=== PATIENT | male | born 1965 | race African-American/Black ===

== ENCOUNTER → 2016-08-22 | Outpatient (REF) | payer MEDICAID ==
[~2016-08-22] MED LIST: /ADVA50050 IN; /AMLO25TA PO; /CLON1TA PO; /MOXI40TA PO; /QUET10TA OR; /SUCR1TA OR; /THIA10TA; /THIA10TA OR; ALBU17IN INH; ALBU17IN2 INH; ASPI325T PO; ATEN50TA2 PO; ATENPOW PO; ATOR40TA PO; ATRIPLA OR; ATRIPLA PO; BIAX500T; BUPR150T3 PO; BUPR15TA PO; BUPR75TA5 PO; CATA0.3T; CLON-412 PO; CLON0.2T OR; DESYREL; DILA2TAB OR; DULE200A INH; FOLI1TAB; FOLI1TAB OR; FOLI1TAB86 PO; FOLI5INJ2 PO; GABA-283 PO; HIV MED PO; IBUP60TA PO; IBUP800T23 PO; MELA1CAP2 PO; MUCI600T34 PO; MULTIVIT PO; Magnesium Oxide PO; NICO21DI4 TD; NICO21DI5 TD; NORV5TAB OR; NORV5TAB PO; NYSTATIN ORAL OR; NYSTATIN ORAL PO; OMEP40CA2 PO; PAXI20TA OR; PERC5TAB6 PO; PERC5TAB8; PERC5TAB8 OR; PERCOCET PO; PRIL40CA OR; QUET1TAB10 PO; SERO1TAB2 PO; SERO200T PO; TENO50TA PO; THERGRAN PO; TRAZ100T4 PO; TYLE325T5 PO; VITA100T2 PO; VITA100T60 PO; VITACHTA PO; WELL100T OR; WELL100T PO; WELL150T PO; WELL75TA PO; ZANT150T; ZANT150T OR; ZOFR20TA PO; ZOFR4SOL PO; ZOLO100T PO; albuterol inhaler INH; clonidine PO
[2016-08-22 16:14] LABS: ALBUMIN 3.7 GM/DL (3.2-5.2); ALBUMIN/GLOBULIN RATIO 0.84 (1.00-1.93); ALKALINE PHOSPHATASE 97 U/L (45-117); ALT/SGPT 46 U/L (12-78); AMYLASE 55 U/L (25-115); ANION GAP 7 MEQ/L (8-16); AST/SGOT 33 U/L (15-37); BILIRUBIN,TOTAL 0.2 MG/DL (0.2-1.0); BLOOD UREA NITROGEN 10 MG/DL (7-18); CALCIUM LEVEL 9.3 MG/DL (8.5-10.1); CARBON DIOXIDE LEVEL 29 MEQ/L (21-32); CHLORIDE LEVEL 102 MEQ/L (98-107); CHOLESTEROL LEVEL 178 MG/DL (<200); CREATININE FOR GFR 1.18 MG/DL (0.70-1.30); GLOMERULAR FILTRATION RATE > 60.0 (>56); GLUCOSE, FASTING 76 MG/DL (70-105); POTASSIUM SERUM 4.4 MEQ/L (3.5-5.1); SODIUM LEVEL 138 MEQ/L (136-145); TOTAL PROTEIN 8.1 GM/DL (6.4-8.2); TRIGLYCERIDES LEVEL 116 MG/DL (<150)
[2016-08-24 14:13] LABS: %CD3+CD4+CD8+ 4.7 % (Not Estab.); %CD3+CD4+CD8- 45.3 % (Not Estab.); %CD3+CD4-CD8+ 29.8 % (Not Estab.); %CD3+CD4-CD8- 2.3 % (Not Estab.); ABS CD3+CD4+CD8+ 85 /uL (Not Estab.); ABS CD3+CD4+CD8- 815 /uL (Not Estab.); ABS CD3+CD4-CD8+ 536 /uL (Not Estab.); ABS CD3+CD4-CD8- 41 /uL (Not Estab.); CD4/CD8 NYSDOH RATIO 1.52 (Not Estab.); Eosinophils 1 % (.); HCT 39.9 % (37.5-51.0); HGB 13.4 g/dL (12.6-17.7); Monocytes 9 % (.); Neutrophils 41 % (.); WBC 3.8 x10E3/uL (3.4-10.8)
== END ==
LOC: M SFHCPLAZ 12:16
PROVIDERS: ATTEND Internal Medicine Infectious Disease
DX: K86.0 Alcohol-induced chronic pancreatitis (principal); B20 Human immunodeficiency virus [HIV] disease; Z13.220 Encounter for screening for lipoid disorders

== ENCOUNTER → 2016-12-12 | Outpatient (REF) | payer MEDICAID ==
[2016-12-12 13:04] LABS: ALBUMIN 3.9 GM/DL (3.2-5.2); ALBUMIN/GLOBULIN RATIO 0.87 (1.00-1.93); ALKALINE PHOSPHATASE 139 U/L (45-117); ALT/SGPT 45 U/L (12-78); ANION GAP 8 MEQ/L (8-16); AST/SGOT 30 U/L (15-37); BILIRUBIN,TOTAL 0.1 MG/DL (0.2-1.0); BLOOD UREA NITROGEN 16 MG/DL (7-18); CALCIUM LEVEL 8.7 MG/DL (8.5-10.1); CARBON DIOXIDE LEVEL 26 MEQ/L (21-32); CHLORIDE LEVEL 104 MEQ/L (98-107); CREATININE FOR GFR 1.24 MG/DL (0.70-1.30); GLOMERULAR FILTRATION RATE > 60.0 (>56); GLUCOSE, FASTING 119 MG/DL (70-105); POTASSIUM SERUM 4.5 MEQ/L (3.5-5.1); SODIUM LEVEL 138 MEQ/L (136-145); TOTAL PROTEIN 8.4 GM/DL (6.4-8.2)
[2016-12-14 00:07] LABS: %CD3+CD4+CD8+ 4.8 % (Not Estab.); %CD3+CD4+CD8- 40.1 % (Not Estab.); %CD3+CD4-CD8+ 27.1 % (Not Estab.); %CD3+CD4-CD8- 1.7 % (Not Estab.); ABS CD3+CD4+CD8+ 120 /uL (Not Estab.); ABS CD3+CD4+CD8- 1003 /uL (Not Estab.); ABS CD3+CD4-CD8+ 678 /uL (Not Estab.); ABS CD3+CD4-CD8- 43 /uL (Not Estab.); CD4/CD8 NYSDOH RATIO 1.48 (Not Estab.); Eosinophils 5 % (.); HCT 38.9 % (37.5-51.0); HGB 13.2 g/dL (12.6-17.7); Monocytes 11 % (.); Neutrophils 40 % (.); WBC 5.5 x10E3/uL (3.4-10.8)
== END ==
LOC: M SFHCPLAZ 09:54
PROVIDERS: ATTEND Internal Medicine Infectious Disease
DX: B20 Human immunodeficiency virus [HIV] disease (principal); R39.198 Other difficulties with micturition

== ENCOUNTER 2017-02-17 15:44 | Inpatient (IN) | payer MEDICAID ==
[~2017-02-17] VITALS: Ht 175.3 cm; Wt 70.8 kg
[~2017-02-17 15:44] MED LIST changes: -ATOR40TA PO; +ATOR40TA75 PO; +IBUP1TAB6 PO; +IBUP1TAB7 PO; -IBUP60TA PO; -IBUP800T23 PO; +PERC5TAB12 PO; -PERC5TAB6 PO; +TRAZ-136 PO; -TRAZ100T4 PO
[2017-02-17] MEDS ORDERED: MIRT45TA PO (16:05)
[2017-02-17] MEDS ORDERED: BUPR300T34 PO (17:21)
[2017-02-17] MEDS ORDERED: HYDR-643 PO (17:21)
[2017-02-17] MEDS ORDERED: MIRT30TA3 PO (17:21)
[2017-02-17 17:26] LABS: MEAN CORPUSCULAR HGB CONC 34.4 g/dl (32.0-36.5); MEAN CORPUSCULAR VOLUME 93.1 fl (80.0-96.0); RED CELL DISTRIBUTION WIDTH 12.7 % (11.5-14.5); WHITE BLOOD COUNT 5.4 K/mm3 (4.0-10.0)
[2017-02-17 17:44] LABS: ALBUMIN 3.5 GM/DL (3.2-5.2); ALBUMIN/GLOBULIN RATIO 0.85 (1.00-1.93); ALKALINE PHOSPHATASE 116 U/L (45-117); ALT/SGPT 25 U/L (12-78); ANION GAP 6 MEQ/L (8-16); AST/SGOT 19 U/L (15-37); BILIRUBIN,DIRECT 0.1 MG/DL (0.0-0.2); BILIRUBIN,TOTAL 0.5 MG/DL (0.2-1.0); BLOOD UREA NITROGEN 13 MG/DL (7-18); CALCIUM LEVEL 8.9 MG/DL (8.5-10.1); CARBON DIOXIDE LEVEL 27 MEQ/L (21-32); CHLORIDE LEVEL 104 MEQ/L (98-107); CREATININE FOR GFR 1.27 MG/DL (0.70-1.30); GLOMERULAR FILTRATION RATE > 60.0 (>56); GLUCOSE, FASTING 92 MG/DL (70-105); POTASSIUM SERUM 4.3 MEQ/L (3.5-5.1); SODIUM LEVEL 137 MEQ/L (136-145); TOTAL PROTEIN 7.6 GM/DL (6.4-8.2)
[2017-02-17 18:54] LABS: METHADONE URINE NEGATIVE (NEGATIVE)
[2017-02-17 21:54] VITALS: BP 140/88
[2017-02-17] MEDS: MIRTAZAPINE 15 MG TAB PO SCH (22:48)
[2017-02-17] MEDS: traZODone 100 MG TAB PO SCH (22:49)
[2017-02-18 06:23] VITALS: BP 132/72
[2017-02-18] MEDS: buPROPion **XL** TABLET 150MG (WELLBUTRIN XL) PO SCH (08:44)
[2017-02-18] MEDS: GABAPENTIN 400 MG CAP PO SCH ×3 (08:45→21:30)
[2017-02-18] MEDS: NICOTINE 14 MG/24 HR TRANSDERMAL TD SCH (08:45)
[2017-02-18] MEDS ORDERED: ALBUTEROL 90 MCG/ACT 8GM HFA INHALER INH PRN (09:00)
--- NOTE | 2017-02-18 09:14 | HPEPDOC ---
Medical History and Physical Date of Admission Feb 17, 2017 at 19:23 History and Physical PCP: Dr Gabrielle Moya ATTENDING: Dr. Tu Scott HPI: 51yoM admitted to [facility] for MDD, being medically examined today. He has had upper abdominal pain. Denies nausea or vomiting. Denies diarrhea or constipation. He has been eating and drinking. He reports poor appetite. Denies any fevers, chills, ACOSTA, CP, SOB, cough, palpitations, or changes in bowel or bladder habits. PMHx: HIV Hypertension Asthma Insomnia GERD anxiety Depression History of alcohol use History of alcoholic pancreatitis/chronic pancreatitis PSHX: Right knee surgery EGD 06/06 SOCHX: Resides in: [facility] Marital Status: Single Kids: 4 Employment: Unemployed Tobacco use: One half pack per day ETOH: 6-12 drinks per day Illicit Drugs: Marijuana monthly, cocaine over the past 2 weeks IV Drug Use: Denies Tattoos done unprofessionally: 1 FAMHX: Mother: Alive, well Father: Siblings: Alive, well Children: Alive, well Unexpected deaths due to medical reasons: None. ROS: As noted in HPI, otherwise 11pt ROS of systems reviewed and unremarkable. PE: GEN: 51 yoM, appears stated age. Well-nourished, well developed. No acute distress. Alert and oriented x 3. Pleasant, interactive. HEENT: Normocephalic, atraumatic. Pupils are equal, round, and reactive to light. Extraocular movements are intact. No nystagmus appreciated. Sclera are nonicteric. Conjunctiva without injection. Nose midline. Nasal turbinates without bogginess. EACs both patent BL. TMs both visualized and tolentino with good cone of light, no bulging or erythema. No facial asymmetry. Moist mucous membranes. Dentition fair. Pharynx pink and moist, no cobblestoning. Neck supple , trachea midline. No lymphadenopathy or thyromegaly appreciated. CHEST: Regular rate and rhythm, +S1, +S2 LUNGS: Clear to auscultation bilaterally. No wheezes, rales, or rhonchi. Breathing appears symmetric and easy. Patient is speaking in full sentences. No accessory muscle use. ABD: Flat, soft, Mild TTP epigastric area/RUQ, non-distended. +Bowel sounds throughout. No rebound or guarding. No costovertebral angle tenderness. EXT: Pulses 2+ bilaterally dorsalis pedis and radial. No lower extremity edema appreciated. SKIN: [place], dry, warm. Capillary refill <2sec. No rashes. NEURO: Alert and oriented x 3. Cranial nerves III-XII are intact. No focal deficits appreciated. EKG: Pending A&P: 51yoM admitted to [facility] for MDD 1. Psych. Plan per Psychiatry. Obtain baseline EKG to assure the safety of psychiatric medications as they can prolong the QT interval. 2. Nicotine dependence. Patch available. 3. Abdominal pain. Afebrile. Request CT scan abdomen and pelvis. Update CBC/ CMP. Request amylase/lipase. 4. Follow up with PCP on discharge. 5. Substance use. Per psychiatry. 6. Hypertension. Continue amlodipine 5 mg daily. 7. Asthma. Continue albuterol 2 puffs every 4 hours as needed. 8. GERD. Continue Prilosec 40 mg daily. 9. HIV. Management as per Dr. Moya. Continue with Atripla 1 tablet daily. 10. Staff member Chucho present throughout exam. Vital Signs Vital Signs Date Time Temp Pulse Resp B/P (MAP) Pulse Ox O2 Delivery O2 Flow Rate FiO2 02/18/17 06:23 97.4 71 18 132/72 (92) 02/17/17 21:25 100 Room Air Laboratory Data Labs 24H Laboratory Tests 2 02/17/17 16:32: Urine Amphetamines Screen NEGATIVE, Urine Benzodiazepines Screen NEGATIVE, Urine Opiates Screen NEGATIVE, Urine Methadone Screen NEGATIVE, Urine Barbiturates Screen NEGATIVE, Urine Phencyclidine Screen NEGATIVE, Urine Cocaine Metabolite Screen POSITIVEH, Urine Cannabinoids Screen NEGATIVE 02/17/17 16:51: Anion Gap 6L, Glomerular Filtration Rate > 60.0, Calcium Level 8.9, Aspartate Amino Transf (AST/SGOT) 19, Alanine Aminotransferase (ALT/SGPT) 25, Alkaline Phosphatase 116, Total Bilirubin 0.5, Direct Bilirubin 0.1, Total Protein 7.6, Albumin 3.5, Albumin/Globulin Ratio 0.85L, Thyroid Stimulating Hormone (TSH) 1.190, Salicylates Level 5.5, Acetaminophen Level < 2.0L, Ethyl Alcohol Level < 0.003 CBC/BMP Laboratory Tests 02/17/17 16:51 Red Blood Count 4.47, Mean Corpuscular Volume 93.1, Mean Corpuscular Hemoglobin 32.0, Mean Corpuscular Hemoglobin Concent 34.4, Red Cell Distribution Width 12.7 Home Medications Scheduled Amlodipine Besylate (Norvasc) 5 Mg Tab, 5 MG PO DAILY Bupropion HCl (Bupropion HCl Xl) 300 Mg Tab, 300 MG PO DAILY Efavirenz/Emtricitabine/Tenofi (Atripla 600-200-300 mg) 1 Tab Tab, 1 TAB PO QAM take on an empty stomach Gabapentin (Gabapentin) 400 Mg Cap, 400 MG PO TID Mirtazapine (Mirtazapine) 30 Mg Tab, 30 MG PO QHS Omeprazole (Omeprazole) 40 Mg Cap, 40 MG PO DAILY Trazodone HCl (Trazodone HCl) 100 Mg Tab, 100 MG PO QHS Scheduled PRN Albuterol Sulfate (Ventolin Hfa) 200 Puff/8 Gm Aers, 2 PUFF INH Q4H PRN for SHORTNESS OF BREATH Hydroxyzine HCl (Hydroxyzine HCl) 10 Mg Tab, 10 MG PO BID PRN for ANXIETY/ AGITATION Ibuprofen (Ibuprofen) 600 Mg Tab, 600 MG PO Q6H PRN for PAIN Allergies Coded Allergies: Banana (Verified Allergy, Intermediate, HIVES, 10/28/12) No Known Drug Allergy (Verified Allergy, Unknown, 10/28/12) Sylvia Forrest Feb 18, 2017 09:14
[2017-02-18] MEDS: amLODIPine 5 MG TAB PO SCH (09:28)
[2017-02-18] MEDS: OMEPRAZOLE 20 MG CAP PO SCH (09:28)
[2017-02-18 10:07] LABS: BASO % 1.3 % (0.0-1.0); EOS # 0.1 K/mm3 (0.0-0.50); EOS % 3.6 % (0.0-3.0); LARGE UNSTAINED CELL # 0.1 K/mm3 (0.0-0.4); LARGE UNSTAINED CELL % 3.1 % (0.0-4.0); LYMPH # 1.4 K/mm3 (1.5-4.5); LYMPH % 38.3 % (24.0-44.0); MEAN CORPUSCULAR HEMOGLOBIN 31.6 pg (27.0-33.0); MEAN CORPUSCULAR HGB CONC 33.5 g/dl (32.0-36.5); MEAN CORPUSCULAR VOLUME 94.4 fl (80.0-96.0); MONO # 0.3 K/mm3 (0.0-0.8); NEUTROPHILS # 1.5 K/mm3 (1.8-7.7); NEUTROPHILS % 45.8 % (36.0-66.0); PLATELET COUNT, AUTOMATED 215 k/mm3 (150-450); WHITE BLOOD COUNT 3.4 K/mm3 (4.0-10.0)
[2017-02-18 10:18] LABS: ALBUMIN 3.1 GM/DL (3.2-5.2); ALBUMIN/GLOBULIN RATIO 0.86 (1.00-1.93); ALKALINE PHOSPHATASE 99 U/L (45-117); ALT/SGPT 23 U/L (12-78); AMYLASE 45 U/L (25-115); ANION GAP 8 MEQ/L (8-16); AST/SGOT 19 U/L (15-37); BILIRUBIN,TOTAL 0.2 MG/DL (0.2-1.0); BLOOD UREA NITROGEN 13 MG/DL (7-18); CALCIUM LEVEL 8.9 MG/DL (8.5-10.1); CARBON DIOXIDE LEVEL 25 MEQ/L (21-32); CHLORIDE LEVEL 102 MEQ/L (98-107); CREATININE FOR GFR 1.34 MG/DL (0.70-1.30); GLOMERULAR FILTRATION RATE > 60.0 (>56); GLUCOSE, FASTING 282 MG/DL (70-105); POTASSIUM SERUM 4.5 MEQ/L (3.5-5.1); SODIUM LEVEL 135 MEQ/L (136-145); TOTAL PROTEIN 6.7 GM/DL (6.4-8.2)
[2017-02-18] MEDS: ATRIPLA TAB PO SCH (11:46)
[2017-02-18] MEDS: ACETAMINOPHEN TAB 650MG DOSE (2X325MG) PO PRN ×2 (11:48→22:34)
--- NOTE | 2017-02-18 12:23 | REP ---
CT of the abdomen and pelvis without IV or bowel contrast: Comparisons are 07/13/2016 and 2015. The visualized lung steiner are unremarkable. The unenhanced hepatic parenchyma is homogeneous. The gallbladder is unremarkable. There is ingested opaque material in the stomach, possibly ingested medicinal tablets. There are multiple small calcifications related to the uncinate process of the pancreas, unchanged from the comparison studies, possibly sequelae of prior pancreatitis. There are no acute pancreatic inflammatory changes. The pancreatic duct is not dilated. Spleen is unremarkable. The adrenals and kidneys are unremarkable. The abdominal aorta is unremarkable. There is no bowel distension. Mesentery is unremarkable. Pelvis: The appendix is not identified, however there is no pericecal inflammation or abscess. There is no pelvic ascites or adenopathy. The bladder is unremarkable. Impression: There are calcifications related to the uncinate process of the pancreas, unchanged from the prior studies, possibly related to prior pancreatitis. There is no evidence of acute pancreatitis by CT. No ascites or adenopathy. No bowel distension. There are small ingested opacities in the stomach, possibly an ingested distal tablets. Otherwise, negative CT study of the abdomen and pelvis. Signed by Blaise Coronado MD 02/18/2017 12:14 P
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
[2017-02-18 18:05] VITALS: BP 108/68
[2017-02-18] MEDS: traZODone 100 MG TAB PO SCH (21:30)
[2017-02-18] MEDS: MIRTAZAPINE 15 MG TAB PO SCH (21:30)
[2017-02-18] MEDS: hydrOXYzine 10 MG TAB PO PRN (21:32)
--- NOTE | 2017-02-18 21:35 | ECGEPIP ---
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
[2017-02-19] MEDS: ATRIPLA TAB PO SCH (05:51)
[2017-02-19] MEDS: ACETAMINOPHEN TAB 650MG DOSE (2X325MG) PO PRN ×3 (05:55→21:51)
[2017-02-19 06:34] VITALS: BP 158/81
[2017-02-19 07:24] LABS: MEAN CORPUSCULAR HEMOGLOBIN 31.8 pg (27.0-33.0); MEAN CORPUSCULAR HGB CONC 33.6 g/dl (32.0-36.5); MEAN CORPUSCULAR VOLUME 94.8 fl (80.0-96.0); WHITE BLOOD COUNT 4.3 K/mm3 (4.0-10.0)
[2017-02-19 07:52] LABS: ALBUMIN 3.1 GM/DL (3.2-5.2); ALBUMIN/GLOBULIN RATIO 0.86 (1.00-1.93); ALKALINE PHOSPHATASE 100 U/L (45-117); ALT/SGPT 21 U/L (12-78); ANION GAP 5 MEQ/L (8-16); AST/SGOT 15 U/L (15-37); BILIRUBIN,TOTAL 0.2 MG/DL (0.2-1.0); BLOOD UREA NITROGEN 12 MG/DL (7-18); CALCIUM LEVEL 8.7 MG/DL (8.5-10.1); CARBON DIOXIDE LEVEL 27 MEQ/L (21-32); CHLORIDE LEVEL 103 MEQ/L (98-107); CREATININE FOR GFR 1.06 MG/DL (0.70-1.30); GLOMERULAR FILTRATION RATE > 60.0 (>56); GLUCOSE, FASTING 133 MG/DL (70-105); POTASSIUM SERUM 3.7 MEQ/L (3.5-5.1); SODIUM LEVEL 135 MEQ/L (136-145); TOTAL PROTEIN 6.7 GM/DL (6.4-8.2)
[2017-02-19] MEDS ORDERED: LORazepam 2 MG TAB PO PRN (09:15)
[2017-02-19] MEDS: OMEPRAZOLE 20 MG CAP PO SCH (09:31)
[2017-02-19] MEDS: buPROPion **XL** TABLET 150MG (WELLBUTRIN XL) PO SCH (09:31)
[2017-02-19] MEDS: FOLIC ACID 1 MG TAB PO SCH (09:31)
[2017-02-19] MEDS: GABAPENTIN 400 MG CAP PO SCH ×3 (09:31→20:30)
[2017-02-19] MEDS: MULTIVITAMINS/MINERALS THERAP 1 TAB PO SCH (09:31)
[2017-02-19] MEDS: THIAMINE 100 MG TAB PO SCH ×2 (09:31→20:30)
[2017-02-19] MEDS: amLODIPine 5 MG TAB PO SCH (09:32)
[2017-02-19 09:34] LABS: AMYLASE 57 U/L (25-115)
[2017-02-19] MEDS: NICOTINE 14 MG/24 HR TRANSDERMAL TD SCH (09:35)
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
[2017-02-19 11:37] VITALS: BP 120/62
[2017-02-19 11:45] VITALS: BP 120/62
[2017-02-19 18:19] VITALS: BP 120/78
[2017-02-19 20:30] VITALS: BP 120/78
[2017-02-19] MEDS: MAALOX 30 ML SUSP *UDC PO PRN (20:31)
[2017-02-19] MEDS: hydrOXYzine 10 MG TAB PO PRN (21:51)
[2017-02-19] MEDS: traZODone 100 MG TAB PO SCH (21:51)
[2017-02-19] MEDS: MIRTAZAPINE 15 MG TAB PO SCH (21:51)
[2017-02-20] MEDS: MAALOX 30 ML SUSP *UDC PO PRN (03:37)
[2017-02-20] MEDS: MOM 30ML SUSPENSION UDC PO PRN ×2 (04:45→12:42)
[2017-02-20] MEDS ORDERED: ISOVUE-370 76% 100ML VIAL (Q9967) As Ordered ONE (05:36)
[2017-02-20] MEDS ORDERED: GASTROGRAFIN SOLUTION 30ML PO ONE (06:30)
[2017-02-20 06:56] VITALS: BP 129/77
[2017-02-20] MEDS ORDERED: GASTROGRAFIN SOLUTION 30ML (Q9963) PO ONE (07:00)
[2017-02-20 07:51] VITALS: BP 129/77
[2017-02-20] MEDS: ATRIPLA TAB PO SCH (08:43)
[2017-02-20] MEDS: GABAPENTIN 400 MG CAP PO SCH ×3 (08:43→21:48)
[2017-02-20] MEDS: FOLIC ACID 1 MG TAB PO SCH (08:43)
[2017-02-20] MEDS: OMEPRAZOLE 20 MG CAP PO SCH (08:43)
[2017-02-20] MEDS: amLODIPine 5 MG TAB PO SCH (08:43)
[2017-02-20] MEDS: buPROPion **XL** TABLET 150MG (WELLBUTRIN XL) PO SCH (08:44)
[2017-02-20] MEDS: MULTIVITAMINS/MINERALS THERAP 1 TAB PO SCH (08:44)
[2017-02-20] MEDS: THIAMINE 100 MG TAB PO SCH ×2 (08:44→21:48)
[2017-02-20] MEDS: NICOTINE 14 MG/24 HR TRANSDERMAL TD SCH (08:44)
[2017-02-20] MEDS: ACETAMINOPHEN TAB 650MG DOSE (2X325MG) PO PRN ×2 (08:48→21:49)
--- NOTE | 2017-02-20 10:00 | IPNPDOC ---
Date Seen The patient was seen on 02/20/17. Progress Note HPI: 51yoM admitted to [facility] for MDD. Patient states he has continues to have upper abdominal pain. Denies nausea or vomiting. Denies diarrhea or constipation. He has been eating and drinking, reports less appetite this morning. He reports poor appetite overall. Denies any fevers, chills, ACOSTA, CP, SOB, cough, palpitations, or changes in bowel or bladder habits. PMHx: HIV Hypertension Asthma Insomnia GERD anxiety Depression History of alcohol use History of alcoholic pancreatitis/chronic pancreatitis PSHX: Right knee surgery EGD 06/06 PE: GEN: 51 yoM, appears stated age. Well-nourished, well developed. Alert and oriented x 3. Pleasant, interactive. HEENT: Normocephalic, atraumatic. Pupils are equal, round, and reactive to light. Conjunctiva without injection. Nose midline. Nasal turbinates without bogginess. EACs both patent BL. Moist mucous membranes. Pharynx pink and moist , no cobblestoning. Neck supple, trachea midline. No lymphadenopathy or thyromegaly appreciated. CHEST: Regular rate and rhythm, +S1, +S2 LUNGS: Clear to auscultation bilaterally. No wheezes, rales, or rhonchi. Breathing appears symmetric and easy. Patient is speaking in full sentences. No accessory muscle use. ABD: Flat, soft, Mild TTP epigastric area/RUQ, non-distended. +Bowel sounds throughout. No rebound or guarding. No costovertebral angle tenderness. EXT: Pulses 2+ bilaterally dorsalis pedis and radial. No lower extremity edema appreciated. SKIN: Regino Ramirez, dry, warm. Capillary refill <2sec. No rashes. NEURO: Alert and oriented x 3. Cranial nerves III-XII are intact. No focal deficits appreciated. EK02/18/[address] abdomen and pelvis 02/18/17 There are calcifications related to the uncinate process of the pancreas, unchanged from the prior studies, possibly related to prior pancreatitis. There is no evidence of acute pancreatitis by CT. No ascites or adenopathy. No bowel distension. There are small ingested opacities in the stomach, possibly an ingested distal tablets. Otherwise, negative CT study of the abdomen and pelvis. A&P: 51yoM admitted to [facility] for MDD 1. Psych. Plan per Psychiatry. EKG on file. 2. Nicotine dependence. Patch available. 3. Abdominal pain. Afebrile since admission. CT scan abdomen and pelvis NAD . CT scan abdomen and pelvis requested this a.m. and results are pending at this time. Update CBC/CMP/amylase/lipase. 4. Follow up with PCP on discharge. 5. Substance use. Per psychiatry. 6. Hypertension. Continue amlodipine 5 mg daily. 7. Asthma. Continue albuterol 2 puffs every 4 hours as needed. 8. GERD. Continue Prilosec 40 mg daily. 9. HIV. Management as per Dr. Moya. Continue with Atripla 1 tablet daily. 10. Staff member Ed present throughout exam. VS, I&O, 24H, Fishbone Vital Signs/I&O Vital Signs Date Time Temp Pulse Resp B/P (MAP) Pulse Ox O2 Delivery O2 Flow Rate FiO2 02/20/17 08:43 80 129/77 02/20/17 06:56 97.8 18 Room Air 02/17/17 21:25 100 Sylvia Forrest Feb 20, 2017 10:00
[2017-02-20 11:07] LABS: BASO % 1.2 % (0.0-1.0); EOS # 0.1 K/mm3 (0.0-0.50); EOS % 3.6 % (0.0-3.0); LARGE UNSTAINED CELL # 0.2 K/mm3 (0.0-0.4); LYMPH # 1.6 K/mm3 (1.5-4.5); MEAN CORPUSCULAR HEMOGLOBIN 31.1 pg (27.0-33.0); MEAN CORPUSCULAR HGB CONC 33.7 g/dl (32.0-36.5); MEAN CORPUSCULAR VOLUME 92.4 fl (80.0-96.0); MONO # 0.3 K/mm3 (0.0-0.8); MONO % 6.8 % (0.0-5.0); NEUTROPHILS # 1.7 K/mm3 (1.8-7.7); NEUTROPHILS % 43.3 % (36.0-66.0); PLATELET COUNT, AUTOMATED 211 k/mm3 (150-450); RED CELL DISTRIBUTION WIDTH 12.5 % (11.5-14.5)
[2017-02-20 11:32] LABS: ALBUMIN 3.1 GM/DL (3.2-5.2); ALBUMIN/GLOBULIN RATIO 0.82 (1.00-1.93); ALKALINE PHOSPHATASE 97 U/L (45-117); ALT/SGPT 22 U/L (12-78); AMYLASE 56 U/L (25-115); ANION GAP 4 MEQ/L (8-16); AST/SGOT 10 U/L (15-37); BILIRUBIN,TOTAL 0.1 MG/DL (0.2-1.0); BLOOD UREA NITROGEN 7 MG/DL (7-18); CALCIUM LEVEL 8.6 MG/DL (8.5-10.1); CARBON DIOXIDE LEVEL 31 MEQ/L (21-32); CHLORIDE LEVEL 104 MEQ/L (98-107); CREATININE FOR GFR 1.11 MG/DL (0.70-1.30); GLOMERULAR FILTRATION RATE > 60.0 (>56); GLUCOSE, FASTING 146 MG/DL (70-105); POTASSIUM SERUM 4.1 MEQ/L (3.5-5.1); SODIUM LEVEL 139 MEQ/L (136-145); TOTAL PROTEIN 6.9 GM/DL (6.4-8.2)
[2017-02-20 12:00] VITALS: BP 131/72
--- NOTE | 2017-02-20 14:07 | REP ---
CT of the abdomen pelvis without IV contrast but with oral bowel contrast. Comparison 02/18/2017. Multiple small calcifications are again noted in the region of the pancreatic uncinate process as previously. However, on the study today there is slightly more fullness in the pancreatic uncinate process and slightly more lucency in the uncinate process. This is nonspecific. However, with continued abdominal pain, the possibility of pancreatic mass and /or acute pancreatitis of the uncinate process is raised. With this in mind, I would recommend pancreatic MRI for follow up evaluation. The visualized lung steiner are unremarkable. The unenhanced hepatic parenchyma is homogeneous. The gallbladder and spleen are normal size and unremarkable. The adrenals, kidneys and abdominal aorta are unremarkable. There is no bowel distension or obstruction. Mesentery is unremarkable. Pelvis: The appendix is unremarkable. There is no ascites or adenopathy. The bladder is unremarkable. The pelvic bowel loops are unremarkable. Impression: There are calcifications in the pancreatic uncinate process, unchanged. However, there is slightly more fullness and lucency in the pancreatic uncinate process at today. Findings are nonspecific and could represent pancreatic neoplasm or focal pancreatitis. Therefore, I would recommend pancreatic MRI for further evaluation of this finding. Otherwise, essentially negative CT study of the abdomen and pelvis. Signed by Blaise Coronado MD 02/20/2017 01:59 P
[2017-02-20] MEDS ORDERED: IBUPROFEN 800 MG TAB PO PRN (15:15)
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
--- NOTE | 2017-02-20 17:06 | REP ---
MRI PANCREAS WITH AND WITHOUT CONTRAST: COMPARISON: CT abdomen 02/20/2017. Multiple sequences are obtained in the axial and coronal planes prior to and following the intravenous administration of 14 mL gadolinium via power injector. Pancreas demonstrates no mass. There is no pancreatic duct dilatation. Visualized portions of the liver, spleen, adrenals, and kidneys are unremarkable. There is no adenopathy or free fluid. IMPRESSION: No evidence of pancreatic mass. Signed by Blaise Steve MD 02/20/2017 06:00 P
[2017-02-20 18:00] VITALS: BP 142/77
[2017-02-20] MEDS: hydrOXYzine 10 MG TAB PO PRN (21:48)
[2017-02-20] MEDS: MIRTAZAPINE 15 MG TAB PO SCH (21:48)
[2017-02-20] MEDS: traZODone 100 MG TAB PO SCH (21:48)
[2017-02-21] MEDS: ATRIPLA TAB PO SCH (05:57)
[2017-02-21 06:17] VITALS: BP 142/61
--- NOTE | 2017-02-21 08:25 | MHIPNPDOC ---
[facility] Progress Note Progress Note DATE OF SERVICE: 02/21/17 HISTORY: Day 5 of admission:Patient is a 51-year-old male who presented to [facility] ED stating he was experiencing suicidal ideation with plan to overdose with increasing depression over the past month since the suicide of his girlfriend who of intentional overdose. Patient indicates present time is the one month anniversary of his girlfriend's and notes he has been experiencing increasing symptoms of depression, anxiety, and suicidal ideation for the past month. Patient notes he has also been experiencing guilt related not calling 911 due to believing girlfriend was intoxicated and not knowing that she had overdosed on medications. Patient has history of multiple prior psychiatric admissions, last admission at [facility] was in 2012 for depression with suicidal ideation with planned overdose, has also made prior attempts to kill self "several times" by way of overdose, hanging, and cutting wrists. Patient notes since girlfriend's he has on rare occasion heard a voice tell him he is "weak," notes he last heard voice couple days prior to admission while thinking about girlfriend. VITAL SIGNS: See below. NEW TEST RESULTS: NEW TEST RESULTS: 02/20/17 labs indicate elevated glucose and neut #, and low RBC, Hgb, HCT, mono %, eos %, baso %, anion gap, total bilirubin , AST, albumin, AGR. PA is aware, has ordered imaging. 02/20/17 CT abdomen - There are calcifications in the pancreatic uncinate process, unchanged. However , there is slightly more fullness and lucency in the pancreatic uncinate process at today. Findings are nonspecific and could represent pancreatic neoplasm or focal pancreatitis. Otherwise, essentially negative CT study of the abdomen and pelvis. Recommendation made for pancreatic MRI for further evaluation. 02/20/17 gastroenterology consult requested, results pending 02/20/17 MRI abdomen - results pending CURRENT MEDICATIONS: See below. MENTAL STATUS EXAMINATION: Patient is a 51-year old male, who is in bed with eyes closed. He is clean shaven. aroused easily, wearing street clothes. Speech: Is clear, spontaneous. Language skills are intact Thought processes including: goal directed Thought content: appropriate. Abstract reasoning, and computation: good. Description of associations: good. Description of abnormal or psychotic thoughts: none, denies suicidal thoughts, intent or plan. Judgment: fair. Insight: fair. Orientation: well oriented in all spheres. Recent and remote memory: intact Attention span and concentration: poor. Fund of knowledge: full Mood: depressed. Affect: congruent. DIAGNOSES: Major depressive disorder, recurrent, severe, polysubstance use disorder. Rule out substance-induced mood disorder, rule out PTSD, rule out polar disorder, rule out borderline personality disorder ASSESSMENT:pt seen in the absence of his usual provider who is gone today. Pt observed resting in bed most of the day. He declined 1:1 with RN. He was interviewed by the PA who is monitoring his medical condition. Pt denies suicidal ideation and is able to contract for safety. pt complained of inability to sleep since stopping Seroquel. Seroquel irritating to his GI system and not recommended. He states he is unable to sleep with mirtazapine and it just makes him tired all day long. It does not appear the Seroquel was tapered which may be affecting him as well. MANAGEMENT PLAN: continue meds, close observation and CIWA protocol. Enc pt to participate in milieu when his pain is less intense. Encourage pt to utilize more effective coping skills to help him attain his goals of sobriety. Pt has been referred to several [facility] for ongoing treatment. Awaiting placement. Will increase trazodone to 200 mg. It can be increased more if necessary. Will dc mirtazapine as ineffective. Will replace seroquel with hadol 5 mg at hs. TIME SPENT: 15 minutes. Vital Signs Vital Signs Date Time Temp Pulse Resp B/P (MAP) Pulse Ox O2 Delivery O2 Flow Rate FiO2 02/21/17 06:17 97.8 18 71 142/61 (88) 02/20/17 06:56 Room Air 02/17/17 21:25 100 Laboratory Data 24H Labs Laboratory Tests 2 02/20/17 10:32: White Blood Count 4.0, Red Blood Count 4.29L, Hemoglobin 13.3L, Hematocrit 39.6L , Mean Corpuscular Volume 92.4, Mean Corpuscular Hemoglobin 31.1, Mean Corpuscular Hemoglobin Concent 33.7, Red Cell Distribution Width 12.5, Platelet Count 211, Neutrophils (%) (Auto) 43.3, Lymphocytes (%) (Auto) 41.0, Monocytes ( %) (Auto) 6.8H, Eosinophils (%) (Auto) 3.6H, Basophils (%) (Auto) 1.2H, Neutrophils # (Auto) 1.7L, Lymphocytes # (Auto) 1.6, Monocytes # (Auto) 0.3, Eosinophils # (Auto) 0.1, Basophils # (Auto) 0.0, Large Unclassified Cells % 4.0 , Large Unclassified Cells # 0.2, Anion Gap 4L, Glomerular Filtration Rate > 60.0, Blood Urea Nitrogen 7, Creatinine 1.11, Sodium Level 139, Potassium Level 4.1, Chloride Level 104, Carbon Dioxide Level 31, Calcium Level 8.6, Aspartate Amino Transf (AST/SGOT) 10L, Alanine Aminotransferase (ALT/SGPT) 22, Alkaline Phosphatase 97, Total Bilirubin 0.1L, Total Protein 6.9, Albumin 3.1L, Albumin/ Globulin Ratio 0.82L, Amylase Level 56, Lipase 137 02/21/17 07:59: CBC/BMP Laboratory Tests 02/20/17 10:32 Red Blood Count 4.29 L, Mean Corpuscular Volume 92.4, Mean Corpuscular Hemoglobin 31.1, Mean Corpuscular Hemoglobin Concent 33.7, Red Cell Distribution Width 12.5, Neutrophils (%) (Auto) 43.3, Lymphocytes (%) (Auto) 41.0, Monocytes (%) (Auto) 6.8 H, Eosinophils (%) (Auto) 3.6 H, Basophils (%) ( Auto) 1.2 H, Neutrophils # (Auto) 1.7 L, Lymphocytes # (Auto) 1.6, Monocytes # ( Auto) 0.3, Eosinophils # (Auto) 0.1, Basophils # (Auto) 0.0, Calcium Level 8.6, Aspartate Amino Transf (AST/SGOT) 10 L, Alanine Aminotransferase (ALT/SGPT) 22, Alkaline Phosphatase 97, Total Bilirubin 0.1 L, Total Protein 6.9, Albumin 3.1 L Current Medications Current Medications Acetaminophen (Tylenol Tab) 650 mg Q6HP PRN PO HEADACHE or DISCOMFORT Last administered on 02/20/17t 21:49; Start 02/17/17 at 19:30; Stop 03/19/17 at 19:29 Al Hydrox/Mg Hydrox/Simethicone (Mylanta) 30 ml Q4HP PRN PO HEARTBURN/ INDIGESTION Last administered on 02/20/17 03:37; Start 02/17/17 at 19:30; Stop 03/19/17 at 19:29 Albuterol Sulfate (Proventil, Ventolin Hfa) 2 puff Q4H PRN INH SHORTNESS OF BREATH; Start 02/18/17 at 09:00; Stop 03/20/17 at 08:59 Amlodipine Besylate (Norvasc) 5 mg DAILY PO Last administered on 02/20/17 08: 43; Start 02/18/17 at 09:00; Stop 03/20/17 at 08:59 Bupropion HCl (Wellbutrin Xl) 300 mg QAM PO Last administered on 02/20/17 08: 44; Start 02/18/17 at 09:00; Stop 03/20/17 at 08:59 Efavirenz/ Emtricitabine/ Tenofovir (Atripla 600mg/ 200mg/300mg) 1 tab DAILY@ 0600 PO Last administered on 02/21/17 05:57; Start 02/18/17 at 06:00; Stop at 05:59 Folic Acid (Folic Acid) 1 mg DAILY PO Last administered on 02/20/17 08:43; Start 02/19/17 at 09:00; Stop 03/21/17 at 08:59 Gabapentin (Neurontin) 400 mg TID PO Last administered on 02/20/17 21:48; Start 02/18/17 at 09:00; Stop 03/20/17 at 08:59 Home Med (Med Rec Complete!) ASDIRECTED XX ; Start 02/17/17 at 17:30; Stop at 17:30; Status DC Hydroxyzine HCl (Atarax) 10 mg BIDP PRN PO ANXIETY/ AGITATION Last administered on 02/20/17 21:48; Start 02/17/17 at 21:00; Stop 03/19/17 at 20:59 Ibuprofen (Advil) 800 mg Q6HP PRN PO MODERATE PAIN (PS 5-7); Start 02/21/17 at 15:15; Stop 03/22/17 at 15:14 Ibuprofen (Advil) 800 mg Q8HP PRN PO MODERATE PAIN (PS 5-7) Last administered on 02/20/17 15:20; Start 02/20/17 at 15:15; Stop 02/20/17 at 17:30; Status DC Lorazepam (Ativan) 2 mg ASDIRECTED PRN PO SEE PROTOCOL; Start 02/19/17 at 09:15 ; Stop 02/26/17 at 09:14 Magnesium Hydroxide (Milk Of Magnesia) 30 ml DAILYPRN PRN PO CONSTIPATION Last administered on 02/20/17 12:42; Start 02/17/17 at 19:30; Stop 03/19/17 at 19:29 Mirtazapine (Remeron) 30 mg QHS PO Last administered on 02/20/17 21:48; Start 02/17/17 at 21:00; Stop 03/19/17 at 20:59 Multivitamins (Theragram-M) 1 tab DAILY PO Last administered on 02/20/17 08:44 ; Start 02/19/17 at 09:00; Stop 03/21/17 at 08:59 Nicotine (Nicoderm Cq 14mg) 1 patch DAILY TD Last administered on 02/20/17 08: 44; Start 02/18/17 at 09:00; Stop 03/20/17 at 08:59 Omeprazole (PriLOSEC) 40 mg DAILY PO Last administered on 02/20/17 08:43; Start 02/18/17 at 09:00; Stop 03/20/17 at 08:59 Thiamine HCl (Thiamine HCl) 100 mg BID PO Last administered on 02/20/17 21:48 ; Start 02/19/17 at 09:00; Stop 02/21/17 at 23:59 Trazodone HCl (Desyrel) 100 mg QHS PO Last administered on 02/20/17 21:48; Start 02/17/17 at 21:00; Stop 03/19/17 at 20:59 Allergies Coded Allergies: Banana (Verified Allergy, Intermediate, HIVES, 10/28/12) Liliana Zaragoza Feb 21, 2017 08:25
[2017-02-21] MEDS: amLODIPine 5 MG TAB PO SCH (08:28)
[2017-02-21] MEDS: buPROPion **XL** TABLET 150MG (WELLBUTRIN XL) PO SCH (08:28)
[2017-02-21] MEDS: FOLIC ACID 1 MG TAB PO SCH (08:28)
[2017-02-21 08:29] LABS: BASO % 0.8 % (0.0-1.0); EOS # 0.2 K/mm3 (0.0-0.50); EOS % 4.1 % (0.0-3.0); LARGE UNSTAINED CELL # 0.1 K/mm3 (0.0-0.4); LARGE UNSTAINED CELL % 2.3 % (0.0-4.0); LYMPH # 1.9 K/mm3 (1.5-4.5); LYMPH % 45.3 % (24.0-44.0); MEAN CORPUSCULAR HEMOGLOBIN 31.5 pg (27.0-33.0); MEAN CORPUSCULAR HGB CONC 33.7 g/dl (32.0-36.5); MEAN CORPUSCULAR VOLUME 93.4 fl (80.0-96.0); MONO # 0.3 K/mm3 (0.0-0.8); MONO % 7.9 % (0.0-5.0); NEUTROPHILS # 1.6 K/mm3 (1.8-7.7); NEUTROPHILS % 39.6 % (36.0-66.0); PLATELET COUNT, AUTOMATED 193 k/mm3 (150-450); WHITE BLOOD COUNT 3.9 K/mm3 (4.0-10.0)
[2017-02-21] MEDS: THIAMINE 100 MG TAB PO SCH ×2 (08:29→21:57)
[2017-02-21] MEDS: OMEPRAZOLE 20 MG CAP PO SCH ×2 (08:29→21:57)
[2017-02-21] MEDS: GABAPENTIN 400 MG CAP PO SCH ×3 (08:29→21:56)
[2017-02-21] MEDS: NICOTINE 14 MG/24 HR TRANSDERMAL TD SCH (08:29)
[2017-02-21] MEDS: MULTIVITAMINS/MINERALS THERAP 1 TAB PO SCH (08:29)
[2017-02-21] MEDS: IBUPROFEN 800 MG TAB PO PRN ×2 (08:48→21:56)
[2017-02-21 08:51] LABS: ALBUMIN/GLOBULIN RATIO 0.86 (1.00-1.93); ALKALINE PHOSPHATASE 91 U/L (45-117); ALT/SGPT 21 U/L (12-78); AMYLASE 54 U/L (25-115); ANION GAP 9 MEQ/L (8-16); AST/SGOT 13 U/L (15-37); BILIRUBIN,TOTAL 0.1 MG/DL (0.2-1.0); BLOOD UREA NITROGEN 9 MG/DL (7-18); CALCIUM LEVEL 8.4 MG/DL (8.5-10.1); CARBON DIOXIDE LEVEL 28 MEQ/L (21-32); CHLORIDE LEVEL 102 MEQ/L (98-107); CREATININE FOR GFR 1.16 MG/DL (0.70-1.30); GLOMERULAR FILTRATION RATE > 60.0 (>56); GLUCOSE, FASTING 207 MG/DL (70-105); SODIUM LEVEL 139 MEQ/L (136-145); TOTAL PROTEIN 6.5 GM/DL (6.4-8.2)
--- NOTE | 2017-02-21 09:22 | IPNPDOC ---
Date Seen The patient was seen on 02/21/17. Progress Note HPI: 51yoM admitted to [facility] for MDD. Patient states his upper abdominal pain is somewhat improved today but sometimes occurs after eating. He states he had pain all day yesterday. Denies nausea or vomiting. Denies diarrhea or constipation. He has been eating and drinking, and states he did just eat breakfast. He tends to have poor appetite overall. He states he had a bowel movement yesterday. Denies any fevers, chills, A[place]STA, CP, SOB, cough, palpitations, or changes in bowel or bladder habits. PMHx: HIV Hypertension Asthma Insomnia GERD anxiety Depression History of alcohol use History of alcoholic pancreatitis/chronic pancreatitis PSHX: Right knee surgery EGD 06/06 erosive esophagitis. EGD 04/05 erosive esophagitis. PE: GEN: 51 yoM, appears stated age. Well-nourished, well developed. Alert and oriented x 3. Pleasant, interactive. HEENT: Normocephalic, atraumatic. Pupils are equal, round, and reactive to light. Conjunctiva without injection. Nose midline. Nasal turbinates without bogginess. EACs both patent BL. Moist mucous membranes. Pharynx pink and moist , no cobblestoning. Neck supple, trachea midline. No lymphadenopathy or thyromegaly appreciated. CHEST: Regular rate and rhythm, +S1, +S2 LUNGS: Clear to auscultation bilaterally. No wheezes, rales, or rhonchi. Breathing appears symmetric and easy. Patient is speaking in full sentences. No accessory muscle use. ABD: Flat, soft, Mild TTP epigastric area/RUQ unchanged, non-distended. +Bowel sounds throughout. No rebound or guarding. No costovertebral angle tenderness. EXT: Pulses 2+ bilaterally dorsalis pedis and radial. No lower extremity edema appreciated. SKIN: [place], dry, warm. Capillary refill <2sec. No rashes. NEURO: Alert and oriented x 3. Cranial nerves III-XII are intact. No focal deficits appreciated. EK02/18/[address] abdomen and pelvis 02/18/17 There are calcifications related to the uncinate process of the pancreas, unchanged from the prior studies, possibly related to prior pancreatitis. There is no evidence of acute pancreatitis by CT. No ascites or adenopathy. No bowel distension. There are small ingested opacities in the stomach, possibly an ingested distal tablets. Otherwise, negative CT study of the abdomen and pelvis. CT scan abdomen and pelvis 02/20/17 There are calcifications in the pancreatic uncinate process, unchanged. However , there is slightly more fullness and lucency in the pancreatic uncinate process at today. Findings are nonspecific and could represent pancreatic neoplasm or focal pancreatitis. Therefore, I would recommend pancreatic MRI for further evaluation of this finding. Otherwise, essentially negative CT study of the abdomen and pelvis. MRI abdomen 02/20/17 Multiple sequences are obtained in the axial and coronal planes prior to and following the intravenous administration of 14 mL gadolinium via power injector. Pancreas demonstrates no mass. There is no pancreatic duct dilatation. Visualized portions of the liver, spleen, adrenals, and kidneys are unremarkable. There is no adenopathy or free fluid. No evidence of pancreatic mass. A&P: 51yoM admitted to [facility] for MDD 1. Psych. Plan per Psychiatry. EKG on file. 2. Nicotine dependence. Patch available. 3. Abdominal pain. Afebrile since admission. Patient has had breakfast this morning. Denies nausea, vomiting, diarrhea, constipation. States he had a bowel movement yesterday. Imaging as above. CBC/CMP/amylase/lipase in a.m. Gastroenterology opinion pending. Monitor. 4. Follow up with PCP on discharge. 5. Substance use. Per psychiatry. 6. Hypertension. Continue amlodipine 5 mg daily. 7. Asthma. Continue albuterol 2 puffs every 4 hours as needed. 8. GERD. History of esophagitis. Currently Prilosec 40 mg daily. Continue Mylanta 30 mL every 4 hours as needed. Patient has used 2 doses. Will try increasing Prilosec to 40 mg twice a day. Carafate before meals/at bedtime. 9. HIV. Management as per Dr. Moya. Continue with Atripla 1 tablet daily. 10. Staff member Michi present throughout exam. VS, I&O, 24H, Fishbone Vital Signs/I&O Vital Signs Date Time Temp Pulse Resp B/P (MAP) Pulse Ox O2 Delivery O2 Flow Rate FiO2 02/21/17 08:28 83 138/94 02/21/17 06:17 97.8 71 02/20/17 06:56 Room Air 02/17/17 21:25 100 Laboratory Data 24H LABS Item Value Date Time Sodium Level 139 MEQ/L 02/21/17 0759 Potassium Level 4.0 MEQ/L 02/21/17 0759 Chloride Level 102 MEQ/L 02/21/17 0759 Carbon Dioxide Level 28 MEQ/L 02/21/17 0759 Anion Gap 9 MEQ/L 02/21/17758 Blood Urea Nitrogen 9 MG/DL 02/21/17 075 Creatinine 1.16 MG/DL 02/21/17 075 Glomerular Filtration Rate > 60.0 02/21/17 075 Fasting Glucose 207 MG/DL H 02/21/17 0759 Calcium Level 8.4 MG/DL L 02/21/17 075 Total Bilirubin 0.1 MG/DL L 02/21/17 075 Aspartate Amino Transf (AST/SGOT) 13 U/L L 02/21/17 075 Alanine Aminotransferase (ALT/SGPT) 21 U/L 02/21/17 075 Alkaline Phosphatase 91 U/L 02/21/17758 Total Protein 6.5 GM/DL 02/21/179 Albumin 3.0 GM/DL L 02/21/17 075 Albumin/Globulin Ratio 0.86 L 02/21/17 075 Amylase Level 54 U/L 02/21/17 075 Lipase 177 U/L 02/21/17 075 White Blood Count 3.9 K/mm3 L 02/21/17 075 Red Blood Count 4.05 M/mm3 L 02/21/17758 Hemoglobin 12.7 g/dl L 02/21/17758 Hematocrit 37.8 % L 02/21/17758 Mean Corpuscular Volume 93.4 fl 02/21/17758 Mean Corpuscular Hemoglobin 31.5 pg 02/21/17758 Mean Corpuscular Hemoglobin Concent 33.7 g/dl 02/21/17758 Red Cell Distribution Width 13.0 % 02/21/17758 Platelet Count 193 k/mm3 02/21/17 075 Neutrophils (%) (Auto) 39.6 % 02/21/17 075 Lymphocytes (%) (Auto) 45.3 % H 02/21/17 075 Monocytes (%) (Auto) 7.9 % H 02/21/17 075 Eosinophils (%) (Auto) 4.1 % H 02/21/17758 Basophils (%) (Auto) 0.8 % 02/21/17758 Large Unclassified Cells % 2.3 % 02/21/17758 Neutrophils # (Auto) 1.6 K/mm3 L 02/21/17758 Lymphocytes # (Auto) 1.9 K/mm3 02/21/17758 Monocytes # (Auto) 0.3 K/mm3 02/21/17758 Eosinophils # (Auto) 0.2 K/mm3 02/21/17758 Basophils # (Auto) 0.0 K/mm3 02/21/17758 Large Unclassified Cells # 0.1 K/mm3 02/21/17758 Laboratory Tests 2 02/20/17 10:32: White Blood Count 4.0, Red Blood Count 4.29L, Hemoglobin 13.3L, Hematocrit 39.6L , Mean Corpuscular Volume 92.4, Mean Corpuscular Hemoglobin 31.1, Mean Corpuscular Hemoglobin Concent 33.7, Red Cell Distribution Width 12.5, Platelet Count 211, Neutrophils (%) (Auto) 43.3, Lymphocytes (%) (Auto) 41.0, Monocytes ( %) (Auto) 6.8H, Eosinophils (%) (Auto) 3.6H, Basophils (%) (Auto) 1.2H, Neutrophils # (Auto) 1.7L, Lymphocytes # (Auto) 1.6, Monocytes # (Auto) 0.3, Eosinophils # (Auto) 0.1, Basophils # (Auto) 0.0, Large Unclassified Cells % 4.0 , Large Unclassified Cells # 0.2, Anion Gap 4L, Glomerular Filtration Rate > 60.0, Blood Urea Nitrogen 7, Creatinine 1.11, Sodium Level 139, Potassium Level 4.1, Chloride Level 104, Carbon Dioxide Level 31, Calcium Level 8.6, Aspartate Amino Transf (AST/SGOT) 10L, Alanine Aminotransferase (ALT/SGPT) 22, Alkaline Phosphatase 97, Total Bilirubin 0.1L, Total Protein 6.9, Albumin 3.1L, Albumin/ Globulin Ratio 0.82L, Amylase Level 56, Lipase 137 02/21/17 07:59: White Blood Count 3.9L, Red Blood Count 4.05L, Hemoglobin 12.7L, Hematocrit 37.8L, Mean Corpuscular Volume 93.4, Mean Corpuscular Hemoglobin 31.5, Mean Corpuscular Hemoglobin Concent 33.7, Red Cell Distribution Width 13.0, Platelet Count 193, Neutrophils (%) (Auto) 39.6, Lymphocytes (%) (Auto) 45.3H, Monocytes (%) (Auto) 7.9H, Eosinophils (%) (Auto) 4.1H, Basophils (%) (Auto) 0.8, Neutrophils # (Auto) 1.6L, Lymphocytes # (Auto) 1.9, Monocytes # (Auto) 0.3, Eosinophils # (Auto) 0.2, Basophils # (Auto) 0.0, Large Unclassified Cells % 2.3 , Large Unclassified Cells # 0.1, Anion Gap 9, Glomerular Filtration Rate > 60.0 , Blood Urea Nitrogen 9, Creatinine 1.16, Sodium Level 139, Potassium Level 4.0 , Chloride Level 102, Carbon Dioxide Level 28, Calcium Level 8.4L, Aspartate Amino Transf (AST/SGOT) 13L, Alanine Aminotransferase (ALT/SGPT) 21, Alkaline Phosphatase 91, Total Bilirubin 0.1L, Total Protein 6.5, Albumin 3.0L, Albumin/ Globulin Ratio 0.86L, Amylase Level 54, Lipase 177 CBC/BMP Laboratory Tests 02/20/17 10:32 Red Blood Count 4.29 L, Mean Corpuscular Volume 92.4, Mean Corpuscular Hemoglobin 31.1, Mean Corpuscular Hemoglobin Concent 33.7, Red Cell Distribution Width 12.5, Neutrophils (%) (Auto) 43.3, Lymphocytes (%) (Auto) 41.0, Monocytes (%) (Auto) 6.8 H, Eosinophils (%) (Auto) 3.6 H, Basophils (%) ( Auto) 1.2 H, Neutrophils # (Auto) 1.7 L, Lymphocytes # (Auto) 1.6, Monocytes # ( Auto) 0.3, Eosinophils # (Auto) 0.1, Basophils # (Auto) 0.0, Calcium Level 8.6, Aspartate Amino Transf (AST/SGOT) 10 L, Alanine Aminotransferase (ALT/SGPT) 22, Alkaline Phosphatase 97, Total Bilirubin 0.1 L, Total Protein 6.9, Albumin 3.1 L 02/21/17 07:59 Red Blood Count 4.05 L, Mean Corpuscular Volume 93.4, Mean Corpuscular Hemoglobin 31.5, Mean Corpuscular Hemoglobin Concent 33.7, Red Cell Distribution Width 13.0, Neutrophils (%) (Auto) 39.6, Lymphocytes (%) (Auto) 45.3 H, Monocytes (%) (Auto) 7.9 H, Eosinophils (%) (Auto) 4.1 H, Basophils (%) (Auto) 0.8, Neutrophils # (Auto) 1.6 L, Lymphocytes # (Auto) 1.9, Monocytes # ( Auto) 0.3, Eosinophils # (Auto) 0.2, Basophils # (Auto) 0.0, Calcium Level 8.4 L , Aspartate Amino Transf (AST/SGOT) 13 L, Alanine Aminotransferase (ALT/SGPT) 21 , Alkaline Phosphatase 91, Total Bilirubin 0.1 L, Total Protein 6.5, Albumin 3.0 L Sylvia Forrest Feb 21, 2017 09:22
[2017-02-21] MEDS: MAALOX 30 ML SUSP *UDC PO PRN (09:30)
[2017-02-21] MEDS: SUCRALFATE 1 GM TAB PO SCH ×3 (11:33→21:56)
[2017-02-21 11:36] VITALS: BP 123/71
[2017-02-21 18:00] VITALS: BP 135/79
[2017-02-21] MEDS ORDERED: traZODone 100 MG TAB PO SCH (21:00)
[2017-02-21] MEDS: HALOPERIDOL 5 MG TAB PO SCH (21:56)
[2017-02-22] MEDS: MAALOX 30 ML SUSP *UDC PO PRN (01:49)
[2017-02-22] MEDS: hydrOXYzine 10 MG TAB PO PRN ×2 (01:49→08:46)
[2017-02-22] MEDS: ATRIPLA TAB PO SCH (06:03)
[2017-02-22 06:30] VITALS: BP 143/78
[2017-02-22] MEDS: SUCRALFATE 1 GM TAB PO SCH ×4 (06:49→22:02)
[2017-02-22] MEDS: buPROPion **XL** TABLET 150MG (WELLBUTRIN XL) PO SCH (08:43)
[2017-02-22] MEDS: NICOTINE 14 MG/24 HR TRANSDERMAL TD SCH (08:43)
[2017-02-22] MEDS: amLODIPine 5 MG TAB PO SCH (08:43)
[2017-02-22] MEDS: FOLIC ACID 1 MG TAB PO SCH (08:44)
[2017-02-22] MEDS: GABAPENTIN 400 MG CAP PO SCH ×3 (08:44→22:02)
[2017-02-22] MEDS: MULTIVITAMINS/MINERALS THERAP 1 TAB PO SCH (08:44)
[2017-02-22] MEDS: OMEPRAZOLE 20 MG CAP PO SCH ×2 (08:45→22:01)
[2017-02-22] MEDS: IBUPROFEN 800 MG TAB PO PRN (08:47)
[2017-02-22 18:10] VITALS: BP 129/72
[2017-02-22] MEDS: HALOPERIDOL 5 MG TAB PO SCH (22:01)
[2017-02-22] MEDS: traZODone 100 MG TAB PO SCH (22:01)
[2017-02-23] MEDS: ATRIPLA TAB PO SCH (05:50)
[2017-02-23 06:00] VITALS: BP 133/74
[2017-02-23] MEDS: SUCRALFATE 1 GM TAB PO SCH ×4 (06:34→22:03)
[2017-02-23 08:47] VITALS: BP 133/74
[2017-02-23] MEDS: FOLIC ACID 1 MG TAB PO SCH (08:54)
[2017-02-23] MEDS: OMEPRAZOLE 20 MG CAP PO SCH ×2 (08:54→22:03)
[2017-02-23] MEDS: GABAPENTIN 400 MG CAP PO SCH ×3 (08:54→22:03)
[2017-02-23] MEDS: MULTIVITAMINS/MINERALS THERAP 1 TAB PO SCH (08:54)
[2017-02-23] MEDS: buPROPion **XL** TABLET 150MG (WELLBUTRIN XL) PO SCH (08:55)
[2017-02-23] MEDS: NICOTINE 14 MG/24 HR TRANSDERMAL TD SCH (08:56)
[2017-02-23] MEDS: amLODIPine 5 MG TAB PO SCH (08:57)
[2017-02-23 12:00] VITALS: BP 111/60
[2017-02-23 18:18] VITALS: BP 114/64
[2017-02-23 21:00] VITALS: BP 122/70
--- NOTE | 2017-02-23 22:02 | CR ---
DATE OF CONSULTATION: 02/21/2017 This is a 51-year-old white male admitted to the inpatient mental health unit (IMHU) unit for major depressive disorder. The patient has multiple medical problems including HIV status, hypertension, asthma, insomnia, reflux, anxiety, depression, history of alcohol abuse, and previous history of alcoholic pancreatitis. The patient is being seen by gastroenterology (GI) for abdominal pain. The patient states that he had not been drinking but due to a personal loss, he started drinking again and developed abdominal pain. His pain is epigastric in nature. He has no nausea or vomiting. No fevers, sweats or shaking chills. PAST MEDICAL HISTORY: As above. ALLERGIES: No known drug allergies. PAST SURGICAL HISTORY: 1. Right knee surgery. 2. Upper endoscopy in May 2010. SOCIAL HISTORY: Cigarettes: Half a pack a day. Alcohol: 6-12 drinks a day. The patient has a history of use of marijuana monthly and cocaine in the past few weeks. FAMILY HISTORY: Noncontributory to the above problem. REVIEW OF SYSTEMS: Noncontributory PHYSICAL EXAMINATION: GENERAL: He is a well-developed, well-nourished male who is in no acute distress. CHEST: Clear to auscultation. CARDIOVASCULAR: Regular rhythm. No murmurs or gallops. Normal physiological split, S1, S2. ABDOMEN: Soft, nontender. No masses, guarding or rebound. No hepatosplenomegaly. Bowel sounds positive. EXTREMITIES: No cyanosis, clubbing or edema. LABORATORY STUDIES: All within normal limits. Lipase which has been tested over five days has been with normal range. DIAGNOSTIC STUDIES: Abdominal CT showed calcifications of the uncinate process, though the MRI of the abdomen 02/20/2017 did not show any evidence of a pancreatic mass. ASSESSMENT: Abdominal pain of unknown etiology. At the present time, the patient may have some evidence on the CT scans of chronic pancreatitis. He may have had mild bout of pancreatitis but his lipase is normal. There is the possibility that this is alcohol-induced gastritis. He is feeling better since admission and his pain essentially has subsided. He denies any history of diarrhea issues and no voluntary weight loss. PLAN: 1. Continue with his current medications and treat his depression disorder. 2. Not much more to do for chronic pancreatitis. I do not think he needs pancreatic enzyme supplementation since he does not seem to have any evidence of malnutrition or diarrhea. 3. There is no evidence of any pancreatic mass. CT does not show any evidence of pancreatic ductal dilatation or abnormalities except for the calcifications which may be secondary to the at least five bouts of alcohol-induced pancreatitis. The patient advised to try and avoid alcohol intake. Supportive conservative care is recommended at this time.
[2017-02-23] MEDS: traZODone 100 MG TAB PO SCH (22:03)
[2017-02-23] MEDS: HALOPERIDOL 5 MG TAB PO SCH (22:03)
[2017-02-23] MEDS: IBUPROFEN 800 MG TAB PO PRN (22:04)
[2017-02-24] MEDS: ATRIPLA TAB PO SCH (06:00)
[2017-02-24 06:32] VITALS: BP 129/68
[2017-02-24] MEDS: SUCRALFATE 1 GM TAB PO SCH ×4 (06:49→21:57)
[2017-02-24 08:15] VITALS: BP 129/68
[2017-02-24] MEDS: NICOTINE 14 MG/24 HR TRANSDERMAL TD SCH (08:26)
[2017-02-24] MEDS: GABAPENTIN 400 MG CAP PO SCH ×3 (08:26→21:57)
[2017-02-24] MEDS: buPROPion **XL** TABLET 150MG (WELLBUTRIN XL) PO SCH (08:26)
[2017-02-24] MEDS: FOLIC ACID 1 MG TAB PO SCH (08:26)
[2017-02-24] MEDS: MULTIVITAMINS/MINERALS THERAP 1 TAB PO SCH (08:26)
[2017-02-24] MEDS: OMEPRAZOLE 20 MG CAP PO SCH ×2 (08:26→21:56)
[2017-02-24] MEDS: amLODIPine 5 MG TAB PO SCH (08:26)
[2017-02-24] MEDS ORDERED: TRAZ10TA PO (15:28)
[2017-02-24] MEDS ORDERED: SUCR1TA PO (15:28)
[2017-02-24] MEDS ORDERED: HALO5TA PO (15:28)
[2017-02-24] MEDS ORDERED: NICO14PA TD (15:28)
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
[2017-02-24 18:00] VITALS: BP 115/70
[2017-02-24] MEDS: HALOPERIDOL 5 MG TAB PO SCH (21:56)
[2017-02-24] MEDS: IBUPROFEN 800 MG TAB PO PRN (21:57)
[2017-02-24] MEDS: traZODone 100 MG TAB PO SCH (21:57)
[2017-02-25] MEDS: ATRIPLA TAB PO SCH (05:34)
[2017-02-25 06:00] VITALS: BP 113/72
[2017-02-25] MEDS: SUCRALFATE 1 GM TAB PO SCH (06:36)
[2017-02-25] MEDS: GABAPENTIN 400 MG CAP PO SCH (07:55)
[2017-02-25 07:56] VITALS: BP 113/72
[2017-02-25] MEDS: NICOTINE 14 MG/24 HR TRANSDERMAL TD SCH (07:56)
[2017-02-25] MEDS: amLODIPine 5 MG TAB PO SCH (07:56)
[2017-02-25] MEDS: OMEPRAZOLE 20 MG CAP PO SCH (07:56)
[2017-02-25] MEDS: MULTIVITAMINS/MINERALS THERAP 1 TAB PO SCH (07:56)
[2017-02-25] MEDS: buPROPion **XL** TABLET 150MG (WELLBUTRIN XL) PO SCH (07:56)
[2017-02-25] MEDS: FOLIC ACID 1 MG TAB PO SCH (07:56)
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
== END 2017-02-25 08:30 | DRG 751 ==
LOC: M ED 15:44 → M ED INP 19:23 → M PSY 21:48
PROVIDERS: ADMIT Psychiatry & Neurology Psychiatry; ATTEND Psychiatry & Neurology Psychiatry
DX: F33.2 Major depressive disorder, recurrent severe without psychotic features (principal); B20 Human immunodeficiency virus [HIV] disease; R45.851 Suicidal ideations; K86.0 Alcohol-induced chronic pancreatitis; F17.210 Nicotine dependence, cigarettes, uncomplicated; F43.10 Post-traumatic stress disorder, unspecified; I10 Essential (primary) hypertension; J45.909 Unspecified asthma, uncomplicated; K21.9 Gastro-esophageal reflux disease without esophagitis; F31.9 Bipolar disorder, unspecified; F60.9 Personality disorder, unspecified; F19.94 Other psychoactive substance use, unspecified with psychoactive substance-induced mood disorder; Z91.018 Allergy to other foods; Z91.5 Personal history of self-harm; Z79.899 Other long term (current) drug therapy

== ENCOUNTER → 2017-05-15 | Outpatient (REF) | payer MEDICAID ==
[~2017-05-15] MED LIST changes: +ASMA220A2 INH; +BUPR300T34 PO; +HALO5TA PO; +HYDR-643 PO; +MIRT30TA3 PO; +MIRT45TA PO; +NICO14PA TD; +PROT1TAB2 PO; +SUCR1TA PO; +SUCR1TAB56 PO; +TRAZ10TA PO
[2017-05-15 14:02] LABS: ALBUMIN 3.7 GM/DL (3.2-5.2); ALBUMIN/GLOBULIN RATIO 0.95 (1.00-1.93); ALKALINE PHOSPHATASE 101 U/L (45-117); ALT/SGPT 35 U/L (12-78); ANION GAP 6 MEQ/L (8-16); AST/SGOT 25 U/L (15-37); BILIRUBIN,TOTAL 0.2 MG/DL (0.2-1.0); BLOOD UREA NITROGEN 12 MG/DL (7-18); CALCIUM LEVEL 8.9 MG/DL (8.5-10.1); CARBON DIOXIDE LEVEL 29 MEQ/L (21-32); CHLORIDE LEVEL 103 MEQ/L (98-107); CREATININE FOR GFR 1.36 MG/DL (0.70-1.30); GLOMERULAR FILTRATION RATE > 60.0 (>56); GLUCOSE, FASTING 104 MG/DL (70-105); POTASSIUM SERUM 4.1 MEQ/L (3.5-5.1); SODIUM LEVEL 138 MEQ/L (136-145); TOTAL PROTEIN 7.6 GM/DL (6.4-8.2)
[2017-05-23 00:07] LABS: Eosinophils 3 % (Not Estab.); HCT 38.1 % (37.5-51.0); HGB 13.5 g/dL (12.6-17.7); HLA B5701-1 Negative (.); Monocytes 8 % (Not Estab.); Neutrophils 52 % (Not Estab.)
== END ==
LOC: M SFHCPLAZ 09:44
PROVIDERS: ATTEND Internal Medicine Infectious Disease
DX: B20 Human immunodeficiency virus [HIV] disease (principal); R11.0 Nausea

== ENCOUNTER 2017-06-02 12:51 | Inpatient (IN) | payer MEDICAID, OTHER ==
[~2017-06-02] VITALS: Ht 175.3 cm; Wt 71.2 kg
[~2017-06-02 12:51] MED LIST changes: -ASMA220A2 INH; -PROT1TAB2 PO; -SUCR1TAB56 PO
[2017-06-02] MEDS ORDERED: QUET1TAB10 PO (12:58)
[2017-06-02] MEDS ORDERED: CLON-412 PO (12:58)
[2017-06-02] MEDS ORDERED: ASMA220A2 INH (12:58)
[2017-06-02] MEDS ORDERED: NS 1,000 ML IV ONE (14:30)
[2017-06-02] MEDS ORDERED: ONDANSETRON 4MG/2ML VIAL (J2405) IV ONE (14:30)
[2017-06-02] MEDS: MORPHINE 4 MG/ML 1ML SYRINGE IV PRN ×4 (14:41→23:42)
[2017-06-02 14:49] LABS: BASO % 0.3 % (0.0-1.0); EOS % 0.4 % (0.0-3.0); IMMATURE GRANULOCYTE % 0.3 % (0-0); LYMPH # 1.4 10^3/uL (1.5-4.5); LYMPH % 19.5 % (24.0-44.0); MEAN CORPUSCULAR HEMOGLOBIN 32.6 pg (27.0-33.0); MEAN CORPUSCULAR HGB CONC 35.1 g/dl (32.0-36.5); MEAN CORPUSCULAR VOLUME 92.8 fl (80.0-96.0); MONO # 0.6 10^3/uL (0.0-0.8); MONO % 8.1 % (0.0-5.0); NEUTROPHILS # 5.2 10^3/uL (1.8-7.7); NEUTROPHILS % 71.4 % (36.0-66.0); PLATELET COUNT, AUTOMATED 229 10^3/uL (150-450); RED CELL DISTRIBUTION WIDTH 13.3 % (11.5-14.5); WHITE BLOOD COUNT 7.3 10^3/uL (4.0-10.0)
[2017-06-02 15:12] LABS: ALBUMIN 3.9 GM/DL (3.2-5.2); ALBUMIN/GLOBULIN RATIO 0.87 (1.00-1.93); ALKALINE PHOSPHATASE 121 U/L (45-117); ALT/SGPT 69 U/L (12-78); ANION GAP 6 MEQ/L (8-16); AST/SGOT 47 U/L (7-37); BILIRUBIN,DIRECT < 0.1 MG/DL (0.0-0.2); BILIRUBIN,TOTAL 0.3 MG/DL (0.2-1.0); BLOOD UREA NITROGEN 14 MG/DL (7-18); CALCIUM LEVEL 9.1 MG/DL (8.5-10.1); CARBON DIOXIDE LEVEL 28 MEQ/L (21-32); CHLORIDE LEVEL 101 MEQ/L (98-107); CREATININE FOR GFR 1.57 MG/DL (0.70-1.30); GLOMERULAR FILTRATION RATE > 60.0 (>56); GLUCOSE, FASTING 113 MG/DL (70-105); POTASSIUM SERUM 3.7 MEQ/L (3.5-5.1); SODIUM LEVEL 135 MEQ/L (136-145); TOTAL PROTEIN 8.4 GM/DL (6.4-8.2)
--- NOTE | 2017-06-02 16:08 | REP ---
CT ABDOMEN PELVIS WITHOUT CONTRAST: 06/02/2017: Comparison: MRI pancreas 02/20/2017, CT abdomen pelvis 02/20/2017. Clinical history: Abdominal pain, possible pancreatitis. Technique: Small contrast is present versus a oral bismuth preparation. Coronal and sagittal reconstructions provided. Findings: CT abdomen: The lung base shows some dependent atelectatic change. Heart not enlarged and no pericardial thickening or effusion. No hiatal hernia. Liver borderline in size vertical diameter 17.7 cm in midclavicular line for the right lobe mildly prominent left hepatic lobe. No splenomegaly or focal splenic lesion. No hepatic lesion. Gallbladder without calcified stone or mass. The pancreas shows calcifications in its uncinate portion. The pattern and distribution unchanged. There is no pancreatic fluid collection or dilated duct in the head, however along the tail of the pancreas there are inflammatory changes extending to the body of the pancreas. Common duct is dilated and the pancreatic body but not the tail. There is no perforation, abscess or free air in the abdomen or pelvis on limited views. Adrenal glands normal. Kidneys show function without obstruction, stone or mass. Stomach has retained food. Abdominal portion of the colon grossly intact. Small bowel loops without dilatation. Bone windows show lumbar and lower thoracic spine with associated ribs unremarkable. CT pelvis: The bony hips, pelvis, sacrum, SI joints and lumbosacral junction show degenerative changes with subchondral cystic changes acetabular roof, left greater than right and synovial herniation in the neck of the left femoral head. Pubis intact. Pelvis otherwise unremarkable. Show no stone, hydronephrosis, mass or cyst. Ureters normal. Bladder well distended without wall thickening, mass, or stone. No ureteral dilatation or stone. Distal left colon, sigmoid intact. Small bowel loops grossly intact. Cecum unremarkable. No ventral or inguinal hernia. Impression: 1. Evidence of pancreatitis about the body and tail of the pancreas with inflammatory changes in the fat but without fluid collection, mass or abscess. 2. A few punctate calcifications in the uncinate portion of the pancreas unchanged. There is no pancreatitis involving the head of the pancreas. 3. The remainder of the findings in the pelvis unremarkable. Signed by Jerry Clark MD 06/02/2017 05:29 P
[2017-06-02] MEDS ORDERED: BUPR150T3 PO (16:14)
[2017-06-02] MEDS ORDERED: ZOFR20TA PO (16:14)
[2017-06-02] MEDS ORDERED: SUCR1TAB56 PO (16:14)
[2017-06-02] MEDS ORDERED: TRAZ-136 PO (16:14)
[2017-06-02] MEDS ORDERED: PROT1TAB2 PO (16:14)
[2017-06-02] MEDS ORDERED: NS 1,000 ML IV SCH (16:30)
[2017-06-02] MEDS ORDERED: ALBUTEROL 90 MCG/ACT 8GM HFA INHALER INH PRN (18:00)
[2017-06-02] MEDS ORDERED: hydrOXYzine 10 MG TAB PO PRN (18:00)
[2017-06-02] MEDS ORDERED: ONDANSETRON 4MG/2ML VIAL (J2405) IV PRN (18:00)
[2017-06-02] MEDS ORDERED: ACETAMINOPHEN 650 MG SUPP PR PRN (18:00)
[2017-06-02] MEDS ORDERED: diphenhydrAMINE CREAM 30GM TOP PRN (19:00)
[2017-06-02] MEDS ORDERED: OXAZEPAM 10 MG CAP PO PRN (19:00)
--- NOTE | 2017-06-02 19:51 | REP ---
Portable chest x-ray: Single view. History: Chest pain. Comparison study: July 10, 2016. Findings: The lungs are well inflated and clear. The pleural angles are sharp. Heart size is normal. Pulmonary vasculature is not increased. Impression: No active disease. Signed by Alex Marie MD 06/03/2017 02:08 P
[2017-06-02] MEDS: D5W/0.45% SODIUM CHLORIDE 1,000 ML IV SCH (20:00)
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
[2017-06-02] MEDS: MORPHINE 2 MG/ML 1ML SYRINGE IV PRN (21:21)
[2017-06-02] MEDS ORDERED: PERCOCET 5MG/325MG TAB As Ordered ONE (21:34)
[2017-06-02] MEDS ORDERED: PERCOCET 5MG/325MG TAB PO ONE (21:45)
[2017-06-02] MEDS: BUDESONIDE 0.5 MG/2 ML INHALATION SUSPENSION INH SCH (21:49)
[2017-06-02 23:13] VITALS: BP 184/100
[2017-06-02] MEDS ORDERED: MULTIVITAMIN -ADULT INJECTION 10 ML, THIAMINE INJection 100 MG, FOLIC ACID 1 MG in NS 1... IV ONE (23:18)
[2017-06-02] MEDS: GABAPENTIN 400 MG CAP PO SCH (23:41)
[2017-06-02] MEDS: traZODone 100 MG TAB PO SCH (23:41)
[2017-06-02] MEDS: cloNIDine 0.1 MG TAB PO SCH (23:41)
[2017-06-03] MEDS: QUEtiapine FUMARATE 100 MG TAB PO SCH ×2 (00:03→20:00)
[2017-06-03 01:11] VITALS: BP 170/98
[2017-06-03] MEDS ORDERED: amLODIPine 5 MG TAB PO ONE (02:00)
[2017-06-03] MEDS: MORPHINE 4 MG/ML 1ML SYRINGE IV PRN ×3 (03:58→14:29)
[2017-06-03 03:59] VITALS: BP 156/80
[2017-06-03] MEDS: D5W/0.45% SODIUM CHLORIDE 1,000 ML IV SCH (05:00)
[2017-06-03 05:48] LABS: OSMOLALITY URINE 937 MOSM/KG (500-800)
[2017-06-03 06:00] VITALS: BP 165/80
[2017-06-03] MEDS: MORPHINE 2 MG/ML 1ML SYRINGE IV PRN ×2 (07:08→19:59)
[2017-06-03 07:17] LABS: BASO % 0.5 % (0.0-1.0); EOS # 0.1 10^3/uL (0.0-0.50); EOS % 1.9 % (0.0-3.0); IMMATURE GRANULOCYTE % 0.2 % (0-0); LYMPH # 1.6 10^3/uL (1.5-4.5); MEAN CORPUSCULAR HEMOGLOBIN 31.7 pg (27.0-33.0); MEAN CORPUSCULAR HGB CONC 33.4 g/dl (32.0-36.5); MEAN CORPUSCULAR VOLUME 94.9 fl (80.0-96.0); MONO # 0.8 10^3/uL (0.0-0.8); MONO % 14.2 % (0.0-5.0); NEUTROPHILS # 3.1 10^3/uL (1.8-7.7); NEUTROPHILS % 55.2 % (36.0-66.0); PLATELET COUNT, AUTOMATED 183 10^3/uL (150-450); WHITE BLOOD COUNT 5.7 10^3/uL (4.0-10.0)
[2017-06-03 07:41] LABS: ANION GAP 6 MEQ/L (8-16); BLOOD UREA NITROGEN 8 MG/DL (7-18); CALCIUM LEVEL 7.7 MG/DL (8.5-10.1); CARBON DIOXIDE LEVEL 26 MEQ/L (21-32); CHLORIDE LEVEL 104 MEQ/L (98-107); CREATININE FOR GFR 1.21 MG/DL (0.70-1.30); GLOMERULAR FILTRATION RATE > 60.0 (>56); GLUCOSE, FASTING 148 MG/DL (70-105); MAGNESIUM LEVEL 1.7 MG/DL (1.8-2.4); POTASSIUM SERUM 3.6 MEQ/L (3.5-5.1); SODIUM LEVEL 136 MEQ/L (136-145)
[2017-06-03] MEDS: BUDESONIDE 0.5 MG/2 ML INHALATION SUSPENSION INH SCH ×2 (07:46→19:45)
[2017-06-03] MEDS ORDERED: MAG SULF 1GM/100ML (MAG RUN) 1 GM in APPROPRIATE DILUENT 1 EA IV ONE (08:30)
[2017-06-03] MEDS ORDERED: POTASSIUM CHLORIDE 10 MEQ SR TABLET PO ONE (08:30)
[2017-06-03] MEDS ORDERED: CHLORTHALIDONE 12.5MG PER 1/2 TABLET PO ONE (08:30)
[2017-06-03] MEDS ORDERED: ENTER DRUG NAME HERE (PATIENT'S OWN MED) PO SCH (09:00)
[2017-06-03 09:07] LABS: RETICULOCYTE % 1.2 % (0.5-1.5)
--- NOTE | 2017-06-03 09:08 | ECGEPIP ---
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
[2017-06-03] MEDS: NS 1,000 ML IV SCH ×3 (09:46→22:05)
[2017-06-03] MEDS: buPROPion **XL** TABLET 150MG (WELLBUTRIN XL) PO SCH (09:47)
[2017-06-03] MEDS: PANTOPRAZOLE 40MG INJ (PROTONIX) (C9113) IV SCH (09:47)
[2017-06-03] MEDS: GABAPENTIN 400 MG CAP PO SCH ×3 (09:47→20:00)
[2017-06-03] MEDS: ENOXAPARIN 40 MG/0.4 ML SYRINGE (J1650) SC SCH (09:48)
[2017-06-03] MEDS: amLODIPine 5 MG TAB PO SCH (09:50)
[2017-06-03 14:00] VITALS: BP 147/88
--- NOTE | 2017-06-03 17:13 | IPNPDOC ---
Text Note Date of Service The patient was seen on 06/03/17. NOTE Subjective: Patient was seen and examined at the bedside. Feeling better, still admits to abdominal pain. Denies any fever or chills, nausea, vomiting, any diarrhea, constipation, any blood in the stool. Objective: Vitals (See below) General: middle aged black male was alert, awake, oriented 3, appears to be mild distress, lying comfortably in bed with head elevated 30 HEENT: NC, AT CVS: Regular rhythm, normal S1, S2, no murmur Lungs: CTAB Abdomen: Soft, moderate tender to palpation in the epigastric region. No peritoneal signs. Extremities: No edema, clubbing or cyanosis See labs below: Assessment and plan: Acute pancreatitis with history of recurrent pancreatitis - likely 2/2 alcohol, possibly 2/2 HIV medication - Clinically unchanged - CT abdomen / pelvis 06/02: evidence of pancreatitis, no stones notes in gallbladder - Lipase elevated; EtOH negative - Continue with aggresive IV fluid hydration and symptomatic control of pain and nausea - CLD and will advance as tolerated Alcohol abuse - Serax for withdraw symptoms HIV - per patient CD4 normal and viral load undetectable - Continue home med Asthma - c/w nebulizer GERD - PPI hypertensive urgency with hx of HTN - home meds - added one dose of chlorthalidone - started hydralazine PRN hold for SBP <= 150 DVT prophylaxis - c/w Lovenox Fluid, electrolytes, nutrition: Repeat potassium of 4, CLD Disposition: - c/w IVF, pain control, trend lipase waiting for able to better tolerate PO GME ATTESTATION My preceptor for this patient encounter was physically present in the building during the encounter and was fully available. As needed, all aspects of the patient interview, examination, medical decision making process, and medical care plan development were reviewed and approved by the preceptor. Preceptor is aware and concurs with the plan as stated in the body of this note and will attest to such by his/her cosignature. ATTENDING NOTE I, Della Briceno, have both independently examined this patient as well as reviewed the documentation. I have discussed in detail with the resident the findings and plan of treatment as documented in the residents documentation. I will continue to follow the patient and offer further guidance to the patients care as necessary during this hospital stay. VS,Erniebone, I+O VS, Fishbone, I+O Laboratory Tests 06/03/17 06:56 Red Blood Count 4.10 L, Mean Corpuscular Volume 94.9, Mean Corpuscular Hemoglobin 31.7, Mean Corpuscular Hemoglobin Concent 33.4, Red Cell Distribution Width 13.0, Neutrophils (%) (Auto) 55.2, Lymphocytes (%) (Auto) 28.0, Monocytes (%) (Auto) 14.2 H, Eosinophils (%) (Auto) 1.9, Basophils (%) ( Auto) 0.5, Neutrophils # (Auto) 3.1, Lymphocytes # (Auto) 1.6, Monocytes # (Auto ) 0.8, Eosinophils # (Auto) 0.1, Basophils # (Auto) 0.0, Calcium Level 7.7 #L Vital Signs Date Time Temp Pulse Resp B/P (MAP) Pulse Ox O2 Delivery O2 Flow Rate FiO2 06/03/17 14:29 22 06/03/17 14:00 99.9 84 147/88 (107) 97 Room Air I&O- Last 24 Hours up to 6 AM 06/04/17 06:00 Intake Total 240 ml Output Total 1000 ml Balance -[address] DO Jun 03, 2017 17:13 DELLA BRICENO MD Jun 03, 2017 18:44
[2017-06-03] MEDS: **hydrALAZINE** 10 MG TAB PO SCH ×2 (18:00→23:47)
[2017-06-03 19:50] VITALS: O2SAT 96
[2017-06-03 20:00] VITALS: BP 163/99
[2017-06-03] MEDS: cloNIDine 0.1 MG TAB PO SCH (20:00)
[2017-06-03] MEDS: traZODone 100 MG TAB PO SCH (20:00)
[2017-06-04] MEDS: MORPHINE 4 MG/ML 1ML SYRINGE IV PRN
[2017-06-04] MEDS: NS 1,000 ML IV SCH ×3 (04:45→17:49)
[2017-06-04] MEDS: **hydrALAZINE** 10 MG TAB PO SCH ×2 (05:58→12:00)
[2017-06-04 06:01] VITALS: BP 108/62
[2017-06-04 07:09] LABS: BASO % 0.5 % (0.0-1.0); EOS # 0.1 10^3/uL (0.0-0.50); EOS % 3.1 % (0.0-3.0); IMMATURE GRANULOCYTE % 0.3 % (0-0); LYMPH # 1.4 10^3/uL (1.5-4.5); LYMPH % 34.4 % (24.0-44.0); MEAN CORPUSCULAR HGB CONC 34.6 g/dl (32.0-36.5); MEAN CORPUSCULAR VOLUME 92.3 fl (80.0-96.0); MONO # 0.5 10^3/uL (0.0-0.8); MONO % 13.5 % (0.0-5.0); NEUTROPHILS # 1.9 10^3/uL (1.8-7.7); NEUTROPHILS % 48.2 % (36.0-66.0); PLATELET COUNT, AUTOMATED 166 10^3/uL (150-450); RED CELL DISTRIBUTION WIDTH 12.6 % (11.5-14.5); WHITE BLOOD COUNT 3.9 10^3/uL (4.0-10.0)
[2017-06-04] MEDS: BUDESONIDE 0.5 MG/2 ML INHALATION SUSPENSION INH SCH ×2 (07:26→20:50)
[2017-06-04 07:39] LABS: ANION GAP 5 MEQ/L (8-16); BLOOD UREA NITROGEN 4 MG/DL (7-18); CALCIUM LEVEL 7.7 MG/DL (8.5-10.1); CARBON DIOXIDE LEVEL 26 MEQ/L (21-32); CHLORIDE LEVEL 103 MEQ/L (98-107); CREATININE FOR GFR 1.06 MG/DL (0.70-1.30); GLOMERULAR FILTRATION RATE > 60.0 (>56); GLUCOSE, FASTING 121 MG/DL (70-105); MAGNESIUM LEVEL 1.7 MG/DL (1.8-2.4); POTASSIUM SERUM 3.6 MEQ/L (3.5-5.1); SODIUM LEVEL 134 MEQ/L (136-145)
[2017-06-04] MEDS ORDERED: MAG SULF 1GM/100ML (MAG RUN) 1 GM in APPROPRIATE DILUENT 1 EA IV ONE (07:45)
[2017-06-04] MEDS ORDERED: POTASSIUM CHLORIDE 10 MEQ SR TABLET PO ONE (08:45)
[2017-06-04] MEDS: MORPHINE 2 MG/ML 1ML SYRINGE IV PRN ×4 (08:56→21:51)
[2017-06-04] MEDS: ENOXAPARIN 40 MG/0.4 ML SYRINGE (J1650) SC SCH (08:57)
[2017-06-04] MEDS: PANTOPRAZOLE 40MG INJ (PROTONIX) (C9113) IV SCH (08:57)
[2017-06-04] MEDS: buPROPion **XL** TABLET 150MG (WELLBUTRIN XL) PO SCH (08:57)
[2017-06-04] MEDS: GABAPENTIN 400 MG CAP PO SCH ×3 (08:57→21:51)
[2017-06-04] MEDS: amLODIPine 5 MG TAB PO SCH (08:58)
[2017-06-04] MEDS ORDERED: CHLORTHALIDONE 12.5MG PER 1/2 TABLET PO SCH (09:00)
[2017-06-04 09:56] LABS: HEPATITIS B SURFACE ANTIBODY NEGATIVE (POSITIVE)
--- NOTE | 2017-06-04 11:53 | IPNPDOC ---
Text Note Date of Service The patient was seen on 06/04/17. NOTE Subjective: Patient is a 51 year old male with a PMHx of HIV, HTN, Asthma, Alcohol abuse with hepatitis, Bipolar disorder, and GERD who presented to the ER with complaints of abdominal pain and nausea. Was found to have an elevated lipase and imaging (via CT abdomen / pelvis) consistent with pancreatitis. Patient was seen and examined at the bedside. Feeling better still, denies abdominal pain at rest, tolerating clear liquid diet. Denies any fever or chills , nausea, vomiting, any diarrhea, constipation, any blood in the stool. Objective: Vitals (See below) General: middle aged black male was alert, awake, oriented 3, appears to be mild distress, lying comfortably in bed with head elevated 30 HEENT: NC, AT CVS: Regular rhythm, normal S1, S2, no murmur Lungs: CTAB Abdomen: Soft, moderate tender to palpation in the epigastric region. No peritoneal signs. Extremities: No edema, clubbing or cyanosis Assessment and plan: Acute pancreatitis with history of recurrent pancreatitis - likely 2/2 alcohol, less likely 2/2 HIV medication - Clinically improving - Physical with mild epigastric pain - Lipase elevated on admission, has now normalized; EtOH negative - CT abdomen / pelvis 06/02: evidence of pancreatitis, no stones notes in gallbladder - Continue with aggressive IV fluid hydration and symptomatic control of pain and nausea - Diet has been advanced to full liquid, and will advance to regular as tolerated Alcohol abuse - Serax for withdraw symptoms HIV - per patient CD4 normal and viral load undetectable - c/w Atripla Asthma - c/w nebulizer GERD - PPI s/p Hypertensive urgency - Uses Amlodipine 5 QD and Clonidine 0.1 QHS as an outpatient - Will stop Clonidine - c/w Amlodipine alone DVT prophylaxis - c/w Lovenox Fluid, electrolytes, nutrition: Repeat potassium of 4, CLD Disposition: - c/w IVF, pain control, trend lipase waiting for able to better tolerate PO GME ATTESTATION My preceptor for this patient encounter was physically present in the building during the encounter and was fully available. As needed, all aspects of the patient interview, examination, medical decision making process, and medical care plan development were reviewed and approved by the preceptor. Preceptor is aware and concurs with the plan as stated in the body of this note and will attest to such by his/her cosignature. ATTENDING NOTE I, Della Briceno, have both independently examined this patient as well as reviewed the documentation. I have discussed in detail with the resident the findings and plan of treatment as documented in the residents documentation. I will continue to follow the patient and offer further guidance to the patients care as necessary during this hospital stay. VS,Fishbone, I+O VS, Fishbone, I+O Laboratory Tests 06/04/17 06:59 Red Blood Count 3.66 L, Mean Corpuscular Volume 92.3, Mean Corpuscular Hemoglobin 32.0, Mean Corpuscular Hemoglobin Concent 34.6, Red Cell Distribution Width 12.6, Neutrophils (%) (Auto) 48.2, Lymphocytes (%) (Auto) 34.4, Monocytes (%) (Auto) 13.5 H, Eosinophils (%) (Auto) 3.1 H, Basophils (%) ( Auto) 0.5, Neutrophils # (Auto) 1.9, Lymphocytes # (Auto) 1.4 L, Monocytes # ( Auto) 0.5, Eosinophils # (Auto) 0.1, Basophils # (Auto) 0.0, Calcium Level 7.7 L Vital Signs Date Time Temp Pulse Resp B/P (MAP) Pulse Ox O2 Delivery O2 Flow Rate FiO2 06/04/17 08:58 82 108/62 06/04/17 08:56 18 Room Air 06/04/17 06:[address] DO Jun 04, 2017 11:52 DELLA BRICENO MD Jun 04, 2017 16:12
[2017-06-04 20:00] VITALS: BP 114/71
[2017-06-04] MEDS: QUEtiapine FUMARATE 100 MG TAB PO SCH (21:51)
[2017-06-04] MEDS: traZODone 100 MG TAB PO SCH (21:51)
[2017-06-04] MEDS: ACETAMINOPHEN TAB 650MG DOSE (2X325MG) PO PRN (23:04)
[2017-06-05] MEDS: MORPHINE 2 MG/ML 1ML SYRINGE IV PRN ×4 (02:36→21:14)
[2017-06-05] MEDS: NS 1,000 ML IV SCH ×4 (04:47→21:23)
[2017-06-05 05:32] LABS: BASO % 0.2 % (0.0-1.0); EOS # 0.1 10^3/uL (0.0-0.50); EOS % 1.3 % (0.0-3.0); LYMPH # 0.6 10^3/uL (1.5-4.5); LYMPH % 13.7 % (24.0-44.0); MEAN CORPUSCULAR HEMOGLOBIN 32.1 pg (27.0-33.0); MEAN CORPUSCULAR HGB CONC 34.3 g/dl (32.0-36.5); MEAN CORPUSCULAR VOLUME 93.6 fl (80.0-96.0); MONO # 0.4 10^3/uL (0.0-0.8); MONO % 9.5 % (0.0-5.0); NEUTROPHILS # 3.5 10^3/uL (1.8-7.7); NEUTROPHILS % 75.3 % (36.0-66.0); PLATELET COUNT, AUTOMATED 176 10^3/uL (150-450); WHITE BLOOD COUNT 4.6 10^3/uL (4.0-10.0)
[2017-06-05 06:00] VITALS: BP 121/71
[2017-06-05 06:05] LABS: ALBUMIN/GLOBULIN RATIO 0.67 (1.00-1.93); ALKALINE PHOSPHATASE 105 U/L (45-117); ALT/SGPT 28 U/L (12-78); ANION GAP 8 MEQ/L (8-16); AST/SGOT 17 U/L (7-37); BILIRUBIN,TOTAL 0.3 MG/DL (0.2-1.0); BLOOD UREA NITROGEN 7 MG/DL (7-18); CALCIUM LEVEL 8.8 MG/DL (8.5-10.1); CARBON DIOXIDE LEVEL 24 MEQ/L (21-32); CHLORIDE LEVEL 101 MEQ/L (98-107); CREATININE FOR GFR 1.13 MG/DL (0.70-1.30); GLOMERULAR FILTRATION RATE > 60.0 (>56); GLUCOSE, FASTING 135 MG/DL (70-105); MAGNESIUM LEVEL 2.1 MG/DL (1.8-2.4); POTASSIUM SERUM 4.3 MEQ/L (3.5-5.1); SODIUM LEVEL 133 MEQ/L (136-145); TOTAL PROTEIN 7.5 GM/DL (6.4-8.2)
[2017-06-05] MEDS: MORPHINE 4 MG/ML 1ML SYRINGE IV PRN ×3 (07:54→17:54)
[2017-06-05] MEDS: METOCLOPRAMIDE INJ 10MG/2ML VIAL (J2765) IV PRN ×2 (08:27→21:13)
[2017-06-05] MEDS ORDERED: PROCHLORPERAZINE 10 MG/2 ML VIAL (J0780) IV PRN (08:45)
[2017-06-05] MEDS ORDERED: PROCHLORPERAZINE 10 MG/2 ML VIAL (J0780) IM PRN (08:45)
[2017-06-05] MEDS ORDERED: GASTROGRAFIN SOLUTION 30ML PO ONE (09:00)
[2017-06-05] MEDS ORDERED: GASTROGRAFIN SOLUTION 30ML (Q9963) PO ONE (09:30)
--- NOTE | 2017-06-05 09:49 | REP ---
Clinical: Abdominal pain with history of pancreatitis. Technique: Upright view of the chest with supine and upright views of the abdomen and pelvis. Findings: Upright view of the chest demonstrates mild basilar atelectasis. No free air below diaphragm to suspect pneumoperitoneum. Supine and upright views of the abdomen and pelvis demonstrate bowel gas pattern consistent with small bowel obstruction. No organomegaly. No abnormal calcifications. Skeletal structures are intact. Impression: Findings compatible with small bowel obstruction. No evidence for pneumoperitoneum. Trace basilar atelectasis. Signed by Jose Arguello MD 06/05/2017 09:47 A
[2017-06-05] MEDS: ENOXAPARIN 40 MG/0.4 ML SYRINGE (J1650) SC SCH (10:57)
[2017-06-05] MEDS: PANTOPRAZOLE 40MG INJ (PROTONIX) (C9113) IV SCH (10:57)
[2017-06-05] MEDS: amLODIPine 5 MG TAB PO SCH (11:26)
[2017-06-05] MEDS: GABAPENTIN 400 MG CAP PO SCH ×3 (11:26→21:14)
[2017-06-05] MEDS: buPROPion **XL** TABLET 150MG (WELLBUTRIN XL) PO SCH (11:26)
[2017-06-05] MEDS: BUDESONIDE 0.5 MG/2 ML INHALATION SUSPENSION INH SCH ×2 (11:28→19:51)
[2017-06-05] MEDS ORDERED: ISOVUE-370 76% 100ML VIAL (Q9967) As Ordered ONE (13:17)
--- NOTE | 2017-06-05 13:51 | REP ---
CT of the abdomen and pelvis with IV and bowel contrast: Comparison is 2016. There are small bilateral pleural effusions. There is atelectasis in the lower lung steiner adjacent to the pleural effusions. These are changes from the comparison study. On the prior study. There were inflammatory changes in the peripancreatic mesenteric fat adjacent to the body and tail of the pancreas but not the head of the pancreas compatible with acute pancreatitis. There was no pseudocyst. Additionally, there are chronic calcifications in the uncinate process of the pancreas compatible with prior pancreatitis. On the study today the head, body and tail of the pancreas demonstrate normal enhancement with IV contrast. There is no evidence of pancreatic necrosis. The calcifications are again identified in the pancreatic uncinate process as previously. The peripancreatic inflammation appears to have decreased. There is no pseudocyst. No ascites. However, the small bowel is diffusely distended mostly with fluid but some loops are distended with fluid and and they are not contain air fluid levels. This could represent ileus or small bowel obstruction. There is a nasogastric tube with the tip terminating in the gastric fundus. There is no ascites. There is no pneumoperitoneum. The hepatic parenchyma, gallbladder, spleen, adrenals, kidneys, abdominal aorta are unremarkable. Pelvis: The bladder is unremarkable. There is a trace of ascites. There is no adenopathy. Impression: There is no evidence of pancreatic necrosis. The peripancreatic inflammatory changes have decreased from the prior study. There is no pseudocyst. There are small bilateral pleural effusions and there are small infiltrates in the lower lobes of the lungs bilaterally. These are changes from the prior study. There is a nasogastric tube terminating in the gastric fundus. The small bowel is diffusely dilated. This could represent ileus or small bowel obstruction. There are multiple air-fluid levels. There is a trace of ascites in the pelvis. Signed by Blaise Coronado MD 06/05/2017 01:43 P
[2017-06-05 14:00] VITALS: BP 130/81
[2017-06-05] MEDS: ACETAMINOPHEN TAB 650MG DOSE (2X325MG) PO PRN (14:25)
--- NOTE | 2017-06-05 17:42 | IPNPDOC ---
Text Note Date of Service The patient was seen on 06/05/17. NOTE Subjective: Patient is a 51 year old male with a PMHx of HIV, HTN, Asthma, Alcohol abuse with hepatitis, Bipolar disorder, and GERD who presented to the ER with complaints of abdominal pain and nausea. Was found to have an elevated lipase and imaging (via CT abdomen / pelvis) consistent with pancreatitis. Patient was seen and examined at the bedside. Had abdominal pain with nausea, vomiting last night x 2, none bilious, non bloody. Denies any fever or chills, any diarrhea, constipation, any blood in the stool. Last BM was yesterday and normal per patient. Objective: Vitals (See below) General: middle aged black male was alert, awake, oriented 3, appears to be moderate distress, lying in bed with head elevated 30 HEENT: NC, AT CVS: Regular rhythm, normal S1, S2, no murmur Lungs: CTAB Abdomen: Soft, moderately distended. No peritoneal signs. No ecchymosis Extremities: No edema, clubbing or cyanosis Assessment and plan: Abdominal pain with distension and nausea, vomiting - KUB and CT of abdomen and pelvis with PO contrast only showed SBO/Ileus - General Surgery Dr. Olson was consulted, will follow his recommendation - NPO - Decompression with NT - Control with morning Acute pancreatitis with history of recurrent pancreatitis - likely 2/2 alcohol, less likely 2/2 HIV medication - Physical with mild epigastric pain - Lipase elevated on admission, has now normalized; EtOH negative - CT abdomen / pelvis 06/02: evidence of pancreatitis, no stones notes in gallbladder - Continue with IV fluid hydration and symptomatic control of pain and nausea Alcohol abuse - Serax for withdraw symptoms HIV - per patient CD4 normal and viral load undetectable - c/w Atripla Asthma - c/w nebulizer GERD - PPI s/p Hypertensive urgency - Uses Amlodipine 5 QD and Clonidine 0.1 QHS as an outpatient - Will stop Clonidine - c/w Amlodipine alone DVT prophylaxis - c/w Lovenox Fluid, electrolytes, nutrition: Repeat potassium of 4, NPO Disposition: - c/w IVF, pain control, NPO, follow Dr. Olson, general surgery recommendation. GME ATTESTATION My preceptor for this patient encounter was physically present in the building during the encounter and was fully available. As needed, all aspects of the patient interview, examination, medical decision making process, and medical care plan development were reviewed and approved by the preceptor. Preceptor is aware and concurs with the plan as stated in the body of this note and will attest to such by his/her cosignature. VS,Fishbone, I+O VS, Fishbone, I+O Laboratory Tests 06/05/17 05:11 Red Blood Count 4.52, Mean Corpuscular Volume 93.6, Mean Corpuscular Hemoglobin 32.1, Mean Corpuscular Hemoglobin Concent 34.3, Red Cell Distribution Width 13.0 , Neutrophils (%) (Auto) 75.3 H, Lymphocytes (%) (Auto) 13.7 L, Monocytes (%) ( Auto) 9.5 H, Eosinophils (%) (Auto) 1.3, Basophils (%) (Auto) 0.2, Neutrophils # (Auto) 3.5, Lymphocytes # (Auto) 0.6 L, Monocytes # (Auto) 0.4, Eosinophils # (Auto) 0.1, Basophils # (Auto) 0.0, Calcium Level 8.8, Aspartate Amino Transf ( AST/SGOT) 17, Alanine Aminotransferase (ALT/SGPT) 28, Alkaline Phosphatase 105, Total Bilirubin 0.3, Total Protein 7.5, Albumin 3.0 #L Vital Signs Date Time Temp Pulse Resp B/P (MAP) Pulse Ox O2 Delivery O2 Flow Rate FiO2 06/05/17 17:24 97.6 06/05/17 14:00 115 18 130/81 (97) 96 Room Air I&O- Last 24 Hours up to 6 AM 06/06/17 06:00 Intake Total 0 ml Output Total 350 ml Balance -[address] DO Jun 05, 2017 17:41
[2017-06-05] MEDS: traZODone 100 MG TAB PO SCH (21:14)
[2017-06-05] MEDS: QUEtiapine FUMARATE 100 MG TAB PO SCH (21:14)
[2017-06-05] MEDS: KETOROLAC 30 MG/ML VIAL (J1885) IV SCH (21:17)
--- NOTE | 2017-06-05 21:30 | CR ---
DATE OF CONSULTATION: 06/05/2017 REASON FOR CONSULTATION: Ileus versus intestinal obstruction. HISTORY OF PRESENT ILLNESS: The patient is a pleasant 51-year-old man who was admitted on 06/02/2017, with a history of abdominal pain and some nausea. He was diagnosed with pancreatitis based on a prior history of pancreatitis and a lipase of 937. A CT scan at the time of admission showed some calcifications within the pancreas consistent with prior pancreatitis. He was also noted to have some inflammatory changes in the gi pancreatic fat. He was treated with supportive care including pain medication with intravenous morphine. He apparently was doing well with a fall in his lipase to 104 by the morning of 06/05/2017. However, he developed some abdominal distension with some nausea. A nasogastric tube was inserted on the morning of 06/05/2017. A repeat CT scan showed some fluid and air-filled loops of small bowel and the radiologist felt this would be consistent with a small bowel obstruction versus an ileus. I was asked to evaluate the patient. MEDICATIONS: Current medications include morphine on a as needed basis for pain, as needed albuterol inhaler, Norvasc 5 mg daily, bupropion XL 150 mg by mouth daily, gabapentin 400 mg by mouth twice a day, Atarax 10 mg by mouth twice a day as needed, Seroquel 300 mg by mouth nightly, Desyrel 200 mg by mouth nightly, Tylenol as needed for pain or fever, Protonix 40 mg IV daily, Zofran 4 mg IV every 6 hours as needed for nausea or vomiting, Reglan 10 mg IV every 6 hours as needed for nausea or vomiting, Lovenox 40 mg subcutaneous daily, Pulmicort 0.5 mg inhaled twice a day, Benadryl cream to a rash of the left lower extremity, Serax 20 mg by mouth every 6 hours as needed for agitation, Compazine 10 mg IV every 6 hours as needed for vomiting, Atripla 600-200-300 mg which is the patient's home medication. ALLERGIES: The patient denies any known drug allergies but reports an allergy to bananas. SURGICAL HISTORY: The patient has had no abdominal surgery. He has had surgery on his right knee. MEDICAL HISTORY: Significant for HIV positivity, hypertension, asthma, COPD, gastroesophageal reflux, alcohol abuse, history of alcoholic hepatitis and chronic hepatitis, and bipolar disorder with borderline personality disorder. SOCIAL HISTORY: The patient denies any tobacco use. He drinks several times per week, though this is decreased by his report from his prior habits. FAMILY HISTORY: Unremarkable. REVIEW OF SYSTEMS: Reveals no history of cardiac pain or arrhythmia. He denies any history of DVT or pulmonary embolus. He has not had any recent weight loss or significant weight gain. He has had no fevers or chills. He has had some pain in the epigastrium and has had a prior history of pancreatitis. He denies any voiding issues. He is not having any bone or joint problems. Remainder of the review of systems is unremarkable. PHYSICAL EXAMINATION: Reveals a pleasant middle-aged man lying quietly on the hospital bed. When I first entered, he was looking fairly comfortable but as the history and exam progressed, he clutched his abdomen and would have to stand up on several occasions complaining of what seemed to be crampy abdominal pains. Vital signs show his most recent temperature was 97.6 with a most recent pulse of 115 and blood pressure of 130/81. His skin is warm and dry. Mucous membranes appear moist. Neck is supple. He has a nasogastric tube in place in the nares which has a minimal amount of light greenish fluid within the tubing. Heart exam shows a regular rhythm. He does not seem to be tachycardiac. The lungs are clear. The abdomen is somewhat distended and firm. He does have a few bowel sounds to auscultation. There are no evident scars and no sign of an umbilical or inguinal hernia. Extremities show no peripheral edema. Laboratory studies from earlier in the day show white count of 4.6 with a hemoglobin of 14, hematocrit 42 and platelet count of 176,000. Differential count showed 75% neutrophils and 14% lymphocytes. Chemistry profile showed a sodium of 133 with otherwise normal electrolytes. BUN was 7 with a creatinine of 1.1 and the glucose was 135. Liver function tests are normal with a lipase of 104. His CT scan done early on 06/05/2017 I reviewed independently and I also reviewed his imaging from 06/02/2017. [employer] judge image of the CT scan shows a few mildly dilated air-filled loops of small bowel but also an air-filled transverse colon with some air in the stomach. Review of the images shows small bilateral pleural effusions with a little atelectasis particularly on the left. The NG tube is in place in the stomach. He has some air and fluid-filled loops of small bowel, particularly in the upper abdomen. I note that his cecum is actually full of fluid as well and this extends up into the ascending colon. There is a large amount of air going across the transverse colon and there is a relatively empty left-sided colon. There is a minimal amount of free fluid in the pelvis but there is no sign of hernia and no sign of free air. He does have calcifications noted in the pancreas. IMPRESSION: 1. Ileus secondary to pancreatitis and morphine. 2. Other medical issues as previously noted. RECOMMENDATIONS: I advised the patient that I do not believe he has a true mechanical obstruction. I suspect that this is a functional problem related to use of morphine for his pain and to the pancreatitis. I advised him that it would be beneficial to try to decrease as much as possible his use of morphine. I have taken the liberty of ordering some Toradol to see if this would be of benefit in allowing him to reduce his need for morphine. Depending on his past experiences with narcotics, this may or may not be of benefit. I would continue his nasogastric tube for now. He should be encouraged to be up and about as much as possible. Hopefully his ileus will resolve within the next day or two such that we could remove his NG tube and advance his diet and send him home. I will check in on the patient again on 06/06/2017.
[2017-06-05 22:00] VITALS: BP 136/80
[2017-06-06] MEDS: NS 1,000 ML IV SCH ×4 (02:23→17:24)
[2017-06-06] MEDS: MORPHINE 4 MG/ML 1ML SYRINGE IV PRN ×2 (03:02→11:51)
[2017-06-06] MEDS: KETOROLAC 30 MG/ML VIAL (J1885) IV SCH ×2 (03:02→09:06)
[2017-06-06 06:00] VITALS: BP 120/73
[2017-06-06 06:49] LABS: MEAN CORPUSCULAR HEMOGLOBIN 31.5 pg (27.0-33.0); MEAN CORPUSCULAR HGB CONC 32.8 g/dl (32.0-36.5); PLATELET COUNT, AUTOMATED 212 10^3/uL (150-450); RED CELL DISTRIBUTION WIDTH 12.9 % (11.5-14.5); WHITE BLOOD COUNT 4.4 10^3/uL (4.0-10.0)
[2017-06-06 06:50] LABS: ADD MANUAL DIFFER YES; DIFF SLIDE NUMBER 19; LEFT SHIFT POS FLAG; POSITIVE MORPH POS FLAG
[2017-06-06 07:08] LABS: ALBUMIN 2.8 GM/DL (3.2-5.2); ALBUMIN/GLOBULIN RATIO 0.62 (1.00-1.93); ALKALINE PHOSPHATASE 105 U/L (45-117); ALT/SGPT 23 U/L (12-78); ANION GAP 8 MEQ/L (8-16); AST/SGOT 11 U/L (7-37); BILIRUBIN,TOTAL 0.4 MG/DL (0.2-1.0); BLOOD UREA NITROGEN 12 MG/DL (7-18); CALCIUM LEVEL 8.3 MG/DL (8.5-10.1); CARBON DIOXIDE LEVEL 25 MEQ/L (21-32); CHLORIDE LEVEL 105 MEQ/L (98-107); CREATININE FOR GFR 1.43 MG/DL (0.70-1.30); GLOMERULAR FILTRATION RATE > 60.0 (>56); GLUCOSE, FASTING 85 MG/DL (70-105); MAGNESIUM LEVEL 1.8 MG/DL (1.8-2.4); POTASSIUM SERUM 3.8 MEQ/L (3.5-5.1); SODIUM LEVEL 138 MEQ/L (136-145); TOTAL PROTEIN 7.3 GM/DL (6.4-8.2)
[2017-06-06 07:09] LABS: BANDS 7 % (< 11); EOSINOPHILS 2 % (0-5)
[2017-06-06] MEDS: BUDESONIDE 0.5 MG/2 ML INHALATION SUSPENSION INH SCH ×2 (07:47→19:37)
[2017-06-06] MEDS: amLODIPine 5 MG TAB PO SCH (09:05)
[2017-06-06] MEDS: GABAPENTIN 400 MG CAP PO SCH ×3 (09:06→20:47)
[2017-06-06] MEDS: ENOXAPARIN 40 MG/0.4 ML SYRINGE (J1650) SC SCH (09:06)
[2017-06-06] MEDS: PANTOPRAZOLE 40MG INJ (PROTONIX) (C9113) IV SCH (09:06)
[2017-06-06] MEDS: buPROPion **XL** TABLET 150MG (WELLBUTRIN XL) PO SCH (09:16)
--- NOTE | 2017-06-06 11:42 | IPNPDOC ---
Text Note Date of Service The patient was seen on 06/06/17. NOTE Subjective: Patient is a 51 year old male with a PMHx of HIV, HTN, Asthma, Alcohol abuse with hepatitis, Bipolar disorder, and GERD who presented to the ER with complaints of abdominal pain and nausea. Was found to have an elevated lipase and imaging (via CT abdomen / pelvis) consistent with pancreatitis. Patient was seen and examined at the bedside. Patient is feeling better, still has NGT. Less abdominal pain, has not vomiting, had BM yesterday. No flatus this am however. Denies any fever or chills, any blood in the stool. Objective: Vitals (See below) General: middle aged black male was alert, awake, oriented 3, NAD, lying in bed with head elevated 30 HEENT: NC, AT CVS: Regular rhythm, normal S1, S2, no murmur Lungs: CTAB Abdomen: Soft, slightly distended. No peritoneal signs. No ecchymosis Extremities: No edema, clubbing or cyanosis Assessment and plan: Abdominal pain with distension and nausea, vomiting likely 2/2 Ileus 2/2 morphine, possibly 2/2 SBO - Noted improvement in symptoms this morning - Physical with bowel sounds present - KUB and CT of abdomen and pelvis with PO contrast only showed SBO/Ileus - General Surgery Dr. Olson was consulted, recommended to hold morphine and give patient Toradol - c/w NPO and NGT for decompression - Started Simethicone - Will switch Toradol to Tramadol (re: elevated Cr) Acute pancreatitis with history of recurrent pancreatitis - likely 2/2 alcohol, less likely 2/2 HIV medication - Physical with mild epigastric pain - Lipase elevated on admission, has now normalized; EtOH negative - CT abdomen / pelvis 06/02: evidence of pancreatitis, no stones notes in gallbladder - Continue with IV fluid hydration and symptomatic control of pain and nausea KYLE 2/2 prerenal etiology - likely nausea / vomiting, possibly intra-renal etiology 2/2 toradol - Will switch Toradol to tramadol - c/w aggressive IVF Alcohol abuse - Serax for withdraw symptoms HIV - per patient CD4 normal and viral load undetectable - c/w Atripla Asthma - c/w nebulizer GERD - PPI s/p Hypertensive urgency - Uses Amlodipine 5 QD and Clonidine 0.1 QHS as an outpatient - c/w Amlodipine alone DVT prophylaxis - c/w Lovenox Fluid, electrolytes, nutrition: Repeat potassium of 4, NPO Disposition: - c/w IVF, pain control, NPO, follow Dr. Olson, general surgery recommendation. GME ATTESTATION My preceptor for this patient encounter was physically present in the building during the encounter and was fully available. As needed, all aspects of the patient interview, examination, medical decision making process, and medical care plan development were reviewed and approved by the preceptor. Preceptor is aware and concurs with the plan as stated in the body of this note and will attest to such by his/her cosignature. ATTENDING NOTE I, Della Briceno, have both independently examined this patient as well as reviewed the documentation. I have discussed in detail with the resident the findings and plan of treatment as documented in the residents documentation. I will continue to follow the patient and offer further guidance to the patients care as necessary during this hospital stay. VS,Fishbone, I+O VS, Fishbone, I+O Laboratory Tests 06/06/17 06:23 Red Blood Count 4.00 L, Mean Corpuscular Volume 96.0, Mean Corpuscular Hemoglobin 31.5, Mean Corpuscular Hemoglobin Concent 32.8, Red Cell Distribution Width 12.9, Calcium Level 8.3 L, Aspartate Amino Transf (AST/SGOT) 11, Alanine Aminotransferase (ALT/SGPT) 23, Alkaline Phosphatase 105, Total Bilirubin 0.4, Total Protein 7.3, Albumin 2.8 L Vital Signs Date Time Temp Pulse Resp B/P (MAP) Pulse Ox O2 Delivery O2 Flow Rate FiO2 06/06/17 09:05 82 118/70 06/06/17 06:00 97.[address] DO Jun 06, 2017 11:42 DELLA BRICENO MD Jun 06, 2017 12:51
[2017-06-06 14:00] VITALS: BP 143/77
[2017-06-06 16:29] LABS: ANION GAP 7 MEQ/L (8-16); BLOOD UREA NITROGEN 13 MG/DL (7-18); CALCIUM LEVEL 8.1 MG/DL (8.5-10.1); CARBON DIOXIDE LEVEL 22 MEQ/L (21-32); CHLORIDE LEVEL 109 MEQ/L (98-107); CREATININE FOR GFR 1.13 MG/DL (0.70-1.30); GLOMERULAR FILTRATION RATE > 60.0 (>56); GLUCOSE, FASTING 80 MG/DL (70-105); POTASSIUM SERUM 4.1 MEQ/L (3.5-5.1); SODIUM LEVEL 138 MEQ/L (136-145)
[2017-06-06] MEDS: SIMETHICONE 80 MG CHEW TAB PO SCH ×2 (17:24→20:46)
[2017-06-06] MEDS: D5W/0.45% SODIUM CHLORIDE 1,000 ML IV SCH (19:30)
[2017-06-06] MEDS: QUEtiapine FUMARATE 100 MG TAB PO SCH (20:47)
[2017-06-06] MEDS: traZODone 100 MG TAB PO SCH (20:47)
[2017-06-06] MEDS: traMADol 50 MG TAB PO PRN (21:55)
[2017-06-06 22:00] VITALS: BP 163/79
[2017-06-07] MEDS: traMADol 50 MG TAB PO PRN ×2 (04:23→16:30)
[2017-06-07 06:00] VITALS: BP 139/77
[2017-06-07 06:16] LABS: MEAN CORPUSCULAR HEMOGLOBIN 31.8 pg (27.0-33.0); MEAN CORPUSCULAR VOLUME 93.5 fl (80.0-96.0); PLATELET COUNT, AUTOMATED 201 10^3/uL (150-450); RED CELL DISTRIBUTION WIDTH 12.9 % (11.5-14.5); WHITE BLOOD COUNT 5.1 10^3/uL (4.0-10.0)
[2017-06-07 06:24] LABS: POSITIVE MORPH POS FLAG
[2017-06-07 06:25] LABS: ADD MANUAL DIFFER YES; DIFF SLIDE NUMBER 11; LEFT SHIFT POS FLAG
[2017-06-07 06:35] LABS: ALBUMIN 2.3 GM/DL (3.2-5.2); ALBUMIN/GLOBULIN RATIO 0.61 (1.00-1.93); ALKALINE PHOSPHATASE 81 U/L (45-117); ALT/SGPT 15 U/L (12-78); ANION GAP 7 MEQ/L (8-16); AST/SGOT 8 U/L (7-37); BILIRUBIN,TOTAL 0.3 MG/DL (0.2-1.0); BLOOD UREA NITROGEN 9 MG/DL (7-18); CARBON DIOXIDE LEVEL 23 MEQ/L (21-32); CHLORIDE LEVEL 108 MEQ/L (98-107); CREATININE FOR GFR 0.97 MG/DL (0.70-1.30); GLOMERULAR FILTRATION RATE > 60.0 (>56); GLUCOSE, FASTING 111 MG/DL (70-105); MAGNESIUM LEVEL 1.8 MG/DL (1.8-2.4); POTASSIUM SERUM 3.7 MEQ/L (3.5-5.1); SODIUM LEVEL 138 MEQ/L (136-145); TOTAL PROTEIN 6.1 GM/DL (6.4-8.2)
[2017-06-07 06:45] LABS: BASOPHILS 2 % (0-4); EOSINOPHILS 2 % (0-5)
[2017-06-07 06:48] LABS: DOHLE BODIES 1+
[2017-06-07] MEDS: BUDESONIDE 0.5 MG/2 ML INHALATION SUSPENSION INH SCH ×2 (07:25→20:45)
[2017-06-07] MEDS: D5W/0.45% SODIUM CHLORIDE 1,000 ML IV SCH (07:30)
[2017-06-07] MEDS: PANTOPRAZOLE 40MG INJ (PROTONIX) (C9113) IV SCH (08:28)
[2017-06-07] MEDS: SIMETHICONE 80 MG CHEW TAB PO SCH ×3 (08:29→22:17)
[2017-06-07] MEDS: ENOXAPARIN 40 MG/0.4 ML SYRINGE (J1650) SC SCH (08:29)
[2017-06-07] MEDS: amLODIPine 5 MG TAB PO SCH (08:29)
[2017-06-07] MEDS: GABAPENTIN 400 MG CAP PO SCH ×3 (08:29→22:17)
[2017-06-07] MEDS: buPROPion **XL** TABLET 150MG (WELLBUTRIN XL) PO SCH (08:42)
--- NOTE | 2017-06-07 11:16 | IPNPDOC ---
Text Note Date of Service The patient was seen on 06/07/17. NOTE Subjective: Patient is a 51 year old male with a PMHx of HIV, HTN, Asthma, Alcohol abuse with hepatitis, Bipolar disorder, and GERD who presented to the ER with complaints of abdominal pain and nausea. Was found to have an elevated lipase and imaging (via CT abdomen / pelvis) consistent with pancreatitis. Patient was seen and examined at the bedside. Patient has had his NG tube removed yesterday evening. He denies any nausea or vomiting. Has complained of mild lower abdominal pain. Has had bowel movements yesterday and again this morning. Will advance his diet today; discussed with surgery. Objective: Vitals (See below) General: middle aged black male was alert, awake, oriented 3, NAD HEENT: NC, AT CVS: Regular rhythm, normal S1, S2, no murmur Lungs: Clear to auscultation, no w/r/r Abdomen: Soft, ND, Mild tenderness at suprapubic region, Hypoactive BS Extremities: No edema, clubbing or cyanosis Assessment and plan: Abdominal pain, nausea & vomiting - likely 2/2 Ileus 2/2 morphine, possibly 2/2 SBO - Noted improvement in symptoms this morning - Physical with bowel sounds present - KUB and CT of abdomen and pelvis with PO contrast only showed SBO/Ileus - s/p NG tube - c/w Tramadol and Simethicone - Will advance diet to clear liquids today and advance as tolerated - General Surgery Dr. Olson / Dr. Mendez was consulted Acute pancreatitis with history of recurrent pancreatitis - likely 2/2 alcohol, less likely 2/2 HIV medication - s/p Epigastric pain - Lipase elevated on admission, has now normalized; EtOH negative - CT abdomen / pelvis 06/02: evidence of pancreatitis, no stones notes in gallbladder - CT abdomen / pelvis 06/06: no evidence of pancreas necrosis, inflammatory changes decreased, no pseudocyst, b/l pleural effusions, infiltrates?, NG tube present, SB dilated, ileus vs. SBO, trace ascites - s/p IV fluid hydration and symptomatic control of pain and nausea s/p KYLE 2/2 prerenal etiology - likely nausea / vomiting, possibly intra-renal etiology 2/2 toradol / CT IV contrast - s/p Toradol - s/p aggressive IVF Alcohol abuse - Serax for withdraw symptoms HIV - per patient CD4 normal and viral load undetectable - c/w Atripla Asthma - c/w nebulizer GERD - PPI s/p Hypertensive urgency - Uses Amlodipine 5 QD and Clonidine 0.1 QHS as an outpatient - c/w Amlodipine alone DVT prophylaxis - c/w Lovenox Disposition: - Advance diet as tolerated - Pain control as required VS,Fishbone, I+O VS, Fishbone, I+O Laboratory Tests 06/06/17 15:56 Calcium Level 8.1 L 06/07/17 06:07 Calcium Level 8.0 L, Red Blood Count 3.24 L, Mean Corpuscular Volume 93.5, Mean Corpuscular Hemoglobin 31.8, Mean Corpuscular Hemoglobin Concent 34.0, Red Cell Distribution Width 12.9, Aspartate Amino Transf (AST/SGOT) 8, Alanine Aminotransferase (ALT/SGPT) 15, Alkaline Phosphatase 81, Total Bilirubin 0.3, Total Protein 6.1 L, Albumin 2.3 L Vital Signs Date Time Temp Pulse Resp B/P (MAP) Pulse Ox O2 Delivery O2 Flow Rate FiO2 06/07/17 08:29 84 139/77 06/07/17 06:00 97.7 18 95 Room Air YUDITH BRICENO MD Jun 07, 2017 11:16
[2017-06-07 14:00] VITALS: BP 170/83
[2017-06-07 22:00] VITALS: BP 158/90
[2017-06-07] MEDS: traZODone 100 MG TAB PO SCH (22:17)
[2017-06-07] MEDS: QUEtiapine FUMARATE 100 MG TAB PO SCH (22:17)
[2017-06-07] MEDS: ACETAMINOPHEN TAB 650MG DOSE (2X325MG) PO PRN (22:17)
[2017-06-08 06:00] VITALS: BP 160/88
[2017-06-08] MEDS: ACETAMINOPHEN TAB 650MG DOSE (2X325MG) PO PRN (06:11)
[2017-06-08 06:18] LABS: ALBUMIN 2.5 GM/DL (3.2-5.2); ALBUMIN/GLOBULIN RATIO 0.56 (1.00-1.93); ALKALINE PHOSPHATASE 91 U/L (45-117); ALT/SGPT 18 U/L (12-78); ANION GAP 7 MEQ/L (8-16); AST/SGOT 15 U/L (7-37); BILIRUBIN,TOTAL 0.3 MG/DL (0.2-1.0); BLOOD UREA NITROGEN 5 MG/DL (7-18); CALCIUM LEVEL 8.2 MG/DL (8.5-10.1); CARBON DIOXIDE LEVEL 25 MEQ/L (21-32); CHLORIDE LEVEL 104 MEQ/L (98-107); CREATININE FOR GFR 1.06 MG/DL (0.70-1.30); GLOMERULAR FILTRATION RATE > 60.0 (>56); GLUCOSE, FASTING 107 MG/DL (70-105); POTASSIUM SERUM 3.1 MEQ/L (3.5-5.1); SODIUM LEVEL 136 MEQ/L (136-145)
[2017-06-08] MEDS: BUDESONIDE 0.5 MG/2 ML INHALATION SUSPENSION INH SCH ×2 (07:19→19:44)
[2017-06-08] MEDS ORDERED: POTASSIUM CHLORIDE 10 MEQ SR TABLET PO ONE (07:30)
[2017-06-08] MEDS ORDERED: AMOXICILLIN 500 MG CAP PO SCH (09:00)
[2017-06-08] MEDS: PANTOPRAZOLE 40MG INJ (PROTONIX) (C9113) IV SCH (10:00)
[2017-06-08] MEDS: ENOXAPARIN 40 MG/0.4 ML SYRINGE (J1650) SC SCH (10:00)
[2017-06-08] MEDS: SIMETHICONE 80 MG CHEW TAB PO SCH ×3 (10:01→22:28)
[2017-06-08] MEDS: buPROPion **XL** TABLET 150MG (WELLBUTRIN XL) PO SCH (10:01)
[2017-06-08] MEDS: GABAPENTIN 400 MG CAP PO SCH ×3 (10:01→22:28)
[2017-06-08] MEDS: amLODIPine 5 MG TAB PO SCH (10:01)
[2017-06-08] MEDS ORDERED: MAGIC MOUTHWASH SUSPENSION BTL SS PRN (11:45)
--- NOTE | 2017-06-08 11:45 | IPNPDOC ---
Text Note Date of Service The patient was seen on 06/08/17. NOTE Subjective: Patient is a 51 year old male with a PMHx of HIV, HTN, Asthma, Alcohol abuse with hepatitis, Bipolar disorder, and GERD who presented to the ER with complaints of abdominal pain and nausea. Was found to have an elevated lipase and imaging (via CT abdomen / pelvis) consistent with pancreatitis. Patient was seen and examined at the bedside. Fever last night and this am. Patient is feeling better. No longer feels nauseous and admits to mild lower abdominal pain. Admits to chill. Denies chest pain, sob, blood in urine or stool. Admits to loose stool yesterday. Denies any problems with urination. Denies any other current new complaints. Objective: Vitals (See below) General: middle aged black male was alert, awake, oriented 3, NAD HEENT: NC, AT CVS: Regular rhythm, normal S1, S2, no murmur Lungs: Clear to auscultation, no w/r/r Abdomen: Soft, ND, Mild tenderness at suprapubic region, positive BS Extremities: No edema, clubbing or cyanosis Assessment and plan: Abdominal pain, nausea & vomiting - likely 2/2 Ileus 2/2 morphine, possibly 2/2 SBO - Noted improvement in symptoms this morning - Physical with bowel sounds present - KUB and CT of abdomen and pelvis with PO contrast only showed SBO/Ileus - s/p NG tube - c/w Tramadol and Simethicone - Diet advanced to low fat per surgery - General Surgery Dr. Olson / Dr. Mendez was consulted Fever of unknown etiology last night and this am - r/o atelectasis with CXR, pending - UA negative - Started magic mouth wash due to bad teeth - R/O sources of infection Acute pancreatitis with history of recurrent pancreatitis - likely 2/2 alcohol, less likely 2/2 HIV medication - s/p Epigastric pain - Lipase elevated on admission, has now normalized; EtOH negative - CT abdomen / pelvis 06/02: evidence of pancreatitis, no stones notes in gallbladder - CT abdomen / pelvis 06/06: no evidence of pancreas necrosis, inflammatory changes decreased, no pseudocyst, b/l pleural effusions, infiltrates?, NG tube present, SB dilated, ileus vs. SBO, trace ascites - s/p IV fluid hydration and symptomatic control of pain and nausea s/p KYLE 2/2 prerenal etiology - likely nausea / vomiting, possibly intra-renal etiology 2/2 toradol / CT IV contrast - s/p Toradol - s/p aggressive IVF Alcohol abuse - Serax for withdraw symptoms HIV - per patient CD4 normal and viral load undetectable - c/w Atripla Asthma - c/w nebulizer GERD - PPI s/p Hypertensive urgency - Uses Amlodipine 5 QD and Clonidine 0.1 QHS as an outpatient - c/w Amlodipine alone DVT prophylaxis - c/w Lovenox Disposition: - Advance diet as tolerated - Pain control as required GME ATTESTATION My preceptor for this patient encounter was physically present in the building during the encounter and was fully available. As needed, all aspects of the patient interview, examination, medical decision making process, and medical care plan development were reviewed and approved by the preceptor. Preceptor is aware and concurs with the plan as stated in the body of this note and will attest to such by his/her cosignature. ATTENDING NOTE I, Della Lanier, have both independently examined this patient as well as reviewed the documentation. I have discussed in detail with the resident the findings and plan of treatment as documented in the residents documentation. I will continue to follow the patient and offer further guidance to the patients care as necessary during this hospital stay. VS,Fishbone, I+O VS, Fishbone, I+O Laboratory Tests 06/08/17 05:34 Calcium Level 8.2 L, Aspartate Amino Transf (AST/SGOT) 15, Alanine Aminotransferase (ALT/SGPT) 18, Alkaline Phosphatase 91, Total Bilirubin 0.3, Total Protein 7.0, Albumin 2.5 L Vital Signs Date Time Temp Pulse Resp B/P (MAP) Pulse Ox O2 Delivery O2 Flow Rate FiO2 06/08/17 10:01 83 160/88 06/08/17 06:58 98.4 06/08/17 06:00 18 96 Room Air I&O- Last 24 Hours up to 6 AM 06/09/17 06:00 Intake Total 240 ml Balance [address] DO Jun 08, 2017 11:44 DELLA LANIER MD Jun 08, 2017 11:49
--- NOTE | 2017-06-08 12:26 | REP ---
Chest one-view HISTORY: Fever Comparison: 06/05/2017 Patchy density is present in the left lower lobe consistent with atelectasis or infiltrate unchanged compared to the previous study. Linear density is present in the right lower lobe consistent with atelectasis. The heart is normal in size. The pulmonary vasculature is normal in appearance. Impression: 1. Left lower lobe atelectasis or infiltrate unchanged compared to the previous study. 2. Right lower lobe atelectasis. Signed by Luis Corcoran MD 06/08/2017 12:17 P
[2017-06-08 14:00] VITALS: BP 156/81
[2017-06-08 22:00] VITALS: BP 152/88
[2017-06-08] MEDS: traZODone 100 MG TAB PO SCH (22:27)
[2017-06-08] MEDS: QUEtiapine FUMARATE 100 MG TAB PO SCH (22:27)
[2017-06-08] MEDS: traMADol 50 MG TAB PO PRN (22:29)
[2017-06-08] MEDS: CARBAMIDE PEROXIDE 6.5% OTIC SOLN 15ML AU SCH (22:29)
[2017-06-09 06:00] VITALS: BP 142/82
[2017-06-09 06:43] LABS: ALBUMIN 2.5 GM/DL (3.2-5.2); ALBUMIN/GLOBULIN RATIO 0.58 (1.00-1.93); ALKALINE PHOSPHATASE 79 U/L (45-117); ALT/SGPT 24 U/L (12-78); ANION GAP 8 MEQ/L (8-16); AST/SGOT 23 U/L (7-37); BILIRUBIN,TOTAL 0.2 MG/DL (0.2-1.0); BLOOD UREA NITROGEN 6 MG/DL (7-18); CALCIUM LEVEL 8.4 MG/DL (8.5-10.1); CARBON DIOXIDE LEVEL 25 MEQ/L (21-32); CHLORIDE LEVEL 104 MEQ/L (98-107); CREATININE FOR GFR 1.19 MG/DL (0.70-1.30); GLOMERULAR FILTRATION RATE > 60.0 (>56); GLUCOSE, FASTING 139 MG/DL (70-105); POTASSIUM SERUM 3.4 MEQ/L (3.5-5.1); SODIUM LEVEL 137 MEQ/L (136-145); TOTAL PROTEIN 6.8 GM/DL (6.4-8.2)
[2017-06-09] MEDS ORDERED: POTASSIUM CHLORIDE 10 MEQ SR TABLET PO ONE (07:30)
[2017-06-09] MEDS: BUDESONIDE 0.5 MG/2 ML INHALATION SUSPENSION INH SCH (07:55)
[2017-06-09 08:26] LABS: MEAN CORPUSCULAR HEMOGLOBIN 32.1 pg (27.0-33.0); MEAN CORPUSCULAR HGB CONC 34.7 g/dl (32.0-36.5); MEAN CORPUSCULAR VOLUME 92.7 fl (80.0-96.0); PLATELET COUNT, AUTOMATED 263 10^3/uL (150-450); RED CELL DISTRIBUTION WIDTH 12.8 % (11.5-14.5); WHITE BLOOD COUNT 6.1 10^3/uL (4.0-10.0)
[2017-06-09 08:59] LABS: ADD MANUAL DIFFER YES; DIFF SLIDE NUMBER 148; POSITIVE MORPH POS FLAG
[2017-06-09 09:50] LABS: BANDS 5 % (< 11); BASOPHILS 1 % (0-4)
[2017-06-09] MEDS: PANTOPRAZOLE 40MG INJ (PROTONIX) (C9113) IV SCH (10:01)
[2017-06-09] MEDS: GABAPENTIN 400 MG CAP PO SCH (10:02)
[2017-06-09] MEDS: SIMETHICONE 80 MG CHEW TAB PO SCH (10:02)
[2017-06-09] MEDS: buPROPion **XL** TABLET 150MG (WELLBUTRIN XL) PO SCH (10:02)
[2017-06-09] MEDS: ENOXAPARIN 40 MG/0.4 ML SYRINGE (J1650) SC SCH (10:04)
[2017-06-09] MEDS: CARBAMIDE PEROXIDE 6.5% OTIC SOLN 15ML AU SCH (10:05)
[2017-06-09 10:08] VITALS: BP 145/86
[2017-06-09] MEDS: amLODIPine 5 MG TAB PO SCH (10:08)
--- NOTE | 2017-06-09 13:50 | REP ---
Clinical: Left upper extremity pain and swelling. Technique: Steve scale and color Doppler evaluation using linear high frequency transducer. Findings: Ultrasound examination of the left upper extremity deep venous structures demonstrates occlusive thrombus involving the cephalic vein. The visualized jugular, subclavian, axillary, brachial and basilic veins appear patent. Impression: Occlusive and nonocclusive thrombus involving the cephalic vein. Signed by Jose Arguello MD 06/09/2017 01:41 P
[2017-06-09 14:00] VITALS: BP 140/75
[2017-06-09] MEDS: ACETAMINOPHEN TAB 650MG DOSE (2X325MG) PO PRN (14:05)
--- NOTE | 2017-06-09 17:41 | DSES ---
DATE OF ADMISSION: 06/02/2017 DATE OF DISCHARGE: 06/09/2017 ATTENDING PHYSICIAN: Della Lanier MD PRIMARY CARE PROVIDER: Ban Moya MD REFERRING PHYSICIAN: Dr. Olson. CONDITION ON DISCHARGE: Stable. FINAL DIAGNOSES: 1. Acute pancreatitis likely secondary to alcohol abuse. 2. Possible small bowel obstruction (SBO) versus ileus. PROCEDURES: None. HISTORY OF PRESENT ILLNESS: The patient is a 51-year-old -Chinese male with a past medical history of human immunodeficiency virus (HIV), hypertension, asthma, alcohol abuse with hepatitis, bipolar disorder, and gastroesophageal reflux disease (GERD) who presented to the ER with abdominal pain and nausea. Was found to have an elevated lipase and imaging via CT abdomen and pelvis was consistent with pancreatitis. HOSPITAL COURSE: 1. Acute pancreatitis with history of recurrent pancreatitis. Likely secondary to alcohol abuse, less likely secondary to HIV medication. Status post epigastric pain. Lipase was elevated on admission. Has been trended down to normal. ETOH has been noted to be negative. CT abdomen and pelvis on 06/02/2017 endorsed to have evidence of pancreatitis. No stones were noted in the gallbladder. Subsequent CT abdomen and pelvis on 06/06/2017 revealed no evidence of pancreatic process. Inflammatory change had been decreased. No pseudocysts were noted. Bilateral pleural effusions/infiltrates. NG tube was present. Small bowel dilated. Ileus versus SBO with trace ascites. The patient received aggressive IV fluid hydration, symptomatic control of nausea and pain. 2. The patient developed worsening abdominal pain, nausea and vomiting during hospital course and was found to have an ileus secondary to morphine versus possible small bowel obstruction. Noted to have improvement of his symptoms. Physical revealed improvement in his bowel sounds during hospital course. KUB and CT abdomen and pelvis with by mouth (p.o.) contrast showed small bowel obstruction/ileus. The patient had NG tube placed and it was removed. The patient's high dose morphine was discontinued. He was started on Toradol and then eventually switched to tramadol and simethicone. Diet was initially nothing by mouth (npo) and has been advanced as per surgery. 3. Fever of unknown origin. Likely secondary to atelectasis versus possible thrombophlebitis. Chest x-ray has revealed possible atelectasis. UA has been negative. Started on Magic Mouthwash for as needed mouth pain. Advise hot and warm compresses to left arm thrombophlebitis. Ultrasound revealed no evidence of deep vein thrombosis. 4. Status post acute kidney injury. Likely secondary to prerenal etiology. Likely secondary to nausea and vomiting. Possibly secondary to intrarenal etiology secondary to Toradol and CT IV contrast. He is status post Toradol and has improved with aggressive IV fluid hydration. 5. Alcohol abuse. The patient was put on Serax as needed and it has been discontinued because he has no evidence of withdrawal symptoms. 6. HIV. Per patient, the patient's CD4 count has been normal. Viral load was undetectable. Continue with Atripla. 7. Asthma. Continue with nebulizer. 8. Gastroesophageal reflux disease (GERD). Continue with proton pump inhibitor. 9. Status post hypertensive urgency. Uses amlodipine 5 mg daily and clonidine 0.1 mg by mouth every at bedtime as an outpatient. 10. Deep venous thrombosis (DVT) prophylaxis. Continue with Lovenox. DISCHARGE INSTRUCTIONS: The patient has been advised to followup with his primary care provider within the next 10 days. He has been advised to remain compliant with treatment and medications and to return to the emergency room if he experiences any problems. DISCHARGE MEDICATIONS: The patient will be discharged home with the following medication list: - albuterol 2 puffs inhaled every 4 hours as needed shortness of breath - amlodipine 5 mg by mouth daily - Asmanex 1 puff inhaled every p.m. - bupropion 150 mg by mouth daily - clonidine 0.1 mg by mouth at bedtime - Atripla 1 tablet by mouth daily - gabapentin 400 mg by mouth three times a day - hydroxyzine 10 mg by mouth twice a day as needed anxiety and agitation. - Protonix 40 mg by mouth every daily - quetiapine 300 mg by mouth at bedtime - sucralfate 1 gram by mouth before food and at bedtime - trazodone 200 mg by mouth at bedtime STOPPED MEDICATIONS: Include: - ibuprofen - Odansetron Time spent on discharge greater than 30 minutes.
== END 2017-06-09 14:49 | disposition home or self-care (01) | DRG 282 ==
LOC: M ED 12:51 → M ED INP 18:09 → M MS4PR 22:15 → M MSPAV 06-05 14:13
PROVIDERS: ADMIT Internal Medicine Nephrology; ATTEND Internal Medicine
DX: K85.20 Alcohol induced acute pancreatitis without necrosis or infection (principal); N17.9 Acute kidney failure, unspecified; B20 Human immunodeficiency virus [HIV] disease; K56.7 Ileus, unspecified; F10.10 Alcohol abuse, uncomplicated; F31.9 Bipolar disorder, unspecified; F60.3 Borderline personality disorder; I10 Essential (primary) hypertension; J45.909 Unspecified asthma, uncomplicated; K21.9 Gastro-esophageal reflux disease without esophagitis; Z91.018 Allergy to other foods; Z79.899 Other long term (current) drug therapy; I16.0 Hypertensive urgency

== ENCOUNTER 2017-08-27 15:44 | Emergency (ER) | payer OTHER, MEDICAID ==
[2017-08-27 17:10] LABS: BASO % 0.6 % (0.0-1.0); EOS # 0.2 10^3/uL (0.0-0.50); EOS % 3.6 % (0.0-3.0); HEMATOCRIT 40.1 % (42.0-52.0); HEMOGLOBIN 13.6 g/dl (14.0-18.0); IMMATURE GRANULOCYTE % 0.2 % (0-0); LYMPH # 1.7 10^3/uL (1.5-4.5); MEAN CORPUSCULAR HEMOGLOBIN 31.3 pg (27.0-33.0); MEAN CORPUSCULAR HGB CONC 33.9 g/dl (32.0-36.5); MEAN CORPUSCULAR VOLUME 92.2 fl (80.0-96.0); MONO # 0.5 10^3/uL (0.0-0.8); MONO % 10.7 % (0.0-5.0); NEUTROPHILS # 2.5 10^3/uL (1.8-7.7); NEUTROPHILS % 50.9 % (36.0-66.0); PLATELET COUNT, AUTOMATED 232 10^3/uL (150-450); RED BLOOD COUNT 4.35 10^6/uL (4.30-6.10); RED CELL DISTRIBUTION WIDTH 13.2 % (11.5-14.5); WHITE BLOOD COUNT 4.9 10^3/uL (4.0-10.0)
[2017-08-27] MEDS: ASPIRIN 81 MG CHEW TABLET PO (17:17)
[2017-08-27] MEDS: GI COCKTAIL 50ML BTL(HYOSCYAMINE/MAALOX/LIDOCAINE VISCOUS)(1:3:1) PO (17:19)
[2017-08-27 17:29] LABS: ALBUMIN 3.6 GM/DL (3.2-5.2); ALBUMIN/GLOBULIN RATIO 0.72 (1.00-1.93); ALKALINE PHOSPHATASE 137 U/L (45-117); ALT/SGPT 19 U/L (12-78); ANION GAP 5 MEQ/L (8-16); AST/SGOT 17 U/L (7-37); BILIRUBIN,DIRECT < 0.1 MG/DL (0.0-0.2); BILIRUBIN,TOTAL 0.2 MG/DL (0.2-1.0); BLOOD UREA NITROGEN 13 MG/DL (7-18); CALCIUM LEVEL 8.8 MG/DL (8.5-10.1); CARBON DIOXIDE LEVEL 28 MEQ/L (21-32); CHLORIDE LEVEL 107 MEQ/L (98-107); CPK CREATINE PHOSPHOKINASE 136 U/L (39-308); CREATININE FOR GFR 1.63 MG/DL (0.70-1.30); GLOMERULAR FILTRATION RATE 57.8 (>56); GLUCOSE, FASTING 122 MG/DL (70-100); LIPASE 62 U/L (73-393); MB/CK RELATIVE INDEX 0.73 (< OR =4); SODIUM LEVEL 140 MEQ/L (136-145); TOTAL PROTEIN 8.6 GM/DL (6.4-8.2); TROPONIN I < 0.02 NG/ML (< 0.10)
== END 2017-08-27 18:10 | disposition home or self-care (01) ==
LOC: M ED 15:44
DX: B20 Human immunodeficiency virus [HIV] disease (principal); K29.00 Acute gastritis without bleeding; K21.9 Gastro-esophageal reflux disease without esophagitis; I10 Essential (primary) hypertension; F17.200 Nicotine dependence, unspecified, uncomplicated; J44.9 Chronic obstructive pulmonary disease, unspecified; Z86.73 Personal history of transient ischemic attack (TIA), and cerebral infarction without residual deficits
CPT/HCPCS: 71046

== ENCOUNTER → 2017-10-16 | Outpatient (REF) | payer OTHER ==
[2017-10-16 14:47] LABS: ALBUMIN 3.4 GM/DL (3.2-5.2); ALBUMIN/GLOBULIN RATIO 0.87 (1.00-1.93); ALKALINE PHOSPHATASE 128 U/L (45-117); ALT/SGPT 29 U/L (12-78); ANION GAP 5 MEQ/L (8-16); AST/SGOT 21 U/L (7-37); BILIRUBIN,TOTAL 0.2 MG/DL (0.2-1.0); BLOOD UREA NITROGEN 13 MG/DL (7-18); CALCIUM LEVEL 8.5 MG/DL (8.5-10.1); CARBON DIOXIDE LEVEL 29 MEQ/L (21-32); CHLORIDE LEVEL 106 MEQ/L (98-107); CHOLESTEROL LEVEL 219 MG/DL (<200); CHOLESTEROL RISK RATIO 3.318 (<5); CREATININE FOR GFR 1.42 MG/DL (0.70-1.30); GLOMERULAR FILTRATION RATE > 60.0 (>56); GLUCOSE, FASTING 114 MG/DL (70-100); HDL CHOLESTEROL 66 MG/DL (>40); LDL CHOLESTEROL 80.8 MG/DL (<100); NON-HDL-C 153 MG/DL; POTASSIUM SERUM 4.3 MEQ/L (3.5-5.1); PSA SCREENING 3.46 NG/ML (< 4.0); SODIUM LEVEL 140 MEQ/L (136-145); TOTAL PROTEIN 7.3 GM/DL (6.4-8.2); TRIGLYCERIDES LEVEL 361 MG/DL (<150)
[2017-10-18 14:10] LABS: % CD8 Pos Lymph 28.5 % (12.0-35.5); %CD4 Pos Lymphs 53.6 % (30.8-58.5); ABS Eosinophils 0.2 x10E3/uL (0.0-0.4); ABS Lymphs 2.6 x10E3/uL (0.7-3.1); ABS Monocytes 0.7 x10E3/uL (0.1-0.9); ABS Neutophils 1.8 x10E3/uL (1.4-7.0); Abs CD4 Helper 1394 /uL (359-1519); Abs CD8 Suppres 741 /uL (109-897); CD4/CD8 Ratio 1.88 (0.92-3.72); Eosinophils 4 % (Not Estab.); HCT 37.8 % (37.5-51.0); HGB 12.8 g/dL (13.0-17.7); HIV-1 RNA PCR QUANT 2 LC550285 <20 copies/mL (.); Immature Grans 0 % (Not Estab.); Lymphocytes 47 % (Not Estab.); MCH 32.4 pg (26.6-33.0); MCHC 33.9 g/dL (31.5-35.7); MCV 96 fL (79-97); Monocytes 14 % (Not Estab.); Neutrophils 34 % (Not Estab.); Platelets 229 x10E3/uL (150-379); RBC 3.95 x10E6/uL (4.14-5.80); RDW 15.1 % (12.3-15.4); WBC 5.4 x10E3/uL (3.4-10.8)
== END ==
LOC: M SFHCPLAZ 10:44
DX: B20 Human immunodeficiency virus [HIV] disease (principal); E78.00 Pure hypercholesterolemia, unspecified; Z12.5 Encounter for screening for malignant neoplasm of prostate
CPT/HCPCS: 87536

== ENCOUNTER 2017-10-21 16:14 | Inpatient (IN) | payer OTHER ==
[2017-10-21] MEDS: NS 1,000 ML IV (17:04)
[2017-10-21 17:11] LABS: VENOUS BASE EXCESS 4.9 (-2.0-2.0); VENOUS O2 SATURATION 42.1 % (60.0-80.0); VENOUS PARTIAL PRESSURE CO2 69.3 mmHg (38.0-50.0); VENOUS PARTIAL PRESSURE O2 21.6 mmHg (30.0-50.0); VENOUS PH 7.308 UNITS (7.330-7.430); VENOUS STANDARD HCO3 27.2 MEQ/L; VENOUS TOTAL CO2 36.1 MEQ/L (24.0-28.0)
[2017-10-21 17:21] LABS: HEMATOCRIT 43.7 % (42.0-52.0); HEMOGLOBIN 14.9 g/dl (14.0-18.0); MEAN CORPUSCULAR HEMOGLOBIN 32.3 pg (27.0-33.0); MEAN CORPUSCULAR HGB CONC 34.1 g/dl (32.0-36.5); MEAN CORPUSCULAR VOLUME 94.6 fl (80.0-96.0); PLATELET COUNT, AUTOMATED 256 10^3/uL (150-450); RED BLOOD COUNT 4.62 10^6/uL (4.30-6.10); RED CELL DISTRIBUTION WIDTH 13.6 % (11.5-14.5); WHITE BLOOD COUNT 4.5 10^3/uL (4.0-10.0)
[2017-10-21 17:33] LABS: OSMOLALITY SERUM 389 MOSM/KG (275-295)
[2017-10-21 17:36] LABS: ADD MANUAL DIFFER YES; DIFF SLIDE NUMBER 311; POSITIVE DIFF POS FLAG
[2017-10-21 17:40] LABS: ATYPICAL LYMPH 9 % (0-5); BASOPHILS 1 % (0-4); EOSINOPHILS 4 % (0-5); LYMPHOCYTES 65 % (16-52); MONOCYTES 10 % (0-8); NEUTROPHILS 11 % (35-75); PLATELET ESTIMATE NORMAL (NORMAL)
[2017-10-21 17:45] LABS: ALBUMIN 4.2 GM/DL (3.2-5.2); ALBUMIN/GLOBULIN RATIO 0.82 (1.00-1.93); ALKALINE PHOSPHATASE 145 U/L (45-117); ALT/SGPT 30 U/L (12-78); ANION GAP 5 MEQ/L (8-16); AST/SGOT 27 U/L (7-37); BILIRUBIN,DIRECT < 0.1 MG/DL (0.0-0.2); BILIRUBIN,TOTAL 0.3 MG/DL (0.2-1.0); BLOOD UREA NITROGEN 8 MG/DL (7-18); CALCIUM LEVEL 8.8 MG/DL (8.5-10.1); CARBON DIOXIDE LEVEL 30 MEQ/L (21-32); CHLORIDE LEVEL 109 MEQ/L (98-107); CPK CREATINE PHOSPHOKINASE 253 U/L (39-308); CREATININE FOR GFR 1.29 MG/DL (0.70-1.30); ETHYL ALCOHOL (ETHANOL) 0.335 % (0.000-0.010); GLOMERULAR FILTRATION RATE > 60.0 (>56); GLUCOSE, FASTING 118 MG/DL (70-100); POTASSIUM SERUM 4.1 MEQ/L (3.5-5.1); SALICYLATE LEVEL 6.1 MG/DL (5.0-30.0); SODIUM LEVEL 144 MEQ/L (136-145); TOTAL PROTEIN 9.3 GM/DL (6.4-8.2)
[2017-10-21 17:50] LABS: ACETAMINOPHEN LEVEL < 2.0 UG/ML (10.0-30.0)
[2017-10-21] MEDS ORDERED: ONDANSETRON 4MG/2ML VIAL (J2405) IV (19:30)
[2017-10-21] MEDS ORDERED: ALBUTEROL SULFATE 2.5 MG/0.5 ML INH NEB SOLN INH (19:30)
[2017-10-21 19:51] LABS: AMPHETAMINES LEVEL URINE NEGATIVE (NEGATIVE); BARBITURATES URINE NEGATIVE (NEGATIVE); BENZODIAZEPINES URINE NEGATIVE (NEGATIVE); CANNABINOIDS URINE NEGATIVE (NEGATIVE); COCAINE METABOLITE URINE NEGATIVE (NEGATIVE); METHADONE URINE NEGATIVE (NEGATIVE); OPIATES URINE NEGATIVE (NEGATIVE); PHENCYCLIDINE URINE NEGATIVE (NEGATIVE)
[2017-10-21] MEDS: HEPARIN SOD (PORCINE) 5000 UNITS/ML VIAL SC (21:20)
[2017-10-21] MEDS: MULTIVITAMIN -ADULT INJECTION 10 ML, THIAMINE INJection 100 MG, FOLIC ACID 1 MG in NS 1... IV (21:20)
[2017-10-21] MEDS: PANTOPRAZOLE 40MG INJ (PROTONIX) (C9113) IV (21:20)
[2017-10-21 21:32] LABS: SALICYLATE LEVEL 5.2 MG/DL (5.0-30.0)
[2017-10-21] MEDS: ALBUTEROL SULFATE 2.5 MG/0.5 ML INH NEB SOLN INH (21:34)
[2017-10-21 22:11] LABS: CK-MB VALUE MASS < 1.0 NG/ML (<3.6); CPK CREATINE PHOSPHOKINASE 201 U/L (39-308); MB/CK RELATIVE INDEX 0.49 (< OR =4); TROPONIN I < 0.02 NG/ML (< 0.10)
[2017-10-22 00:03] LABS: D-DIMER QUANT < 270.0 ng/ml (<500)
[2017-10-22 01:52] LABS: CPK CREATINE PHOSPHOKINASE 176 U/L (39-308); TROPONIN I < 0.02 NG/ML (< 0.10)
[2017-10-22 01:56] LABS: CK-MB VALUE MASS < 1.0 NG/ML (<3.6); MB/CK RELATIVE INDEX 0.56 (< OR =4)
[2017-10-22] MEDS: NS 1,000 ML IV ×2 (06:18→16:41)
[2017-10-22 06:57] LABS: HEMOGLOBIN 11.8 g/dl (14.0-18.0); MEAN CORPUSCULAR HGB CONC 33.7 g/dl (32.0-36.5); MEAN CORPUSCULAR VOLUME 94.9 fl (80.0-96.0); PLATELET COUNT, AUTOMATED 218 10^3/uL (150-450); RED BLOOD COUNT 3.69 10^6/uL (4.30-6.10); RED CELL DISTRIBUTION WIDTH 13.8 % (11.5-14.5); WHITE BLOOD COUNT 3.3 10^3/uL (4.0-10.0)
[2017-10-22 07:13] LABS: ALBUMIN 2.9 GM/DL (3.2-5.2); ALBUMIN/GLOBULIN RATIO 0.73 (1.00-1.93); ALKALINE PHOSPHATASE 105 U/L (45-117); ALT/SGPT 24 U/L (12-78); ANION GAP 7 MEQ/L (8-16); AST/SGOT 25 U/L (7-37); BILIRUBIN,TOTAL 0.2 MG/DL (0.2-1.0); BLOOD UREA NITROGEN 9 MG/DL (7-18); CALCIUM LEVEL 7.7 MG/DL (8.5-10.1); CARBON DIOXIDE LEVEL 27 MEQ/L (21-32); CHLORIDE LEVEL 114 MEQ/L (98-107); CREATININE FOR GFR 1.07 MG/DL (0.70-1.30); GLOMERULAR FILTRATION RATE > 60.0 (>56); GLUCOSE, FASTING 94 MG/DL (70-100); LIPASE 47 U/L (73-393); MAGNESIUM LEVEL 2.2 MG/DL (1.8-2.4); POTASSIUM SERUM 3.8 MEQ/L (3.5-5.1); SODIUM LEVEL 148 MEQ/L (136-145); TOTAL PROTEIN 6.9 GM/DL (6.4-8.2)
[2017-10-22] MEDS: ALBUTEROL SULFATE 2.5 MG/0.5 ML INH NEB SOLN INH ×4 (07:50→20:00)
[2017-10-22] MEDS: HEPARIN SOD (PORCINE) 5000 UNITS/ML VIAL SC ×2 (09:20→20:24)
[2017-10-22] MEDS: PANTOPRAZOLE 40MG INJ (PROTONIX) (C9113) IV (20:23)
[2017-10-23] MEDS: NS 1,000 ML IV ×2 (00:38→09:02)
[2017-10-23 05:00] LABS: HEMATOCRIT 31.9 % (42.0-52.0); HEMOGLOBIN 10.9 g/dl (14.0-18.0); MEAN CORPUSCULAR HEMOGLOBIN 32.2 pg (27.0-33.0); MEAN CORPUSCULAR HGB CONC 34.2 g/dl (32.0-36.5); MEAN CORPUSCULAR VOLUME 94.1 fl (80.0-96.0); PLATELET COUNT, AUTOMATED 182 10^3/uL (150-450); RED BLOOD COUNT 3.39 10^6/uL (4.30-6.10); RED CELL DISTRIBUTION WIDTH 13.1 % (11.5-14.5); WHITE BLOOD COUNT 4.6 10^3/uL (4.0-10.0)
[2017-10-23 05:23] LABS: ALBUMIN 2.7 GM/DL (3.2-5.2); ALBUMIN/GLOBULIN RATIO 0.73 (1.00-1.93); ALKALINE PHOSPHATASE 106 U/L (45-117); ALT/SGPT 43 U/L (12-78); ANION GAP 5 MEQ/L (8-16); AST/SGOT 50 U/L (7-37); BILIRUBIN,TOTAL 0.3 MG/DL (0.2-1.0); BLOOD UREA NITROGEN 8 MG/DL (7-18); CALCIUM LEVEL 7.7 MG/DL (8.5-10.1); CARBON DIOXIDE LEVEL 29 MEQ/L (21-32); CHLORIDE LEVEL 111 MEQ/L (98-107); CREATININE FOR GFR 1.34 MG/DL (0.70-1.30); GLOMERULAR FILTRATION RATE > 60.0 (>56); GLUCOSE, FASTING 96 MG/DL (70-100); LIPASE 53 U/L (73-393); MAGNESIUM LEVEL 2.2 MG/DL (1.8-2.4); POTASSIUM SERUM 3.6 MEQ/L (3.5-5.1); SODIUM LEVEL 145 MEQ/L (136-145); TOTAL PROTEIN 6.4 GM/DL (6.4-8.2)
[2017-10-23] MEDS: ALBUTEROL SULFATE 2.5 MG/0.5 ML INH NEB SOLN INH ×3 (07:25→15:39)
[2017-10-23] MEDS: amLODIPine 5 MG TAB PO (09:02)
[2017-10-23] MEDS: HEPARIN SOD (PORCINE) 5000 UNITS/ML VIAL SC (09:02)
[2017-10-24] MEDS ORDERED: NON-FORMULARY COMPOUNDED MEDICATION PO (09:00)
[2017-10-29 14:09] LABS: BATH SALTS PLASMA SEE SEPARATE REPORT
== END 2017-10-23 18:36 | DRG 812 ==
LOC: M PCU 10-22 13:25 → M ED 16:14 → M ED INP 19:18
DX: T43.592A Poisoning by other antipsychotics and neuroleptics, intentional self-harm, initial encounter (principal); G92 Toxic encephalopathy; F32.89 Other specified depressive episodes; I10 Essential (primary) hypertension; J45.909 Unspecified asthma, uncomplicated; K21.9 Gastro-esophageal reflux disease without esophagitis; F10.129 Alcohol abuse with intoxication, unspecified; F60.3 Borderline personality disorder; Z79.899 Other long term (current) drug therapy; Y92.009 Unspecified place in unspecified non-institutional (private) residence as the place of occurrence of the external cause; B20 Human immunodeficiency virus [HIV] disease

== ENCOUNTER 2017-10-23 18:40 | Inpatient (IN) | payer MEDICAID, OTHER ==
[~2017-10-23 18:40] MED LIST changes: -/ADVA50050 IN; -/AMLO25TA PO; -/CLON1TA PO; -/MOXI40TA PO; -/QUET10TA OR; -/SUCR1TA OR; -/THIA10TA; -/THIA10TA OR; -ALBU17IN INH; -ALBU17IN2 INH; -ASPI325T PO; -ATEN50TA2 PO; -ATENPOW PO; -ATOR40TA75 PO; -ATRIPLA OR; -ATRIPLA PO; -BIAX500T; -BUPR150T3 PO; -BUPR15TA PO; -BUPR300T34 PO; -BUPR75TA5 PO; -CATA0.3T; -CLON-412 PO; -CLON0.2T OR; -DESYREL; -DILA2TAB OR; -DULE200A INH; -FOLI1TAB; -FOLI1TAB OR; -FOLI1TAB86 PO; -FOLI5INJ2 PO; -GABA-283 PO; -HALO5TA PO; -HIV MED PO; -HYDR-643 PO; -IBUP1TAB6 PO; -IBUP1TAB7 PO; +MAALOX 30 ML SUSP *UDC PO; -MELA1CAP2 PO; -MIRT30TA3 PO; -MIRT45TA PO; +MOM 30ML SUSPENSION UDC PO; -MUCI600T34 PO; -MULTIVIT PO; -Magnesium Oxide PO; -NICO14PA TD; -NICO21DI4 TD; -NICO21DI5 TD; -NORV5TAB OR; -NORV5TAB PO; -NYSTATIN ORAL OR; -NYSTATIN ORAL PO; -OMEP40CA2 PO; -PAXI20TA OR; -PERC5TAB12 PO; -PERC5TAB8; -PERC5TAB8 OR; -PERCOCET PO; -PRIL40CA OR; -QUET1TAB10 PO; -SERO1TAB2 PO; -SERO200T PO; -SUCR1TA PO; -TENO50TA PO; -THERGRAN PO; -TRAZ-136 PO; -TRAZ10TA PO; -TYLE325T5 PO; -VITA100T2 PO; -VITA100T60 PO; -VITACHTA PO; -WELL100T OR; -WELL100T PO; -WELL150T PO; -WELL75TA PO; -ZANT150T; -ZANT150T OR; -ZOFR20TA PO; -ZOFR4SOL PO; -ZOLO100T PO; -albuterol inhaler INH; -clonidine PO
[2017-10-23] MEDS: NICOTINE 14 MG/24 HR TRANSDERMAL TD (19:53)
[2017-10-23] MEDS: ACETAMINOPHEN TAB 650MG DOSE (2X325MG) PO (19:54)
[2017-10-23] MEDS: traZODone 50 MG TAB PO (22:58)
[2017-10-24] MEDS: NICOTINE 14 MG/24 HR TRANSDERMAL TD (08:05)
[2017-10-24] MEDS ORDERED: ALBUTEROL 90 MCG/ACT 8GM HFA INHALER INH (12:45)
[2017-10-24] MEDS: GABAPENTIN 400 MG CAP PO ×2 (15:45→23:00)
[2017-10-24] MEDS: amLODIPine 5 MG TAB PO (15:45)
[2017-10-24] MEDS: PANTOPRAZOLE 40MG TAB (PROTONIX) PO (15:45)
[2017-10-24] MEDS: buPROPion **XL** TABLET 150MG (WELLBUTRIN XL) PO (15:45)
[2017-10-24] MEDS: SUCRALFATE 1 GM TAB PO (16:51)
[2017-10-24] MEDS ORDERED: ENTER DRUG NAME HERE (PATIENT'S OWN MED) INH (21:00)
[2017-10-24] MEDS: traZODone 100 MG TAB PO (23:00)
[2017-10-24] MEDS: QUEtiapine FUMARATE 100 MG TAB PO (23:00)
[2017-10-24] MEDS: cloNIDine 0.1 MG TAB PO (23:01)
[2017-10-25] MEDS ORDERED: ENTER DRUG NAME HERE (PATIENT'S OWN MED) PO (06:00)
[2017-10-25 06:41] LABS: BASO % 0.5 % (0.0-1.0); EOS # 0.2 10^3/uL (0.0-0.50); HEMATOCRIT 33.8 % (42.0-52.0); HEMOGLOBIN 11.7 g/dl (13.5-17.5); IMMATURE GRANULOCYTE % 0.2 % (0-3.0); LYMPH # 2.2 10^3/uL (1.5-4.5); LYMPH % 39.8 % (24.0-44.0); MEAN CORPUSCULAR HEMOGLOBIN 32.1 pg (27.0-33.0); MEAN CORPUSCULAR HGB CONC 34.6 g/dl (32.0-36.5); MEAN CORPUSCULAR VOLUME 92.6 fl (80.0-96.0); MONO # 0.6 10^3/uL (0.0-0.8); MONO % 11.2 % (0.0-5.0); NEUTROPHILS # 2.5 10^3/uL (1.8-7.7); NEUTROPHILS % 45.3 % (36.0-66.0); PLATELET COUNT, AUTOMATED 185 10^3/uL (150-450); RED BLOOD COUNT 3.65 10^6/uL (4.30-6.10); RED CELL DISTRIBUTION WIDTH 12.6 % (11.5-14.5); WHITE BLOOD COUNT 5.6 10^3/uL (4.0-10.0)
[2017-10-25] MEDS: SUCRALFATE 1 GM TAB PO ×3 (06:46→17:10)
[2017-10-25 07:00] LABS: ALBUMIN 3.1 GM/DL (3.2-5.2); ALBUMIN/GLOBULIN RATIO 0.79 (1.00-1.93); ALKALINE PHOSPHATASE 126 U/L (45-117); ALT/SGPT 41 U/L (12-78); ANION GAP 6 MEQ/L (8-16); AST/SGOT 26 U/L (7-37); BILIRUBIN,TOTAL 0.2 MG/DL (0.2-1.0); BLOOD UREA NITROGEN 13 MG/DL (7-18); CALCIUM LEVEL 8.3 MG/DL (8.5-10.1); CARBON DIOXIDE LEVEL 26 MEQ/L (21-32); CHLORIDE LEVEL 108 MEQ/L (98-107); CREATININE FOR GFR 1.21 MG/DL (0.70-1.30); GLOMERULAR FILTRATION RATE > 60.0 (>56); GLUCOSE, FASTING 131 MG/DL (70-100); POTASSIUM SERUM 3.7 MEQ/L (3.5-5.1); SODIUM LEVEL 140 MEQ/L (136-145)
[2017-10-25] MEDS: NICOTINE 14 MG/24 HR TRANSDERMAL TD (08:18)
[2017-10-25] MEDS: buPROPion **XL** TABLET 150MG (WELLBUTRIN XL) PO (08:19)
[2017-10-25] MEDS: GABAPENTIN 400 MG CAP PO ×3 (08:19→23:29)
[2017-10-25] MEDS: PANTOPRAZOLE 40MG TAB (PROTONIX) PO (08:19)
[2017-10-25] MEDS: amLODIPine 5 MG TAB PO (08:19)
[2017-10-25] MEDS: ACETAMINOPHEN TAB 650MG DOSE (2X325MG) PO ×2 (08:20→23:31)
[2017-10-25] MEDS: QUEtiapine FUMARATE 100 MG TAB PO (23:29)
[2017-10-25] MEDS: traZODone 100 MG TAB PO (23:29)
[2017-10-25] MEDS: cloNIDine 0.1 MG TAB PO (23:30)
[2017-10-26] MEDS: SUCRALFATE 1 GM TAB PO ×3 (06:41→16:47)
[2017-10-26] MEDS: GABAPENTIN 400 MG CAP PO ×3 (09:33→21:51)
[2017-10-26] MEDS: buPROPion **XL** TABLET 150MG (WELLBUTRIN XL) PO (09:33)
[2017-10-26] MEDS: PANTOPRAZOLE 40MG TAB (PROTONIX) PO (09:33)
[2017-10-26] MEDS: amLODIPine 5 MG TAB PO (09:37)
[2017-10-26] MEDS: NICOTINE 14 MG/24 HR TRANSDERMAL TD (09:38)
[2017-10-26] MEDS: cloNIDine 0.1 MG TAB PO (21:50)
[2017-10-26] MEDS: QUEtiapine FUMARATE 100 MG TAB PO (21:51)
[2017-10-26] MEDS: traZODone 100 MG TAB PO (21:52)
[2017-10-27] MEDS: SUCRALFATE 1 GM TAB PO ×2 (07:30→12:28)
[2017-10-27] MEDS: NICOTINE 14 MG/24 HR TRANSDERMAL TD (09:00)
[2017-10-27] MEDS: PANTOPRAZOLE 40MG TAB (PROTONIX) PO (09:00)
[2017-10-27] MEDS: buPROPion **XL** TABLET 150MG (WELLBUTRIN XL) PO (09:00)
[2017-10-27] MEDS: GABAPENTIN 400 MG CAP PO (09:00)
[2017-10-27] MEDS: amLODIPine 5 MG TAB PO (09:00)
== END 2017-10-27 13:15 | disposition home or self-care (01) | DRG 885 ==
LOC: M PSY 18:40
DX: F31.9 Bipolar disorder, unspecified (principal); F10.10 Alcohol abuse, uncomplicated; F60.3 Borderline personality disorder; Z91.5 Personal history of self-harm; Z91.018 Allergy to other foods

== ENCOUNTER 2017-11-08 13:45 | Inpatient (IN) | payer OTHER, MEDICAID ==
[2017-11-08] MEDS: MORPHINE 4 MG/ML 1ML VIAL/SYRINGE (J2270) IV ×4 (15:02→23:48)
[2017-11-08] MEDS: ONDANSETRON 4MG/2ML VIAL (J2405) IV (15:02)
[2017-11-08] MEDS: NS 1,000 ML IV ×2 (15:02→19:38)
[2017-11-08 15:03] LABS: BASO % 0.6 % (0.0-1.0); EOS # 0.1 10^3/uL (0.0-0.50); EOS % 1.3 % (0.0-3.0); HEMATOCRIT 37.5 % (42.0-52.0); HEMOGLOBIN 13.2 g/dl (13.5-17.5); IMMATURE GRANULOCYTE % 0.2 % (0-3.0); LYMPH # 1.6 10^3/uL (1.5-4.5); MEAN CORPUSCULAR HEMOGLOBIN 32.6 pg (27.0-33.0); MEAN CORPUSCULAR HGB CONC 35.2 g/dl (32.0-36.5); MEAN CORPUSCULAR VOLUME 92.6 fl (80.0-96.0); MONO # 0.4 10^3/uL (0.0-0.8); NEUTROPHILS # 3.1 10^3/uL (1.8-7.7); NEUTROPHILS % 58.9 % (36.0-66.0); PLATELET COUNT, AUTOMATED 230 10^3/uL (150-450); RED BLOOD COUNT 4.05 10^6/uL (4.30-6.10); RED CELL DISTRIBUTION WIDTH 12.6 % (11.5-14.5); WHITE BLOOD COUNT 5.3 10^3/uL (4.0-10.0)
[2017-11-08 15:21] LABS: LACTIC ACID SEPSIS PROTOCOL 1.3 MMOL/L (0.4-2.0)
[2017-11-08 15:21] LABS: ALBUMIN 3.6 GM/DL (3.2-5.2); ALKALINE PHOSPHATASE 125 U/L (45-117); ALT/SGPT 26 U/L (12-78); AMYLASE 86 U/L (25-115); ANION GAP 8 MEQ/L (8-16); AST/SGOT 21 U/L (7-37); BILIRUBIN,DIRECT 0.1 MG/DL (0.0-0.2); BILIRUBIN,TOTAL 0.3 MG/DL (0.2-1.0); BLOOD UREA NITROGEN 12 MG/DL (7-18); CALCIUM LEVEL 8.7 MG/DL (8.5-10.1); CARBON DIOXIDE LEVEL 25 MEQ/L (21-32); CHLORIDE LEVEL 106 MEQ/L (98-107); CREATININE FOR GFR 1.27 MG/DL (0.70-1.30); GLOMERULAR FILTRATION RATE > 60.0 (>56); GLUCOSE, FASTING 124 MG/DL (70-100); LIPASE 986 U/L (73-393); POTASSIUM SERUM 3.7 MEQ/L (3.5-5.1); SODIUM LEVEL 139 MEQ/L (136-145); TOTAL PROTEIN 8.1 GM/DL (6.4-8.2)
[2017-11-08] MEDS ORDERED: ISOVUE-370 76% 100ML VIAL (Q9967) As Ordered (15:53)
[2017-11-08 16:09] LABS: TROPONIN I < 0.02 NG/ML (< 0.10)
[2017-11-08 16:39] LABS: CK-MB VALUE MASS < 1.0 NG/ML (<3.6); CPK CREATINE PHOSPHOKINASE 129 U/L (39-308); MB/CK RELATIVE INDEX 0.77 (< OR =4)
[2017-11-08] MEDS: HYDROmorphone HCL 1 MG/ML SYRINGE (J1170) IV (17:57)
[2017-11-08] MEDS ORDERED: ONDANSETRON 4MG/2ML VIAL (J2405) IV (18:30)
[2017-11-08 18:53] LABS: INR 0.93; PROTHROMBIN TIME 12.5 SECONDS (12.4-14.5)
[2017-11-08 18:54] LABS: PARTIAL THROMBOPLASTIN TIME 29.1 SECONDS (26.8-37.9)
[2017-11-08] MEDS: PERCOCET 5MG/325MG TAB PO (19:38)
[2017-11-08] MEDS: amLODIPine 5 MG TAB PO (19:38)
[2017-11-08] MEDS ORDERED: traZODone 100 MG TAB PO (21:00)
[2017-11-08] MEDS: traZODone 100 MG TAB PO (21:28)
[2017-11-08] MEDS: cloNIDine 0.1 MG TAB PO (21:28)
[2017-11-08] MEDS: GABAPENTIN 400 MG CAP PO (21:28)
[2017-11-08] MEDS: QUEtiapine FUMARATE 100 MG TAB PO (21:47)
[2017-11-09] MEDS: NS 1,000 ML IV ×4 (00:36→21:11)
[2017-11-09] MEDS: MORPHINE 4 MG/ML 1ML VIAL/SYRINGE (J2270) IV ×5 (03:45→15:15)
[2017-11-09 04:41] LABS: HEMATOCRIT 33.8 % (42.0-52.0); HEMOGLOBIN 11.5 g/dl (13.5-17.5); MEAN CORPUSCULAR HEMOGLOBIN 31.7 pg (27.0-33.0); MEAN CORPUSCULAR VOLUME 93.1 fl (80.0-96.0); PLATELET COUNT, AUTOMATED 196 10^3/uL (150-450); RED BLOOD COUNT 3.63 10^6/uL (4.30-6.10); RED CELL DISTRIBUTION WIDTH 12.5 % (11.5-14.5); WHITE BLOOD COUNT 4.7 10^3/uL (4.0-10.0)
[2017-11-09 04:58] LABS: ANION GAP 5 MEQ/L (8-16); BLOOD UREA NITROGEN 6 MG/DL (7-18); CALCIUM LEVEL 7.6 MG/DL (8.5-10.1); CARBON DIOXIDE LEVEL 25 MEQ/L (21-32); CHLORIDE LEVEL 110 MEQ/L (98-107); CREATININE FOR GFR 0.96 MG/DL (0.70-1.30); GLOMERULAR FILTRATION RATE > 60.0 (>56); GLUCOSE, FASTING 103 MG/DL (70-100); POTASSIUM SERUM 3.6 MEQ/L (3.5-5.1); SODIUM LEVEL 140 MEQ/L (136-145); TRIGLYCERIDES LEVEL 167 MG/DL (<150)
[2017-11-09] MEDS: PERCOCET 5MG/325MG TAB PO ×3 (08:01→21:12)
[2017-11-09] MEDS: ENOXAPARIN 40 MG/0.4 ML SYRINGE (J1650) SC (09:09)
[2017-11-09] MEDS: buPROPion **XL** TABLET 150MG (WELLBUTRIN XL) PO (09:11)
[2017-11-09] MEDS: PANTOPRAZOLE 40MG TAB (PROTONIX) PO (09:11)
[2017-11-09] MEDS: amLODIPine 5 MG TAB PO (09:11)
[2017-11-09] MEDS: GABAPENTIN 400 MG CAP PO ×3 (09:12→21:11)
[2017-11-09 09:52] LABS: ALBUMIN 2.9 GM/DL (3.2-5.2); ALBUMIN/GLOBULIN RATIO 0.81 (1.00-1.93); ALKALINE PHOSPHATASE 108 U/L (45-117); ALT/SGPT 23 U/L (12-78); AST/SGOT 15 U/L (7-37); BILIRUBIN,DIRECT 0.1 MG/DL (0.0-0.2); BILIRUBIN,TOTAL 0.4 MG/DL (0.2-1.0); LIPASE 1707 U/L (73-393); TOTAL PROTEIN 6.5 GM/DL (6.4-8.2)
[2017-11-09] MEDS: FLUTICASONE HFA 220 MCG 12 GM INHALER (FLOVENT) INH ×2 (11:48→19:41)
[2017-11-09 12:05] LABS: KETONE, URINE AUTO RFX TRACE mg/dL (NEGATIVE); LEUKOCYTE ESTERASE UR AUTO RFX NEGATIVE (NEGATIVE); NITRITE, URINE AUTO RFX NEGATIVE (NEGATIVE); RBC, URINE AUTO RFX 3 /HPF (0-3); SPECIFIC GRAVITY UR AUTO RFX 1.011 (1.002-1.035); SQUAM EPITHELIAL CELL UR AURFX 0 /HPF (0-6); WBC, URINE AUTO RFX 0 /HPF (0-3)
[2017-11-09] MEDS ORDERED: HYDROmorphone HCL 1 MG/ML SYRINGE (J1170) IV (17:00)
[2017-11-09] MEDS: HYDROmorphone HCL 1 MG/ML SYRINGE (J1170) IV (17:30)
[2017-11-09] MEDS: QUEtiapine FUMARATE 100 MG TAB PO (21:11)
[2017-11-09] MEDS: traZODone 100 MG TAB PO (21:12)
[2017-11-09] MEDS: cloNIDine 0.1 MG TAB PO (21:12)
[2017-11-10] MEDS: HYDROmorphone HCL 1 MG/ML SYRINGE (J1170) IV ×3 (00:44→19:44)
[2017-11-10 05:18] LABS: HEMATOCRIT 33.4 % (42.0-52.0); HEMOGLOBIN 11.6 g/dl (13.5-17.5); MEAN CORPUSCULAR HEMOGLOBIN 32.2 pg (27.0-33.0); MEAN CORPUSCULAR HGB CONC 34.7 g/dl (32.0-36.5); MEAN CORPUSCULAR VOLUME 92.8 fl (80.0-96.0); PLATELET COUNT, AUTOMATED 182 10^3/uL (150-450); RED CELL DISTRIBUTION WIDTH 12.2 % (11.5-14.5); WHITE BLOOD COUNT 3.9 10^3/uL (4.0-10.0)
[2017-11-10 05:34] LABS: ANION GAP 5 MEQ/L (8-16); BLOOD UREA NITROGEN 3 MG/DL (7-18); CALCIUM LEVEL 8.2 MG/DL (8.5-10.1); CARBON DIOXIDE LEVEL 27 MEQ/L (21-32); CHLORIDE LEVEL 105 MEQ/L (98-107); CREATININE FOR GFR 0.87 MG/DL (0.70-1.30); GLOMERULAR FILTRATION RATE > 60.0 (>56); GLUCOSE, FASTING 84 MG/DL (70-100); POTASSIUM SERUM 3.6 MEQ/L (3.5-5.1); SODIUM LEVEL 137 MEQ/L (136-145)
[2017-11-10] MEDS: FLUTICASONE HFA 220 MCG 12 GM INHALER (FLOVENT) INH ×2 (07:44→20:05)
[2017-11-10] MEDS: GABAPENTIN 400 MG CAP PO ×3 (07:58→21:59)
[2017-11-10] MEDS: NS 1,000 ML IV ×2 (07:58→14:52)
[2017-11-10] MEDS: amLODIPine 10 MG TAB PO (07:59)
[2017-11-10] MEDS: ENOXAPARIN 40 MG/0.4 ML SYRINGE (J1650) SC (07:59)
[2017-11-10] MEDS: buPROPion **XL** TABLET 150MG (WELLBUTRIN XL) PO (07:59)
[2017-11-10] MEDS: PANTOPRAZOLE 40MG TAB (PROTONIX) PO (07:59)
[2017-11-10] MEDS: TRIUMEQ PO (09:00)
[2017-11-10 09:50] LABS: ALBUMIN 2.8 GM/DL (3.2-5.2); ALBUMIN/GLOBULIN RATIO 0.78 (1.00-1.93); ALKALINE PHOSPHATASE 98 U/L (45-117); ALT/SGPT 15 U/L (12-78); AST/SGOT 13 U/L (7-37); BILIRUBIN,DIRECT 0.2 MG/DL (0.0-0.2); BILIRUBIN,TOTAL 0.5 MG/DL (0.2-1.0); LIPASE 730 U/L (73-393); TOTAL PROTEIN 6.4 GM/DL (6.4-8.2)
[2017-11-10] MEDS: PERCOCET 5MG/325MG TAB PO ×2 (14:53→23:17)
[2017-11-10] MEDS: QUEtiapine FUMARATE 100 MG TAB PO (21:59)
[2017-11-10] MEDS: traZODone 100 MG TAB PO (21:59)
[2017-11-10] MEDS: cloNIDine 0.1 MG TAB PO (21:59)
[2017-11-10] MEDS: SENNA 8.6 MG TAB (SENOKOT) PO (23:17)
[2017-11-11] MEDS: HYDROmorphone HCL 1 MG/ML SYRINGE (J1170) IV (01:32)
[2017-11-11] MEDS: NS 1,000 ML IV ×2 (02:20→09:46)
[2017-11-11] MEDS: PERCOCET 5MG/325MG TAB PO (03:32)
[2017-11-11 05:21] LABS: HEMATOCRIT 30.6 % (42.0-52.0); HEMOGLOBIN 10.6 g/dl (13.5-17.5); MEAN CORPUSCULAR HGB CONC 34.6 g/dl (32.0-36.5); MEAN CORPUSCULAR VOLUME 92.4 fl (80.0-96.0); PLATELET COUNT, AUTOMATED 175 10^3/uL (150-450); RED BLOOD COUNT 3.31 10^6/uL (4.30-6.10); RED CELL DISTRIBUTION WIDTH 12.2 % (11.5-14.5); WHITE BLOOD COUNT 3.3 10^3/uL (4.0-10.0)
[2017-11-11 05:45] LABS: ANION GAP 5 MEQ/L (8-16); BLOOD UREA NITROGEN 5 MG/DL (7-18); CALCIUM LEVEL 8.1 MG/DL (8.5-10.1); CARBON DIOXIDE LEVEL 27 MEQ/L (21-32); CHLORIDE LEVEL 106 MEQ/L (98-107); GLOMERULAR FILTRATION RATE > 60.0 (>56); GLUCOSE, FASTING 116 MG/DL (70-100); POTASSIUM SERUM 3.8 MEQ/L (3.5-5.1); SODIUM LEVEL 138 MEQ/L (136-145)
[2017-11-11] MEDS: FLUTICASONE HFA 220 MCG 12 GM INHALER (FLOVENT) INH (07:44)
[2017-11-11] MEDS: PANTOPRAZOLE 40MG TAB (PROTONIX) PO (08:40)
[2017-11-11] MEDS: ENOXAPARIN 40 MG/0.4 ML SYRINGE (J1650) SC (08:40)
[2017-11-11] MEDS: GABAPENTIN 400 MG CAP PO ×3 (08:40→22:12)
[2017-11-11] MEDS: buPROPion **XL** TABLET 150MG (WELLBUTRIN XL) PO (08:40)
[2017-11-11] MEDS: TRIUMEQ PO (08:56)
[2017-11-11] MEDS: amLODIPine 5 MG TAB PO (09:00)
[2017-11-11] MEDS: SUCRALFATE 1 GM TAB PO (17:54)
[2017-11-11] MEDS ORDERED: SLF 3 ML SYR IV (19:00)
[2017-11-11] MEDS: QUEtiapine FUMARATE 100 MG TAB PO (22:12)
[2017-11-11] MEDS: SLF 3 ML SYR IV (22:12)
[2017-11-11] MEDS: traZODone 100 MG TAB PO (22:12)
[2017-11-12 05:31] LABS: HEMATOCRIT 30.4 % (42.0-52.0); HEMOGLOBIN 10.6 g/dl (13.5-17.5); MEAN CORPUSCULAR HEMOGLOBIN 32.5 pg (27.0-33.0); MEAN CORPUSCULAR HGB CONC 34.9 g/dl (32.0-36.5); MEAN CORPUSCULAR VOLUME 93.3 fl (80.0-96.0); PLATELET COUNT, AUTOMATED 193 10^3/uL (150-450); RED BLOOD COUNT 3.26 10^6/uL (4.30-6.10); WHITE BLOOD COUNT 4.6 10^3/uL (4.0-10.0)
[2017-11-12 05:47] LABS: ANION GAP 5 MEQ/L (8-16); BLOOD UREA NITROGEN 3 MG/DL (7-18); CALCIUM LEVEL 8.2 MG/DL (8.5-10.1); CARBON DIOXIDE LEVEL 28 MEQ/L (21-32); CHLORIDE LEVEL 106 MEQ/L (98-107); CREATININE FOR GFR 1.16 MG/DL (0.70-1.30); GLOMERULAR FILTRATION RATE > 60.0 (>56); GLUCOSE, FASTING 192 MG/DL (70-100); POTASSIUM SERUM 3.6 MEQ/L (3.5-5.1); SODIUM LEVEL 139 MEQ/L (136-145)
[2017-11-12] MEDS: SLF 3 ML SYR IV (06:47)
[2017-11-12] MEDS: FLUTICASONE HFA 220 MCG 12 GM INHALER (FLOVENT) INH ×2 (07:48)
[2017-11-12] MEDS: SUCRALFATE 1 GM TAB PO ×2 (08:19→12:46)
[2017-11-12] MEDS: GABAPENTIN 400 MG CAP PO (08:20)
[2017-11-12] MEDS: PANTOPRAZOLE 40MG TAB (PROTONIX) PO (08:20)
[2017-11-12] MEDS: amLODIPine 5 MG TAB PO (08:20)
[2017-11-12] MEDS: TRIUMEQ PO (08:20)
[2017-11-12] MEDS: buPROPion **XL** TABLET 150MG (WELLBUTRIN XL) PO (08:20)
[2017-11-12] MEDS: ENOXAPARIN 40 MG/0.4 ML SYRINGE (J1650) SC (08:20)
[2017-11-12] MEDS: ACETAMINOPHEN TAB 650MG DOSE (2X325MG) PO (12:59)
== END 2017-11-12 13:45 | disposition home or self-care (01) | DRG 282 ==
LOC: M ED 13:45 → M ED INP 18:20 → M PCU 20:55
DX: K85.20 Alcohol induced acute pancreatitis without necrosis or infection (principal); B20 Human immunodeficiency virus [HIV] disease; J44.9 Chronic obstructive pulmonary disease, unspecified; I10 Essential (primary) hypertension; F31.9 Bipolar disorder, unspecified; F17.210 Nicotine dependence, cigarettes, uncomplicated; Z79.899 Other long term (current) drug therapy; Z91.018 Allergy to other foods

== ENCOUNTER → 2017-11-13 | Outpatient (REF) | LOC: M SMT 09:35 | DX: M54.5 Low back pain (principal) ==

== ENCOUNTER → 2018-02-03 | Outpatient (REF) | payer OTHER ==
[2018-02-03 16:22] LABS: ALBUMIN/GLOBULIN RATIO 1.03 (1.00-1.93); ALKALINE PHOSPHATASE 93 U/L (45-117); ALT/SGPT 23 U/L (12-78); ANION GAP 2 MEQ/L (8-16); AST/SGOT 17 U/L (7-37); BILIRUBIN,TOTAL 0.3 MG/DL (0.2-1.0); BLOOD UREA NITROGEN 22 MG/DL (7-18); CALCIUM LEVEL 9.1 MG/DL (8.5-10.1); CARBON DIOXIDE LEVEL 30 MEQ/L (21-32); CHLORIDE LEVEL 108 MEQ/L (98-107); CHOLESTEROL LEVEL 164 MG/DL (<200); CHOLESTEROL RISK RATIO 2.309 (<5); CREATININE FOR GFR 1.25 MG/DL (0.70-1.30); GLOMERULAR FILTRATION RATE > 60.0 (>56); GLUCOSE, FASTING 130 MG/DL (70-100); HDL CHOLESTEROL 71 MG/DL (>40); NON-HDL-C 93 MG/DL; POTASSIUM SERUM 4.7 MEQ/L (3.5-5.1); SODIUM LEVEL 140 MEQ/L (136-145); TOTAL PROTEIN 7.9 GM/DL (6.4-8.2); TRIGLYCERIDES LEVEL 60 MG/DL (<150)
[2018-02-06 16:20] LABS: % CD8 Pos Lymph 31.4 % (12.0-35.5); %CD4 Pos Lymphs 49.4 % (30.8-58.5); ABS Lymphs 1.9 x10E3/uL (0.7-3.1); ABS Monocytes 0.5 x10E3/uL (0.1-0.9); ABS Neutophils 1.6 x10E3/uL (1.4-7.0); Abs CD4 Helper 939 /uL (359-1519); Abs CD8 Suppres 597 /uL (109-897); CD4/CD8 Ratio 1.57 (0.92-3.72); Eosinophils 1 % (Not Estab.); HCT 39.2 % (37.5-51.0); HIV-1 RNA PCR QUANT 2 LC550285 <20 copies/mL (.); Immature Grans 0 % (Not Estab.); Lymphocytes 46 % (Not Estab.); MCH 31.6 pg (26.6-33.0); MCHC 33.2 g/dL (31.5-35.7); MCV 95 fL (79-97); Monocytes 12 % (Not Estab.); Neutrophils 41 % (Not Estab.); Platelets 247 x10E3/uL (150-379); RBC 4.11 x10E6/uL (4.14-5.80); RDW 14.6 % (12.3-15.4); WBC 4.1 x10E3/uL (3.4-10.8)
== END ==
LOC: M SFHCPLAZ 11:27
DX: B20 Human immunodeficiency virus [HIV] disease (principal); E78.00 Pure hypercholesterolemia, unspecified
CPT/HCPCS: 80053

== ENCOUNTER → 2018-08-19 | Outpatient (REF) | payer OTHER ==
[~2018-08-19] MED LIST changes: +/ADVA50050 IN; +/AMLO25TA PO; +/CLON1TA PO; +/MOXI40TA PO; +/QUET10TA OR; +/SUCR1TA OR; +/THIA10TA; +/THIA10TA OR; +ALBU17IN INH; +ALBU17IN2 INH; +ASMA220A2 IN; +ASMA220A2 INH; +ASPI325T PO; +ATEN50TA2 PO; +ATENPOW PO; +ATOR40TA75 PO; +ATRIPLA OR; +ATRIPLA PO; +BIAX500T; +BUPR150T3 PO; +BUPR15TA PO; +BUPR300T34 PO; +BUPR75TA5 PO; +CATA0.3T; +CLON-412 PO; +CLON0.2T OR; +DESYREL; +DILA2TAB OR; +DULE200A INH; +FOLI1TAB; +FOLI1TAB OR; +FOLI1TAB86 PO; +FOLI5INJ2 PO; +GABA-845 PO; +HALO5TA PO; +HIV MED PO; +HYDR-643 PO; +IBUP-1022 PO; +IBUP1TAB6 PO; +IBUP1TAB7 PO; -MAALOX 30 ML SUSP *UDC PO; +MELA1CAP2 PO; +MIRT30TA3 PO; +MIRT45TA4 PO; -MOM 30ML SUSPENSION UDC PO; +MUCI600T34 PO; +MULTIVIT PO; +Magnesium Oxide PO; +NICO14PA TD; +NICO21DI4 TD; +NICO21DI6 TD; +NORV5TAB OR; +NORV5TAB PO; +NYSTATIN ORAL OR; +NYSTATIN ORAL PO; +OMEP40CA2 PO; +PANT40TA3 PO; +PAXI20TA OR; +PERC5TAB12 PO; +PERC5TAB8; +PERC5TAB8 OR; +PERCOCET PO; +PRIL40CA OR; +PROT1TAB2 PO; +QUET1TAB10 PO; +SENN1TAB10 PO; +SENN1TAB2 PO; +SENN8.6C PO; +SERO1TAB2 PO; +SERO200T PO; +SUCR1TA PO; +SUCR1TAB56 PO; +TENO50TA PO; +THERGRAN PO; +TRAZ-163 PO; +TRAZ10TA PO; +TRIU1TAB PO; +TYLE325T5 PO; +VITA100T2 PO; +VITA100T60 PO; +VITACHTA PO; +WELL100T OR; +WELL100T PO; +WELL150T PO; +WELL75TA PO; +ZANT150T; +ZANT150T OR; +ZOFR4SOL PO; +ZOFR4TAB16 PO; +ZOFR8TAB24 PO; +ZOLO100T PO; +albuterol inhaler INH; +clonidine PO
[2018-08-19 14:24] LABS: HEMOGLOBIN A1c 8.1 %
[2018-08-19 14:35] LABS: ALBUMIN 3.4 GM/DL (3.2-5.2); ALT/SGPT 30 U/L (12-78); BILIRUBIN,TOTAL 0.2 MG/DL (0.2-1.0); BLOOD UREA NITROGEN 15 MG/DL (7-18); CALCIUM LEVEL 8.9 MG/DL (8.5-10.1); CARBON DIOXIDE LEVEL 26 MEQ/L (21-32); CHLORIDE LEVEL 104 MEQ/L (98-107); CHOLESTEROL LEVEL 191 MG/DL (<200); CHOLESTEROL RISK RATIO 3.293 (<5); CREATININE FOR GFR 1.59 MG/DL (0.70-1.30); GLOMERULAR FILTRATION RATE 59.3 (>56); GLUCOSE, FASTING 149 MG/DL (70-100); HDL CHOLESTEROL 58 MG/DL (>40); LDL CHOLESTEROL 96 MG/DL (<100); NON-HDL-C 133 MG/DL; POTASSIUM SERUM 4.4 MEQ/L (3.5-5.1); SODIUM LEVEL 138 MEQ/L (136-145); TOTAL PROTEIN 7.4 GM/DL (6.4-8.2); TRIGLYCERIDES LEVEL 183 MG/DL (<150)
[2018-08-22 00:06] LABS: % CD8 Pos Lymph 29.9 % (12.0-35.5); %CD4 Pos Lymphs 47.6 % (30.8-58.5); ABS Eosinophils 0.1 x10E3/uL (0.0-0.4); ABS Lymphs 1.7 x10E3/uL (0.7-3.1); ABS Monocytes 0.4 x10E3/uL (0.1-0.9); ABS Neutophils 1.4 x10E3/uL (1.4-7.0); Abs CD4 Helper 809 /uL (359-1519); Abs CD8 Suppres 508 /uL (109-897); CD4/CD8 Ratio 1.59 (0.92-3.72); Eosinophils 2 % (Not Estab.); HCT 37.5 % (37.5-51.0); HGB 12.7 g/dL (13.0-17.7); HIV-1 RNA PCR QUANT 2 LC550285 <20 copies/mL (.); Immature Grans 0 % (Not Estab.); Lymphocytes 46 % (Not Estab.); MCH 29.3 pg (26.6-33.0); MCHC 33.9 g/dL (31.5-35.7); MCV 87 fL (79-97); Monocytes 12 % (Not Estab.); Neutrophils 39 % (Not Estab.); Platelets 303 x10E3/uL (150-379); RBC 4.33 x10E6/uL (4.14-5.80); RDW 13.7 % (12.3-15.4); TESTOSTERONE FREE (DIRECT) 12.3 pg/mL (7.2-24.0); WBC 3.7 x10E3/uL (3.4-10.8)
== END ==
LOC: M LABDRAW1 11:43
PROVIDERS: ATTEND Internal Medicine Infectious Disease
DX: B20 Human immunodeficiency virus [HIV] disease (principal); E78.00 Pure hypercholesterolemia, unspecified

== ENCOUNTER → 2018-08-20 | Outpatient (REF) | payer OTHER ==
[2018-08-20 14:58] LABS: APPEARANCE, URINE CLEAR (CLEAR); BACTERIA, URINE AUTO NEGATIVE (NEGATIVE); BILIRUBIN, URINE AUTO NEGATIVE (NEGATIVE); BLOOD, URINE BLOOD NEGATIVE (NEGATIVE); COLOR, URINE YELLOW (YELLOW); GLUCOSE, URINE (UA) AUTO NEGATIVE (NEGATIVE); KETONE, URINE AUTO NEGATIVE (NEGATIVE); LEUKOCYTE ESTERASE, URINE AUTO NEGATIVE (NEGATIVE); MUCUS, URINE SMALL (NEGATIVE); NITRITE, URINE AUTO NEGATIVE (NEGATIVE); PROTEIN, URINE AUTO NEGATIVE (NEGATIVE); RBC, URINE AUTO 1 /HPF (0-3); SPECIFIC GRAVITY URINE AUTO 1.026 (1.002-1.035); SQUAMOUS EPITHELIAL CELL UR AU 0 /HPF (0-6); UROBILINOGEN, URINE AUTO 0.2 mg/dL (0.0-2.0); WBC, URINE AUTO 1 /HPF (0-3)
[2018-08-20 15:31] LABS: MALB URINE SIEMENS 9.7 MG/L; MAU/CREAT RATIO 3.1 MCG/MG (0.0-30.0)
[2018-08-20 16:32] LABS: CHLAMYDIA DNA AMPLIFICATION NEGATIVE (NEGATIVE); GC DNA AMPLIFICATION NEGATIVE (NEGATIVE)
== END ==
LOC: M SFHCPLAZ 14:20
PROVIDERS: ATTEND Internal Medicine Infectious Disease
DX: B20 Human immunodeficiency virus [HIV] disease (principal)

== ENCOUNTER 2018-10-13 09:47 | Inpatient (IN) | payer OTHER ==
[~2018-10-13] VITALS: Ht 175.3 cm; Wt 67.1 kg
[2018-10-13] MEDS ORDERED: RAMI1CAP21 PO (10:05)
[2018-10-13] MEDS ORDERED: DOCU240C9 PO (10:05)
[2018-10-13] MEDS ORDERED: CLONI1TA PO (10:05)
[2018-10-13 10:13] LABS: BASO % 0.6 % (0.0-1.0); EOS # 0.1 10^3/uL (0.0-0.50); EOS % 1.7 % (0.0-3.0); HEMATOCRIT 39.9 % (42.0-52.0); HEMOGLOBIN 13.2 g/dl (13.5-17.5); LYMPH # 1.9 10^3/uL (1.5-4.5); LYMPH % 35.4 % (24.0-44.0); MEAN CORPUSCULAR HEMOGLOBIN 30.1 pg (27.0-33.0); MEAN CORPUSCULAR HGB CONC 33.1 g/dl (32.0-36.5); MEAN CORPUSCULAR VOLUME 91.1 fl (80.0-96.0); MONO # 0.7 10^3/uL (0.0-0.8); MONO % 13.8 % (0.0-5.0); NEUTROPHILS # 2.6 10^3/uL (1.8-7.7); NEUTROPHILS % 48.3 % (36.0-66.0); PLATELET COUNT, AUTOMATED 197 10^3/uL (150-450); RED BLOOD COUNT 4.38 10^6/uL (4.30-6.10); WHITE BLOOD COUNT 5.4 10^3/uL (4.0-10.0)
[2018-10-13] MEDS ORDERED: NS 1,000 ML IV ONE ×2 (10:15→11:30)
[2018-10-13 10:56] LABS: ALBUMIN 3.6 GM/DL (3.2-5.2); ALT/SGPT 34 U/L (12-78); BILIRUBIN,DIRECT 0.3 MG/DL (0.0-0.2); BILIRUBIN,TOTAL 0.9 MG/DL (0.2-1.0); BLOOD UREA NITROGEN 16 MG/DL (7-18); CALCIUM LEVEL 8.4 MG/DL (8.5-10.1); CARBON DIOXIDE LEVEL 27 MEQ/L (21-32); CHLORIDE LEVEL 105 MEQ/L (98-107); CREATININE FOR GFR 1.68 MG/DL (0.70-1.30); ETHYL ALCOHOL (ETHANOL) < 0.003 % (0.000-0.010); GLOMERULAR FILTRATION RATE 55.6 (>56); GLUCOSE, FASTING 261 MG/DL (70-100); LIPASE 2224 U/L (73-393); POTASSIUM SERUM 3.4 MEQ/L (3.5-5.1); SODIUM LEVEL 140 MEQ/L (136-145); TOTAL PROTEIN 7.8 GM/DL (6.4-8.2)
[2018-10-13] MEDS ORDERED: PANTOPRAZOLE 40MG INJ (PROTONIX) (C9113) IV ONE (11:00)
[2018-10-13] MEDS ORDERED: ONDANSETRON 4MG/2ML VIAL (J2405) IV ONE (11:30)
[2018-10-13] MEDS: MORPHINE 4 MG/ML 1ML VIAL/SYRINGE (J2270) IV PRN ×4 (11:56→21:30)
--- NOTE | 2018-10-13 12:15 | REP ---
CT ABDOMEN AND PELVIS WITHOUT IV OR ORAL CONTRAST: HISTORY: Pancreatitis. COMPARISON CT STUDY: November 08, 2017 CT FINDINGS: Preliminary digital airplane first officer radiograph demonstrates an unremarkable bowel gas pattern. The lung bases show discoid atelectasis bilaterally, right more so than left. No pleural effusion is seen. The liver and the spleen are normal in size, homogeneous in texture. The gallbladder is unremarkable by CT. There is evidence consistent with pancreatitis with peripancreatic fat streaking similar to the appearance seen on November 08, 2017. No defined fluid collection is seen. The main pancreatic duct is somewhat dilated measuring up to 5 mm. This is unchanged as well. There are chronic pancreatitis calcifications in the uncinate lobe of the head of the pancreas as before. No evidence of hematoma or abscess is seen. No hydronephrosis or renal lesion is observed. No adrenal abnormality is observed. Small and large bowel loops are unremarkable. Normal appendix is seen. Seminal vesicles, prostate, and urinary bladder are unremarkable. Bone window settings demonstrate what appears to be old posttraumatic deformity at the symphysis pubis and subcortical cyst formation at the hips. No acute bony abnormality. IMPRESSION: Peripancreatic fat streaking consistent with acute pancreatitis. Somewhat dilated main pancreatic duct, unchanged from comparison study. Chronic pancreatitis-type calcifications in the pancreatic head. No CT evidence of gallstone. Otherwise negative. Platelike atelectasis in the lung bases. Electronically Signed by Alex Marie MD 10/13/2018 07:44 P
[2018-10-13] MEDS ORDERED: VENTAER INH (12:59)
[2018-10-13] MEDS ORDERED: RAMI1CAP24 PO (12:59)
[2018-10-13] MEDS ORDERED: TRAZ-163 PO (12:59)
[2018-10-13] MEDS ORDERED: FLOM0.4C39 PO (13:04)
[2018-10-13] MEDS ORDERED: SUCR1TA PO (13:04)
[2018-10-13] MEDS ORDERED: IBUP-1022 PO (13:04)
[2018-10-13] MEDS ORDERED: ZOFR4TAB16 PO (13:04)
[2018-10-13] MEDS ORDERED: BREO1INH INH (13:04)
[2018-10-13] MEDS ORDERED: BASA100I SC (13:04)
[2018-10-13] MEDS ORDERED: ADME100I2 SC (13:04)
[2018-10-13] MEDS ORDERED: ATOR40TA75 PO (13:04)
[2018-10-13] MEDS ORDERED: PRAZ1CAP PO (13:04)
[2018-10-13] MEDS ORDERED: ONDANSETRON 4 MG TAB (S0181) PO PRN (15:30)
[2018-10-13] MEDS ORDERED: ALBUTEROL 90 MCG/ACT 8GM HFA INHALER INH PRN (15:30)
[2018-10-13] MEDS: NS 1,000 ML IV SCH ×2 (16:38→21:05)
--- NOTE | 2018-10-13 19:18 | HPEPDOC ---
[facility] Medical History & Physical Date of Admission Oct 13, 2018 Attending Physician: THIEN CROCKETT MD History and Physical CHIEF COMPLAINT: Abdominal pain HISTORY OF PRESENT ILLNESS: Patient is a 52-year-old male with a past medical history significant for HIV, hypertension, chronic obstructive pulmonary disease, recurrent alcoholic pancreatitis, history of alcohol abuse, bipolar disorder, history of suicidal ideation and attempt who presented to the [facility] emergency department with complaint of epigastric pain. Patient stated that this past weekend. His girlfriend had broken up with him. He states that at that time he became depressed and started drinking. He states that before this he had been sober for 10 months. He states that he drank 4-5 drinks. He defines a drink as approximately 3-4 shots of vodka per drink. He stated the next day he developed some nausea as well as abdominal pain which has progressed and gotten worse until today. He states that he is unable to tolerate any food as it makes him nauseous. He states that he does have a history of pancreatitis and this feels similar to his previous episodes. Additionally, the patient states that he has been feeling depressed ever since his girlfriend had broken up with him. He states that he had attempted to consume an entire bottle of Seroquel and trazodone. However, he states that he threw up the medication immediately. He does continue to admit to suicidal ideation. He states that he has attempted to commit suicide in the past and is seen by mental health. In the ER the patient received IV fluids and pain medications. He was made NPO. The patient received CT imaging which showed peripancreatic fat streaking consistent with acute pancreatitis, dilated main pancreatic duct, chronic pancreatitis-type calcifications in the pancreatic head. Additionally, he received a liver U/S which demonstrated hepatomegaly and diffuse fatty infiltration of the liver with a small trace amount of ascites PAST MEDICAL HISTORY: 1. HIV adherent to treatment 2. COPD 3. Hypertension 4. Alcohol Abuse 5. Chronic pancreatitis 2/2 Alcohol 6. Bipolar Disorder 7. HX of Suicidal ideation and attempt PAST SURGICAL HISTORY: 1. Right knee surgery SOCIAL HISTORY: Current smoker. Smokes approximately 1/2 pack per day. History of alcohol abuse. Has been sober for 10 months with recent relapse 4-5 days ago FAMILY HISTORY: Noncontributory ALLERGIES: Please see below. REVIEW OF SYSTEMS: CONSTITUTIONAL: Denies fevers, chills, unintentional weight loss or weight gain. Denies night sweats HEENT: Denies dysphagia. Denies cough CARDIOVASCULAR: Denies chest pain, palpitations, or feelings of the heart racing RESPIRATORY: Denies shortness of breath. Denies wheezing GASTROINTESTINAL: Admits to abdominal pain. Denies diarrhea. Admits to nausea and vomiting GENITOURINARY: Denies dysuria. Denies increased frequency SKIN: Denies rashes or lesions NEUROLOGICAL: Denies changes in gait or speech PSYCHIATRIC: Admits to depression and suicidal ideation ENDOCRINE: Denies heat or cold intolerance HEMATOLOGIC/LYMPHATIC: Denies easy bruising or bleeding HOME MEDICATIONS: Please see below. PHYSICAL EXAMINATION: VITAL SIGNS: Temperature 97.4, pulse 51, respiratory rate 18, blood pressure 164/79, pulse oximetry 98% on room air. GENERAL APPEARANCE: Patient is awake alert and oriented. He appears in no acute distress. He is laying in bed HEENT: Atraumatic normocephalic. Eyes are non-icteric. Trachea is midline. Mucous membranes appear dry. Angular stomatitis CARDIOVASCULAR: Normal S1, S2. Regular rate and rhythm. No clicks, rubs, or murmurs LUNGS: Clear to auscultation bilaterally. No wheezes, rhonci, or rales ABDOMEN: Tenderness to palpation diffusely. No rebound tenderness or guarding. Positive bowel sounds EXTREMITIES: No edema. Full and equal pulses bilaterally in upper and lower extremities NEUROLOGICAL: No focal neurological deficits PSYCHIATRIC: Patient does admit to suicidal ideation. LABORATORY DATA: See below. IMAGING: CT ABDOMEN AND PELVIS WITHOUT IV OR ORAL CONTRAST: HISTORY: Pancreatitis. COMPARISON CT STUDY: November 08, 2017 CT FINDINGS: Preliminary digital circus performer radiograph demonstrates an unremarkable bowel gas pattern. The lung bases show discoid atelectasis bilaterally, right more so than left. No pleural effusion is seen. The liver and the spleen are normal in size, homogeneous in texture. The gallbladder is unremarkable by CT. There is evidence consistent with pancreatitis with peripancreatic fat streaking similar to the appearance seen on November 08, 2017. No defined fluid collection is seen. The main pancreatic duct is somewhat dilated measuring up to 5 mm. This is unchanged as well. There are chronic pancreatitis calcifications in the uncinate lobe of the head of the pancreas as before. No evidence of hematoma or abscess is seen. No hydronephrosis or renal lesion is observed. No adrenal abnormality is observed. Small and large bowel loops are unremarkable. Normal appendix is seen. Seminal vesicles, prostate, and urinary bladder are unremarkable. Bone window settings demonstrate what appears to be old posttraumatic deformity at the symphysis pubis and subcortical cyst formation at the hips. No acute bony abnormality. IMPRESSION: Peripancreatic fat streaking consistent with acute pancreatitis. Somewhat dilated main pancreatic duct, unchanged from comparison study. Chronic pancreatitis-type calcifications in the pancreatic head. No CT evidence of gallstone. Otherwise negative. Platelike atelectasis in the lung bases. MICROBIOLOGY: Please see below. ASSESSMENT: Patient is a 52 year old male with a past medical history significant for HIV, COPD, HTN, bipolar disorder, alcohol abuse, suicidal ideat ion and attempt who presented to the ED with abdominal pain. He was found to have acute pancreatitis likely secondary to alcohol use . PLAN: 1. Acute on chronic Alcoholic Pancreatitis -Patient has a history of alcoholic pancreatitis. He has recently had an episode of binge drinking. -IV fluids -NPO status w/ exception to medications -IV morphine for pain control 2. Alcohol Abuse -Patient states that he has been sober for 10 months and only recently drank 4-5 days ago after breaking up with his girlfriend -CIWA protocol 3. Suicidal Ideation -Patient has voiced suicidal ideation and has a history of attempts. He states that he had tried to consume a bottle of his seroquel and trazodone but was unable to due to his nausea and vomiting. -Suicide precautions -Psychiatry consult once medically improving 4. HIV -Patient is HIV positive. He follows with Dr. Moya. He is currently on Triumeq and states he is adherent to his medication -Pharmacy does not stock this medication patient will try to get medication brought in from home 5. COPD -Currently stable. Respiratory orders PRN 6. Hypertension -Continue home medications 7. DMII -Currently NPO. Sliding scale insulin coverage 8. DVT prophylaxis -Heparin SQ Vital Signs Vital Signs Date Time Temp Pulse Resp B/P (MAP) Pulse Ox O2 Delivery O2 Flow Rate FiO2 10/13/18 17:45 97.4 51 18 164/79 98 10/13/18 14:45 Room Air Laboratory Data Labs 24H Laboratory Tests 2 10/13/18 10:06: Immature Granulocyte % (Auto) 0.2, White Blood Count 5.4, Red Blood Count 4.38, Hemoglobin 13.2L, Hematocrit 39.9L, Mean Corpuscular Volume 91.1, Mean Corpuscular Hemoglobin 30.1, Mean Corpuscular Hemoglobin Concent 33.1, Red Cell Distribution Width 15.5H, Platelet Count 197, Neutrophils (%) (Auto) 48.3, L ymphocytes (%) (Auto) 35.4, Monocytes (%) (Auto) 13.8H, Eosinophils (%) (Auto) 1.7, Basophils (%) (Auto) 0.6, Neutrophils # (Auto) 2.6, Lymphocytes # (Auto) 1.9, Monocytes # (Auto) 0.7, Eosinophils # (Auto) 0.1, Basophils # (Auto) 0.0, Nucleated Red Blood Cells % (auto) 0.0, Anion Gap 8, Glomerular Filtration Rate 55.6L, Lactic Acid Level 1.9, Calcium Level 8.4L, Aspartate Amino Transf (AST/SGOT) 35, Alanine Aminotransferase (ALT/SGPT) 34, Alkaline Phosphatase 118H, Total Bilirubin 0.9, Direct Bilirubin 0.3H, Total Protein 7.8, Albumin 3.6, Albumin/Globulin Ratio 0.86L, Lipase 2224H, Ethyl Alcohol Level < 0.003 CBC/BMP Laboratory Tests 10/13/18 10:06 Red Blood Count 4.38, Mean Corpuscular Volume 91.1, Mean Corpuscular Hemoglobin 30.1, Mean Corpuscular Hemoglobin Concent 33.1, Red Cell Distribution Width 15.5 H, Neutrophils (%) (Auto) 48.3, Lymphocytes (%) (Auto) 35.4, Monocytes (%) (Auto) 13.8 H, Eosinophils (%) (Auto) 1.7, Basophils (%) (Auto) 0.6, Neutrophils # (Auto) 2.6, Lymphocytes # (Auto) 1.9, Monocytes # (Auto) 0.7, Eosinophils # (Auto) 0.1, Basophils # (Auto) 0.0 Microbiology Microbiology 10/13/18 Blood Culture, Received Pending 10/13/18 Blood Culture, Received Pending Home Medications Scheduled (Asmanex 60 Metered Doses) 220 Mcg/Inh Aer, 1 PUFF INH QAM for SHORTNESS OF BREATH (Triumeq 600-50-300 mg) 1 Tab Tab, 1 TAB PO DAILY for (Admelog Solostar) 100 Unit/Ml Inj, 1 DOSE SC TID for PER SLIDING SCALE (Basaglar Kwikpen) 100 Unit/Ml Inj, 18 UNIT SC DAILY for Atorvastatin Calcium (Atorvastatin Calcium) 40 Mg Tab, 40 MG PO DAILY for Bupropion HCl (Bupropion HCl Xl) 300 Mg Tab, 300 MG PO DAILY for Clonidine Hcl (Catapres) 0.1 Mg Tab, 0.1 MG PO QPM for Docusate Calcium (Docusate Calcium) 240 Mg Cap, 240 MG PO QHS for Fluticasone/Vilanterol (Breo Ellipta 100-25 Mcg/INH) 1 Inh Inh, 1 PUFF INH DAILY for Gabapentin (Gabapentin) 400 Mg Cap, 400 MG PO TID for Nystatin (Nystatin Oral Susp) 5 Ml Susp, 5 ML SS QID for thrush Pantoprazole Sodium (Pantoprazole Sodium) 40 Mg Tab, 40 MG PO DAILY for HEARTBURN Prazosin Hcl (Prazosin HCl) 1 Mg Cap, 3 MG PO QHS for Quetiapine Fumerate (Quetiapine Fumarate) 300 Mg Tab, 300 MG PO QHS for Ramipril (Ramipril) 5 Mg Cap, 5 MG PO DAILY for Sucralfate (Carafate) 1 Gm Tab, 1 GM PO BID for PATIENT STATES HE CAN NOT SWALLOW THESE PILLS, WOULD LIKE THE LIQUID FORM Tamsulosin Hydrochloride (Flomax) 0.4 Mg Cap, 0.4 MG PO DAILY for Trazodone HCl (Trazodone HCl) 100 Mg Tab, 200 MG PO QHS for Scheduled PRN Albuterol Sulfate (Ventolin Hfa) 108 Mcg/Act Aer, 2 PUFF INH Q4H PRN for SHORTNESS OF BREATH Emollient Ointment (Aquaphor) 1 Dose/100 Gm Oint, 1 DOSE TOP Q6HP PRN for SYMPTOM RELIEF Ibuprofen (Ibuprofen) 600 Mg Tab, 600 MG PO BID PRN for PAIN Ondansetron HCl (Zofran) 4 Mg Tab, 4 MG PO DAILY PRN for NAUSEA Allergies Coded Allergies: Banana (Verified Allergy, Intermediate, HIVES, 10/28/12) Attending Note I have both independently examined this patient as well as reviewed the H&P. I have discussed in detail with the resident the findings and plan of treatment as documented in the resident's note GME ATTESTATION GME ATTESTATION My faculty preceptor for this patient encounter was physically present during the encounter and was fully available. All aspects of the patient interview, examination, medical decision making process, and medical care plan development were reviewed and approved by the faculty preceptor. The faculty preceptor is aware and concurs with the plan as stated in the body of this note and will attest to such by his/her cosignature. OLEKSANDR SUMMERS DO Oct 13, 2018 19:18 ESTER HACKETT MD Oct 19, 2018 16:50
[2018-10-13] MEDS: SUCRALFATE 1 GM TAB PO SCH (21:00)
[2018-10-13] MEDS: cloNIDine 0.1 MG TAB PO SCH (21:00)
[2018-10-13] MEDS: QUEtiapine FUMARATE 100 MG TAB PO SCH (21:05)
[2018-10-13] MEDS: traZODone 100 MG TAB PO SCH (21:05)
[2018-10-13] MEDS: HEPARIN SOD (PORCINE) 5000 UNITS/ML VIAL SC SCH (21:05)
[2018-10-14 00:10] VITALS: BP 177/88
[2018-10-14] MEDS ORDERED: GLUCOSE 4 GM CHEW TABLET PO PRN (00:45)
[2018-10-14] MEDS ORDERED: DEXTROSE 50% 50 ML SYRINGE IV PRN (00:45)
[2018-10-14] MEDS ORDERED: GLUCAGON FOR INJ 1 MG VIAL (J1610) SC PRN (00:45)
[2018-10-14] MEDS: MORPHINE 4 MG/ML 1ML VIAL/SYRINGE (J2270) IV PRN ×4 (01:58→18:50)
[2018-10-14 06:00] VITALS: BP 152/80
[2018-10-14 06:11] LABS: BASO % 0.2 % (0.0-1.0); EOS # 0.1 10^3/uL (0.0-0.50); EOS % 1.3 % (0.0-3.0); HEMATOCRIT 34.6 % (42.0-52.0); HEMOGLOBIN 11.3 g/dl (13.5-17.5); LYMPH % 21.8 % (24.0-44.0); MEAN CORPUSCULAR HEMOGLOBIN 29.8 pg (27.0-33.0); MEAN CORPUSCULAR HGB CONC 32.7 g/dl (32.0-36.5); MEAN CORPUSCULAR VOLUME 91.3 fl (80.0-96.0); MONO # 0.4 10^3/uL (0.0-0.8); MONO % 8.5 % (0.0-5.0); NEUTROPHILS % 67.8 % (36.0-66.0); PLATELET COUNT, AUTOMATED 171 10^3/uL (150-450); RED BLOOD COUNT 3.79 10^6/uL (4.30-6.10); WHITE BLOOD COUNT 4.5 10^3/uL (4.0-10.0)
[2018-10-14] MEDS: HEPARIN SOD (PORCINE) 5000 UNITS/ML VIAL SC SCH ×3 (06:15→20:32)
[2018-10-14] MEDS: NS 1,000 ML IV SCH ×3 (06:15→20:00)
[2018-10-14] MEDS: HumaLOG INSULIN (NovoLOG) PER UNIT SC SCH ×4 (06:19→18:00)
[2018-10-14 06:35] LABS: BLOOD UREA NITROGEN 10 MG/DL (7-18); CALCIUM LEVEL 7.5 MG/DL (8.5-10.1); CARBON DIOXIDE LEVEL 25 MEQ/L (21-32); CHLORIDE LEVEL 111 MEQ/L (98-107); CREATININE FOR GFR 1.29 MG/DL (0.70-1.30); GLOMERULAR FILTRATION RATE > 60.0 (>56); GLUCOSE, FASTING 108 MG/DL (70-100); LIPASE 611 U/L (73-393); POTASSIUM SERUM 3.8 MEQ/L (3.5-5.1); SODIUM LEVEL 142 MEQ/L (136-145)
[2018-10-14] MEDS: TRIUMEQ PO SCH (09:00)
[2018-10-14] MEDS ORDERED: NYSTATIN 500,000 U/5 ML SUSP UDC SS SCH (09:00)
[2018-10-14] MEDS: PANTOPRAZOLE 40MG TAB (PROTONIX) PO SCH (09:01)
[2018-10-14] MEDS: TAMSULOSIN 0.4 MG CAP PO SCH (09:01)
[2018-10-14] MEDS: SUCRALFATE 1 GM TAB PO SCH ×2 (09:01→20:30)
[2018-10-14] MEDS: ATORVASTATIN 20 MG TAB PO SCH (09:01)
[2018-10-14] MEDS: buPROPion **XL** TABLET 150MG (WELLBUTRIN XL) PO SCH (09:08)
[2018-10-14] MEDS ORDERED: AQUAPHOR **100GM** OINT TOP PRN (11:00)
--- NOTE | 2018-10-14 11:17 | IPNPDOC ---
Date Seen The patient was seen on 10/14/18. Progress Note SUBJECTIVE: Patient was seen and examined this morning. He currently continues complaining of abdominal pain. He does complains of a dry mouth, throat as well as pain in the corner of his mouth. He doesn't some nausea. There is not any vomiting. Denies any diarrhea or constipation. Denies any chest pain or shortness of breath. OBJECTIVE PHYSICAL EXAMINATION: VITAL SIGNS: Please see below. GENERAL: Patient is awake, alert and oriented. He is lying in bed. He appears in no acute distress HEENT:. Atraumatic, normocephalic. Eyes nonicteric. Trachea is midline. Mucous membranes do appear dry. He does have dry lips and possible angular stomatitis. CARDIOVASCULAR: Normal S1, S2, regular rate and rhythm. No clicks, rubs or murmurs. RESPIRATORY: Clear to auscultation bilaterally. No wheezes, rhonchi or rales. ABDOMINAL: Nondistended. Tenderness to palpation in all 4 quadrants. No rebound tenderness or guarding. Positive bowel sounds throughout EXTREMITIES:. Equal pulses in upper and lower extremities bilaterally. No edema NEUROLOGICAL:. No focal neurological deficits noted PSYCHOLOGICAL:. Mood and affect appear appropriate today LABORATORY DATA, IMAGING STUDIES, MICROBIOLOGY: Please see below. DVT prophylaxis ordered?: YES ASSESSMENT AND PLAN: Patient is a 60-year-old male with a past medical history significant for HIV, COPD, alcohol abuse, chronic alcoholic pancreatitis, depr ession and suicidal ideation and attempt who presented to [facility] emergency department yesterday with abdominal pain with nausea and vomiting. Patient received CT imaging and laboratory studies, which revealed a likely acute pancreatitis secondary to the patient's alcohol use. Patient was admitted and given IV fluid hydration, pain medications and made nothing by mouth status. PROBLEMS: 1.. Acute on chronic alcoholic pancreatitis. -Patient has a history of alcohol pancreatitis. He has recently had an episode of binge drinking. He does continue to complain of pain today. He has been receiving IV morphine for pain control. -We'll continue with IV fluid hydration. The patient does appear somewhat dry. He'll remain nothing by mouth status with exception to medications. Once his pain improves, we will transition him to a diet and start by mouth pain medications. 2.Angular Chelitis/stomatitis -Patient has been given Aquaphor prn 3. Alcohol abuse. -Patient appears stated that he was over 10 months and only recently drank 4- 5 days agoregular with his girlfriend. -Patient is on CIWA protocol 4. Suicidal ideation -In the emergency department, the patient had voiced suicidal ideation and stated that he has a history of attempts. He has stated that he attempted to consume a bottle of Seroquel and trazodone yesterday but was unable to because he was nauseous and vomiting secondary to his pancreatitis. -Patient placed on suicide precautions. Will likely need a psychiatry consult once cleared medically. 5. HIV -Patient is HIV positive. He follows with Dr. Moya. He is currently on Triumeq and states he is adherent to his medication -Pharmacy does not stock this medication patient will try to get medication brought in from home 6. COPD -Currently stable. Respiratory orders PRN 7. Hypertension -Continue home medications 8. DMII -Currently NPO. Sliding scale insulin coverage 9. DVT prophylaxis -Heparin SQ VS, I&O, 24H, Fishbone Vital Signs/I&O Vital Signs Date Time Temp Pulse Resp B/P (MAP) Pulse Ox O2 Delivery O2 Flow Rate FiO2 10/14/18 06:25 16 10/14/18 06:00 98.0 69 152/80 (104) 93 10/13/18 14:45 Room Air I&O- Last 24 Hours up to 6 AM 10/14/18 06:00 Intake Total 3000 ml Output Total 450 ml Balance 2550 ml Laboratory Data 24H LABS Laboratory Tests 2 10/14/18 00:27: Bedside Glucose (Misc Panel) 94 10/14/18 05:28: Immature Granulocyte % (Auto) 0.4, White Blood Count 4.5, Red Blood Count 3.79L, Hemoglobin 11.3L, Hematocrit 34.6L, Mean Corpuscular Volume 91.3, Mean Corpuscular Hemoglobin 29.8, Mean Corpuscular Hemoglobin Concent 32.7, Red Cell Distribution Width 15.3H, Platelet Count 171, Neutrophils (%) (Auto) 67.8H, Lymphocytes (%) (Auto) 21.8L, Monocytes (%) (Auto) 8.5H, Eosinophils (%) (Auto) 1.3, Basophils (%) (Auto) 0.2, Neutrophils # (Auto) 3.0, Lymphocytes # (Auto) 1.0L, Monocytes # (Auto) 0.4, Eosinophils # (Auto) 0.1, Basophils # (Auto) 0.0, Nucleated Red Blood Cells % (auto) 0.0, Anion Gap 6L, Glomerular Filtration Rate > 60.0, Blood Urea Nitrogen 10, Creatinine 1.29, Sodium Level 142, Potassium Level 3.8, Chloride Level 111H, Carbon Dioxide Level 25, Calcium Level 7.5L, Lipase 611H 10/14/18 06:09: Bedside Glucose (Misc Panel) 111H CBC/BMP Laboratory Tests 10/14/18 05:28 Red Blood Count 3.79 L, Mean Corpuscular Volume 91.3, Mean Corpuscular Hemoglobin 29.8, Mean Corpuscular Hemoglobin Concent 32.7, Red Cell Distribution Width 15.3 H, Neutrophils (%) (Auto) 67.8 H, Lymphocytes (%) (Auto) 21.8 L, Monocytes (%) (Auto) 8.5 H, Eosinophils (%) (Auto) 1.3, Basophils (%) (Auto) 0.2, Neutrophils # (Auto) 3.0, Lymphocytes # (Auto) 1.0 L, Monocytes # (Auto) 0.4, Eosinophils # (Auto) 0.1, Basophils # (Auto) 0.0, Calcium Level 7.5 L Microbiology Microbiology 10/13/18 Blood Culture - Preliminary, Resulted No growth after 24 hours . All specim... 10/13/18 Blood Culture - Preliminary, Resulted No growth after 24 hours . All specim... GME ATTESTATION GME ATTESTATION My faculty preceptor for this patient encounter was physically present during the encounter and was fully available. All aspects of the patient interview, examination, medical decision making process, and medical care plan development were reviewed and approved by the faculty preceptor. The faculty preceptor is aware and concurs with the plan as stated in the body of this note and will attest to such by his/her cosignature. OLEKSANDR SUMMERS DO Oct 14, 2018 11:17
[2018-10-14 14:00] VITALS: BP 145/78
[2018-10-14] MEDS: QUEtiapine FUMARATE 100 MG TAB PO SCH (20:30)
[2018-10-14] MEDS: traZODone 100 MG TAB PO SCH (20:30)
[2018-10-14] MEDS: cloNIDine 0.1 MG TAB PO SCH (20:32)
[2018-10-14 22:00] VITALS: BP 146/82
[2018-10-15] MEDS: MORPHINE 4 MG/ML 1ML VIAL/SYRINGE (J2270) IV PRN ×2 (00:29→05:40)
[2018-10-15] MEDS: NS 1,000 ML IV SCH (02:38)
[2018-10-15] MEDS: HEPARIN SOD (PORCINE) 5000 UNITS/ML VIAL SC SCH ×3 (05:40→21:45)
[2018-10-15 05:57] LABS: BASO % 0.6 % (0.0-1.0); EOS # 0.2 10^3/uL (0.0-0.50); EOS % 3.4 % (0.0-3.0); HEMATOCRIT 34.1 % (42.0-52.0); LYMPH # 2.5 10^3/uL (1.5-4.5); LYMPH % 49.9 % (24.0-44.0); MEAN CORPUSCULAR HEMOGLOBIN 30.2 pg (27.0-33.0); MEAN CORPUSCULAR HGB CONC 32.3 g/dl (32.0-36.5); MEAN CORPUSCULAR VOLUME 93.7 fl (80.0-96.0); MONO # 0.6 10^3/uL (0.0-0.8); NEUTROPHILS # 1.8 10^3/uL (1.8-7.7); NEUTROPHILS % 35.1 % (36.0-66.0); PLATELET COUNT, AUTOMATED 153 10^3/uL (150-450); RED BLOOD COUNT 3.64 10^6/uL (4.30-6.10)
[2018-10-15 06:00] VITALS: BP 135/75
[2018-10-15] MEDS: HumaLOG INSULIN (NovoLOG) PER UNIT SC SCH ×4 (06:00→18:00)
[2018-10-15 06:21] LABS: BLOOD UREA NITROGEN 8 MG/DL (7-18); CALCIUM LEVEL 7.7 MG/DL (8.5-10.1); CARBON DIOXIDE LEVEL 25 MEQ/L (21-32); CHLORIDE LEVEL 111 MEQ/L (98-107); CREATININE FOR GFR 1.38 MG/DL (0.70-1.30); GLOMERULAR FILTRATION RATE > 60.0 (>56); GLUCOSE, FASTING 72 MG/DL (70-100); LIPASE 133 U/L (73-393); SODIUM LEVEL 141 MEQ/L (136-145)
[2018-10-15] MEDS: ATORVASTATIN 20 MG TAB PO SCH (09:04)
[2018-10-15] MEDS: TAMSULOSIN 0.4 MG CAP PO SCH (09:07)
[2018-10-15] MEDS: SUCRALFATE 1 GM TAB PO SCH ×2 (09:07→21:45)
[2018-10-15] MEDS: PANTOPRAZOLE 40MG TAB (PROTONIX) PO SCH (09:08)
[2018-10-15] MEDS: TRIUMEQ PO SCH (09:08)
[2018-10-15] MEDS: buPROPion **XL** TABLET 150MG (WELLBUTRIN XL) PO SCH (09:08)
[2018-10-15] MEDS ORDERED: ACETAMINOPHEN TAB 650MG DOSE (2X325MG) PO PRN (11:45)
--- NOTE | 2018-10-15 11:47 | IPNPDOC ---
Date Seen The patient was seen on 10/15/18. Progress Note SUBJECTIVE: Patient was seen and examined this morning. He currently notes improvement in his pain. He states that his pain is no longer sharp and constant. He states that his pain comes and goes but it is manageable. He states that he would like to try advancing his diet today. He does complain of some difficulty breathing. He also complains of a sore throat which he states started the other day. He denies any chest pain. He denies nausea, vomiting, constipation, or diarrhea. OBJECTIVE PHYSICAL EXAMINATION: VITAL SIGNS: Please see below. GENERAL: Patient is awake, alert and oriented. He is lying in bed. He appears in no acute distress HEENT:. Atraumatic, normocephalic. Eyes nonicteric. Trachea is midline. Mucous membranes pink and moist. Angular stomatitis appears to be resolving. White plaque like lesions present on patients tongue consistent with oral thrush CARDIOVASCULAR: Normal S1, S2, regular rate and rhythm. No clicks, rubs or murmurs. RESPIRATORY: Clear to auscultation bilaterally. No wheezes, rhonchi or rales. ABDOMINAL: Nondistended. Tenderness to palpation in all 4 quadrants. No rebound tenderness or guarding. Positive bowel sounds throughout EXTREMITIES:. Equal pulses in upper and lower extremities bilaterally. No edema NEUROLOGICAL:. No focal neurological deficits noted PSYCHOLOGICAL:. Mood and affect appear appropriate today LABORATORY DATA, IMAGING STUDIES, MICROBIOLOGY: Please see below. DVT prophylaxis ordered?: YES ASSESSMENT AND PLAN: Patient is a 60-year-old male with a past medical history significant for HIV, COPD, alcohol abuse, chronic alcoholic pancreatitis, depression and suicidal ideation and attempt who presented to [facility] emergency department yesterday with abdominal pain with nausea and vomiting. Patient received CT imaging and laboratory studies, which revealed a likely acute pancreatitis secondary to the patient's alcohol use. Patient was admitted and given IV fluid hydration, pain medications and made nothing by mouth status. PROBLEMS: 1.. Acute on chronic alcoholic pancreatitis. -Patient has a history of alcohol pancreatitis. He has recently had an episode of binge drinking. -He states that his pain has improved. His diet will be advanced to clear liquids. His IV fluids have been stopped. He will be given Percocet 2tabs PRN and extra strength tylenol for pain control 2.Angular Chelitis/stomatitis -Patient has been given Aquaphor prn -Appears to be resolving 3. Shortness of breath -Patient had complained of shortness of breath this morning. He has been receiving a lot of IV fluid. This has been discontinued. He is currently on room air. Will continue to monitor for improvement now that fluids have been stopped. 4. Oral Thrush -Patient appears to have thrush. This is likely not related to the patients HIV as he is adherent to treatment and his CD4 count is >500. He does use steroid inhalers for COPD and his thrush is likely secondary to that. Will give Nystatin Swish and Swallow 5. Alcohol abuse. -Patient appears stated that he was over 10 months and only recently drank 4- 5 days agoregular with his girlfriend. -Patient is on CIWA protocol 6. Suicidal ideation -In the emergency department, the patient had voiced suicidal ideation and stated that he has a history of attempts. He has stated that he attempted to consume a bottle of Seroquel and trazodone yesterday but was unable to because he was nauseous and vomiting secondary to his pancreatitis. -Patient placed on suicide precautions. Will likely need a psychiatry consult once cleared medically. 7. HIV -Patient is HIV positive. He follows with Dr. Moya. He is currently on Triumeq and states he is adherent to his medication -Pharmacy does not stock this medication patient will try to get medication brought in from home 8. COPD -Currently stable. Respiratory orders PRN 9. Hypertension -Continue home medications 10. DMII -Currently NPO. Sliding scale insulin coverage 11. DVT prophylaxis -Heparin SQ VS, I&O, 24H, Fishbone Vital Signs/I&O Vital Signs Date Time Temp Pulse Resp B/P (MAP) Pulse Ox O2 Delivery O2 Flow Rate FiO2 10/15/18 06:00 97.5 64 18 135/75 (95) 92 10/13/18 14:45 Room Air I&O- Last 24 Hours up to 6 AM 10/15/18 06:00 Intake Total 2530 ml Output Total 1075 ml Balance 1455 ml Laboratory Data 24H LABS Laboratory Tests 2 10/14/18 12:29: Bedside Glucose (Misc Panel) 83 10/14/18 17:59: Bedside Glucose (Misc Panel) 91 10/15/18 00:14: Bedside Glucose (Misc Panel) 80 10/15/18 05:22: Immature Granulocyte % (Auto) 0.0, White Blood Count 5.0, Red Blood Count 3.64L, Hemoglobin 11.0L, Hematocrit 34.1L, Mean Corpuscular Volume 93.7, Mean Corpuscular Hemoglobin 30.2, Mean Corpuscular Hemoglobin Concent 32.3, Red Cell Distribution Width 15.2H, Platelet Count 153, Neutrophils (%) (Auto) 35.1L, Lymphocytes (%) (Auto) 49.9H, Monocytes (%) (Auto) 11.0H, Eosinophils (%) (Auto) 3.4H, Basophils (%) (Auto) 0.6, Neutrophils # (Auto) 1.8, Lymphocytes # (Auto) 2.5, Monocytes # (Auto) 0.6, Eosinophils # (Auto) 0.2, Basophils # (Auto) 0.0, Nucleated Red Blood Cells % (auto) 0.0, Anion Gap 5L, Glomerular Filtration Rate > 60.0, Blood Urea Nitrogen 8, Creatinine 1.38H, Sodium Level 141, Potassium Level 4.0, Chloride Level 111H, Carbon Dioxide Level 25, Calcium Level 7.7L, Lipase 133 CBC/BMP Laboratory Tests 10/15/18 05:22 Red Blood Count 3.64 L, Mean Corpuscular Volume 93.7, Mean Corpuscular Hemoglobin 30.2, Mean Corpuscular Hemoglobin Concent 32.3, Red Cell Distribution Width 15.2 H, Neutrophils (%) (Auto) 35.1 L, Lymphocytes (%) (Auto) 49.9 H, Monocytes (%) (Auto) 11.0 H, Eosinophils (%) (Auto) 3.4 H, Basophils (%) (Auto) 0.6, Neutrophils # (Auto) 1.8, Lymphocytes # (Auto) 2.5, Monocytes # (Auto) 0.6, Eosinophils # (Auto) 0.2, Basophils # (Auto) 0.0, Calcium Level 7.7 L Microbiology Microbiology 10/13/18 Blood Culture - Preliminary, Resulted No Growth after 48 hours. All Specime... 10/13/18 Blood Culture - Preliminary, Resulted No Growth after 48 hours. All Specime... GME ATTESTATION GME ATTESTATION My faculty preceptor for this patient encounter was physically present during the encounter and was fully available. All aspects of the patient interview, examination, medical decision making process, and medical care plan development were reviewed and approved by the faculty preceptor. The faculty preceptor is aware and concurs with the plan as stated in the body of this note and will attest to such by his/her cosignature. OLEKSANDR SUMMERS DO Oct 15, 2018 11:47
[2018-10-15] MEDS: NYSTATIN 500,000 U/5 ML SUSP UDC SS SCH ×3 (13:18→21:45)
[2018-10-15 14:00] VITALS: BP 151/79
[2018-10-15] MEDS: PERCOCET 5MG/325MG TAB PO PRN (16:01)
[2018-10-15] MEDS: traZODone 100 MG TAB PO SCH (21:45)
[2018-10-15] MEDS: QUEtiapine FUMARATE 100 MG TAB PO SCH (21:46)
[2018-10-15] MEDS: cloNIDine 0.1 MG TAB PO SCH (21:47)
[2018-10-15 22:00] VITALS: BP 127/73
[2018-10-16] MEDS: HEPARIN SOD (PORCINE) 5000 UNITS/ML VIAL SC SCH ×3 (05:29→21:27)
[2018-10-16 05:50] LABS: BASO % 0.6 % (0.0-1.0); EOS # 0.2 10^3/uL (0.0-0.50); EOS % 3.7 % (0.0-3.0); HEMATOCRIT 31.7 % (42.0-52.0); HEMOGLOBIN 10.7 g/dl (13.5-17.5); LYMPH % 41.4 % (24.0-44.0); MEAN CORPUSCULAR HEMOGLOBIN 30.1 pg (27.0-33.0); MEAN CORPUSCULAR HGB CONC 33.8 g/dl (32.0-36.5); MONO # 0.5 10^3/uL (0.0-0.8); MONO % 10.5 % (0.0-5.0); NEUTROPHILS # 2.1 10^3/uL (1.8-7.7); NEUTROPHILS % 43.6 % (36.0-66.0); PLATELET COUNT, AUTOMATED 149 10^3/uL (150-450); RED BLOOD COUNT 3.56 10^6/uL (4.30-6.10); WHITE BLOOD COUNT 4.9 10^3/uL (4.0-10.0)
[2018-10-16 06:00] VITALS: BP 140/76
[2018-10-16 06:18] LABS: BLOOD UREA NITROGEN 7 MG/DL (7-18); CALCIUM LEVEL 7.9 MG/DL (8.5-10.1); CARBON DIOXIDE LEVEL 26 MEQ/L (21-32); CHLORIDE LEVEL 105 MEQ/L (98-107); CREATININE FOR GFR 1.22 MG/DL (0.70-1.30); GLOMERULAR FILTRATION RATE > 60.0 (>56); GLUCOSE, FASTING 112 MG/DL (70-100); LIPASE 76 U/L (73-393); POTASSIUM SERUM 3.4 MEQ/L (3.5-5.1); SODIUM LEVEL 138 MEQ/L (136-145)
[2018-10-16] MEDS: NYSTATIN 500,000 U/5 ML SUSP UDC SS SCH ×4 (09:00→21:26)
[2018-10-16] MEDS: PERCOCET 5MG/325MG TAB PO PRN (09:01)
[2018-10-16] MEDS: HumaLOG INSULIN (NovoLOG) PER UNIT SC SCH ×4 (09:01→16:49)
[2018-10-16] MEDS: ATORVASTATIN 20 MG TAB PO SCH (09:02)
[2018-10-16] MEDS: TRIUMEQ PO SCH (09:02)
[2018-10-16] MEDS: buPROPion **XL** TABLET 150MG (WELLBUTRIN XL) PO SCH (09:02)
[2018-10-16] MEDS: TAMSULOSIN 0.4 MG CAP PO SCH (09:02)
[2018-10-16] MEDS: PANTOPRAZOLE 40MG TAB (PROTONIX) PO SCH (09:02)
[2018-10-16] MEDS: SUCRALFATE 1 GM TAB PO SCH ×2 (09:02→21:26)
[2018-10-16] MEDS ORDERED: IPRATROPIUM 0.5MG/ALBUTEROL 2.5MG INH SOL UD 3ML (DUONEB)(J7620) NEB PRN (10:15)
--- NOTE | 2018-10-16 11:52 | IPNPDOC ---
Date Seen The patient was seen on 10/16/18. Progress Note SUBJECTIVE: Patient was seen and examined this morning. He states that his pain has decreased since admission. He has been able to tolerate a clear liquids diet and continues to have an appetite. He would like to try a regular diet. His pain is adequately controlled with PO medications. He denies any nausea or vomiting. He does complain of some shortness of breath which he attributes to his COPD. He does say that it has improved. He is using his inhalers. He denies any chest pain. He currently denies any suicidal ideation however, upon admission he did voice suicidal ideation and possibly attempt. OBJECTIVE PHYSICAL EXAMINATION: VITAL SIGNS: Please see below. VITAL SIGNS: Please see below. GENERAL: Patient is awake, alert and oriented. He is lying in bed eating. He appears in no acute distress HEENT:. Atraumatic, normocephalic. Eyes nonicteric. Trachea is midline. Mucous membranes pink and moist. Angular stomatitis has resolved. Thrush has resolved CARDIOVASCULAR: Normal S1, S2, regular rate and rhythm. No clicks, rubs or murmurs. RESPIRATORY: Clear to auscultation bilaterally. No wheezes, rhonchi or rales. ABDOMINAL: Nondistended. Slight tenderness to palpation throughout. No rebound tenderness or guarding. Positive bowel sounds throughout EXTREMITIES:. Equal pulses in upper and lower extremities bilaterally. No edema NEUROLOGICAL:. No focal neurological deficits noted PSYCHOLOGICAL:. Mood and affect appear appropriate today LABORATORY DATA, IMAGING STUDIES, MICROBIOLOGY: Please see below. DVT prophylaxis ordered?: YES ASSESSMENT AND PLAN: Patient is a 52-year-old male with a past medical history significant for HIV, COPD, alcohol abuse, chronic alcoholic pancreatitis, depression and suicidal ideation and attempt who presented to [facility] emergency department yesterday with abdominal pain with nausea and vomiting. Patient received CT imaging and laboratory studies, which revealed a likely acute pancreatitis secondary to the patient's alcohol use. Patient was admitted and given IV fluid hydration, pain medications and made nothing by out status. PROBLEMS: 1.. Acute on chronic alcoholic pancreatitis. -Patient has a history of alcohol pancreatitis. He has recently had an episode of binge drinking. -He states that his pain has improved. -Diet has been advanced to regular. Appears to be tolerating -IV fluids have been discontinued -Patient is on Percocet 2 tabs PRN and extra strength tylenol for pain. Patient reports adequate pain control 2.Angular Chelitis/stomatitis -Patient has been given Aquaphor prn -Resolved 3. Shortness of breath -Patient is complaining of shortness of breath. He had been given IV fluid for his pancreatitis which may have caused a hypervolemic state. The fluids were stopped yesterday. He does note that his shortness of breath has improved since yesterday. He is currently on room air -Will add Duonebs PRN. -Will continue to monitor for improvement 4. Oral Thrush -Patient appears to have thrush. This is likely not related to the patients HIV as he is adherent to treatment and his CD4 count is >500. He does use steroid inhalers for COPD and his thrush is likely secondary to that. -Patient was given Nystatin Swish and Swallow. His thrush appears to be resolving 5. Alcohol abuse. -Patient appears stated that he was over 10 months and only recently drank 4- 5 days agoregular with his girlfriend. -Patient is on CIMN protocol 6. Suicidal ideation -In the emergency department, the patient had voiced suicidal ideation and stated that he has a history of attempts. He has stated that he attempted to consume a bottle of Seroquel and trazodone yesterday but was unable to because he was nauseous and vomiting secondary to his pancreatitis. -Patient placed on suicide precautions -Patient has improved from a medical standpoint. -Case was discussed with fire control technician psychiatrist who will see and evaluate patient. Consultation has been placed 7. HIV -Patient is HIV positive. He follows with Dr. Moya. He is currently on Triumeq and states he is adherent to his medication -Patient has acquired his home medication. 8. COPD -Patient does complain of shortness of breath. This does not appear to be a COPD exacerbation but rather secondary to volume overload due to the amount of IV fluid he received. -Continue with home inhalers -Respiratory therapy -Duonebs PRN -Will continue to monitor 9. Hypertension -Continue home medications 10. DMII -Currently NPO. Sliding scale insulin coverage 11. DVT prophylaxis -Heparin SQ DISPOSITION: Patient has been improving clinically. He can not be discharged until he is evaluated by psychiatry for suicidal ideation VS, I&O, 24H, Fishbone Vital Signs/I&O Vital Signs Date Time Temp Pulse Resp B/P (MAP) Pulse Ox O2 Delivery O2 Flow Rate FiO2 10/16/18 09:35 18 10/16/18 06:00 97.3 66 140/76 (97) 96 10/13/18 14:45 Room Air I&O- Last 24 Hours up to 6 AM 10/16/18 06:00 Intake Total 1890 ml Output Total 1850 ml Balance 40 ml Laboratory Data 24H LABS Laboratory Tests 2 10/15/18 17:17: Bedside Glucose (Misc Panel) 123H 10/16/18 00:03: Bedside Glucose (Misc Panel) 166H 10/16/18 05:17: Immature Granulocyte % (Auto) 0.2, White Blood Count 4.9, Red Blood Count 3.56L, Hemoglobin 10.7L, Hematocrit 31.7L, Mean Corpuscular Volume 89.0, Mean Corpuscular Hemoglobin 30.1, Mean Corpuscular Hemoglobin Concent 33.8, Red Cell Distribution Width 14.0, Platelet Count 149L, Neutrophils (%) (Auto) 43.6, Lymphocytes (%) (Auto) 41.4, Monocytes (%) (Auto) 10.5H, Eosinophils (%) (Auto) 3.7H, Basophils (%) (Auto) 0.6, Neutrophils # (Auto) 2.1, Lymphocytes # (Auto) 2.0, Monocytes # (Auto) 0.5, Eosinophils # (Auto) 0.2, Basophils # (Auto) 0.0, Nucleated Red Blood Cells % (auto) 0.0, Anion Gap 7L, Glomerular Filtration Rate > 60.0, Blood Urea Nitrogen 7, Creatinine 1.22, Sodium Level 138, Potassium Level 3.4L, Chloride Level 105, Carbon Dioxide Level 26, Calcium Level 7.9L, Lipase 76 CBC/BMP Laboratory Tests 10/16/18 05:17 Red Blood Count 3.56 L, Mean Corpuscular Volume 89.0, Mean Corpuscular Hemoglobin 30.1, Mean Corpuscular Hemoglobin Concent 33.8, Red Cell Distribution Width 14.0, Neutrophils (%) (Auto) 43.6, Lymphocytes (%) (Auto) 41.4, Monocytes (%) (Auto) 10.5 H, Eosinophils (%) (Auto) 3.7 H, Basophils (%) (Auto) 0.6, Neutrophils # (Auto) 2.1, Lymphocytes # (Auto) 2.0, Monocytes # (Auto) 0.5, Eosinophils # (Auto) 0.2, Basophils # (Auto) 0.0, Calcium Level 7.9 L Microbiology Microbiology 10/13/18 Blood Culture - Preliminary, Resulted No Growth after 72 hours. All specime... 10/13/18 Blood Culture - Preliminary, Resulted No Growth after 72 hours. All specime... GME ATTESTATION GME ATTESTATION My faculty preceptor for this patient encounter was physically present during the encounter and was fully available. All aspects of the patient interview, examination, medical decision making process, and medical care plan development were reviewed and approved by the faculty preceptor. The faculty preceptor is aware and concurs with the plan as stated in the body of this note and will attest to such by his/her cosignature. OLEKSANDR SUMMERS DO Oct 16, 2018 11:52
[2018-10-16 14:00] VITALS: BP 129/63
[2018-10-16] MEDS ORDERED: HumaLOG INSULIN (NovoLOG) PER UNIT SC SCH (21:00)
[2018-10-16 21:26] VITALS: BP 142/80
[2018-10-16] MEDS: QUEtiapine FUMARATE 100 MG TAB PO SCH (21:26)
[2018-10-16] MEDS: cloNIDine 0.1 MG TAB PO SCH (21:26)
[2018-10-16] MEDS: traZODone 100 MG TAB PO SCH (21:26)
[2018-10-16 22:00] VITALS: BP 142/80
[2018-10-17] MEDS: HEPARIN SOD (PORCINE) 5000 UNITS/ML VIAL SC SCH ×2 (05:31→13:31)
[2018-10-17 05:48] LABS: BASO % 0.5 % (0.0-1.0); EOS # 0.2 10^3/uL (0.0-0.50); EOS % 3.4 % (0.0-3.0); HEMATOCRIT 33.4 % (42.0-52.0); HEMOGLOBIN 11.3 g/dl (13.5-17.5); LYMPH # 2.1 10^3/uL (1.5-4.5); LYMPH % 48.7 % (24.0-44.0); MEAN CORPUSCULAR HEMOGLOBIN 30.1 pg (27.0-33.0); MEAN CORPUSCULAR HGB CONC 33.8 g/dl (32.0-36.5); MEAN CORPUSCULAR VOLUME 89.1 fl (80.0-96.0); MONO # 0.5 10^3/uL (0.0-0.8); MONO % 11.3 % (0.0-5.0); NEUTROPHILS # 1.6 10^3/uL (1.8-7.7); NEUTROPHILS % 35.9 % (36.0-66.0); PLATELET COUNT, AUTOMATED 164 10^3/uL (150-450); RED BLOOD COUNT 3.75 10^6/uL (4.30-6.10); WHITE BLOOD COUNT 4.4 10^3/uL (4.0-10.0)
[2018-10-17 06:00] VITALS: BP 137/83
[2018-10-17 06:07] LABS: BLOOD UREA NITROGEN 6 MG/DL (7-18); CALCIUM LEVEL 8.2 MG/DL (8.5-10.1); CARBON DIOXIDE LEVEL 28 MEQ/L (21-32); CHLORIDE LEVEL 104 MEQ/L (98-107); CREATININE FOR GFR 1.29 MG/DL (0.70-1.30); GLOMERULAR FILTRATION RATE > 60.0 (>56); GLUCOSE, FASTING 120 MG/DL (70-100); LIPASE 113 U/L (73-393); POTASSIUM SERUM 3.4 MEQ/L (3.5-5.1); SODIUM LEVEL 138 MEQ/L (136-145)
[2018-10-17] MEDS: HumaLOG INSULIN (NovoLOG) PER UNIT SC SCH ×3 (07:30→17:17)
[2018-10-17] MEDS: ATORVASTATIN 20 MG TAB PO SCH (08:22)
[2018-10-17] MEDS: TAMSULOSIN 0.4 MG CAP PO SCH (08:22)
[2018-10-17] MEDS: SUCRALFATE 1 GM TAB PO SCH (08:22)
[2018-10-17] MEDS: PANTOPRAZOLE 40MG TAB (PROTONIX) PO SCH (08:22)
[2018-10-17] MEDS: TRIUMEQ PO SCH (08:23)
[2018-10-17] MEDS: NYSTATIN 500,000 U/5 ML SUSP UDC SS SCH ×3 (08:24→17:17)
[2018-10-17] MEDS: buPROPion **XL** TABLET 150MG (WELLBUTRIN XL) PO SCH (08:30)
--- NOTE | 2018-10-17 09:05 | CR ---
DATE OF CONSULTATION: 10/16/2018 CHIEF COMPLAINT: Says feels okay. SUBJECTIVE: He is [id number] and has a history of COPD, bipolar disorder, alcohol misuse, recurrent alcohol pancreatitis, hypertension, HIV, and has been seeing Dr. Moya regularly. The chart is reviewed. Patient is interviewed, and I have been asked to see him by the hospitalists, who where concerned regarding his state. He was coming out expressing suicidal thoughts, intents, and had indicated that he had in fact tried taking an overdose of Seroquel and Trazodone, and that he threw up the medication immediately afterwards, has continued to endorse suicidal thoughts. He is seen in outpatient psychiatric care at the [facility], saw them recently. Is on Seroquel and trazodone as well as the trazodone more lately. Patient says that he feels okay now, indicates that he had been sober for 10 months, says gone to girlfriends place who had invited him, they took a couple of drinks and says that he began feeling pain. The pain worsened, says this has happened in the past, and his blood sugars were fluctuating, He felt frustrated, and lateral today he was eventually brought to the hospital. He says Tiara, who he lives with, is aware and that his frustration had increased. He denies that he felt suicidal, says he had only answered that question in response to hypothetical. He also denied attempting taking an overdose, says they told staff this is what he would do if he were to try killing himself. This is in contrast to what is seen in the chart however. Says that he has been feeling frustrated, and emotionally lately had been doing okay. Says that he has attended his outpatient care a the [facility]. PAST PSYCHIATRIC HISTORY: Please see previous summaries, had been admitted inpatient psychiatric unit last year. Has a diagnosis of bipolar disorder, and at some point some question regarding personality disorder as well. He has a history of alcohol misuse. MEDICATIONS: Please see the list this includes bupropion 300 mg daily, clonidine 0.5 mg daily, gabapentin 400 mg three times a day, prazosin 3 mg at night, quetiapine 300 mg at night, trazodone 100 mg at night, Flomax 0.4 mg daily, Carafate 1 gram twice a day, atorvastatin 40 mg daily, triumeq 600-50-300 mg 1 pill daily. ALLERGIES: Banana. MEDICAL ISSUES: As indicated above. He has a history of HIV, COPD, hypertension, diabetes mellitus, alcoholic pancreatitis. SOCIAL HISTORY: Please refer to previous summaries, has a girlfriend, who has had a breakup recently, details unknown, but he suggests that she has been visiting him. MENTAL STATUS EXAM: He is lying in bed. No agitation. No psychomotor retardation, mildly irritable. Affect fairly broad. He is coherent. No abnormal movements noted. He denies any suicidal thoughts or intents. He has no homicidal ideas or intents. Currently no evidence of any psychosis. Cognition grossly intact. No fluctuation of consciousness. Judgment and insight are compromised. INVESTIGATIONS: These show blood pressure 140/76, pulse 66, temperature 97.3, blood glucose 166. Lipase on admission was 2224 this was about 3 days ago, ([id number]) and it is currently 76 which is within normal limits. ASSESSMENT: Bipolar disorder, current episode depressed. Post-traumatic stress disorder by history. Pancreatitis. Alcohol use disorder. Relationship problems. He has relapsed, using alcohol after being sober for 10 months, this is after a breakup with his girlfriend. This has led to pancreatitis, a recurrence, increase in pain, and further frustration, felt depressed, suicidal, attempted an overdose of Seroquel, which he currently denies and minimizes. He has questionable judgment and insight. There are discrepancies initially in the narrative in the medical record, where he indicated his thoughts, including suicidal thoughts, and the intent and his current stance that those were hypothetical events, that those answers were in response to potential if he were to be suicidal. Given the above and the discrepancies, and his questionable judgment and insight, I have concerns regarding his ability to maintain his safety. RECOMMENDATIONS: He need inpatient psychiatric hospitalization. Further evaluation and management, and stabilization after he has been fully medically cleared. He meets criteria for involuntary hospitalization. I anticipate that he will be medically cleared within the next 24 hours. The assessment took 30 minutes.
[2018-10-17 14:00] VITALS: BP 170/84
--- NOTE | 2018-10-17 14:09 | DS.PDOC ---
Discharge Summary General Date of Admission Oct 13, 2018 at 15:05 Date of Discharge 10/17/18 Attending Physician: THIEN CROCKETT MD Specialist/Consultants Involve: Jasmyn Oropeza MD Discharge Summary PROCEDURES PERFORMED DURING STAY: [None]. ADMITTING DIAGNOSES: 1. Alcoholic Pancreatitis 2. History of Alcohol Abuse 3. Suicidal ideation w/ history of attempt DISCHARGE DIAGNOSES: 1. Alcoholic Pancreatitis 2. History of Alcohol abuse 3. Suicidal Ideation w/ attempt COMPLICATIONS/CHIEF COMPLAINT: Acute Or Chronic Pancreatitis. HISTORY OF PRESENT ILLNESS: Patient is a 52-year-old male with a past medical history significant for HIV, hypertension, chronic obstructive pulmonary disease, recurrent alcoholic pancreatitis, history of alcohol abuse, bipolar disorder, history of suicidal ideation and attempt who presented to the [facility] emergency department with complaint of epigastric pain. Patient has stated that his girlfriend has recently broken up with him. He admits that at that time he became depressed and started drinking. Before this he had been sober for 10 months. He admits to having 4-5 drinks. He defines a drink as approximately 3-4 shots of vodka per drink. The next day the patient developed some nausea as well as abdominal pain which has progressed and gotten worse until the day of admission. He stated that he has been unable to tolerate any food as it makes him nauseous. He does have a history of pancreatitis and his symptoms felt similar to his previous episodes. Additionally, the patient stated that he has been feeling depressed ever since his girlfriend had broken up with him. He stated that he had attempted to consume an entire bottle of Seroquel and trazodone. However, he stated that he threw up the medication immediately. He does continue to admit to suicidal ideation. He states that he has attempted to commit suicide in the past and is seen by mental health. In the ER the patient received IV fluids and pain medications. He was made NPO. The patient received CT imaging which showed peripancreatic fat streaking consistent with acute pancreatitis, dilated main pancreatic duct, chronic pancreatitis- type calcifications in the pancreatic head. Additionally, he received a liver U/S which demonstrated hepatomegaly and diffuse fatty infiltration of the liver with a small trace amount of ascites. The patient was subsequently admitted to hospitalist service for further evaluation and management HOSPITAL COURSE: Once at the hospital, the patient was continued on IV pain medication and IV fluid. His pain had started to resolve and the patient was transitioned to a regular diet which he tolerated. He did develop shortness of breath which was felt to be due to the amount of fluids that he had been receiving. His IV fluids were discontinued and the patient was placed on PO pain medications. He continued to receive respiratory therapy. He did have what appeared to be thrush which was believed to be caused from his recurrent use of steroid inhalers and not from his HIV. He continued to improve medically throughout his stay. At admission, the patient had voiced suicidal ideation as well as recent attempt. He admitted to depression and recent relapse in alcohol use following a break up with his girlfriend. A consultation with psychiatry was placed as the patient was felt not to be safe for discharge home. Psychiatry has recommended that the patient be sent for inpatient psychiatric hospitalization. Once the patient was medically stable he was discharged to the Inpatient Mental Health Unit for further evaluation and management. DISCHARGE MEDICATIONS: Please see below. ALLERGIES: Please see below. PHYSICAL EXAMINATION ON DISCHARGE: VITAL SIGNS: Please see below. GENERAL: Awake, alert, and oriented. He appears in no acute distress. He is sitting up in bed eating his breakfast HEENT: Atraumatic Normocephalic. Trachea is midline. Eyes are non-icteric. Mucous membranes are pink and moist CARDIOVASCULAR EXAMINATION: Normal S1, S2. Regular rate and rhythm. No clicks, rubs, or murmurs noted on exam RESPIRATORY EXAMINATION: Clear vesicular lung sounds to auscultation luz aterally. No wheezes, rhonci, or rales ABDOMINAL EXAMINATION: Soft, nondistended. Slight tenderness to palpation throughout. No rebound tenderness or guarding. Positive bowel sounds throughout EXTREMITIES: No edema. Full and equal pulses in bilateral upper and lower extremities SKIN: No rashes or lesions NEUROLOGICAL EXAMINATION: No focal neurological deficits PSYCHIATRIC EXAMINATION: Mood and affect appear appropriate. Insight and judgment impaired LABORATORY DATA: Please see below. IMAGING: CT ABDOMEN AND PELVIS WITHOUT IV OR ORAL CONTRAST: HISTORY: Pancreatitis. COMPARISON CT STUDY: November 08, 2017 CT FINDINGS: Preliminary digital cap sewer radiograph demonstrates an unremarkable bowel gas pattern. The lung bases show discoid atelectasis bilaterally, right more so than left. No pleural effusion is seen. The liver and the spleen are normal in size, homogeneous in texture. The gallbladder is unremarkable by CT. There is evidence consistent with pancreatitis with peripancreatic fat streaking similar to the appearance seen on November 08, 2017. No defined fluid collection is seen. The main pancreatic duct is somewhat dilated measuring up to 5 mm. This is unchanged as well. There are chronic pancreatitis calcifications in the uncinate lobe of the head of the pancreas as before. No evidence of hematoma or abscess is seen. No hydronephrosis or renal lesion is observed. No adrenal abnormality is observed. Small and large bowel loops are unremarkable. Normal appendix is seen. Seminal vesicles, prostate, and urinary bladder are unremarkable. Bone window settings demonstrate what appears to be old posttraumatic deformity at the symphysis pubis and subcortical cyst formation at the hips. No acute bony abnormality. IMPRESSION: Peripancreatic fat streaking consistent with acute pancreatitis. Somewhat dilated main pancreatic duct, unchanged from comparison study. Chronic pancreatitis-type calcifications in the pancreatic head. No CT evidence of gallstone. Otherwise negative. Platelike atelectasis in the lung bases. Electronically Signed by Alex Marie MD 10/13/2018 07:44 P PROGNOSIS: Good ACTIVITY: [As tolerated]. DIET: As tolerated. Avoid Alcohol Use DISCHARGE PLAN: Patient is to be discharged to [facility] for further evaluation and management of his depression and suicidal ideation with recent attempt. Upon discharge from [facility] he is to follow up with his PCP for management of his chronic medical conditions. He is to avoid alcohol use. DISPOSITION: . DISCHARGE INSTRUCTIONS: 1. [facility] 2. F/U with PCP after D/C from [facility] 3. Avoid Alcohol use DISCHARGE CONDITION: [Stable]. TIME SPENT ON DISCHARGE: Greater than 40 minutes. Vital Signs/I&Os Vital Signs Date Time Temp Pulse Resp B/P (MAP) Pulse Ox O2 Delivery O2 Flow Rate FiO2 10/17/18 06:00 98.2 58 15 137/83 (101) 95 10/13/18 14:45 Room Air I&O- Last 24 Hours up to 6 AM 10/17/18 06:00 Intake Total 1810 ml Output Total 1425 ml Balance 385 ml Laboratory Data Labs 24H Laboratory Tests 2 10/16/18 16:24: Bedside Glucose (Misc Panel) 130H 10/16/18 21:27: Bedside Glucose (Misc Panel) 181H 10/17/18 05:33: Immature Granulocyte % (Auto) 0.2, White Blood Count 4.4, Red Blood Count 3.75L, Hemoglobin 11.3L, Hematocrit 33.4L, Mean Corpuscular Volume 89.1, Mean Corpuscular Hemoglobin 30.1, Mean Corpuscular Hemoglobin Concent 33.8, Red Cell Distribution Width 14.1, Platelet Count 164, Neutrophils (%) (Auto) 35.9L, Lymphocytes (%) (Auto) 48.7H, Monocytes (%) (Auto) 11.3H, Eosinophils (%) (Auto) 3.4H, Basophils (%) (Auto) 0.5, Neutrophils # (Auto) 1.6L, Lymphocytes # (Auto) 2.1, Monocytes # (Auto) 0.5, Eosinophils # (Auto) 0.2, Basophils # (Auto) 0.0, Nucleated Red Blood Cells % (auto) 0.0, Anion Gap 6L, Glomerular Filtration Rate > 60.0, Blood Urea Nitrogen 6L, Creatinine 1.29, Sodium Level 138, Potassium Level 3.4L, Chloride Level 104, Carbon Dioxide Level 28, Calcium Level 8.2L, Lipase 113 10/17/18 11:49: Bedside Glucose (Misc Panel) 155H CBC/BMP Laboratory Tests 10/17/18 05:33 Red Blood Count 3.75 L, Mean Corpuscular Volume 89.1, Mean Corpuscular Hemoglobin 30.1, Mean Corpuscular Hemoglobin Concent 33.8, Red Cell Distribution Width 14.1, Neutrophils (%) (Auto) 35.9 L, Lymphocytes (%) (Auto) 48.7 H, Monocytes (%) (Auto) 11.3 H, Eosinophils (%) (Auto) 3.4 H, Basophils (%) (Auto) 0.5, Neutrophils # (Auto) 1.6 L, Lymphocytes # (Auto) 2.1, Monocytes # (Auto) 0.5, Eosinophils # (Auto) 0.2, Basophils # (Auto) 0.0, Calcium Level 8.2 L FSBS Laboratory Tests Test 10/16/18 16:24 10/16/18 21:27 10/17/18 11:49 Range/Units Bedside Glucose (Misc Panel) 130 181 155 70-105 MG/DL Microbiology Microbiology 10/13/18 Blood Culture - Preliminary, Resulted No Growth after 72 hours. All specime... 10/13/18 Blood Culture - Preliminary, Resulted No Growth after 72 hours. All specime... Discharge Medications Scheduled (Asmanex 60 Metered Doses) 220 Mcg/Inh Aer, 1 PUFF INH QAM, (Reported) (Triumeq 600-50-300 mg) 1 Tab Tab, 1 TAB PO DAILY, (Reported) (Admelog Solostar) 100 Unit/Ml Inj, 1 DOSE SC TID, (Reported) PER SLIDING SCALE (Basaglar Kwikpen) 100 Unit/Ml Inj, 18 UNIT SC DAILY, (Reported) Atorvastatin Calcium (Atorvastatin Calcium) 40 Mg Tab, 40 MG PO DAILY, (Re ported) Bupropion HCl (Bupropion HCl Xl) 300 Mg Tab, 300 MG PO DAILY, (Reported) Clonidine Hcl (Catapres) 0.1 Mg Tab, 0.1 MG PO QPM, (Reported) Docusate Calcium (Docusate Calcium) 240 Mg Cap, 240 MG PO DAILY, (Reported) Fluticasone/Vilanterol (Breo Ellipta 100-25 Mcg/INH) 1 Inh Inh, 1 PUFF INH DAILY, (Reported) Gabapentin (Gabapentin) 400 Mg Cap, 400 MG PO TID, (Reported) Pantoprazole Sodium (Pantoprazole Sodium) 40 Mg Tab, 40 MG PO DAILY for HEARTBURN, (Reported) Prazosin Hcl (Prazosin HCl) 1 Mg Cap, 3 MG PO QHS, (Reported) Quetiapine Fumerate (Quetiapine Fumarate) 300 Mg Tab, 300 MG PO QHS, (Reported) Ramipril (Ramipril) 5 Mg Cap, 5 MG PO DAILY, (Reported) Sucralfate (Carafate) 1 Gm Tab, 1 GM PO BID, (Reported) Tamsulosin Hydrochloride (Flomax) 0.4 Mg Cap, 0.4 MG PO DAILY, (Reported) Trazodone HCl (Trazodone HCl) 100 Mg Tab, 200 MG PO QHS, (Reported) Scheduled PRN Albuterol Sulfate (Ventolin Hfa) 108 Mcg/Act Aer, 2 PUFF INH Q4H PRN for SHORTNESS OF BREATH, (Reported) Ibuprofen (Ibuprofen) 600 Mg Tab, 600 MG PO BID PRN for PAIN, (Reported) Ondansetron HCl (Zofran) 4 Mg Tab, 4 MG PO DAILY PRN for NAUSEA, (Reported) Allergies Coded Allergies: Banana (Verified Allergy, Intermediate, HIVES, 4/3/13) GME ATTESTATION GME ATTESTATION My faculty preceptor for this patient encounter was physically present during the encounter and was fully available. All aspects of the patient interview, examination, medical decision making process, and medical care plan development were reviewed and approved by the faculty preceptor. The faculty preceptor is aware and concurs with the plan as stated in the body of this note and will attest to such by his/her cosignature. OLEKSANDR SUMMERS DO Oct 17, 2018 14:09
[2018-10-17 17:09] VITALS: BP 158/72
== END 2018-10-17 17:27 | disposition home or self-care (01) | DRG 282 ==
LOC: M ED 09:47 → EDBD 09:47 → M ED INP 15:05 → M MSPAV 10-14 00:10
PROVIDERS: ADMIT Internal Medicine; ATTEND Internal Medicine
DX: K85.20 Alcohol induced acute pancreatitis without necrosis or infection (principal); B20 Human immunodeficiency virus [HIV] disease; B37.0 Candidal stomatitis; J44.9 Chronic obstructive pulmonary disease, unspecified; E11.9 Type 2 diabetes mellitus without complications; I10 Essential (primary) hypertension; F10.20 Alcohol dependence, uncomplicated; K86.0 Alcohol-induced chronic pancreatitis; F17.210 Nicotine dependence, cigarettes, uncomplicated; F31.9 Bipolar disorder, unspecified; F43.10 Post-traumatic stress disorder, unspecified; Z91.5 Personal history of self-harm; Z79.899 Other long term (current) drug therapy; Z91.018 Allergy to other foods; Z63.0 Problems in relationship with spouse or partner

== ENCOUNTER 2018-10-17 16:43 | Inpatient (IN) | payer OTHER ==
[~2018-10-17] VITALS: Ht 175.3 cm; Wt 75.3 kg
[~2018-10-17 16:43] MED LIST changes: -/ADVA50050 IN; -/AMLO25TA PO; -/CLON1TA PO; -/MOXI40TA PO; -/QUET10TA OR; -/SUCR1TA OR; +ADME100I2 SC; +ADVA1AER2 IN; +AVEL1TAB2 PO; +BASA100I SC; +BREO1INH INH; +CLONI1TA PO; +DOCU240C9 PO; +FLOM0.4C39 PO; +NORV2TAB PO; +OXYC1TAB23 PO; +PRAZ1CAP PO; +RAMI1CAP21 PO; +RAMI1CAP24 PO; +SERO1TAB OR; +SUCR1TAB56 OR; +VENTAER INH
[2018-10-17] MEDS ORDERED: ACETAMINOPHEN TAB 650MG DOSE (2X325MG) PO PRN (17:00)
[2018-10-17] MEDS ORDERED: MOM 30ML SUSPENSION UDC PO PRN (17:00)
[2018-10-17] MEDS ORDERED: traZODone 50 MG TAB PO PRN (17:00)
[2018-10-17] MEDS ORDERED: MAALOX 30 ML SUSP *UDC PO PRN (17:00)
[2018-10-17 17:39] VITALS: BP 148/98
[2018-10-17] MEDS ORDERED: AQUAPHOR **100GM** OINT TOP PRN (20:00)
[2018-10-17] MEDS ORDERED: ALBUTEROL 90 MCG/ACT 8GM HFA INHALER INH PRN (20:15)
[2018-10-17] MEDS ORDERED: ONDANSETRON 4 MG ORAL DISINTEGRATING TAB (Q0162 PER 1MG) SL PRN (20:15)
[2018-10-17] MEDS ORDERED: GLUCAGON FOR INJ 1 MG VIAL (J1610) SC PRN (20:15)
[2018-10-17] MEDS ORDERED: DEXTROSE 50% 50 ML SYRINGE IV PRN (20:15)
[2018-10-17] MEDS ORDERED: GLUCOSE 4 GM CHEW TABLET PO PRN (20:15)
[2018-10-17] MEDS: NYSTATIN 500,000 U/5 ML SUSP UDC SS SCH (21:00)
[2018-10-17] MEDS: HumaLOG INSULIN (NovoLOG) PER UNIT SC SCH (21:00)
[2018-10-17] MEDS ORDERED: SUCRALFATE 1 GM TAB PO SCH (21:00)
[2018-10-17] MEDS: QUEtiapine FUMARATE 100 MG TAB PO SCH (21:02)
[2018-10-17] MEDS: PERCOCET 5MG/325MG TAB PO PRN (21:02)
[2018-10-17] MEDS: traZODone 100 MG TAB PO SCH (22:39)
[2018-10-17] MEDS: GABAPENTIN 400 MG CAP PO SCH (22:39)
[2018-10-17] MEDS: cloNIDine 0.1 MG TAB PO SCH (22:40)
[2018-10-17] MEDS: PRAZOSIN 1 MG CAP PO SCH (22:40)
[2018-10-18] MEDS: HumaLOG INSULIN (NovoLOG) PER UNIT SC SCH ×4 (06:20→20:53)
[2018-10-18 06:31] VITALS: BP 140/77
[2018-10-18] MEDS: SUCRALFATE 1 GM TAB PO SCH ×2 (07:45→17:03)
[2018-10-18] MEDS: TAMSULOSIN 0.4 MG CAP PO SCH (08:42)
[2018-10-18] MEDS: buPROPion **XL** TABLET 150MG (WELLBUTRIN XL) PO SCH (08:43)
[2018-10-18] MEDS: PANTOPRAZOLE 40MG TAB (PROTONIX) PO SCH (08:43)
[2018-10-18] MEDS: NYSTATIN 500,000 U/5 ML SUSP UDC SS SCH ×4 (08:43→20:47)
[2018-10-18] MEDS: ATORVASTATIN 20 MG TAB PO SCH (08:43)
[2018-10-18] MEDS: TRIUMEQ PO SCH (08:43)
[2018-10-18] MEDS: RAMIPRIL 5 MG CAP PO SCH (08:43)
[2018-10-18] MEDS: GABAPENTIN 400 MG CAP PO SCH ×3 (08:43→20:51)
[2018-10-18] MEDS: BREO ELLIPTA INH SCH (08:43)
[2018-10-18] MEDS ORDERED: buPROPion 100 MG TAB PO SCH (09:00)
[2018-10-18 18:00] VITALS: BP 133/82
[2018-10-18] MEDS: PERCOCET 5MG/325MG TAB PO PRN (20:49)
[2018-10-18] MEDS: QUEtiapine FUMARATE 100 MG TAB PO SCH (20:51)
[2018-10-18] MEDS: traZODone 100 MG TAB PO SCH (20:51)
[2018-10-18] MEDS: PRAZOSIN 1 MG CAP PO SCH (20:51)
[2018-10-18] MEDS: cloNIDine 0.1 MG TAB PO SCH (20:52)
--- NOTE | 2018-10-19 03:14 | MHHPE ---
DATE OF ADMISSION: 10/17/2018 CHIEF COMPLAINT: Says he feels fine. SUBJECTIVE: He is 52 years old. Has history of chronic obstructive pulmonary disease (COPD), bipolar disorder, alcohol misuse, human immunodeficiency virus (HIV), hypertension, recurrent alcoholic pancreatitis. He sees Dr. Moya regularly. He was admitted to the inpatient psychiatry unit after he had been seen on consultation at [facility], the medicine service, admitted there initially, as he had had a relapse using alcohol early in the week, and had developed pancreatitis again, that was being treated. There was some concerns at the time that he had indicated suicidal thoughts or intents, and that he had tried taking an overdose of Seroquel, and threw up the medication immediately afterwards. When I saw him, on consult, he in fact denied that, and said that that was in answer to a hypothetical situation. Since there are discrepancies in the narrative, and he denies that he and his girlfriend broke up recently, which is also in the initial chart, it was decided to admit him for further evaluation, since there are concerns regarding his judgment and ability to maintain safety. He says he feels better, and that the abdominal pains are more settled, and says he feels them only slightly, and that he has been eating okay. Says moods are good, and continues to deny any suicidal thoughts or intents. Says he and his girlfriend have regular ups and downs, but denies that they had broken up. He also indicated that he had had difficulties after the of his fiance a couple of years ago, after which he had started drinking again, and was suicidal at the time. He feels that the discrepancy in the narrative may be related to that. Attends outpatient care at [facility]. The circumstances of his being admitted to hospital, background history, are detailed in the consultation summary when I saw him a couple of days ago, please refer to that for them. He says he has been on the quetiapine at 300 mg at night for a while, he has tolerated it well, as well as the bupropion at 300 mg daily. MENTAL STATUS EXAMINATION: He is neat. He is cooperative. He is sitting up in bed. There is no agitation. He is coherent. No psychomotor retardation. No abnormal movements noted. Affect is broad. Appears more relaxed than when I had seen him a couple of days ago. He currently denies any suicidal thoughts or intentions or homicidal ideation or intents. No evidence of any psychosis. Judgment is fair. Insight is fair. ASSESSMENT: 1. Bipolar disorder. Current episode depressed. 2. Post-traumatic stress disorder by history. 3. Pancreatitis. 4. Alcohol use disorder. 5. Relationship problems. As there are discrepancies in the narrative that he had apparently provided earlier, when he was admitted to medicine, and now, this requires further evaluation, and he is admitted to inpatient psychiatry. PLAN: He is admitted to the inpatient psychiatry unit for further assessment. He will be involved in individual, group and milieu therapy. He will continue to see the hospitalist should the need arise, given his recent pancreatitis. We will look at obtaining collateral information to help clarify events and his current state. I also suggest continuing with the - Seroquel at 300 mg at night - Wellbutrin 300 mg daily - prazosin 3 mg at night, which he has found to be useful - gabapentin 400 mg three times a day and the rest of his care. He will see the assigned psychiatrist in the treatment team tomorrow, and I anticipate a short stay. VITAL SIGNS: Blood pressure 105/62, pulse 71, temperature is 97.3. The assessment took thirty minutes.
[2018-10-19 06:37] VITALS: BP 120/62
[2018-10-19 07:12] LABS: BLOOD UREA NITROGEN 13 MG/DL (7-18); CALCIUM LEVEL 8.3 MG/DL (8.5-10.1); CARBON DIOXIDE LEVEL 29 MEQ/L (21-32); CHLORIDE LEVEL 103 MEQ/L (98-107); CREATININE FOR GFR 1.44 MG/DL (0.70-1.30); GLOMERULAR FILTRATION RATE > 60.0 (>56); GLUCOSE, FASTING 220 MG/DL (70-100); SODIUM LEVEL 138 MEQ/L (136-145)
[2018-10-19] MEDS: HumaLOG INSULIN (NovoLOG) PER UNIT SC SCH ×2 (07:57→12:00)
[2018-10-19] MEDS: SUCRALFATE 1 GM TAB PO SCH (07:57)
[2018-10-19] MEDS: PANTOPRAZOLE 40MG TAB (PROTONIX) PO SCH (07:59)
[2018-10-19] MEDS: buPROPion **XL** TABLET 150MG (WELLBUTRIN XL) PO SCH (07:59)
[2018-10-19] MEDS: ATORVASTATIN 20 MG TAB PO SCH (07:59)
[2018-10-19] MEDS: TRIUMEQ PO SCH (07:59)
[2018-10-19 08:00] VITALS: BP 120/62
[2018-10-19] MEDS: TAMSULOSIN 0.4 MG CAP PO SCH (08:00)
[2018-10-19] MEDS: RAMIPRIL 5 MG CAP PO SCH (08:00)
[2018-10-19] MEDS: GABAPENTIN 400 MG CAP PO SCH (08:00)
[2018-10-19] MEDS: NYSTATIN 500,000 U/5 ML SUSP UDC SS SCH ×2 (08:00→13:00)
[2018-10-19] MEDS: BREO ELLIPTA INH SCH (08:01)
[2018-10-19] MEDS ORDERED: LEVEMIR (INSULIN DETEMIR) 1 UNITS/0.01ML SC SCH (09:00)
--- NOTE | 2018-10-19 12:11 | HPE ---
DATE OF ADMISSION: 10/17/2018 HISTORY OF THE PRESENT ILLNESS: Please refer to psychiatric history and evaluation for further details on this admission. This examination and history is intended for medical issues history, which may need treatment, follow-up or consult on this 52-year-old male who was transferred from the intensive care unit after having been admitted and treated for acute on chronic pancreatitis. While on the input unit he had a psychiatric consult, was seen by Dr. Oropeza who felt that he needed inpatient psychiatric hospitalization for evaluation and management regarding his relapse of alcohol after 10 months of being sober and question of increased suicidal ideation and possible attempted overdose and he was transferred to the inpatient mental health unit when he was medically stable. ALLERGIES: 1. Bananas. PRIMARY CARE PROVIDER: He states he sees Dr. Moya. SOCIAL HISTORY: Current smoker, smokes approximately one half pack per day. History of alcohol abuse. He has been sober for 10 months. He got out of rehab approximately a month and a half ago, recent relapse 4-5 days ago. FAMILY HISTORY: Noncontributory. PAST MEDICAL HISTORY: HIV and he is adherent to treatment. His medication has been brought in and he will continue it while on inpatient mental health. Chronic obstructive pulmonary disease (COPD). Hypertension. Alcohol abuse. Chronic pancreatitis secondary to alcohol. Bipolar disorder. History of suicidal ideation. Hypercholesterolemia. Benign prostatic hypertrophy (BPH). Insulin dependent diabetes. PAST SURGICAL HISTORY: Right knee surgery. HOME MEDICATIONS: - albuterol two puffs every 4 hours as needed shortness of breath or wheeze - atorvastatin 40 mg by mouth daily - bupropion XL 300 mg by mouth daily - clonidine 0.1 mg by mouth every evening - gabapentin 400 mg by mouth three times a day - ibuprofen 600 mg by mouth twice a day as needed for pain - Zofran 4 mg by mouth daily as needed for nausea - Protonix 40 mg by mouth daily - prazosin 3 mg by mouth at bedtime - Seroquel 300 mg by mouth at bedtime - sucralfate 1 gram by mouth twice a day - tamsulosin 0.4 mg by mouth daily - Admelog SoloStar one dose subcu three times a day per sliding scale - Asmanex 220 mcg one inhalation every morning - Basaglar KwikPen 18 units subcu every morning - docusate calcium 240 mg by mouth at bedtime - Breo Ellipta 100/25 one inhalation daily - ramipril 5 mg by mouth daily - trazodone 100 mg by mouth at bedtime - Triumeq 600-50-300 one by mouth daily REVIEW OF SYSTEMS: No complaint of headache. No blurred or double vision. No fever. No chills. No tinnitus, no hoarseness. No difficulty swallowing. No lightheadedness or vertigo. Complains of some thrush still in his mouth for which he is getting nystatin. No lightheadedness or vertigo. Cardiovascular no complaints of chest pain, shortness of breath, palpitations or edema. Respiratory history of COPD. No complaints of hemoptysis. No orthopnea or wheeze. Gastrointestinal (GI) no nausea, vomiting or diarrhea. No hematochezia. No melena. No further complaints of abdominal pain. States it is much better. Genitourinary ()/rectal not done. Extremities no clubbing, cyanosis, or edema. Peripheral pulses equal and palpable bilaterally. Skin is warm and dry. PHYSICAL EXAMINATION: 52-year-old cooperative male in no acute distress. 69 inches, weight 75.3 kg, BMI 24.5, blood pressure 133/82, pulse 69, respirations 16, temperature 98.2. Patient is alert and oriented times three. Pupils equal and react to light. Extraocular muscles intact. Cornea and sclerae are clear. Conjunctivae are normal. No facial asymmetry. Pharynx there is some white thrush on the roof of the mouth, back of the tongue. Tongue is midline. Neck is supple without lymphadenopathy. No thyromegaly. No goiter. Chest clear to auscultation without wheeze or retraction. Heart is regular. Abdomen is benign. Bowel sounds are positive. /rectal not done. Extremities show equal strength. Full range of motion. No cyanosis, clubbing or edema. Peripheral pulses are equal and palpable bilaterally. Skin is warm and dry. IMPRESSION/PLAN: 1. Psychiatric plan per psychiatry. 2. Oral thrush. Continue nystatin oral suspension, 5 mL swish and swallow four times a day. 3. Insulin dependent diabetes. Restart Basaglar 18 units in the morning. Continue consistent carbohydrate diet. Continue fingerstick blood sugars. 4. History of chronic obstructive pulmonary disease (COPD). Albuterol as needed. 5. Hypertension. Continue ramipril. 6. HIV. Patient has had his home medication brought in which he will continue. 7. BPH. Continue Flomax 8. Continue follow-up with Dr. Moya as an outpatient.
[2018-10-19] MEDS ORDERED: AQUA100OI TOP (14:41)
[2018-10-19] MEDS ORDERED: NYST50SS SS (14:41)
--- NOTE | 2018-10-31 13:31 | MHDSPDOC ---
[facility] Discharge Summary Discharge Summary DATE OF ADMISSION: Oct 17, 2018 at 17:30 DATE OF DISCHARGE: Oct 19, 2018 at 16:13 DISCHARGE DIAGNOSES: 1. Bipolar disorder. 2. Post-traumatic stress disorder by history. 3. Pancreatitis. 4. Alcohol use disorder. REASON FOR ADMISSION: As per Dr. Oropeza's note on his Initial Psychiatric Evaluation: "He is 52 years old. Has history of chronic obstructive pulmonary disease (COPD), bipolar disorder, alcohol misuse, human immunodeficiency virus (HIV), hypertension, recurrent alcoholic pancreatitis. He sees Dr. Moya regularly. He was admitted to the inpatient psychiatry unit after he had been seen on consultation at [facility], the medicine service, admitted there initially, as he had had a relapse using alcohol early in the week, and had developed pancreatitis again, that was being treated. There was some concerns at the time that he had indicated suicidal thoughts or intents, and that he had tried taking an overdose of Seroquel, and threw up the medication immediately afterwards. When I saw him, on consult, he in fact denied that, and said that that was in answer to a hypothetical situation. Since there are discrepancies in the narrative, and he denies that he and his girlfriend broke up recently, which is also in the initial chart, it was decided to admit him for further evaluation, since there are concerns regarding his judgment and ability to maintain safety.' CONSULTANTS INVOLVED: None TREATMENT AND PROGRESS ON THE UNIT : When this assembly instructions writer initially evaluated the patient, he was laying in bed, but he was awake. He was happy to see me, as He had been my patient before. He said he was admitted because apparently there was a misunderstanding. A statt member asked him in the Emergency Room asked him what method would he choose if he would ever decide to kill himself and he said he would overdose, but he adamantly denied being suicidal or have overdosed. He said: "It doesn't make sense Dr. Boyd, I was ill, I was vomiting, so, how could I possibly have overdosed, I couldn't keep anything in my stomach" He said there were no problems between him and his girlfriend, that she had been coming to visit him at the [facility], that we had the records that could prove she had been here, at [facility]. When estate planner contacted the patient's girlfriend we were able to verify that she was OK with the patient, there were no problems, she was OK with him coming back home. She said that he was not feeling OK but it was secondary to his pancreatitis. The patient didn't show any signs or symptoms of PTSD, he didn't fulfill criteria for major depressive disorder. His mood and affect were normal, euthymic. He didn't report any suicidal or homicidal ideation ad he didn't exhibit psychotic symptoms. The patient was on Seroquel 300 mgs PO in HS, Prazosin 1 mg PO QHS, Bupropion 300 mgs PO daily, Gabapentin 400 mgs PO TID, Trazodone 200 mgs PO QHS plus medications other medical illnesses. HOSPITAL COURSE: As above DISCHARGE ASSESSMENT: Patient was not homicidal, not suicidal, he didn't exhibit paranoid or psychotic behavior. He didn't report/exhibit PTSD symptoms/signs. He was goal orientated :" I have to go home to take care of my bills". He didn't report medication side effects including those but not limited to EPS or NMS. MENTAL STATUS EXAMINATION ON DISCHARGE: Patient is a 52-year old male, who is alert, laying in bed,wearing hospital clothes, alert, cooperative, pleasant. Speech is normal, fluent, spontaneous, normal rate, tone and volume. Language skills are good. Thought processes including: intact, linear coherent. Thought content: goal orientated, wants to go home, to take care of his bills. He doesn't report suicidal or homicidal ideation, he denies thought delusions. Abstract reasoning, and computation: denies Description of associations: intact Description of abnormal or psychotic thoughts: He denies SI, denies HI, denies AV hallucinations, denies flashbacks/nightmares, intrusive thoughts, denies delusional thoughts. Judgment: Good Insight: Good. Orientation to x3. Recent and remote memory: intact. Attention span and concentration: good. Language: good. Fund of knowledge: average. Mood: euthymic. Affect: congruent with mood, bright affect. MEDICATIONS ON DISCHARGE: Scheduled (Asmanex 60 Metered Doses) 220 Mcg/Inh Aer, 1 PUFF INH QAM for SHORTNESS OF BREATH, (Reported) (Triumeq 600-50-300 mg) 1 Tab Tab, 1 TAB PO DAILY for , (Reported) (Admelog Solostar) 100 Unit/Ml Inj, 1 DOSE SC TID for PER SLIDING SCALE, (Reported) (Basaglar Kwikpen) 100 Unit/Ml Inj, 18 UNIT SC DAILY for , (Reported) Atorvastatin Calcium (Atorvastatin Calcium) 40 Mg Tab, 40 MG PO DAILY for , (Reported) Bupropion HCl (Bupropion HCl Xl) 300 Mg Tab, 300 MG PO DAILY for , (Reported) Clonidine Hcl (Catapres) 0.1 Mg Tab, 0.1 MG PO QPM for , (Reported) Docusate Calcium (Docusate Calcium) 240 Mg Cap, 240 MG PO QHS for , (Reported) Fluticasone/Vilanterol (Breo Ellipta 100-25 Mcg/INH) 1 Inh Inh, 1 PUFF INH DAILY for , (Reported) Gabapentin (Gabapentin) 400 Mg Cap, 400 MG PO TID for , (Reported) Nystatin (Nystatin Oral Susp) 5 Ml Susp, 5 ML SS QID for thrush, #1 Pantoprazole Sodium (Pantoprazole Sodium) 40 Mg Tab, 40 MG PO DAILY for HEARTB URN, (Reported) Prazosin Hcl (Prazosin HCl) 1 Mg Cap, 3 MG PO QHS for , (Reported) Quetiapine Fumerate (Quetiapine Fumarate) 300 Mg Tab, 300 MG PO QHS for , (Reported) Ramipril (Ramipril) 5 Mg Cap, 5 MG PO DAILY for , (Reported) Sucralfate (Carafate) 1 Gm Tab, 1 GM PO BID for , (Reported) PATIENT STATES HE CAN NOT SWALLOW THESE PILLS, WOULD LIKE THE LIQUID FORM Tamsulosin Hydrochloride (Flomax) 0.4 Mg Cap, 0.4 MG PO DAILY for , (Reported) Trazodone HCl (Trazodone HCl) 100 Mg Tab, 200 MG PO QHS for , (Reported) Scheduled PRN Albuterol Sulfate (Ventolin Hfa) 108 Mcg/Act Aer, 2 PUFF INH Q4H PRN for SHORTNESS OF BREATH, (Reported) Emollient Ointment (Aquaphor) 1 Dose/100 Gm Oint, 1 DOSE TOP Q6HP PRN for SYMPTOM RELIEF, #1 Ibuprofen (Ibuprofen) 600 Mg Tab, 600 MG PO BID PRN for PAIN, (Reported) Ondansetron HCl (Zofran) 4 Mg Tab, 4 MG PO DAILY PRN for NAUSEA, (Reported) PLAN/FOLLOWUP ARRANGEMENTS: Follow Up Care Education Label * Medical * [facility] * Established With This Provider Yes * Date Oct 27, 2018 * Time 09:00 * Follow Up Care Education Label * Mental Health Appt 1 * Established With This Provider Yes * Therapist BETH * Date Oct 20, 2018 * Time 08:30 * Address of Clinic or Practice [address] [place] [address] * Follow Up Care Education Label * Mental Health Appt 2 * Established With This Provider Yes * Therapist PRESLEY FUNES (MEDICATION [facility]) * Date Nov 10, 2018 * Time 11:00 * Address of Clinic or Practice [address] [place] [address] * The amount of time spent in the coordination of care for this patient was approximately 30 minutes. Medications Scheduled (Asmanex 60 Metered Doses) 220 Mcg/Inh Aer, 1 PUFF INH QAM for SHORTNESS OF BREATH, (Reported) (Triumeq 600-50-300 mg) 1 Tab Tab, 1 TAB PO DAILY for , (Reported) (Admelog Solostar) 100 Unit/Ml Inj, 1 DOSE SC TID for PER SLIDING SCALE, (Reported) (Basaglar Kwikpen) 100 Unit/Ml Inj, 18 UNIT SC DAILY for , (Reported) Atorvastatin Calcium (Atorvastatin Calcium) 40 Mg Tab, 40 MG PO DAILY for , (Reported) Bupropion HCl (Bupropion HCl Xl) 300 Mg Tab, 300 MG PO DAILY for , (Reported) Clonidine Hcl (Catapres) 0.1 Mg Tab, 0.1 MG PO QPM for , (Reported) Docusate Calcium (Docusate Calcium) 240 Mg Cap, 240 MG PO QHS for , (Reported) Fluticasone/Vilanterol (Breo Ellipta 100-25 Mcg/INH) 1 Inh Inh, 1 PUFF INH DAILY for , (Reported) Gabapentin (Gabapentin) 400 Mg Cap, 400 MG PO TID for , (Reported) Nystatin (Nystatin Oral Susp) 5 Ml Susp, 5 ML SS QID for thrush, #1 Pantoprazole Sodium (Pantoprazole Sodium) 40 Mg Tab, 40 MG PO DAILY for HEARTBURN, (Reported) Prazosin Hcl (Prazosin HCl) 1 Mg Cap, 3 MG PO QHS for , (Reported) Quetiapine Fumerate (Quetiapine Fumarate) 300 Mg Tab, 300 MG PO QHS for , (Reported) Ramipril (Ramipril) 5 Mg Cap, 5 MG PO DAILY for , (Reported) Sucralfate (Carafate) 1 Gm Tab, 1 GM PO BID for , (Reported) PATIENT STATES HE CAN NOT SWALLOW THESE PILLS, WOULD LIKE THE LIQUID FORM Tamsulosin Hydrochloride (Flomax) 0.4 Mg Cap, 0.4 MG PO DAILY for , (Reported) Trazodone HCl (Trazodone HCl) 100 Mg Tab, 200 MG PO QHS for , (Reported) Scheduled PRN Albuterol Sulfate (Ventolin Hfa) 108 Mcg/Act Aer, 2 PUFF INH Q4H PRN for SHORTNESS OF BREATH, (Reported) Emollient Ointment (Aquaphor) 1 Dose/100 Gm Oint, 1 DOSE TOP Q6HP PRN for SYMPTOM RELIEF, #1 Ibuprofen (Ibuprofen) 600 Mg Tab, 600 MG PO BID PRN for PAIN, (Reported) Ondansetron HCl (Zofran) 4 Mg Tab, 4 MG PO DAILY PRN for NAUSEA, (Reported) Allergies Coded Allergies: MS - Banana (Verified Allergy, Intermediate, HIVES, 10/28/12) JASON BOYD MD Oct 31, 2018 13:21
== END 2018-10-19 16:13 | disposition home or self-care (01) | DRG 753 ==
LOC: M PSY 17:30
PROVIDERS: ADMIT Psychiatry & Neurology Psychiatry; ATTEND Psychiatry & Neurology Psychiatry
DX: F31.9 Bipolar disorder, unspecified (principal); B20 Human immunodeficiency virus [HIV] disease; B37.0 Candidal stomatitis; J44.9 Chronic obstructive pulmonary disease, unspecified; K86.0 Alcohol-induced chronic pancreatitis; E11.9 Type 2 diabetes mellitus without complications; F43.10 Post-traumatic stress disorder, unspecified; F10.10 Alcohol abuse, uncomplicated; I10 Essential (primary) hypertension; F17.200 Nicotine dependence, unspecified, uncomplicated; E78.00 Pure hypercholesterolemia, unspecified; N40.0 Benign prostatic hyperplasia without lower urinary tract symptoms; Z63.0 Problems in relationship with spouse or partner; Z79.4 Long term (current) use of insulin; Z79.899 Other long term (current) drug therapy; Z91.018 Allergy to other foods

== ENCOUNTER → 2018-11-23 | Outpatient (REF) | payer OTHER ==
[~2018-11-23] MED LIST changes: +AQUA100OI TOP; +ASPI-1 PO; -ASPI325T PO; +NYST50SS SS; -SENN1TAB2 PO; +SENN1TAB40 PO
[2018-11-23 13:00] LABS: ALBUMIN 3.7 GM/DL (3.2-5.2); ALT/SGPT 26 U/L (12-78); BILIRUBIN,TOTAL 0.3 MG/DL (0.2-1.0); BLOOD UREA NITROGEN 16 MG/DL (7-18); CALCIUM LEVEL 9.1 MG/DL (8.5-10.1); CARBON DIOXIDE LEVEL 28 MEQ/L (21-32); CHLORIDE LEVEL 106 MEQ/L (98-107); CREATININE FOR GFR 1.46 MG/DL (0.70-1.30); GLOMERULAR FILTRATION RATE > 60.0 (>56); GLUCOSE, FASTING 143 MG/DL (70-100); POTASSIUM SERUM 4.1 MEQ/L (3.5-5.1); SODIUM LEVEL 140 MEQ/L (136-145); TOTAL PROTEIN 7.4 GM/DL (6.4-8.2)
[2018-11-23 13:04] LABS: HEMOGLOBIN A1c 6.6 %
[2018-11-24 14:13] LABS: % CD8 Pos Lymph 28.2 % (12.0-35.5); %CD4 Pos Lymphs 51.4 % (30.8-58.5); ABS Eosinophils 0.1 x10E3/uL (0.0-0.4); ABS Lymphs 2.9 x10E3/uL (0.7-3.1); ABS Monocytes 0.6 x10E3/uL (0.1-0.9); ABS Neutophils 1.7 x10E3/uL (1.4-7.0); Abs CD4 Helper 1491 /uL (359-1519); Abs CD8 Suppres 818 /uL (109-897); CD4/CD8 Ratio 1.82 (0.92-3.72); Eosinophils 2 % (Not Estab.); HCT 38.6 % (37.5-51.0); Immature Grans 0 % (Not Estab.); Lymphocytes 55 % (Not Estab.); MCH 31.2 pg (26.6-33.0); MCHC 33.7 g/dL (31.5-35.7); MCV 93 fL (79-97); Monocytes 12 % (Not Estab.); Neutrophils 31 % (Not Estab.); Platelets 234 x10E3/uL (150-379); RBC 4.17 x10E6/uL (4.14-5.80); RDW 16.6 % (12.3-15.4); WBC 5.2 x10E3/uL (3.4-10.8)
[2018-11-25 14:34] LABS: HIV-1 RNA PCR QUANT 2 LC550285 <20 copies/mL (.)
== END ==
LOC: M SFHCPLAZ 09:28
PROVIDERS: ATTEND Internal Medicine Infectious Disease
DX: E11.9 Type 2 diabetes mellitus without complications (principal); B20 Human immunodeficiency virus [HIV] disease

== ENCOUNTER 2019-01-08 14:14 | Emergency (ER) | payer OTHER ==
[~2019-01-08] VITALS: Ht 175.3 cm; Wt 72.7 kg
[2019-01-08] MEDS: THIAMINE 100 MG TAB PO SCH ×2 (09:00→21:13)
[~2019-01-08 14:14] MED LIST changes: +FOLIC ACID 1 MG TAB PO SCH; +MULTIVITAMINS/MINERALS THERAP 1 TAB PO SCH
[2019-01-08 14:42] LABS: HEMATOCRIT 41.3 % (42.0-52.0); HEMOGLOBIN 13.7 g/dl (13.5-17.5); MEAN CORPUSCULAR HEMOGLOBIN 31.9 pg (27.0-33.0); MEAN CORPUSCULAR HGB CONC 33.2 g/dl (32.0-36.5); MEAN CORPUSCULAR VOLUME 96.3 fl (80.0-96.0); PLATELET COUNT, AUTOMATED 216 10^3/uL (150-450); RED BLOOD COUNT 4.29 10^6/uL (4.30-6.10); WHITE BLOOD COUNT 4.8 10^3/uL (4.0-10.0)
[2019-01-08] MEDS ORDERED: LORazepam 2 MG/ML VIAL (J2060) IV STA (14:43)
[2019-01-08] MEDS ORDERED: LORazepam 2 MG TAB PO PRN (14:45)
[2019-01-08] MEDS ORDERED: NS 1,000 ML IV ONE (14:45)
[2019-01-08 15:15] LABS: ACETAMINOPHEN LEVEL < 2.0 UG/ML (10.0-30.0); ALBUMIN 3.3 GM/DL (3.2-5.2); ALT/SGPT 67 U/L (12-78); BILIRUBIN,DIRECT 0.2 MG/DL (0.0-0.2); BILIRUBIN,TOTAL 0.3 MG/DL (0.2-1.0); BLOOD UREA NITROGEN 13 MG/DL (7-18); CALCIUM LEVEL 8.5 MG/DL (8.5-10.1); CARBON DIOXIDE LEVEL 24 MEQ/L (21-32); CHLORIDE LEVEL 106 MEQ/L (98-107); CREATININE FOR GFR 1.23 MG/DL (0.70-1.30); ETHYL ALCOHOL (ETHANOL) 0.014 % (0.000-0.010); GLOMERULAR FILTRATION RATE > 60.0 (>56); GLUCOSE, FASTING 113 MG/DL (70-100); LIPASE 53 U/L (73-393); POTASSIUM SERUM 4.5 MEQ/L (3.5-5.1); SALICYLATE LEVEL 5.1 MG/DL (5.0-30.0); SODIUM LEVEL 138 MEQ/L (136-145); TOTAL PROTEIN 7.9 GM/DL (6.4-8.2)
[2019-01-08 16:42] LABS: AMPHETAMINES LEVEL URINE NEGATIVE (NEGATIVE); BARBITURATES URINE NEGATIVE (NEGATIVE); BENZODIAZEPINES URINE NEGATIVE (NEGATIVE); CANNABINOIDS URINE POSITIVE (NEGATIVE); COCAINE METABOLITE URINE POSITIVE (NEGATIVE); METHADONE URINE NEGATIVE (NEGATIVE); OPIATES URINE NEGATIVE (NEGATIVE); PHENCYCLIDINE URINE NEGATIVE (NEGATIVE)
[2019-01-08] MEDS ORDERED: HumaLOG INSULIN (NovoLOG) PER UNIT SC SCH (21:00)
[2019-01-08] MEDS ORDERED: DEXTROSE 50% 50 ML SYRINGE IV PRN (22:00)
[2019-01-08] MEDS ORDERED: PRAZOSIN 1 MG CAP PO SCH (22:00)
[2019-01-08] MEDS ORDERED: traZODone 100 MG TAB PO SCH (22:00)
[2019-01-08] MEDS ORDERED: GLUCAGON FOR INJ 1 MG VIAL (J1610) SC PRN (22:00)
[2019-01-08] MEDS ORDERED: cloNIDine 0.1 MG TAB PO ONE (22:00)
[2019-01-08] MEDS ORDERED: QUEtiapine FUMARATE 100 MG TAB PO ONE (22:00)
[2019-01-08] MEDS ORDERED: IBUPROFEN 600 MG TAB PO ONE (22:00)
[2019-01-08] MEDS ORDERED: GLUCOSE 4 GM CHEW TABLET PO PRN (22:00)
[2019-01-08 22:12] VITALS: BP 130/70
--- NOTE | 2019-01-09 05:48 | ECGEPIP ---
[facility] - ED Test Date: 2019-01-08 Pat Name: ROBBIE APRIL Department: Room: - Gender: Male Commutator Assembler: DREA : 1965 Requested By: Lana Sommers Order Number: [id number] Reading MD: Robbie Wilson Measurements Intervals [place] Rate: 89 P: 75 [place]: 129 QRS: 21 QRSD: 81 T: 50 QT: 348 QTc: 424 Interpretive Statements SINUS RHYTHM SIMILAR TO 11/08/17 Electronically Signed on 01-09-2019 5:48:20 EDT by Robbie Wilson
[2019-01-09 06:14] VITALS: BP 112/56
[2019-01-09] MEDS ORDERED: HumaLOG INSULIN (NovoLOG) PER UNIT SC SCH (07:30)
[2019-01-09] MEDS ORDERED: PRAZOSIN 1 MG CAP PO SCH (21:00)
== END 2019-01-09 06:30 ==
LOC: M ED 14:14
DX: R45.851 Suicidal ideations (principal); F10.10 Alcohol abuse, uncomplicated; E11.9 Type 2 diabetes mellitus without complications; I10 Essential (primary) hypertension; K21.9 Gastro-esophageal reflux disease without esophagitis; J44.9 Chronic obstructive pulmonary disease, unspecified; J45.909 Unspecified asthma, uncomplicated; B20 Human immunodeficiency virus [HIV] disease; Z86.73 Personal history of transient ischemic attack (TIA), and cerebral infarction without residual deficits; K92.9 Disease of digestive system, unspecified; Z91.018 Allergy to other foods; Z79.899 Other long term (current) drug therapy; Z79.51 Long term (current) use of inhaled steroids; Z79.4 Long term (current) use of insulin; Z91.5 Personal history of self-harm
CPT/HCPCS: 36415; 80048; 80076; 80307; 83690; 84443; 85027; 93005; 96374; 99284; G0480; J2060

== ENCOUNTER 2019-05-27 05:15 | Inpatient (IN) | payer MEDICAID, OTHER ==
[~2019-05-27] VITALS: Ht 175.3 cm; Wt 73.4 kg
[~2019-05-27 05:15] MED LIST changes: -FOLIC ACID 1 MG TAB PO SCH; -MULTIVITAMINS/MINERALS THERAP 1 TAB PO SCH; -OMEP40CA2 PO; +OMEP40CA97 PO; +SENN-53 PO; -SENN1TAB40 PO
[2019-05-27 06:34] LABS: HEMATOCRIT 33.9 % (42.0-52.0); HEMOGLOBIN 11.1 g/dl (13.5-17.5); MEAN CORPUSCULAR HEMOGLOBIN 32.6 pg (27.0-33.0); MEAN CORPUSCULAR HGB CONC 32.7 g/dl (32.0-36.5); MEAN CORPUSCULAR VOLUME 99.7 fl (80.0-96.0); PLATELET COUNT, AUTOMATED 207 10^3/uL (150-450); WHITE BLOOD COUNT 4.4 10^3/uL (4.0-10.0)
[2019-05-27 07:00] LABS: ACETAMINOPHEN LEVEL < 2.0 UG/ML (10.0-30.0); ALT/SGPT 29 U/L (12-78); BILIRUBIN,DIRECT < 0.1 MG/DL (0.0-0.2); BILIRUBIN,TOTAL 0.1 MG/DL (0.2-1.0); BLOOD UREA NITROGEN 12 MG/DL (7-18); CALCIUM LEVEL 8.3 MG/DL (8.5-10.1); CARBON DIOXIDE LEVEL 25 MEQ/L (21-32); CHLORIDE LEVEL 112 MEQ/L (98-107); CREATININE FOR GFR 1.36 MG/DL (0.70-1.30); ETHYL ALCOHOL (ETHANOL) 0.156 % (0.000-0.010); GLOMERULAR FILTRATION RATE > 60.0 (>56); GLUCOSE, FASTING 60 MG/DL (70-100); POTASSIUM SERUM 3.8 MEQ/L (3.5-5.1); SALICYLATE LEVEL 4.8 MG/DL (5.0-30.0); SODIUM LEVEL 144 MEQ/L (136-145); TOTAL PROTEIN 6.9 GM/DL (6.4-8.2)
--- NOTE | 2019-05-27 07:01 | ECGEPIP ---
[facility] - ED Test Date: 2019-05-27 Pat Name: NEGRO CHEN Department: Room: - Gender: Male Lamina Searcher: SB : 1965 Requested By: MABEL TAPIA Order Number: [id number] Reading MD: Loli Moss Measurements Intervals [place] Rate: 69 P: 72 [place]: 141 QRS: 24 QRSD: 103 T: 39 QT: 381 QTc: 409 Interpretive Statements SINUS RHYTHM DECREASED RATE 01/08/19 Electronically Signed on 05-27-2019 7:01:36 EDT by Loli Moss
[2019-05-27 07:04] LABS: AMPHETAMINES LEVEL URINE NEGATIVE (NEGATIVE); BARBITURATES URINE NEGATIVE (NEGATIVE); BENZODIAZEPINES URINE NEGATIVE (NEGATIVE); CANNABINOIDS URINE POSITIVE (NEGATIVE); COCAINE METABOLITE URINE NEGATIVE (NEGATIVE); METHADONE URINE NEGATIVE (NEGATIVE); OPIATES URINE NEGATIVE (NEGATIVE); PHENCYCLIDINE URINE NEGATIVE (NEGATIVE)
[2019-05-27] MEDS ORDERED: DOCU100C16 PO (12:17)
[2019-05-27] MEDS ORDERED: METF-839 PO (12:17)
[2019-05-27] MEDS ORDERED: traZODone 50 MG TAB PO PRN (13:15)
[2019-05-27] MEDS ORDERED: MAALOX 30 ML SUSP *UDC PO PRN (13:15)
[2019-05-27] MEDS ORDERED: LORazepam 2 MG TAB PO PRN (13:15)
[2019-05-27] MEDS ORDERED: MOM 30ML SUSPENSION UDC PO PRN (13:15)
[2019-05-27 15:13] VITALS: BP 121/86
[2019-05-27 16:03] VITALS: BP 121/86
[2019-05-27] MEDS ORDERED: DOCUSATE SODIUM 100 MG CAP PO PRN (16:15)
[2019-05-27] MEDS ORDERED: GLUCOSE 4 GM CHEW TABLET PO PRN (16:15)
[2019-05-27] MEDS ORDERED: ALBUTEROL 90 MCG/ACT 8GM HFA INHALER INH PRN (16:15)
[2019-05-27] MEDS ORDERED: ONDANSETRON 4 MG TAB (S0181) PO PRN (16:15)
[2019-05-27] MEDS: HumaLOG INSULIN (NovoLOG) PER UNIT SC SCH ×2 (17:30→21:00)
[2019-05-27] MEDS: metFORMIN (GLUCOPHAGE) 500 MG TAB PO SCH (18:15)
[2019-05-27] MEDS: FOLIC ACID 1 MG TAB PO SCH (18:16)
[2019-05-27] MEDS: SUCRALFATE SUSP 1GM/10ML UD PO SCH (18:16)
[2019-05-27] MEDS: MULTIVITAMINS/MINERALS THERAP 1 TAB PO SCH (18:16)
[2019-05-27] MEDS: THIAMINE 100 MG TAB PO SCH (21:13)
[2019-05-27] MEDS: cloNIDine 0.1 MG TAB PO SCH (21:13)
[2019-05-27] MEDS: PRAZOSIN 1 MG CAP PO SCH (21:13)
[2019-05-27] MEDS: QUEtiapine FUMARATE 100 MG TAB PO SCH (21:13)
[2019-05-27] MEDS: traZODone 100 MG TAB PO SCH (21:13)
[2019-05-28] MEDS: HumaLOG INSULIN (NovoLOG) PER UNIT SC SCH ×4 (06:07→20:43)
[2019-05-28 07:03] VITALS: BP 126/65
[2019-05-28] MEDS: metFORMIN (GLUCOPHAGE) 500 MG TAB PO SCH ×2 (07:37→17:03)
[2019-05-28] MEDS: SUCRALFATE SUSP 1GM/10ML UD PO SCH ×3 (07:37→17:03)
[2019-05-28] MEDS: TAMSULOSIN 0.4 MG CAP PO SCH (08:34)
[2019-05-28] MEDS: MULTIVITAMINS/MINERALS THERAP 1 TAB PO SCH (08:34)
[2019-05-28] MEDS: ATORVASTATIN 20 MG TAB PO SCH (08:34)
[2019-05-28] MEDS: THIAMINE 100 MG TAB PO SCH ×2 (08:34→20:42)
[2019-05-28] MEDS: RAMIPRIL 5 MG CAP PO SCH (08:34)
[2019-05-28] MEDS: FOLIC ACID 1 MG TAB PO SCH (08:34)
[2019-05-28] MEDS: PANTOPRAZOLE 40MG TAB (PROTONIX) PO SCH (08:34)
[2019-05-28] MEDS ORDERED: FLUBLOK(EGG FREE)(QUAD)INFLUENZA VACC 0.5ML SYRINGE (90682)18YRS&OLDER IM ONE (09:00)
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
--- NOTE | 2019-05-28 10:59 | HPEPDOC ---
[facility] Medical History & Physical Date of Admission May 28, 2019 Date of Service: May 28, 2019 History and Physical CHIEF COMPLAINT: Depression HISTORY OF PRESENT ILLNESS: 53-year-old male with past medical history of HIV, COPD, PTSD, hypertension, diabetes, hyperlipidemia, CVA, depression, admitted for worsening depression. He reports having poor sleep over the past few days, recent argument with his significant other, which made the depression, much worse and brought him here. He has multiple medical problems, all stable at this time, no active issues that need to be addressed. He denies any shortness of breath, chest pain, vomiting, abdominal pain, diarrhea. 10 point review of system was negative except for above PAST MEDICAL HISTORY: 1. COPD. 2. CVA. 3. Hypertension. 4. Diabetes mellitus. 5. PTSD. 6. HIV. 7. Hyperlipidemia PAST SURGICAL HISTORY: 1. None. SOCIAL HISTORY: Current smoker, 1 pack per day. Denies alcohol. Denies drug use FAMILY HISTORY: No family history of malignancy ALLERGIES: Please see below. HOME MEDICATIONS: Please see below. PHYSICAL EXAMINATION: VITAL SIGNS: Please see below. GENERAL: No distress HEENT: Normocephalic, atraumatic, moist mucous membranes NECK: Supple CARDIOVASCULAR EXAMINATION: S1, S2, no murmurs RESPIRATORY EXAMINATION: Clear to auscultation, no wheezing ABDOMINAL EXAMINATION: Soft, nontender, nondistended, positive bowel sounds EXTREMITIES: Range of motion intact SKIN: No rash NEUROLOGICAL EXAMINATION: Alert and oriented 3, no focal deficits PSYCHIATRIC EXAMINATION: Calm and cooperative LABORATORY DATA: See below. MICROBIOLOGY: Please see below. ASSESSMENT: 53-year-old male with past medical history of depression, hypertension, COPD, HIV, diabetes, PTSD, CVA is admitted for worsening depression.. . PLAN: 1. HIV. Continue home meds. 2. COPDstable, continue home meds. 3. Hypertensioncontinue home meds with hold parameters. 4. Chronic kidney diseaserecommend avoiding NSAIDs if possible 5. Diabetes mellituscontinue metformin and sliding scale insulin. 6. CVAcontinue aspirin and statin. 7. Hyperlipidemiacontinue statin. 8. Depressionmanagement as per psychiatry. Vital Signs Vital Signs Date Time Temp Pulse Resp B/P (MAP) Pulse Ox O2 Delivery O2 Flow Rate FiO2 05/28/19 08:34 134/65 05/28/19 07:03 97.9 50 16 05/27/19 15:13 98 Room Air Laboratory Data Labs 24H Laboratory Tests 2 05/27/19 17:23: Bedside Glucose (Misc Panel) 89 05/27/19 21:10: Bedside Glucose (Misc Panel) 124H 05/28/19 06:02: Bedside Glucose (Misc Panel) 97 Home Medications Scheduled Abacavir/Dolutegravir/Lamivudi (Triumeq 600-50-300 mg Tablet) 1 Tab Tab, 1 TAB PO DAILY for Atorvastatin Calcium (Atorvastatin Calcium) 40 Mg Tab, 40 MG PO DAILY for Bupropion HCl (Bupropion Xl) 300 Mg Tab, 300 MG PO DAILY for Clonidine Hcl (Clonidine HCl) 0.1 Mg Tab, 0.1 MG PO QHS for Fluticasone/Vilanterol (Breo Ellipta 100-25 Mcg INH) 1 Inh Inh, 1 PUFF INH DAILY for Insulin Lispro (Admelog Solostar) 100 Unit/Ml Inj, 1 DOSE SC AC for PER SLIDING SCALE Metformin HCl (Metformin HCl) 500 Mg Tablet, 500 MG PO BID Pantoprazole Sodium (Pantoprazole Sodium) 40 Mg Tab, 40 MG PO DAILY for HEARTBURN Prazosin Hcl (Prazosin HCl) 1 Mg Cap, 3 MG PO QHS for Quetiapine Fumarate (Quetiapine Fumarate) 300 Mg Tab, 300 MG PO QHS for Ramipril (Ramipril) 5 Mg Cap, 5 MG PO DAILY for Sucralfate (Sucralfate) 1 Gm Tab, 1 GM PO AC for Tamsulosin HCl (Flomax) 0.4 Mg Cap, 0.4 MG PO DAILY for Trazodone HCl (Trazodone HCl) 100 Mg Tab, 200 MG PO QHS for Scheduled PRN Albuterol Sulfate (Ventolin Hfa) 108 Mcg/Act Aer, 2 PUFF INH Q4H PRN for SHORTNESS OF BREATH Docusate Sodium (Docusate Sodium) 100 Mg Capsule, 100 MG PO DAILY PRN for CONSTIPATION Ibuprofen (Ibuprofen) 600 Mg Tab, 600 MG PO BID PRN for PAIN Ondansetron HCl (Zofran) 4 Mg Tab, 4 MG PO DAILY PRN for NAUSEA Allergies Coded Allergies: banana (Verified Allergy, Intermediate, HIVES, 01/08/19) A-FIB/CHADSVASC A-FIB History Current/History of A-Fib/PAF?: No LOGAN LAMBERT MD May 28, 2019 10:59
[2019-05-28 13:08] VITALS: BP 156/90
[2019-05-28 16:09] VITALS: BP 135/74
[2019-05-28] MEDS: ACETAMINOPHEN TAB 650MG DOSE (2X325MG) PO PRN (17:04)
[2019-05-28] MEDS: traZODone 100 MG TAB PO SCH (20:40)
[2019-05-28] MEDS: PRAZOSIN 1 MG CAP PO SCH (20:40)
[2019-05-28] MEDS: QUEtiapine FUMARATE 100 MG TAB PO SCH (20:42)
[2019-05-28] MEDS: cloNIDine 0.1 MG TAB PO SCH (20:42)
[2019-05-28] MEDS: IBUPROFEN 600 MG TAB PO PRN (20:45)
[2019-05-29] MEDS: SUCRALFATE SUSP 1GM/10ML UD PO SCH ×3 (06:34→17:18)
[2019-05-29] MEDS: HumaLOG INSULIN (NovoLOG) PER UNIT SC SCH ×2 (06:56→12:15)
[2019-05-29 07:04] VITALS: BP 117/72
[2019-05-29] MEDS: RAMIPRIL 5 MG CAP PO SCH (07:55)
[2019-05-29] MEDS: PANTOPRAZOLE 40MG TAB (PROTONIX) PO SCH (07:55)
[2019-05-29] MEDS: ATORVASTATIN 20 MG TAB PO SCH (07:55)
[2019-05-29] MEDS: metFORMIN (GLUCOPHAGE) 500 MG TAB PO SCH ×2 (07:56→17:18)
[2019-05-29] MEDS: FOLIC ACID 1 MG TAB PO SCH (07:56)
[2019-05-29] MEDS: TAMSULOSIN 0.4 MG CAP PO SCH (07:56)
[2019-05-29] MEDS: THIAMINE 100 MG TAB PO SCH ×2 (07:56→20:51)
[2019-05-29] MEDS: ACETAMINOPHEN TAB 650MG DOSE (2X325MG) PO PRN (07:56)
[2019-05-29] MEDS: MULTIVITAMINS/MINERALS THERAP 1 TAB PO SCH (07:56)
[2019-05-29 09:45] VITALS: BP 110/62
[2019-05-29 10:46] VITALS: BP 110/62
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
--- NOTE | 2019-05-29 15:18 | IPNPDOC ---
Subjective Date Seen The patient was seen on 05/29/19. Subjective Chief Complaint/HPI Called by nursing staff from inpatient mental health unit patient became hypoglycemic with blood sugar of 50. He was given orange juice and crackers and his blood sugar increased to 71. When interviewed and examined patient. He offers no new complaints, no sweating, headache, confusion, dizziness. General: Reports: ROS Unobtainable Constitutional: Reports: Chills Eyes: Reports: Pain ENT: Reports: Head Aches Skin: Reports: Rash Pulmonary: Reports: Dyspnea Cardiovascular: Reports: Chest Pain Gastrointestinal: Reports: Nausea Musculoskeletal: Reports: Neck Pain Neurological: Reports: Weakness Objective Physical Examination General Exam: Positive: Alert, Cooperative Eye Exam: Positive: PERRLA, Conjunctiva & lids normal ENT Exam: Positive: Atraumatic, Mucous membr. moist/pink Neck Exam: Positive: Supple Chest Exam: Positive: Clear to auscultation, Normal air movement Heart Exam: Positive: Rate Normal, Normal S1, Normal S2 Abdomen Exam: Positive: Normal bowel sounds, Soft Extremity Exam: Positive: Normal pulses Skin Exam: Positive: Nl turgor and temperature Neuro Exam: Positive: Normal Gait, Strength at 5/5 X4 ext, Sensation Intact Assessment /Plan Problems (1) Hypoglycemia Status: Acute Problem Text: According to patient, he was diagnosed with diabetes type 2. Last May. He is been taken Glucophage ever since. . He does not remember what he had hemoglobin A1c was on diagnosis. I'm not sure whether patient has a true diabetes or hyperglycemia secondary to side effect on his psych meds . I will repeat hemoglobin A1c to confirm the diagnosis of diabetes mellitus in the meantime, we will DC fingerstick blood sugar and coverage. 8. He does not requireit. Patient's fingerstick was 60 on presentation on the first day at maximum. He might require only Glucophage, but without any insulin coverage. . He was also found to be on a regular diet. If his hemoglobin see is high, I will switch her to carbohydrate consistent diet in a.m Level work ordered for tomorrow and will follow patient tomorrow morning Management discussed with patient and the nursing staff if the unit. Plan/VTE VTE Prophylaxis Ordered?: No VTE Exclusion Mechanical Proph: Low Risk for VTE VTE Exclusion Pharmacological: At Low Risk for VTE VS, I&O, 24H, Fishbone Vital Signs/I&O Vital Signs Date Time Temp Pulse Resp B/P (MAP) Pulse Ox O2 Delivery O2 Flow Rate FiO2 05/29/19 10:46 58 110/62 05/29/19 07:04 98.0 16 05/27/19 15:13 98 Room Air Laboratory Data 24H LABS Laboratory Tests 2 05/28/19 16:59: Bedside Glucose (Misc Panel) 112H 05/28/19 20:41: Bedside Glucose (Misc Panel) 142H 05/29/19 06:25: Bedside Glucose (Misc Panel) 118H 05/29/19 12:12: Bedside Glucose (Misc Panel) 210H 05/29/19 14:09: Bedside Glucose (Misc Panel) 50L 05/29/19 14:34: Bedside Glucose (Misc Panel) 71 GERA GARNER MD May 29, 2019 15:17
[2019-05-29 16:14] VITALS: BP 119/65
[2019-05-29 16:37] LABS: ALT/SGPT 23 U/L (12-78); BILIRUBIN,TOTAL 0.2 MG/DL (0.2-1.0); BLOOD UREA NITROGEN 16 MG/DL (7-18); CALCIUM LEVEL 8.7 MG/DL (8.5-10.1); CARBON DIOXIDE LEVEL 30 MEQ/L (21-32); CHLORIDE LEVEL 105 MEQ/L (98-107); CREATININE FOR GFR 1.29 MG/DL (0.70-1.30); GLOMERULAR FILTRATION RATE > 60.0 (>56); GLUCOSE, FASTING 52 MG/DL (70-100); POTASSIUM SERUM 4.6 MEQ/L (3.5-5.1); SODIUM LEVEL 138 MEQ/L (136-145); TOTAL PROTEIN 6.8 GM/DL (6.4-8.2)
[2019-05-29] MEDS: traZODone 100 MG TAB PO SCH (20:50)
[2019-05-29] MEDS: PRAZOSIN 1 MG CAP PO SCH (20:51)
[2019-05-29] MEDS: QUEtiapine FUMARATE 100 MG TAB PO SCH (20:51)
[2019-05-29] MEDS: cloNIDine 0.1 MG TAB PO SCH (20:51)
[2019-05-30] MEDS: SUCRALFATE SUSP 1GM/10ML UD PO SCH ×3 (06:33→17:05)
[2019-05-30 06:47] VITALS: BP 134/83
[2019-05-30 06:53] LABS: HEMOGLOBIN A1c 6.6 %
[2019-05-30] MEDS: metFORMIN (GLUCOPHAGE) 500 MG TAB PO SCH ×2 (07:51→17:04)
[2019-05-30] MEDS: ATORVASTATIN 20 MG TAB PO SCH (08:14)
[2019-05-30] MEDS: MULTIVITAMINS/MINERALS THERAP 1 TAB PO SCH (08:14)
[2019-05-30] MEDS: TAMSULOSIN 0.4 MG CAP PO SCH (08:14)
[2019-05-30] MEDS: RAMIPRIL 5 MG CAP PO SCH (08:14)
[2019-05-30] MEDS: THIAMINE 100 MG TAB PO SCH (08:14)
[2019-05-30] MEDS: FOLIC ACID 1 MG TAB PO SCH (08:14)
[2019-05-30] MEDS: PANTOPRAZOLE 40MG TAB (PROTONIX) PO SCH (08:14)
[2019-05-30 11:50] VITALS: BP 116/62
[2019-05-30] MEDS: IBUPROFEN 600 MG TAB PO PRN (12:17)
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
[2019-05-30 16:27] VITALS: BP 149/68
[2019-05-30] MEDS: ACETAMINOPHEN TAB 650MG DOSE (2X325MG) PO PRN (21:23)
[2019-05-30] MEDS: PRAZOSIN 1 MG CAP PO SCH (21:24)
[2019-05-30] MEDS: traZODone 100 MG TAB PO SCH (21:25)
[2019-05-30] MEDS: QUEtiapine FUMARATE 100 MG TAB PO SCH (21:25)
[2019-05-30] MEDS: cloNIDine 0.1 MG TAB PO SCH (21:25)
[2019-05-31 06:36] VITALS: BP 120/58
[2019-05-31] MEDS: SUCRALFATE SUSP 1GM/10ML UD PO SCH ×2 (08:11→11:28)
[2019-05-31 08:12] VITALS: BP 120/58
[2019-05-31] MEDS: RAMIPRIL 5 MG CAP PO SCH (08:12)
[2019-05-31] MEDS: TAMSULOSIN 0.4 MG CAP PO SCH (08:12)
[2019-05-31] MEDS: ATORVASTATIN 20 MG TAB PO SCH (08:12)
[2019-05-31] MEDS: metFORMIN (GLUCOPHAGE) 500 MG TAB PO SCH (08:12)
[2019-05-31] MEDS: MULTIVITAMINS/MINERALS THERAP 1 TAB PO SCH (08:12)
[2019-05-31] MEDS: PANTOPRAZOLE 40MG TAB (PROTONIX) PO SCH (08:12)
[2019-05-31] MEDS: FOLIC ACID 1 MG TAB PO SCH (08:12)
[2019-05-31] MEDS: ACETAMINOPHEN TAB 650MG DOSE (2X325MG) PO PRN (08:13)
[2019-05-31] MEDS ORDERED: TRAZ-163 PO (09:43)
[2019-05-31] MEDS ORDERED: QUET1TAB10 PO (09:43)
[2019-05-31] MEDS ORDERED: PRAZ1CAP PO (09:43)
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
== END 2019-05-31 12:45 | disposition home or self-care (01) | DRG 775 ==
LOC: M ED 05:15 → M ED INP 13:05 → M PSY 15:14
PROVIDERS: ADMIT Psychiatry & Neurology Psychiatry; ATTEND Psychiatry & Neurology Psychiatry
DX: F10.14 Alcohol abuse with alcohol-induced mood disorder (principal); E11.22 Type 2 diabetes mellitus with diabetic chronic kidney disease; Z21 Asymptomatic human immunodeficiency virus [HIV] infection status; F12.10 Cannabis abuse, uncomplicated; F43.10 Post-traumatic stress disorder, unspecified; F60.3 Borderline personality disorder; F60.2 Antisocial personality disorder; F17.200 Nicotine dependence, unspecified, uncomplicated; G43.909 Migraine, unspecified, not intractable, without status migrainosus; E78.5 Hyperlipidemia, unspecified; J45.909 Unspecified asthma, uncomplicated; K21.9 Gastro-esophageal reflux disease without esophagitis; N18.9 Chronic kidney disease, unspecified; I12.9 Hypertensive chronic kidney disease with stage 1 through stage 4 chronic kidney disease, or unspecified chronic kidney disease; Z87.440 Personal history of urinary (tract) infections; Z96.651 Presence of right artificial knee joint; Z81.8 Family history of other mental and behavioral disorders; Z81.3 Family history of other psychoactive substance abuse and dependence; Z79.4 Long term (current) use of insulin; Z87.442 Personal history of urinary calculi; Z79.899 Other long term (current) drug therapy; Z91.018 Allergy to other foods; Z86.73 Personal history of transient ischemic attack (TIA), and cerebral infarction without residual deficits; Z79.82 Long term (current) use of aspirin

== ENCOUNTER 2019-07-03 16:19 | Emergency (ER) | payer MEDICAID, OTHER ==
[~2019-07-03] VITALS: Ht 175.3 cm; Wt 68.4 kg
[~2019-07-03 16:19] MED LIST changes: +DOCU100C16 PO; +METF-839 PO
[2019-07-03] MEDS ORDERED: GABA-845 PO (16:38)
[2019-07-03] MEDS ORDERED: DOK1CAP7 PO (16:38)
[2019-07-03] MEDS ORDERED: BUPR300T34 PO (16:38)
[2019-07-03] MEDS ORDERED: MORPHINE 4 MG/ML 1ML VIAL/SYRINGE (J2270) IV PRN (17:00)
[2019-07-03] MEDS ORDERED: ONDANSETRON 4MG/2ML VIAL (J2405) IV ONE (17:00)
[2019-07-03] MEDS ORDERED: PHENYLEPHRINE INJ 10MG/ML VIAL (J2370) SQ ONE (17:00)
[2019-07-03] MEDS ORDERED: LIDOCAINE 1% MDV 20ML VIAL IM ONE (17:00)
[2019-07-03 17:27] LABS: BASO % 0.7 % (0.0-1.0); EOS # 0.1 10^3/uL (0.0-0.5); EOS % 1.6 % (0.0-3.0); HEMATOCRIT 38.2 % (42.0-52.0); HEMOGLOBIN 12.2 g/dl (13.5-17.5); LYMPH % 23.5 % (24.0-44.0); MEAN CORPUSCULAR HEMOGLOBIN 32.1 pg (27.0-33.0); MEAN CORPUSCULAR HGB CONC 31.9 g/dl (32.0-36.5); MEAN CORPUSCULAR VOLUME 100.5 fl (80.0-96.0); MONO # 0.6 10^3/uL (0.0-0.8); MONO % 13.1 % (0.0-5.0); NEUTROPHILS # 2.7 10^3/uL (1.5-8.5); NEUTROPHILS % 60.6 % (36.0-66.0); PLATELET COUNT, AUTOMATED 191 10^3/uL (150-450); WHITE BLOOD COUNT 4.4 10^3/uL (4.0-10.0)
[2019-07-03 17:41] LABS: INR 1.02; PROTHROMBIN TIME 13.1 SECONDS (11.8-14.0)
[2019-07-03 17:43] LABS: VENOUS BASE EXCESS -7.5 (-2.0-2.0); VENOUS HCO3 26.1 MEQ/L (23.0-27.0); VENOUS O2 SATURATION 28.2 % (60.0-80.0); VENOUS PARTIAL PRESSURE CO2 96.2 mmHg (38.0-50.0); VENOUS PARTIAL PRESSURE O2 21.9 mmHg (30.0-50.0); VENOUS PH 7.052 UNITS (7.330-7.430); VENOUS STANDARD HCO3 16.8 MEQ/L; VENOUS TOTAL CO2 29.1 MEQ/L (24.0-28.0)
[2019-07-03 17:51] LABS: ALBUMIN 3.2 GM/DL (3.2-5.2); ALT/SGPT 44 U/L (12-78); BILIRUBIN,TOTAL 0.3 MG/DL (0.2-1.0); BLOOD UREA NITROGEN 10 MG/DL (7-18); CALCIUM LEVEL 8.4 MG/DL (8.5-10.1); CARBON DIOXIDE LEVEL 28 MEQ/L (21-32); CHLORIDE LEVEL 111 MEQ/L (98-107); CREATININE FOR GFR 1.36 MG/DL (0.70-1.30); GLOMERULAR FILTRATION RATE > 60.0 (>56); GLUCOSE, FASTING 99 MG/DL (70-100); POTASSIUM SERUM 4.2 MEQ/L (3.5-5.1); SODIUM LEVEL 143 MEQ/L (136-145)
[2019-07-03 18:28] VITALS: BP 131/68
--- NOTE | 2019-07-03 18:41 | SMCUROLCON ---
Urology Consultation General Date of Consultation 07/03/19 Reason For Consultation This patient is seen for Med Reaction. History of Present Illness The patient is a 53-year-old male with a past medical history for Trazedone related priapism requiring aspiration/irrigation presents after taking Trazedone for insomnia last night and awakening this am with a painful erection at 10 am - he presented 6.5 hours later. He has controlled HIV disease and AODM. 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 Past Medical History Medical History HIV; AODM Surgical Hstory See ER notes; Priapism ~ 10 years ago Family History Significant Family History: No pertinent family hx Social History Social History Single, disabled * Smoker: former Smoker Alcohol: rarely Medications Current Medications Current Medications Medications (Trade) Dose Ordered Sig/Abhilash Route PRN Reason Start Time Stop Time Status Last Admin Dose Admin Morphine Sulfate (Morphine Sulfate Inj) 4 mg Q30M PRN IV SEVERE PAIN (PS 8-10) 07/03/19 17:00 07/03/19 17:44 Allergies Allergies: Coded Allergies: banana (Verified Allergy, Intermediate, HIVES, 01/08/19) Review of Systems General: Denies: ROS Unobtainable, Chills, Night Sweats, Fatigue, Malaise, Normal Appetite, Other Symptoms Constitutional: Denies: Fever, Chills, Sweats, Weakness, Malaise, Other Eyes: Denies: Pain, Vision change, Conjunctivae inflammation, Eyelid inflammation, Redness, Other ENT: Denies: Head Aches, Ear Pain, Dysphagia, Sinus Congestion, Post Nasal Drip, Sore Throat, Epistaxis, Other Symptoms Skin: Denies: Rash, Lesions, Jaundice, Bruising, Itching, Dry, Breakdown, Nail Changes, Other Pulmonary: Denies: Dyspnea, Cough, Pleuritic Chest Pain, Other Symptoms Cardiovascular: Denies Chest Pain, Denies Palpitations, Denies Orthopnea, Denies Paroxysmal Noc. Dyspnea, Denies Edema, Denies Lt Headedness, Denies Other Symptoms Gastrointestinal: Denies: Nausea, Vomiting, Abdominal Pain, Diarrhea, Constipation, Melena, Hematochezia, Other Symptoms Genitourinary: Reports: Other Symptoms; Denies: Dysuria, Frequency, Incontinence, Hematuria, Retention Hematologic: Denies: Bruising, Bleeding Excessively, Petecchia, Purpura, Enlarged Lymph Nodes, Other Hematologic Endocrine: Denies: Polydipsia, Polyphagia, Polyuria, Heat Intolerance, Cold Intolerance, Other Endocrine Sx Musculoskeletal: Reports: Back Pain Neurological: Denies: Weakness, Numbness, Incoordination, Change in Speech, Confusion, Seizures, Other Symptoms Psych: Reports: Mood Normal, Anxiety Physical Examination General Exam: Alert, Cooperative, No Acute Distress, Moderate Distress EYE EXAM: PERRLA, Conjunctiva & lids normal, EOMI ENT EXAM: Atraumatic Neck Exam: Supple Chest Exam: Normal air movement Heart Exam: Rate Normal, Regular Rhythm Abdomen Exam: Normal Bowel Sounds Male Exam tense, tender priapism with 10 degrees upward curvature Extremity Exam: No: Clubbing, Cyanosis, Edema, Normal Pulses, Tenderness, Swelling, Other Skin Exam: No: Nl turgor and temperature, Rash, Breakdown, Lesion, Pruritus, Other skin issue Neuro Exam: Normal Speech, Normal Tone, Sensation Intact, Cranial Nerves 3-12 NL Psych Exam: Mental status NL, Anxiety, Oriented x 3 Vital Signs/I&O Vital Signs Date Time Temp Pulse Resp B/P (MAP) Pulse Ox O2 Delivery O2 Flow Rate FiO2 07/03/19 17:44 18 07/03/19 16:38 07/03/19 16:20 98.2 76 99 Room Air Laboratory Data 24H Labs Laboratory Tests 2 07/03/19 17:08: Immature Granulocyte % (Auto) 0.5, Neutrophils (%) (Auto) 60.6, Lymphocytes (%) (Auto) 23.5L, Monocytes (%) (Auto) 13.1H, Eosinophils (%) (Auto) 1.6, Basophils (%) (Auto) 0.7, Neutrophils # (Auto) 2.7, Lymphocytes # (Auto) 1.0L, Monocytes # (Auto) 0.6, Eosinophils # (Auto) 0.1, Basophils # (Auto) 0.0, Nucleated Red Blood Cells % (auto) 0.0, Prothrombin Time 13.1, Prothromb Time International Ratio 1.02, Anion Gap 4L, Glomerular Filtration Rate > 60.0, Calcium Level 8.4L, Total Bilirubin 0.3, Aspartate Amino Transf (AST/SGOT) 29, Alanine Aminotransferase (ALT/SGPT) 44, Alkaline Phosphatase 70, Total Protein 7.0, Albumin 3.2, Albumin/Globulin Ratio 0.84L 07/03/19 17:35: Blood Gas Bicarbonate Standard 16.8, Venous Blood pH 7.052L, Venous Blood Partial Pressure CO2 96.2H, Venous Blood Partial Pressure O2 21.9L, Venous Blood Total Carbon Dioxide 29.1H, Venous Blood HCO3 26.1, Venous Blood Oxygen Saturation 28.2L, Venous Blood Base Excess -7.5L CBC/BMP Laboratory Tests 07/03/19 17:08 Assessment A: Trazedone related Priapism; Moderate penile acidosis and ischemia Plan P: Aspiration/Phenylephrine irrigation - successful. Home, Return prn recurrence. No further use of trazodone Time Spent on Consult: Time Spent / Consult (Minutes): 100 DREAD BRIONES MD Jul 03, 2019 18:41
--- NOTE | 2019-07-03 18:48 | ROOPDOC ---
[facility] Report Of Operation Report of Operation DATE OF PROCEDURE: 07/03/19 PREPROCEDURE DIAGNOSES: [Priapism]. POSTPROCEDURE DIAGNOSES: [same]. PROCEDURE: [Penile aspiration/irrigation with phenylephrine]. SURGEON: [Dread Bettencourt], [employer] PAYABLE PAYROLL COORDINATOR: , ANESTHESIA: [local]. ESTIMATED BLOOD LOSS: Approximately [200] mL. COMPLICATIONS: [none]. REMARKS: . PROCEDURE NOTE: . DESCRIPTION OF PROCEDURE: After informed consent, the R penis was prepped and anesthetized with 2 ml of 1% Lidocaine. An 18 ga needle was placed into the R corporal body and venous gas obtained. Dark blood was aspirated until it reddened. Dilute phenylephrine was instilled in 6 10ml increments with irrigation and re- aspiration. No tachycardia was noted to occur. There was resolution of the priapism and the needle was removed. No recurrent firmness developed after 30 min observation. The pt was released with resolution of erection and associated pain. DREAD BETTENCOURT MD Jul 03, 2019 18:48
== END 2019-07-03 18:53 | disposition home or self-care (01) ==
LOC: M ED 16:19
DX: N48.33 Priapism, drug-induced (principal); E11.9 Type 2 diabetes mellitus without complications; J44.9 Chronic obstructive pulmonary disease, unspecified; I10 Essential (primary) hypertension; F33.9 Major depressive disorder, recurrent, unspecified; E78.9 Disorder of lipoprotein metabolism, unspecified; B20 Human immunodeficiency virus [HIV] disease; Z79.899 Other long term (current) drug therapy; Z79.4 Long term (current) use of insulin; Z91.018 Allergy to other foods; F17.210 Nicotine dependence, cigarettes, uncomplicated
CPT/HCPCS: 54200; 80053; 82803; 85025; 85610; 96374; 96375; 99285; J2270; J2370; J2405

== ENCOUNTER → 2019-08-10 | Outpatient (REF) | payer OTHER ==
[~2019-08-10] MED LIST changes: -BUPR300T34 PO; +BUPR300T92 PO; +DOK1CAP7 PO; -TRAZ-163 PO; +TRAZ-257 PO; -TRAZ10TA PO; +TRAZ1TAB12 PO
[2019-08-10 13:26] LABS: ALBUMIN 3.5 GM/DL (3.2-5.2); ALT/SGPT 25 U/L (12-78); BILIRUBIN,TOTAL 0.3 MG/DL (0.2-1.0); BLOOD UREA NITROGEN 11 MG/DL (7-18); CALCIUM LEVEL 8.9 MG/DL (8.5-10.1); CARBON DIOXIDE LEVEL 27 MEQ/L (21-32); CHLORIDE LEVEL 105 MEQ/L (98-107); CHOLESTEROL LEVEL 226 MG/DL (<200); CHOLESTEROL RISK RATIO 1.625 (<5); CREATININE FOR GFR 1.32 MG/DL (0.70-1.30); GLOMERULAR FILTRATION RATE > 60.0 (>56); GLUCOSE, FASTING 81 MG/DL (70-100); HDL CHOLESTEROL 139 MG/DL (>40); LDL CHOLESTEROL 78 MG/DL (<100); NON-HDL-C 87 MG/DL; POTASSIUM SERUM 4.4 MEQ/L (3.5-5.1); SODIUM LEVEL 140 MEQ/L (136-145); TOTAL PROTEIN 7.6 GM/DL (6.4-8.2); TRIGLYCERIDES LEVEL 46 MG/DL (<150)
[2019-08-10 14:32] LABS: HEMOGLOBIN A1c 6.2 %
[2019-08-13 00:07] LABS: % CD8 Pos Lymph 28.5 % (12.0-35.5); %CD4 Pos Lymphs 51.9 % (30.8-58.5); ABS Eosinophils 0.1 x10E3/uL (0.0-0.4); ABS Lymphs 1.5 x10E3/uL (0.7-3.1); ABS Monocytes 0.7 x10E3/uL (0.1-0.9); Abs CD4 Helper 779 /uL (359-1519); Abs CD8 Suppres 428 /uL (109-897); CD4/CD8 Ratio 1.82 (0.92-3.72); Eosinophils 2 % (Not Estab.); HCT 36.4 % (37.5-51.0); HGB 12.2 g/dL (13.0-17.7); HIV-1 RNA PCR QUANT 2 LC550285 <20 copies/mL (.); Immature Grans 0 % (Not Estab.); Lymphocytes 35 % (Not Estab.); MCH 31.3 pg (26.6-33.0); MCHC 33.5 g/dL (31.5-35.7); MCV 93 fL (79-97); Monocytes 16 % (Not Estab.); Neutrophils 46 % (Not Estab.); Platelets 201 x10E3/uL (150-450); RDW 13.7 % (11.6-15.4); WBC 4.3 x10E3/uL (3.4-10.8)
== END ==
LOC: M SFHCPLAZ 10:39
PROVIDERS: ATTEND Internal Medicine Infectious Disease
DX: E11.9 Type 2 diabetes mellitus without complications (principal); B20 Human immunodeficiency virus [HIV] disease

== ENCOUNTER 2019-09-07 14:35 | Emergency (ER) | payer OTHER ==
[~2019-09-07] VITALS: Ht 175.3 cm; Wt 67.0 kg
[2019-09-07] MEDS ORDERED: PSEUDOEPHEDRINE 30 MG TAB PO STA (16:40)
[2019-09-07 16:41] LABS: HEMATOCRIT 35.1 % (42.0-52.0); HEMOGLOBIN 11.5 g/dl (13.5-17.5); MEAN CORPUSCULAR HEMOGLOBIN 30.7 pg (27.0-33.0); MEAN CORPUSCULAR HGB CONC 32.8 g/dl (32.0-36.5); MEAN CORPUSCULAR VOLUME 93.9 fl (80.0-96.0); PLATELET COUNT, AUTOMATED 186 10^3/uL (150-450); RED BLOOD COUNT 3.74 10^6/uL (4.30-6.10); WHITE BLOOD COUNT 4.8 10^3/uL (4.0-10.0)
[2019-09-07] MEDS ORDERED: HYDROMORPHONE HCL 0.5 MG/ 0.5 ML SYRINGE (J1170 PER 1) IV ONE ×3 (16:45→19:30)
[2019-09-07 16:53] LABS: INR 1.01
[2019-09-07 16:54] LABS: PARTIAL THROMBOPLASTIN TIME 26.7 SECONDS (25.0-38.4)
[2019-09-07] MEDS ORDERED: NS 1,000 ML IV ONE (17:00)
[2019-09-07 17:02] LABS: BLOOD UREA NITROGEN 11 MG/DL (7-18); CALCIUM LEVEL 9.1 MG/DL (8.5-10.1); CARBON DIOXIDE LEVEL 28 MEQ/L (21-32); CHLORIDE LEVEL 106 MEQ/L (98-107); CREATININE FOR GFR 1.32 MG/DL (0.70-1.30); GLOMERULAR FILTRATION RATE > 60.0 (>56); GLUCOSE, FASTING 98 MG/DL (70-100); POTASSIUM SERUM 3.7 MEQ/L (3.5-5.1); SODIUM LEVEL 140 MEQ/L (136-145)
[2019-09-07] MEDS ORDERED: PHENYLephrine HCL 500 MCG/5 ML (100MCG/ML) SYRINGE (J2370) XX ONE (19:00)
--- NOTE | 2019-09-07 20:43 | SMCUROLCON ---
Urology Consultation General Date of Consultation 09/07/19 Reason For Consultation This patient is seen for Erection Pain. History of Present Illness This is a 53 y/o M w/ a PMH significant for HIV, CVA, migraines, HTN, bipolar affective disorder, alcoholism, chronic pancreatitis, and BPH, presenting to the ER w/ an erection since 10am this morning. The patient notes that he woke up at 10am w/ an erection and it did not go down. He noted increasing amounts of penile pain, which caused him to present to the ER. He took viagra last night and could not recall if he was still erect when he went to sleep. He has taken viagra previously w/ no issues. He has also had priapism 2 times previously, each time related to trazodone. He stopped taking trazodone after the last episode of priapism. With each previous episode, he required irrigation and phenylephrine injections. He denies a hx of sickle cell. He has not had any recent change in medications. He notes that he gets erections sometimes w/o viagra but when he has trouble he takes viagra and this usually works well for him and w/o any adverse effects. Past Medical History Medical History see HPI Surgical Hstory right knee surgery EGD Medications Current Medications Current Medications Medications (Trade) Dose Ordered Sig/Abhilash Route PRN Reason Start Time Stop Time Status Last Admin Dose Admin Pseudoephedrine HCl (Sudafed) 30 mg STAT STAT PO 09/07/19 16:40 09/07/19 16:41 DC 09/07/19 17:14 Allergies Allergies: Coded Allergies: banana (Verified Allergy, Intermediate, HIVES, 01/08/19) Review of Systems Constitutional: Denies: Fever, Chills, Sweats, Weakness, Malaise Skin: Denies: Rash, Lesions, Breakdown, Nail Changes Pulmonary: Denies: Dyspnea, Cough Cardiovascular: Denies Chest Pain, Denies Palpitations Gastrointestinal: Denies: Nausea, Vomiting, Abdominal Pain Genitourinary: Reports: Other Symptoms (prolonged erection, penile pain); Denies: Dysuria, Frequency, Incontinence, Hematuria, Retention Musculoskeletal: Denies: Neck Pain, Back Pain Psych: Reports: Mood Normal Physical Examination General Exam: Alert, Cooperative Chest Exam: Normal air movement Heart Exam: Rate Normal Abdomen Exam: Soft Male Exam uncircumcised phallus which is completely rigid and tender to touch; no penile lesions Skin Exam: Nl turgor and temperature Neuro Exam: Normal Speech Vital Signs/I&O Vital Signs Date Time Temp Pulse Resp B/P (MAP) Pulse Ox O2 Delivery O2 Flow Rate FiO2 09/07/19 19:45 98.2 88 18 152/90 100 Room Air Laboratory Data 24H Labs Laboratory Tests 2 09/07/19 16:32: Nucleated Red Blood Cells % (auto) 0.0, Prothrombin Time 13.0, Prothromb Time International Ratio 1.01, Activated Partial Thromboplast Time 26.7, Anion Gap 6L, Glomerular Filtration Rate > 60.0, Calcium Level 9.1 CBC/BMP Laboratory Tests 09/07/19 16:32 Assessment This is a 53 y/o M w/ a previous hx of priapism, presenting w/ another episode of priapism, likely related to him taking viagra yesterday evening. After no improvement w/ 30mg of pseudoephedrine PO, I recommended corporal aspiration and irrigation. This was done after providing the patient sufficient pain medication. Approximately 120cc of dark thick blood was aspirated from the phallus. 30cc of saline was then injected into the phallus and then more blood was aspirated out. This improved the patient's pain some. I then injected 100mcg of phenylephrine into the corpus cavernosum. After approximately 5 minutes the erection had gone down some. I decided to inject 200mcg of phenylephrine at this point into the corpus cavernosum and within 2-3 minutes the erection was down. During phenylephrine injections the patient's HR and BP were monitored and were stable. The patient tolerated this well. Plan - recommend monitoring the patient for another hour in the ED - if his erection stays down and his pain is improved, he can be discharged home - he should ice his phallus at least once daily for the next few days to help w/ edema - explained to the patient that he should no longer take any PDE5 inhibitors such as viagra, cialis, levitra, or stendra - if ED becomes a worsening problem for him and he wants treatment his best option would be an inflatable penile pr osthesis - he can f/u in urology clinic as needed CHADD FARIAS MD Sep 07, 2019 20:43
[2019-09-07 22:00] VITALS: BP 147/85
== END 2019-09-07 22:24 | disposition home or self-care (01) ==
LOC: M ED 14:35
DX: N48.30 Priapism, unspecified (principal); B20 Human immunodeficiency virus [HIV] disease; E11.9 Type 2 diabetes mellitus without complications; I10 Essential (primary) hypertension; F17.200 Nicotine dependence, unspecified, uncomplicated; Z79.4 Long term (current) use of insulin; Z79.51 Long term (current) use of inhaled steroids; Z79.899 Other long term (current) drug therapy; Z91.018 Allergy to other foods
CPT/HCPCS: 54200; 80048; 85027; 85610; 85730; 99284; J1170; J2370

== ENCOUNTER 2019-12-02 03:01 | Emergency (ER) | payer OTHER ==
[~2019-12-02] VITALS: Ht 175.3 cm; Wt 70.3 kg
[2019-12-02 03:34] LABS: BASO # 0.1 10^3/uL (0.0-0.2); BASO % 0.9 % (0.0-1.0); EOS # 0.1 10^3/uL (0.0-0.5); EOS % 2.1 % (0.0-3.0); HEMATOCRIT 35.9 % (42.0-52.0); HEMOGLOBIN 12.1 g/dl (13.5-17.5); LYMPH # 2.6 10^3/uL (1.5-5.0); LYMPH % 38.7 % (24.0-44.0); MEAN CORPUSCULAR HEMOGLOBIN 31.3 pg (27.0-33.0); MEAN CORPUSCULAR HGB CONC 33.7 g/dl (32.0-36.5); MONO # 0.7 10^3/uL (0.0-0.8); MONO % 9.8 % (0.0-5.0); NEUTROPHILS # 3.3 10^3/uL (1.5-8.5); NEUTROPHILS % 48.1 % (36.0-66.0); PLATELET COUNT, AUTOMATED 218 10^3/uL (150-450); RED BLOOD COUNT 3.86 10^6/uL (4.30-6.10); WHITE BLOOD COUNT 6.8 10^3/uL (4.0-10.0)
[2019-12-02 03:44] LABS: INR 0.99; PROTHROMBIN TIME 12.8 SECONDS (11.8-14.0)
[2019-12-02 03:45] LABS: PARTIAL THROMBOPLASTIN TIME 25.8 SECONDS (25.0-38.4)
[2019-12-02] MEDS ORDERED: ASPIRIN 325 MG TAB PO ONE (03:45)
[2019-12-02] MEDS ORDERED: ISOVUE-370 76% 100ML VIAL As Ordered ONE (05:06)
[2019-12-02 05:07] LABS: ALBUMIN 3.1 GM/DL (3.2-5.2); ALT/SGPT 41 U/L (12-78); BILIRUBIN,DIRECT < 0.1 MG/DL (0.0-0.2); BILIRUBIN,TOTAL 0.3 MG/DL (0.2-1.0); BLOOD UREA NITROGEN 8 MG/DL (7-18); CALCIUM LEVEL 8.4 MG/DL (8.5-10.1); CARBON DIOXIDE LEVEL 26 MEQ/L (21-32); CHLORIDE LEVEL 105 MEQ/L (98-107); CK-MB VALUE MASS 2.3 NG/ML (<3.6); CPK CREATINE PHOSPHOKINASE 321 U/L (39-308); CREATININE FOR GFR 1.18 MG/DL (0.70-1.30); ETHYL ALCOHOL (ETHANOL) 0.006 % (0.000-0.010); GLOMERULAR FILTRATION RATE > 60.0 (>56); GLUCOSE, FASTING 151 MG/DL (70-100); LIPASE 195 U/L (73-393); MB/CK RELATIVE INDEX 0.72 (< OR =4); SODIUM LEVEL 140 MEQ/L (136-145); TOTAL PROTEIN 7.5 GM/DL (6.4-8.2); TROPONIN I < 0.02 NG/ML (< 0.10)
--- NOTE | 2019-12-02 05:35 | REPVR ---
PROCEDURE INFORMATION: Exam: CT Angiography Chest With Contrast Exam date and time: 12/02/2019 4:51 AM Age: 54 years old Clinical indication: Chest pain; Type not specified; Additional info: Dysp/cp TECHNIQUE: Imaging protocol: Computed tomographic angiography of the chest with intravenous contrast. 3D rendering: MIP and/or 3D reconstructed images were created by the technologist. Radiation optimization: All CT scans at this facility use at least one of these dose optimization techniques: automated exposure control; mA and/or kV adjustment per patient size (includes targeted exams where dose is matched to clinical indication); or iterative reconstruction. Contrast material: ISO; Contrast volume: 75 ml; Contrast route: AC; COMPARISON: CR Chest, 1 view 2017-10-21 17:20 FINDINGS: Pulmonary arteries: No filling defects in the pulmonary arteries to suggest pulmonary emboli. Aorta: 3.6 cm ascending aorta. Lungs: Dependent subsegmental pulmonary atelectasis. Tree-in-bud nodular opacities in the right greater than left lungs, predominantly within the right upper and lower lobes, likely infectious or inflammatory. Pleural space: Unremarkable. No pneumothorax. No pleural effusion. Heart: Unremarkable. No cardiomegaly. No pericardial effusion. Lymph nodes: Unremarkable. No enlarged lymph nodes. Bones/joints: Unremarkable. No acute fracture. Soft tissues: Right subscapularis lipoma. Other findings: 4 mm nodules on the minor and major fissures. IMPRESSION: 1. No filling defects in the pulmonary arteries to suggest pulmonary emboli. 2. Tree-in-bud nodular opacities in the right greater than left lungs, predominantly within the right upper and lower lobes, likely infectious or inflammatory. 3. 4 mm nodules on the minor and major fissures. COMMENTS: As per Fleischner Society guidelines for follow-up and management of pulmonary nodules: For patients at low risk (minimal or absent history of smoking and of other known risk factors), recommend follow-up chest CT at 12 months; if unchanged, no further follow-up. For patient at high risk (history of smoking or of other known risk factors), recommend initial follow-up chest CT at 6-12 months, then at 18-24 months if no interval change. Electronically signed by: Tu Mary On 12/02/2019 05:35:29 AM
--- NOTE | 2019-12-02 05:51 | ECGEPIP ---
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
--- NOTE | 2019-12-02 05:52 | ECGEPIP ---
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
[2019-12-02 06:28] LABS: CK-MB VALUE MASS 1.6 NG/ML (<3.6); MB/CK RELATIVE INDEX 0.78 (< OR =4); TROPONIN I 0.02 NG/ML (< 0.10)
[2019-12-02 06:30] VITALS: BP 165/98
--- NOTE | 2019-12-02 13:01 | ED PDOC ---
Post-Departure Follow-Up cta chest faxed to dr loza for fu Lana Duron MD December 02, 2019 13:01
== END 2019-12-02 06:55 | disposition home or self-care (01) ==
LOC: M ED 03:01
DX: R07.89 Other chest pain (principal); R06.02 Shortness of breath; E11.9 Type 2 diabetes mellitus without complications; I10 Essential (primary) hypertension; F10.20 Alcohol dependence, uncomplicated; J44.9 Chronic obstructive pulmonary disease, unspecified; B20 Human immunodeficiency virus [HIV] disease; F31.9 Bipolar disorder, unspecified; Z87.19 Personal history of other diseases of the digestive system; F17.200 Nicotine dependence, unspecified, uncomplicated; Z91.018 Allergy to other foods; Z79.899 Other long term (current) drug therapy; Z79.4 Long term (current) use of insulin
CPT/HCPCS: 71275; 80047; 80048; 80076; 82550; 82553; 83690; 85025; 85610; 85730; 93005; 99285; G0480; Q9967

== ENCOUNTER 2020-01-03 | Inpatient (IN) | payer OTHER ==
[~2020-01-03] VITALS: Ht 175.3 cm; Wt 72.7 kg
[2020-01-03] VITALS (9 sets, daily range): BP systolic 102–171; BP diastolic 60–93
[2020-01-03 01:01] LABS: BASO % 0.4 % (0.0-1.0); EOS % 0.4 % (0.0-3.0); HEMATOCRIT 39.4 % (42.0-52.0); LYMPH # 1.7 10^3/uL (1.5-5.0); LYMPH % 19.7 % (24.0-44.0); MEAN CORPUSCULAR HEMOGLOBIN 31.6 pg (27.0-33.0); MEAN CORPUSCULAR VOLUME 95.9 fl (80.0-96.0); MONO # 0.7 10^3/uL (0.0-0.8); NEUTROPHILS % 71.3 % (36.0-66.0); PLATELET COUNT, AUTOMATED 201 10^3/uL (150-450); RED BLOOD COUNT 4.11 10^6/uL (4.30-6.10); WHITE BLOOD COUNT 8.4 10^3/uL (4.0-10.0)
[2020-01-03 01:44] LABS: ALBUMIN 3.6 GM/DL (3.2-5.2); ALT/SGPT 26 U/L (12-78); BILIRUBIN,DIRECT 0.2 MG/DL (0.0-0.2); BILIRUBIN,TOTAL 0.5 MG/DL (0.2-1.0); ETHYL ALCOHOL (ETHANOL) < 0.003 % (0.000-0.010); LIPASE 2774 U/L (73-393)
[2020-01-03] MEDS ORDERED: ISOVUE-370 76% 100ML VIAL As Ordered ONE (01:58)
[2020-01-03] MEDS ORDERED: NS 1,000 ML IV ONE (02:00)
[2020-01-03] MEDS ORDERED: MORPHINE 2 MG/ML 1ML VIAL (J2270) IV ONE (02:00)
[2020-01-03 02:07] LABS: CK-MB VALUE MASS 2.3 NG/ML (<3.6); CPK CREATINE PHOSPHOKINASE 448 U/L (39-308); MB/CK RELATIVE INDEX 0.51 (< OR =4); TROPONIN I < 0.02 NG/ML (< 0.10)
--- NOTE | 2020-01-03 02:30 | REPVR ---
PROCEDURE INFORMATION: Exam: CT Abdomen And Pelvis With Contrast Exam date and time: 01/03/2020 2:15 AM Age: 54 years old Clinical indication: Abdominal pain; Additional info: Pancreatitis TECHNIQUE: Imaging protocol: Computed tomography of the abdomen and pelvis with intravenous contrast. Radiation optimization: All CT scans at this facility use at least one of these dose optimization techniques: automated exposure control; mA and/or kV adjustment per patient size (includes targeted exams where dose is matched to clinical indication); or iterative reconstruction. Contrast material: ISO 370; Contrast volume: 100 ml; Contrast route: IV; COMPARISON: CT ABD PELVIS W/O CONTRAST 10/13/2018 11:36 AM FINDINGS: Lungs: Minimal bilateral lower lobe dependent atelectasis, left greater than right. Liver: The liver attenuation is 70 Hounsfield units and the spleen is 126 Hounsfield units. Gallbladder and bile ducts: Normal. No calcified stones. No ductal dilation. Pancreas: Scattered coarse pancreatic calcifications. Peripancreatic edema with some atrophy of the pancreatic tail. There is mild enlargement of the pancreatic duct in the neck measuring 5 mm. Spleen: Normal. No splenomegaly. Adrenals: Normal. No mass. Kidneys and ureters: Normal. No hydronephrosis. Stomach and bowel: Unremarkable. No obstruction. No mucosal thickening. Appendix: A normal appendix is seen. Intraperitoneal space: Unremarkable. No free air. No significant fluid collection. Vasculature: There is minimal atherosclerotic calcification of the abdominal aorta. Lymph nodes: Unremarkable. No enlarged lymph nodes. Bladder: Unremarkable as visualized. Reproductive: Unremarkable as visualized. Bones/joints: Unremarkable. No acute fracture. Soft tissues: Unremarkable. IMPRESSION: 1. Acute pancreatitis with underlying changes of chronic pancreatitis which is similar to 10/13/2018. 2. Fatty infiltration of the liver. 3. Otherwise negative CT abdomen/pelvis. Electronically signed by: Terrell Casarez On 01/03/2020 02:29:59 AM
[2020-01-03] MEDS ORDERED: ONDANSETRON 4MG/2ML VIAL IV PRN (03:15)
[2020-01-03] MEDS ORDERED: hydrALAZINE 20MG/ML 1ML VIAL (J0360 PER 20MG) IV PRN (03:15)
[2020-01-03] MEDS ORDERED: LORazepam 2 MG TAB PO PRN (03:15)
[2020-01-03] MEDS ORDERED: ACETAMINOPHEN TAB 650MG DOSE (2X325MG) PO PRN (03:15)
[2020-01-03] MEDS ORDERED: MAALOX 30 ML SUSP *UDC PO PRN (03:15)
--- NOTE | 2020-01-03 03:29 | HPEPDOC ---
General Date of Admission Date of Service: Jan 03, 2020 Chief Complaint The patient is a 54-year-old male admitted with a reason for visit of Abd Pain. Source: Patient Exam Limitations: No limitations Timing/Duration: Other (since early this morning) Severity: Severe Associated Symptoms: Other (, abdominal pain) History of Present Illness This is a 54 years old -Micron[place] male with past medical history of COPD, CVA, hypertension, diabetes mellitus, PTSD, HIV, hyperlipidemia, history of alcohol abuse present. Tender in ED with chief complaints of diffuse abdominal pain is started at about 6 PM yesterday, nonradiating, associated with some nausea but no vomiting, not relieved with the food intake or any position are meds and not exacerbated by any other factors. Associated with the nausea. No other associations. Denies chest pain, shortness of breath, diarrhea or vomitin g. Patient does have a extensive history of alcohol abuse and chronic pancreatitis in the past Home Medications Scheduled Abacavir/Dolutegravir/Lamivudi (Triumeq 600-50-300 mg Tablet) 1 Tab Tab, 1 TAB PO DAILY for , (Reported) Atorvastatin Calcium (Atorvastatin Calcium) 40 Mg Tab, 40 MG PO DAILY for , (Reported) Bupropion HCl (Bupropion Xl) 300 Mg Tab.er.24h, 1 TAB PO DAILY, (Reported) Clonidine Hcl (Clonidine HCl) 0.1 Mg Tab, 0.1 MG PO QHS for , (Reported) Docusate Sodium (Dok) 100 Mg Capsule, 1 TAB PO DAILY, (Reported) Fluticasone/Vilanterol (Breo Ellipta 100-25 Mcg INH) 1 Inh Inh, 1 PUFF INH DAILY for , (Reported) Gabapentin (Gabapentin) 400 Mg Capsule, 1 TAB PO TID, (Reported) Insulin Lispro (Admelog Solostar) 100 Unit/Ml Inj, 1 DOSE SC AC for PER SLIDING SCALE, (Reported) Metformin HCl (Metformin HCl) 500 Mg Tablet, 500 MG PO BID, (Reported) Pantoprazole Sodium (Pantoprazole Sodium) 40 Mg Tab, 40 MG PO DAILY for HEARTBURN, (Reported) Prazosin Hcl (Prazosin HCl) 1 Mg Cap, 3 MG PO QHS for nightmares Quetiapine Fumarate (Quetiapine Fumarate) 300 Mg Tab, 300 MG PO QHS for bipolar d/o Ramipril (Ramipril) 5 Mg Cap, 5 MG PO DAILY for , (Reported) Sucralfate (Sucralfate) 1 Gm Tab, 1 GM PO AC for , (Reported) Tamsulosin HCl (Flomax) 0.4 Mg Cap, 0.4 MG PO DAILY for , (Reported) Scheduled PRN Albuterol Sulfate (Ventolin Hfa) 108 Mcg/Act Aer, 2 PUFF INH Q4H PRN for SHORTNESS OF BREATH, (Reported) Docusate Sodium (Docusate Sodium) 100 Mg Capsule, 100 MG PO DAILY PRN for CONSTIPATION, (Reported) Ondansetron HCl (Zofran) 4 Mg Tab, 4 MG PO DAILY PRN for NAUSEA, (Reported) Allergies Coded Allergies: banana (Verified Allergy, Intermediate, HIVES, 01/08/19) Past Medical History Medical History COPD, CVA, hypertension, diabetes mellitus, PTSD, HIV, hyperlipidemia Surgical History None Family History Family history reviewed. No history of diabetes or cancer in the family Social History * Smoker: current smoker Alcohol: heavy Drugs: denies A-FIB/CHADSVASC A-FIB History Current/History of A-Fib/PAF?: No Review of Systems Constitutional: Denies: Chills, Fever, Malaise, Night Sweats, Weakness, Fatigue, Weight Loss, Lethargy, Other Eyes: Denies: Pain, Vision change, Conjunctivae inflammation, Eyelid inflammation, Redness, Other ENT: Denies: Head Aches, Ear Pain, Dysphagia, Sinus Congestion, Post Nasal Drip, Sore Throat, Epistaxis, Other Symptoms Skin: Denies: Rash, Lesions, Jaundice, Bruising, Itching, Dry, Breakdown, Nail Changes, Other Pulmonary: Denies: Dyspnea, Cough, Pleuritic Chest Pain, Other Symptoms Cardiovascular: Denies: Chest Pain, Palpitations, Orthopnea, Paroxysmal Noc. Dyspnea, Edema, Lt Headedness, Other Symptoms Gastrointestinal: Reports: Nausea, Abdominal Pain Genitourinary: Denies: Dysuria, Frequency, Incontinence, Hematuria, Retention, Other Symptoms Hematologic: Denies: Bruising, Bleeding Excessively, Petecchia, Purpura, Enlarged Lymph Nodes, Other Hematologic Endocrine: Denies: Polydipsia, Polyphagia, Polyuria, Heat Intolerance, Cold Intolerance, Other Endocrine Sx Musculoskeletal: Denies: Neck Pain, Back Pain, Shoulder Pain, Arm Pain, Hand Pain, Leg Pain, Foot Pain, Joint Pain, Muscle Pain, Spasms, Other Symptoms Neurological: Denies: Weakness, Numbness, Incoordination, Change in speech, Confusion, Seizures, Other Symptoms Psych: Denies: Mood Normal, Anxiety, Depression, Memory Issues, Thoughts of Self Harm, Anger, Thoughts of Harming Other, Other Psych Physical Examination General Exam: Positive: Alert, Cooperative Eye Exam: Positive: PERRLA ENT Exam: Positive: Atraumatic, Mucous membr. moist/pink Neck Exam: Positive: Supple Chest Exam: Positive: Clear to auscultation, Normal air movement Heart Exam: Positive: Rate Normal, Normal S1, Normal S2 Abdomen Exam: Positive: Other (, soft. Positive tenderness to epigastric area o n deep palpation but no rebound. Palpation. Bowel sounds are present) Extremity Exam: Positive: Normal pulses Skin Exam: Positive: Nl turgor and temperature Neuro Exam: Positive: Strength at 5/5 X4 ext, Cranial Nerves 3-12 NL Psych Exam: Positive: Mood NL, Oriented x 3 Vital Signs Vital Signs Date Time Temp Pulse Resp B/P (MAP) Pulse Ox O2 Delivery O2 Flow Rate FiO2 01/03/20 02:03 16 01/03/20 00:38 01/03/20 00:00 98.7 79 99 Room Air Laboratory Data Labs 24H Laboratory Tests 2 01/03/20 00:54: Immature Granulocyte % (Auto) 0.2, Neutrophils (%) (Auto) 71.3H, Lymphocytes (%) (Auto) 19.7L, Monocytes (%) (Auto) 8.0H, Eosinophils (%) (Auto) 0.4, Basophils (%) (Auto) 0.4, Neutrophils # (Auto) 6.0, Lymphocytes # (Auto) 1.7, Monocytes # (Auto) 0.7, Eosinophils # (Auto) 0.0, Basophils # (Auto) 0.0, Nucleated Red Blood Cells % (auto) 0.0, Total Bilirubin 0.5, Direct Bilirubin 0.2, Aspartate Amino Transf (AST/SGOT) 29, Alanine Aminotransferase (ALT/SGPT) 26, Alkaline Phosphatase 84, Total Creatine Kinase 448H, Creatine Kinase MB 2.3, Creatine Kinase MB Relative Index 0.51, Troponin I < 0.02, Total Protein 8.0, Albumin 3.6, Albumin/Globulin Ratio 0.8, Lipase 2774H, Ethyl Alcohol Level < 0.003 01/03/20 00:56: POC Glucose (Misc Panel) 131H, POC Sodium (Misc Panel) 136, POC Potassium (Misc Panel) 4.0, POC Chloride (Misc Panel) 103, POC Total CO2 (Misc Panel) 24.0, POC Blood Urea Nitrogen (Misc Panel 17, POC Ionized Calcium (Misc Panel) 4.5, POC Creatinine (Misc Panel) 1.6H, POC Hematocrit (Misc Panel) 41.0 CBC/BMP Laboratory Tests 01/03/20 00:54 Problems (1) Pancreatitis, alcoholic, acute Status: Acute Problem Text: 54 years old -Micron[place] male with past medical history of chronic pancreatitis, history of alcohol abuse, tobacco abuse, COPD, CVA, hypertension, diabetes mellitus, PTSD, HIV and hyperlipidemia presented with abdominal pain and nausea since early pneumonia. According to patient, he drank only 1 beer today. Patient's temperature is 98.7, heart rate 79, respiratory rate of 18, blood pressure 194/100. Pulse ox is 99% on room air , White count 8.4, hemoglobin 13, hematocrit 39.4, platelets 201, CPK 448, lipase 2774, and Tylenol. Alcohol less than 0.0 . His electrolytes are normal except his creatinine is 1.6 Admit patient to Medr floor for further management for his acute on chronic pancreatitis secondary to alcohol abuse IV fluids normal saline 150 mL per hour , Protonix 40 mg IV every 12 hours Morphine sulfate 4 mg IV every 4 hours when necessary Zofran 4 mg IV every 4 hours when necessary Diet nothing by mouth Activity as tolerated DVT prophylaxis with heparin (2) Hypertensive emergency Status: Acute Problem Text: Patient has a history of hypertension. He is on multiple hypertensive meds at home which include prazosin, clonidine, ramipril, but I'm not sure how compliant he is with his meds Will restart his home meds except Ramipril, but also we will continue hydralazine 10 mg IV every 6 hours when necessary for systolic blood pressure more than 150 to control his blood pressure Stencil counseling regarding compliance with meds abstinence from alcohol and tobacco was done at bedside (3) KYLE (acute kidney injury) Status: Acute Problem Text: Most likely secondary to dehydration or could be a component of his antihypertensive meds . His BUN is normal. His creatinine is slightly elevated to 1.6 Will hold the ramipril and follow his creatinine levels Adjust the dosage of medications according to his clinical response (4) Diabetes mellitus Status: Chronic Problem Text: Hold his by mouth antidiabetic meds as he is nothing by mouth Fingerstick blood sugar every 6 hours with coverage His home meds can be restarted once he is has a good oral intake of food (5) Tobacco use disorder Status: Chronic Problem Text: NicoDerm patch 21 mg daily (6) Alcohol use disorder Status: Chronic Problem Text: IV fluid normal saline 150 mL per hour Shiva protocol was benzodiazepine has been started , Folic acid, thiamine and multivitamin supplement. Also has been ordered Monitor for alcohol withdrawal symptoms. Plan / VTE VTE Prophylaxis Ordered?: Yes GERA GARNER MD Jan 03, 2020 03:29
[2020-01-03] MEDS ORDERED: PRAZ1CAP PO (03:42)
[2020-01-03] MEDS ORDERED: QUET1TAB10 PO (03:42)
[2020-01-03] MEDS ORDERED: BASA100I SC (03:46)
[2020-01-03] MEDS ORDERED: RA S8.6T3 PO (03:46)
[2020-01-03] MEDS ORDERED: IBUP1TAB6 PO (03:46)
[2020-01-03] MEDS ORDERED: SILD50TA PO (03:46)
[2020-01-03] MEDS ORDERED: TRAZ-257 PO (03:46)
[2020-01-03] MEDS: MORPHINE 4 MG/ML 1ML VIAL/SYRINGE (J2270) IV PRN ×3 (05:00→15:11)
[2020-01-03] MEDS: NS 1,000 ML IV SCH ×2 (05:51→12:26)
[2020-01-03] MEDS: THIAMINE 100 MG TAB PO SCH ×2 (05:51→20:36)
[2020-01-03] MEDS ORDERED: ALBUTEROL 90 MCG/ACT 8GM HFA INHALER INH PRN (07:15)
[2020-01-03] MEDS ORDERED: DEXTROSE 50% 50 ML SYRINGE IV PRN (07:30)
[2020-01-03] MEDS ORDERED: GLUCOSE 4GM CHEW TABLET PO PRN (07:30)
[2020-01-03] MEDS ORDERED: GLUCAGON INJ 1MG VIAL SC PRN (07:30)
[2020-01-03] MEDS ORDERED: HumaLOG INSULIN (NovoLOG) PER UNIT SC SCH ×2 (07:30→21:00)
[2020-01-03] MEDS ORDERED: metFORMIN (GLUCOPHAGE) 500 MG TAB PO SCH (08:00)
[2020-01-03] MEDS: FLUTICASONE HFA 110 MCG 12 GM INHALER (FLOVENT) INH SCH (08:15)
[2020-01-03] MEDS: HEPARIN SOD (PORCINE) 5000UNITS/ML VIAL (J1644 PER 1000UNITS) SC SCH ×2 (08:30→20:35)
[2020-01-03] MEDS: FOLIC ACID 1 MG TAB PO SCH (08:30)
[2020-01-03] MEDS: PANTOPRAZOLE 40MG VIAL (C9113 PER 1) IV SCH ×2 (08:30→20:37)
[2020-01-03] MEDS: TAMSULOSIN 0.4 MG CAP PO SCH (08:31)
[2020-01-03] MEDS: MULTIVITAMINS/MINERALS THERAP 1 TAB PO SCH (08:31)
[2020-01-03] MEDS: buPROPion **XL** TABLET 150MG (WELLBUTRIN XL) PO SCH (08:31)
[2020-01-03] MEDS: ATORVASTATIN 20 MG TAB PO SCH (08:31)
[2020-01-03] MEDS: SUCRALFATE 1 GM TAB PO SCH ×3 (08:31→17:00)
[2020-01-03] MEDS: GABAPENTIN 400 MG CAP PO SCH ×3 (08:31→20:35)
[2020-01-03] MEDS: HumaLOG INSULIN (NovoLOG) PER UNIT SC SCH ×4 (08:40→23:49)
[2020-01-03 08:51] LABS: BLOOD UREA NITROGEN 13 MG/DL (7-18); CALCIUM LEVEL 8.3 MG/DL (8.5-10.1); CARBON DIOXIDE LEVEL 25 MEQ/L (21-32); CHLORIDE LEVEL 108 MEQ/L (98-107); CREATININE FOR GFR 1.28 MG/DL (0.70-1.30); GLOMERULAR FILTRATION RATE > 60.0 (>56); GLUCOSE, FASTING 80 MG/DL (70-100); POTASSIUM SERUM 4.2 MEQ/L (3.5-5.1); SODIUM LEVEL 139 MEQ/L (136-145)
[2020-01-03] MEDS ORDERED: cloNIDine 0.1 MG TAB PO ONE (09:00)
--- NOTE | 2020-01-03 11:45 | IPNPDOC ---
Subjective Date Seen The patient was seen on 01/03/20. Subjective Chief Complaint/HPI This is a 54 years old male with PMH of COPD, CVA, hypertension, DM, PTSD, HIV, hyperlipidemia, history of alcohol abuse presented to [facility] ED due to diffuse abdominal pain started around 6 PM on 01/03/2020. He reported the pain is nonradiating with some associating nausea but no vomiting. Patient reported that he just restarted drinking alcohol one month ago, currently reported one drink per day, 2-3 times a week. He reported hx of more than 10 pancreatitis in the past. Denies any medication changes. Currently pt reported nausea with epigastric abd pain radiating to the back relieved by leaning forward. Denies any vomiting, fever, or chills. Pt reported that he is HIV not AIDS General: Denies: Chills Constitutional: Denies: Chills, Fever Pulmonary: Denies: Dyspnea Cardiovascular: Denies: Chest Pain, Palpitations Gastrointestinal: Reports: Nausea, Abdominal Pain; Denies: Vomiting Objective Physical Examination General Exam: Positive: Alert, Cooperative, Mild Distress Eye Exam: Positive: Conjunctiva & lids normal; Negative: EOMI, Sclera icteric ENT Exam: Positive: Atraumatic, Mucous membr. moist/pink Neck Exam: Positive: Supple Chest Exam: Positive: Normal air movement, Rales (b/l, mild to mod) Heart Exam: Positive: Rate Normal, Normal S1, Normal S2 Abdomen Exam: Positive: Tenderness (in b/l upper quadrants and epigastric region), Other (Neg Onesimo's sign) Extremity Exam: Negative: Edema, Swelling Skin Exam: Positive: Nl turgor and temperature, Other skin issue (no jaundice noted) Neuro Exam: Positive: Normal Speech, Normal Tone Psych Exam: Positive: Mental status NL, Memory Intact, Oriented x 3 Assessment /Plan Assessment 54 yo male with PMH of pancreatitis and hx of alcohol use, tobacco use, COPD, CVA, HTN, DM, PTSD, HIV, and hyperlipidemia presented to [facility] due to diffuse abd pain and nausea noted to have alcoholic pancreatitis. 1. Pancreatitis, alcoholic, acute, recurrent. Aggressive fluid hydration with LR. Protonix 40 mg IV every 12 hours, Morphine sulfate 4 mg IV every 4 hours PRN , Zofran 4 mg IV every 4 hours PRN. Repeat BMP in the afternoon. NPO for now and may start enteral nutrition if abd pain/nausea resolved. Cont protonix 2. Hypertensive urgency, resolved. PMH of HTN. On home med clonidine, prazosin, and ramipril. Pt reported that he has been taking meds with only missing dose was last night. Resume all home meds. BP now wnl. 3. KYLE, likely 2/2 dehydration with decreased PO intake from nausea, resolved. Creat now wnl. Resume home med ramipril. Cont IVF. 4. Diabetes mellitus. Hold home DM med. Fingerstick blood sugar every 6 hours w ith SS coverage, hypoglycemia protocol 5. Tobacco use disorder. Cont Nicoderm patch 21 mg daily 6. Alcohol use disorder. On IVF. Cont CIWA protocol with PRN ativan. Cont Folic acid, thiamine and multivitamin supplement. No obvious withdrawl noted 7. HIV. Pt reported HIV not AIDS. Resume home HIV meds, may take home med order in. 8. Depression/Anxiety. Cont home med Buproprion and quietiapine. 9. COPD. Cont home med albuterol. Substitute home breo elipta with Salmeterol and fluticasone inhalers. Attending attestation: I evaluated and examined the patient in person; I discussed the care with Resident in detail and agree with the plan above. Plan/VTE VTE Prophylaxis Ordered?: Yes VS, I&O, 24H, Fishbone Vital Signs/I&O Vital Signs Date Time Temp Pulse Resp B/P (MAP) Pulse Ox O2 Delivery O2 Flow Rate FiO2 01/03/20 10:21 97.8 70 18 128/88 (101) 98 Room Air I&O- Last 24 Hours up to 6 AM 01/03/20 06:00 Intake Total 1000 ml Balance 1000 ml Laboratory Data 24H LABS Laboratory Tests 2 01/03/20 00:54: Immature Granulocyte % (Auto) 0.2, Neutrophils (%) (Auto) 71.3H, Lymphocytes (%) (Auto) 19.7L, Monocytes (%) (Auto) 8.0H, Eosinophils (%) (Auto) 0.4, Basophils (%) (Auto) 0.4, Neutrophils # (Auto) 6.0, Lymphocytes # (Auto) 1.7, Monocytes # (Auto) 0.7, Eosinophils # (Auto) 0.0, Basophils # (Auto) 0.0, Nucleated Red Blood Cells % (auto) 0.0, Total Bilirubin 0.5, Direct Bilirubin 0.2, Aspartate A sheyla Transf (AST/SGOT) 29, Alanine Aminotransferase (ALT/SGPT) 26, Alkaline Phosphatase 84, Total Creatine Kinase 448H, Creatine Kinase MB 2.3, Creatine Kinase MB Relative Index 0.51, Troponin I < 0.02, Total Protein 8.0, Albumin 3.6, Albumin/Globulin Ratio 0.8, Lipase 2774H, Ethyl Alcohol Level < 0.003 01/03/20 00:56: POC Glucose (Misc Panel) 131H, POC Sodium (Misc Panel) 136, POC Potassium (Misc Panel) 4.0, POC Chloride (Misc Panel) 103, POC Total CO2 (Misc Panel) 24.0, POC Blood Urea Nitrogen (Misc Panel 17, POC Ionized Calcium (Misc Panel) 4.5, POC Creatinine (Misc Panel) 1.6H, POC Hematocrit (Misc Panel) 41.0 01/03/20 05:03: Urine Color STRAW, Urine Appearance CLEAR, Urine pH 5.0, Urine Specific [place] 1.057, Urine Protein NEGATIVE, Urine Glucose (UA) NEGATIVE, Urine Ketones NEGATIVE, Urine Blood 1+H, Urine Nitrite NEGATIVE, Urine Bilirubin NEGATIVE, Urine Urobilinogen 0.2, Urine Leukocyte Esterase NEGATIVE, Urine WBC (Auto) 1, Urine RBC (Auto) 2, Urine Hyaline Casts (Auto) 0, Urine Bacteria (Auto) NEGATIVE, Urine Squamous Epithelial Cells 0, Urine Sperm (Auto) 01/03/20 08:04: Anion Gap 6L, Glomerular Filtration Rate > 60.0, Calcium Level 8.3L CBC/BMP Laboratory Tests 01/03/20 00:54 01/03/20 08:04 DEIDRE MANCERA DO Jan 03, 2020 11:45 LOGAN LAMBERT MD Jan 07, 2020 19:21
[2020-01-03] MEDS: LR 1,000 ML IV SCH ×4 (13:00→20:37)
[2020-01-03] MEDS: SALMETEROL DISKUS 50MCG INHALER (SEREVENT) INH SCH ×2 (13:33→19:50)
[2020-01-03 14:08] LABS: HEMATOCRIT 36.7 % (42.0-52.0); MEAN CORPUSCULAR HEMOGLOBIN 31.9 pg (27.0-33.0); MEAN CORPUSCULAR HGB CONC 32.7 g/dl (32.0-36.5); MEAN CORPUSCULAR VOLUME 97.6 fl (80.0-96.0); PLATELET COUNT, AUTOMATED 186 10^3/uL (150-450); RED BLOOD COUNT 3.76 10^6/uL (4.30-6.10); WHITE BLOOD COUNT 6.7 10^3/uL (4.0-10.0)
[2020-01-03 14:42] LABS: ALT/SGPT 24 U/L (12-78); BILIRUBIN,TOTAL 0.5 MG/DL (0.2-1.0); BLOOD UREA NITROGEN 12 MG/DL (7-18); CALCIUM LEVEL 8.3 MG/DL (8.5-10.1); CARBON DIOXIDE LEVEL 23 MEQ/L (21-32); CHLORIDE LEVEL 110 MEQ/L (98-107); CREATININE FOR GFR 1.18 MG/DL (0.70-1.30); GLOMERULAR FILTRATION RATE > 60.0 (>56); GLUCOSE, FASTING 113 MG/DL (70-100); MAGNESIUM LEVEL 2.2 MG/DL (1.8-2.4); POTASSIUM SERUM 3.7 MEQ/L (3.5-5.1); SODIUM LEVEL 139 MEQ/L (136-145); TOTAL PROTEIN 6.7 GM/DL (6.4-8.2)
[2020-01-03] MEDS: QUEtiapine FUMARATE 100 MG TAB PO SCH (20:36)
[2020-01-03] MEDS: traZODone 100 MG TAB PO SCH (20:36)
[2020-01-03] MEDS: PRAZOSIN 1 MG CAP PO SCH (20:36)
[2020-01-03] MEDS: cloNIDine 0.1 MG TAB PO SCH (20:37)
--- NOTE | 2020-01-03 21:01 | ECGEPIP ---
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
[2020-01-03 21:13] LABS: BLOOD UREA NITROGEN 10 MG/DL (7-18); CALCIUM LEVEL 8.2 MG/DL (8.5-10.1); CARBON DIOXIDE LEVEL 25 MEQ/L (21-32); CHLORIDE LEVEL 109 MEQ/L (98-107); CREATININE FOR GFR 1.21 MG/DL (0.70-1.30); GLOMERULAR FILTRATION RATE > 60.0 (>56); GLUCOSE, FASTING 144 MG/DL (70-100); POTASSIUM SERUM 4.3 MEQ/L (3.5-5.1); SODIUM LEVEL 139 MEQ/L (136-145)
[2020-01-04] MEDS: LR 1,000 ML IV SCH ×2 (03:08→08:19)
[2020-01-04 06:00] VITALS: BP 145/88
[2020-01-04] MEDS: HumaLOG INSULIN (NovoLOG) PER UNIT SC SCH ×3 (06:00→17:10)
[2020-01-04 06:33] VITALS: BP 140/70
[2020-01-04 07:30] LABS: HEMATOCRIT 31.8 % (42.0-52.0); HEMOGLOBIN 10.8 g/dl (13.5-17.5); MEAN CORPUSCULAR HEMOGLOBIN 32.5 pg (27.0-33.0); MEAN CORPUSCULAR VOLUME 95.8 fl (80.0-96.0); PLATELET COUNT, AUTOMATED 186 10^3/uL (150-450); RED BLOOD COUNT 3.32 10^6/uL (4.30-6.10); WHITE BLOOD COUNT 4.4 10^3/uL (4.0-10.0)
[2020-01-04] MEDS: SUCRALFATE 1 GM TAB PO SCH ×2 (07:30→08:16)
--- NOTE | 2020-01-04 07:43 | IPNPDOC ---
Subjective Date Seen The patient was seen on 01/04/20. Subjective Chief Complaint/HPI Patient is examined at bedside. He reported epigastric abdominal pain has improved along with his nausea. Also has b/l upper quadrant abd pain. Reported abd pain is now 5/10, still radiating to back alleviated with leaning forward. Denied any nausea or BM. Denies any fever or chills. Pt has been tolerating clear liquid diet well since yesterday evening. General: Denies: Chills Constitutional: Denies: Chills, Fever Gastrointestinal: Reports: Nausea, Abdominal Pain; Denies: Vomiting, Diarrhea Objective Physical Examination General Exam: Positive: Alert, Cooperative, No Acute Distress Eye Exam: Positive: Conjunctiva & lids normal; Negative: Sclera icteric ENT Exam: Positive: Atraumatic, Mucous membr. moist/pink Neck Exam: Positive: Supple Chest Exam: Positive: Normal air movement, Rales (b/l, mild to mod); Negative: Rhonchi, Wheezing Heart Exam: Positive: Rate Normal, Regular Rhythm, Normal S1, Normal S2; Negative: Murmurs Abdomen Exam: Positive: Normal bowel sounds, Soft, Tenderness (in b/l upper quadrants and epigastric region) Extremity Exam: Negative: Edema, Swelling Skin Exam: Positive: Nl turgor and temperature, Other skin issue (no jaundice noted) Neuro Exam: Positive: Normal Speech, Normal Tone Psych Exam: Positive: Mental status NL, Mood NL, Memory Intact, Oriented x 3 Assessment /Plan Assessment 54 yo male with PMH of pancreatitis and hx of alcohol use, tobacco use, COPD, CVA, HTN, DM, PTSD, HIV, and hyperlipidemia presented to [facility] due to diffuse abd pain and nausea noted to have alcoholic pancreatitis received IVF and tolerating clear liquid diet on advance diet as tolerated. 1. Pancreatitis, alcoholic, acute, recurrent. Fluid hydration with LR, decreased rate to 175ml/hr as pt had adequate clear liquid oral intake yesterday evening, advance diet as tolerated. Protonix 40 mg IV every 12 hours, Morphine sulfate 4 mg IV every 4 hours PRN, Zofran 4 mg IV every 4 hours PRN. 2. Hypertensive urgency, resolved. PMH of HTN. On home med clonidine, prazosin, and ramipril. Pt reported that he has been taking meds with only missing dose was last night. Resume all home meds. BP now wnl. 3. KYLE, likely 2/2 dehydration with decreased PO intake from nausea, resolved. Creat now wnl. Cont IVF; pt also tolerating PO intake. 4. Diabetes mellitus. Hold home DM med. Fingerstick blood sugar every 6 hours with SS coverage, hypoglycemia protocol. A few hypoglycemic episodes resolved after receiving dextrose 01/03/2020. Will switch pt to fingerstick blood sugar Q12H with SS coverage if he is tolerating Po diet well. 5. Tobacco use disorder. Cont Nicoderm patch 21 mg daily 6. Alcohol use disorder. On IVF. Cont CIWA protocol with PRN ativan. Cont Folic acid, thiamine and multivitamin supplement. No obvious withdrawl noted 7. HIV. Pt reported HIV not AIDS. Resume home HIV meds, may take home med order in. 8. Depression/Anxiety. Cont home med Buproprion and quietiapine. 9. Chronic COPD. PMH of COPD. Cont home med albuterol. Substitute home breo elipta with Salmeterol and fluticasone inhalers. 10. Anemia. Likely 2/2 dilutional effect d/t aggressive fluid hydration on 01/03/2020 for pancreatitis, now on more gentle fluid hydration as pt on PO intake as well. Cont to monitor. 11. Hypomagnesia. Mag runX2 with 1 mag Ox 400mg given. Repeat Mg level later today and tmrw morning. DVT prophylaxis: heparin GI prophylaxis: protonix Plan/VTE VTE Prophylaxis Ordered?: Yes Plan IVF: Continue Diet: Advance Diagnostics: Check Labs, Repeat Labs in AM Anticipated Discharge: Home Disposition improving alcoholic pancreatitis on advancing diet VS, I&O, 24H, Fishbone Vital Signs/I&O Vital Signs Date Time Temp Pulse Resp B/P (MAP) Pulse Ox O2 Delivery O2 Flow Rate FiO2 01/04/20 06:33 89 140/70 01/04/20 06:00 98.1 18 94 Room Air I&O- Last 24 Hours up to 6 AM 01/04/20 06:00 Intake Total 4140 ml Output Total 1750 ml Balance 2390 ml Laboratory Data 24H LABS Laboratory Tests 2 01/03/20 08:04: Anion Gap 6L, Glomerular Filtration Rate > 60.0, Calcium Level 8.3L 01/03/20 12:16: Bedside Glucose (Misc Panel) 44L 01/03/20 13:22: Bedside Glucose (Misc Panel) 143H 01/03/20 13:53: Anion Gap 6L, Glomerular Filtration Rate > 60.0, Calcium Level 8.3L, Nucleated Red Blood Cells % (auto) 0.0, Magnesium Level 2.2, Total Bilirubin 0.5, Aspa rtate Amino Transf (AST/SGOT) 26, Alanine Aminotransferase (ALT/SGPT) 24, Alkaline Phosphatase 68, Total Protein 6.7, Albumin 3.0L, Albumin/Globulin Ratio 0.8 01/03/20 17:41: Bedside Glucose (Misc Panel) 67L 01/03/20 20:35: Anion Gap 5L, Glomerular Filtration Rate > 60.0, Calcium Level 8.2L 01/03/20 23:32: Bedside Glucose (Misc Panel) 101 01/04/20 05:46: Bedside Glucose (Misc Panel) 99 01/04/20 06:41: Nucleated Red Blood Cells % (auto) 0.0 CBC/BMP Laboratory Tests 01/03/20 08:04 01/03/20 13:53 01/03/20 20:35 01/04/20 06:41 DEIDRE MANCERA DO Jan 04, 2020 07:43
[2020-01-04 07:53] LABS: ALBUMIN 2.5 GM/DL (3.2-5.2); ALT/SGPT 16 U/L (12-78); BILIRUBIN,TOTAL 0.4 MG/DL (0.2-1.0); BLOOD UREA NITROGEN 7 MG/DL (7-18); CALCIUM LEVEL 7.9 MG/DL (8.5-10.1); CARBON DIOXIDE LEVEL 25 MEQ/L (21-32); CHLORIDE LEVEL 107 MEQ/L (98-107); CREATININE FOR GFR 1.11 MG/DL (0.70-1.30); GLOMERULAR FILTRATION RATE > 60.0 (>56); GLUCOSE, FASTING 80 MG/DL (70-100); MAGNESIUM LEVEL 1.6 MG/DL (1.8-2.4); POTASSIUM SERUM 3.9 MEQ/L (3.5-5.1); SODIUM LEVEL 137 MEQ/L (136-145); TOTAL PROTEIN 6.1 GM/DL (6.4-8.2)
[2020-01-04] MEDS: SALMETEROL DISKUS 50MCG INHALER (SEREVENT) INH SCH ×2 (08:11→19:36)
[2020-01-04] MEDS: FLUTICASONE HFA 110 MCG 12 GM INHALER (FLOVENT) INH SCH (08:11)
[2020-01-04] MEDS: buPROPion **XL** TABLET 150MG (WELLBUTRIN XL) PO SCH (08:16)
[2020-01-04] MEDS: FOLIC ACID 1 MG TAB PO SCH (08:16)
[2020-01-04] MEDS: TAMSULOSIN 0.4 MG CAP PO SCH (08:16)
[2020-01-04] MEDS: GABAPENTIN 400 MG CAP PO SCH ×3 (08:17→21:26)
[2020-01-04] MEDS: MULTIVITAMINS/MINERALS THERAP 1 TAB PO SCH (08:17)
[2020-01-04] MEDS: PANTOPRAZOLE 40MG VIAL (C9113 PER 1) IV SCH ×2 (08:17→21:24)
[2020-01-04] MEDS: HEPARIN SOD (PORCINE) 5000UNITS/ML VIAL (J1644 PER 1000UNITS) SC SCH ×2 (08:17→21:24)
[2020-01-04] MEDS: THIAMINE 100 MG TAB PO SCH ×2 (08:17→21:26)
[2020-01-04] MEDS: ATORVASTATIN 20 MG TAB PO SCH (08:17)
[2020-01-04] MEDS: ramipriL 5 MG CAP PO SCH (08:19)
[2020-01-04] MEDS ORDERED: MAGNESIUM OXIDE 400 MG TAB (MAG-OX) PO ONE (09:45)
[2020-01-04] MEDS: MAG SULF 1GM/100ML (MAG RUN) 1 GM in IV 1 EA IV SCH ×2 (12:47→14:05)
[2020-01-04] MEDS: SUCRALFATE SUSP 1GM/10ML UD PO SCH ×2 (12:47→17:09)
[2020-01-04 14:00] VITALS: BP 140/82
[2020-01-04] MEDS ORDERED: MAGNESIUM SULFATE 1GM/100ML D5W BAG (10MG/ML) As Ordered ONE (14:03)
[2020-01-04] MEDS ORDERED: HumaLOG INSULIN (NovoLOG) PER UNIT SC SCH ×2 (21:00)
[2020-01-04] MEDS: traZODone 100 MG TAB PO SCH (21:24)
[2020-01-04] MEDS: QUEtiapine FUMARATE 100 MG TAB PO SCH (21:24)
[2020-01-04] MEDS: PRAZOSIN 1 MG CAP PO SCH (21:25)
[2020-01-04] MEDS: cloNIDine 0.1 MG TAB PO SCH (21:26)
[2020-01-04 22:00] VITALS: BP 138/80
[2020-01-05 06:00] VITALS: BP 145/79
[2020-01-05 07:03] LABS: MEAN CORPUSCULAR HEMOGLOBIN 31.7 pg (27.0-33.0); MEAN CORPUSCULAR HGB CONC 33.3 g/dl (32.0-36.5); MEAN CORPUSCULAR VOLUME 95.2 fl (80.0-96.0); PLATELET COUNT, AUTOMATED 175 10^3/uL (150-450); RED BLOOD COUNT 3.15 10^6/uL (4.30-6.10); WHITE BLOOD COUNT 4.7 10^3/uL (4.0-10.0)
[2020-01-05 07:26] LABS: BLOOD UREA NITROGEN 6 MG/DL (7-18); CALCIUM LEVEL 8.2 MG/DL (8.5-10.1); CARBON DIOXIDE LEVEL 29 MEQ/L (21-32); CHLORIDE LEVEL 106 MEQ/L (98-107); CREATININE FOR GFR 1.21 MG/DL (0.70-1.30); GLOMERULAR FILTRATION RATE > 60.0 (>56); GLUCOSE, FASTING 186 MG/DL (70-100); MAGNESIUM LEVEL 1.8 MG/DL (1.8-2.4); POTASSIUM SERUM 3.8 MEQ/L (3.5-5.1); SODIUM LEVEL 138 MEQ/L (136-145)
[2020-01-05] MEDS ORDERED: HumaLOG INSULIN (NovoLOG) PER UNIT SC SCH (07:30)
[2020-01-05] MEDS: FLUTICASONE HFA 110 MCG 12 GM INHALER (FLOVENT) INH SCH (07:31)
[2020-01-05] MEDS: SALMETEROL DISKUS 50MCG INHALER (SEREVENT) INH SCH (07:31)
[2020-01-05] MEDS: SUCRALFATE SUSP 1GM/10ML UD PO SCH (08:46)
[2020-01-05] MEDS: MULTIVITAMINS/MINERALS THERAP 1 TAB PO SCH (08:46)
[2020-01-05] MEDS: FOLIC ACID 1 MG TAB PO SCH (08:46)
[2020-01-05] MEDS: ATORVASTATIN 20 MG TAB PO SCH (08:46)
[2020-01-05] MEDS: buPROPion **XL** TABLET 150MG (WELLBUTRIN XL) PO SCH (08:46)
[2020-01-05] MEDS: THIAMINE 100 MG TAB PO SCH (08:46)
[2020-01-05] MEDS: GABAPENTIN 400 MG CAP PO SCH (08:46)
[2020-01-05] MEDS: TAMSULOSIN 0.4 MG CAP PO SCH (08:46)
[2020-01-05] MEDS: HEPARIN SOD (PORCINE) 5000UNITS/ML VIAL (J1644 PER 1000UNITS) SC SCH (08:46)
[2020-01-05 08:52] VITALS: BP 142/78
[2020-01-05] MEDS: ramipriL 5 MG CAP PO SCH (08:52)
[2020-01-05] MEDS ORDERED: PANTOPRAZOLE 40MG TAB (PROTONIX) PO SCH (09:00)
[2020-01-05] MEDS ORDERED: THIA100TA PO (09:24)
[2020-01-05] MEDS ORDERED: FOLI1TAB11 PO (09:25)
[2020-01-05] MEDS ORDERED: VITMTA PO (09:25)
[2020-01-05] MEDS ORDERED: GLUC1TES2 XX (11:31)
--- NOTE | 2020-01-05 17:03 | DS.PDOC ---
Discharge Summary General Date of Admission Jan 03, 2020 at 03:03 Date of Discharge 01/05/2020 Discharge Summary PROCEDURES PERFORMED DURING STAY: [None]. ADMITTING DIAGNOSES: 1. Pancreatitis, alcoholic, acute 2. Hypertensive emergency 3. KYLE 4. Diabetes mellitus 5. Tobacco use disorder 6. Alcohol use disorder DISCHARGE DIAGNOSES: 1. Pancreatitis, alcoholic, acute on chronic, improved 2. Hypertensive urgency, resolved 3. KYLE, likely 2/2 dehydration with decreased PO intake from nausea, resolved 4. Diabetes mellitus 5. Tobacco use disorder 6. Alcohol use disorder 7. HIV 8. Depression/Anxiety 9. COPD COMPLICATIONS/CHIEF COMPLAINT: Alcoholic Pancreatitis,Acute. HISTORY OF PRESENT ILLNESS: This is a 54 years old male with PMH of COPD, CVA, hypertension, DM, PTSD, HIV, hyperlipidemia, history of alcohol abuse presented to [facility] ED due to diffuse abdominal pain started around 6 PM on 01/03/2020. He reported the pain is nonradiating with some associating nausea but no vomiting. Patient reported that he just restarted drinking alcohol one month ago, currently reported one drink per day, 2-3 times a week. He reported hx of more than 10 pancreatitis in the past. Denies any recent medication changes prior to admission but reported missing the medications the night prior to admission. HOSPITAL COURSE: Patient was diagnosed with acute alcoholic pancreatitis with elevated lipase and CT abd/pelvis findings. He was started with aggressive fluid hydration with pain and nausea control. He was noted to have periods of hypoglycemia which resolved with dextrose; he was on glucose check Q6H as he was NPO d/t nausea and abd pain. He was also found to have elevated blood pressure peaked at 194/100. Pt's home BP med was resumed, and his blood pressure gradually went down to wnl. He was also noted to have KYLE which resolved after fluid hydration. Pt's abdominal pain and nausea gradually improved, and his diet was advanced. On 01/05/2020, pt id determined ready to be d/c home. He denies any abd pain, nausea, vomiting. Alcohol and tobacco cessation was counseled, and pt verbalized understanding. DISCHARGE MEDICATIONS: Please see below. ALLERGIES: Please see below. PHYSICAL EXAMINATION ON DISCHARGE: VITAL SIGNS: Please see below. General Exam:Alert, Cooperative, No Acute Distress Eye Exam: Conjunctiva & lids normal. No sclera icterus ENT Exam: Atraumatic, Mucous membr. moist/pink Neck Exam: Supple Chest Exam: Normal air movement, Rales (b/l, mild to mod). No Rhonchi, Wheezing Heart Exam: Rate Normal, Regular Rhythm, Normal S1, Normal S2. No murmurs Abdomen Exam: Normal bowel sounds, Soft. No tenderness upon palpation in epigastric region or any quadrants of the abdomen Extremity Exam: No edema, swelling, or tenderness in b/l LE Skin Exam: Normal skin turgor and temperature, no jaundice noted Neuro Exam: Normal Speech, Normal Tone Psych Exam: Mental status wnl, mood wnl, memory intact, A&Ox 3 LABORATORY DATA: Please see below. IMAGING: CT abd/pelvis with IV contrast showed acute pancreatitis with underlying changes of chronic pancreatitis which is similar to 10/13/2018. Fatty infiltration of the liver. PROGNOSIS: [Fair] ACTIVITY: [As tolerated]. DIET: [As tolerated] DISPOSITION: 01 Home, Self-Care. DISCHARGE PLAN AND INSTRUCTIONS: 1. Follow up with PCP in 7 days 2. Quit alcohol and tobacco use ITEMS TO FOLLOWUP ON ON OUTPATIENT: 1. Chronic alcoholic pancreatitis 2. Alcohol use 3. Tobacco use DISCHARGE CONDITION: [Improved]. TIME SPENT ON DISCHARGE: Greater than [35] minutes. Vital Signs/I&Os Vital Signs Date Time Temp Pulse Resp B/P (MAP) Pulse Ox O2 Delivery O2 Flow Rate FiO2 01/05/20 08:52 142/78 01/05/20 06:00 98.0 66 16 98 Room Air I&O- Last 24 Hours up to 6 AM 01/05/20 06:00 Intake Total 2870 ml Output Total 1825 ml Balance 1045 ml Laboratory Data Labs 24H Laboratory Tests 2 01/04/20 19:42: Bedside Glucose (Misc Panel) 69L 01/05/20 06:27: Nucleated Red Blood Cells % (auto) 0.0, Anion Gap 3L, Glomerular Filtration Rate > 60.0, Calcium Level 8.2L, Magnesium Level 1.8 CBC/BMP Laboratory Tests 01/05/20 06:27 FSBS Laboratory Tests Test 01/04/20 19:42 Range/Units Bedside Glucose (Misc Panel) 69 70-105 MG/DL Discharge Medications Scheduled Abacavir/Dolutegravir/Lamivudi (Triumeq 600-50-300 mg Tablet) 1 Tab Tab, 1 TAB PO DAILY for , (Reported) Atorvastatin Calcium (Atorvastatin Calcium) 40 Mg Tab, 40 MG PO DAILY for , (R eported) Blood Sugar Diagnostic (Advanced Glucose Test Strips) 1 Each Strip, 1 STRIP XX ASDIRECTED Bupropion HCl (Bupropion Xl) 300 Mg Tab.er.24h, 300 MG PO DAILY, (Reported) Clonidine Hcl (Clonidine HCl) 0.1 Mg Tab, 0.1 MG PO QHS for , (Reported) Fluticasone/Vilanterol (Breo Ellipta 100-25 Mcg INH) 1 Inh Inh, 1 PUFF INH DAILY for , (Reported) Folic Acid (Folic Acid) 1 Mg Tablet, 1 MG PO DAILY Gabapentin (Gabapentin) 400 Mg Capsule, 400 MG PO TID, (Reported) Insulin Glargine,Hum.rec.anlog (Basaglar Kwikpen U-100) 100 Unit/1 Ml Insuln.pen, 18 UNIT SC DAILY, (Reported) Insulin Lispro (Admelog Solostar) 100 Unit/Ml Inj, 1 DOSE SC AC for PER SLIDING SCALE, (Reported) Metformin HCl (Metformin HCl) 500 Mg Tablet, 500 MG PO BID, (Reported) Multivitamins (Thera M Plus Tablet) 1 Each Tablet, 1 TAB PO DAILY Pantoprazole Sodium (Pantoprazole Sodium) 40 Mg Tab, 40 MG PO BID for HEARTBURN, (Reported) Prazosin Hcl (Prazosin HCl) 1 Mg Capsule, 3 MG PO QHS, (Reported) Quetiapine Fumarate (Quetiapine Fumarate) 300 Mg Tablet, 300 MG PO QPM, (Reported) Ramipril (Ramipril) 5 Mg Cap, 5 MG PO DAILY for , (Reported) Sildenafil Citrate (Viagra) 50 Mg Tablet, 50 MG PO ASDIRECTED, (Reported) Sucralfate (Sucralfate) 1 Gm Tab, 1 GM PO AC for , (Reported) Tamsulosin HCl (Flomax) 0.4 Mg Cap, 0.4 MG PO DAILY for , (Reported) Thiamine Hcl (Vitamin B-1) 100 Mg Tablet, 100 MG PO BID Trazodone HCl (Trazodone HCl) 100 Mg Tablet, 200 MG PO QHS, (Reported) Scheduled PRN Albuterol Sulfate (Ventolin Hfa) 108 Mcg/Act Aer, 2 PUFF INH Q4H PRN for SHORTNESS OF BREATH, (Reported) Docusate Sodium (Docusate Sodium) 100 Mg Capsule, 100 MG PO DAILY PRN for CONSTIPATION, (Reported) Ibuprofen (Ibuprofen) 600 Mg Tablet, 600 MG PO BID PRN for PAIN, (Reported) with food Ondansetron HCl (Zofran) 4 Mg Tab, 4 MG PO DAILY PRN for NAUSEA, (Reported) Sennosides (Senna Lax) 8.6 Mg Tablet, 17.2 MG PO QHS PRN for CONSTIPATION, (Reported) Allergies Coded Allergies: banana (Verified Allergy, Intermediate, HIVES, 01/08/19) GME ATTESTATION GME ATTESTATION My faculty preceptor for this patient encounter was physically present during the encounter and was fully available. All aspects of the patient interview, examination, medical decision making process, and medical care plan development were reviewed and approved by the faculty preceptor. The faculty preceptor is aware and concurs with the plan as stated in the body of this note and will attest to such by his/her cosignature. DEIDRE MANCERA DO Jan 05, 2020 17:03
== END 2020-01-05 12:00 | disposition home or self-care (01) | DRG 282 ==
LOC: M ED → M ED INP 03:03 → ENRESERV 03:45 → M PCU 05:36 → M MSPAV 14:42
PROVIDERS: ADMIT Internal Medicine; ATTEND Internal Medicine Nephrology
DX: K85.20 Alcohol induced acute pancreatitis without necrosis or infection (principal); N17.9 Acute kidney failure, unspecified; E83.42 Hypomagnesemia; I10 Essential (primary) hypertension; E11.9 Type 2 diabetes mellitus without complications; D64.9 Anemia, unspecified; J44.9 Chronic obstructive pulmonary disease, unspecified; F43.10 Post-traumatic stress disorder, unspecified; F41.9 Anxiety disorder, unspecified; E86.0 Dehydration; F32.9 Major depressive disorder, single episode, unspecified; I16.0 Hypertensive urgency; F17.200 Nicotine dependence, unspecified, uncomplicated; F10.20 Alcohol dependence, uncomplicated; E78.5 Hyperlipidemia, unspecified; Z21 Asymptomatic human immunodeficiency virus [HIV] infection status; Z79.4 Long term (current) use of insulin; Z79.899 Other long term (current) drug therapy; Z91.018 Allergy to other foods

== ENCOUNTER → 2020-03-14 | Outpatient (REF) | payer OTHER, MEDICAID ==
[~2020-03-14] MED LIST changes: +FOLI1TAB11 PO; +GLUC1CHW11 PO; +GLUC1TES2 XX; +PANT40TA29 PO; -PANT40TA3 PO; +RA S8.6T3 PO; +SILD50TA PO; +THIA100TA PO; +VITMTA PO
[2020-04-18 13:13] LABS: Abs CD4 Helper See Separate Report; HIV-1 RNA PCR QUANT 2 LC550285 SEE SEPARATE REPORT (NORMAL)
[2020-05-08 03:47] LABS: ALBUMIN 3.8 GM/DL (3.2-5.2); ALT/SGPT 33 U/L (12-78); BILIRUBIN,TOTAL 0.2 MG/DL (0.2-1.0); BLOOD UREA NITROGEN 14 MG/DL (7-18); CALCIUM LEVEL 8.9 MG/DL (8.5-10.1); CARBON DIOXIDE LEVEL 29 MEQ/L (21-32); CHLORIDE LEVEL 109 MEQ/L (98-107); CHOLESTEROL LEVEL 210 MG/DL (<200); CHOLESTEROL RISK RATIO 1.909 (<5); CREATININE FOR GFR 1.34 MG/DL (0.70-1.30); GLOMERULAR FILTRATION RATE > 60.0 (>56); GLUCOSE, FASTING 89 MG/DL (70-100); HDL CHOLESTEROL 110 MG/DL (>40); HEMOGLOBIN A1c 6.1 %; HEPATITIS C VIRUS ABY INDEX 0.2 INDEX (<0.8); LDL CHOLESTEROL 69 MG/DL (<100); NON-HDL-C 100 MG/DL; POTASSIUM SERUM 4.4 MEQ/L (3.5-5.1); SODIUM LEVEL 141 MEQ/L (136-145); TOTAL PROTEIN 7.9 GM/DL (6.4-8.2); TRIGLYCERIDES LEVEL 154 MG/DL (<150)
== END ==
LOC: M SFHCPLAZ 11:02
PROVIDERS: ATTEND Internal Medicine Infectious Disease
DX: B20 Human immunodeficiency virus [HIV] disease (principal); K85.20 Alcohol induced acute pancreatitis without necrosis or infection; F31.9 Bipolar disorder, unspecified; E78.5 Hyperlipidemia, unspecified

== ENCOUNTER 2020-04-10 00:56 | Inpatient (IN) | payer OTHER ==
[~2020-04-10] VITALS: Ht 175.3 cm; Wt 66.0 kg
[~2020-04-10 00:56] MED LIST changes: -GLUC1CHW11 PO
[2020-04-10 02:51] LABS: BASO % 0.5 % (0.0-1.0); EOS # 0.2 10^3/uL (0.0-0.5); EOS % 3.5 % (0.0-3.0); HEMATOCRIT 36.3 % (42.0-52.0); HEMOGLOBIN 12.2 g/dl (13.5-17.5); LYMPH # 1.7 10^3/uL (1.5-5.0); LYMPH % 26.6 % (24.0-44.0); MEAN CORPUSCULAR HEMOGLOBIN 32.4 pg (27.0-33.0); MEAN CORPUSCULAR HGB CONC 33.6 g/dl (32.0-36.5); MEAN CORPUSCULAR VOLUME 96.3 fl (80.0-96.0); MONO # 0.6 10^3/uL (0.0-0.8); MONO % 10.1 % (0.0-5.0); NEUTROPHILS # 3.7 10^3/uL (1.5-8.5); NEUTROPHILS % 59.1 % (36.0-66.0); PLATELET COUNT, AUTOMATED 163 10^3/uL (150-450); RED BLOOD COUNT 3.77 10^6/uL (4.30-6.10); WHITE BLOOD COUNT 6.2 10^3/uL (4.0-10.0)
[2020-04-10] MEDS ORDERED: ONDANSETRON 4MG/2ML VIAL IV ONE (03:00)
[2020-04-10] MEDS ORDERED: MORPHINE 2 MG/ML 1ML VIAL (J2270) IV PRN ×3 (03:00→05:00)
[2020-04-10 03:14] LABS: INR 0.89; PROTHROMBIN TIME 12.3 SECONDS (11.8-14.0)
[2020-04-10 03:15] LABS: PARTIAL THROMBOPLASTIN TIME 20.2 SECONDS (25.0-38.4)
[2020-04-10 03:25] LABS: ALBUMIN 3.4 GM/DL (3.2-5.2); ALT/SGPT 19 U/L (12-78); BILIRUBIN,DIRECT 0.1 MG/DL (0.0-0.2); BILIRUBIN,TOTAL 0.2 MG/DL (0.2-1.0); CK-MB VALUE MASS 2.2 NG/ML (<3.6); CPK CREATINE PHOSPHOKINASE 354 U/L (39-308); LIPASE 6328 U/L (73-393); MB/CK RELATIVE INDEX 0.62 (< OR =4); TOTAL PROTEIN 7.3 GM/DL (6.4-8.2); TROPONIN I < 0.02 NG/ML (< 0.10)
[2020-04-10] MEDS ORDERED: ISOVUE-370 76% 100ML VIAL As Ordered ONE (03:32)
--- NOTE | 2020-04-10 04:07 | REPVR ---
PROCEDURE INFORMATION: Exam: CT Abdomen And Pelvis With Contrast Exam date and time: 04/10/2020 3:43 AM Age: 54 years old Clinical indication: Abdominal pain; Additional info: Pain/ pancreatitis suspected TECHNIQUE: Imaging protocol: Computed tomography of the abdomen and pelvis with intravenous contrast. Radiation optimization: All CT scans at this facility use at least one of these dose optimization techniques: automated exposure control; mA and/or kV adjustment per patient size (includes targeted exams where dose is matched to clinical indication); or iterative reconstruction. Contrast material: ISO 370; Contrast volume: 100 ml; Contrast route: INTRAVENOUS (IV); COMPARISON: CT ABD/PEL W/IV CONTRAST ONLY 2020-01-03 02:05 FINDINGS: Liver: Periportal edema. Gallbladder and bile ducts: Normal. No calcified stones. No ductal dilation. Pancreas: Acute on chronic pancreatitis. Diffuse extensive scattered pancreatic calcifications. Pancreatic duct is dilated measuring 7 mm. Peripancreatic stranding and fluid. No definite pancreatic necrosis. Recommend follow-up to evaluate etiology for the duct dilatation, causes could include stricture, or potentially neoplasm. Spleen: Normal. No splenomegaly. Adrenals: Normal. No mass. Kidneys and ureters: Normal. No hydronephrosis. Stomach and bowel: Unremarkable. No obstruction. No mucosal thickening. Appendix: No evidence of appendicitis. Portal veins are patent. Intraperitoneal space: Small amount of free fluid. Vasculature: Mild to moderate aortic and iliac artery atherosclerotic calcification. Lymph nodes: Unremarkable. No enlarged lymph nodes. Bladder: Unremarkable as visualized. Reproductive: Moderate prostate enlargement, measures 4.4 cm, correlate with PSA. Bones/joints: Mild lumbar spondylosis. Soft tissues: Unremarkable. IMPRESSION: 1. Acute on chronic pancreatitis. Diffuse extensive scattered pancreatic calcifications. Pancreatic duct is dilated measuring 7 mm. Peripancreatic stranding and fluid. No definite pancreatic necrosis. Recommend follow-up to evaluate etiology for the duct dilatation, causes could include stricture, or potentially neoplasm. 2. Small amount of free fluid. 3. Moderate prostate enlargement, measures 4.4 cm, correlate with PSA. Electronically signed by: Tu Mary On 04/10/2020 04:07:14 AM
[2020-04-10] MEDS ORDERED: FOLI1TAB11 PO (04:43)
[2020-04-10] MEDS ORDERED: NS 1,000 ML IV SCH (04:50)
[2020-04-10] MEDS ORDERED: hydrALAZINE 20MG/ML 1ML VIAL (J0360 PER 20MG) IV STA (05:06)
[2020-04-10] MEDS ORDERED: GLUCAGON INJ 1MG VIAL SC PRN (05:15)
[2020-04-10] MEDS ORDERED: GLUCOSE 4GM CHEW TABLET PO PRN (05:15)
[2020-04-10] MEDS ORDERED: DEXTROSE 50% 50 ML SYRINGE IV PRN (05:15)
[2020-04-10] MEDS ORDERED: hydrALAZINE 20MG/ML 1ML VIAL (J0360 PER 20MG) IV PRN (05:15)
[2020-04-10 06:00] VITALS: BP 163/85
[2020-04-10] MEDS: HumaLOG INSULIN (NovoLOG) PER UNIT SC SCH ×3 (06:00→18:00)
[2020-04-10] MEDS ORDERED: **hydrALAZINE** 10 MG TAB PO PRN (06:12)
[2020-04-10] MEDS ORDERED: MORPHINE 4 MG/ML 1ML VIAL/SYRINGE (J2270) IV ONE (06:45)
[2020-04-10 06:46] LABS: HEMOGLOBIN 11.8 g/dl (13.5-17.5); MEAN CORPUSCULAR HEMOGLOBIN 32.5 pg (27.0-33.0); MEAN CORPUSCULAR HGB CONC 33.7 g/dl (32.0-36.5); MEAN CORPUSCULAR VOLUME 96.4 fl (80.0-96.0); PLATELET COUNT, AUTOMATED 177 10^3/uL (150-450); RED BLOOD COUNT 3.63 10^6/uL (4.30-6.10); WHITE BLOOD COUNT 6.5 10^3/uL (4.0-10.0)
[2020-04-10 07:05] LABS: ALBUMIN 3.2 GM/DL (3.2-5.2); ALT/SGPT 17 U/L (12-78); BILIRUBIN,TOTAL 0.3 MG/DL (0.2-1.0); BLOOD UREA NITROGEN 6 MG/DL (7-18); CALCIUM LEVEL 8.5 MG/DL (8.5-10.1); CARBON DIOXIDE LEVEL 25 MEQ/L (21-32); CHLORIDE LEVEL 107 MEQ/L (98-107); CREATININE FOR GFR 1.08 MG/DL (0.70-1.30); GLOMERULAR FILTRATION RATE > 60.0 (>56); GLUCOSE, FASTING 75 MG/DL (70-100); POTASSIUM SERUM 3.8 MEQ/L (3.5-5.1); SODIUM LEVEL 137 MEQ/L (136-145)
--- NOTE | 2020-04-10 07:57 | HPEPDOC ---
[facility] Medical History & Physical Date of Admission Apr 10, 2020 Date of Service: Apr 10, 2020 History and Physical CHIEF COMPLAINT: abdominal pain HISTORY OF PRESENT ILLNESS: Patient is a 54 y/o M with PMH of COPD, CVA, HTN, DM type II, PTSD, depression, HIV, HLD, chronic pancreatitis 2/2 to alcohol use, BPH who presented to ER from home with chief complaint of increased abdominal pain for the past several days. Pain is familiar to patient as that with pancreatitis flare ups. Patient complaints of 10/10 intermittent abdominal pain located in the epigastric/suprapubic pain which at times can radiate to the left chest and to the back. Pain is dull then turns sharp in character when this occurs, worsened with eating, improved with pain medications. Patient had associated nausea with nonbloody vomiting x2, SOB, chest pain as mentioned above (10/10, sharp, nonradiating, not recreatable with palpation). He admits to drinking several alcoholic beverages over the past several days, approx 2 on 04/09/20. Patient st ates the pain was so severe at home that he "passed out" for a second. He immediately woke up and was in severe pain again. He denies diarrhea, sick contacts, new diet or foods. In the ER, pain was severe 10/[address] abd/pelvis showed acute on chronic pancreatitis, CBD dilation concerning for ? stricture, cannot r/o neoplasm. AST/ALT, D and T bili wnl. Patient was admitted for further treatment of acute on chronic pancreatitis likely alcohol induced. PAST MEDICAL HISTORY: 1. HIV adherent to treatment 2. COPD 3. Hypertension 4. Alcohol Abuse 5. Chronic pancreatitis 2/2 Alcohol 6. Bipolar Disorder 7. HX of Suicidal ideation and attempt 8. BPH 9. Depression 10. HLD 11. PTSD PAST SURGICAL HISTORY: 1. Right knee surgery SOCIAL HISTORY: 1/2 PPD smoker for 32 years. Drinks alcohol use daily, last drink 04/09/20. Uses recreational marijuana. Lives with his daughter in the area. Currently unemployed. Uses cane occasionally. FAMILY HISTORY: father- HTN. at 86 y/o mother- breast cancer. alive ALLERGIES: Please see below. HOME MEDICATIONS: Please see below PHYSICAL EXAMINATION: VITAL SIGNS: Please see below GENERAL APPEARANCE: Appears uncomfortable in pain intermittently with pain, in mod distress HEENT: AT/NC, PERRLA, EOM intact, moist oral mucosa CARDIOVASCULAR: S1S2 +, no M/R/G LUNGS: CTAB, no W/R/R ABDOMEN: tender diffusely, 10/10 pain on palpation, BS + in 4 quadrants MUSCULOSKELETAL: ROM not tested, no atrophy EXTREMITIES: No cyanosis, clubbing or edema. Pulses strong and present in all extremities. NEUROLOGICAL: CN 2-12 intact, no focal deficits. LABORATORY DATA: See below. IMAGING: CT abd/pelvis: 1. Acute on chronic pancreatitis. Diffuse extensive scattered pancreatic calcifications. Pancreatic duct is dilated measuring 7 mm. Peripancreatic stranding and fluid. No definite pancreatic necrosis. Recommend follow-up to evaluate etiology for the duct dilatation, causes could include stricture, or potentially neoplasm. 2. Small amount of free fluid. 3. Moderate prostate enlargement, measures 4.4 cm, correlate with PSA. MICROBIOLOGY: Please see below. ASSESSMENT: 54 y/o M with PMH of COPD, CVA, HTN, DM type II, PTSD, depression, HIV, HLD, chronic pancreatitis 2/2 to alcohol use, BPH admitted for further treatment of acute on chronic pancreatitis likely 2/2 to alcohol use. PLAN: 1. Acute on chronic pancreatitis likely 2/2 to alcohol use. -Lipase >6K, severe abdominal pain, CT above -NPO, IVFs, pain control with IV morphine, zofran 2. Hyperkalemia -No ECG changes -F/u AM labs 3. Hypertension, resistant -S/p hydralazine -Consider restarting PO antihypertensives by AM team if pain improved. Currently NPO 4. Bipolar disorder/depression/PTSD -Currently stable -Resume all home meds when taking PO 5. HIV adherent to treatment -Resume all home meds when taking PO 6. COPD -Stable on RA -Albuterol PRN 7. Alcohol Abuse -No signs of withdrawl. Last drink 04/09/20 -[facility] protocol -banana bag, ativan PRN 8. HLD -resume statin when taking PO 9. GI px. -PPI IV 10. DVT px. -heparin SC DISPOSITION: Admitted under inpatient status. Plan is discharge home when medically improved. Vital Signs Vital Signs Date Time Temp Pulse Resp B/P (MAP) Pulse Ox O2 Delivery O2 Flow Rate FiO2 04/10/20 06:49 16 04/10/20 06:00 98.1 67 163/85 (111) 99 Room Air Laboratory Data Labs 24H Laboratory Tests 2 04/10/20 02:41: Immature Granulocyte % (Auto) 0.2, Neutrophils (%) (Auto) 59.1, Lymphocytes (%) (Auto) 26.6, Monocytes (%) (Auto) 10.1H, Eosinophils (%) (Auto) 3.5H, Basophils (%) (Auto) 0.5, Neutrophils # (Auto) 3.7, Lymphocytes # (Auto) 1.7, Monocytes # (Auto) 0.6, Eosinophils # (Auto) 0.2, Basophils # (Auto) 0.0, Nucleated Red Blood Cells % (auto) 0.0, Prothrombin Time 12.3, Prothromb Time International Ratio 0.89, Activated Partial Thromboplast Time 20.2L, Lactic Acid Level 1.4, Total Bilirubin 0.2, Direct Bilirubin 0.1, Aspartate Amino Transf (AST/SGOT) 22, Alanine Aminotransferase (ALT/SGPT) 19, Alkaline Phosphatase 69, Total Creatine Kinase 354H, Creatine Kinase MB 2.2, Creatine Kinase MB Relative Index 0.62, Troponin I < 0.02, Total Protein 7.3, Albumin 3.4, Albumin/Globulin Ratio 0.9, Lipase 6328H 04/10/20 06:17: Nucleated Red Blood Cells % (auto) 0.0, Total Bilirubin 0.3, Aspartate Amino Transf (AST/SGOT) 15, Alanine Aminotransferase (ALT/SGPT) 17, Alkaline Phosphatase 66, Total Protein 7.0, Albumin 3.2, Albumin/Globulin Ratio 0.8, Anion Gap 5L, Glomerular Filtration Rate > 60.0, Calcium Level 8.5 CBC/BMP Laboratory Tests 04/10/20 02:41 04/10/20 06:17 Home Medications Scheduled Abacavir/Dolutegravir/Lamivudi (Triumeq 600-50-300 mg Tablet) 1 Tab Tab, 1 TAB PO DAILY for Atorvastatin Calcium (Atorvastatin Calcium) 40 Mg Tab, 40 MG PO DAILY for Bupropion HCl (Bupropion Xl) 300 Mg Tab.er.24h, 300 MG PO DAILY Clonidine Hcl (Clonidine HCl) 0.1 Mg Tab, 0.1 MG PO QHS for Fluticasone/Vilanterol (Breo Ellipta 100-25 Mcg INH) 1 Inh Inh, 1 PUFF INH DAILY for Folic Acid (Folic Acid) 1 Mg Tablet, 1 MG PO DAILY Gabapentin (Gabapentin) 400 Mg Capsule, 400 MG PO TID Insulin Lispro (Admelog Solostar) 100 Unit/Ml Inj, 1 DOSE SC AC for PER SLIDING SCALE Metformin HCl (Metformin HCl) 500 Mg Tablet, 500 MG PO BID Pantoprazole Sodium (Pantoprazole Sodium) 40 Mg Tab, 40 MG PO BID for HEARTBURN Prazosin Hcl (Prazosin HCl) 1 Mg Capsule, 3 MG PO QHS Quetiapine Fumarate (Quetiapine Fumarate) 300 Mg Tablet, 300 MG PO QPM Ramipril (Ramipril) 5 Mg Cap, 5 MG PO DAILY for Sildenafil Citrate (Viagra) 50 Mg Tablet, 50 MG PO ASDIRECTED Sucralfate (Sucralfate) 1 Gm Tab, 1 GM PO AC for Tamsulosin HCl (Flomax) 0.4 Mg Cap, 0.4 MG PO DAILY for Scheduled PRN Albuterol Sulfate (Ventolin Hfa) 108 Mcg/Act Aer, 2 PUFF INH Q4H PRN for SHORTNESS OF BREATH Docusate Sodium (Docusate Sodium) 100 Mg Capsule, 100 MG PO DAILY PRN for CONSTIPATION Ibuprofen (Ibuprofen) 600 Mg Tablet, 600 MG PO BID PRN for PAIN with food Ondansetron HCl (Zofran) 4 Mg Tab, 4 MG PO BID PRN for NAUSEA Sennosides (Senna Lax) 8.6 Mg Tablet, 17.2 MG PO QHS PRN for CONSTIPATION Allergies Coded Allergies: banana (Verified Allergy, Intermediate, HIVES, 01/08/19) A-FIB/CHADSVASC A-FIB History Current/History of A-Fib/PAF?: No Current PO Anticoag Therapy: No Age/Risk Factor Scoring CHADSVASC: CHADSVASC Response (Comments) Value Age Risk Factor Age < 65 years old 0 Gender Risk Factor Male 0 Hx of CHF No 0 Hx of HTN Yes 1 Hx of Stroke/TIA/or VTE Yes 2 Hx of Diabetes Yes 1 Hx of Vascular Disease No 0 Total 4 Treatment Treatment ordered: Other Other anticoagulant ordered: heparin Yris Perez MD Apr 10, 2020 07:57
[2020-04-10] MEDS ORDERED: LORazepam 2 MG TAB PO PRN (08:30)
[2020-04-10] MEDS ORDERED: MULTIVITAMIN -ADULT INJECTION 10 ML, THIAMINE INJection 100 MG, FOLIC ACID 1 MG in NS 1... IV ONE (09:00)
[2020-04-10] MEDS ORDERED: ENOXAPARIN 40MG/0.4ML SYRINGE (J1650 PER 10MG) SC SCH (09:00)
[2020-04-10] MEDS: NICOTINE 14 MG/24 HR TRANSDERMAL TD SCH (09:18)
[2020-04-10] MEDS: HEPARIN SOD (PORCINE) 5000UNITS/ML 1ML VIAL/SYRINGE SQ SCH ×2 (09:19→19:57)
[2020-04-10] MEDS: MORPHINE 4 MG/ML 1ML VIAL/SYRINGE (J2270) IV PRN ×2 (09:19→19:58)
[2020-04-10] MEDS: LR 1,000 ML IV SCH ×4 (09:19→21:00)
[2020-04-10 14:00] VITALS: BP 136/75
[2020-04-10] MEDS: THIAMINE 100 MG TAB PO SCH (15:08)
[2020-04-10] MEDS: FOLIC ACID 1 MG TAB PO SCH (15:08)
--- NOTE | 2020-04-10 15:21 | IPNPDOC ---
Text Note Date of Service The patient was seen on 04/10/20. NOTE S Patient is a 54 y/o M with PMH of COPD, CVA (2007 with residual weakness in LLE), HTN, DM type II, PTSD, depression, HIV (dx in 2009, undetected in 12/2019 per patient), HLD, recurrent pancreatitis 2/2 to alcohol use, BPH admitted for recurrent acute pancreatitis likely 2/2 to alcohol use. His symptoms first started with suprapubic pain day afternoon that worsens with oral intake. He has been taking 1200mg ibuprofen BID to manage his pain and noted improvement. However, his pain worsens and moved up to epigastric area yesterday with increased nausea, which were unimproved with medication, prompted ED visit. He described pain as sharp, rated 10/10, with radiation to left chest and left axilla. He reported multiple hx of similar abd pain due to pancreatitis since 2009 but usually radiating to the back instead of axilla. He has been drinking 2-3 times weekly and his last drink was yesterday afternoon with 2-3 cans of beer. He denied history of CAD, recent fever, V/D but noted CP, SOB (due to pain), abd pain, chills and unintentional weight loss of 20lbs in past 2 months due to nausea and decreased of appetite. He rates his current pain 6/10 at rest and 8/10 during waves of pain, and he is currently not nauseous. Review of Systems CONSTITUTIONAL: Denies fever, weakness but noted chills and unintentional weight loss of 20lbs in past 2 months due to decreased of appetite. HEENT: Denies headaches, dizziness. CARDIOVASCULAR: Denies palpitations but noted chest pain and SOB on exertion. RESPIRATORY: Denies wheezing, cough or hemoptysis but noted SOB. GASTROINTESTINAL: Denies nausea, vomiting, diarrhea, constipation, melena, hematochezia GENITAOURINARY: Denies dysuria, hematuria, urinary frequency, incontinence or retention. SKIN: Denies skin changes, rash. MUSCULOSKELETAL: Denies muscle or joint pain. NEUROLOGICAL: Denies numbness, tingling, change in Speech but noted L sided residual weakness since CVA in 2007. O Physical Examination VITAL SIGNS: See below GENERAL APPEARANCE: 54 y/o M appears at stated age in position of comfort with some distress during waves of pain. Alert & oriented x3. HEENT Exam: Normocephalic and atraumatic, PERRLA, conjunctiva & lids normal, EOMI, without sclera icteric, mucous membr. moist/pink, pharynx normal, nares patent. NECK: Supple without lymphadenopathy. LUNGS: Clear to auscultation bilaterally with full breath sounds without rales, wheezing, and crackles. CARDIOVASCULAR: Regular rate and rhythm, normal S1 & S2 without gallops, murmurs, rubs ABDOMEN: Diffuse abd tenderness noted with guarding. Normal bowel sounds. No masses or ecchymosis. EXTREMITIES: 2+ radial and DP pulses bilaterally. No clubbing, cyanosis, edema, tenderness SKIN: Normal turgor and temperature. No rash, lesion MUSCULOSKELETAL: Strength +5/5 in RLE, 4/5 in LLE. Without tenderness bilaterally. NEUROLOGICAL: Moving all four extremities. cranial nerves III-XII normal. EKG 04/10 0244 Sinus rhythm at rate of 60 bpm. Imaging 04/10/2020- CT abd and pelvis with contrast IMPRESSION: 1. Acute on chronic pancreatitis. Diffuse extensive scattered pancreatic calcifications. Pancreatic duct is dilated measuring 7 mm. Peripancreatic stranding and fluid. No definite pancreatic necrosis. Recommend follow-up to evaluate etiology for the duct dilatation, causes could include stricture, or potentially neoplasm. 2. Small amount of free fluid. 3. Moderate prostate enlargement, measures 4.4 cm, correlate with PSA. A Patient is a 54 y/o M with PMH of COPD, CVA (2007 with residual weakness in LLE), HTN, DM type II, PTSD, depression, HIV (dx in 2009, undetected in 12/2019 per patient), HLD, recurrent pancreatitis 2/2 to alcohol use, BPH admitted for acute on chronic pancreatitis likely 2/2 to alcohol use. P # Recurrent episodes of acute pancreatitis - likely 2/2 recent alcohol use, drinks 2-3 cans of beer 2-3 times weekly, last drink yesterday evening - Elevated Lipase 6327 - As evident on CT abd/pelvis with contrast, no definite pancreatic necrosis - Cont Pain control with prn morphine and zofran - Patient has appetite, advance to clear liquid diet # Elevated creatine kinase - Patient with diffuse muscle pain - Total CK 354 - Hold atorvastatin - repeat CK in am # Hx of alcohol abuse - likely 2/2 recent alcohol use, drinks 2-3 cans of beer 2-3 times weekly, last drink yesterday evening - Place on CIWA protocol, ativan prn - Sz precaution - Pt received banana bag this am # HTN - Cont home regimen # Bipolar disorder/depression/PTSD -Cont home regimen #. HIV adherent to treatment - Cont home regimen - Last seen on 04/04/2020 with results pending, patient reported viral load was undetectable during visit on 12/2019. #. COPD - SpO2 99% RA -Cont home regimen #. HLD - hold atorvastatin due to elevated creatine kinase #. GERD - Cont home regimen #. DVT px. -heparin SC VS,Fishbone, I+O VS, Fishbone, I+O Laboratory Tests 04/10/20 02:41 04/10/20 06:17 Vital Signs Date Time Temp Pulse Resp B/P (MAP) Pulse Ox O2 Delivery O2 Flow Rate FiO2 04/10/20 09:30 16 Room Air 04/10/20 06:00 98.1 67 163/85 (111) 99 I&O- Last 24 Hours up to 6 AM 04/10/20 06:00 Intake Total 110 ml Output Total 0 ml Balance 110 ml GME ATTESTATION GME ATTESTATION My faculty preceptor for this patient encounter was physically present during the encounter and was fully available. All aspects of the patient interview, examination, medical decision making process, and medical care plan development were reviewed and approved by the faculty preceptor. The faculty preceptor is aware and concurs with the plan as stated in the body of this note and will attest to such by his/her cosignature. ATTENDING NOTE Pt was seen and examined by me personally with the residents/students. Agree with the above assessment plan. MARY SORTO OMS-3 Apr 10, 2020 15:21 GEORGINA GRAYSON MD Apr 21, 2020 10:26
[2020-04-10 22:00] VITALS: BP 156/79
[2020-04-11] MEDS: HumaLOG INSULIN (NovoLOG) PER UNIT SC SCH ×3 (00:08→12:20)
[2020-04-11] MEDS: MORPHINE 4 MG/ML 1ML VIAL/SYRINGE (J2270) IV PRN (00:09)
[2020-04-11 02:26] VITALS: BP 127/72
[2020-04-11] MEDS ORDERED: DEXTROSE 50% 50 ML SYRINGE IV ONE (03:00)
[2020-04-11 06:00] VITALS: BP 127/75
[2020-04-11 06:02] LABS: HEMATOCRIT 33.9 % (42.0-52.0); HEMOGLOBIN 11.2 g/dl (13.5-17.5); MEAN CORPUSCULAR HEMOGLOBIN 32.3 pg (27.0-33.0); MEAN CORPUSCULAR VOLUME 97.7 fl (80.0-96.0); PLATELET COUNT, AUTOMATED 152 10^3/uL (150-450); RED BLOOD COUNT 3.47 10^6/uL (4.30-6.10); WHITE BLOOD COUNT 4.1 10^3/uL (4.0-10.0)
[2020-04-11 06:30] LABS: ALBUMIN 2.7 GM/DL (3.2-5.2); ALT/SGPT 15 U/L (12-78); BILIRUBIN,TOTAL 0.4 MG/DL (0.2-1.0); BLOOD UREA NITROGEN 10 MG/DL (7-18); CALCIUM LEVEL 7.8 MG/DL (8.5-10.1); CARBON DIOXIDE LEVEL 28 MEQ/L (21-32); CHLORIDE LEVEL 106 MEQ/L (98-107); CREATININE FOR GFR 1.01 MG/DL (0.70-1.30); GLOMERULAR FILTRATION RATE > 60.0 (>56); GLUCOSE, FASTING 124 MG/DL (70-100); POTASSIUM SERUM 3.5 MEQ/L (3.5-5.1); SODIUM LEVEL 138 MEQ/L (136-145); TOTAL PROTEIN 5.9 GM/DL (6.4-8.2)
[2020-04-11] MEDS: FOLIC ACID 1 MG TAB PO SCH (08:15)
[2020-04-11] MEDS: HEPARIN SOD (PORCINE) 5000UNITS/ML 1ML VIAL/SYRINGE SQ SCH ×2 (08:15→21:49)
[2020-04-11] MEDS: THIAMINE 100 MG TAB PO SCH (08:15)
[2020-04-11] MEDS: NICOTINE 14 MG/24 HR TRANSDERMAL TD SCH (08:16)
[2020-04-11] MEDS: ADVAIR HFA 115/21MCG INHALER INH SCH ×2 (09:00→19:44)
[2020-04-11] MEDS ORDERED: ramipriL 5 MG CAP PO SCH (09:00)
[2020-04-11] MEDS ORDERED: FLUBLOK(EGG FREE)(QUAD)INFLUENZA VACC 0.5ML SYRINGE 18YRS & OLDER IM ONE (09:00)
[2020-04-11] MEDS ORDERED: ALBUTEROL 90 MCG/ACT 8GM HFA INHALER INH PRN (10:45)
[2020-04-11 11:06] LABS: CPK CREATINE PHOSPHOKINASE 153 U/L (39-308); LIPASE 638 U/L (73-393)
[2020-04-11] MEDS: GABAPENTIN 400 MG CAP PO SCH ×3 (11:19→21:50)
[2020-04-11] MEDS: LR 1,000 ML IV SCH (11:19)
[2020-04-11] MEDS: TAMSULOSIN 0.4 MG CAP PO SCH (11:20)
--- NOTE | 2020-04-11 11:32 | IPNPDOC ---
Text Note Date of Service The patient was seen on 04/11/20. NOTE S Upon interview, patient's abdominal pain has significantly improved from y esterday. He was having hourly waves of pain yesterday and progressed to only reporting one episodes of pain last night. He denied pain at rest but still have some pain on palpation. His CP and SOB has also resolved. He was able to tolerate clear liquid diet last night without nausea or abd pain. He denied constipation, N/V/D, fever, palpitation, rash and urinary symptoms. He noted that yesterday after dinner, he developed an episode of sweating and chills after he was given post meal glucose. He was found hypoglycemic with BS of 61 and he improved after eating some crackers with peanut butter, as well as 25mL of D50w. Review of Systems CONSTITUTIONAL: Denies fever, noted 1 episode of chills with sweating yesterday night 2/2 hypoglycemic episode. HEENT: Denies headaches, dizziness. CARDIOVASCULAR: Denies palpitations, CP, SOB. RESPIRATORY: Denies wheezing, dyspnea, cough or hemoptysis. GASTROINTESTINAL: Denies nausea, vomiting, diarrhea, constipation, melena, hematochezia GENITAOURINARY: Denies dysuria, hematuria, urinary frequency, incontinence or retention. SKIN: Denies skin changes, rash. MUSCULOSKELETAL: Denies muscle or joint pain. NEUROLOGICAL: Denies numbness, tingling, change in Speech but noted L sided residual weakness since CVA in 2007. O Physical Examination VITAL SIGNS: See below GENERAL APPEARANCE: 54 y/o M appears at stated age in position of comfort with no acute distress. Alert & oriented x3. HEENT Exam: Normocephalic and atraumatic, PERRLA, conjunctiva & lids normal, EOMI, without sclera icteric, mucous membr. moist/pink, pharynx normal, nares p atent. NECK: Supple without lymphadenopathy. LUNGS: Clear to auscultation bilaterally with full breath sounds without rales, wheezing, and crackles. CARDIOVASCULAR: Regular rate and rhythm, normal S1 & S2 without gallops, murmurs, rubs ABDOMEN: Mild abd tenderness on palpation diffusely without guarding. Normal bowel sounds. No masses or ecchymosis. EXTREMITIES: 2+ radial and DP pulses bilaterally. No clubbing, cyanosis, edema, tenderness SKIN: Normal turgor and temperature. No rash, lesion MUSCULOSKELETAL: Strength +5/5 in RLE, 4/5 in LLE. Without tenderness bilaterally. NEUROLOGICAL: Moving all four extremities. cranial nerves III-XII normal. Telemetry data reviewed, no remarkable events Telemetry strip reviewed: 04/11/2020 0517 Sinus rhythm with rate of 64 04/10/2020 1654 Sinus gagan with rate of 58 A Patient is a 54 y/o M with PMH of COPD, CVA (2007 with residual weakness in LL E), HTN, DM type II, PTSD, depression, HIV (dx in 2009, undetected in 12/2019 per patient), HLD, recurrent pancreatitis 2/2 to alcohol use, BPH admitted for recurrent acute pancreatitis likely 2/2 to alcohol use. P # Recurrent episodes of acute pancreatitis 2/2 alcohol use - likely 2/2 recent alcohol use, drinks 2-3 cans of beer 2-3 times weekly, last drink 04/09 evening - As evident on CT abd/pelvis with contrast, no definite pancreatic necrosis - Lipase trending down from 6328 to 638. - Patient has no pain at rest, only tenderness upon palpation - He tolerated clear liquid diet without nausea or pain last night, can advance to soft diet. - Cont Pain control with prn morphine and zofran, reduce morphine to 1mg Q4h prn. # Elevated creatine kinase - Patient with diffuse muscle pain which appears chronic - Atorvastatin was held overnight - Total trend down to 153 today - Cont atorvastatin # Hx of alcohol abuse - likely 2/2 recent alcohol use, drinks 2-3 cans of beer 2-3 times weekly, last drink 04/09 evening - Cont CIWA protocol, ativan prn - Sz precaution - Cont banana bag # DM2 - Cont to hold metformin - Patient has had 2 episodes of hypoglycemia (BS 116 dropped to 61 after 2 units, BS 154 dropped to 35 after 2 units) with current SSI regimen since last night - Patient reported he has been sensitive to insulin and prone to develop hypoglycemia, so he usually won't give himself insulin unless blood sugar is around 150-160. - Hold SSI insulin tonight to monitor. # HTN - Patient's BP this am 127/75 without am BP meds - Hold home BP medication - Cont to monitor vitals # BPH - Cont tamsulosin and prazosin. # Bipolar disorder/depression/PTSD -Cont home regimen #. HIV adherent to treatment - Hold home regimen - Last seen on 04/04/2020 with results pending, patient reported viral load was undetectable during visit on 12/2019. #. COPD - SpO2 99% RA -Cont home regimen #. HLD - Cont atorvastatin #. GERD - Cont home regimen #. DVT px. -heparin SC VS,Fishbone, I+O VS, Fishbone, I+O Laboratory Tests 04/11/20 05:48 Vital Signs Date Time Temp Pulse Resp B/P (MAP) Pulse Ox O2 Delivery O2 Flow Rate FiO2 04/11/20 06:00 98.1 63 16 127/75 (92) 98 Room Air I&O- Last 24 Hours up to 6 AM 04/11/20 06:00 Intake Total 2460 ml Output Total 325 ml Balance 2135 ml GME ATTESTATION GME ATTESTATION My faculty preceptor for this patient encounter was physically present during the encounter and was fully available. All aspects of the patient interview, examination, medical decision making process, and medical care plan development were reviewed and approved by the faculty preceptor. The faculty preceptor is aware and concurs with the plan as stated in the body of this note and will attest to such by his/her cosignature. ATTENDING NOTE Pt was seen and examined by me personally with the residents/students. Agree with the above assessment plan. MARY SORTO OMS-3 Apr 11, 2020 11:32 GEORGINA GRAYSON MD Apr 21, 2020 10:27
[2020-04-11] MEDS ORDERED: SUCRALFATE 1 GM TAB PO SCH (12:00)
[2020-04-11] MEDS ORDERED: MORPHINE 2 MG/ML 1ML VIAL (J2270) IV PRN (12:15)
[2020-04-11] MEDS: buPROPion **XL** TABLET 150MG (WELLBUTRIN XL) PO SCH (12:20)
[2020-04-11] MEDS: PANTOPRAZOLE 40MG TAB (PROTONIX) PO SCH ×2 (12:20→21:50)
[2020-04-11] MEDS: SUCRALFATE SUSP 1GM/10ML UD PO SCH ×2 (12:42→17:44)
[2020-04-11] MEDS: ATORVASTATIN 20 MG TAB PO SCH (12:42)
[2020-04-11 14:00] VITALS: BP 131/71
[2020-04-11] MEDS ORDERED: HumaLOG INSULIN (NovoLOG) PER UNIT SC SCH (21:00)
[2020-04-11] MEDS ORDERED: cloNIDine 0.1 MG TAB PO SCH (21:00)
[2020-04-11] MEDS ORDERED: FLUTICASONE HFA 110 MCG 12 GM INHALER (FLOVENT) INH SCH (21:00)
[2020-04-11] MEDS ORDERED: PRAZOSIN 1 MG CAP PO SCH (21:00)
[2020-04-11] MEDS ORDERED: QUEtiapine FUMARATE 100 MG TAB PO SCH (21:00)
[2020-04-11] MEDS ORDERED: ACETAMINOPHEN TAB 650MG DOSE (2X325MG) PO PRN (21:45)
[2020-04-11 21:50] VITALS: BP 132/72
[2020-04-11 22:00] VITALS: BP 132/72
[2020-04-12 06:00] VITALS: BP 147/85
[2020-04-12 06:56] LABS: HEMATOCRIT 35.3 % (42.0-52.0); HEMOGLOBIN 11.8 g/dl (13.5-17.5); MEAN CORPUSCULAR HEMOGLOBIN 32.3 pg (27.0-33.0); MEAN CORPUSCULAR HGB CONC 33.4 g/dl (32.0-36.5); MEAN CORPUSCULAR VOLUME 96.7 fl (80.0-96.0); PLATELET COUNT, AUTOMATED 179 10^3/uL (150-450); RED BLOOD COUNT 3.65 10^6/uL (4.30-6.10); WHITE BLOOD COUNT 4.3 10^3/uL (4.0-10.0)
[2020-04-12] MEDS: ADVAIR HFA 115/21MCG INHALER INH SCH (07:15)
[2020-04-12 07:16] LABS: ALBUMIN 2.7 GM/DL (3.2-5.2); ALT/SGPT 16 U/L (12-78); BILIRUBIN,TOTAL 0.1 MG/DL (0.2-1.0); BLOOD UREA NITROGEN 8 MG/DL (7-18); CALCIUM LEVEL 8.3 MG/DL (8.5-10.1); CARBON DIOXIDE LEVEL 29 MEQ/L (21-32); CHLORIDE LEVEL 109 MEQ/L (98-107); CREATININE FOR GFR 1.03 MG/DL (0.70-1.30); GLOMERULAR FILTRATION RATE > 60.0 (>56); GLUCOSE, FASTING 155 MG/DL (70-100); POTASSIUM SERUM 3.6 MEQ/L (3.5-5.1); SODIUM LEVEL 140 MEQ/L (136-145); TOTAL PROTEIN 6.7 GM/DL (6.4-8.2)
[2020-04-12] MEDS: LR 1,000 ML IV SCH (08:39)
[2020-04-12] MEDS: PANTOPRAZOLE 40MG TAB (PROTONIX) PO SCH (08:40)
[2020-04-12] MEDS: TAMSULOSIN 0.4 MG CAP PO SCH (08:40)
[2020-04-12] MEDS: FOLIC ACID 1 MG TAB PO SCH (08:40)
[2020-04-12] MEDS: ATORVASTATIN 20 MG TAB PO SCH (08:40)
[2020-04-12] MEDS: HEPARIN SOD (PORCINE) 5000UNITS/ML 1ML VIAL/SYRINGE SQ SCH (08:40)
[2020-04-12] MEDS: THIAMINE 100 MG TAB PO SCH (08:41)
[2020-04-12] MEDS: NICOTINE 14 MG/24 HR TRANSDERMAL TD SCH (08:41)
[2020-04-12] MEDS: buPROPion **XL** TABLET 150MG (WELLBUTRIN XL) PO SCH (08:41)
[2020-04-12] MEDS: SUCRALFATE SUSP 1GM/10ML UD PO SCH (08:41)
[2020-04-12] MEDS: GABAPENTIN 400 MG CAP PO SCH (08:41)
[2020-04-12] MEDS ORDERED: GLUC1CHW11 PO (11:21)
--- NOTE | 2020-04-12 11:31 | DS.PDOC ---
Discharge Summary General Date of Admission Apr 10, 2020 at 04:50 Date of Discharge 04/12/2020 Primary Care Physician: Ban Moya MD Attending Physician: GEORGINA GRAYSON MD Discharge Summary PROCEDURES PERFORMED DURING STAY: None ADMITTING DIAGNOSES/ DISCHARGE DIAGNOSES: 1. Acute pancreatitis with hx of recurrent pancreatitis 2/2 alcohol use 2. Hx of alcohol abuse 3. DM2 4. HTN 5. BPH 6. Bipolar disorder/depression/PTSD 7. COPD 8. HLD 9. GERD COMPLICATIONS/CHIEF COMPLAINT: Acute Pancreatitis. HISTORY OF PRESENT ILLNESS/ HOSPITAL COURSE: Patient is a 54 y/o M with PMH of COPD, CVA (2007 with residual weakness in LLE), HTN, DM type II, PTSD, de pression, HIV (dx in 2009, undetected in 12/2019 per patient), HLD, recurrent pancreatitis 2/2 to alcohol use, BPH, admitted for acute pancreatitis likely 2/2 to alcohol use. He presented to the ED complaining of abd pain radiating to the left chest with associated nausea and SOB. His Lipase was found to be [address] showed "acute on chronic pancreatitis. Diffuse extensive scattered pancreatic calcifications. Pancreatic duct is dilated measuring 7 mm. Peripancreatic stranding and fluid. No definite pancreatic necrosis". He was placed on complete bowel rest and supportive therapy with morphine and zofran. His abd pain and nausea gradually improved and his diet was advanced as tolerat ed. His lipase trended down to 638. His trop and EKG returned negative, overnight telemetry was unremarkable, and his CP and SOB resolved. He was placed on CIWA protocol for alcohol withdrawal and received folic acid and thiamine over the course of his hospital stay. He developed 2 episodes of hypoglycemia during his hospital stay while on sliding scale insulin protocol with AC Humalog. It was noted that patient is very sensitive to insulin and usually requires no more than 2 units AC when his blood sugar is around 150s. He recovered after receiving d50 and glucose tablet for the two episodes, and his SSI regimen was held. His atorvastatin was held on the first day of admission due to elevated CK of 354. It returned to 153 the next day and atorvastatin was restarted, patient denied acute muscle pain. His HIV medication was held during the hospital stay but the rest of his home medication were continued. At the day of discharge, patient's abd pain, CP, SOB and nausea resolved with normal bladder and bowel function. DISCHARGE MEDICATIONS: Please see below. ALLERGIES: Please see below. PHYSICAL EXAMINATION ON DISCHARGE: VITAL SIGNS: See below GENERAL APPEARANCE: 54 y/o M appears at stated age in position of comfort with no acute distress. Alert & oriented x3. HEENT Exam: Normocephalic and atraumatic, PERRLA, conjunctiva & lids normal, EOMI, without sclera icteric, mucous membr. moist/pink, pharynx normal, nares patent. NECK: Supple without lymphadenopathy. LUNGS: Clear to auscultation bilaterally with full breath sounds without rales, wheezing, and crackles. CARDIOVASCULAR: Regular rate and rhythm, normal S1 & S2 without gallops, murmurs, rubs ABDOMEN: Abdomen soft, nondistended and nontender. Normal bowel sounds. No masses or ecchymosis. EXTREMITIES: 2+ radial and DP pulses bilaterally. No clubbing, cyanosis, edema, tenderness SKIN: Normal turgor and temperature. No rash, lesion MUSCULOSKELETAL: Strength +5/5 in RLE, 4/5 in LLE. Without tenderness bilaterall y. NEUROLOGICAL: Moving all four extremities. cranial nerves II-XII normal. LABORATORY DATA: Please see below. IMAGIN04/10/2020- CT abd and pelvis with contrast IMPRESSION: 1. Acute on chronic pancreatitis. Diffuse extensive scattered pancreatic calcifications. Pancreatic duct is dilated measuring 7 mm. Peripancreatic stranding and fluid. No definite pancreatic necrosis. Recommend follow-up to evaluate etiology for the duct dilatation, causes could include stricture, or potentially neoplasm. 2. Small amount of free fluid. 3. Moderate prostate enlargement, measures 4.4 cm, correlate with PSA. PROGNOSIS: Fair ACTIVITY: As tolerated DIET: Regular DISCHARGE PLAN: Discharge home DISPOSITION: Home DISCHARGE INSTRUCTIONS: 1. Dr. Moya's office will call with an appointment ([phone]), please follow up with PCP in 7 days. 2. Please return to the hospital if symptoms worsens. ITEMS TO FOLLOWUP ON ON OUTPATIENT: None DISCHARGE CONDITION: Stable TIME SPENT ON DISCHARGE: Greater than 20 minutes. Vital Signs/I&Os Vital Signs Date Time Temp Pulse Resp B/P (MAP) Pulse Ox O2 Delivery O2 Flow Rate FiO2 04/12/20 06:00 98.0 67 18 147/85 (105) 100 Room Air I&O- Last 24 Hours up to 6 AM 04/12/20 06:00 Intake Total 1920 ml Output Total 1100 ml Balance 820 ml Laboratory Data Labs 24H Laboratory Tests 2 04/11/20 11:48: Bedside Glucose (Misc Panel) 154H 04/11/20 13:42: Bedside Glucose (Misc Panel) 35*L 04/11/20 13:55: Bedside Glucose (Misc Panel) 52L 04/11/20 14:18: Bedside Glucose (Misc Panel) 64L 04/11/20 17:47: Bedside Glucose (Misc Panel) 152H 04/11/20 20:37: Bedside Glucose (Misc Panel) 183H 04/12/20 06:14: Nucleated Red Blood Cells % (auto) 0.0 04/12/20 06:15: Anion Gap 2L, Glomerular Filtration Rate > 60.0, Calcium Level 8.3L, Total Bilirubin 0.1#L, Aspartate Amino Transf (AST/SGOT) 13, Alanine Aminotransferase (ALT/SGPT) 16, Alkaline Phosphatase 71, Total Protein 6.7, Albumin 2.7L, Albumin/Globulin Ratio 0.7 CBC/BMP Laboratory Tests 04/12/20 06:14 04/12/20 06:15 FSBS Laboratory Tests Test 04/11/20 11:48 04/11/20 13:42 04/11/20 13:55 04/11/20 14:18 Range/Units Bedside Glucose (Misc Panel) 154 35 52 64 70-105 MG/DL Test 04/11/20 17:47 04/11/20 20:37 Range/Units Bedside Glucose (Misc Panel) 152 183 70-105 MG/DL Discharge Medications Scheduled Abacavir/Dolutegravir/Lamivudi (Triumeq 600-50-300 mg Tablet) 1 Tab Tab, 1 TAB PO DAILY for , (Reported) Atorvastatin Calcium (Atorvastatin Calcium) 40 Mg Tab, 40 MG PO DAILY for , (Reported) Bupropion HCl (Bupropion Xl) 300 Mg Tab.er.24h, 300 MG PO DAILY, (Reported) Clonidine Hcl (Clonidine HCl) 0.1 Mg Tab, 0.1 MG PO QHS for , (Reported) Fluticasone/Vilanterol (Breo Ellipta 100-25 Mcg INH) 1 Inh Inh, 1 PUFF INH DAILY for , (Reported) Folic Acid (Folic Acid) 1 Mg Tablet, 1 MG PO DAILY, (Reported) Gabapentin (Gabapentin) 400 Mg Capsule, 400 MG PO TID, (Reported) Insulin Lispro (Admelog Solostar) 100 Unit/Ml Inj, 1 DOSE SC AC for PER SLIDING SCALE, (Reported) Metformin HCl (Metformin HCl) 500 Mg Tablet, 500 MG PO BID, (Reported) Pantoprazole Sodium (Pantoprazole Sodium) 40 Mg Tab, 40 MG PO BID for HEARTBURN, (Reported) Prazosin Hcl (Prazosin HCl) 1 Mg Capsule, 3 MG PO QHS, (Reported) Quetiapine Fumarate (Quetiapine Fumarate) 300 Mg Tablet, 300 MG PO QPM, (Reported) Ramipril (Ramipril) 5 Mg Cap, 5 MG PO DAILY for , (Reported) Sildenafil Citrate (Viagra) 50 Mg Tablet, 50 MG PO ASDIRECTED, (Reported) Sucralfate (Sucralfate) 1 Gm Tab, 1 GM PO AC for , (Reported) Tamsulosin HCl (Flomax) 0.4 Mg Cap, 0.4 MG PO DAILY for , (Reported) Scheduled PRN Albuterol Sulfate (Ventolin Hfa) 108 Mcg/Act Aer, 2 PUFF INH Q4H PRN for SHORTNESS OF BREATH, (Reported) Dextrose (Glucose) 4 Gm Tab.chew, 1 CHW PO Q15MP PRN for HYPOGLYCEMIA FSBS<70 Docusate Sodium (Docusate Sodium) 100 Mg Capsule, 100 MG PO DAILY PRN for CONSTIPATION, (Reported) Ibuprofen (Ibuprofen) 600 Mg Tablet, 600 MG PO BID PRN for PAIN, (Reported) with food Ondansetron HCl (Zofran) 4 Mg Tab, 4 MG PO BID PRN for NAUSEA, (Reported) Sennosides (Senna Lax) 8.6 Mg Tablet, 17.2 MG PO QHS PRN for CONSTIPATION, (Reported) Allergies Coded Allergies: banana (Verified Allergy, Intermediate, HIVES, 01/08/19) GME ATTESTATION GME ATTESTATION My faculty preceptor for this patient encounter was physically present during the encounter and was fully available. All aspects of the patient interview, examination, medical decision making process, and medical care plan development were reviewed and approved by the faculty preceptor. The faculty preceptor is aware and concurs with the plan as stated in the body of this note and will attest to such by his/her cosignature. ATTENDING NOTE Pt was seen and examined by me personally with the residents/students. Agree with the above assessment plan. MARY SORTO OMS-3 Apr 12, 2020 11:31 GEORGINA GRAYSON MD Apr 21, 2020 10:28
--- NOTE | 2020-04-14 11:05 | ECGEPIP ---
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
== END 2020-04-12 11:43 | disposition home or self-care (01) | DRG 282 ==
LOC: M ED 00:56 → M ED INP 04:50 → ENRESERV 05:10 → M MSPAV 06:00
PROVIDERS: ADMIT Internal Medicine; ATTEND Internal Medicine
DX: K85.20 Alcohol induced acute pancreatitis without necrosis or infection (principal); I10 Essential (primary) hypertension; J44.9 Chronic obstructive pulmonary disease, unspecified; E11.9 Type 2 diabetes mellitus without complications; F43.10 Post-traumatic stress disorder, unspecified; E78.5 Hyperlipidemia, unspecified; N40.0 Benign prostatic hyperplasia without lower urinary tract symptoms; F31.9 Bipolar disorder, unspecified; Z91.5 Personal history of self-harm; F17.200 Nicotine dependence, unspecified, uncomplicated; Z79.84 Long term (current) use of oral hypoglycemic drugs; Z79.899 Other long term (current) drug therapy; Z91.018 Allergy to other foods; Z21 Asymptomatic human immunodeficiency virus [HIV] infection status

== ENCOUNTER → 2020-04-19 | Outpatient (CLI) | payer OTHER ==
[~2020-04-19] MED LIST changes: +GLUC1CHW11 PO; +ISOVUE-300 61% 50ML VIAL As Ordered ONE; +LIDOCAINE 1% MDV 20ML VIAL As Ordered ONE; +TRIAMCINOLONE ACETONIDE SUSP 40 MG/ML VIAL (J3301) As Ordered ONE
--- NOTE | 2020-04-25 16:51 | REP ---
LEFT HIP JOINT INJECTION The procedure was performed by ROBERTO Tian, under the direct supervision of Dr. Steve. The risks and benefits of the procedure were explained to the patient, and a formal consent was obtained both verbally and written. Directly prior to the start of the procedure, a formal time-out was completed in the exam room. The left femoral neck joint space was localized using fluoroscopic guidance. The skin was prepped and draped in a sterile fashion. 5 mL of 1% Lidocaine 10 mg/mL was used as a local anesthetic. Using fluoroscopic guidance, a 22-gauge spinal needle was inserted and advanced into the left femoral neck joint space. 1.0 mL of Isovue-300 was injected to verify placement. 6 mL of a solution containing 5 mL of 1% Lidocaine 10 mg/mL and 1 mL of Kenalog 40 mg/mL was injected into the joint space. The needle was removed and a soft dressing was applied to the area. The patient tolerated the procedure well and there were no immediate complications. 0.1 minutes of fluoroscopy time was utilized for this procedure. This procedure was dictated by ROBERTO Tian and Dr. Steve. TYLER
== END ==
LOC: M RADPRO 11:52
PROVIDERS: ATTEND Physician Assistant
DX: M16.12 Unilateral primary osteoarthritis, left hip (principal)
CPT/HCPCS: 20610; 77002; J3301; Q9967

== ENCOUNTER 2020-08-09 18:11 | Emergency (ER) | payer OTHER ==
[~2020-08-09] VITALS: Ht 172.7 cm; Wt 65.6 kg
[~2020-08-09 18:11] MED LIST changes: -BUPR150T3 PO; +BUPR150T4 PO; -ISOVUE-300 61% 50ML VIAL As Ordered ONE; -LIDOCAINE 1% MDV 20ML VIAL As Ordered ONE; -TRIAMCINOLONE ACETONIDE SUSP 40 MG/ML VIAL (J3301) As Ordered ONE
--- OUTSIDE RECORDS SUMMARY | 2020-08-09 18:19 | CCD ---
Author Author [facility] Organization [facility] Address Unknown Phone Unavailable Care Team Providers Care Electron Beam Photo Mask Maker Name Role Phone Ban Moya Unavailable PROBLEMS Type Condition ICD9-CM Code DPP97-OG Code Onset Dates Condition S tatus SNOMED Code Notes Problem Esophageal reflux K21.9 Active 211127816 Problem Human immunodeficiency virus (HIV) disease B20 Active 48272381 Problem Chronic obstructive pulmonary disease, unspecified COPD ty pe J44.9 Active 17703068 Problem Bipolar affective disorder, currently depressed, moderate F31.32 Active 725023955 Problem Right upper quadrant abdominal pain R10.11 Acti ve 547329952 Problem Alcohol-induced chronic pancreatitis K86.0 Act kelley 955355216 Problem Gastroesophageal reflux disease, esophagitis pre sence not specified K21.9 Active 279254109 Problem Essential hypertension I10 Active 90953760 Problem Smoking F17.200 Active 68233583 Problem Left hip pain M25.552 Active 71110368 Problem Other chronic pain G89.29 Active 14874324 Problem Lumbago with sciatica, left side M54.42 Active 471550891 Problem Poor dentition K08.9 Active 701950620 Problem Erectile dysfunction, unspecified erectile dysfunction typ e N52.9 Active 674814753 Problem Superficial thrombophlebitis of left upper extremity I80.8 Active 69286744023904468 Problem Pure hypercholesterolemia E78.0 Active 095154 004 Problem Priapism N48.30 Active 047734374 Problem Slow transit constipation K59.01 Active 879485 07 Problem Asthma J45.909 Active 378512016 Problem Dental caries K02.9 Active 21061198 Problem Pure hypercholesterolemia E78.00 Active 159958 09 Problem Acute pain of right knee M25.561 Active 1161309 3 Problem FDC current use of insulin Z79.4 Active 765057275 Problem Type 2 diabetes mellitus without complications E11 .9 Active 79758664 ALLERGIES Allergen (clinical drug ingredient) Drug/Non Drug Allergy do cumented on EMR Reaction Allergy Type Onset Date Status trazodone TraZODone HCl([facility] Code:[address]-46) paiful erection Drug Allergy Active Bananas Hives, vomitting Non Drug Allergy Ac tive ENCOUNTERS from 1965 to 2020-07-01 Encounter Location Date Provider Diagnosis [address] [address] Jun, Ban Moya IMMUNIZATIONS Vaccine Route Administration Date Status zz*PPD (DO NOT USE) Unknown December 10, 2010 Administered Hepatitis A & B 1mL (Twinrix) IM Intramuscular December 20, 2010 A dministered Hepatitis A & B 1mL (Twinrix) IM Intramuscular Aug 06, 2011 A dministered Hepatitis A & B 1mL (Twinrix) IM Intramuscular December 26, 2011 A dministered Pneumococcal 0.5mL (Prevnar 13) IM Intramuscular May 25, 2012 Administered TDAP Unknown December 12, 2010 Administered Pneumococcal Adult 0.5mL (Pneumovax 23) Unknown October Administered Influenza (6mo & up) Fluzone IM Intramuscular Aug 06, 2011 Ad ministered Pneumococcal Adult 0.5mL (Pneumovax 23) IM Intramuscular Aug 10, 2019 Administered Influenza (18 yrs & older) Flublok IM Intramuscular Aug 10, 2019 Administered Meningococcal IM Intramuscular December 12, 2016 Administered Influenza (6mo & up) Fluzone IM Intramuscular May 29, 2018 Ad ministered Influenza (6mo & up) Fluzone IM Intramuscular May 15, 2017 Ad ministered Influenza (6mo & up) Fluzone IM Intramuscular May 02, 2016 Ad ministered Influenza (6mo & up) Fluzone IM Intramuscular May 09, 2015 Ad ministered Influenza (6mo & up) Fluzone IM Intramuscular Apr 12, 2014 Ad ministered Influenza (6mo & up) Fluzone IM Intramuscular Apr 15, 2013 Ad ministered Influenza (6mo & up) Fluzone IM Intramuscular May 25, 2012 Ad ministered SOCIAL HISTORY Tobacco Use: Social History Observation Description Date Details (start date - stop date) Current Smoker Sex Assigned At : Social History Observation Description Sex Assigned At Unknown Education: Question Answer Notes Level of Education: Not finished High School Domestic Violence: Question Answer Notes Status: Single Sexual Hx: Question Answer Notes Had sex in the last 12 months (vaginal, oral, or anal)? Yes with Women only Alcohol Screening: Question Answer Notes Did you have a drink containing alcohol in the past year? Ye s Points 3 Interpretation Negative How often did you have six or more drinks on one occas ion in the past year? Never (0 points) How many drinks did you have on a typica l day when you were drinking in the past year? 3 or 4 (1 point) How often did you have a drink containing alcohol in t he past year? Two to four times a month (2 points) BMI Care Goal Follow-Up Question Answer Notes Above Normal BMI Follow-Up Dietary management educatio n, guidance, and counseling Tobacco Use: Question Answer Notes Are you a: current smoker Smoking Cessation Information Given 08/10/2019 Patient counseled on the dangers of tobacco use and urged to quit: 08/10/2019 How many cigarettes a day do you smoke? 6-10 Are you interested in quitting? Thinking about quitting Counseled the patient on smoking cessation, education provid ed 08/10/2019 REASON FOR REFERRAL No Information VITAL SIGNS No information MEDICATIONS Medication SIG (Take, Route, Frequency, Duration) Notes Start Da te End Date Status Pen [place] 316" 31G X 5 MM 6 times a day subcutaneously Daily for 30 day(s) Active Trazodone HCl 100 MG TAKE TWO TABLETS BY MOUTH AT BEDTIME for 30 Active FreeStyle Lite Test - TEST BLOOD GLUCOSE 4 TIMES A DAY for 30 Active Metformin HCl 500 MG TAKE 1 TABLET BY MOUTH TWICE DAILY WITH A MEAL for 30 Active Breo Ellipta 100-25 MCG/INH INHALE 1 PUFF BY MOUTH ONCE DAILY for 30 Active Pantoprazole Sodium 40 MG TAKE ONE TABLET BY MOUTH DAILY for 30 Active One Touch Delica 33 gauge 1 needle subcutaneously four times daily for 30 day(s) Active Clonidine HCl 0.1 MG TAKE ONE TABLET BY MOUTH DAILY AT BEDTIME for 30 Active SEROquel 300 MG 1 tablet at bedtime Orally qhs for 30 day(s) Active Colace 100 MG 1 capsule as needed Orally bid for 30 days Active Sure Comfort Lancets 30G - USE FOUR TIMES A DAY for 25 Active Wellbutrin XL 300 MG 1 tablet Orally Once a day for 30 day(s) Active Ramipril 5 MG 1 capsule Orally Once a day for 30 day(s) Active Viagra 50 MG 1 tablet as needed Orally Once a day for 30 day(s) Aug, Active Ondansetron HCl 4 MG TAKE 1 TABLET BY MOUTH TWICE DAILY for 30 Active Proventil HFA 108 (90 Base) MCG/ACT 2 puffs as needed Inhalation every 4 hrs for 30 day(s) Active MyLifeTouch Ultra 2 w/Device 1 glucometer ICD: 5 x daily as needed for 1 dose(s) Jul, Active Triumeq 50mg/600mg/300mg 1 tablet Orally Once a day for 30 day(s) Active Blood Glucose Test Strip 1 1 strip subcutaneously four times daily for 30 day(s) Aug, Active Senokot 8.6 MG 2 tablets at bedtime as needed Orally Once a day for 30 day(s) Active Atorvastatin Calcium 40 MG TAKE ONE TABLET BY MOUTH DAILY for 30 Active Tamsulosin HCl 0.4 MG TAKE ONE CAPSULE BY MOUTH DAILY for 30 Active Ibuprofen 600 MG TAKE ONE TABLET BY MOUTH TWI CE A DAY WITH FOOD NEEDED for 30 Active Admelog SoloStar 100 UNIT/ML as directed Subcutaneous three times daily for 30 days Active Clonidine HCl 0.1 MG 1 tablet Orally qhs for 30 day(s) Active Asmanex 60 Metered Doses 220 MCG/INH 1 puff in the mounika susie Inhalation Once a day for 30 day(s) Apr, Active Lipitor 80 MG 1 tablet Orally Once a day for 30 Days Active Gabapentin 400 MG 1 capsule Orally Three times a day for 30 day(s) Active Zofran 4 MG 1 tab Orally twice daily for 30 Days Active Pantoprazole Sodium 40 MG 1 tablet Orally bid for 30 day(s) Active PROCEDURES No Information RESULTS No Results REASON FOR VISIT non formulary MEDICAL (GENERAL) HISTORY Type Description Date Medical History HIV Medical History hypertension Medical History asthma Medical History depression/ LIZZIE/ bipolar disorder Medical History Alcohol abuse Medical History Alcoholic pancreatitis Medical History dental problems Medical History Non- compliant Medical History recurrent pancreatitis hospi talized 11/14 with lipase of 955 discharge on 11/18/14 Medical History Chronic pancreatitis Surgical History right knee surgery Surgical History EGD acute and chronic inflammation of es ophagus 05/2010 Hospitalization History november/2010 Hospitalization History due to pancreatis, 6 days @ [facility] 11/14 15 Hospitalization History pancreatitis 02/2016 Hospitalization History pancreatitis 06/02/2017 Hospitalization History pancreatitis 09/2018 Hospitalization History paiful ercetion 06/2019 Hospitalization History mental health 2019 Goals Section No Information Health Concerns No Information MEDICAL EQUIPMENT No Information MENTAL STATUS No Information FUNCTIONAL STATUS No Information ASSESSMENTS No Information PLAN OF TREATMENT Medication Medication Name Sig Start Date Stop Date Zofran 4 MG 1 tab Orally twice daily for 30 Days Pantoprazole Sodium 40 MG 1 tablet Orally bid for 30 day(s) Gabapentin 400 MG 1 capsule Orally Three times a day for 30 day( s) Lipitor 80 MG 1 tablet Orally Once a day for 30 Days Ramipril 5 MG 1 capsule Orally Once a day for 30 day(s) Atorvastatin Calcium 40 MG TAKE ONE TABLET BY MOUTH DAILY for 30 Viagra 50 MG 1 tablet as needed Orally Once a day for 30 day( s) Aug, Senokot 8.6 MG 2 tablets at bedtime as needed Orally Once a day for 30 day(s) Trazodone HCl 100 MG TAKE TWO TABLETS BY MOUTH AT BEDTIME for 30 Metformin HCl 500 MG TAKE 1 TABLET BY MOUTH TWICE DAILY WITH A M EAL for 30 Ibuprofen 600 MG TAKE ONE TABLET BY MOUTH TWI CE A DAY WITH FOOD NEEDED for 30 Ondansetron HCl 4 MG TAKE 1 TABLET BY MOUTH TWICE DAILY for 30 SEROquel 300 MG 1 tablet at bedtime Orally qhs for 30 day(s) Clonidine HCl 0.1 MG 1 tablet Orally qhs for 30 day(s) Triumeq 50mg/600mg/300mg 1 tablet Orally Once a day for 30 day(s ) Proventil HFA 108 (90 Base) MCG/ACT 2 puffs as needed Inhalation every 4 hrs for 30 day(s) Tamsulosin HCl 0.4 MG TAKE ONE CAPSULE BY MOUTH DAILY for 30 Wellbutrin XL 300 MG 1 tablet Orally Once a day for 30 day(s) FreeStyle Lite Test - TEST BLOOD GLUCOSE 4 TIMES A DAY for 30 Admelog SoloStar 100 UNIT/ML as directed Subcutaneous three times daily for 30 days Colace 100 MG 1 capsule as needed Orally bid for 30 days Breo Ellipta 100-25 MCG/INH INHALE 1 PUFF BY MOUTH ONCE DAILY fo r 30 Insurance Providers Payer Name Payer Address Payer Phone Insured Name Patient Relati onship to Insured Coverage Start Date [facility]age End Date [facility] [address] [facility] [phone] NEGRO CHEN self
--- OUTSIDE RECORDS SUMMARY | 2020-08-09 18:19 | CCD ---
Author Robbie Cortes Organization Unknown Address [address] [place] [phone] Phone Care Team Providers Care Miter Sawyer Name Role Phone Celeste Ameschary PCP Allergies, Adverse Reactions, Alerts No Data in Section Problem List Concept Problem Description Status Start Date Created Date Resolv ed Date Snomed Code F43.23 Adjustment Disorder, With mixed anxiety and depressed mood Active 06/07/2020 F10.20 Alcohol Use Disorder, Moderate Active 0 F25.0 Schizoaffective Disorder, Bipolar type Active 1 08/07/2019 F17.200 Tobacco Use Disorder, Severe Active 06/07/2020 F14.20 Stimulant Use Disorder. 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 Active 06/07 Medications No Data in Section Social History Social History Element Description Concept Effective Date Smoking Status Unknown if ever smoked [id number] 69141737 Immunizations No Data in Section Vital Signs No Data in Section Procedures Date Concept Id Description Targeted Site Concept Targeted Site Concept Type 06/07/2020 28873-10 [facility] Telemed E/M Lvl 3--Est pt CPT Patient has no history of implantable de vices Encounters Encounter Start Date End Date Encounter Type Description Diagnosis Di agnosis Desc Location Author First Name Author Last Name Npid Taxonomy Cod e Taxonomy Desc Phone Number Location Addr1 Location Addr2 Location City Location [facility] Location Zip [id number] 06/07/2020 06/07/2020 90613-03 MHC Telemed E/M Lvl 3--Est p t F43.23 Adjustment disorder with mixed anxiety and depressed mood [facility] Hui Yadav [id number] Nurse Practitioner [phone] [address] [facility] [address] [place] [address] Plan of Treatment No Data in Section Lab Results No Data in Section Instructions No Data in Section Insurance Providers Insurance Id Policy Effective Date Policy Thru Date Company N ramandeep [id number] 2019 [employer] Henrik BARTON
--- OUTSIDE RECORDS SUMMARY | 2020-08-09 18:19 | CCD ---
Author Author Robbie Lantigua Organization Unknown Address [address] [place] [address] Phone Care Team Providers Care Chlorine Cells Operator Name Role Phone Phan Lantigua PCP Allergies, Adverse Reactions, Alerts No Data in Section Problem List Concept Problem Description Status Start Date Created Date Resolv ed Date Snomed Code F43.23 Adjustment Disorder, With mixed anxiety and depressed mood Active 05/29/2020 F10.20 Alcohol Use Disorder, Moderate Active 0 F25.0 Schizoaffective Disorder, Bipolar type Active 1 07/29/2019 F17.200 Tobacco Use Disorder, Severe Active 05/29/2020 F14.20 Stimulant Use Disorder. 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 Active 05/29 Medications No Data in Section Social History Social History Element Description Concept Effective Date Smoking Status Unknown if ever smoked [id number] 09824371 Immunizations No Data in Section Vital Signs No Data in Section Procedures Date Concept Id Description Targeted Site Concept Targeted Site Concept Type 05/26/2020 22512 Extended Individual Psychotherapy - 45 min CPT Patient has no history of implantable de vices Encounters Encounter Start Date End Date Encounter Type Description Diagnosis Di agnosis Desc Location Author First Name Author Last Name Npid Taxonomy Cod e Taxonomy Desc Phone Number Location Addr1 Location Addr2 Location City Location [place] Location Zip [id number] 05/26/2020 05/26/2020 63058 Extended Individual Psych otherapy - 45 min F43.23 Adjustment disorder with mixed anxiety and depressed m ood [facility] Rhina Chisholm [phone] [id number] S tudent in an Organized Health Care Education/Training Program [phone] [address] [facility] [address] [facility] [address] Plan of Treatment No Data in Section Lab Results No Data in Section Instructions No Data in Section Insurance Providers Insurance Id Policy Effective Date Policy Thru Date Company N ramandeep [id number] 2019 [employer] Henrik B[employer]
--- OUTSIDE RECORDS SUMMARY | 2020-08-09 18:19 | CCD ---
Author Author Robbie Lantigua Organization Unknown Address [address] [address] Phone Care Team Providers Care Grinding Room Inspector Name Role Phone Phan Lantigua PCP Allergies, Adverse Reactions, Alerts No Data in Section Problem List Concept Problem Description Status Start Date Created Date Resolv ed Date Snomed Code F43.23 Adjustment Disorder, With mixed anxiety and depressed mood Active 07/31/2020 F10.20 Alcohol Use Disorder, Moderate Active F25.0 Schizoaffective Disorder, Bipolar type Active 0 07/31/2020 F17.200 Tobacco Use Disorder, Severe Active 07/31/2020 F14.20 Stimulant Use Disorder. 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 Active 07/31 Medications No Data in Section Social History Social History Element Description Concept Effective Date Smoking Status Unknown if ever smoked [id number] 22788168 Immunizations No Data in Section Vital Signs No Data in Section Procedures Date Concept Id Description Targeted Site Concept Targeted Site Concept Type 07/31/2020 09522 Extended Individual Psychotherapy - 45 min CPT Patient has no history of implantable de vices Encounters Encounter Start Date End Date Encounter Type Description Diagnosis Di agnosis Desc Location Author First Name Author Last Name Npid Taxonomy Cod e Taxonomy Desc Phone Number Location Addr1 Location Addr2 Location [facility] Location [facility] Location Zip [id number] 07/31/2020 07/31/2020 35323 Extended Individual Psych otherapy - 45 min F43.23 Adjustment disorder with mixed anxiety and depressed m ood [facility] Rhina Chisholm [phone] [id number] S bryon in an Organized Health Care Education/Training Program [phone] [address] [address] Plan of Treatment No Data in Section Lab Results No Data in Section Instructions No Data in Section Insurance Providers Insurance Id Policy Effective Date Policy Thru Date Company N ramandeep [id number] 2019 [employer] Henrik B[employer]
--- OUTSIDE RECORDS SUMMARY | 2020-08-09 18:19 | CCD ---
Author Author Robbie Lantigua Organization Unknown Address [address] [place] [address] Phone Care Team Providers Care Roller Presser Operator Name Role Phone Phan Lantigua PCP [...] Date Smoking Status Unknown if ever smoked [id number] 18851730 Immunizations No Data in Section Vital Signs No Data in Section Procedures Date Concept Id Description Targeted Site Concept Targeted Site Concept Type 05/26/2020 53463 Extended Individual Psychotherapy - 45 min CPT Patient has no history of implantable de vices Encounters Encounter Start Date End Date Encounter Type Description Diagnosis Di agnosis Desc Location Author First Name Author Last Name Npid Taxonomy Cod e Taxonomy Desc Phone Number Location Addr1 Location Addr2 Location City Location Sta te Location Zip [id number] 05/26/2020 05/26/2020 92264 Extended Individual Psych otherapy - 45 min F43.23 Adjustment disorder with mixed anxiety and depressed m ood [facility] Rhina Chisholm [id number] [id number] S tudent in an Organized Health Care Education/Training Program [phone] [address] [facility] [address] [facility] [address] Plan of Treatment No Data in Section Lab Results No Data in Section Instructions No Data in Section Insurance Providers Insurance Id Policy Effective Date Policy Thru Date Company N ramandeep [id number] 2019 [employer] Henrik B[employer]
--- OUTSIDE RECORDS SUMMARY | 2020-08-09 18:19 | CCD ---
Author Author Robbie Lantigua Organization Unknown Address [address] [place] [address] Phone Care Team Providers Care Station Mechanic Name Role Phone Phan Lantigua PCP Allergies, [...] Date Smoking Status Unknown if ever smoked [id number] 82046611 Immunizations No Data in Section Vital Signs No Data in Section Procedures Date Concept Id Description Targeted Site Concept Targeted Site Concept Type 06/07/2020 67730 Extended Individual Psychotherapy - 45 min CPT Patient has no history of implantable de vices Encounters Encounter Start Date End Date Encounter Type Description Diagnosis Di agnosis Desc Location Author First Name Author Last Name Npid Taxonomy Cod e Taxonomy Desc Phone Number Location Addr1 Location Addr2 Location City Location Sta te Location Zip [id number] 06/07/2020 06/07/2020 68382 Extended Individual Psych otherapy - 45 min F43.23 Adjustment disorder with mixed anxiety and depressed m ood [facility] Rhina Chisholm [phone] [id number] S tudent in an Organized Health Care Education/Training Program [phone] [address] [facility] [address] [facility] [address] Plan of Treatment No Data in Section Lab Results No Data in Section Instructions No Data in Section Insurance Providers Insurance Id Policy Effective Date Policy Thru Date Company N ramandeep [id number] 2019 [employer] Henrik [employer]
--- OUTSIDE RECORDS SUMMARY | 2020-08-09 18:19 | CCD ---
Author Robbie Cortes Organization Unknown Address [address] [place] [address] Phone Care Team Providers Care Analysis Intern Name Role Phone Celeste Ameschary PCP Allergies, Adverse Reactions, Alerts No Data in Section Problem List Concept Problem Description Status Start Date Created Date Resolv ed Date Snomed Code F43.23 Adjustment Disorder, With mixed anxiety and depressed mood Active 05/24/2020 F10.20 Alcohol Use Disorder, Moderate Active 0 F25.0 Schizoaffective Disorder, Bipolar type Active 1 F17.200 Tobacco Use Disorder, Severe Active 05/24/2020 F14.20 Stimulant Use Disorder. 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 Active 05/24 Medications Rx Norm Medication Route Route Concept Start Date Stop Date Dosage Tito quency Duration Formula Strength Dosage Form Dosage Form Code Dosage Description Medication Id Account Npid Author First Name Author Last Name Taxonomy Code Taxonomy Desc Phone Number [id number] trazodone 09/01/2018 05/24/2020 at bedtime 100 mg tab let 08025 [id number] Bradford Landrum [id number] Psychiatric/Mental Health [phone] [id number] prazosin 05/04/2019 05/24/2020 30 1 mg capsule 09367 [id number] Bradford Landrum [id number] Psychiatric/Mental Health [phone] [id number] Social History Social History Element Description Concept Effective Date Smoking Status Unknown if ever smoked [id number] Immunizations No Data in Section Vital Signs Encounter Date Height Ins Weight Lbs Bmi Bp Systolic Bp Diastoli c Oxygen Saturation Respiration Rate Pulse Rate Body Temp Head Circumference Heigh t Lying 05/24/2020 0.00 0.00 0.00 0 0 0.00 0 0 0.00 0.0 0.0 0 Procedures Date Concept Id Description Targeted Site Concept Targeted Site Concept Type 05/24/2020 74483-42 Telemed Diagnostic Eval C PT Patient has no history of implantable de vices Encounters Encounter Start Date End Date Encounter Type Description Diagnosis Di agnosis Desc Location Author First Name Author Last Name Npid Taxonomy Cod e Taxonomy Desc Phone Number Location Addr1 Location Addr2 Location [facility] Location [facility] Location Zip [id number] 05/24/2020 05/24/2020 61320-26 Telemed Diagnostic Eval F43. 23 Adjustment disorder with mixed anxiety and depressed mood [facility] Leif [phone] [id number] Nurse Practitioner [phone] [address] [place] [address] Plan of Treatment No Data in Section Lab Results No Data in Section Instructions No Data in Section Functional Cognitive Status No Data in Section Insurance Providers Insurance Id Policy Effective Date Policy Thru Date Six[employer] N ramandeep [id number] 2019 [employer]rik BARTON
--- OUTSIDE RECORDS SUMMARY | 2020-08-09 18:19 | CCD ---
Author Author Robbie Lantigua Organization Unknown Address [address] [address] Phone Care Team Providers Care Equipment Application Specialist Name Role Phone Phan Lantigua PCP Chief Complaint and Reason for Visit Chief Complaint Allergies, Adverse Reactions, Alerts No Data in Section Problem List Concept Problem Description Status Start Date Created Date Resolv ed Date Snomed Code F43.23 Adjustment Disorder, With mixed anxiety and depressed mood Active 05/15/2020 F10.20 Alcohol Use Disorder, Moderate Active 0 Medications Rx Norm Medication Route Route Concept Start Date Stop Date Dosage Tito quency Duration Formula Strength Dosage Form Dosage Form Code Dosage Description Medication Id Account Npid Author First Name Author Last Name Taxonomy Code Taxonomy Desc Phone Number [id number] trazodone 09/01/2018 at bedtime 100 mg tablet [phone] [phone] [id number] Bradford Landrum [id number] Psychiatric/Mental Health [phone] [id number] prazosin 05/04/2019 30 1 mg capsule [id number] [phone] [id number] Bradford Landrum [id number] Psychiatric/Mental Health [id number] 0160 Social History Social History Element Description Concept Effective Date Smoking Status Unknown if ever smoked [id number] Immunizations No Data in Section Vital Signs No Data in Section Procedures Date Concept Id Description Targeted Site Concept Targeted Site Concept Type 05/10/2020 77878 Extended Individual Psychotherapy - 45 min CPT Patient has no history of implantable de vices Encounters Encounter Start Date End Date Encounter Type Description Diagnosis Di agnosis Desc Location Author First Name Author Last Name Npid Taxonomy Cod e Taxonomy Desc Phone Number Location Addr1 Location Addr2 Location City Location Sta te Location Zip [id number] 05/10/2020 05/10/2020 35221 Extended Individual Psych otherapy - 45 min F43.23 Adjustment disorder with mixed anxiety and depressed m ood [facility] Rhina Chisholm [id number] Florencio slater in an Organized Health Care Education/Training Program [phone] [address] [place] [address] [address] [facility] [address] Plan of Treatment No Data in Section Lab Results No Data in Section Instructions No Data in Section Insurance Providers Insurance Id Policy Effective Date Policy Thru Date Company N ramandeep [id number] 2019 [employer]-- Henrik BARTON
--- OUTSIDE RECORDS SUMMARY | 2020-08-09 18:19 | CCD ---
Author Author Robbie Lantigua Organization Unknown Address [address] [place] [address] Phone Care Team Providers Care Radio Station Manager Name Role Phone Phan Lantigua PCP Allergies, Adverse Reactions, Alerts No Data in Section Problem List Concept Problem Description Status Start Date Created Date Resolv ed Date Snomed Code F43.23 Adjustment Disorder, With mixed anxiety and depressed mood Active 06/26/2020 F10.20 Alcohol Use Disorder, Moderate Active 0 F25.0 Schizoaffective Disorder, Bipolar type Active 1 08/26/2019 F17.200 Tobacco Use Disorder, Severe Active 06/26/2020 F14.20 Stimulant Use Disorder. 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 Active 06/26 Medications No Data in Section Social History Social History Element Description Concept Effective Date Smoking Status Unknown if ever smoked [id number] Immunizations No Data in Section Vital Signs No Data in Section Procedures Date Concept Id Description Targeted Site Concept Targeted Site Concept Type 06/26/2020 37466 Extended Individual Psychotherapy - 45 min CPT Patient has no history of implantable de vices Encounters Encounter Start Date End Date Encounter Type Description Diagnosis Di agnosis Desc Location Author First Name Author Last Name Npid Taxonomy Cod e Taxonomy Desc Phone Number Location Addr1 Location Addr2 Location City Location Sta te Location Zip [id number] 06/26/2020 06/26/2020 75241 Extended Individual Psych otherapy - 45 min F43.23 Adjustment disorder with mixed anxiety and depressed m ood [facility] Rhina Chisholm [id number] S tudent in an Organized Health Care Education/Training Program [phone] [address] [facility] [address] [facility] [address] Plan of Treatment No Data in Section Lab Results No Data in Section Instructions No Data in Section Insurance Providers Insurance Id Policy Effective Date Policy Thru Date Company N ramandeep [id number] 2019 [employer]-- Henrik BARTON
--- OUTSIDE RECORDS SUMMARY | 2020-08-09 18:19 | CCD | Continuity of Care Document ---
Author Author Robbie BABCOCK P.A. Organization Unknown Address [address] [facility], [facility] [address] [place] [address] Phone [phone] Care Team Providers Care Sharebroker Name Role Phone Ban Moya MD AUTM [phone] Problems Active Problems Provider Date Closed anterior dislocation of humerus O nset: 05/18/1999 Essential hypertension Onset: 05/23/2015 Pure hypercholesterolemia Onset: 015 Social History Type Date Description Comments Sex Unknown ETOH Use Rarely consumes alcohol Tobacco Use Start: Unknown Patient is a current smoker, smo kes every day Smoking Status Reviewed: 03/30/20 Patient is a current smoker, smokes every day Allergies, Adverse Reactions, Alerts Description No Known Drug Allergies Medications Active Medications SIG Qnty Indications Ordering Provide r Date Atenolol-Chlorthalidone Tablets Unknown Norvasc 5mg Tablets 1 by mouth every day Unknown Seroquel 300mg Tablets Unknown Atripla [phone] Tablets Unknown Proventil HFA 108(90Base) mcg/Act Aerosol Unknown Wellbutrin SR 100mg Tablets ER 12H R 1 by mouth qd- since 2018 Unknown Trazodone HCL 50mg Tablets Unknown Metformin HCL 500mg Tablets Unknown Immunizations Description No Information Available Vital Signs Date Vital Result Comment 03/30/2020 1:38pm Body Temperature 96.3 F Height 69 inches 5'9" Weight 155.00 lb BMI (Body Mass Index) 22.9 kg/m2 05/23/2015 10:33am Body Temperature 96.6 F Height 69.25 inches 5'9.25" Weight 165.38 lb BMI (Body Mass Index) 24.2 kg/m2 Results Description No Information Available Procedures Date Code Description Status 06/09/2020 13123 X-Ray Shoulder Complete Complete d 03/30/2020 74376 X-Ray Knee Complete W/Obliques & Tunnel And/Or Standing Views Completed 03/30/2020 21639 X-Ray Hip Unilateral With Pelvis 2-3 Views Completed 03/30/2020 94480 X-Ray Spine Lumbosacral Complete Inc Bending Views Min Of 6 Completed Medical Devices Description No Information Available Encounters Type Date Location Provider Dx Diagnosis Office Visit 06/09/2020 1:30p [facility], PTimoA. M25.311 Other instability, right shoulder M25.312 Other instability, left shou lder M51.36 Other intervertebral disc de generation, lumbar region Office Visit 03/30/2020 1:00p [facility], P.A. M16.12 Unilateral primary osteoarthritis, left hip M17.11 Unilateral primary osteoarth ritis, right knee M51.36 Other intervertebral disc de generation, lumbar region Assessments Date Code Description Provider 06/09/2020 M25.311 Other instability, right shoulde r Rah Babcock, P.A. 06/09/2020 M25.312 Other instability, left shoulder Rah Babcock, P.A. 06/09/2020 M51.36 Other intervertebral disc degene ration, lumbar region Rah Babcock, P.A. 03/30/2020 M16.12 Unilateral primary osteoarthriti s, left hip Rah Babcock, P.A. 03/30/2020 M17.11 Unilateral primary osteoarthriti s, right knee Rah Babcock, P.A. 03/30/2020 M51.36 Other intervertebral disc degene ration, lumbar region Rah Babcock, P.A. Plan of Treatment 06/09/2020 - Rah Babcock, P.[place].* M25.311 Other instability, right shoulder* Follow up:* with MR-A results bilat shoulders * M25.312 Other instability, left shoulder * M51.36 Other intervertebral disc degeneration, lumbar region Functional Status Description No Information Available Mental Status Description No Information Available Referrals Refer to Reason for Referral Status Appt Date Rah Babcock, PA no authorization required fo r physical therapy evaluation lumbar nlg Created [facility] [place] [address] [phone] Rah Babcock PA INJ NO AUTH REQUIRED FOR LEFT HIP I [place] TO X-RAY. DG Created [facility] [place] [address] [phone]
--- OUTSIDE RECORDS SUMMARY | 2020-08-09 18:19 | CCD ---
Author Author [facility] Organization [facility] Address Unknown Phone Unavailable Care Team Providers Care Machine Operator Assistant Name Role Phone Ban Moya Unavailable PROBLEMS Type Condition ICD9-CM Code [id number] Code Onset Dates Condition S tatus SNOMED Code Notes Problem Esophageal reflux K21.9 Active 669673312 Problem Human immunodeficiency virus (HIV) disease B20 Active 80049532 Problem Chronic obstructive pulmonary disease, unspecified COPD ty pe J44.9 Active 61888522 Problem Bipolar affective disorder, currently depressed, moderate F31.32 Active 015472861 Problem Right upper quadrant abdominal pain R10.11 Acti ve 014500559 Problem Alcohol-induced chronic pancreatitis K86.0 Act kelley 249964076 Problem Gastroesophageal reflux disease, esophagitis pre sence not specified K21.9 Active 870002665 Problem Essential hypertension I10 Active 82542248 Problem Smoking F17.200 Active 50856015 Problem Left hip pain M25.552 Active 74909700 Problem Other chronic pain G89.29 Active 33042444 Problem Lumbago with sciatica, left side M54.42 Active 207574579 Problem Poor dentition K08.9 Active 436597620 Problem Erectile dysfunction, unspecified erectile dysfunction typ e N52.9 Active 629789555 Problem Superficial thrombophlebitis of left upper extremity I80.8 Active 02986628588144676 Problem Pure hypercholesterolemia E78.0 Active 423038 004 Problem Priapism N48.30 Active 781922763 Problem Slow transit constipation K59.01 Active 815801 07 Problem Asthma J45.909 Active 419007327 Problem Dental caries K02.9 Active 58014758 Problem Pure hypercholesterolemia E78.00 Active 830342 09 Problem Acute pain of right knee M25.561 Active 9567165 3 Problem residential current use of insulin Z79.4 Active 871632147 Problem Type 2 diabetes mellitus without complications E11 .9 Active 09284350 ALLERGIES Allergen (clinical drug ingredient) Drug/Non Drug Allergy do cumented on EMR Reaction Allergy Type Onset Date Status trazodone TraZODone HCl([facility] Code:[address]-24) paiful erection Drug Allergy Active Bananas Hives, vomitting Non Drug Allergy Ac tive ENCOUNTERS from 1965 to 2020-07-05 Encounter Location Date Provider Diagnosis [address] [address] Jun, Ban Moya IMMUNIZATIONS Vaccine Route Administration Date Status Pneumococcal Adult 0.5mL (Pneumovax 23) IM Intramuscular Aug 10, 2019 Administered Hepatitis A & B 1mL (Twinrix) [...] IM Intramuscular Aug 06, 2011 Ad ministered zz*PPD (DO NOT USE) Unknown December 10, 2010 Administered Influenza (18 yrs & older) Flublok [...] Start Da te End Date Status Pen [place] 316" 31G X 5 MM 6 times [...] every 4 hrs for 30 day(s) Active Better Living YogaTouch Ultra 2 w/Device 1 glucometer ICD: 5 [...] Information RESULTS No Results REASON FOR VISIT No Information MEDICAL (GENERAL) HISTORY Type Description Date Medical [...] History due to pancreatis, 6 days @ [facility] 11/14 15 Hospitalization History pancreatitis 02/2016 [...] Insured Coverage Start Date Coverage End Date [facility] [address] [facility] [phone] NEGRO CHEN self
--- OUTSIDE RECORDS SUMMARY | 2020-08-09 18:19 | CCD ---
Author Author Robbie Lantigua Organization Unknown Address [address] [place] [address] Phone Care Team Providers Care Assistant Project Manager Name Role Phone Phan Lantigua PCP Allergies, Adverse Reactions, Alerts No Data in Section Problem List Concept Problem Description Status Start Date Created Date Resolv ed Date Snomed Code F43.23 Adjustment Disorder, With mixed anxiety and depressed mood Active 05/26/2020 F10.20 Alcohol Use Disorder, Moderate Active 0 F25.0 Schizoaffective Disorder, Bipolar type Active 1 F17.200 Tobacco Use Disorder, Severe Active 05/26/2020 F14.20 Stimulant Use Disorder. 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 Active 05/26 Medications No Data in Section Social History Social History Element Description Concept Effective Date Smoking Status Unknown if ever smoked [id number] 16381377 Immunizations No Data in Section Vital Signs No Data in Section Procedures Date Concept Id Description Targeted Site Concept Targeted Site Concept Type 05/26/2020 70712 Extended Individual Psychotherapy - 45 min CPT Patient has no history of implantable de vices Encounters Encounter Start Date End Date Encounter Type Description Diagnosis Di agnosis Desc Location Author First Name Author Last Name Npid Taxonomy Cod e Taxonomy Desc Phone Number Location Addr1 Location Addr2 Location City Location Sta te Location Zip [id number] 05/26/2020 05/26/2020 89084 Extended Individual Psych otherapy - 45 min F43.23 Adjustment disorder with mixed anxiety and depressed m ood [facility] Rhina Chisholm [id number] S tudent in an Organized Health Care Education/Training Program [phone] [address] [facility] [address] [facility] [address] Plan of Treatment No Data in Section Lab Results No Data in Section Instructions No Data in Section Insurance Providers Insurance Id Policy Effective Date Policy Thru Date Company N ramandeep [id number] 2019 [employer]-- Henrik BARTON
--- OUTSIDE RECORDS SUMMARY | 2020-08-09 18:19 | CCD ---
Author Author [facility] Organization [facility] Address Unknown Phone Unavailable Care Team Providers Care Supervisor Wet Pour Name Role Phone Ban Moya Unavailable PROBLEMS Type Condition ICD9-CM Code [id number] Code Onset Dates Condition S tatus SNOMED Code Notes Problem Esophageal reflux K21.9 Active 380615811 Problem Human immunodeficiency virus (HIV) disease B20 Active 35716273 Problem Chronic obstructive pulmonary disease, unspecified COPD ty pe J44.9 Active 95390257 Problem Bipolar affective disorder, currently depressed, moderate F31.32 Active 069863251 Problem Right upper quadrant abdominal pain R10.11 Acti ve 270243871 Problem Alcohol-induced chronic pancreatitis K86.0 Act kelley 912044552 Problem Gastroesophageal reflux disease, esophagitis pre sence not specified K21.9 Active 253362418 Problem Essential hypertension I10 Active 55840376 Problem Smoking F17.200 Active 42841488 Problem Left hip pain M25.552 Active 49513720 Problem Other chronic pain G89.29 Active 90259397 Problem Lumbago with sciatica, left side M54.42 Active 781910383 Problem Poor dentition K08.9 Active 558669443 Problem Erectile dysfunction, unspecified erectile dysfunction typ e N52.9 Active 944321986 Problem Superficial thrombophlebitis of left upper extremity I80.8 Active 38973081329167542 Problem Pure hypercholesterolemia E78.0 Active 707857 004 Problem Priapism N48.30 Active 041310368 Problem Slow transit constipation K59.01 Active 932296 07 Problem Asthma J45.909 Active 823653759 Problem Dental caries K02.9 Active 49767588 Problem Pure hypercholesterolemia E78.00 Active 541697 09 Problem Acute pain of right knee M25.561 Active 6573545 3 Problem nursing home current use of insulin Z79.4 Active 901950539 Problem Type 2 diabetes mellitus without complications E11 .9 Active 45310622 ALLERGIES Allergen (clinical drug ingredient) Drug/Non Drug Allergy do cumented on EMR Reaction Allergy Type Onset Date Status trazodone TraZODone HCl([facility] Code:[address]-27) paiful erection Drug Allergy Active Bananas Hives, vomitting Non Drug Allergy Ac tive ENCOUNTERS from 1965 to 2020-05-16 Encounter Location Date Provider Diagnosis [address] [address] Apr, Ban Moya IMMUNIZATIONS Vaccine Route Administration Date [...] MEDICATIONS Medication SIG (Take, Route, Frequency, Duration) Start Date En d Date Status One Touch Delica 33 gauge 1 needle subcutaneously four times daily for 30 day(s) Active Trazodone HCl 100 MG TAKE TWO TABLETS BY MOUTH AT BEDTIME for 30 Active Pen [place] 3/16" 31G X 5 MM 6 times a day subcutaneously Daily for 30 day(s) Active Metformin HCl 500 MG TAKE 1 TABLET BY MOUTH TWICE DAILY WITH A MEAL for 30 Active Colace 100 MG 1 capsule as needed Orally bid for 30 days Active Pantoprazole Sodium 40 MG TAKE ONE TABLET BY MOUTH DAILY for 30 Active Breo Ellipta 100-25 MCG/INH INHALE 1 PUFF BY MOUTH ONCE DAILY for 3 0 Active Clonidine HCl 0.1 MG TAKE ONE TABLET BY MOUTH DAILY AT BEDTIME for 30 Active SEROquel 300 MG 1 tablet at bedtime Orally qhs for 30 day(s) Active Senokot 8.6 MG 2 tablets at bedtime as needed Orally Once a day for 30 day(s) Active Sure Comfort Lancets 30G - USE FOUR TIMES A DAY for 25 Active Wellbutrin XL 300 MG 1 tablet Orally Once a day for 30 day(s) Active Blood Glucose Test Strip 1 1 strip subcutaneously four times daily for 30 day(s) Aug, Active Ramipril 5 MG 1 capsule Orally Once a day for 30 day(s) Active Ondansetron HCl 4 MG TAKE 1 TABLET BY MOUTH TWICE DAILY for 30 Active Admelog SoloStar 100 UNIT/ML as directed Subcutaneous three times daily for 30 days Active OneTouch Ultra 2 w/Device 1 glucometer ICD: 5 x daily as nee ded for 1 dose(s) Jul, Active Clonidine HCl 0.1 MG 1 tablet Orally qhs for 30 day(s) Active Proventil HFA 108 (90 Base) MCG/ACT 2 puffs as needed Inhalation every 4 hrs for 30 day(s) Active Ibuprofen 600 MG TAKE ONE TABLET BY MOUTH TWI CE A DAY WITH FOOD NEEDED for 30 Active Atorvastatin Calcium 40 MG TAKE ONE TABLET BY MOUTH DAILY for 30 Active Tamsulosin HCl 0.4 MG TAKE ONE CAPSULE BY MOUTH DAILY for 30 Active Triumeq 50mg/600mg/300mg 1 tablet Orally Once a day for 30 day(s) Active FreeStyle Lite Test - TEST BLOOD GLUCOSE 4 TIMES A DAY for 30 Active Viagra 50 MG 1 tablet as needed Orally Once a day for 30 day(s) Aug, Active Asmanex 60 Metered Doses 220 MCG/INH [...] Information RESULTS No Results REASON FOR VISIT refill MEDICAL (GENERAL) HISTORY Type Description Date Medical [...] History due to pancreatis, 6 days @ [facility] 11/14 15 Hospitalization History pancreatitis 02/2016 Hospitalization History pancreatitis 06/02/2017 Hospitalization History pancreatitis 09/2018 Hospitalization History paiful ercetion 06/2019 Hospitalization History mental health 2018 Goals Section No Information Health Concerns No [...] Orally Once a day for 30 Days Proventil HFA 108 (90 Base) MCG/ACT 2 puffs as needed Inhalation every 4 hrs for 30 day(s) Atorvastatin Calcium 40 MG TAKE ONE TABLET BY MOUTH DAILY for 30 Ramipril 5 MG 1 capsule Orally Once a day for 30 day(s) Ibuprofen 600 MG TAKE ONE TABLET BY MOUTH TWI A DAY WITH FOOD NEEDED for 30 Trazodone HCl 100 MG TAKE TWO TABLETS BY MOUTH AT BEDTIME for 30 Metformin HCl 500 MG TAKE 1 TABLET BY MOUTH TWICE DAILY WITH A M EAL for 30 Triumeq 50mg/600mg/300mg 1 tablet Orally Once a day for 30 day(s ) Ondansetron HCl 4 MG TAKE 1 TABLET BY MOUTH TWICE DAILY for 30 SEROquel 300 MG 1 tablet at bedtime Orally qhs for 30 day(s) Viagra 50 MG 1 tablet as needed Orally Once a day for 30 day( s) Aug, Clonidine HCl 0.1 MG 1 tablet Orally qhs for 30 day(s) Admelog SoloStar 100 UNIT/ML as directed Subcutaneous three times daily for 30 days Tamsulosin HCl 0.4 MG TAKE ONE CAPSULE BY MOUTH DAILY for 30 Wellbutrin XL 300 MG 1 tablet Orally Once a day for 30 day(s) Breo Ellipta 100-25 MCG/INH INHALE 1 PUFF BY MOUTH ONCE DAILY fo r 30 FreeStyle Lite Test - TEST BLOOD GLUCOSE 4 TIMES A DAY for 30 Senokot 8.6 MG 2 tablets at bedtime as needed Orally Once a day for 30 day(s) Colace 100 MG 1 capsule as needed Orally bid for 30 days Next Appt Details Provider Name:Ban Moya, 2020-11-1 7 11:30:00 AM, [address] [place], [address], Insurance Providers Payer Name Payer Address Payer Phone Insured Name Patient Relati onship to Insured Coverage Start Date Coverage End Date [employer] [address] [facility] [phone] NEGRO CHEN self
--- OUTSIDE RECORDS SUMMARY | 2020-08-09 18:19 | CCD ---
Author Author Robbie Ames Organization Unknown Address [address] [address] Phone Care Team Providers Care Ham Boner Name Role Phone HuiCelesteLeif PCP Allergies, Adverse Reactions, Alerts No Data in Section Problem List Concept Problem Description Status Start Date Created Date Resolv ed Date Snomed Code F43.23 Adjustment Disorder, With mixed anxiety and depressed mood Active 07/18/2020 F10.20 Alcohol Use Disorder, Moderate Active 0 F25.0 Schizoaffective Disorder, Bipolar type Active 1 09/18/2019 F17.200 Tobacco Use Disorder, Severe Active 07/18/2020 F14.20 Stimulant Use Disorder. 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 Active 07/18 Medications No Data in Section Social History Social History Element Description Concept Effective Date Smoking Status Unknown if ever smoked [id number] 47101654 Immunizations No Data in Section Vital Signs Encounter Date Height Ins Weight Lbs Bmi Bp Systolic Bp Diastoli c Oxygen Saturation Respiration Rate Pulse Rate Body Temp Head Circumference Heigh t Lying 07/18/2020 0.00 0.00 0.00 0 0 0.00 0 0 0.00 0.0 0.0 0 Procedures Date Concept Id Description Targeted Site Concept Targeted Site Concept Type 07/18/2020 91301-99 [facility] Telemed E/M Lvl 3--Est pt CPT 07/18/2020 58825-54 Telemed A/O 30" CPT Patient has no history of implantable de vices Encounters Encounter Start Date End Date Encounter Type Description Diagnosis Di agnosis Desc Location Author First Name Author Last Name Npid Taxonomy Cod e Taxonomy Desc Phone Number Location Addr1 Location Addr2 Location [facility] Location [facility] Location [facility] [address] 07/18/2020 07/18/2020 [address]-16 [facility] Telemed E/M Lvl 3--Est p t F43.23 Adjustment disorder with mixed anxiety and depressed mood [facility] Hui Yadav [id number] Nurse Practitioner [phone] [address] [phone] Plan of Treatment No Data in Section Lab Results No Data in Section Instructions No Data in Section Functional Cognitive Status No Data in Section Insurance Providers Insurance Id Policy Effective Date Policy Thru Date [employer] N ramandeep [id number] 2019 [employer]-- Henrik BARTON
--- OUTSIDE RECORDS SUMMARY | 2020-08-09 18:19 | CCD ---
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 Role Phone Ban Moya Unavailable PROBLEMS Type Condition ICD9-CM Code XXO89-DF Code Onset Dates Condition S tatus SNOMED Code Notes Problem Esophageal reflux K21.9 Active 772257114 Problem Human immunodeficiency virus (HIV) disease B20 Active 09524528 Problem Chronic obstructive pulmonary disease, unspecified COPD ty pe J44.9 Active 41010702 Problem Bipolar affective disorder, currently depressed, moderate F31.32 Active 617523672 Problem Right upper quadrant abdominal pain R10.11 Acti ve 793123740 Problem Alcohol-induced chronic pancreatitis K86.0 Act kelley 554656078 Problem Gastroesophageal reflux disease, esophagitis pre sence not specified K21.9 Active 945740307 Problem Essential hypertension I10 Active 66442204 Problem Smoking F17.200 Active 92557928 Problem Left hip pain M25.552 Active 81981493 Problem Other chronic pain G89.29 Active 58381007 Problem Lumbago with sciatica, left side M54.42 Active 826018630 Problem Poor dentition K08.9 Active 560041751 Problem Erectile dysfunction, unspecified erectile dysfunction typ e N52.9 Active 164238662 Problem Superficial thrombophlebitis of left upper extremity I80.8 Active 55575247816432008 Problem Pure hypercholesterolemia E78.0 Active 014497 004 Problem Priapism N48.30 Active 276365432 Problem Slow transit constipation K59.01 Active 537584 07 Problem Asthma J45.909 Active 652079130 Problem Dental caries K02.9 Active 38828058 Problem Pure hypercholesterolemia E78.00 Active 895572 09 Problem Acute pain of right knee M25.561 Active 9543646 3 Problem group home current use of insulin Z79.4 Active 311841496 Problem Type 2 diabetes mellitus without complications E11 .9 Active 10470523 ALLERGIES Allergen (clinical drug ingredient) Drug/Non Drug Allergy do cumented on EMR Reaction Allergy Type Onset Date Status trazodone TraZODone HCl([facility] Code:[address]-16) paiful erection Drug Allergy Active Bananas Hives, vomitting Non Drug Allergy Ac tive ENCOUNTERS from 1965 to 2020-06-14 Encounter Location Date Provider Diagnosis [address] [address] 17 May, 2020 Ban Moya IMMUNIZATIONS Vaccine Route Administration Date Status Hepatitis A & B 1mL (Twinrix) IM Intramuscular December 26, 2011 A dministered Pneumococcal 0.5mL (Prevnar 13) IM Intramuscular May 25, 2012 Administered Meningococcal IM Intramuscular December 12, 2016 Administered Influenza (6mo & up) Fluzone IM Intramuscular May 15, 2017 Ad ministered zz*PPD (DO NOT USE) Unknown December 10, 2010 Administered Hepatitis A & B 1mL (Twinrix) IM Intramuscular December 20, 2010 A dministered Hepatitis A & B 1mL (Twinrix) IM Intramuscular Aug 06, 2011 A dministered Influenza (6mo & up) Fluzone IM Intramuscular Aug 06, 2011 Ad ministered Pneumococcal Adult 0.5mL (Pneumovax 23) IM Intramuscular Aug 10, 2019 Administered Influenza (18 yrs & older) Flublok IM Intramuscular Aug 10, 2019 Administered Pneumococcal Adult 0.5mL (Pneumovax 23) Unknown October Administered TDAP Unknown December 12, 2010 Administered Influenza (6mo & up) Fluzone IM [...] Notes Start Da te End Date Status One Touch Delica 33 gauge 1 needle subcutaneously four times daily for 30 day(s) Active Trazodone HCl 100 MG TAKE TWO TABLETS BY MOUTH AT BEDTIME for 30 Active Pen Kinde 3/16" 31G X 5 MM 6 times [...] BY MOUTH ONCE DAILY for 30 Active Clonidine HCl 0.1 MG TAKE ONE [...] as needed for 1 dose(s) Jul, Active Clonidine HCl [...] Information RESULTS No Results REASON FOR VISIT no show MEDICAL (GENERAL) HISTORY Type Description Date Medical [...] History due to pancreatis, 6 days @ [facility] 11/14 15 Hospitalization History pancreatitis 02/2016 [...] as needed Orally bid for 30 days Insurance Providers Payer Name Payer Address Payer Phone Insured Name Patient Relati onship to Insured Coverage Start Date Coverage End Date [facility] [address] [facility] [phone] NEGRO CHEN self
--- OUTSIDE RECORDS SUMMARY | 2020-08-09 18:19 | CCD | Continuity of Care Document ---
Author Author Robbie BABCOCK P.A. 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 Name Role Phone Ban Moya MD AUTM [phone] Problems Active Problems Provider Date Closed anterior [...] day Unknown Seroquel 300mg Tablets Unknown Atripla [phone] Tablets Unknown Proventil HFA 108(90Base) mcg/Act Aerosol Unknown Immunizations Description No Information Available Vital Signs Date Vital Result Comment 03/30/2020 1:38pm Body Temperature 96.3 F Height 69 inches 5'9" Weight 155.00 lb BMI (Body Mass Index) 22.9 kg/m2 05/23/2015 10:33am Body Temperature 96.6 F Height 69.25 inches 5'9.25" Weight 165.38 lb BMI (Body Mass Index) 24.2 kg/m2 Results Description No Information Available Procedures Date Code Description Status 06/09/2020 36792 X-Ray Shoulder Complete Complete d 06/09/2020 92691 X-Ray Shoulder Complete Complete d 03/30/2020 82802 X-Ray Knee Complete W/Obliques & Tunnel And/Or Standing Views Completed 03/30/2020 39104 X-Ray Hip Unilateral With Pelvis 2-3 Views Completed 03/30/2020 82744 X-Ray Spine Lumbosacral Complete Inc Bending Views Min Of 6 Completed Medical Devices Description No Information Available Encounters Type Date Location Provider Dx Diagnosis Office Visit 03/30/2020 1:00p [place] Rah Babcock, P.A. M16.12 Unilateral primary osteoarthritis, left hip M17.11 Unilateral primary osteoarth ritis, right knee M51.36 Other intervertebral disc de generation, lumbar region Assessments Date Code Description Provider 06/09/2020 M51.36 Other intervertebral disc degene ration, lumbar region Rah Babcock, P.A. 06/09/2020 M24.411 Recurrent dislocation, right chuy ulder Rah Babcock, P.A. 06/09/2020 M24.412 Recurrent dislocation, left shou lder Rah Babcock, P.A. 03/30/2020 M16.12 Unilateral primary osteoarthriti s, left hip Rah Babcock, P.A. 03/30/2020 M17.11 Unilateral primary osteoarthriti s, right knee Rah Babcock, P.A. 03/30/2020 M51.36 Other intervertebral disc degene ration, lumbar region Rah Babcock, P.A. Plan of Treatment 06/09/2020 - Rah Babcock, P.A.* M51.36 Other intervertebral disc degeneration, lumbar region * M24.411 Recurrent dislocation, right shoulder* New Xrays:* MRI Arthrogram RT Shoulder, Ordered: 06/09/20 * Follow up:* with MR-A results bilat shoulders * M24.412 Recurrent dislocation, left shoulder* New Xrays:* MRI Arthrogram LT Shoulder, Ordered: 06/09/20 Functional Status Description No Information Available Mental Status Description No Information Available Referrals Refer to Reason for Referral Status Appt Date Rah Babcock, PA INJ NO AUTH REQUIRED FOR LEFT HIP I [place] TO X-RAY. DG Created [address] [place] [address] [address] [place] [address] [phone]
--- OUTSIDE RECORDS SUMMARY | 2020-08-09 18:20 | CCD ---
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 [employer] Name Role Phone RENO BABCOCK PA Unavailable Unavailable MCELHERAN RENO PA Unavailable Unavailable MCELHERAN, RENO PA Unavailable Unavailable MCELHERAN, RENO PA Unavailable Unavailable MCELHERAN, RENO PA Unavailable Unavailable MCELHERAN, RENO PA Unavailable Unavailable MCELHERAN, RENO PA Unavailable Unavailable MCELHERAN, RENO PA Unavailable Unavailable MCELHERAN, RENO PA Unavailable Unavailable MCELHERAN, RENO PA Unavailable Unavailable MCELHERAN, RENO PA Unavailable Unavailable MCELHERAN, RENO PA Unavailable Unavailable MCELHERAN, RENO PA Unavailable Unavailable MCELHERAN, RENO PA Unavailable Unavailable MCELHERAN, RENO PA Unavailable Unavailable MCELHERAN, RENO PA Unavailable Unavailable MCELHERAN, RENO PA Unavailable Unavailable MCELHERAN, RENO PA Unavailable Unavailable MCELHERAN, RENO PA Unavailable Unavailable MCELHERAN, RENO PA Unavailable Unavailable MCELHERAN, RENO PA Unavailable Unavailable MCELHERAN, RENO PA Unavailable Unavailable MCELHERAN, RENO PA Unavailable Unavailable MCELHERAN, RENO PA Unavailable Unavailable MCELHERAN, RENO PA Unavailable Unavailable MCELHERAN, RENO PA Unavailable Unavailable MCELHERAN, RENO PA Unavailable Unavailable MCELHERAN, RENO PA Unavailable Unavailable Theron Shannon Unavailable Theron, Shannon Unavailable Philippe Moya MD Unavailable Unavailable Philippe Moya MD Unavailable Unavailable Philippe Moya MD Unavailable Unavailable Philippe Moya MD Unavailable Unavailable Philippe Moya MD Unavailable Unavailable Philippe Moya MD Unavailable Unavailable Philippe Moya MD Unavailable Unavailable Philippe Moya MD Unavailable Unavailable Philippe Moya MD Unavailable Unavailable Philippe Moya MD Unavailable Unavailable Philippe Moya MD Unavailable Unavailable Philippe Moya MD Unavailable Unavailable Philippe Moya MD Unavailable Unavailable Philippe Moya MD Unavailable Unavailable Philippe Moya MD Unavailable Unavailable Philippe Moya MD Unavailable Unavailable Philippe Moya MD Unavailable Unavailable Philippe Moya MD Unavailable Unavailable Philippe Moya MD Unavailable Unavailable Philippe Moya MD Unavailable Unavailable Philippe Moya MD Unavailable Unavailable Philippe Moya MD Unavailable Unavailable Philippe Moya MD Unavailable Unavailable Philippe Moya MD Unavailable Unavailable Philippe Moya MD Unavailable Unavailable Philippe Moya MD Unavailable Unavailable Philippe Moya MD Unavailable Unavailable Philippe Moya MD Unavailable Unavailable Philippe Moya MD Unavailable Unavailable Philippe Moya MD Unavailable Unavailable Philippe Moya MD Unavailable Unavailable Philippe Moya MD Unavailable Unavailable Philippe Moya MD Unavailable Unavailable Nita, Philippe Barkleye MD Unavailable Unavailable Nita, J Rubiae MD Unavailable Unavailable Nita, J Lilianalene MD Unavailable Unavailable Nita, J Lilianalene MD Unavailable Unavailable Nita, J Lilianalene MD Unavailable Unavailable Nita, J Lilianalene MD Unavailable Unavailable Nita, J Marylene MD Unavailable Unavailable Nita, J Marylene MD Unavailable Unavailable Nita, J Lilianalene MD Unavailable Unavailable Nita, J Lilianalene MD Unavailable Unavailable Nita, J Marylene MD Unavailable Unavailable Nita, J Marylene MD Unavailable Unavailable Nita, J Marylene MD Unavailable Unavailable Nita, J Marylene MD Unavailable Unavailable Nita, J Marylene MD Unavailable Unavailable Nita, J Marylene MD Unavailable Unavailable Nita, J Marylene MD Unavailable Unavailable Nita, J Marylene MD Unavailable Unavailable Nita, J Marylene MD Unavailable Unavailable Nita, J Marylene MD Unavailable Unavailable Zuleyka Ames NP Unavailable Unavailable Phan Lantigua Unavailable Re-disclosure Warning The records that you are about to access may contain information from federally-assisted alcohol or drug abuse programs. If such information is present, then the following federally mandated warning applies: This information has been disclosed to you from records protected by federal confidentiality rules (42 CFR part 2). The federal rules prohibit you from making any further disclosure of this information unless further disclosure is expressly permitted by the written consent of the person to whom it pertains or as otherwise permitted by 42 CFR part 2. A general authorization for the release of medical or other information is NOT sufficient for this purpose. The Federal rules restrict any use of the information to criminally investigate or prosecute any alcohol or drug abuse patient.The records that you are about to access may contain highly sensitive health information, the redisclosure of which is protected by Article 27-F of the [facility] Public Health law. If you continue you may have access to information: Regarding HIV / AIDS; Provided by facilities licensed or operated by the [facility] Office of Mental Health; or Provided by the [facility] Office for People With Developmental Disabilities. If such information is present, then the following [facility] mandated warning applies: This information has been disclosed to you from confidential records which are protected by state law. State law prohibits you from making any further disclosure of this information without the specific written consent of the person to whom it pertains, or as otherwise permitted by law. Any unauthorized further disclosure in violation of state law may result in a fine or senior living sentence or both. A general authorization for the release of medical or other information is NOT sufficient authorization for further disc losure. Allergies and Adverse Reactions Type Description Substance Reaction Status Data Source(s ) Drug allergy TraZODone HCl Trazodone paiful erection Active eCW 1 ([facility]) Bananas Bananas Bananas Hives, vomitting Active eCW1 ([facility]) Encounters Encounter Providers Location Date Indications Data Source(s ) Extended Individual Psychotherapy - 45 min Attender: Skyla Gold [facility] 07/31/2020 10:45:00 AM EST - 07/31/2020 10:45:00 AM EST [facility] ([facility]) Attender: Phan Lantigua 07/31/2020 12:00:[address] [facility] ([facility]) Outpatient Attender: Leif Ames NP [facility] 07/18/2020 04:00:00 AM EST - 07/18/2020 04:00:00 AM EST [facility] ([facility]) Attender: Leif Ames NP 07/18/2020 12:00:00 AM EST [facility] ([facility]) [place] [address] [facility] [place] [address] 06/30/2020 12:00:00 AM EST eCW1 ([facility]) Unknown [address] [facility] [address] 06/28/2020 12:00:00 AM EST eCW1 ([facility]) Extended Individual Psychotherapy - 45 min Attender: Skyla Gold [facility] 06/26/2020 11:00:00 AM EST - 06/26/2020 11:00:00 AM EST [facility] ([facility]) Attender: Phan Lantigua 06/26/2020 12:00:[address] [facility] ([facility]) Unknown [address] [facility] [address] 06/13/2020 12:00:00 AM EST eCW1 ([facility]) Outpatient Attender: RENO JACOB Physical Therapy 06/09/2020 12:30:00 PM EST [facility] ([facility]) Outpatient Attender: Leif Ames NP [facility] 06/07/2020 11:00:00 AM EST - 06/07/2020 11:00:00 AM EST [facility] ([facility]) Extended Individual Psychotherapy - 45 min Attender: Skyla Gold [facility] 06/07/2020 03:00:00 AM EST - 06/07/2020 03:00:00 AM EST [facility] ([facility]) Attender: Leif Ames NP 06/07/2020 12:00:00 AM EST [facility] ([facility]) Attender: Phan Lantigua 06/07/2020 12:00:[address] [facility] ([facility]) Extended Individual Psychotherapy - 45 min Attender: Skyla Gold [facility] 05/26/2020 12:00:00 PM EDT - 05/26/2020 12:00:00 PM EDT [facility] ([facility]) Attender: Phan Lantigua 05/26/2020 12:00:00 AM E DT [facility] ([facility]) Telemed Diagnostic Eval Attender: Leif Ames NP [facility] 05/24/2020 11:00:00 AM EDT - 05/24/2020 11:00:00 AM EDT [facility] ([facility]) Attender: Leif Ames NP 05/24/2020 12:00:00 AM EDT [facility] ([facility]) [place] [address] [facility] [address] 05/16/2020 12:00:00 AM EDT eCW1 ([facility]) Extended Individual Psychotherapy - 45 min Attender: Skyla Gold [facility] 05/10/2020 04:00:00 AM EDT - 05/10/2020 04:00:00 AM EDT [facility] ([facility]) Attender: Phan Lantigua 05/10/2020 12:00:00 AM E DT [facility] ([facility]) Extended Individual Psychotherapy - 45 min Attender: Andrez Crump [facility] 04/05/2020 11:00:00 AM EDT - 04/05/2020 11:00:00 AM EDT [facility] ([facility]) Attender: Shannon Crump 04/05/2020 12:00:00 AM EDT [facility] ([facility]) Office Visit Attender: RENO JACOB Physical Therapy 03/30/2020 01:00:00 PM EDT [facility] ([facility]) Outpatient Referrer: Ban Moya MD 01/20/2020 05:30:00 AM EDT [facility] [address] [address] 01/05/2020 12:00:00 AM EDT [facility]) Outpatient Referrer: Ban Moya MD 12/15/2019 05:21:00 AM EDT [facility] [address] [address] 11/16/2019 12:00:00 AM EDT eCW1 ([facility]) [address] [place] [address] 10/08/2019 12:00:00 AM EDT eCW1 ([facility]) [facility] [address] [place] [address], [place] [address] 09/27/2019 12:00:00 AM EST eCW1 ([facility]) [address] [address] 09/27/2019 12:00:00 AM EST eCW1 ([facility]) [address] [place] [address] 09/08/2019 12:00:00 AM EST eCW1 ([facility]) [facility] [address] [facility] [address] 08/13/2019 12:00:00 AM EST eCW1 ([facility]) [facility] [address] [facility] [address] 08/10/2019 12:00:00 AM EST eCW1 ([facility]) [facility] [address] [place] [address], [place] [address] 08/10/2019 12:00:00 AM EST eCW1 ([facility]) [facility] [address] [facility] [address] 07/01/2019 12:00:00 AM EST eCW1 ([facility]) [facility] [address] [facility] [address] 06/18/2019 12:00:00 AM EST eCW1 ([facility]) Functional Status Immunizations Vaccine Date Status Description Data Source(s) influenza, recombinant, quadrIvalent,injectable, prese rvative free 08/10/2019 07:31:00 AM EST completed [facility] influenza, recombinant, quadrIvalent,injectable, prese rvative free 08/10/2019 07:31:00 AM EST completed eCW1 ([facility]) influenza, recombinant, quadrIvalent,injectable, prese rvative free 08/10/2019 07:31:00 AM EST completed eCW1 ([facility]) influenza, recombinant, quadrIvalent,injectable, prese rvative free 08/10/2019 07:31:00 AM EST completed eCW1 ([facility]) influenza, recombinant, quadrIvalent,injectable, prese rvative free 08/10/2019 07:31:00 AM EST completed eCW1 ([facility]) influenza, recombinant, quadrIvalent,injectable, prese rvative free 08/10/2019 07:31:00 AM EST completed eCW1 ([facility]) pneumococcal polysaccharide PPV23 08/10/2019 07:30:00 AM EST comple sushant eCW1 ([facility]) pneumococcal polysaccharide PPV23 08/10/2019 07:30:00 AM EST comple sushant eCW1 ([facility]) pneumococcal polysaccharide PPV23 08/10/2019 07:30:00 AM EST comple sushant eCW1 ([facility]) pneumococcal polysaccharide PPV23 08/10/2019 07:30:00 AM EST comple sushant eCW1 ([facility]) pneumococcal polysaccharide PPV23 08/10/2019 07:30:00 AM EST comple sushant eCW1 ([facility]) pneumococcal polysaccharide PPV23 08/10/2019 07:30:00 AM EST comple sushant eCW1 ([facility]) Medications Medication Brand Name Start Date Product Form Dose Route Admi nistrative Instructions Pharmacy Instructions Status Indications Reaction Description Data Source(s) Prazosin 1 MG Oral Capsule prazosin 05/04/2019 12:00:00 AM EDT 1 mg completed [id number] prazosin 05/04/2019 05/24/2020 30 1 mg capsule [id number] Bradford Landrum [id number] Psych[facility]Mental [facility] ([facility]) 12 HR Bupropion Hydrochloride 150 MG Extended Release Oral T ablet bupropion HCl 02/09/2019 12:00:00 AM EDT 150 mg by mouth completed [id number] bupropion HCl by mouth [id number] 02/09/2019 09/07/2019 twice a day 30 150 mg table t sustained-release 12 hr with meals 67160 [id number] Bradford Davis [id number] Psychiatric[facility]Mental [facility] ([facility]) quetiapine 400 MG Oral Tablet quetiapine 02/09/2019 12:00:00 AM EDT 400 mg completed [id number] quetiapine 02/09/2019 09/07/2019 at bedtime 30 400 mg tablet 37156 170960 [id number] Bradford Landrum [id number] Psychiatric/Mental Health [facility] ([facility]) Trazodone Hydrochloride 100 MG Oral Tablet trazodone 09/01 12:00:00 AM EST 100 mg completed [id number] trazodone 201805/24/2020 at bedtime 100 mg tablet [id number] Bradford Rojas [id number] Psychiatric/Mental Health [facility] ([facility]) Insurance Providers Payer name Policy type / Coverage type Policy ID Covered democrat ID Covered democrat's relationship to hendricks Policy Hendricks Plan Information RAGHU [id number] SP [id number] RAGHU [facility] O [id number] S [id number] [place] [id number] SP [id number] MEDICAID [id number] SP [id number] ANSI-Medicaid [id number] ANSI-Commercial [id number] ANSI-Medicaid [id number] ANSI-Medicaid [id number] ANSI-Commercial [id number] ANSI-Medicaid [id number] ANSI-Medicaid [id number] ANSI-Medicaid [id number] ANSI-Commercial [id number] RAGHU [id number] SP [id number] SELF PAY RAGHU [id number] SP [id number] 500 SELF PAY RAGHU [id number] SP [id number] 500 SELF PAY RAGHU [id number] SP [id number] 500 SELF PAY RAGHU [id number] SP [id number] SELF PAY RAGHU [id number] SP [id number] SELF PAY RAGHU unk SP unk [facility]-Medicaid [id number] [facility]-Medicaid [id number] ANSI-Commercial [id number] ANSI-Commercial [id number] ANSI-Medicaid [id number] [facility] [id number] ANSI-Commercial [id number] ANSI-Medicaid [id number] ANSI-Medicaid [id number] ANSI-Medicaid [id number] ANSI-Commercial [id number] ANSI-Medicaid [id number] ANSI-Commercial [id number] ANSI-Medicaid [id number] ANSI-Medicaid [id number] ANSI-Medicaid [id number] ANSI-Commercial [id number] ANSI-Medicaid [id number] [facility]-Medicaid [id number] ANSI-Medicaid [id number] ANSI-Commercial [id number] [facility]-Medicaid [id number] ANSI-Commercial [id number] [facility]-Medicaid [id number] [facility]-Medicaid [id number] ANSI-Commercial [id number] ANSI-Medicaid [id number] ANSI-Commercial [id number] ANSI-Medicaid [id number] ANSI-Medicaid [id number] [facility] 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 DEPT [id number] SP [id number] MEDICAID M [id number] S [id number] [facility] O [id number] S [id number] ANSI-Medicaid [id number] ANSI-Medicaid [id number] ANSI-Medicaid [id number] ANSI-Medicaid [id number] ANSI-Medicaid [id number] ANSI-Medicaid [id number] ANSI-Medicaid [id number] ANSI-Medicaid [id number] MEDICAID (101) [id number] SELF PAY ONLY SP MEDICAID [id number] Patient [id number] [facility]-Medicaid [id number] [facility]-Medicaid [id number] [facility] [id number] [facility]-Medicaid [id number] [facility]-Medicaid [id number] [facility]-Medicaid [id number] SELF PAY SELF PAY Patient SELF PAY [employer] MEDICARE PPO [id number] Patient [id number] [facility]-Medicaid [id number] [facility] [id number] [employer] MEDICARE PPO [id number] Patient [id number] [employer] MEDICARE PPO [id number] Patient [id number] [employer] MCDHMO [id number] SP [id number] [employer] COMMUNITY PLAN MCDHMO [id number] SP [id number] [facility] [id number] SP [id number] [employer] MCDHMO [id number] SP [id number] [id number] SP [id number] [facility]) O [id number] S [id number] MEDICAID [id number] SP [id number] MEDICAID [id number] SP [id number] MEDICAID M [id number] S [id number] POMCO [id number] SP [id number] [employer] MCDHMO [id number] SP [id number] MEDICAID [id number] SP [id number] HMO BLUE [id number] SP [id number] BLUE CROSS CANALES PLAN [id number] SP [id number] [employer] COMM[employer]AN MCDO [id number] SP [id number] [employer] P [id number] S [id number] SELF PAY [id number] SP [id number] Problems, Conditions, and Diagnoses Code Display Name Description Problem Type Effective Dates Data Source(s) 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 Moderate: Cocaine Condition 07/31/2020 12:00:00 AM EST [facility] ([facility]) F17.200 Nicotine dependence, unspecified, uncomp licated Tobacco Use Disorder, Severe Condition 07/31/2020 12:00:00 AM EST [facility] ([facility]) F25.0 Schizoaffective disorder, bipolar type S chizoaffective Disorder, Bipolar type Condition 07/31/2020 12:00:00 AM EST [facility] ([facility]) F10.20 Alcohol dependence, uncomplicated Alcohol Use Di sorder, Moderate Condition 07/31/2020 12:00:00 AM EST [facility] ([facility]) F43.23 Adjustment disorder with mixed anxiety a nd depressed mood Adjustment Disorder, With mixed anxiety and depressed mood Condition 2020 12:00:00 AM EST [facility] ([facility]) N48.30 [id number] Priapism Problem 08/10/2019 12:00:00 AM ES T [email or web address] ([facility]) N48.30 [id number] Priapism Problem 08/10/2019 12:00:00 AM ES T [email or web address] ([facility]) Surgeries/Procedures Procedure Description Date Indications Data Source(s) Extended Individual Psychotherapy - 45 min 07/31/2020 12:00:00 AM EST - 07/31/2020 12:00:00 AM EST [facility] ([facility]) Extended Individual Psychotherapy - 45 min 12:00:00 AM EST [facility] ([facility]) MHC Telemed E/M Lvl 3--Est pt 07/18/2020 12:00:00 AM EST - 07/18/2020 12:00:00 AM EST [facility] ([facility]) Telemed A/O 30" 07/18/2020 12:00:00 AM EST [facility] ([facility]) MHC Telemed E/M Lvl 3--Est pt 07/18/2020 12:00:[address] [facility] ([facility]) Extended Individual Psychotherapy - 45 min 06/26/2020 12:00:00 AM EST - 06/26/2020 12:00:00 AM EST [facility] ([facility]) Extended Individual Psychotherapy - 45 min 0 12:00:00 AM EST [facility] ([facility]) RADEX SHOULDER COMPLETE MINIMUM 2 VIEWS 06/09/2020 12: 00:00 AM EST [facility] ([facility] ) RADEX SHOULDER COMPLETE MINIMUM 2 VIEWS 06/09/2020 12: 00:00 AM EST [facility] ([facility]) MHC Telemed E/M Lvl 3--Est pt 06/07/2020 12:00:00 AM EST - 06/07/2020 12:00:00 AM EST [facility] ([facility]) MHC Telemed E/M Lvl 3--Est pt 06/07/2020 12:00:[address] [facility] ([facility]) Extended Individual Psychotherapy - 45 min 06/07/2020 12:00:00 AM EST - 06/07/2020 12:00:00 AM EST [facility] ([facility]) Extended Individual Psychotherapy - 45 min 0 12:00:00 AM EST [facility] ([facility]) Extended Individual Psychotherapy - 45 min 05/26/2020 12:00:00 AM EDT - 05/26/2020 12:00:00 AM EDT [facility] ([facility]) Extended Individual Psychotherapy - 45 min 0 12:00:00 AM EDT [facility] ([facility]) Telemed Diagnostic Eval 05/24/2020 12:00 :00 AM EDT - 05/24/2020 12:00:00 AM EDT [facility] ([facility]) Telemed Diagnostic Eval 05/24/2020 12:00:00 AM EDT [facility] ([facility]) Extended Individual Psychotherapy - 45 min 05/10/2020 12:00:00 AM EDT - 05/10/2020 12:00:00 AM EDT [facility] ([facility]) Extended Individual Psychotherapy - 45 min 0 12:00:00 AM EDT [facility] ([facility]) Extended Individual Psychotherapy - 45 min 04/05/2020 12:00:00 AM EDT - 04/05/2020 12:00:00 AM EDT [facility] ([facility]) Extended Individual Psychotherapy - 45 min 0 12:00:00 AM EDT [facility] ([facility]) X-Ray Spine Lumbosacral Complete Inc Bending Views Min Of 6 03/30/2020 12:00:00 AM EDT [facility] ([facility] ) X-Ray Hip Unilateral With Pelvis 2-3 Views 03/30/2020 12:00:00 AM EDT [facility] ([facility] ) RADIOLOGIC EXAM KNEE COMPLETE 4/MORE VIEWS 03/30/2020 12:00:00 AM EDT [facility] ([facility] ) Pneumococcal Adult 0.5mL (Pneumovax 23) 08/10/2019 12: 00:00 AM EST eCW1 ([facility]) IMMUNIZATION ADMIN 08/10/2019 12:00:00 AM EST eCW1 ([facility]) RIV4 VACC RECOMBINANT DNA IM 08/10/2019 12:00:00 AM ES T eCW1 ([facility]) IMMUNIZATION ADMIN EACH ADD 08/10/2019 12:00:00 AM EST eCW1 ([facility]) Results ID Date Data Source [id number] 03/16/2020 11:06:00 AM EDT [facility] Name Value Range Interpretation Code Description Data Linh rce(s) Supporting Document(s) Absolute CD 4 [place] 779 /uL [phone] [facility] % CD 4 Pos. Lymph. 48.7 % 30.8-58.5 [facility] Abs. CD 8 Suppressor 496 /uL 109-897 [facility] % CD 8 Pos. Lymph. 31.0 % 12.0-35.5 [facility] CD4/CD8 Ratio 1.57 0.92-3.72 [facility] WBC 3.9 x10E3/uL 3.4-10.8 [facility] RBC 3.81 x10E6/uL 4.14-5.80 Below low normal [facility] Hemoglobin 12.6 g/dL 13.0-17.7 Below low normal [facility] Hematocrit 36.5 % 37.5-51.0 Below low normal [facility] MCV 96 fL 79-97 [facility] MCH 33.1 pg 26.6-33.0 Above high normal [facility] MCHC 34.5 g/dL 31.5-35.7 [facility] RDW 12.8 % 11.6-15.4 [facility] Platelets 213 x10E3/uL 150-450 [facility] Neutrophils 43 % Not Estab. [facility] Lymphs 41 % Not Estab. [facility] Monocytes 12 % Not Estab. [facility] Eos 3 % Not Estab. [facility] Basos 1 % Not Estab. [facility] Neutrophils (Absolute) 1.7 x10E3/uL 1.4-7.0 [facility] Lymphs (Absolute) 1.6 x10E3/uL 0.7-3.1 [facility] Monocytes(Absolute) 0.5 x10E3/uL 0.1-0.9 [facility] Eos (Absolute) 0.1 x10E3/uL 0.0-0.4 [facility] Baso (Absolute) 0.0 x10E3/uL 0.0-0.2 [facility] Immature Granulocytes 0 % Not Estab. [facility] Immature Grans (Abs) 0.0 x10E3/uL 0.0-0.1 [facility] ID Date Data Source [id number] 03/18/2020 10:06:00 AM EDT [facility] Name Value Range Interpretation Code Description Data Linh rce(s) Supporting Document(s) HIV-1 RNA by PCR <20 copies/mL [facility] HIV-1 RNA not detected Th e reportable range for this assay is 20 to 10,000,000copies HIV-1 RNA/mL. log10 HIV-1 RNA [facility] Unable to calculate result since non-num fer result obtained forcomponent test. ID Date Data Source HIV-1 RNA PCR QUANT [id number] 08/10/2019 12:00:00 AM EST eCW1 ([facility]) Name Value Range Interpretation Code Description Data Linh rce(s) Supporting Document(s) HIV 1 RNA [Units/volume] (viral load) in Serum or Plasma by Probe with amplification <20 . HIV-1 RNA PCR QUANT 2 [id number] eCW1 ([facility]) HIV-1 RNA PCR QUANT 2 [id number] ID Date Data Source CD4/CD8 RATIO PROFILE [id number] 08/10/2019 12:00:00 AM EST eC W1 ([facility]) Name Value Range Interpretation Code Description Data Linh rce(s) Supporting Document(s) [phone] Abs CD8 Suppres eCW1 ([facility]) Abs CD8 Suppres Deprecated CD4 in Blood [phone] Abs CD4 Help er eCW1 ([facility]) Abs CD4 [place] 51.9 30.8-58.5 %CD4 Pos Lymphs eCW1 ([facility]) %CD4 Pos Lymphs 28.5 12.0-35.5 % CD8 Pos Lymph eCW1 ([facility]) % CD8 Pos Lymph 3.90 4.14-5.80 RBC eCW1 ([facility]) RBC 1.82 0.92-3.72 CD4/CD8 Ratio eCW1 ([facility]) CD4/CD8 Ratio 4.3 3.4-10.8 WBC eCW1 ([facility]) WBC 93 79-97 MCV eCW1 ([facility]) MCV 36.4 37.5-51.0 HCT eCW1 ([facility]) HCT 12.2 13.0-17.7 HGB eCW1 ([facility]) HGB 13.7 11.6-15.4 RDW eCW1 ([facility]) RDW 33.5 31.5-35.7 MCHC eCW1 ([facility]) MCHC 31.3 26.6-33.0 MCH eCW1 ([facility]) MCH 201 150-450 Platelets eCW1 ([facility]) Platelets 35 Not Estab. Lymphocytes eCW1 ([facility]) Lymphocytes 46 Not Estab. Neutrophils eCW1 ([facility]) Neutrophils 16 Not Estab. Monocytes eCW1 ([facility]) Monocytes 1 Not Estab. Basophils eCW1 ([facility]) Basophils 2 Not Estab. Eosinophils eCW1 ([facility]) Eosinophils 1.5 0.7-3.1 ABS Lymphs eCW1 ([facility]) ABS Lymphs 2.0 1.4-7.0 ABS Neutophils eCW1 ([facility]) ABS Neutophils 0.7 0.1-0.9 ABS Monocytes eCW1 ([facility]) ABS Monocytes 0.0 0.0-0.2 ABS Basophils eCW1 ([facility]) ABS Basophils 0.1 0.0-0.4 ABS Eosinophils eCW1 ([facility]) ABS Eosinophils ID Date Data Source SYPHILIS ANTIBODY (RPR SCREEN) 08/10/2019 12:00:00 AM EST eC W1 ([facility]) Name Value Range Interpretation Code Description Data Linh rce(s) Supporting Document(s) NONREACTIVE NONREACTIVE SYPHILIS eCW1 ([facility]) SYPHILIS ID Date Data Source [id number] 08/10/2019 12:00:00 AM EST eCW1 ([facility]) Name Value Range Interpretation Code Description Data Linh rce(s) Supporting Document(s) Hemoglobin A1c/Hemoglobin.total in Blood 6.2 HEMOGLOBIN A1c eCW1 ([facility]) ID Date Data Source TSH 08/10/2019 12:00:00 AM EST eCW1 ([facility]) Name Value Range Interpretation Code Description Data Linh rce(s) Supporting Document(s) 1.760 0.358-3.740 THYROID STIMULATING HORM ONE eCW1 ([facility]) ID Date Data Source LIPID PANEL (CARDIAC RISK) 08/10/2019 12:00:00 AM EST eCW1 ( [facility]) Name Value Range Interpretation Code Description Data Linh rce(s) Supporting Document(s) Triglyceride [Mass/volume] in Serum or Plasma by calculation 46 <150 TRIGLYCERIDES LEVEL eCW1 ([facility]) TRIGLYCERIDES LEVEL Cholesterol in LDL [Mass/volume] in Serum or Plasma by calculation 78 <100 LDL CHOLESTEROL eCW1 ([facility]) LDL CHOLESTEROL Cholesterol [Moles/volume] in Serum or Plasma 226 <200 CHOLESTEROL LEVEL eCW1 ([facility]) CHOLESTEROL LEVEL Cholesterol in HDL [Moles/volume] in Serum or Plasma 139 >40 HDL CHOLESTEROL eCW1 ([facility]) HDL CHOLESTEROL 1.625 <5 CHOLESTEROL RISK RATIO eCW1 ([facility]) CHOLESTEROL RISK RATIO 87 NON-HDL-C eCW1 ([facility]) NON-HDL-C ID Date Data Source Comprehensive Metabolic Profile (CMP) 08/10/2019 12:00:00 AM EST eCW1 ([facility]) Name Value Range Interpretation Code Description Data Linh rce(s) Supporting Document(s) 11 7-18 BLOOD UREA NITROGEN eCW1 ([facility]) 81 70-100 GLUCOSE, FASTING eCW1 ([facility]) 140 136-145 SODIUM LEVEL eCW1 ([facility]) 1.32 0.70-1.30 CREATININE FOR GFR eCW1 ([facility]) > 60.0 >56 GLOMERULAR FILTRATION RATE eCW 1 ([facility]) 105 98-107 CHLORIDE LEVEL eCW1 ([facility]) 4.4 3.5-5.1 POTASSIUM SERUM eCW1 ([facility]) 32 7-37 AST/SGOT eCW1 ([facility]) 27 21-32 CARBON DIOXIDE LEVEL eCW1 ([facility]) 8.9 8.5-10.1 CALCIUM LEVEL eCW1 ([facility]) 25 12-78 ALT/SGPT eCW1 ([facility]) 74 45-117 ALKALINE PHOSPHATASE eCW1 ([facility]) 0.3 0.2-1.0 BILIRUBIN,TOTAL eCW1 ([facility]) 3.5 3.2-5.2 ALBUMIN eCW1 ([facility]) 7.6 6.4-8.2 TOTAL PROTEIN eCW1 ([facility]) 0.85 1.00-1.93 ALBUMIN/GLOBULIN RATIO eCW1 ([facility]) Procedure Social History Code Duration Value Status Description Data Source(s ) Smoking 07/31/2020 12:00:00 AM EST Unknown if ever smoked comp leted Unknown if ever smoked [facility] ([facility]) Smoking 07/18/2020 12:00:00 AM EST Unknown if ever smoked comp leted Unknown if ever smoked [facility] ([facility]) Smoking 06/26/2020 12:00:00 AM EST Unknown if ever smoked comp leted Unknown if ever smoked [facility] ([facility]) Smoking 06/07/2020 12:00:00 AM EST Unknown if ever smoked comp leted Unknown if ever smoked [facility] ([facility]) Smoking 05/26/2020 12:00:00 AM EDT Unknown if ever smoked comp leted Unknown if ever smoked [facility] ([facility]) Smoking 05/24/2020 12:00:00 AM EDT Unknown if ever smoked comp leted Unknown if ever smoked [facility] ([facility]) Smoking 05/10/2020 12:00:00 AM EDT Unknown if ever smoked comp leted Unknown if ever smoked [facility] ([facility]) Smoking 04/05/2020 12:00:00 AM EDT Unknown if ever smoked comp leted Unknown if ever smoked [facility] ([facility]) Smoking 08/10/2019 12:00:00 AM EST Current Smoker completed Curre nt Smoker eCW1 ([facility]) Smoking 08/10/2019 12:00:00 AM EST Current Smoker completed Curre nt Smoker eCW1 ([facility]) Smoking 08/10/2019 12:00:00 AM EST Current Smoker completed Curre nt Smoker eCW1 ([facility]) Smoking 08/10/2019 12:00:00 AM EST Current Smoker completed Curre nt Smoker eCW1 ([facility]) Smoking 08/10/2019 12:00:00 AM EST Current Smoker completed Curre nt Smoker eCW1 ([facility]) Vital Signs ID Date Data Source UNK Name Value Range Interpretation Code Description Data Source(s) Diastolic blood pressure 0 mm[Hg] Normal (applies to non-numeric results) 0 mm[Hg] [facility] ([facility]) Systolic blood pressure 0 mm[Hg] Normal (applies t o non-numeric results) 0 mm[Hg] [facility]) Body mass index (BMI) [Ratio] 0.00 kg/m2 No rmal (applies to non-numeric results) 0.00 kg/m2 [facility] ([facility]) Body weight Measured 0.00 lbs Normal (applies to n on-numeric results) 0.00 lbs [facility] ([facility]) Body height 0.00 in Normal (applies to non-numeric resu lts) 0.00 in [facility] ([facility]) Diastolic blood pressure 0 mm[Hg] Normal (applies to non-numeric results) 0 mm[Hg] [facility] ([facility]) Systolic blood pressure 0 mm[Hg] Normal (applies t o non-numeric results) 0 mm[Hg] [facility] ([facility]) Body mass index (BMI) [Ratio] 0.00 kg/m2 No rmal (applies to non-numeric results) 0.00 kg/m2 [facility] ([facility]) Body weight Measured 0.00 lbs Normal (applies to n on-numeric results) 0.00 lbs [facility] ([facility]) Body height 0.00 in Normal (applies to non-numeric resu lts) 0.00 in [facility] ([facility]) Body mass index (BMI) [Ratio] 22.9 kg/m2 22.9 k g/m2 [facility] ([facility]) Body weight 155.00 [lb_av] 155.00 [lb_av] MEDEN T ([facility]) Body height 69 [in_i] 69 [in_i] [facility] ([facility]) 5'9" Body temperature 96.3 [degF] 96.3 [degF] [facility] ([facility]) Body weight 142.00 [lb_av] 142.00 [lb_av] MEDEN T ([facility]) Body temperature 100.0 [degF] 100.0 [degF] MEDE NT ([facility]) Respiratory rate 18 /min 18 /min [facility] Heart rate 102 /min 102 /min [facility] ([facility]) Diastolic blood pressure 88 mm[Hg] 88 mm[Hg] [facility] ([facility]) Systolic blood pressure 102 mm[Hg] 102 mm[Hg] M EDENT ([facility]) Diastolic blood pressure 98 mm[Hg] 98 mm[Hg] eCW1 ([facility]) Systolic blood pressure 160 mm[Hg] 160 mm[Hg] e CW1 ([facility]) Body temperature 97.1 [degF] 97.1 [degF] eCW1 ( [facility]) Respiratory rate 18 /min 18 /min eCW1 ([facility]) Heart rate 75 /min 75 /min eCW1 ([facility]) Body mass index (BMI) [Ratio] 23.24 kg/m2 23.24 kg/m2 eCW1 ([facility]) Body height 68.25 [in_us] 68.25 [in_us] eCW1 ([facility]) Body weight Measured 154 [lb_av] 154 [lb_av] eC W1 ([facility])
--- OUTSIDE RECORDS SUMMARY | 2020-08-09 20:03 | CCD ---
Author Author [facility] Organization [facility] Address Unknown Phone Unavailable Care Team Providers Care Outside Cutter Name Role Phone RENO BABCOCK PA Unavailable [...] J Lilianalene MD Unavailable Unavailable Nita, J Liilanalene MD Unavailable Unavailable Nita, J Marylene MD [...] is protected by Article 27-F of the [facility] Public Health law. If you continue you may have access to information: Regarding HIV / AIDS; Provided by facilities licensed or operated by the [facility] Office of Mental Health; or Provided by the [facility] Office for People With Developmental Disabilities. If such information is present, then the following [facility] mandated warning applies: This information has been [...] law may result in a fine or group home sentence or both. A general authorization for the release of medical or other information is NOT sufficient authorization for further disc losure. Allergies and Adverse Reactions Type Description Substance Reaction Status Data Source(s ) Drug allergy TraZODone HCl Trazodone paiful erection Active eCW 1 ([facility]) Bananas Bananas Bananas Hives, vomitting Active eCW1 ([facility]) Encounters Encounter Providers Location Date Indications Data Source(s ) Extended Individual Psychotherapy - 45 min Attender: Skyla Gold [facility] 07/31/2020 10:45:00 AM EST - 07/31/2020 10:45:00 AM EST [facility] ([facility]) Attender: Phan Lantigua 07/31/2020 12:00:[address] [facility] ([facility]) Outpatient Attender: Leif Ames NP [facility] 07/18/2020 04:00:00 AM EST - 07/18/2020 04:00:00 AM EST [facility] ([facility]) Attender: Leif Ames NP 07/18/2020 12:00:00 AM EST [facility] ([facility]) [place] [address] [facility] [place] [address] 06/30/2020 12:00:00 AM EST eCW1 ([facility]) Unknown [address] [facility] [address] 06/28/2020 12:00:00 AM EST eCW1 ([facility]) Extended Individual Psychotherapy - 45 min Attender: Skyla Gold [facility] 06/26/2020 11:00:00 AM EST - 06/26/2020 11:00:00 AM EST [facility] ([facility]) Attender: Phan Lantigua 06/26/2020 12:00:[address] [facility] ([facility]) [place] [address] [facility] [address] 06/13/2020 12:00:00 AM EST eCW1 ([facility]) Outpatient Attender: RENO JACOB Physical [facility] 06/09/2020 12:30:00 PM EST [facility] ([facility]) Outpatient Attender: Leif Ames NP [facility] 06/07/2020 11:00:00 AM EST - 06/07/2020 11:00:00 AM EST [facility] ([facility]) Extended Individual Psychotherapy - 45 min Attender: Skyla Gold [facility] 06/07/2020 03:00:00 AM EST - 06/07/2020 03:00:00 AM EST [facility] ([facility]) Attender: Leif Ames NP 06/07/2020 12:00:00 AM EST [facility] ([facility]) Attender: Phan Lantigua 06/07/2020 12:00:[address] [facility] ([facility]) Extended Individual Psychotherapy - 45 min Attender: Skyla Gold [facility] 05/26/2020 12:00:00 PM EDT - 05/26/2020 12:00:00 PM EDT [facility] ([facility]) Attender: Phan Lantigua 05/26/2020 12:00:00 AM E DT [facility] ([facility]) Telemed Diagnostic Eval Attender: Leif Ames NP [facility] 05/24/2020 11:00:00 AM EDT - 05/24/2020 11:00:00 AM EDT [facility] ([facility]) Attender: Leif Ames NP 05/24/2020 12:00:00 AM EDT [facility] ([facility]) Unknown [address] [facility] [address] 05/16/2020 12:00:00 AM EDT eCW1 ([facility]) Extended Individual Psychotherapy - 45 min Attender: Skyla Gold [facility] 05/10/2020 04:00:00 AM EDT - 05/10/2020 04:00:00 AM EDT [facility] ([facility]) Attender: Phan Lantigua 05/10/2020 12:00:00 AM E DT [facility] ([facility]) Extended Individual Psychotherapy - 45 min Attender: Andrez Crump [facility] 04/05/2020 11:00:00 AM EDT - 04/05/2020 11:00:00 AM EDT [facility] ([facility]) Attender: Shannon Crump 04/05/2020 12:00:00 AM EDT [facility] ([facility]) Office Visit Attender: RENO JACOB Physical Therapy 03/30/2020 01:00:00 PM EDT [facility] ([facility]) Outpatient Referrer: Ban Moya MD 01/20/2020 05:30:00 AM EDT [facility] [address] [address] 01/05/2020 12:00:00 AM EDT [email or web address] Outpatient Referrer: Ban Moya MD 12/15/2019 05:21:00 AM EDT [facility] [address] [address] 11/16/2019 12:00:00 AM EDT eCW1 ([email or web address] [address] [place] [address] 10/08/2019 12:00:00 AM EDT eCW1 ([email or web address] [address] [place] [address], [place] [address] 09/27/2019 12:00:00 AM EST eCW1 ([email or web address] [address] [address] 09/27/2019 12:00:00 AM EST eCW1 ([email or web address] [address] [place] [address] 09/08/2019 12:00:00 AM EST eCW1 ([facility]) [facility] [address] [facility] [address] 08/13/2019 12:00:00 AM EST eCW1 ([facility]) [facility] [address] [facility] [address] 08/10/2019 12:00:00 AM EST eCW1 ([facility]) [facility] [address] [place] [address], [place] [address] 08/10/2019 12:00:00 AM EST eCW1 ([facility]) [facility] [address] [facility] [address] 07/01/2019 12:00:00 AM EST eCW1 ([facility]) [facility] [address] [facility] [address] 06/18/2019 12:00:00 AM EST eCW1 ([facility]) Functional Status Immunizations Vaccine Date Status Description Data Source(s) influenza, recombinant, quadrIvalent,injectable, prese rvative free 08/10/2019 07:31:00 AM EST completed eCW1 ([facility]) influenza, recombinant, quadrIvalent,injectable, prese rvative free 08/10/2019 07:31:00 AM EST completed eCW1 ([facility]) influenza, recombinant, quadrIvalent,injectable, prese rvative free 08/10/2019 07:31:00 AM EST completed eCW1 ([facility]) influenza, recombinant, quadrIvalent,injectable, prese rvative free 08/10/2019 07:31:00 AM EST completed eCW1 ([facility]) influenza, recombinant, quadrIvalent,injectable, prese rvative free 08/10/2019 07:31:00 AM EST completed eCW1 ([facility]) influenza, recombinant, quadrIvalent,injectable, prese rvative free 08/10/2019 07:31:00 AM EST completed eCW1 ([facility]) pneumococcal polysaccharide PPV23 08/10/2019 07:30:00 AM EST comple sushant eCW1 ([facility]) pneumococcal polysaccharide PPV23 08/10/2019 07:30:00 AM EST comple sushant eCW1 ([facility]) pneumococcal polysaccharide PPV23 08/10/2019 07:30:00 AM EST comple sushant eCW1 ([facility]) pneumococcal polysaccharide PPV23 08/10/2019 07:30:00 AM EST comple sushant eCW1 ([facility]) pneumococcal polysaccharide PPV23 08/10/2019 07:30:00 AM EST comple sushant eCW1 ([facility]) pneumococcal polysaccharide PPV23 08/10/2019 07:30:00 AM EST comple sushant eCW1 ([facility]) Medications Medication Brand Name Start Date Product Form Dose Route Admi nistrative Instructions Pharmacy Instructions Status Indications Reaction Description Data Source(s) Prazosin 1 MG Oral Capsule prazosin 05/04/2019 12:00:00 AM EDT 1 mg completed [id number] prazosin 05/04/2019 05/24/2020 30 1 mg capsule 25814 [id number] Bradford Landrum [id number] Psychiatric[facility]Mental Health [facility] ([facility]) 12 HR Bupropion Hydrochloride 150 MG Extended Release Oral T ablet bupropion HCl 02/09/2019 12:00:00 AM EDT 150 mg by mouth completed [id number] bupropion HCl by mouth [id number] 02/09/2019 09/07/2019 twice a day 30 150 mg table t sustained-release 12 hr with meals [id number] Bradford Davis [id number] Psychiatric/Mental Health [facility] ([facility]) quetiapine 400 MG Oral Tablet quetiapine 02/09/2019 12:00:00 AM EDT 400 mg completed [id number] quetiapine 02/09/2019 09/07/2019 at bedtime 30 400 mg tablet 04423 [id number] Bradford Landrum [id number] Psychiatric/Mental Health [facility] ([facility]) Trazodone Hydrochloride 100 MG Oral Tablet trazodone 09/01 12:00:00 AM EST 100 mg completed [id number] trazodone 201805/24/2020 at bedtime 100 mg tablet 21586 [id number] Bradford Rojas [id number] Psychiatric/Mental Health [facility] ([facility]) Insurance Providers Payer name Policy type / Coverage type Policy ID Covered alliance party ID Covered alliance party's relationship to hendricks Policy Hendricks Plan Information RAGHU [id number] SP [id number] RAGHU [facility] O [id number] S [id number] SP [id number] MEDICAID [id number] SP [id number] ANSI-Medicaid [id number] ANSI-Commercial [id number] ANSI-Medicaid [id number] ANSI-Medicaid [id number] ANSI-Commercial [id number] ANSI-Medicaid [id number] ANSI-Medicaid [id number] ANSI-Medicaid [id number] ANSI-Commercial [id number] RAGHU [id number] SP [id number] SELF PAY RAGHU [id number] SP [id number] SELF PAY RAGHU [id number] SP [id number] SELF PAY RAGHU [id number] SP [id number] SELF PAY RAGHU [id number] SP [id number] SELF PAY RAGHU [id number] SP [id number] SELF PAY RAGHU unk SP unk [facility]-Medicaid [id number] [facility]-Medicaid [id number] ANSI-Commercial [id number] ANSI-Commercial [id number] ANSI-Medicaid [id number] [facility] [id number] ANSI-Commercial [id number] ANSI-Medicaid [id number] ANSI-Medicaid [id number] ANSI-Medicaid [id number] ANSI-Commercial [id number] ANSI-Medicaid [id number] ANSI-Commercial [id number] ANSI-Medicaid [id number] ANSI-Medicaid [id number] ANSI-Medicaid [id number] ANSI-Commercial [id number] ANSI-Medicaid [id number] [facility] [id number] ANSI-Medicaid [id number] ANSI-Commercial [id number] [facility] [id number] ANSI-Commercial [id number] [facility] [id number] [facility] [id number] ANSI-Commercial [id number] ANSI-Medicaid [id number] ANSI-Commercial -[id number] ANSI-Medicaid [id number] ANSI-Medicaid [id number] [facility] [employer] SPECIALIST DEPT [id number] SP [id number] MEDICAID M [id number] [facility] O [id number] S [id number] ANSI-Medicaid [id number] ANSI-Medicaid [id number] ANSI-Medicaid [id number] ANSI-Medicaid [id number] ANSI-Medicaid [id number] ANSI-Medicaid [id number] ANSI-Medicaid [id number] ANSI-Medicaid [id number] MEDICAID (101) [id number] SELF PAY ONLY SP MEDICAID [id number] Patient [id number] [facility]-Medicaid [id number] [facility]-Medicaid [id number] [facility] [id number] [facility]-Medicaid [id number] [facility]-Medicaid [id number] [facility]-Medicaid [id number] SELF PAY SELF PAY Patient SELF PAY [employer] MEDICARE PPO [id number] Patient [id number] [facility]-Medicaid [id number] [facility] [id number] [employer] MEDICARE PPO [id number] Patient [id number] [employer] MEDICARE PPO [id number] Patient [id number] [employer] MCDHMO [id number] SP [id number] UNHC COMMUNITY PLAN MCDHMO [id number] SP [id number] [facility] [id number] SP [id number] UNHC COMMUNITY PLAN MCDHMO [id number] SP [id number] MEDICAID [id number] SP [id number] [facility]) O [id number] S [id number] MEDICAID [id number] SP [id number] MEDICAID [id number] SP [id number] MEDICAID M [id number] S [id number] POMCO [id number] SP [id number] UNHC COMMUNITY PLAN MCDHMO [id number] SP [id number] MEDICAID [id number] SP [id number] HMO BLUE [id number] SP [id number] BLUE CROSS CANALES PLAN [id number] SP [id number] UNHC COMMUNITY PLAN MCDO [id number] SP [id number] [employer]BS P [id number] S [id number] SELF PAY [id number] SP [id number] Problems, Conditions, and Diagnoses Code Display Name Description Problem Type Effective Dates Data Source(s) 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 Moderate: Cocaine Condition 07/31/2020 12:00:00 AM EST [facility] ([facility]) F17.200 Nicotine dependence, unspecified, uncomp licated Tobacco Use Disorder, Severe Condition 07/31/2020 12:00:00 AM EST [facility] ([facility]) F25.0 Schizoaffective disorder, bipolar type S chizoaffective Disorder, Bipolar type Condition 07/31/2020 12:00:00 AM EST [facility] ([facility]) F10.20 Alcohol dependence, uncomplicated Alcohol Use Di sorder, Moderate Condition 07/31/2020 12:00:00 AM EST [facility] ([facility]) F43.23 Adjustment disorder with mixed anxiety a nd depressed mood Adjustment Disorder, With mixed anxiety and depressed mood Condition 2020 12:00:00 AM EST [facility] ([facility]) N48.30 [id number] Priapism Problem 08/10/2019 12:00:00 AM ES T eCW1 ([facility]) N48.30 [id number] Priapism Problem 08/10/2019 12:00:00 AM ES T eCW1 ([facility]) Surgeries/Procedures Procedure Description Date Indications Data Source(s) Extended Individual Psychotherapy - 45 min 07/31/2020 12:00:00 AM EST - 07/31/2020 12:00:00 AM EST [facility] ([facility]) Extended Individual Psychotherapy - 45 min 12:00:00 AM EST [facility] ([facility]) MHC Telemed E/M Lvl 3--Est pt 07/18/2020 12:00:00 AM EST - 07/18/2020 12:00:00 AM EST [facility] ([facility]) Telemed A/O 30" 07/18/2020 12:00:00 AM EST [facility] ([facility]) MHC Telemed E/M Lvl 3--Est pt 07/18/2020 12:00:[address] [facility] ([facility]) Extended Individual Psychotherapy - 45 min 06/26/2020 12:00:00 AM EST - 06/26/2020 12:00:00 AM EST [facility] ([facility]) Extended Individual Psychotherapy - 45 min 0 12:00:00 AM EST [facility] ([facility]) RADEX SHOULDER COMPLETE MINIMUM 2 VIEWS 06/09/2020 12: 00:00 AM EST [facility] ([facility] ) RADEX SHOULDER COMPLETE MINIMUM 2 VIEWS 06/09/2020 12: 00:00 AM EST [facility] ([facility]) MHC Telemed E/M Lvl 3--Est pt 06/07/2020 12:00:00 AM EST - 06/07/2020 12:00:00 AM EST [facility] ([facility]) MHC Telemed E/M Lvl 3--Est pt 06/07/2020 12:00:[address] [facility] ([facility]) Extended Individual Psychotherapy - 45 min 06/07/2020 12:00:00 AM EST - 06/07/2020 12:00:00 AM EST [facility] ([facility]) Extended Individual Psychotherapy - 45 min 0 12:00:00 AM EST [facility] ([facility]) Extended Individual Psychotherapy - 45 min 05/26/2020 12:00:00 AM EDT - 05/26/2020 12:00:00 AM EDT [facility] ([facility]) Extended Individual Psychotherapy - 45 min 0 12:00:00 AM EDT [facility] ([facility]) Telemed Diagnostic Eval 05/24/2020 12:00 :00 AM EDT - 05/24/2020 12:00:00 AM EDT [facility] ([facility]) Telemed Diagnostic Eval 05/24/2020 12:00:00 AM EDT [facility] ([facility]) Extended Individual Psychotherapy - 45 min 05/10/2020 12:00:00 AM EDT - 05/10/2020 12:00:00 AM EDT [facility] ([facility]) Extended Individual Psychotherapy - 45 min 0 12:00:00 AM EDT [facility] ([facility]) Extended Individual Psychotherapy - 45 min 04/05/2020 12:00:00 AM EDT - 04/05/2020 12:00:00 AM EDT [facility] ([facility]) Extended Individual Psychotherapy - 45 min 0 12:00:00 AM EDT [facility] ([facility]) X-Ray Spine Lumbosacral Complete Inc Bending Views Min Of 6 03/30/2020 12:00:00 AM EDT [facility] ([facility] ) X-Ray Hip Unilateral With Pelvis 2-3 Views 03/30/2020 12:00:00 AM EDT [facility] ([facility] ) RADIOLOGIC EXAM KNEE COMPLETE 4/MORE VIEWS 03/30/2020 12:00:00 AM EDT [facility] ([facility] ) Pneumococcal Adult 0.5mL (Pneumovax 23) 08/10/2019 12: 00:00 AM EST eCW1 ([facility]) IMMUNIZATION ADMIN 08/10/2019 12:00:00 AM EST eCW1 (Formerly [facility]) RIV4 VACC RECOMBINANT DNA IM 08/10/2019 12:00:00 AM ES T eCW1 (Formerly [facility]) IMMUNIZATION ADMIN EACH ADD 08/10/2019 12:00:00 AM EST eCW1 (Formerly [facility]) Results ID Date Data Source [id number] 03/16/2020 11:06:00 AM EDT [facility] Name Value Range Interpretation Code Description Data Linh rce(s) Supporting Document(s) Absolute CD 4 [place] 779 /uL [phone] [facility] % CD 4 [...] 0.0-0.1 [facility] ID Date Data Source [id number] 03/18/2020 10:06:00 AM EDT [facility] Name Value Range Interpretation Code Description Data Linh rce(s) Supporting Document(s) HIV-1 RNA by PCR <20 copies/mL [facility] HIV-1 RNA not detected Th e reportable range for this assay is 20 to 10,000,000copies HIV-1 RNA/mL. log10 HIV-1 RNA [facility] Unable to calculate result since non-num fer result obtained forcomponent test. ID Date Data Source HIV-1 RNA PCR QUANT [id number] 08/10/2019 12:00:00 AM EST eCW1 (Formerly [facility]) Name Value Range Interpretation Code Description Data Linh rce(s) Supporting Document(s) HIV 1 RNA [Units/volume] (viral load) in Serum or Plasma by Probe with amplification <20 . HIV-1 RNA PCR QUANT 2 [id number] eCW1 ([facility]) HIV-1 RNA PCR QUANT 2 [id number] ID Date Data Source CD4/CD8 RATIO PROFILE [id number] 08/10/2019 12:00:00 AM EST eC W1 (Formerly [facility]) Name Value Range Interpretation Code Description Data Linh rce(s) Supporting Document(s) [phone] Abs CD8 Suppres eCW1 ([facility]) Abs CD8 Suppres Deprecated CD4 in Blood [phone] Abs CD4 Help er eCW1 ([facility]) Abs CD4 [place] 51.9 30.8-58.5 %CD4 Pos Lymphs eCW1 ([facility]) %CD4 Pos Lymphs 28.5 12.0-35.5 % CD8 Pos Lymph eCW1 ([facility]) % CD8 Pos Lymph 3.90 4.14-5.80 RBC eCW1 ([facility]) RBC 1.82 0.92-3.72 CD4/CD8 Ratio eCW1 ([facility]) CD4/CD8 Ratio 4.3 3.4-10.8 WBC eCW1 ([facility]) WBC 93 79-97 MCV eCW1 ([facility]) MCV 36.4 37.5-51.0 HCT eCW1 ([facility]) HCT 12.2 13.0-17.7 HGB eCW1 ([facility]) HGB 13.7 11.6-15.4 RDW eCW1 ([facility]) RDW 33.5 31.5-35.7 MCHC eCW1 ([facility]) MCHC 31.3 26.6-33.0 MCH eCW1 ([facility]) MCH 201 150-450 Platelets eCW1 ([facility]) Platelets 35 Not Estab. Lymphocytes eCW1 ([facility]) Lymphocytes 46 Not Estab. Neutrophils eCW1 ([facility]) Neutrophils 16 Not Estab. Monocytes eCW1 ([facility]) Monocytes 1 Not Estab. Basophils eCW1 ([facility]) Basophils 2 Not Estab. Eosinophils eCW1 ([facility]) Eosinophils 1.5 0.7-3.1 ABS Lymphs eCW1 ([facility]) ABS Lymphs 2.0 1.4-7.0 ABS Neutophils eCW1 ([facility]) ABS Neutophils 0.7 0.1-0.9 ABS Monocytes eCW1 ([facility]) ABS Monocytes 0.0 0.0-0.2 ABS Basophils eCW1 ([facility]) ABS Basophils 0.1 0.0-0.4 ABS Eosinophils eCW1 ([facility]) ABS Eosinophils ID Date Data Source SYPHILIS ANTIBODY (RPR SCREEN) 08/10/2019 12:00:00 AM EST eC W1 ([facility]) Name Value Range Interpretation Code Description Data Linh rce(s) Supporting Document(s) NONREACTIVE NONREACTIVE SYPHILIS eCW1 ([facility]) SYPHILIS ID Date Data Source [id number] 08/10/2019 12:00:00 AM EST eCW1 ([facility]) Name Value Range Interpretation Code Description Data Linh rce(s) Supporting Document(s) Hemoglobin A1c/Hemoglobin.total in Blood 6.2 HEMOGLOBIN A1c eCW1 ([facility]) ID Date Data Source TSH 08/10/2019 12:00:00 AM EST eCW1 ([facility]) Name Value Range Interpretation Code Description Data Linh rce(s) Supporting Document(s) 1.760 0.358-3.740 THYROID STIMULATING HORM ONE eCW1 ([facility]) ID Date Data Source LIPID PANEL (CARDIAC RISK) 08/10/2019 12:00:00 AM EST eCW1 ( [facility]) Name Value Range Interpretation Code Description Data Linh rce(s) Supporting Document(s) Triglyceride [Mass/volume] in Serum or Plasma by calculation 46 <150 TRIGLYCERIDES LEVEL eCW1 ([facility]) TRIGLYCERIDES LEVEL Cholesterol in LDL [Mass/volume] in Serum or Plasma by calculation 78 <100 LDL CHOLESTEROL eCW1 ([facility]) LDL CHOLESTEROL Cholesterol [Moles/volume] in Serum or Plasma 226 <200 CHOLESTEROL LEVEL eCW1 ([facility]) CHOLESTEROL LEVEL Cholesterol in HDL [Moles/volume] in Serum or Plasma 139 >40 HDL CHOLESTEROL eCW1 ([facility]) HDL CHOLESTEROL 1.625 <5 CHOLESTEROL RISK RATIO eCW1 ([facility]) CHOLESTEROL RISK RATIO 87 NON-HDL-C eCW1 ([facility]) NON-HDL-C ID Date Data Source Comprehensive Metabolic Profile (CMP) 08/10/2019 12:00:00 AM EST eCW1 ([facility]) Name Value Range Interpretation Code Description Data Linh rce(s) Supporting Document(s) 11 7-18 BLOOD UREA NITROGEN eCW1 ([facility]) 81 70-100 GLUCOSE, FASTING eCW1 ([facility]) 140 136-145 SODIUM LEVEL eCW1 ([facility]) 1.32 0.70-1.30 CREATININE FOR GFR eCW1 ([facility]) > 60.0 >56 GLOMERULAR FILTRATION RATE eCW 1 ([facility]) 105 98-107 CHLORIDE LEVEL eCW1 ([facility]) 4.4 3.5-5.1 POTASSIUM SERUM eCW1 ([facility]) 32 7-37 AST/SGOT eCW1 ([facility]) 27 21-32 CARBON DIOXIDE LEVEL eCW1 ([facility] hospital) 8.9 8.5-10.1 CALCIUM LEVEL eCW1 ([facility]) 25 12-78 ALT/SGPT eCW1 ([facility]) 74 45-117 ALKALINE PHOSPHATASE eCW1 (Critical access hospital) 0.3 0.2-1.0 BILIRUBIN,TOTAL eCW1 ([facility]) 3.5 3.2-5.2 ALBUMIN eCW1 ([facility]) 7.6 6.4-8.2 TOTAL PROTEIN eCW1 ([facility]) 0.85 1.00-1.93 ALBUMIN/GLOBULIN RATIO eCW1 ([facility]) Procedure Social History Code Duration Value Status Description Data Source(s ) Smoking 07/31/2020 12:00:00 AM EST Unknown if ever smoked comp leted Unknown if ever smoked [facility] ([facility]) Smoking 07/18/2020 12:00:00 AM EST Unknown if ever smoked comp leted Unknown if ever smoked [facility] ([facility]) Smoking 06/26/2020 12:00:00 AM EST Unknown if ever smoked comp leted Unknown if ever smoked [facility] ([facility]) Smoking 06/07/2020 12:00:00 AM EST Unknown if ever smoked comp leted Unknown if ever smoked [facility] ([facility]) Smoking 05/26/2020 12:00:00 AM EDT Unknown if ever smoked comp leted Unknown if ever smoked [facility] ([facility]) Smoking 05/24/2020 12:00:00 AM EDT Unknown if ever smoked comp leted Unknown if ever smoked [facility] ([facility]) Smoking 05/10/2020 12:00:00 AM EDT Unknown if ever smoked comp leted Unknown if ever smoked [facility] ([facility]) Smoking 04/05/2020 12:00:00 AM EDT Unknown if ever smoked comp leted Unknown if ever smoked [facility] ([facility]) Smoking 08/10/2019 12:00:00 AM EST Current Smoker completed Curre nt Smoker eCW1 ([facility]) Smoking 08/10/2019 12:00:00 AM EST Current Smoker completed Curre nt Smoker eCW1 ([facility]) Smoking 08/10/2019 12:00:00 AM EST Current Smoker completed Curre nt Smoker eCW1 ([facility]) Smoking 08/10/2019 12:00:00 AM EST Current Smoker completed Curre nt Smoker eCW1 ([facility]) Smoking 08/10/2019 12:00:00 AM EST Current Smoker completed Curre nt Smoker eCW1 ([facility]) Vital Signs ID Date Data Source UNK Name Value Range Interpretation Code Description Data Source(s) Diastolic blood pressure 0 mm[Hg] Normal (applies to non-numeric results) 0 mm[Hg] [facility] ([facility]) Systolic blood pressure 0 mm[Hg] Normal (applies t o non-numeric results) 0 mm[facility]Hg[facility] Body mass index (BMI) [Ratio] 0.00 kg/m2 No rmal (applies to non-numeric results) 0.00 kg/m2 [facility] ([facility]) Body weight Measured 0.00 lbs Normal (applies to n on-numeric results) 0.00 lbs [facility] ([facility]) Body height 0.00 in Normal (applies to non-numeric resu lts) [facility] [facility] Diastolic blood pressure 0 mm[Hg] Normal (applies to non-numeric results) 0 mm[Hg] [facility] ([facility]) Systolic blood pressure 0 mm[Hg] Normal (applies t o non-numeric results) 0 mm[Hg] [facility] Body mass index (BMI) [Ratio] 0.00 kg/m2 No rmal (applies to non-numeric results) 0.00 kg/m2 [facility] ([facility]) Body weight Measured 0.00 lbs Normal (applies to n on-numeric results) 0.[address] [facility]) Body height 0.00 in Normal (applies to non-numeric resu lts) 0.00 in [facility] ([facility]) Body mass index (BMI) [Ratio] 22.9 kg/m2 22.9 k g/m2 [facility] ([facility]) Body weight 155.00 [lb_av] 155.00 [lb_av] MEDEN T ([facility]) Body height 69 [in_i] 69 [in_i] [facility] ([facility]) 5'9" Body temperature 96.3 [degF] 96.3 [degF] [facility] ([facility]) Body weight 142.00 [lb_av] 142.00 [lb_av] [facility] T ([facility]) Body temperature 100.0 [degF] 100.0 [degF] MEDE NT ([facility]) [facility] 18 /min 18 /[facility] Heart rate 102 /min 102 /min [facility] ([facility]) Diastolic blood pressure 88 mm[Hg] 88 mm[Hg] [facility] ([facility]) Systolic blood pressure 102 mm[Hg] 102 mm[Hg] M EDENT ([facility]) Diastolic blood pressure 98 mm[Hg] 98 mm[Hg] eCW1 ([facility]) Systolic blood pressure 160 mm[Hg] 160 mm[Hg] e CW1 ([facility]) Body temperature 97.1 [degF] 97.1 [degF] eCW1 ( [facility]) Respiratory rate 18 /min 18 /min eCW1 ([facility]) Heart rate 75 /min 75 /min eCW1 ([facility]) Body mass index (BMI) [Ratio] 23.24 kg/m2 23.24 kg/m2 eCW1 ([facility]) Body height 68.25 [in_us] 68.25 [in_us] eCW1 ([facility]) Body weight Measured 154 [lb_av] 154 [lb_av] eC W1 ([facility])
[2020-08-09 20:08] LABS: BASO % 0.6 % (0.0-1.0); EOS # 0.1 10^3/uL (0.0-0.5); EOS % 1.4 % (0.0-3.0); HEMATOCRIT 41.3 % (42.0-52.0); HEMOGLOBIN 13.6 g/dl (13.5-17.5); LYMPH # 1.3 10^3/uL (1.5-5.0); LYMPH % 24.8 % (24.0-44.0); MEAN CORPUSCULAR HEMOGLOBIN 32.5 pg (27.0-33.0); MEAN CORPUSCULAR HGB CONC 32.9 g/dl (32.0-36.5); MEAN CORPUSCULAR VOLUME 98.8 fl (80.0-96.0); MONO # 0.7 10^3/uL (0.0-0.8); NEUTROPHILS # 3.1 10^3/uL (1.5-8.5); PLATELET COUNT, AUTOMATED 213 10^3/uL (150-450); RED BLOOD COUNT 4.18 10^6/uL (4.30-6.10); WHITE BLOOD COUNT 5.2 10^3/uL (4.0-10.0)
[2020-08-09] MEDS ORDERED: ONDANSETRON 4MG/2ML VIAL IV ONE (20:30)
[2020-08-09] MEDS ORDERED: PANTOPRAZOLE 40MG VIAL (C9113 PER 1) IV ONE (20:30)
[2020-08-09] MEDS ORDERED: NS 1,000 ML IV ONE (20:30)
[2020-08-09] MEDS ORDERED: KETOROLAC 30 MG/ML 1ML VIAL IV ONE (20:30)
[2020-08-09 20:34] LABS: ALBUMIN 3.6 GM/DL (3.2-5.2); ALT/SGPT 27 U/L (12-78); BILIRUBIN,DIRECT 0.2 MG/DL (0.0-0.2); BILIRUBIN,TOTAL 0.5 MG/DL (0.2-1.0); BLOOD UREA NITROGEN 11 MG/DL (7-18); CARBON DIOXIDE LEVEL 27 MEQ/L (21-32); CHLORIDE LEVEL 106 MEQ/L (98-107); CREATININE FOR GFR 1.46 MG/DL (0.70-1.30); GLOMERULAR FILTRATION RATE > 60.0 (>56); GLUCOSE, FASTING 129 MG/DL (70-100); LIPASE 42 U/L (73-393); SODIUM LEVEL 139 MEQ/L (136-145); TOTAL PROTEIN 7.7 GM/DL (6.4-8.2)
--- NOTE | 2020-08-09 21:35 | REPVR ---
PROCEDURE INFORMATION: Exam: XR Complete Acute Abdomen Series Exam date and time: 08/09/2020 8:34 PM Age: 54 years old Clinical indication: Other: Abd pain; Additional info: Abdominal pain TECHNIQUE: Imaging protocol: XR complete acute abdomen series, including 2 or more views of the abdomen and a single view chest. COMPARISON: CT ANGIO CHEST 12/02/2019 5:08 AM FINDINGS: Gastrointestinal tract: Normal. No bowel dilation. Intraperitoneal space: Normal. Bones/joints: Normal. No acute fracture. Soft tissues: Normal. IMPRESSION: No acute findings. Electronically signed by: Ronaldo Gallagher On 08/09/2020 21:35:07 PM
[2020-08-09 22:59] VITALS: BP 169/101
== END 2020-08-09 23:01 | disposition home or self-care (01) ==
LOC: M ED 18:11
DX: R11.10 Vomiting, unspecified (principal); E11.9 Type 2 diabetes mellitus without complications; E78.5 Hyperlipidemia, unspecified; I10 Essential (primary) hypertension; Z91.018 Allergy to other foods
CPT/HCPCS: 74021; 80048; 80076; 83690; 85025; 87486; 87581; 87633; 87798; 96361; 96374; 96375; 99284; C9113; J1885; J2405

== ENCOUNTER 2020-08-16 16:03 | Emergency (ER) | payer OTHER ==
[~2020-08-16] VITALS: Ht 175.3 cm; Wt 72.7 kg
[~2020-08-16 16:03] MED LIST changes: -QUET1TAB10 PO; +QUET300T2 PO
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
[2020-08-16] MEDS ORDERED: KETOROLAC TROMETHAMINE 10 MG TAB PO ONE (17:15)
--- OUTSIDE RECORDS SUMMARY | 2020-08-16 17:44 | CCD ---
Author Author [facility] Organization [facility] Address Unknown Phone Unavailable Care Team Providers Care Client Relationship Consultant Name Role Phone Ban Moya Unavailable PROBLEMS Type Condition ICD9-CM Code [id number] Code Onset Dates Condition S tatus SNOMED Code Notes Problem Esophageal reflux K21.9 Active 811292380 Problem Human immunodeficiency virus (HIV) disease B20 Active 23917675 Problem Chronic obstructive pulmonary disease, unspecified COPD ty pe J44.9 Active 10028146 Problem Bipolar affective disorder, currently depressed, moderate F31.32 Active 193643913 Problem Right upper quadrant abdominal pain R10.11 Acti ve 627534083 Problem Alcohol-induced chronic pancreatitis K86.0 Act kelley 462471750 Problem Gastroesophageal reflux disease, esophagitis pre sence not specified K21.9 Active 335182323 Problem Essential hypertension I10 Active 17968268 Problem Smoking F17.200 Active 18165757 Problem Left hip pain M25.552 Active 35828031 Problem Other chronic pain G89.29 Active 51280463 Problem Lumbago with sciatica, left side M54.42 Active 078856210 Problem Poor dentition K08.9 Active 430749414 Problem Erectile dysfunction, unspecified erectile dysfunction typ e N52.9 Active 428777813 Problem Superficial thrombophlebitis of left upper extremity I80.8 Active [id number] Problem Pure hypercholesterolemia E78.0 Active 950027 004 Problem Priapism N48.30 Active 721481040 Problem Slow transit constipation K59.01 Active 071186 07 Problem Asthma J45.909 Active 116081222 Problem Dental caries K02.9 Active 33308807 Problem Pure hypercholesterolemia E78.00 Active 330492 09 Problem Acute pain of right knee M25.561 Active 4092889 3 Problem care home current use of insulin Z79.4 Active 015374209 Problem Type 2 diabetes mellitus without complications E11 .9 Active 79213371 ALLERGIES Allergen (clinical drug ingredient) Drug/Non Drug Allergy do cumented on EMR Reaction Allergy Type Onset Date Status trazodone TraZODone HCl([facility] Code:[address]-16) paiful erection Drug Allergy Active Bananas Hives, vomitting Non Drug Allergy Ac tive ENCOUNTERS from 1965 to 2020-08-11 Encounter Location Date Provider Diagnosis [address] [id number] 14 Jul, 2020 Ban Moya IMMUNIZATIONS Vaccine Route Administration [...] Start Da te End Date Status Pen [place] 3/16" 31G X 5 MM 6 times [...] every 4 hrs for 30 day(s) Active [employer] Ultra 2 w/Device 1 glucometer ICD: 5 [...] Information RESULTS No Results REASON FOR VISIT ER Visit [facility] 08/09; Nausea, Weak, SOB MEDICAL (GENERAL) HISTORY Type Description Date Medical [...] due to pancreatis, 6 days @ [facility] 11/14 14 Hospitalization History pancreatitis 02/2016 Hospitalization History pancreatitis [...] BY MOUTH ONCE DAILY fo r 30 Next Appt Details Provider Name:Ban Moya, 2020-07-28 8 01:00:00 PM, [address] [place] [address], [phone], Provider Name:Ban Moya, 2020-08-29 2 10:30:00 AM, [address] [place] [address], [phone], Insurance Providers Payer Name Payer Address Payer Phone Insured Name Patient Relati onship to Insured Coverage Start Date Coverage End Date [facility] [employer] CLAIM[employer] DEPT [address] [facility] [phone] [place] self
--- OUTSIDE RECORDS SUMMARY | 2020-08-16 17:44 | CCD ---
Author Author [facility] Organization [facility] Address Unknown Phone Unavailable Care Team Providers Care Extension Service Specialist In Charge Name Role Phone RENO BABCOCK PA Unavailable [...] Unavailable Unavailable Philippe Moya MD Unavailable Unavailable Pihlippe Moya MD Unavailable Unavailable Philippe Moya MD [...] J Lilianalene MD Unavailable Unavailable Nita, J Lilinaalene MD Unavailable Unavailable Nita, J Lilianalene MD Unavailable Unavailable Nita, J Lilianalene MD Unavailable Unavailable Nita, J Marylene MD Unavailable Unavailable Nita, J Marylene MD Unavailable Unavailable Nita, J Lilianalene MD Unavailable Unavailable Niat, J Lilainalene MD Unavailable Unavailable Nita, J Marylene MD [...] is protected by Article 27-F of the [facility] Public Health law. If you continue you may have access to information: Regarding HIV / AIDS; Provided by facilities licensed or operated by the [facility] Office of Mental Health; or Provided by the [facility] Office for People With Developmental Disabilities. If such information is present, then the following [facility] mandated warning applies: This information has been [...] law may result in a fine or intermediate sentence or both. A general authorization for the release of medical or other information is NOT sufficient authorization for further disc losure. Allergies and Adverse Reactions Type Description Substance Reaction Status Data Source(s ) Drug allergy TraZODone HCl Trazodone paiful erection Active eCW 1 ([facility]) Bananas Bananas Bananas Hives, vomitting Active eCW1 ([facility]) Encounters Encounter Providers Location Date Indications Data Source(s ) [place] [address] [address] 08/10/2020 12:00:00 AM EST eCW1 ([facility]) Extended Individual Psychotherapy - 45 min Attender: Skyla Gold [facility] 07/31/2020 10:45:00 AM EST - 07/31/2020 10:45:00 AM EST [facility] ([facility]) Attender: Phan Lantigua 07/31/2020 12:00:[address] [facility] ([facility]) Outpatient Attender: Leif Ames NP [facility] 07/18/2020 04:00:00 AM EST - 07/18/2020 04:00:00 AM EST [facility] ([facility]) Attender: Leif Ames NP 07/18/2020 12:00:00 AM EST [facility] ([facility]) [place] [address] [address] 06/30/2020 12:00:00 AM EST eCW1 ([facility]) [place] [address] [address] 06/28/2020 12:00:00 AM EST eCW1 ([facility]) Extended Individual Psychotherapy - 45 min Attender: Skyla Gold [facility] 06/26/2020 11:00:00 AM EST - 06/26/2020 11:00:00 AM EST [facility] ([facility]) Attender: Phan Lantigua 06/26/2020 12:00:[address] [facility] ([facility]) [place] [address] [address] 06/13/2020 12:00:00 AM EST eCW1 ([facility]) Outpatient Attender: RENO JACOB Physical Therapy 06/09/2020 12:30:00 PM EST [facility] ([facility] ) Outpatient Attender: Leif Ames NP [facility] 06/07/2020 11:00:00 AM EST - 06/07/2020 11:00:00 AM EST [facility] ([facility]) Extended Individual Psychotherapy - 45 min Attender: Skyla Gold [facility] 06/07/2020 03:00:00 AM EST - 06/07/2020 03:00:00 AM EST [facility] ([facility]) Attender: Leif Ames NP 06/07/2020 12:00:00 AM EST [facility] ([facility]) Attender: Phan Lantigua 06/07/2020 12:00:[address] [facility] ([facility]) Extended Individual Psychotherapy - 45 min Attender: Skyla Gold [facility] 05/26/2020 12:00:00 PM EDT - 05/26/2020 12:00:00 PM EDT [facility] ([facility]) Attender: Phan Lantigua 05/26/2020 12:00:00 AM E DT [facility] ([facility]) Telemed Diagnostic Eval Attender: Leif Ames NP [facility] 05/24/2020 11:00:00 AM EDT - 05/24/2020 11:00:00 AM EDT [facility] ([facility]) Attender: Leif Ames NP 05/24/2020 12:00:00 AM EDT [facility] ([facility]) [place] [address] [address] 05/16/2020 12:00:00 AM EDT eCW1 ([facility]) Extended Individual Psychotherapy - 45 min Attender: Skyla Gold [facility] 05/10/2020 04:00:00 AM EDT - 05/10/2020 04:00:00 AM EDT [facility] ([facility]) Attender: Phan Lantigua 05/10/2020 12:00:00 AM E DT [facility] ([facility]) Extended Individual Psychotherapy - 45 min Attender: Andrez Crump [facility] 04/05/2020 11:00:00 AM EDT - 04/05/2020 11:00:00 AM EDT [facility] ([facility]) Attender: Shannon Crump 04/05/2020 12:00:00 AM EDT [facility] ([facility]) Office Visit Attender: RENO JACOB Physical Therapy 03/30/2020 01:00:00 PM EDT [facility] ([facility] ) Outpatient Referrer: Ban Moya MD 01/20/2020 05:30:00 AM EDT [facility] Unknown [address] [address] 01/05/2020 12:00:00 AM EDT eCW1 ([facility]) Outpatient Referrer: Ban Moya MD 12/15/2019 05:21:00 AM EDT [facility] [place] [address] [address] 11/16/2019 12:00:00 AM EDT [facility]CW[facility] [address] [address] 10/08/2019 12:00:00 AM EDT [facility]CW1 [facility] [address] [address] 09/27/2019 12:00:00 AM EST eCW1 ([facility]) [facility] [address] [address] 09/27/2019 12:00:00 AM EST eCW1 ([facility]) [facility] [address] [address] 09/08/2019 12:00:00 AM EST eCW1 ([facility]) [facility] [address] [address] 08/13/2019 12:00:00 AM EST eCW1 ([facility]) [facility] [address] [place] [address], [place] [address] 08/10/2019 12:00:00 AM EST eCW1 ([facility]) [facility] [address] [place] [address] [address] 08/10/2019 12:00:00 AM EST eCW1 ([facility]) [facility] [address] [place] [address] [address] 07/01/2019 12:00:00 AM EST eCW1 ([facility]) [facility] [address] [place] [address] [address] 06/18/2019 12:00:00 AM EST eCW1 ([facility]) Functional Status Immunizations Vaccine Date Status Description Data Source(s) influenza, recombinant, quadrIvalent,injectable, prese rvative free 08/10/2019 07:31:00 AM EST completed eCW1 ([facility]) influenza, recombinant, quadrIvalent,injectable, prese rvative free 08/10/2019 07:31:00 AM EST completed eCW1 ([facility]) influenza, recombinant, quadrIvalent,injectable, prese rvative free 08/10/2019 07:31:00 AM EST completed eCW1 ([facility]) influenza, recombinant, quadrIvalent,injectable, prese rvative free 08/10/2019 07:31:00 AM EST completed eCW1 ([facility]) influenza, recombinant, quadrIvalent,injectable, prese rvative free 08/10/2019 07:31:00 AM EST completed eCW1 ([facility]) influenza, recombinant, quadrIvalent,injectable, prese rvative free 08/10/2019 07:31:00 AM EST completed eCW1 ([facility]) influenza, recombinant, quadrIvalent,injectable, prese rvative free 08/10/2019 07:31:00 AM EST completed eCW1 ([facility]) pneumococcal polysaccharide PPV23 08/10/2019 07:30:00 AM EST comple sushant eCW1 ([facility]) pneumococcal polysaccharide PPV23 08/10/2019 07:30:00 AM EST comple sushant eCW1 ([facility]) pneumococcal polysaccharide PPV23 08/10/2019 07:30:00 AM EST comple sushant eCW1 ([facility]) pneumococcal polysaccharide PPV23 08/10/2019 07:30:00 AM EST comple sushant eCW1 ([facility]) pneumococcal polysaccharide PPV23 08/10/2019 07:30:00 AM EST comple sushant eCW1 ([facility]) pneumococcal polysaccharide PPV23 08/10/2019 07:30:00 AM EST comple sushant eCW1 ([facility]) pneumococcal polysaccharide PPV23 08/10/2019 07:30:00 AM EST comple sushant eCW1 ([facility]) Medications Medication Brand Name Start Date Product Form Dose Route Admi nistrative Instructions Pharmacy Instructions Status Indications Reaction Description Data Source(s) Prazosin 1 MG Oral Capsule prazosin 05/04/2019 12:00:00 AM EDT 1 mg completed [id number] prazosin 05/04/2019 05/24/2020 30 1 mg capsule 05138 146213 [id number] Bradford Landrum [id number] [facility] ([facility]) 12 HR Bupropion Hydrochloride 150 MG Extended Release Oral T ablet bupropion HCl 02/09/2019 12:00:00 AM EDT 150 mg by mouth completed [id number] bupropion HCl by mouth [id number] 02/09/2019 09/07/2019 twice a day 30 150 mg table t sustained-release 12 hr with meals 09171 231385 [id number] Bradford Davis [id number] Psych[facility] ([facility]) quetiapine 400 MG Oral Tablet quetiapine 02/09/2019 12:00:00 AM EDT 400 mg completed [id number] quetiapine 02/09/2019 09/07/2019 at bedtime 30 400 mg tablet 30309 253902 [id number] Bradford Landrum [id number] Psych[facility]ental Health [facility] ([facility]) Trazodone Hydrochloride 100 MG Oral Tablet trazodone 09/01 12:00:00 AM EST 100 mg completed [id number] trazodone 201805/24/2020 at bedtime 100 mg tablet 61610 388826 [id number] Bradford Landrum 3 [id number] [facility] ([facility]) Insurance Providers Payer name Policy type / Coverage type Policy ID Covered democrat ID Covered democrat's relationship to hendricks Policy Hendricks Plan Information ALLSTATE INS CO NO FAULT [id number] SP [id number] RAGHU [id number] SP [id number] RAGHU [facility] O [id number] S [id number] EMEDNY [id number] SP [id number] MEDICAID [id number] SP [id number] ANS-Medicaid [id number] ANSI-Commercial [id number] ANSI-Medicaid [id number] ANSI-Medicaid [id number] ANSI-Commercial [id number] ANSI-Medicaid [id number] ANSI-Medicaid [id number] ANSI-Medicaid [id number] ANSI-Commercial [id number] RAGHU [id number] SP [id number] SELF PAY RAGHU [id number] SP [id number] 500 SELF PAY RAGHU [id number] SP [id number] 500 SELF PAY RAGHU [id number] SP [id number] 500 SELF PAY RAGHU [id number] SP [id number] SELF PAY RAGHU [id number] SP [id number] SELF PAY RAGHU unk SP unk ANSI-Medicaid [id number] ANSI-Medicaid [id number] ANSI-Commercial [id number] ANSI-Commercial [id number] ANSI-Medicaid [id number] ANSI-Medicaid [id number] ANSI-Commercial [id number] ANSI-Medicaid [id number] ANSI-Medicaid [id number] ANSI-Medicaid [id number] ANSI-Commercial [id number] ANSI-Medicaid [id number] ANSI-Commercial [id number] ANSI-Medicaid [id number] ANSI-Medicaid [id number] ANSI-Medicaid [id number] ANSI-Commercial [id number] ANSI-Medicaid [id number] ANSI-Medicaid [id number] ANSI-Medicaid [id number] ANSI-Commercial [id number] ANSI-Medicaid [id number] ANSI-Commercial [id number] ANSI-Medicaid [id number] ANSI-Medicaid [id number] ANSI-Commercial [id number] ANSI-Medicaid [id number] ANSI-Commercial [id number] ANSI-Medicaid [id number] ANSI-Medicaid [id number] [employer] DEPT [id number] SP [id number] MEDICAID M [id number] S [id number] [facility] O [id number] S [id number] ANSI-Medicaid [id number] ANSI-Medicaid [id number] ANSI-Medicaid [id number] ANSI-Medicaid [id number] ANSI-Medicaid [id number] ANSI-Medicaid [id number] ANSI-Medicaid [id number] ANSI-Medicaid [id number] MEDICAID (101) [id number] SELF PAY ONLY SP MEDICAID [id number] Patient [id number] [facility]-Medicaid [id number] ANSI-Medicaid [id number] ANS-Medicaid [id number] ANS-Medicaid [id number] ANSI-Medicaid [id number] ANSI-Medicaid [id number] SELF PAY SELF PAY Patient SELF PAY [employer]IC[employer] PPO [id number] Patient [id number] [facility]-Medicaid [id number] [facility]-Medicaid [id number] [facility] MEDICARE PPO [id number] Patient [id number] [facility] MEDICARE PPO [id number] Patient [id number] [employer] MCDHMO [id number] SP [id number] [employer] COMM[employer] PLAN MCDHMO [id number] SP [id number] [facility] [id number] SP [id number] [employer] COMMUNITY PLAN MCDHMO [id number] SP [id number] MEDICAID [id number] SP [id number] [facility] O [id number] S [id number] MEDICAID [id number] SP [id number] MEDICAID [id number] SP [id number] MEDICAID M [id number] S [id number] POMCO [id number] SP [id number] [employer] COMMUNITY PLAN MCDHMO [id number] SP [id number] MEDICAID [id number] SP [id number] HMO BLUE [id number] SP [id number] BLUE [employer] PLAN [id number] SP [id number] [employer] COMMUNITY PLAN MCDHMO [id number] SP [id number] [employer] P [id number] S [id number] SELF PAY [id number] SP [id number] Problems, Conditions, and Diagnoses Code Display Name Description Problem Type Effective Dates Data Source(s) 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 Moderate: Cocaine Condition 07/31/2020 12:00:00 AM EST [facility] ([facility]) F17.200 Nicotine dependence, unspecified, uncomp licated Tobacco Use Disorder, Severe Condition 07/31/2020 12:00:00 AM EST [facility] ([facility]) F25.0 Schizoaffective disorder, bipolar type S chizoaffective Disorder, Bipolar type Condition 07/31/2020 12:00:00 AM EST [facility] ([facility]) F10.20 Alcohol dependence, uncomplicated Alcohol Use Di sorder, Moderate Condition 07/31/2020 12:00:00 AM EST [facility] ([facility]) F43.23 Adjustment disorder with mixed anxiety a nd depressed mood Adjustment Disorder, With mixed anxiety and depressed mood Condition 2020 12:00:00 AM EST [facility] ([facility]) N48.30 [id number] Priapism Problem 08/10/2019 12:00:00 AM ES T eCW1 ([facility]) N48.30 [id number] Priapism Problem 08/10/2019 12:00:00 AM ES T eCW1 ([facility]) Surgeries/Procedures Procedure Description Date Indications Data Source(s) Extended Individual Psychotherapy - 45 min 07/31/2020 12:00:00 AM EST - 07/31/2020 12:00:00 AM EST [facility] ([facility]) Extended Individual Psychotherapy - 45 min 12:00:00 AM EST [facility] ([facility]) MHC Telemed E/M Lvl 3--Est pt 07/18/2020 12:00:00 AM EST - 07/18/2020 12:00:00 AM EST [facility] ([facility]) Telemed A/O 30" 07/18/2020 12:00:00 AM EST [facility] ([facility]) [facility] Telemed E/M Lvl 3--Est pt 07/18/2020 12:00:[address] [facility] ([facility]) Extended Individual Psychotherapy - 45 min 06/26/2020 12:00:00 AM EST - 06/26/2020 12:00:00 AM EST [facility] ([facility]) Extended Individual Psychotherapy - 45 min 0 12:00:00 AM EST [facility] ([facility]) RADEX SHOULDER COMPLETE MINIMUM 2 VIEWS 06/09/2020 12: 00:00 AM EST [facility] ([facility]) RADEX SHOULDER COMPLETE MINIMUM 2 VIEWS 06/09/2020 12: 00:00 AM EST [facility] ([facility]) MHC Telemed E/M Lvl 3--Est pt 06/07/2020 12:00:00 AM EST - 06/07/2020 12:00:00 AM EST [facility] ([facility]) MHC Telemed E/M Lvl 3--Est pt 06/07/2020 12:00:[address] [facility] ([facility]) Extended Individual Psychotherapy - 45 min 06/07/2020 12:00:00 AM EST - 06/07/2020 12:00:00 AM EST [facility] ([facility]) Extended Individual Psychotherapy - 45 min 0 12:00:00 AM EST [facility] ([facility]) Extended Individual Psychotherapy - 45 min 05/26/2020 12:00:00 AM EDT - 05/26/2020 12:00:00 AM EDT [facility] ([facility]) Extended Individual Psychotherapy - 45 min 0 12:00:00 AM EDT [facility] ([facility]) Telemed Diagnostic Eval 05/24/2020 12:00 :00 AM EDT - 05/24/2020 12:00:00 AM EDT [facility] ([facility]) Telemed Diagnostic Eval 05/24/2020 12:00:00 AM EDT [facility] ([facility]) Extended Individual Psychotherapy - 45 min 05/10/2020 12:00:00 AM EDT - 05/10/2020 12:00:00 AM EDT [facility] ([facility]) Extended Individual Psychotherapy - 45 min 0 12:00:00 AM EDT [facility] ([facility]) Extended Individual Psychotherapy - 45 min 04/05/2020 12:00:00 AM EDT - 04/05/2020 12:00:00 AM EDT [facility] ([facility]) Extended Individual Psychotherapy - 45 min 0 12:00:00 AM EDT [facility] ([facility]) X-Ray Spine Lumbosacral Complete Inc Bending Views Min Of 6 03/30/2020 12:00:00 AM EDT [facility] ([facility]) X-Ray Hip Unilateral With Pelvis 2-3 Views 03/30/2020 12:00:00 AM EDT [facility] ([facility]) RADIOLOGIC EXAM KNEE COMPLETE 4/MORE VIEWS 03/30/2020 12:00:00 AM EDT [facility] ([facility]) Pneumococcal Adult 0.5mL (Pneumovax 23) 08/10/2019 12: 00:00 AM EST eCW1 ([facility]) IMMUNIZATION ADMIN 08/10/2019 12:00:00 AM EST eCW1 ([facility]) RIV4 VACC RECOMBINANT DNA IM 08/10/2019 12:00:00 AM ES T eCW1 ([facility]) IMMUNIZATION ADMIN EACH ADD 08/10/2019 12:00:00 AM EST eCW1 ([facility]) Results ID Date Data Source [id number] 08/09/2020 09:21:00 PM EST [facility] Name Value Range Interpretation Code Description Data Linh rce(s) Supporting Document(s) SARS-CoV-2 (COVID 19) NEGATIVE - SARS-CoV-2 (COVID19) [facility] This lab was ordered by [facility] a nd reported by [facility]. ID Date Data Source [id number] 03/16/2020 11:06:00 AM EDT [facility] Name Value Range Interpretation Code Description Data Linh rce(s) Supporting Document(s) Absolute CD 4 [place] 779 /uL [phone] [facility] % CD 4 [...] 0.0-0.1 [facility] ID Date Data Source [id number] 03/18/2020 10:06:00 AM EDT [facility] Name Value Range Interpretation Code Description Data Linh rce(s) Supporting Document(s) HIV-1 RNA by PCR <20 copies/mL [facility] HIV-1 RNA not detected Th e reportable range for this assay is 20 to 10,000,000copies HIV-1 RNA/mL. log10 HIV-1 RNA [facility] Unable to calculate result since non-num fer result obtained forcomponent test. ID Date Data Source HIV-1 RNA PCR QUANT [id number] 08/10/2019 12:00:00 AM EST eCW1 ([facility]) Name Value Range Interpretation Code Description Data Linh rce(s) Supporting Document(s) HIV 1 RNA [Units/volume] (viral load) in Serum or Plasma by Probe with amplification <20 . HIV-1 RNA PCR QUANT 2 [id number] eCW1 ([facility]) HIV-1 RNA PCR QUANT 2 [id number] ID Date Data Source CD4/CD8 RATIO PROFILE [id number] 08/10/2019 12:00:00 AM EST eC W1 ([facility]) Name Value Range Interpretation Code Description Data Linh rce(s) Supporting Document(s) [phone] Abs CD8 Suppres eCW1 ([facility]) Abs CD8 Suppres Deprecated CD4 in Blood [phone] Abs CD4 Help er eCW1 ([facility]) Abs CD4 [place] 51.9 30.8-58.5 %CD4 Pos Lymphs eCW1 ([facility]) %CD4 Pos Lymphs 28.5 12.0-35.5 % CD8 Pos Lymph eCW1 ([facility]) % CD8 Pos Lymph 3.90 4.14-5.80 RBC eCW1 ([facility]) RBC 1.82 0.92-3.72 CD4/CD8 Ratio eCW1 ([facility]) CD4/CD8 Ratio 4.3 3.4-10.8 WBC eCW1 ([facility]) WBC 93 79-97 MCV eCW1 ([facility]) MCV 36.4 37.5-51.0 HCT eCW1 ([facility]) HCT 12.2 13.0-17.7 HGB eCW1 ([facility]) HGB 13.7 11.6-15.4 RDW eCW1 ([facility]) RDW 33.5 31.5-35.7 MCHC eCW1 ([facility]) MCHC 31.3 26.6-33.0 MCH eCW1 ([facility]) MCH 201 150-450 Platelets eCW1 ([facility]) Platelets 35 Not Estab. Lymphocytes eCW1 ([facility]) Lymphocytes 46 Not Estab. Neutrophils eCW1 ([facility]) Neutrophils 16 Not Estab. Monocytes eCW1 ([facility]) Monocytes 1 Not Estab. Basophils eCW1 ([facility]) Basophils 2 Not Estab. Eosinophils eCW1 ([facility]) Eosinophils 1.5 0.7-3.1 ABS Lymphs eCW1 ([facility]) ABS Lymphs 2.0 1.4-7.0 ABS Neutophils eCW1 ([facility]) ABS Neutophils 0.7 0.1-0.9 ABS Monocytes eCW1 ([facility]) ABS Monocytes 0.0 0.0-0.2 ABS Basophils eCW1 ([facility]) ABS Basophils 0.1 0.0-0.4 ABS Eosinophils eCW1 ([facility]) ABS Eosinophils ID Date Data Source SYPHILIS ANTIBODY (RPR SCREEN) 08/10/2019 12:00:00 AM EST eC W1 ([facility]) Name Value Range Interpretation Code Description Data Linh rce(s) Supporting Document(s) NONREACTIVE NONREACTIVE SYPHILIS eCW1 ([facility]) SYPHILIS ID Date Data Source [id number] 08/10/2019 12:00:00 AM EST eCW1 ([facility]) Name Value Range Interpretation Code Description Data Linh rce(s) Supporting Document(s) Hemoglobin A1c/Hemoglobin.total in Blood 6.2 HEMOGLOBIN A1c eCW1 ([facility]) ID Date Data Source TSH 08/10/2019 12:00:00 AM EST eCW1 ([facility]) Name Value Range Interpretation Code Description Data Linh rce(s) Supporting Document(s) 1.760 0.358-3.740 THYROID STIMULATING HORM ONE eCW1 ([facility]) ID Date Data Source LIPID PANEL (CARDIAC RISK) 08/10/2019 12:00:00 AM EST eCW1 ( [facility]) Name Value Range Interpretation Code Description Data Linh rce(s) Supporting Document(s) Triglyceride [Mass/volume] in Serum or Plasma by calculation 46 <150 TRIGLYCERIDES LEVEL eCW1 ([facility]) TRIGLYCERIDES LEVEL Cholesterol in LDL [Mass/volume] in Serum or Plasma by calculation 78 <100 LDL CHOLESTEROL eCW1 ([facility]) LDL CHOLESTEROL Cholesterol [Moles/volume] in Serum or Plasma 226 <200 CHOLESTEROL LEVEL eCW1 ([facility]) CHOLESTEROL LEVEL Cholesterol in HDL [Moles/volume] in Serum or Plasma 139 >40 HDL CHOLESTEROL eCW1 ([facility]) HDL CHOLESTEROL 1.625 <5 CHOLESTEROL RISK RATIO eCW1 ([facility]) CHOLESTEROL RISK RATIO 87 NON-HDL-C eCW1 ([facility]) NON-HDL-C ID Date Data Source Comprehensive Metabolic Profile (CMP) 08/10/2019 12:00:00 AM EST eCW1 ([facility]) Name Value Range Interpretation Code Description Data Linh rce(s) Supporting Document(s) 11 7-18 BLOOD UREA NITROGEN eCW1 ([facility]) 81 70-100 GLUCOSE, FASTING eCW1 ([facility]) 140 136-145 SODIUM LEVEL eCW1 ([facility]) 1.32 0.70-1.30 CREATININE FOR GFR eCW1 ([facility]) > 60.0 >56 GLOMERULAR FILTRATION RATE eCW 1 ([facility]) 105 98-107 CHLORIDE LEVEL eCW1 ([facility]) 4.4 3.5-5.1 POTASSIUM SERUM eCW1 ([facility]) 32 7-37 AST/SGOT eCW1 ([facility]) 27 21-32 CARBON DIOXIDE LEVEL eCW1 ([facility]) 8.9 8.5-10.1 CALCIUM LEVEL eCW1 ([facility]) 25 12-78 ALT/SGPT eCW1 ([facility]) 74 45-117 ALKALINE PHOSPHATASE eCW1 ([facility]) 0.3 0.2-1.0 BILIRUBIN,TOTAL eCW1 ([facility]) 3.5 3.2-5.2 ALBUMIN eCW1 ([facility]) 7.6 6.4-8.2 TOTAL PROTEIN eCW1 ([facility]) 0.85 1.00-1.93 ALBUMIN/GLOBULIN RATIO eCW1 ([facility]) Procedure Social History Code Duration Value Status Description Data Source(s ) Smoking 07/31/2020 12:00:00 AM EST Unknown if ever smoked comp leted Unknown if ever smoked [facility] ([facility]) Smoking 07/18/2020 12:00:00 AM EST Unknown if ever smoked comp leted Unknown if ever smoked [facility] ([facility]) Smoking 06/26/2020 12:00:00 AM EST Unknown if ever smoked comp leted Unknown if ever smoked [facility] ([facility]) Smoking 06/07/2020 12:00:00 AM EST Unknown if ever smoked comp leted Unknown if ever smoked [facility] ([facility]) Smoking 05/26/2020 12:00:00 AM EDT Unknown if ever smoked comp leted Unknown if ever smoked [facility] ([facility]) Smoking 05/24/2020 12:00:00 AM EDT Unknown if ever smoked comp leted Unknown if ever smoked [facility] ([facility]) Smoking 05/10/2020 12:00:00 AM EDT Unknown if ever smoked comp leted Unknown if ever smoked [facility] ([facility]) Smoking 04/05/2020 12:00:00 AM EDT Unknown if ever smoked comp leted Unknown if ever smoked [facility] ([facility]) Smoking 08/10/2019 12:00:00 AM EST Current Smoker completed Curre nt Smoker eCW1 ([facility]) Smoking 08/10/2019 12:00:00 AM EST Current Smoker completed Curre nt Smoker eCW1 ([facility]) Smoking 08/10/2019 12:00:00 AM EST Current Smoker completed Curre nt Smoker eCW1 ([facility]) Smoking 08/10/2019 12:00:00 AM EST Current Smoker completed Curre nt Smoker eCW1 ([facility]) Smoking 08/10/2019 12:00:00 AM EST Current Smoker completed Curre nt Smoker eCW1 ([facility]) Smoking 08/10/2019 12:00:00 AM EST Current Smoker completed Curre nt Smoker eCW1 ([facility]) Vital Signs ID Date Data Source UNK Name Value Range Interpretation Code Description Data Source(s) Diastolic blood pressure 0 mm[Hg] Normal (applies to non-numeric results) 0 mm[Hg] [facility] ([facility]) Systolic blood pressure 0 mm[Hg] Normal (applies t o non-numeric results) 0 mm[Hg] [facility] ([facility]) Body mass index (BMI) [Ratio] 0.00 kg/m2 No rmal (applies to non-numeric results) 0.00 kg/m2 [facility] ([facility]) Body weight Measured 0.00 lbs Normal (applies to n on-numeric results) 0.00 lbs [facility] ([facility]) Body height 0.00 in Normal (applies to non-numeric resu lts) 0.00 in [facility] ([facility]) Diastolic blood pressure 0 mm[Hg] Normal (applies to non-numeric results) 0 mm[Hg] [facility] Systolic blood pressure 0 mm[Hg] Normal (applies t o non-numeric results) 0 mm[Hg] [facility] ([facility]) Body mass index (BMI) [Ratio] 0.00 kg/m2 No rmal (applies to non-numeric results) 0.00 kg/m2 [facility] ([facility]) Body weight Measured 0.00 lbs Normal (applies to n on-numeric results) 0.00 lbs [facility] ([facility]) Body height 0.00 in Normal (applies to non-numeric resu lts) 0.00 in [facility] ([facility]) Body mass index (BMI) [Ratio] 22.9 kg/m2 22.9 k g/m2 [facility] ([facility]) Body weight 155.00 [lb_av] 155.00 [lb_av] MEDEN T ([facility]) Body height 69 [in_i] 69 [in_i] [facility] ([facility]) 5'9" Body temperature 96.3 [degF] 96.3 [degF] [facility] ([facility]) Body weight 142.00 [lb_av] 142.00 [lb_av] MEDEN T ([facility] Body temperature 100.0 [degF] 100.0 [degF] MEDE NT ([facility] Respiratory rate 18 /min 18 /min [facility] ( [facility] Heart rate 102 /min 102 /min [facility] ([facility]) Diastolic blood pressure 88 mm[Hg] 88 mm[Hg] [facility] ([facility] Systolic blood pressure 102 mm[Hg] 102 mm[Hg] M EDENT ([facility] Diastolic blood pressure 98 mm[Hg] 98 mm[Hg] eCW1 ([facility]) Systolic blood pressure 160 mm[Hg] 160 mm[Hg] e CW1 ([facility]) Body temperature 97.1 [degF] 97.1 [degF] eCW1 ( [facility]) Respiratory rate 18 /min 18 /min eCW1 ([facility]) Heart rate 75 /min 75 /min eCW1 ([facility]) Body mass index (BMI) [Ratio] 23.24 kg/m2 23.24 kg/m2 eCW1 ([facility]) Body height 68.25 [in_us] 68.25 [in_us] eCW1 ([facility]) Body weight Measured 154 [lb_av] 154 [lb_av] eC W1 ([facility])
[2020-08-16 18:06] VITALS: BP 188/92
== END 2020-08-16 18:10 | disposition home or self-care (01) ==
LOC: M ED 16:03 → EDBD 16:03 → M ED 18:10
DX: S40.022A Contusion of left upper arm, initial encounter (principal); S70.02XA Contusion of left hip, initial encounter; V03.10XA Pedestrian on foot injured in collision with car, pick-up truck or van in traffic accident, initial encounter; Y92.410 Unspecified street and highway as the place of occurrence of the external cause; E11.9 Type 2 diabetes mellitus without complications; I10 Essential (primary) hypertension; J44.9 Chronic obstructive pulmonary disease, unspecified; J45.909 Unspecified asthma, uncomplicated; F33.9 Major depressive disorder, recurrent, unspecified; F43.10 Post-traumatic stress disorder, unspecified; E78.5 Hyperlipidemia, unspecified; N40.0 Benign prostatic hyperplasia without lower urinary tract symptoms; K21.9 Gastro-esophageal reflux disease without esophagitis; Z21 Asymptomatic human immunodeficiency virus [HIV] infection status; Z79.899 Other long term (current) drug therapy; Z79.4 Long term (current) use of insulin; F17.210 Nicotine dependence, cigarettes, uncomplicated

== ENCOUNTER → 2020-09-04 | Outpatient (REF) | payer OTHER ==
[2020-09-04 16:40] LABS: ALT/SGPT 23 U/L (12-78); BILIRUBIN,TOTAL 0.2 MG/DL (0.2-1.0); BLOOD UREA NITROGEN 18 MG/DL (7-18); CALCIUM LEVEL 9.6 MG/DL (8.5-10.1); CARBON DIOXIDE LEVEL 28 MEQ/L (21-32); CHLORIDE LEVEL 106 MEQ/L (98-107); CHOLESTEROL LEVEL 187 MG/DL (<200); CREATININE FOR GFR 1.24 MG/DL (0.70-1.30); GLOMERULAR FILTRATION RATE > 60.0 (>56); GLUCOSE, FASTING 120 MG/DL (70-100); POTASSIUM SERUM 4.3 MEQ/L (3.5-5.1); SODIUM LEVEL 140 MEQ/L (136-145); TRIGLYCERIDES LEVEL 117 MG/DL (<150)
[2020-09-04 16:41] LABS: ALBUMIN 3.7 GM/DL (3.2-5.2); HDL CHOLESTEROL 82 MG/DL (>40); LDL CHOLESTEROL 82 MG/DL (<100); NON-HDL-C 105 MG/DL; TOTAL PROTEIN 7.2 GM/DL (6.4-8.2)
[2020-09-04 20:00] LABS: HEMOGLOBIN A1c 5.8 %
[2020-09-07 02:11] LABS: % CD8 Pos Lymph 27.5 % (12.0-35.5); %CD4 Pos Lymphs 51.7 % (30.8-58.5); ABS Basophils 0.1 x10E3/uL (0.0-0.2); ABS Eosinophils 0.1 x10E3/uL (0.0-0.4); ABS Lymphs 1.9 x10E3/uL (0.7-3.1); ABS Monocytes 0.7 x10E3/uL (0.1-0.9); ABS Neutophils 2.8 x10E3/uL (1.4-7.0); Abs CD4 Helper 982 /uL (359-1519); Abs CD8 Suppres 523 /uL (109-897); CD4/CD8 Ratio 1.88 (0.92-3.72); Eosinophils 2 % (Not Estab.); HCT 36.6 % (37.5-51.0); HGB 12.3 g/dL (13.0-17.7); HIV-1 RNA PCR QUANT 2 LC550285 <20 copies/mL (.); Immature Grans 0 % (Not Estab.); Lymphocytes 33 % (Not Estab.); MCH 33.1 pg (26.6-33.0); MCHC 33.6 g/dL (31.5-35.7); MCV 98 fL (79-97); Monocytes 12 % (Not Estab.); Neutrophils 52 % (Not Estab.); Platelets 244 x10E3/uL (150-450); RBC 3.72 x10E6/uL (4.14-5.80); RDW 13.6 % (11.6-15.4); WBC 5.6 x10E3/uL (3.4-10.8)
== END ==
LOC: M SFHCPLAZ 09:49
PROVIDERS: ATTEND Internal Medicine Infectious Disease
DX: B20 Human immunodeficiency virus [HIV] disease (principal); E11.9 Type 2 diabetes mellitus without complications

== ENCOUNTER → 2020-11-16 | Outpatient (REF) | payer OTHER ==
[~2020-11-16] MED LIST changes: +BUPR150T12 PO; -BUPR150T4 PO
[2020-11-16 13:42] LABS: AMORPHOUS SEDIMENT MODERATE (NEGATIVE); APPEARANCE, URINE TURBID (CLEAR); BACTERIA, URINE AUTO NEGATIVE (NEGATIVE); BILIRUBIN, URINE AUTO NEGATIVE (NEGATIVE); BLOOD, URINE BLOOD 1+ (NEGATIVE); COLOR, URINE AMBER (YELLOW); GLUCOSE, URINE (UA) AUTO NEGATIVE (NEGATIVE); KETONE, URINE AUTO TRACE mg/dL (NEGATIVE); LEUKOCYTE ESTERASE, URINE AUTO NEGATIVE (NEGATIVE); NITRITE, URINE AUTO NEGATIVE (NEGATIVE); PROTEIN, URINE AUTO NEGATIVE (NEGATIVE); RBC, URINE AUTO 1 /HPF (0-3); SPECIFIC GRAVITY URINE AUTO 1.027 (1.002-1.035); SQUAMOUS EPITHELIAL CELL UR AU 0 /HPF (0-6); WBC, URINE AUTO 1 /HPF (0-3)
[2020-11-16 13:49] LABS: BASO % 0.7 % (0.0-1.0); EOS # 0.1 10^3/uL (0.0-0.5); EOS % 1.8 % (0.0-3.0); HEMATOCRIT 36.1 % (42.0-52.0); HEMOGLOBIN 12.2 g/dl (13.5-17.5); LYMPH % 44.3 % (24.0-44.0); MEAN CORPUSCULAR HEMOGLOBIN 33.6 pg (27.0-33.0); MEAN CORPUSCULAR HGB CONC 33.8 g/dl (32.0-36.5); MEAN CORPUSCULAR VOLUME 99.4 fl (80.0-96.0); MONO # 0.7 10^3/uL (0.0-0.8); MONO % 15.9 % (2.0-8.0); NEUTROPHILS # 1.6 10^3/uL (1.5-8.5); NEUTROPHILS % 37.1 % (36.0-66.0); PLATELET COUNT, AUTOMATED 219 10^3/uL (150-450); RED BLOOD COUNT 3.63 10^6/uL (4.30-6.10); WHITE BLOOD COUNT 4.4 10^3/uL (4.0-10.0)
[2020-11-16 14:10] LABS: HEMOGLOBIN A1c 5.8 %
[2020-11-16 14:11] LABS: ERYTHROCYTE SEDIMENTATION RATE 15 mm/hr (0-20)
[2020-11-16 14:30] LABS: ALBUMIN 3.5 GM/DL (3.2-5.2); ALT/SGPT 29 U/L (12-78); BILIRUBIN,TOTAL 0.1 MG/DL (0.2-1.0); BLOOD UREA NITROGEN 15 MG/DL (7-18); C REACTIVE PROTEIN QUANTITATIV 1.15 MG/DL (0.00-0.30); CARBON DIOXIDE LEVEL 28 MEQ/L (21-32); CHLORIDE LEVEL 106 MEQ/L (98-107); CHOLESTEROL LEVEL 173 MG/DL (<200); CHOLESTEROL RISK RATIO 1.802 (<5); CPK CREATINE PHOSPHOKINASE 439 U/L (39-308); CREATININE FOR GFR 1.19 MG/DL (0.70-1.30); GLOMERULAR FILTRATION RATE > 60.0 (>56); GLUCOSE, FASTING 103 MG/DL (70-100); HDL CHOLESTEROL 96 MG/DL (>40); LDL CHOLESTEROL 67 MG/DL (<100); NON-HDL-C 77 MG/DL; POTASSIUM SERUM 4.2 MEQ/L (3.5-5.1); SODIUM LEVEL 138 MEQ/L (136-145); TOTAL PROTEIN 6.7 GM/DL (6.4-8.2); TRIGLYCERIDES LEVEL 48 MG/DL (<150)
== END ==
LOC: M SFHCPLAZ 10:37
PROVIDERS: ATTEND Physician Assistant Medical
DX: B34.9 Viral infection, unspecified (principal); R33.9 Retention of urine, unspecified; E78.00 Pure hypercholesterolemia, unspecified; I10 Essential (primary) hypertension; E11.9 Type 2 diabetes mellitus without complications; N40.1 Benign prostatic hyperplasia with lower urinary tract symptoms

== ENCOUNTER → 2021-01-08 | Outpatient (REF) | payer OTHER ==
[~2021-01-08] MED LIST changes: +GABA-283 PO; -GABA-845 PO
[2021-01-08 15:15] LABS: APPEARANCE, URINE CLEAR (CLEAR); BACTERIA, URINE AUTO NEGATIVE (NEGATIVE); BILIRUBIN, URINE AUTO NEGATIVE (NEGATIVE); BLOOD, URINE BLOOD NEGATIVE (NEGATIVE); COLOR, URINE YELLOW (YELLOW); GLUCOSE, URINE (UA) AUTO NEGATIVE (NEGATIVE); KETONE, URINE AUTO NEGATIVE (NEGATIVE); LEUKOCYTE ESTERASE, URINE AUTO NEGATIVE (NEGATIVE); NITRITE, URINE AUTO NEGATIVE (NEGATIVE); PROTEIN, URINE AUTO NEGATIVE (NEGATIVE); RBC, URINE AUTO 4 /HPF (0-3); SPECIFIC GRAVITY URINE AUTO 1.019 (1.002-1.035); SQUAMOUS EPITHELIAL CELL UR AU 0 /HPF (0-6); UROBILINOGEN, URINE AUTO 0.2 mg/dL (0.0-2.0); WBC, URINE AUTO 0 /HPF (0-3)
[2021-01-08 15:59] LABS: ALBUMIN 3.2 GM/DL (3.2-5.2); ALT/SGPT 17 U/L (12-78); BILIRUBIN,TOTAL 0.2 MG/DL (0.2-1.0); BLOOD UREA NITROGEN 14 MG/DL (7-18); CARBON DIOXIDE LEVEL 30 MEQ/L (21-32); CHLORIDE LEVEL 104 MEQ/L (98-107); CREATININE FOR GFR 1.36 MG/DL (0.70-1.30); FREE T4 0.76 NG/DL (0.76-1.46); GLOMERULAR FILTRATION RATE > 60.0 (>56); GLUCOSE, FASTING 106 MG/DL (70-100); POTASSIUM SERUM 4.8 MEQ/L (3.5-5.1); PROSTATIC SPECIFIC AG MONITOR 8.69 NG/ML (< 4.00); SODIUM LEVEL 139 MEQ/L (136-145); THYROID STIMULATING HORMONE 0.992 uIU/ML (0.358-3.740); TOTAL PROTEIN 7.7 GM/DL (6.4-8.2)
[2021-01-08 16:50] LABS: CHLAMYDIA DNA AMPLIFICATION NEGATIVE (NEGATIVE); GC DNA AMPLIFICATION NEGATIVE (NEGATIVE)
[2021-01-10 18:07] LABS: %CD4 Pos Lymphs 42.8 % (30.8-58.5); ABS Basophils 0.1 x10E3/uL (0.0-0.2); ABS Eosinophils 0.1 x10E3/uL (0.0-0.4); ABS Lymphs 1.9 x10E3/uL (0.7-3.1); ABS Monocytes 0.6 x10E3/uL (0.1-0.9); ABS Neutophils 2.9 x10E3/uL (1.4-7.0); Abs CD4 Helper 813 /uL (359-1519); Abs CD8 Suppres 684 /uL (109-897); CD4/CD8 Ratio 1.19 (0.92-3.72); Eosinophils 2 % (Not Estab.); HCT 36.1 % (37.5-51.0); HGB 12.6 g/dL (13.0-17.7); HIV-1 RNA PCR QUANT 2 LC550285 <20 copies/mL (.); Immature Grans 0 % (Not Estab.); Lymphocytes 34 % (Not Estab.); MCH 32.1 pg (26.6-33.0); MCHC 34.9 g/dL (31.5-35.7); MCV 92 fL (79-97); Monocytes 11 % (Not Estab.); Neutrophils 52 % (Not Estab.); Platelets 287 x10E3/uL (150-450); RBC 3.93 x10E6/uL (4.14-5.80); RDW 13.4 % (11.6-15.4); WBC 5.5 x10E3/uL (3.4-10.8)
== END ==
LOC: M SFHCPLAZ 14:05
PROVIDERS: ATTEND Internal Medicine Infectious Disease
DX: B20 Human immunodeficiency virus [HIV] disease (principal); R97.20 Elevated prostate specific antigen [PSA]; R63.4 Abnormal weight loss

== ENCOUNTER → 2021-01-25 | Outpatient (REF) | payer OTHER ==
[~2021-01-25] MED LIST changes: +OMEP40CA4 PO; -OMEP40CA97 PO
[2021-01-25 18:29] LABS: APPEARANCE, URINE CLEAR (CLEAR); BACTERIA, URINE AUTO NEGATIVE (NEGATIVE); BILIRUBIN, URINE AUTO NEGATIVE (NEGATIVE); BLOOD, URINE BLOOD NEGATIVE (NEGATIVE); CALCIUM OXALATE CRYSTALS SMALL; COLOR, URINE YELLOW (YELLOW); GLUCOSE, URINE (UA) AUTO NEGATIVE (NEGATIVE); KETONE, URINE AUTO NEGATIVE (NEGATIVE); LEUKOCYTE ESTERASE, URINE AUTO NEGATIVE (NEGATIVE); NITRITE, URINE AUTO NEGATIVE (NEGATIVE); PROTEIN, URINE AUTO NEGATIVE (NEGATIVE); RBC, URINE AUTO 0 /HPF (0-3); SPECIFIC GRAVITY URINE AUTO 1.025 (1.002-1.035); SQUAMOUS EPITHELIAL CELL UR AU 0 /HPF (0-6); UROBILINOGEN, URINE AUTO 0.2 mg/dL (0.0-2.0); WBC, URINE AUTO 0 /HPF (0-3)
== END ==
LOC: M SFHCWAGY 17:57
PROVIDERS: ATTEND Physician Assistant Medical
DX: R39.16 Straining to void (principal)

== ENCOUNTER → 2021-01-25 | Outpatient (CLI) | payer OTHER | LOC: M PLALAB 12:39 | PROVIDERS: ATTEND Physician Assistant Medical | DX: I10 Essential (primary) hypertension (principal); N41.0 Acute prostatitis; Z53.8 Procedure and treatment not carried out for other reasons ==

== ENCOUNTER → 2021-02-01 | Outpatient (REF) | payer OTHER ==
[~2021-02-01] MED LIST changes: +DOK1CAP4 PO; -DOK1CAP7 PO; -HALO5TA PO; +HALO5TAB33 PO
[2021-02-01 20:18] LABS: APPEARANCE, URINE CLEAR (CLEAR); BACTERIA, URINE AUTO NEGATIVE (NEGATIVE); BILIRUBIN, URINE AUTO NEGATIVE (NEGATIVE); BLOOD, URINE BLOOD 2+ (NEGATIVE); COLOR, URINE YELLOW (YELLOW); GLUCOSE, URINE (UA) AUTO NEGATIVE (NEGATIVE); KETONE, URINE AUTO NEGATIVE (NEGATIVE); LEUKOCYTE ESTERASE, URINE AUTO NEGATIVE (NEGATIVE); MUCUS, URINE SMALL (NEGATIVE); NITRITE, URINE AUTO NEGATIVE (NEGATIVE); PROTEIN, URINE AUTO NEGATIVE (NEGATIVE); RBC, URINE AUTO 4 /HPF (0-3); SPECIFIC GRAVITY URINE AUTO 1.023 (1.002-1.035); SQUAMOUS EPITHELIAL CELL UR AU 0 /HPF (0-6); UROBILINOGEN, URINE AUTO 0.2 mg/dL (0.0-2.0); WBC, URINE AUTO 0 /HPF (0-3)
== END ==
LOC: M SMT 16:51
PROVIDERS: ATTEND Urology
DX: R97.20 Elevated prostate specific antigen [PSA] (principal)

== ENCOUNTER → 2021-04-20 | Outpatient (CLI) | payer OTHER ==
[~2021-04-20] MED LIST changes: +HALO5TA PO; -HALO5TAB33 PO
--- NOTE | 2021-04-20 12:56 | REP ---
INDICATION: DISC DEGENERATION. Stenosis versus disc herniation. COMPARISON: No comparison cervical spine imaging. Selected images from chest CT December 02, 2019 a reviewed. TECHNIQUE: Sagittal and axial T1 and T2-weighted scans are acquired in the usual fashion with and without fat saturation. Sequences include spin echo, turbo spin-echo, and STIR imaging sequences. FINDINGS: Incidental note is made of a left thyroid nodule. This measures 3.0 cm x 2.6 cm by 2.6 cm in diameter. It is visible in retrospect on the December 02, [address] images. No other extra vertebral abnormality is observed. Cortical and medullary bone signal intensity are normal in the cervical spine. Vertebral body heights are preserved. Alignment is normal. The cervical cord is normal in course, caliber, and signal intensity on T1 and T2 weighted scans. Axial and sagittal images taken at C2-3 demonstrate a small right paracentral focal disc protrusion indenting the ventral margin of the thecal sac. This does not compress or displace the cord. No neural foraminal narrowing is seen. At C3-4, posterior disc margin appears intact. No spinal stenosis or foraminal narrowing is seen. At C4-5, there is mild central disc bulging effacing the ventral subarachnoid space. No spinal stenosis is seen. Foramina are adequate. At C5-C6 there is no evidence of disc protrusion or spinal stenosis. No neural foraminal narrowing is seen. At the C6-C7 disc level there is mild central disc bulging. There is minimal uncovertebral spurring bilaterally, left greater than right. The C7-T1 level is unremarkable. IMPRESSION: There is a small right paracentral focal disc protrusion at C2-3. Central disc bulging is visible at C4-5. Left-sided uncovertebral spurring mild in degree is present at C6-C7. Incidental note is made of a 3 cm left thyroid nodule. Consider thyroid sonography. <Electronically signed by Casimiro Marie > 04/20/21 [id number]
== END ==
LOC: M RAD 10:59
PROVIDERS: ATTEND Physician Assistant
DX: M50.30 Other cervical disc degeneration, unspecified cervical region (principal); M50.20 Other cervical disc displacement, unspecified cervical region

== ENCOUNTER → 2021-05-07 | Outpatient (REF) | payer OTHER | LOC: M SMT 17:51 | PROVIDERS: ATTEND Urology | DX: R31.29 Other microscopic hematuria (principal) ==

== ENCOUNTER → 2021-05-23 | Outpatient (CLI) | payer OTHER ==
[2021-05-23 18:51] LABS: ALBUMIN 3.4 GM/DL (3.2-5.2); ALT/SGPT 21 U/L (12-78); BILIRUBIN,TOTAL 0.4 MG/DL (0.2-1.0); BLOOD UREA NITROGEN 14 MG/DL (7-18); CALCIUM LEVEL 9.2 MG/DL (8.5-10.1); CARBON DIOXIDE LEVEL 33 MEQ/L (21-32); CHLORIDE LEVEL 107 MEQ/L (98-107); CREATININE FOR GFR 1.29 MG/DL (0.70-1.30); GLOMERULAR FILTRATION RATE > 60.0 (>56); GLUCOSE, FASTING 96 MG/DL (70-100); POTASSIUM SERUM 4.6 MEQ/L (3.5-5.1); SODIUM LEVEL 139 MEQ/L (136-145); TOTAL PROTEIN 7.3 GM/DL (6.4-8.2)
== END ==
LOC: M PLALAB 13:31
PROVIDERS: ATTEND Internal Medicine Infectious Disease
DX: B20 Human immunodeficiency virus [HIV] disease (principal)

== ENCOUNTER → 2021-05-23 | Outpatient (REF) | payer OTHER ==
[2021-05-25 23:07] LABS: PSA TOTAL 2.9 ng/mL (0.0-4.0)
== END ==
LOC: M LABSMT 17:53
PROVIDERS: ATTEND Urology
DX: R97.20 Elevated prostate specific antigen [PSA] (principal)

== ENCOUNTER → 2021-08-20 | Outpatient (CLI) | payer OTHER ==
[~2021-08-20] MED LIST changes: -HALO5TA PO; +HALO5TAB33 PO
[2021-08-20 18:31] LABS: BLOOD UREA NITROGEN 15 MG/DL (7-18); CALCIUM LEVEL 8.8 MG/DL (8.5-10.1); CARBON DIOXIDE LEVEL 29 MEQ/L (21-32); CHLORIDE LEVEL 111 MEQ/L (98-107); CREATININE FOR GFR 1.53 MG/DL (0.70-1.30); GLOMERULAR FILTRATION RATE > 60.0 (>56); GLUCOSE, FASTING 91 MG/DL (70-100); POTASSIUM SERUM 4.7 MEQ/L (3.5-5.1); SODIUM LEVEL 141 MEQ/L (136-145)
== END ==
LOC: M LAB 16:59
PROVIDERS: ATTEND Urology
DX: R31.29 Other microscopic hematuria (principal)

== ENCOUNTER → 2021-09-21 | Outpatient (CLI) | payer OTHER ==
[~2021-09-21] MED LIST changes: +ISOVUE-370 76% 100ML VIAL As Ordered ONE
== END ==
LOC: M RAD 15:43
PROVIDERS: ATTEND Urology
DX: R31.1 Benign essential microscopic hematuria (principal)
CPT/HCPCS: 74178; Q9967

== ENCOUNTER 2021-10-10 14:30 | Emergency (ER) | payer OTHER ==
[~2021-10-10] VITALS: Ht 175.3 cm; Wt 68.2 kg
[~2021-10-10 14:30] MED LIST changes: -ISOVUE-370 76% 100ML VIAL As Ordered ONE
[2021-10-10 14:36] VITALS: BP 177/78
== END 2021-10-10 16:37 | disposition left against medical advice (07) ==
LOC: M ED 14:30
DX: Z53.29 Procedure and treatment not carried out because of patient's decision for other reasons (principal)

== ENCOUNTER 2022-03-08 11:43 | Inpatient (IN) | payer OTHER ==
[~2022-03-08] VITALS: Ht 175.3 cm; Wt 64.0 kg
[~2022-03-08 11:43] MED LIST changes: -ASMA220A2 IN; -ASMA220A2 INH; +MOME220A2 IN; +MOME220A2 INH; +SENN8.6T58 PO; +TAMS1CAP17 PO
[2022-03-08 12:45] LABS: HEMATOCRIT 36.3 % (42.0-52.0); HEMOGLOBIN 12.4 g/dl (13.5-17.5); MEAN CORPUSCULAR HEMOGLOBIN 32.7 pg (27.0-33.0); MEAN CORPUSCULAR HGB CONC 34.2 g/dl (32.0-36.5); MEAN CORPUSCULAR VOLUME 95.8 fl (80.0-96.0); PLATELET COUNT, AUTOMATED 201 10^3/uL (150-450); RED BLOOD COUNT 3.79 10^6/uL (4.30-6.10)
[2022-03-08 13:15] LABS: ACETAMINOPHEN LEVEL < 2.0 UG/ML (10.0-30.0); ALBUMIN 3.2 GM/DL (3.2-5.2); ALT/SGPT 22 U/L (12-78); BILIRUBIN,DIRECT 0.2 MG/DL (0.0-0.2); BILIRUBIN,TOTAL 0.2 MG/DL (0.2-1.0); BLOOD UREA NITROGEN 7 MG/DL (7-18); CALCIUM LEVEL 9.1 MG/DL (8.5-10.1); CARBON DIOXIDE LEVEL 23 MEQ/L (21-32); CHLORIDE LEVEL 107 MEQ/L (98-107); CREATININE FOR GFR 1.22 MG/DL (0.70-1.30); ETHYL ALCOHOL (ETHANOL) 0.051 % (0.000-0.010); GLOMERULAR FILTRATION RATE > 60.0 (>56); GLUCOSE, FASTING 106 MG/DL (70-100); POTASSIUM SERUM 3.4 MEQ/L (3.5-5.1); SALICYLATE LEVEL 4.6 MG/DL (5.0-30.0); SODIUM LEVEL 136 MEQ/L (136-145); THYROID STIMULATING HORMONE 0.776 uIU/ML (0.358-3.740)
[2022-03-08 13:16] LABS: RSV AMPLIFICATION NEGATIVE (NEGATIVE)
[2022-03-08 13:33] LABS: AMPHETAMINES LEVEL URINE NEGATIVE (NEGATIVE); BARBITURATES URINE NEGATIVE (NEGATIVE); BENZODIAZEPINES URINE NEGATIVE (NEGATIVE); CANNABINOIDS URINE POSITIVE (NEGATIVE); COCAINE METABOLITE URINE POSITIVE (NEGATIVE); METHADONE URINE NEGATIVE (NEGATIVE); OPIATES URINE NEGATIVE (NEGATIVE); PHENCYCLIDINE URINE NEGATIVE (NEGATIVE)
[2022-03-08] MEDS ORDERED: POTASSIUM CHLORIDE 10MEQ SR TABLET PO ONE (14:00)
[2022-03-08] MEDS ORDERED: TRAZ1TAB14 PO (21:17)
[2022-03-08] MEDS ORDERED: NYST-13 TOP (21:17)
[2022-03-08] MEDS ORDERED: QUET400T2 PO (21:17)
[2022-03-08] MEDS ORDERED: FINA5TAB2 PO (21:17)
[2022-03-08] MEDS ORDERED: HOME MED LIST COMPLETE! XX SCH (21:20)
[2022-03-08] MEDS ORDERED: traZODone 50 MG TAB PO ONE (22:30)
[2022-03-08] MEDS ORDERED: NYSTATIN OINTMENT 15 GM TOP SCH (22:30)
[2022-03-08] MEDS ORDERED: PRAZOSIN 1 MG CAP PO ONE (22:30)
[2022-03-08] MEDS ORDERED: QUEtiapine FUMARATE 200 MG TAB PO ONE (22:30)
[2022-03-08] MEDS: PANTOPRAZOLE 40MG TAB (PROTONIX) PO SCH (23:55)
[2022-03-08] MEDS: TAMSULOSIN 0.4 MG CAP PO SCH (23:55)
[2022-03-08] MEDS: cloNIDine 0.1MG TABLET PO SCH (23:55)
[2022-03-08] MEDS: GABAPENTIN 400MG CAP PO SCH (23:55)
[2022-03-08] MEDS: NYSTATIN OINTMENT 15 GM TOP SCH (23:55)
[2022-03-09] MEDS: INSULIN LISPRO (NovoLOG) PER UNIT SC SCH ×3 (07:30→17:30)
[2022-03-09] MEDS: FLUTICASONE HFA 110 MCG 12 GM INHALER (FLOVENT) INH SCH (08:00)
[2022-03-09] MEDS: ramipriL 5 MG CAP PO SCH (09:00)
[2022-03-09] MEDS: NYSTATIN OINTMENT 15 GM TOP SCH ×2 (09:00→21:47)
[2022-03-09] MEDS ORDERED: ENTER DRUG NAME HERE (PATIENT'S OWN MED) PO SCH (09:00)
[2022-03-09] MEDS: buPROPion **XL** TABLET 150MG (WELLBUTRIN XL) PO SCH (09:36)
[2022-03-09] MEDS: PANTOPRAZOLE 40MG TAB (PROTONIX) PO SCH ×2 (09:36→21:47)
[2022-03-09] MEDS: FOLIC ACID 1MG TAB PO SCH (09:36)
[2022-03-09] MEDS: metFORMIN (GLUCOPHAGE) 500MG TAB PO SCH ×2 (09:37→17:45)
[2022-03-09] MEDS: GABAPENTIN 400MG CAP PO SCH ×3 (09:40→21:47)
[2022-03-09] MEDS: TAMSULOSIN 0.4 MG CAP PO SCH ×2 (09:42→21:49)
[2022-03-09] MEDS: FINASTERIDE 5MG TAB PO SCH (09:43)
[2022-03-09] MEDS: ATORVASTATIN 20 MG TAB PO SCH (09:43)
[2022-03-09] MEDS: cloNIDine 0.1MG TABLET PO SCH (21:48)
[2022-03-09] MEDS: QUEtiapine FUMARATE 200 MG TAB PO SCH (21:48)
[2022-03-09] MEDS: PRAZOSIN 1 MG CAP PO SCH (21:49)
[2022-03-09] MEDS: traZODone 50 MG TAB PO SCH (21:49)
[2022-03-09] MEDS ORDERED: IBUPROFEN 800 MG TAB PO ONE (21:55)
[2022-03-10] MEDS: INSULIN LISPRO (NovoLOG) PER UNIT SC SCH ×3 (07:30→17:30)
[2022-03-10] MEDS: buPROPion **XL** TABLET 150MG (WELLBUTRIN XL) PO SCH (10:23)
[2022-03-10] MEDS: PANTOPRAZOLE 40MG TAB (PROTONIX) PO SCH ×2 (10:23→20:58)
[2022-03-10] MEDS: FINASTERIDE 5MG TAB PO SCH (10:23)
[2022-03-10] MEDS: GABAPENTIN 400MG CAP PO SCH ×3 (10:24→20:57)
[2022-03-10] MEDS: ATORVASTATIN 20 MG TAB PO SCH (10:24)
[2022-03-10] MEDS: metFORMIN (GLUCOPHAGE) 500MG TAB PO SCH ×2 (10:24→18:00)
[2022-03-10] MEDS: FOLIC ACID 1MG TAB PO SCH (10:24)
[2022-03-10] MEDS: ramipriL 5 MG CAP PO SCH (10:24)
[2022-03-10] MEDS: TAMSULOSIN 0.4 MG CAP PO SCH ×2 (10:24→20:57)
[2022-03-10] MEDS: NYSTATIN OINTMENT 15 GM TOP SCH ×2 (10:27→20:58)
[2022-03-10] MEDS: FLUTICASONE HFA 110 MCG 12 GM INHALER (FLOVENT) INH SCH (12:23)
[2022-03-10] MEDS: PRAZOSIN 1 MG CAP PO SCH (20:57)
[2022-03-10] MEDS: traZODone 50 MG TAB PO SCH (20:57)
[2022-03-10] MEDS: QUEtiapine FUMARATE 200 MG TAB PO SCH (20:57)
[2022-03-10] MEDS: cloNIDine 0.1MG TABLET PO SCH (20:57)
[2022-03-11] MEDS: INSULIN LISPRO (NovoLOG) PER UNIT SC SCH ×4 (07:30→20:53)
[2022-03-11] MEDS: TAMSULOSIN 0.4 MG CAP PO SCH ×2 (08:25→20:55)
[2022-03-11] MEDS: FOLIC ACID 1MG TAB PO SCH (08:25)
[2022-03-11] MEDS: ATORVASTATIN 20 MG TAB PO SCH (08:25)
[2022-03-11] MEDS: buPROPion **XL** TABLET 150MG (WELLBUTRIN XL) PO SCH (08:25)
[2022-03-11] MEDS: PANTOPRAZOLE 40MG TAB (PROTONIX) PO SCH ×2 (08:25→20:55)
[2022-03-11] MEDS: metFORMIN (GLUCOPHAGE) 500MG TAB PO SCH ×2 (08:25→18:32)
[2022-03-11] MEDS: GABAPENTIN 400MG CAP PO SCH ×3 (08:25→20:55)
[2022-03-11] MEDS: FINASTERIDE 5MG TAB PO SCH (08:26)
[2022-03-11] MEDS: NYSTATIN OINTMENT 15 GM TOP SCH (08:27)
[2022-03-11] MEDS: FLUTICASONE HFA 110 MCG 12 GM INHALER (FLOVENT) INH SCH (08:32)
[2022-03-11] MEDS: ramipriL 5 MG CAP PO SCH (09:00)
[2022-03-11] MEDS ORDERED: DOCUSATE SODIUM 100MG CAPSULE PO PRN (13:30)
[2022-03-11] MEDS ORDERED: SENNA 8.6 MG TAB (SENOKOT) PO PRN (13:30)
[2022-03-11] MEDS ORDERED: ALBUTEROL 90 MCG/ACT 8GM HFA INHALER INH PRN (13:30)
[2022-03-11] MEDS ORDERED: GLUCAGON INJ 1MG VIAL SC PRN (15:05)
[2022-03-11] MEDS ORDERED: GLUCOSE 4GM CHEW TABLET PO PRN (15:05)
[2022-03-11 17:42] VITALS: BP 162/82
[2022-03-11] MEDS ORDERED: NICOTINE 21MG/24HR 1 EA TRANSDERMAL TD PRN (20:20)
[2022-03-11] MEDS: ADVAIR HFA 115/21MCG INHALER INH SCH (20:54)
[2022-03-11] MEDS: QUEtiapine FUMARATE 200 MG TAB PO SCH (20:55)
[2022-03-11] MEDS: traZODone 50 MG TAB PO SCH (20:55)
[2022-03-12 06:20] VITALS: BP 142/88
[2022-03-12] MEDS: INSULIN LISPRO (NovoLOG) PER UNIT SC SCH ×4 (06:36→20:24)
[2022-03-12] MEDS: ADVAIR HFA 115/21MCG INHALER INH SCH ×2 (07:43→20:22)
[2022-03-12] MEDS: metFORMIN (GLUCOPHAGE) 500MG TAB PO SCH ×2 (07:44→18:00)
[2022-03-12] MEDS: GABAPENTIN 400MG CAP PO SCH ×3 (11:18→20:23)
[2022-03-12] MEDS: TAMSULOSIN 0.4 MG CAP PO SCH ×2 (11:19→20:23)
[2022-03-12] MEDS: PANTOPRAZOLE 40MG TAB (PROTONIX) PO SCH ×2 (11:19→20:23)
[2022-03-12] MEDS: TRIUMEQ PO SCH (12:58)
[2022-03-12] MEDS: ATORVASTATIN 20 MG TAB PO SCH (12:59)
[2022-03-12] MEDS: ramipriL 5 MG CAP PO SCH (12:59)
[2022-03-12] MEDS: buPROPion **XL** TABLET 150MG (WELLBUTRIN XL) PO SCH (13:00)
[2022-03-12] MEDS: FINASTERIDE 5MG TAB PO SCH (13:00)
[2022-03-12 16:58] VITALS: BP 140/82
[2022-03-12] MEDS: traZODone 50 MG TAB PO SCH (20:23)
[2022-03-12] MEDS: QUEtiapine FUMARATE 200 MG TAB PO SCH (20:23)
[2022-03-12] MEDS: PRAZOSIN 1 MG CAP PO SCH (20:23)
[2022-03-12] MEDS ORDERED: MOM 30ML SUSPENSION UDC PO PRN (20:45)
[2022-03-12] MEDS: MAALOX 30 ML SUSP *UDC PO PRN (20:55)
[2022-03-12] MEDS: IBUPROFEN 600MG TAB PO PRN (20:56)
[2022-03-13] MEDS: MAALOX 30 ML SUSP *UDC PO PRN ×2 (06:19→12:07)
[2022-03-13] MEDS: INSULIN LISPRO (NovoLOG) PER UNIT SC SCH ×4 (06:43→21:00)
[2022-03-13 06:46] VITALS: BP 115/66
[2022-03-13] MEDS: buPROPion **XL** TABLET 150MG (WELLBUTRIN XL) PO SCH (08:56)
[2022-03-13] MEDS: GABAPENTIN 400MG CAP PO SCH ×3 (08:56→21:07)
[2022-03-13] MEDS: ADVAIR HFA 115/21MCG INHALER INH SCH ×2 (08:56→21:06)
[2022-03-13] MEDS: TRIUMEQ PO SCH (08:56)
[2022-03-13] MEDS: PANTOPRAZOLE 40MG TAB (PROTONIX) PO SCH ×2 (08:56→21:06)
[2022-03-13] MEDS: TAMSULOSIN 0.4 MG CAP PO SCH ×2 (08:56→21:07)
[2022-03-13] MEDS: ATORVASTATIN 20 MG TAB PO SCH (08:57)
[2022-03-13] MEDS: ramipriL 5 MG CAP PO SCH (08:57)
[2022-03-13] MEDS: FINASTERIDE 5MG TAB PO SCH (08:57)
[2022-03-13] MEDS: metFORMIN (GLUCOPHAGE) 500MG TAB PO SCH ×2 (08:57→17:02)
[2022-03-13 16:48] VITALS: BP 136/79
[2022-03-13] MEDS: NYSTATIN CREAM 15GM TOP PRN (17:46)
[2022-03-13] MEDS: QUEtiapine FUMARATE 200 MG TAB PO SCH (21:06)
[2022-03-13] MEDS: PRAZOSIN 1 MG CAP PO SCH (21:07)
[2022-03-13] MEDS: traZODone 50 MG TAB PO SCH (21:07)
[2022-03-14] MEDS: INSULIN LISPRO (NovoLOG) PER UNIT SC SCH ×4 (06:36→20:42)
[2022-03-14 06:52] VITALS: BP 151/84
[2022-03-14] MEDS: ADVAIR HFA 115/21MCG INHALER INH SCH ×2 (09:06→20:33)
[2022-03-14] MEDS: TRIUMEQ PO SCH (09:07)
[2022-03-14] MEDS: FINASTERIDE 5MG TAB PO SCH (09:07)
[2022-03-14] MEDS: ramipriL 5 MG CAP PO SCH (09:07)
[2022-03-14] MEDS: PANTOPRAZOLE 40MG TAB (PROTONIX) PO SCH ×2 (09:08→20:33)
[2022-03-14] MEDS: buPROPion **XL** TABLET 150MG (WELLBUTRIN XL) PO SCH (09:08)
[2022-03-14] MEDS: metFORMIN (GLUCOPHAGE) 500MG TAB PO SCH ×2 (09:08→17:31)
[2022-03-14] MEDS: TAMSULOSIN 0.4 MG CAP PO SCH ×2 (09:08→20:32)
[2022-03-14] MEDS: GABAPENTIN 400MG CAP PO SCH ×3 (09:08→20:33)
[2022-03-14] MEDS: ATORVASTATIN 20 MG TAB PO SCH (09:09)
[2022-03-14 18:28] VITALS: BP 117/70
[2022-03-14] MEDS: QUEtiapine FUMARATE 200 MG TAB PO SCH (20:32)
[2022-03-14] MEDS: PRAZOSIN 1 MG CAP PO SCH (20:33)
[2022-03-14] MEDS: IBUPROFEN 600MG TAB PO PRN (20:38)
[2022-03-14] MEDS: NYSTATIN CREAM 15GM TOP PRN (20:40)
[2022-03-15] MEDS: INSULIN LISPRO (NovoLOG) PER UNIT SC SCH ×4 (06:49→20:56)
[2022-03-15 06:53] VITALS: BP 135/70
[2022-03-15] MEDS: TRIUMEQ PO SCH (09:02)
[2022-03-15] MEDS: metFORMIN (GLUCOPHAGE) 500MG TAB PO SCH ×2 (09:03→17:14)
[2022-03-15] MEDS: GABAPENTIN 400MG CAP PO SCH ×3 (09:03→20:54)
[2022-03-15] MEDS: ATORVASTATIN 20 MG TAB PO SCH (09:03)
[2022-03-15] MEDS: PANTOPRAZOLE 40MG TAB (PROTONIX) PO SCH ×2 (09:03→20:54)
[2022-03-15] MEDS: ADVAIR HFA 115/21MCG INHALER INH SCH ×2 (09:03→20:56)
[2022-03-15] MEDS: TAMSULOSIN 0.4 MG CAP PO SCH ×2 (09:03→20:56)
[2022-03-15] MEDS: buPROPion **XL** TABLET 150MG (WELLBUTRIN XL) PO SCH (09:03)
[2022-03-15] MEDS: ramipriL 5 MG CAP PO SCH (09:04)
[2022-03-15] MEDS: FINASTERIDE 5MG TAB PO SCH (09:04)
[2022-03-15 16:15] VITALS: BP 116/60
[2022-03-15] MEDS: QUEtiapine FUMARATE 200 MG TAB PO SCH (20:55)
[2022-03-15] MEDS: IBUPROFEN 600MG TAB PO PRN (20:55)
[2022-03-15] MEDS: PRAZOSIN 1 MG CAP PO SCH (20:56)
[2022-03-16 06:35] VITALS: BP 130/70
[2022-03-16] MEDS: INSULIN LISPRO (NovoLOG) PER UNIT SC SCH ×4 (06:38→20:58)
[2022-03-16] MEDS: TRIUMEQ PO SCH (08:25)
[2022-03-16] MEDS: ADVAIR HFA 115/21MCG INHALER INH SCH ×2 (08:25→20:56)
[2022-03-16] MEDS: FINASTERIDE 5MG TAB PO SCH (08:27)
[2022-03-16] MEDS: metFORMIN (GLUCOPHAGE) 500MG TAB PO SCH ×2 (08:27→17:10)
[2022-03-16] MEDS: TAMSULOSIN 0.4 MG CAP PO SCH ×2 (08:27→20:57)
[2022-03-16] MEDS: PANTOPRAZOLE 40MG TAB (PROTONIX) PO SCH ×2 (08:27→20:57)
[2022-03-16] MEDS: IBUPROFEN 600MG TAB PO PRN ×2 (08:27→16:58)
[2022-03-16] MEDS: ATORVASTATIN 20 MG TAB PO SCH (08:27)
[2022-03-16] MEDS: GABAPENTIN 400MG CAP PO SCH ×3 (08:27→20:57)
[2022-03-16] MEDS: buPROPion **XL** TABLET 150MG (WELLBUTRIN XL) PO SCH (08:27)
[2022-03-16] MEDS: ramipriL 5 MG CAP PO SCH (08:28)
[2022-03-16 16:44] VITALS: BP 126/72
[2022-03-16] MEDS: NYSTATIN CREAM 15GM TOP PRN (16:59)
[2022-03-16] MEDS: PRAZOSIN 1 MG CAP PO SCH (20:57)
[2022-03-16] MEDS: QUEtiapine FUMARATE 200 MG TAB PO SCH (20:57)
[2022-03-17] MEDS: INSULIN LISPRO (NovoLOG) PER UNIT SC SCH ×4 (06:33→20:55)
[2022-03-17 06:35] VITALS: BP 130/74
[2022-03-17] MEDS: ADVAIR HFA 115/21MCG INHALER INH SCH ×2 (08:43→20:53)
[2022-03-17] MEDS: FINASTERIDE 5MG TAB PO SCH (08:43)
[2022-03-17] MEDS: TRIUMEQ PO SCH (08:43)
[2022-03-17] MEDS: metFORMIN (GLUCOPHAGE) 500MG TAB PO SCH ×2 (08:44→17:20)
[2022-03-17] MEDS: ramipriL 5 MG CAP PO SCH (08:44)
[2022-03-17] MEDS: buPROPion **XL** TABLET 150MG (WELLBUTRIN XL) PO SCH (08:44)
[2022-03-17] MEDS: TAMSULOSIN 0.4 MG CAP PO SCH ×2 (08:44→20:54)
[2022-03-17] MEDS: GABAPENTIN 400MG CAP PO SCH ×3 (08:44→20:54)
[2022-03-17] MEDS: PANTOPRAZOLE 40MG TAB (PROTONIX) PO SCH ×2 (08:44→20:54)
[2022-03-17] MEDS: ATORVASTATIN 20 MG TAB PO SCH (08:44)
[2022-03-17] MEDS: CEPACOL LOZENGE PO PRN ×2 (15:36→20:57)
[2022-03-17] MEDS: NYSTATIN CREAM 15GM TOP PRN (15:37)
[2022-03-17 17:07] VITALS: BP 135/78
[2022-03-17] MEDS: QUEtiapine FUMARATE 200 MG TAB PO SCH (20:54)
[2022-03-17] MEDS: PRAZOSIN 1 MG CAP PO SCH (20:54)
[2022-03-17] MEDS: IBUPROFEN 600MG TAB PO PRN (20:57)
[2022-03-18 06:26] VITALS: BP 144/84
[2022-03-18] MEDS: INSULIN LISPRO (NovoLOG) PER UNIT SC SCH ×4 (06:41→21:00)
[2022-03-18] MEDS: NYSTATIN CREAM 15GM TOP PRN (06:45)
[2022-03-18] MEDS: CEPACOL LOZENGE PO PRN ×3 (06:45→21:08)
[2022-03-18] MEDS: ADVAIR HFA 115/21MCG INHALER INH SCH ×2 (08:25→21:10)
[2022-03-18] MEDS: TRIUMEQ PO SCH (08:26)
[2022-03-18] MEDS: buPROPion **XL** TABLET 150MG (WELLBUTRIN XL) PO SCH (08:26)
[2022-03-18] MEDS: GABAPENTIN 400MG CAP PO SCH ×3 (08:27→21:08)
[2022-03-18] MEDS: TAMSULOSIN 0.4 MG CAP PO SCH ×2 (08:27→21:08)
[2022-03-18] MEDS: PANTOPRAZOLE 40MG TAB (PROTONIX) PO SCH ×2 (08:27→21:08)
[2022-03-18] MEDS: metFORMIN (GLUCOPHAGE) 500MG TAB PO SCH ×2 (08:27→17:30)
[2022-03-18] MEDS: ATORVASTATIN 20 MG TAB PO SCH (08:27)
[2022-03-18] MEDS: ramipriL 5 MG CAP PO SCH (08:28)
[2022-03-18] MEDS: FINASTERIDE 5MG TAB PO SCH (08:28)
[2022-03-18] MEDS: NICOTINE 21MG/24HR 1 EA TRANSDERMAL TD PRN (08:29)
[2022-03-18 18:36] VITALS: BP 146/84
[2022-03-18] MEDS: PRAZOSIN 1 MG CAP PO SCH (21:08)
[2022-03-18] MEDS: QUEtiapine FUMARATE 200 MG TAB PO SCH (21:08)
[2022-03-18] MEDS: IBUPROFEN 600MG TAB PO PRN (21:10)
[2022-03-19 06:34] VITALS: BP 110/66
[2022-03-19] MEDS: INSULIN LISPRO (NovoLOG) PER UNIT SC SCH ×4 (06:41→20:47)
[2022-03-19] MEDS: CEPACOL LOZENGE PO PRN ×3 (06:43→19:30)
[2022-03-19] MEDS: buPROPion **XL** TABLET 150MG (WELLBUTRIN XL) PO SCH (08:25)
[2022-03-19] MEDS: PANTOPRAZOLE 40MG TAB (PROTONIX) PO SCH ×2 (08:25→20:46)
[2022-03-19] MEDS: TRIUMEQ PO SCH (08:25)
[2022-03-19] MEDS: metFORMIN (GLUCOPHAGE) 500MG TAB PO SCH ×2 (08:25→17:20)
[2022-03-19] MEDS: ADVAIR HFA 115/21MCG INHALER INH SCH ×2 (08:25→19:30)
[2022-03-19] MEDS: GABAPENTIN 400MG CAP PO SCH ×3 (08:26→20:46)
[2022-03-19] MEDS: TAMSULOSIN 0.4 MG CAP PO SCH ×2 (08:26→20:46)
[2022-03-19] MEDS: ATORVASTATIN 20 MG TAB PO SCH (08:26)
[2022-03-19] MEDS: ramipriL 5 MG CAP PO SCH (08:26)
[2022-03-19] MEDS: NYSTATIN CREAM 15GM TOP PRN ×2 (08:27→20:48)
[2022-03-19] MEDS: FINASTERIDE 5MG TAB PO SCH (08:27)
[2022-03-19] MEDS: NICOTINE 21MG/24HR 1 EA TRANSDERMAL TD PRN (08:30)
[2022-03-19] MEDS: IBUPROFEN 600MG TAB PO PRN ×2 (08:32→19:30)
[2022-03-19] MEDS: MAALOX 30 ML SUSP *UDC PO PRN (17:20)
[2022-03-19 18:18] VITALS: BP 150/76
[2022-03-19] MEDS: QUEtiapine FUMARATE 200 MG TAB PO SCH (20:46)
[2022-03-19] MEDS: PRAZOSIN 1 MG CAP PO SCH (20:47)
[2022-03-20] MEDS: INSULIN LISPRO (NovoLOG) PER UNIT SC SCH (06:33)
[2022-03-20 06:39] VITALS: BP 158/87
[2022-03-20] MEDS ORDERED: NICO21PAT TD (08:05)
[2022-03-20] MEDS: TRIUMEQ PO SCH (08:23)
[2022-03-20] MEDS: ADVAIR HFA 115/21MCG INHALER INH SCH (08:24)
[2022-03-20 08:25] VITALS: BP 158/87
[2022-03-20] MEDS: ramipriL 5 MG CAP PO SCH (08:25)
[2022-03-20] MEDS: GABAPENTIN 400MG CAP PO SCH (08:25)
[2022-03-20] MEDS: TAMSULOSIN 0.4 MG CAP PO SCH (08:25)
[2022-03-20] MEDS: ATORVASTATIN 20 MG TAB PO SCH (08:26)
[2022-03-20] MEDS: FINASTERIDE 5MG TAB PO SCH (08:27)
[2022-03-20] MEDS: metFORMIN (GLUCOPHAGE) 500MG TAB PO SCH (08:27)
[2022-03-20] MEDS: PANTOPRAZOLE 40MG TAB (PROTONIX) PO SCH (08:27)
[2022-03-20] MEDS: buPROPion **XL** TABLET 150MG (WELLBUTRIN XL) PO SCH (08:27)
== END 2022-03-20 09:07 | disposition home or self-care (01) | DRG 753 ==
LOC: M ED 11:43 → M ED INP 03-11 13:30 → M PSY 03-11 17:34
PROVIDERS: ADMIT Psychiatry & Neurology Psychiatry; ATTEND Student in an Organized Health Care Education/Training Program
DX: F31.9 Bipolar disorder, unspecified (principal); E11.40 Type 2 diabetes mellitus with diabetic neuropathy, unspecified; R45.851 Suicidal ideations; K86.1 Other chronic pancreatitis; R63.4 Abnormal weight loss; F43.10 Post-traumatic stress disorder, unspecified; F10.10 Alcohol abuse, uncomplicated; F12.10 Cannabis abuse, uncomplicated; R75 Inconclusive laboratory evidence of human immunodeficiency virus [HIV]; I10 Essential (primary) hypertension; F41.1 Generalized anxiety disorder; J45.909 Unspecified asthma, uncomplicated; K59.00 Constipation, unspecified; E78.5 Hyperlipidemia, unspecified; K21.9 Gastro-esophageal reflux disease without esophagitis; N40.0 Benign prostatic hyperplasia without lower urinary tract symptoms; T43.215A Adverse effect of selective serotonin and norepinephrine reuptake inhibitors, initial encounter; R97.20 Elevated prostate specific antigen [PSA]; N48.33 Priapism, drug-induced; R31.29 Other microscopic hematuria; N48.6 Induration penis plastica; N52.9 Male erectile dysfunction, unspecified; R11.2 Nausea with vomiting, unspecified; F17.200 Nicotine dependence, unspecified, uncomplicated; J44.9 Chronic obstructive pulmonary disease, unspecified; Z79.84 Long term (current) use of oral hypoglycemic drugs; Z91.018 Allergy to other foods; Z79.899 Other long term (current) drug therapy; Z88.8 Allergy status to other drugs, medicaments and biological substances

== ENCOUNTER 2022-04-10 14:40 | Emergency (ER) | payer OTHER ==
[~2022-04-10] VITALS: Ht 175.3 cm; Wt 64.9 kg
[~2022-04-10 14:40] MED LIST changes: -DULE200A INH; +FINA5TAB2 PO; +MOME13HF7 INH; +NICO21PAT TD; +NYST-13 TOP; +QUET400T2 PO; +TRAZ1TAB14 PO
[2022-04-10 15:51] LABS: BASO % 0.5 % (0.0-1.0); EOS # 0.1 10^3/uL (0.0-0.5); EOS % 1.4 % (0.0-3.0); HEMATOCRIT 38.3 % (42.0-52.0); HEMOGLOBIN 13.1 g/dl (13.5-17.5); LYMPH # 1.7 10^3/uL (1.5-5.0); LYMPH % 38.9 % (24.0-44.0); MEAN CORPUSCULAR HEMOGLOBIN 32.5 pg (27.0-33.0); MEAN CORPUSCULAR HGB CONC 34.2 g/dl (32.0-36.5); MONO # 0.5 10^3/uL (0.0-0.8); MONO % 11.7 % (2.0-8.0); NEUTROPHILS % 47.3 % (36.0-66.0); PLATELET COUNT, AUTOMATED 198 10^3/uL (150-450); RED BLOOD COUNT 4.03 10^6/uL (4.30-6.10); WHITE BLOOD COUNT 4.3 10^3/uL (4.0-10.0)
[2022-04-10] MEDS ORDERED: MORPHINE 4 MG/ML 1ML VIAL/SYRINGE IV ONE (15:55)
[2022-04-10] MEDS ORDERED: ONDANSETRON 4MG 2ML VIAL IV ONE (15:55)
[2022-04-10] MEDS ORDERED: NS 1,000 ML IV ONE (15:55)
[2022-04-10] MEDS ORDERED: ISOVUE-370 76% 100ML VIAL As Ordered ONE (16:23)
[2022-04-10 16:38] LABS: ALBUMIN 3.6 GM/DL (3.2-5.2); ALT/SGPT 29 U/L (12-78); BILIRUBIN,DIRECT 0.2 MG/DL (0.0-0.2); BILIRUBIN,TOTAL 0.5 MG/DL (0.2-1.0); BLOOD UREA NITROGEN 14 MG/DL (7-18); CARBON DIOXIDE LEVEL 27 MEQ/L (21-32); CHLORIDE LEVEL 105 MEQ/L (98-107); CREATININE FOR GFR 1.29 MG/DL (0.70-1.30); GLOMERULAR FILTRATION RATE > 60.0 (>56); GLUCOSE, FASTING 126 MG/DL (70-100); LIPASE 99 U/L (73-393); POTASSIUM SERUM 4.2 MEQ/L (3.5-5.1); SODIUM LEVEL 136 MEQ/L (136-145); TOTAL PROTEIN 7.6 GM/DL (6.4-8.2)
[2022-04-10 18:49] VITALS: BP 178/86
== END 2022-04-10 18:51 | disposition home or self-care (01) ==
LOC: M ED 14:40
DX: K86.1 Other chronic pancreatitis (principal); E11.9 Type 2 diabetes mellitus without complications; E78.5 Hyperlipidemia, unspecified; I10 Essential (primary) hypertension; B20 Human immunodeficiency virus [HIV] disease; Z91.018 Allergy to other foods; Z88.8 Allergy status to other drugs, medicaments and biological substances
CPT/HCPCS: 36415; 74177; 80048; 80076; 81000; 81015; 83690; 85025; 96361; 96374; 96375; 99284; J2270; J2405; Q9967

== ENCOUNTER → 2023-04-15 | Outpatient (CLI) | payer OTHER ==
[~2023-04-15] MED LIST changes: -GABA-283 PO; +GABA-284 PO; +NYST-38 SS; -NYST50SS SS
[2023-04-15 19:08] LABS: ALBUMIN 3.5 G/DL (3.2-5.2); ALKALINE PHOSPHATASE 66 U/L (46-116); ALT/SGPT 18 U/L (7.0-40); APPEARANCE, URINE HAZY (CLEAR); AST/SGOT 14 U/L (<34); BACTERIA, URINE AUTO NEGATIVE (NEGATIVE); BILIRUBIN, URINE AUTO NEGATIVE (NEGATIVE); BILIRUBIN,TOTAL 0.2 MG/DL (0.3-1.2); BLOOD UREA NITROGEN 15 MG/DL (9-23); BLOOD, URINE BLOOD 1+ (NEGATIVE); CALCIUM LEVEL 8.9 MG/DL (8.5-10.1); CARBON DIOXIDE LEVEL 27 MMOL/L (20-31); CHLORIDE LEVEL 106 MMOL/L (98-107); CHOLESTEROL LEVEL 193 MG/DL (<200); CHOLESTEROL RISK RATIO 2.21 (<5); COLOR, URINE YELLOW (YELLOW); CREATININE FOR GFR 1.44 MG/DL (0.70-1.30); GLOMERULAR FILTRATION RATE > 60.0 (>56); GLUCOSE, FASTING 158 MG/DL (60-100); GLUCOSE, URINE (UA) AUTO NEGATIVE (NEGATIVE); KETONE, URINE AUTO TRACE mg/dL (NEGATIVE); LDL CHOLESTEROL 92.4 MG/DL (<100); LEUKOCYTE ESTERASE, URINE AUTO NEGATIVE (NEGATIVE); MUCUS, URINE SMALL (NEGATIVE); NITRITE, URINE AUTO NEGATIVE (NEGATIVE); POTASSIUM SERUM 4.2 MMOL/L (3.5-5.1); PROTEIN, URINE AUTO 2+ mg/dL (NEGATIVE); RBC, URINE AUTO 5 /HPF (0-3); SODIUM LEVEL 139 MMOL/L (136-145); SPECIFIC GRAVITY URINE AUTO 1.032 (1.002-1.035); SQUAMOUS EPITHELIAL CELL UR AU 0 /HPF (0-6); THYROID STIMULATING HORMONE 1.456 uIU/ML (0.55-4.78); TOTAL PROTEIN 6.8 G/DL (5.7-8.2); TRIGLYCERIDES LEVEL 68 MG/DL (<150); WBC, URINE AUTO 1 /HPF (0-3)
[2023-04-15 19:16] LABS: CREATININE, URINE 346.2 MG/DL; MAU/CREAT RATIO 5.4 MCG/MG (0.0-30.0)
[2023-04-15 20:17] LABS: GC DNA AMPLIFICATION NEGATIVE (NEGATIVE)
== END ==
LOC: M PLALAB 15:14
PROVIDERS: ATTEND Internal Medicine Infectious Disease
DX: B20 Human immunodeficiency virus [HIV] disease (principal); E11.9 Type 2 diabetes mellitus without complications; R97.20 Elevated prostate specific antigen [PSA]; R63.4 Abnormal weight loss

== ENCOUNTER 2023-08-11 14:28 | Emergency (ER) | payer OTHER ==
[2023-08-11] MEDS ORDERED: IPRATROPIUM 0.5MG/ALBUTEROL 2.5MG INH SOL UD 3ML (DUONEB) NEB ONE (16:05)
[2023-08-11 16:26] LABS: BASO % 0.3 % (0.0-1.0); EOS % 0.5 % (0.0-3.0); HEMATOCRIT 47.3 % (42.0-52.0); HEMOGLOBIN 17.1 g/dl (13.5-17.5); LYMPH # 1.5 10^3/uL (1.5-5.0); MEAN CORPUSCULAR HEMOGLOBIN 30.3 pg (27.0-33.0); MEAN CORPUSCULAR HGB CONC 36.2 g/dl (32.0-36.5); MEAN CORPUSCULAR VOLUME 83.9 fl (80.0-96.0); MONO # 0.3 10^3/uL (0.0-0.8); MONO % 5.1 % (2.0-8.0); NEUTROPHILS # 4.8 10^3/uL (1.5-8.5); NEUTROPHILS % 71.8 % (36.0-66.0); PLATELET COUNT, AUTOMATED 248 10^3/uL (150-450); RED BLOOD COUNT 5.64 10^6/uL (4.30-6.10); VENOUS BASE EXCESS -1.1 (-2.0-2.0); VENOUS HCO3 26.3 MMOL/L (23.0-27.0); VENOUS O2 SATURATION 48.5 % (60.0-80.0); VENOUS PARTIAL PRESSURE CO2 53.1 mmHg (38.0-50.0); VENOUS PARTIAL PRESSURE O2 26.4 mmHg (30.0-50.0); VENOUS PH 7.312 UNITS (7.330-7.430); VENOUS STANDARD HCO3 22.1 MMOL/L; VENOUS TOTAL CO2 27.9 MMOL/L (24.0-28.0); WHITE BLOOD COUNT 6.6 10^3/uL (4.0-10.0)
[2023-08-11 16:34] LABS: ERYTHROCYTE SEDIMENTATION RATE 54 mm/hr (0-20)
[2023-08-11 17:01] LABS: LIPASE 82 U/L (12-53)
[2023-08-11 17:02] LABS: ETHYL ALCOHOL (ETHANOL) < 0.003 % (0.000-0.010)
[2023-08-11 17:03] LABS: CPK CREATINE PHOSPHOKINASE 880 U/L (46-171)
[2023-08-11 17:14] LABS: ALKALINE PHOSPHATASE 140 U/L (46-116); ALT/SGPT 30 U/L (7.0-40); AST/SGOT 21 U/L (<34); BILIRUBIN,DIRECT 0.1 MG/DL (<0.4); BILIRUBIN,TOTAL 0.3 MG/DL (0.3-1.2); BLOOD UREA NITROGEN 18 MG/DL (9-23); CALCIUM LEVEL 9.8 MG/DL (8.5-10.1); CARBON DIOXIDE LEVEL 28 MMOL/L (20-31); CHLORIDE LEVEL 91 MMOL/L (98-107); CK-MB VALUE MASS 1.5 NG/ML (<3.6); CREATININE FOR GFR 1.48 MG/DL (0.70-1.30); FREE T4 0.95 NG/DL (0.89-1.76); GLOMERULAR FILTRATION RATE > 60.0 (>56); GLUCOSE, FASTING 458 MG/DL (60-100); MB/CK RELATIVE INDEX 0.17 (< OR =4); POTASSIUM SERUM 5.7 MMOL/L (3.5-5.1); SODIUM LEVEL 126 MMOL/L (136-145); THYROID STIMULATING HORMONE 1.219 uIU/ML (0.55-4.78); TOTAL PROTEIN 8.6 G/DL (5.7-8.2)
[2023-08-11] MEDS ORDERED: HumuLIN R (REGULAR) INSULIN (NovoLIN R) **100U/ML** PER UNIT IV STA (17:14)
[2023-08-11 17:18] LABS: INR 0.94; PROTHROMBIN TIME 12.3 SECONDS (12.5-14.5)
[2023-08-11] MEDS ORDERED: NS 1,000 ML IV ONE ×2 (17:35→17:40)
[2023-08-11] MEDS ORDERED: ISOVUE-370 76% 100ML VIAL As Ordered ONE (17:44)
[2023-08-11] MEDS ORDERED: PATIROMER SORBITEX CALCIUM 8.4 GM POWDER PACKET (VELTASSA) PO ONE (18:15)
[2023-08-11 18:22] LABS: ABG BASE EXCESS -2.7 (-2.0-2.0); ABG HCO3 21.1 MMOL/L (22.0-26.0); ABG O2 SATURATION 97.8 % (95.0-99.0); ABG PARTIAL PRESSURE O2 99.2 mmHg (75.0-100.0); ABG STANDARD HCO3 22.2 MMOL/L. (22.0-26.0); ABG TOTAL CO2 22.1 MMOL/L (22.0-29.0)
[2023-08-11 18:23] LABS: CK-MB VALUE MASS 1.3 NG/ML (<3.6); MB/CK RELATIVE INDEX 0.15 (< OR =4)
[2023-08-11 19:06] LABS: MAGNESIUM LEVEL 2.3 MG/DL (1.8-2.4)
[2023-08-11] MEDS ORDERED: ATORVASTATIN 20 MG TAB PO ONE (23:10)
[2023-08-11] MEDS ORDERED: NS 1,000 ML IV SCH (23:10)
[2023-08-11] MEDS ORDERED: metFORMIN (GLUCOPHAGE) 500MG TAB PO ONE (23:10)
[2023-08-11] MEDS ORDERED: GABAPENTIN 400MG CAP PO ONE (23:10)
[2023-08-11] MEDS ORDERED: KETOROLAC 30 MG/ML 1ML VIAL IV ONE (23:25)
[2023-08-12] MEDS ORDERED: HumuLIN R (REGULAR) INSULIN (NovoLIN R) **100U/ML** PER UNIT IV ONE (00:50)
[2023-08-12] MEDS ORDERED: MORPHINE 4 MG/ML 1ML VIAL IV ONE (06:45)
[2023-08-12 09:00] VITALS: BP 156/81
[2023-08-12] MEDS ORDERED: fentaNYL 100 MCG/2 ML INJECTION IV PRN (09:25)
[2023-08-12 09:45] VITALS: TEMP 98.2; O2SAT 99
== END 2023-08-12 10:12 | disposition short-term general hospital (02) ==
LOC: M ED 14:28
DX: K85.90 Acute pancreatitis without necrosis or infection, unspecified (principal); K86.89 Other specified diseases of pancreas; E87.5 Hyperkalemia; E11.9 Type 2 diabetes mellitus without complications; I10 Essential (primary) hypertension; E78.5 Hyperlipidemia, unspecified; J45.909 Unspecified asthma, uncomplicated; F17.210 Nicotine dependence, cigarettes, uncomplicated; Z88.8 Allergy status to other drugs, medicaments and biological substances; Z91.018 Allergy to other foods; Z79.899 Other long term (current) drug therapy; Z79.51 Long term (current) use of inhaled steroids; Z79.84 Long term (current) use of oral hypoglycemic drugs; Z79.1 Long term (current) use of non-steroidal anti-inflammatories (NSAID); Z79.4 Long term (current) use of insulin
CPT/HCPCS: 36600; 70450; 71045; 71275; 72125; 72148; 74177; 74181; 80048; 80076; 82077; 82550; 82553; 82803; 83690; 83735; 83880; 84439; 84443; 85025; 85610; 85652; 85730; 86140; 87486; 87581; 87633; 87798; 93005; 93041; 94760; 96361; 96374; 99285; J1815; J1885; J3010; Q9967

== ENCOUNTER 2023-09-08 11:27 | Inpatient (IN) | payer OTHER ==
[~2023-09-08] VITALS: Ht 175.3 cm; Wt 50.4 kg
[2023-09-08] VITALS (7 sets, daily range): BP systolic 110–160; BP diastolic 76–103; TEMP 96.6; O2SAT 97–100
[2023-09-08 12:42] LABS: VENOUS BASE EXCESS -1.8 (-2.0-2.0); VENOUS O2 SATURATION 53.2 % (60.0-80.0); VENOUS PARTIAL PRESSURE O2 30.7 mmHg (30.0-50.0); VENOUS PH 7.243 UNITS (7.330-7.430); VENOUS STANDARD HCO3 21.9 MMOL/L
[2023-09-08 12:45] LABS: BASO % 0.1 % (0.0-1.0); HEMATOCRIT 42.8 % (42.0-52.0); HEMOGLOBIN 14.6 g/dl (13.5-17.5); LYMPH # 0.9 10^3/uL (1.5-5.0); MEAN CORPUSCULAR HEMOGLOBIN 29.8 pg (27.0-33.0); MEAN CORPUSCULAR HGB CONC 34.1 g/dl (32.0-36.5); MEAN CORPUSCULAR VOLUME 87.3 fl (80.0-96.0); MONO # 0.4 10^3/uL (0.0-0.8); MONO % 3.9 % (2.0-8.0); NEUTROPHILS # 8.6 10^3/uL (1.5-8.5); NEUTROPHILS % 86.8 % (36.0-66.0); PLATELET COUNT, AUTOMATED 196 10^3/uL (150-450); WHITE BLOOD COUNT 9.9 10^3/uL (4.0-10.0)
[2023-09-08 13:06] LABS: CK-MB VALUE MASS 1.3 NG/ML (<3.6); LIPASE 122 U/L (12-53)
[2023-09-08 13:09] LABS: THYROID STIMULATING HORMONE 2.027 uIU/ML (0.55-4.78)
[2023-09-08 13:10] LABS: THYROXINE (T4) 4.6 UG/DL (4.5-10.9)
[2023-09-08 13:37] LABS: ALBUMIN 3.6 G/DL (3.2-5.2); ALKALINE PHOSPHATASE 110 U/L (46-116); ALT/SGPT 67 U/L (7.0-40); AST/SGOT 94 U/L (<34); BILIRUBIN,DIRECT < 0.1 MG/DL (<0.4); BILIRUBIN,TOTAL 0.2 MG/DL (0.3-1.2); BLOOD UREA NITROGEN 55 MG/DL (9-23); CALCIUM LEVEL 9.6 MG/DL (8.5-10.1); CARBON DIOXIDE LEVEL 27 MMOL/L (20-31); CHLORIDE LEVEL 91 MMOL/L (98-107); CPK CREATINE PHOSPHOKINASE 314 U/L (46-171); CREATININE FOR GFR 1.31 MG/DL (0.70-1.30); GLOMERULAR FILTRATION RATE > 60.0 (>56); GLUCOSE, FASTING 857 MG/DL (60-100); MB/CK RELATIVE INDEX 0.41 (< OR =4); POTASSIUM SERUM 6.2 MMOL/L (3.5-5.1); SODIUM LEVEL 127 MMOL/L (136-145); TOTAL PROTEIN 7.6 G/DL (5.7-8.2)
[2023-09-08] MEDS: NS 1,000 ML IV ONE ×5 (14:38→20:08)
[2023-09-08] MEDS ORDERED: INSULIN IV RATE CHANGE DOCUMENTATION ML/HR XX SCH (14:40)
[2023-09-08] MEDS ORDERED: ISOVUE-370 76% 100ML VIAL As Ordered ONE (14:47)
[2023-09-08 14:57] LABS: ABG BASE EXCESS -2.1 (-2.0-2.0); ABG HCO3 23.4 MMOL/L (22.0-26.0); ABG O2 SATURATION 96.6 % (95.0-99.0); ABG PARTIAL PRESSURE CO2 42.4 mmHg (35.0-45.0); ABG STANDARD HCO3 22.7 MMOL/L. (22.0-26.0); ABG TOTAL CO2 24.7 MMOL/L (22.0-29.0); ABG pH (ARTERIAL) 7.359 UNITS (7.350-7.450)
[2023-09-08 15:03] LABS: CK-MB VALUE MASS < 1.0 NG/ML (<3.6)
[2023-09-08 15:05] LABS: CPK CREATINE PHOSPHOKINASE 270 U/L (46-171); MB/CK RELATIVE INDEX 0.37 (< OR =4)
[2023-09-08] MEDS: INSULIN REGULAR IN 0.9 % NACL 100 UNIT in IV 1 EA IV SCH (16:26)
[2023-09-08] MEDS: HumuLIN R (REGULAR) INSULIN (NovoLIN R) **100U/ML** PER UNIT IV STA ×2 (17:40→20:28)
[2023-09-08] MEDS: cefTRIAXone SOD 2 GM in D5W MINI-BAG PLUS 50 ML IV ONE (17:40)
[2023-09-08] MEDS ORDERED: MOM 30ML SUSPENSION UDC PO PRN (18:05)
[2023-09-08] MEDS ORDERED: ACETAMINOPHEN TAB 650MG DOSE (2X325MG) PO PRN (18:05)
[2023-09-08] MEDS ORDERED: VANCOMYCIN HCL 750 MG in IV FLUID PLACE HOLDER 1 EA IV SCH (18:15)
[2023-09-08] MEDS ORDERED: GLUCAGON INJ 1MG VIAL SC PRN (18:15)
[2023-09-08] MEDS ORDERED: GLUCOSE 4GM CHEW TABLET PO PRN (18:15)
[2023-09-08] MEDS: DOXYCYCLINE HYCLATE 100MG TABLET PO ONE (18:29)
[2023-09-08 18:43] LABS: MAGNESIUM LEVEL 2.6 MG/DL (1.8-2.4); PHOSPHORUS LEVEL 4.9 MG/DL (2.5-4.9)
[2023-09-08] MEDS: PATIROMER SORBITEX CALCIUM 8.4 GM POWDER PACKET (VELTASSA) PO ONE (18:45)
[2023-09-08 18:46] LABS: PROCALCITONIN 0.23 ng/ml
[2023-09-08] MEDS ORDERED: ASPI1CHW2 PO (19:26)
[2023-09-08] MEDS ORDERED: MED REC COMMENT (19:30)
[2023-09-08] MEDS ORDERED: HOME MED LIST COMPLETE! XX SCH (19:30)
[2023-09-08] MEDS: THIAMINE 100 MG TAB PO SCH (20:07)
[2023-09-08] MEDS: VANCOMYCIN HCL 1,000 MG, VIAL MATE ADAPTER 1 EACH in D5W 250 ML IV ONE (20:07)
[2023-09-08] MEDS: FOLIC ACID 1MG TAB PO SCH (20:07)
[2023-09-08] MEDS: DOCUSATE SODIUM 100MG CAPSULE PO SCH (20:28)
[2023-09-08] MEDS: MULTIVITAMINS/MINERALS THERAP 1 TAB PO SCH (20:28)
[2023-09-08] MEDS: INSULIN LISPRO (NovoLOG) PER UNIT SC SCH ×2 (20:31→20:32)
[2023-09-08] MEDS: NS 1,000 ML IV SCH (21:52)
[2023-09-08] MEDS: PANTOPRAZOLE 40MG VIAL IV SCH (22:06)
[2023-09-08] MEDS: LEVEMIR (INSULIN DETEMIR) 1 UNITS/0.01ML SC SCH (22:06)
[2023-09-08] MEDS: LORazepam 2 MG TAB PO PRN (23:27)
[2023-09-08] MEDS: PIPERACILLIN/TAZOBACTAM SOD 3.375 GM in D5W MINI-BAG PLUS 50 ML IV SCH (23:28)
[2023-09-08 23:57] LABS: INR 0.91
[2023-09-09] VITALS (28 sets, daily range): BP systolic 100–160; BP diastolic 56–98; TEMP 97.4–98; O2SAT 95–99
[2023-09-09 00:29] LABS: BLOOD UREA NITROGEN 33 MG/DL (9-23); CALCIUM LEVEL 8.5 MG/DL (8.5-10.1); CARBON DIOXIDE LEVEL 27 MMOL/L (20-31); CHLORIDE LEVEL 102 MMOL/L (98-107); CREATININE FOR GFR 0.96 MG/DL (0.70-1.30); GLOMERULAR FILTRATION RATE > 60.0 (>56); GLUCOSE, FASTING 314 MG/DL (60-100); PHOSPHORUS LEVEL 2.4 MG/DL (2.5-4.9); POTASSIUM SERUM 4.1 MMOL/L (3.5-5.1); SODIUM LEVEL 136 MMOL/L (136-145)
[2023-09-09] MEDS: LORazepam 2 MG/ML 1ML VIAL IV PRN (02:55)
[2023-09-09] MEDS: D5W/0.45% SODIUM CHLORIDE 1,000 ML IV SCH (04:50)
[2023-09-09 06:06] LABS: ALKALINE PHOSPHATASE 82 U/L (46-116); ALT/SGPT 48 U/L (7.0-40); AST/SGOT 39 U/L (<34); BILIRUBIN,DIRECT 0.1 MG/DL (<0.4); BILIRUBIN,TOTAL 0.4 MG/DL (0.3-1.2); BLOOD UREA NITROGEN 26 MG/DL (9-23); CALCIUM LEVEL 8.7 MG/DL (8.5-10.1); CARBON DIOXIDE LEVEL 32 MMOL/L (20-31); CHLORIDE LEVEL 108 MMOL/L (98-107); CREATININE FOR GFR 0.87 MG/DL (0.70-1.30); GLOMERULAR FILTRATION RATE > 60.0 (>56); GLUCOSE, FASTING 66 MG/DL (60-100); MAGNESIUM LEVEL 1.9 MG/DL (1.8-2.4); PHOSPHORUS LEVEL 2.1 MG/DL (2.5-4.9); POTASSIUM SERUM 4.2 MMOL/L (3.5-5.1); SODIUM LEVEL 143 MMOL/L (136-145); TOTAL PROTEIN 6.4 G/DL (5.7-8.2)
[2023-09-09 06:12] LABS: HEMOGLOBIN A1c > 14.0 % (4.0-6.0)
[2023-09-09 06:39] LABS: BASO % 0.1 % (0.0-1.0); EOS # 0.1 10^3/uL (0.0-0.5); EOS % 0.5 % (0.0-3.0); HEMATOCRIT 36.4 % (42.0-52.0); HEMOGLOBIN 13.1 g/dl (13.5-17.5); LYMPH # 1.5 10^3/uL (1.5-5.0); LYMPH % 13.4 % (24.0-44.0); MEAN CORPUSCULAR HEMOGLOBIN 30.6 pg (27.0-33.0); MONO # 0.6 10^3/uL (0.0-0.8); MONO % 5.3 % (2.0-8.0); NEUTROPHILS # 8.9 10^3/uL (1.5-8.5); NEUTROPHILS % 80.4 % (36.0-66.0); PLATELET COUNT, AUTOMATED 203 10^3/uL (150-450); RED BLOOD COUNT 4.28 10^6/uL (4.30-6.10); WHITE BLOOD COUNT 11.1 10^3/uL (4.0-10.0)
[2023-09-09] MEDS ORDERED: VANCOMYCIN HCL 500 MG in D5W MINI-BAG PLUS 100 ML IV SCH (08:00)
[2023-09-09 08:54] LABS: VANCOMYCIN RANDOM 7.5 UG/ML
[2023-09-09] MEDS: HEPARIN SOD (PORCINE) 5000UNITS/ML 1ML VIAL/SYRINGE SC SCH (09:47)
[2023-09-09] MEDS: VANCOMYCIN HCL 750 MG, VIAL MATE ADAPTER 1 EACH in D5W 250 ML IV SCH (09:48)
[2023-09-09 13:03] LABS: LDH LACTATE DEHYDROGENASE 231 U/L (120-246)
[2023-09-09 23:20] LABS: HEPATITIS B SURFACE ANTIBODY NEGATIVE (POSITIVE)
[2023-09-09 23:53] LABS: HEPATITIS C VIRUS ABY INDEX < 0.02 INDEX (<0.8)
[2023-09-10] VITALS (12 sets, daily range): BP systolic 112–140; BP diastolic 78–96; TEMP 96.5–98.1; O2SAT 96–100
[2023-09-10 00:45] LABS: Trichomonas vaginalis (AMP) NOT DETECTED (NEGATIVE)
[2023-09-10 01:08] LABS: GC DNA AMPLIFICATION NEGATIVE (NEGATIVE)
[2023-09-10] MEDS: DEXTROSE 50% 50ML SYRINGE IV PRN (05:45)
[2023-09-10 09:09] LABS: BASO % 0.2 % (0.0-1.0); EOS # 0.1 10^3/uL (0.0-0.5); HEMATOCRIT 40.8 % (42.0-52.0); HEMOGLOBIN 13.8 g/dl (13.5-17.5); LYMPH # 1.6 10^3/uL (1.5-5.0); LYMPH % 19.3 % (24.0-44.0); MEAN CORPUSCULAR HEMOGLOBIN 29.5 pg (27.0-33.0); MEAN CORPUSCULAR HGB CONC 33.8 g/dl (32.0-36.5); MEAN CORPUSCULAR VOLUME 87.2 fl (80.0-96.0); MONO # 0.8 10^3/uL (0.0-0.8); NEUTROPHILS # 5.9 10^3/uL (1.5-8.5); NEUTROPHILS % 70.3 % (36.0-66.0); PLATELET COUNT, AUTOMATED 151 10^3/uL (150-450); RED BLOOD COUNT 4.68 10^6/uL (4.30-6.10); WHITE BLOOD COUNT 8.4 10^3/uL (4.0-10.0)
[2023-09-10 09:35] LABS: BLOOD UREA NITROGEN 14 MG/DL (9-23); CALCIUM LEVEL 8.4 MG/DL (8.5-10.1); CARBON DIOXIDE LEVEL 31 MMOL/L (20-31); CHLORIDE LEVEL 106 MMOL/L (98-107); CREATININE FOR GFR 0.74 MG/DL (0.70-1.30); GLOMERULAR FILTRATION RATE > 60.0 (>56); GLUCOSE, FASTING 121 MG/DL (60-100); MAGNESIUM LEVEL 1.9 MG/DL (1.8-2.4); POTASSIUM SERUM 3.3 MMOL/L (3.5-5.1); SODIUM LEVEL 140 MMOL/L (136-145)
[2023-09-10] MEDS: DOXYCYCLINE HYCLATE 100 MG in D5W MINI-BAG PLUS 100 ML IV SCH (10:26)
[2023-09-10] MEDS: KCL 10MEQ/100ML SWI (KRUN) 10 MEQ in IV 1 EA IV SCH (11:40)
[2023-09-10 14:12] LABS: % CD8 Pos Lymph 16.5 % (12.0-35.5); %CD4 Pos Lymphs 61.2 % (30.8-58.5); ABS Lymphs 1.2 x10E3/uL (0.7-3.1); ABS Monocytes 0.5 x10E3/uL (0.1-0.9); ABS Neutophils 9.2 x10E3/uL (1.4-7.0); Abs CD4 Helper 734 /uL (359-1519); Abs CD8 Suppres 198 /uL (109-897); CD4/CD8 Ratio 3.71 (0.92-3.72); Eosinophils 0 % (Not Estab.); HCT 39.3 % (37.5-51.0); HGB 13.9 g/dL (13.0-17.7); Immature Grans 0 % (Not Estab.); Lymphocytes 11 % (Not Estab.); MCH 30.5 pg (26.6-33.0); MCHC 35.4 g/dL (31.5-35.7); MCV 86 fL (79-97); Monocytes 5 % (Not Estab.); Neutrophils 84 % (Not Estab.); Platelets 228 x10E3/uL (150-450); RBC 4.55 x10E6/uL (4.14-5.80); WBC 11.1 x10E3/uL (3.4-10.8)
[2023-09-10] MEDS: SODIUM CHLORIDE 0.9% INJ 10 ML SYR IV SCH (17:17)
[2023-09-10] MEDS ORDERED: LEVEMIR (INSULIN DETEMIR) 1 UNITS/0.01ML SC SCH (21:00)
[2023-09-11 00:04] VITALS: BP 136/92; TEMP 97.5; O2SAT 98
[2023-09-11 04:00] VITALS: BP 115/87; TEMP 96.5; O2SAT 97
[2023-09-11 05:39] LABS: BASO % 0.4 % (0.0-1.0); EOS # 0.1 10^3/uL (0.0-0.5); EOS % 1.5 % (0.0-3.0); HEMATOCRIT 39.5 % (42.0-52.0); HEMOGLOBIN 13.7 g/dl (13.5-17.5); LYMPH # 1.7 10^3/uL (1.5-5.0); LYMPH % 35.2 % (24.0-44.0); MEAN CORPUSCULAR HGB CONC 34.7 g/dl (32.0-36.5); MEAN CORPUSCULAR VOLUME 86.6 fl (80.0-96.0); MONO # 0.4 10^3/uL (0.0-0.8); MONO % 8.3 % (2.0-8.0); NEUTROPHILS # 2.6 10^3/uL (1.5-8.5); NEUTROPHILS % 54.4 % (36.0-66.0); PLATELET COUNT, AUTOMATED 152 10^3/uL (150-450); RED BLOOD COUNT 4.56 10^6/uL (4.30-6.10); WHITE BLOOD COUNT 4.7 10^3/uL (4.0-10.0)
[2023-09-11 05:57] LABS: BLOOD UREA NITROGEN 12 MG/DL (9-23); CALCIUM LEVEL 7.8 MG/DL (8.5-10.1); CARBON DIOXIDE LEVEL 30 MMOL/L (20-31); CHLORIDE LEVEL 105 MMOL/L (98-107); GLOMERULAR FILTRATION RATE > 60.0 (>56); GLUCOSE, FASTING 192 MG/DL (60-100); MAGNESIUM LEVEL 1.7 MG/DL (1.8-2.4); POTASSIUM SERUM 3.4 MMOL/L (3.5-5.1); SODIUM LEVEL 137 MMOL/L (136-145)
[2023-09-11] MEDS ORDERED: FLUCONAZOLE 200 MG in IV 1 EA IV ONE (07:15)
[2023-09-11 07:36] VITALS: BP 142/87; TEMP 97; O2SAT 100
[2023-09-11] MEDS: KCL 10MEQ/100ML SWI (KRUN) 10 MEQ in IV 1 EA IV SCH (08:07)
[2023-09-11 10:00] VITALS: BP 100/74; TEMP 97.9; O2SAT 97
[2023-09-11] MEDS: FLUCONAZOLE 200 MG in IV 1 EA IV SCH (10:18)
[2023-09-11] MEDS: MAG SULF 1GM/100ML (MAG RUN) 1 GM in IV 1 EA IV ONE (12:50)
[2023-09-11 15:30] VITALS: BP 100/60; TEMP 97.6; O2SAT 98
[2023-09-11 17:04] LABS: BLOOD UREA NITROGEN 15 MG/DL (9-23); CALCIUM LEVEL 7.9 MG/DL (8.5-10.1); CARBON DIOXIDE LEVEL 25 MMOL/L (20-31); CHLORIDE LEVEL 102 MMOL/L (98-107); GLOMERULAR FILTRATION RATE > 60.0 (>56); GLUCOSE, FASTING 466 MG/DL (60-100); POTASSIUM SERUM 4.2 MMOL/L (3.5-5.1); SODIUM LEVEL 130 MMOL/L (136-145)
[2023-09-11] MEDS: HumuLIN R (REGULAR) INSULIN (NovoLIN R) **100U/ML** PER UNIT IV STA (17:56)
[2023-09-11 20:03] VITALS: BP 136/66; TEMP 97.2; O2SAT 100
[2023-09-12 00:12] VITALS: BP 116/71; TEMP 97.4; O2SAT 100
[2023-09-12 04:00] VITALS: BP 131/76; TEMP 98.1; O2SAT 98
[2023-09-12 05:46] LABS: BASO % 0.2 % (0.0-1.0); EOS # 0.1 10^3/uL (0.0-0.5); EOS % 1.3 % (0.0-3.0); HEMATOCRIT 34.9 % (42.0-52.0); HEMOGLOBIN 12.2 g/dl (13.5-17.5); LYMPH # 1.8 10^3/uL (1.5-5.0); LYMPH % 33.8 % (24.0-44.0); MEAN CORPUSCULAR VOLUME 85.7 fl (80.0-96.0); MONO # 0.5 10^3/uL (0.0-0.8); MONO % 9.4 % (2.0-8.0); NEUTROPHILS % 55.1 % (36.0-66.0); PLATELET COUNT, AUTOMATED 160 10^3/uL (150-450); RED BLOOD COUNT 4.07 10^6/uL (4.30-6.10); WHITE BLOOD COUNT 5.5 10^3/uL (4.0-10.0)
[2023-09-12 06:08] LABS: BLOOD UREA NITROGEN 11 MG/DL (9-23); CALCIUM LEVEL 7.8 MG/DL (8.5-10.1); CARBON DIOXIDE LEVEL 25 MMOL/L (20-31); CHLORIDE LEVEL 107 MMOL/L (98-107); CREATININE FOR GFR 0.74 MG/DL (0.70-1.30); GLOMERULAR FILTRATION RATE > 60.0 (>56); GLUCOSE, FASTING 261 MG/DL (60-100); MAGNESIUM LEVEL 1.7 MG/DL (1.8-2.4); POTASSIUM SERUM 3.9 MMOL/L (3.5-5.1); SODIUM LEVEL 136 MMOL/L (136-145)
[2023-09-12 07:41] VITALS: BP 136/87; TEMP 98.1; O2SAT 99
[2023-09-12] MEDS: INSULIN LISPRO (NovoLOG) PER UNIT SC SCH ×2 (08:59→17:50)
[2023-09-12] MEDS: MAGNESIUM OXIDE 400MG TAB (MAG-OX) PO SCH (09:00)
[2023-09-12] MEDS ORDERED: FLUCONAZOLE 100 MG in IV 1 EA IV SCH (09:00)
[2023-09-12 11:21] LABS: PROCALCITONIN 0.13 ng/ml
[2023-09-12] MEDS: ASPIRIN 325 MG TAB PO STA (11:43)
[2023-09-12 15:08] LABS: BODY FLUID CULTURE Not indicated. (.); LEGIONELLA ANTIGEN URINE Negative (Negative); ORGANISM ID Not indicated. (.); SPECIMEN SOURCE Urine (.); URINE STREP PNEUMONIAE ANTIGEN Negative (Negative)
[2023-09-12 16:14] VITALS: BP 127/70; TEMP 97.8; O2SAT 98
[2023-09-12] MEDS: HumuLIN R (REGULAR) INSULIN (NovoLIN R) **100U/ML** PER UNIT IV STA (17:50)
[2023-09-12 19:45] VITALS: BP 142/85; TEMP 98.3; O2SAT 100
[2023-09-12] MEDS: DOXYCYCLINE HYCLATE 100MG TABLET PO SCH (20:12)
[2023-09-12] MEDS: CEFDINIR 300 MG CAP (OMNICEF) PO SCH (20:12)
[2023-09-12] MEDS: SODIUM CHLORIDE 0.9% INJ 10 ML SYR IV PRN (20:13)
[2023-09-12] MEDS: UNRESOLVED PATIENT OWN MED ORDER XX SCH (21:28)
[2023-09-13] VITALS: BP 127/78; TEMP 98.5; O2SAT 99
[2023-09-13 04:00] VITALS: BP 135/74; TEMP 98.7; O2SAT 100
[2023-09-13 07:24] LABS: BLOOD UREA NITROGEN 9 MG/DL (9-23); CALCIUM LEVEL 8.1 MG/DL (8.5-10.1); CARBON DIOXIDE LEVEL 28 MMOL/L (20-31); CHLORIDE LEVEL 104 MMOL/L (98-107); CREATININE FOR GFR 0.67 MG/DL (0.70-1.30); GLOMERULAR FILTRATION RATE > 60.0 (>56); GLUCOSE, FASTING 198 MG/DL (60-100); MAGNESIUM LEVEL 1.6 MG/DL (1.8-2.4); POTASSIUM SERUM 3.9 MMOL/L (3.5-5.1); SODIUM LEVEL 136 MMOL/L (136-145)
[2023-09-13 08:00] VITALS: BP 134/78; TEMP 97.5; O2SAT 93
[2023-09-13] MEDS: FLUCONAZOLE 100 MG TAB PO SCH (08:42)
[2023-09-13] MEDS ORDERED: MUPI2OI TOP (09:53)
[2023-09-13] MEDS ORDERED: MAGN400T2 PO (09:53)
[2023-09-13] MEDS ORDERED: DOXY100T PO (09:53)
[2023-09-13] MEDS ORDERED: CEFD300CAP PO (09:53)
[2023-09-13] MEDS ORDERED: FLUC100T3 PO (09:53)
[2023-09-13] MEDS ORDERED: ADME100I2 SC (09:53)
[2023-09-13] MEDS ORDERED: FREE1KIT5 XX (09:55)
[2023-09-13] MEDS ORDERED: PEN1MIS15 SC (09:55)
[2023-09-13] MEDS: MUPIROCIN 2% OINT 22 GM TUBE TOP SCH (10:06)
[2023-09-13] MEDS: INFLUENZA QUADRIVALENT PF VACCINE 0.5ML SYRINGE IM.IMMUN ONE (10:07)
[2023-09-13] MEDS ORDERED: INSULIN LISPRO (NovoLOG) PER UNIT SC SCH ×2 (12:00→21:00)
== END 2023-09-13 11:12 | disposition home or self-care (01) | DRG 420 ==
LOC: M ED 11:27 → M ED INP 18:04 → ENRESERV 18:35 → M ICU 21:30 → M PCU 09-10 14:01
PROVIDERS: ADMIT Student in an Organized Health Care Education/Training Program; ATTEND Student in an Organized Health Care Education/Training Program
DX: E11.00 Type 2 diabetes mellitus with hyperosmolarity without nonketotic hyperglycemic-hyperosmolar coma (NKHHC) (principal); E43 Unspecified severe protein-calorie malnutrition; G93.41 Metabolic encephalopathy; J18.9 Pneumonia, unspecified organism; N17.9 Acute kidney failure, unspecified; R64 Cachexia; B20 Human immunodeficiency virus [HIV] disease; E11.22 Type 2 diabetes mellitus with diabetic chronic kidney disease; N18.30 Chronic kidney disease, stage 3 unspecified; K86.0 Alcohol-induced chronic pancreatitis; E87.5 Hyperkalemia; I12.9 Hypertensive chronic kidney disease with stage 1 through stage 4 chronic kidney disease, or unspecified chronic kidney disease; F31.9 Bipolar disorder, unspecified; K21.9 Gastro-esophageal reflux disease without esophagitis; E78.5 Hyperlipidemia, unspecified; J45.909 Unspecified asthma, uncomplicated; F19.90 Other psychoactive substance use, unspecified, uncomplicated; E86.0 Dehydration; R74.01 Elevation of levels of liver transaminase levels; E87.1 Hypo-osmolality and hyponatremia; F10.90 Alcohol use, unspecified, uncomplicated; N40.0 Benign prostatic hyperplasia without lower urinary tract symptoms; G47.00 Insomnia, unspecified; Z79.4 Long term (current) use of insulin; Z79.84 Long term (current) use of oral hypoglycemic drugs; Z79.899 Other long term (current) drug therapy; Z91.018 Allergy to other foods; Z88.8 Allergy status to other drugs, medicaments and biological substances; Z20.822 Contact with and (suspected) exposure to COVID-19

== ENCOUNTER 2023-10-14 11:45 | Inpatient (IN) | payer MEDICAID, OTHER ==
[~2023-10-14] VITALS: Ht 175.3 cm; Wt 52.3 kg
[~2023-10-14 11:45] MED LIST changes: +ASPI1CHW2 PO; +CEFD300CAP PO; +DOXY100T PO; +FLUC100T3 PO; +FREE1KIT5 XX; +MAGN400T2 PO; +MED REC COMMENT; +MUPI2OI TOP; +PEN1MIS15 SC
[2023-10-14 12:24] LABS: BASO % 0.5 % (0.0-1.0); EOS % 0.2 % (0.0-3.0); HEMATOCRIT 39.7 % (42.0-52.0); HEMOGLOBIN 13.2 g/dl (13.5-17.5); LYMPH # 1.2 10^3/uL (1.5-5.0); LYMPH % 29.6 % (24.0-44.0); MEAN CORPUSCULAR HEMOGLOBIN 31.3 pg (27.0-33.0); MEAN CORPUSCULAR HGB CONC 33.2 g/dl (32.0-36.5); MEAN CORPUSCULAR VOLUME 94.1 fl (80.0-96.0); MONO # 0.3 10^3/uL (0.0-0.8); MONO % 7.2 % (2.0-8.0); NEUTROPHILS # 2.5 10^3/uL (1.5-8.5); NEUTROPHILS % 62.3 % (36.0-66.0); PLATELET COUNT, AUTOMATED 293 10^3/uL (150-450); RED BLOOD COUNT 4.22 10^6/uL (4.30-6.10)
[2023-10-14] MEDS: NS 1,000 ML IV ONE ×3 (12:34→17:59)
[2023-10-14 12:37] LABS: VENOUS O2 SATURATION 91.3 % (60.0-80.0); VENOUS PARTIAL PRESSURE CO2 53.7 mmHg (38.0-50.0); VENOUS PARTIAL PRESSURE O2 60.5 mmHg (30.0-50.0); VENOUS PH 7.319 UNITS (7.330-7.430); VENOUS STANDARD HCO3 24.4 MMOL/L; VENOUS TOTAL CO2 28.6 MMOL/L (24.0-28.0)
[2023-10-14 12:47] LABS: ACETONE/KETONE 0.65 MMOL/L (0.02-0.27)
[2023-10-14 13:10] LABS: LIPASE 83 U/L (12-53)
[2023-10-14 13:15] LABS: ALBUMIN 3.4 G/DL (3.2-5.2); ALKALINE PHOSPHATASE 76 U/L (46-116); ALT/SGPT 50 U/L (7.0-40); AST/SGOT 35 U/L (<34); BILIRUBIN,DIRECT 0.1 MG/DL (<0.4); BILIRUBIN,TOTAL 0.3 MG/DL (0.3-1.2); BLOOD UREA NITROGEN 11 MG/DL (9-23); CALCIUM LEVEL 8.8 MG/DL (8.5-10.1); CARBON DIOXIDE LEVEL 28 MMOL/L (20-31); CHLORIDE LEVEL 84 MMOL/L (98-107); CREATININE FOR GFR 0.66 MG/DL (0.70-1.30); GLOMERULAR FILTRATION RATE > 60.0 (>56); POTASSIUM SERUM 5.3 MMOL/L (3.5-5.1); SODIUM LEVEL 117 MMOL/L (136-145); TOTAL PROTEIN 6.9 G/DL (5.7-8.2)
[2023-10-14 13:17] LABS: GLUCOSE, FASTING 1107 MG/DL (60-100)
[2023-10-14 13:22] LABS: HEMOGLOBIN A1c > 14.0 % (4.0-6.0)
[2023-10-14] MEDS ORDERED: INSULIN REGULAR IN 0.9 % NACL 100 UNIT in IV 1 EA IV SCH ×2 (13:25→16:25)
[2023-10-14] MEDS ORDERED: INSULIN IV RATE CHANGE DOCUMENTATION ML/HR XX SCH ×2 (13:25→16:25)
[2023-10-14] MEDS: HumuLIN R (REGULAR) INSULIN (NovoLIN R) **100U/ML** PER UNIT IV ONE (13:54)
[2023-10-14] MEDS ORDERED: ADME100I2 SC (14:38)
[2023-10-14] MEDS ORDERED: HOME MED LIST COMPLETE! XX SCH (14:40)
[2023-10-14 16:45] VITALS: BP 135/76; TEMP 96.6; O2SAT 100
[2023-10-14 17:43] LABS: BLOOD UREA NITROGEN 15 MG/DL (9-23); CALCIUM LEVEL 8.8 MG/DL (8.5-10.1); CARBON DIOXIDE LEVEL 26 MMOL/L (20-31); CHLORIDE LEVEL 97 MMOL/L (98-107); CREATININE FOR GFR 0.65 MG/DL (0.70-1.30); GLOMERULAR FILTRATION RATE > 60.0 (>56); GLUCOSE, FASTING 538 MG/DL (60-100); POTASSIUM SERUM 4.2 MMOL/L (3.5-5.1); SODIUM LEVEL 128 MMOL/L (136-145)
[2023-10-14] MEDS ORDERED: GLUCAGON INJ 1MG VIAL SC PRN (17:45)
[2023-10-14] MEDS ORDERED: GLUCOSE 4GM CHEW TABLET PO PRN (17:45)
[2023-10-14] MEDS ORDERED: DEXTROSE 50% 50ML SYRINGE IV PRN (17:45)
[2023-10-14 18:00] VITALS: BP 163/93; O2SAT 100
[2023-10-14] MEDS ORDERED: ALBUTEROL 90 MCG/ACT 8GM HFA INHALER INH PRN (18:30)
[2023-10-14] MEDS: INSULIN LISPRO (NovoLOG) PER UNIT SC SCH ×2 (18:53→20:21)
[2023-10-14] MEDS: COMBIVENT RESPIMAT 100-20MCG INHALER 4GM INH SCH (19:52)
[2023-10-14 20:00] VITALS: BP 145/81; TEMP 97.3; O2SAT 100
[2023-10-14] MEDS: cloNIDine 0.1MG TABLET PO SCH (20:11)
[2023-10-14] MEDS: TAMSULOSIN 0.4 MG CAP PO SCH (20:12)
[2023-10-14] MEDS: GABAPENTIN 400MG CAP PO SCH (20:12)
[2023-10-14] MEDS: LEVEMIR (INSULIN DETEMIR) 1 UNITS/0.01ML SC SCH (20:21)
[2023-10-14 22:02] LABS: BLOOD UREA NITROGEN 7 MG/DL (9-23); CALCIUM LEVEL 8.4 MG/DL (8.5-10.1); CARBON DIOXIDE LEVEL 24 MMOL/L (20-31); CHLORIDE LEVEL 101 MMOL/L (98-107); CREATININE FOR GFR 0.69 MG/DL (0.70-1.30); GLOMERULAR FILTRATION RATE > 60.0 (>56); GLUCOSE, FASTING 422 MG/DL (60-100); SODIUM LEVEL 131 MMOL/L (136-145)
[2023-10-15] VITALS: BP 129/68; TEMP 97.9; O2SAT 90
[2023-10-15 04:00] VITALS: BP 114/81; TEMP 98.3; O2SAT 100
[2023-10-15 05:30] LABS: CK-MB VALUE MASS 1.5 NG/ML (<3.6)
[2023-10-15 05:31] LABS: BLOOD UREA NITROGEN 10 MG/DL (9-23); CALCIUM LEVEL 8.2 MG/DL (8.5-10.1); CARBON DIOXIDE LEVEL 30 MMOL/L (20-31); CHLORIDE LEVEL 101 MMOL/L (98-107); CREATININE FOR GFR 0.58 MG/DL (0.70-1.30); GLOMERULAR FILTRATION RATE > 60.0 (>56); GLUCOSE, FASTING 246 MG/DL (60-100); MAGNESIUM LEVEL 1.7 MG/DL (1.8-2.4); PHOSPHORUS LEVEL 2.7 MG/DL (2.5-4.9); POTASSIUM SERUM 3.6 MMOL/L (3.5-5.1); SODIUM LEVEL 134 MMOL/L (136-145)
[2023-10-15 05:37] LABS: MB/CK RELATIVE INDEX 1.7 (< OR =4)
[2023-10-15] MEDS: MAGNESIUM OXIDE 400MG TAB (MAG-OX) PO ONE (06:34)
[2023-10-15] MEDS ORDERED: COMBIVENT RESPIMAT 100-20MCG INHALER 4GM INH PRN (07:35)
[2023-10-15 07:48] VITALS: BP 162/95; TEMP 98.1; O2SAT 99
[2023-10-15] MEDS: MAG SULF 1GM/100ML (MAG RUN) 1 GM in IV 1 EA IV ONE (08:20)
[2023-10-15] MEDS: ramipriL 5 MG CAP PO SCH (08:21)
[2023-10-15] MEDS: ENOXAPARIN 40MG/0.4ML SYRINGE (J1650 PER 10MG) SC SCH (08:22)
[2023-10-15] MEDS: FOLIC ACID 1MG TAB PO SCH (08:22)
[2023-10-15] MEDS: buPROPion **XL** TABLET 150MG (WELLBUTRIN XL) PO SCH (08:22)
[2023-10-15] MEDS: ASPIRIN 81MG CHEW TABLET PO SCH (08:22)
[2023-10-15] MEDS: ATORVASTATIN 20 MG TAB PO SCH (08:22)
[2023-10-15 11:51] VITALS: BP 129/76; TEMP 97.8; O2SAT 100
[2023-10-15] MEDS: TIOTROPIUM INHALER/CAPSULE (SPIRIVA) INH SCH (13:55)
[2023-10-15] MEDS: SYMBICORT 160/4.5MCG INHALER 6GM INH SCH (13:55)
[2023-10-15] MEDS: PREGABALIN 100 MG CAP (LYRICA) PO SCH (17:28)
[2023-10-15] MEDS: LEVEMIR (INSULIN DETEMIR) 1 UNITS/0.01ML SC ONE (18:36)
[2023-10-15] MEDS: INSULIN LISPRO (NovoLOG) PER UNIT SC SCH (18:36)
[2023-10-15 18:59] VITALS: BP 124/68; TEMP 98.1; O2SAT 100
[2023-10-15 20:21] VITALS: BP 133/72; TEMP 98.1; O2SAT 100
[2023-10-15] MEDS: SENNA 8.6 MG TAB (SENOKOT) PO PRN (20:22)
[2023-10-16 04:49] VITALS: BP 131/74; TEMP 97.7; O2SAT 99
[2023-10-16 06:35] LABS: BASO % 0.2 % (0.0-1.0); HEMATOCRIT 31.4 % (42.0-52.0); LYMPH # 1.9 10^3/uL (1.5-5.0); MEAN CORPUSCULAR HGB CONC 34.7 g/dl (32.0-36.5); MEAN CORPUSCULAR VOLUME 89.2 fl (80.0-96.0); MONO # 0.4 10^3/uL (0.0-0.8); MONO % 8.2 % (2.0-8.0); NEUTROPHILS % 55.2 % (36.0-66.0); PLATELET COUNT, AUTOMATED 244 10^3/uL (150-450); RED BLOOD COUNT 3.52 10^6/uL (4.30-6.10); WHITE BLOOD COUNT 5.4 10^3/uL (4.0-10.0)
[2023-10-16 06:36] LABS: HEMOGLOBIN 10.9 g/dl (13.5-17.5)
[2023-10-16 06:45] LABS: BLOOD UREA NITROGEN 9 MG/DL (9-23); CALCIUM LEVEL 8.3 MG/DL (8.5-10.1); CARBON DIOXIDE LEVEL 31 MMOL/L (20-31); CHLORIDE LEVEL 98 MMOL/L (98-107); CREATININE FOR GFR 0.62 MG/DL (0.70-1.30); GLOMERULAR FILTRATION RATE > 60.0 (>56); GLUCOSE, FASTING 382 MG/DL (60-100); MAGNESIUM LEVEL 1.7 MG/DL (1.8-2.4); POTASSIUM SERUM 3.9 MMOL/L (3.5-5.1); SODIUM LEVEL 131 MMOL/L (136-145)
[2023-10-16] MEDS: PANTOPRAZOLE 40MG TAB (PROTONIX) PO SCH (08:10)
[2023-10-16] MEDS: metFORMIN (GLUCOPHAGE) 500MG TAB PO SCH (08:10)
[2023-10-16 08:12] VITALS: BP 140/77
[2023-10-16] MEDS: LEVEMIR (INSULIN DETEMIR) 1 UNITS/0.01ML SC SCH (08:14)
[2023-10-16] MEDS: MAG SULF 1GM/100ML (MAG RUN) 1 GM in IV 1 EA IV ONE (08:15)
[2023-10-16] MEDS ORDERED: LANC30MI XX (08:58)
[2023-10-16] MEDS ORDERED: BLOOKIT21 XX (08:58)
[2023-10-16] MEDS ORDERED: ALCOPAD25 TOP (08:58)
[2023-10-16] MEDS ORDERED: GLUC1TES2 XX (08:58)
[2023-10-16] MEDS ORDERED: FLAS1KIT MC (08:59)
[2023-10-16 09:01] LABS: PSA SCREENING 1.94 NG/ML (< 4.00)
[2023-10-16] MEDS ORDERED: INSU100I48 SQ (11:34)
[2023-10-16] MEDS ORDERED: LANTINJ4 SC (12:41)
[2023-10-16] MEDS ORDERED: ADME100I2 SC (12:41)
[2023-10-16] MEDS ORDERED: PREG100CA PO (12:45)
== END 2023-10-16 14:42 | disposition home or self-care (01) | DRG 420 ==
LOC: EDBD 11:45 → M ED 11:45 → M ED INP 16:15 → M ICU 16:36 → M MSPAV 10-15 18:56
PROVIDERS: ADMIT Internal Medicine Pulmonary Disease; ATTEND Internal Medicine Pulmonary Disease
DX: E11.00 Type 2 diabetes mellitus with hyperosmolarity without nonketotic hyperglycemic-hyperosmolar coma (NKHHC) (principal); B20 Human immunodeficiency virus [HIV] disease; E11.22 Type 2 diabetes mellitus with diabetic chronic kidney disease; K86.1 Other chronic pancreatitis; E83.42 Hypomagnesemia; N18.30 Chronic kidney disease, stage 3 unspecified; E11.42 Type 2 diabetes mellitus with diabetic polyneuropathy; I12.9 Hypertensive chronic kidney disease with stage 1 through stage 4 chronic kidney disease, or unspecified chronic kidney disease; F31.9 Bipolar disorder, unspecified; K21.9 Gastro-esophageal reflux disease without esophagitis; E78.5 Hyperlipidemia, unspecified; J45.909 Unspecified asthma, uncomplicated; N40.0 Benign prostatic hyperplasia without lower urinary tract symptoms; G47.00 Insomnia, unspecified; F10.90 Alcohol use, unspecified, uncomplicated; F17.200 Nicotine dependence, unspecified, uncomplicated; Z79.82 Long term (current) use of aspirin; Z79.4 Long term (current) use of insulin; Z79.84 Long term (current) use of oral hypoglycemic drugs; Z79.899 Other long term (current) drug therapy; Z88.0 Allergy status to penicillin; Z91.018 Allergy to other foods; Z11.52 Encounter for screening for COVID-19; Z71.41 Alcohol abuse counseling and surveillance of alcoholic

== ENCOUNTER 2023-10-20 13:42 | Observation (INO) | payer OTHER ==
[~2023-10-20] VITALS: Ht 175.3 cm; Wt 57.7 kg
[~2023-10-20 13:42] MED LIST changes: +ALCOPAD25 TOP; +BLOOKIT21 XX; +FLAS1KIT MC; +INSU100I48 SQ; +LANC30MI XX; +LANTINJ4 SC; +PREG100CA PO
[2023-10-20] MEDS: FOLIC ACID 1MG TAB PO ONE (15:02)
[2023-10-20] MEDS: GABAPENTIN 300 MG CAP PO ONE (15:02)
[2023-10-20] MEDS: THIAMINE 100 MG TAB PO ONE (15:03)
[2023-10-20] MEDS: MULTIVITAMINS/MINERALS THERAP 1 TAB PO ONE (15:03)
[2023-10-20 15:29] LABS: VENOUS BASE EXCESS 3.2 (-2.0-2.0); VENOUS HCO3 28.9 MMOL/L (23.0-27.0); VENOUS O2 SATURATION 87.1 % (60.0-80.0); VENOUS PARTIAL PRESSURE CO2 49.2 mmHg (38.0-50.0); VENOUS PARTIAL PRESSURE O2 51.8 mmHg (30.0-50.0); VENOUS PH 7.387 UNITS (7.330-7.430); VENOUS STANDARD HCO3 27.1 MMOL/L; VENOUS TOTAL CO2 30.4 MMOL/L (24.0-28.0)
[2023-10-20 15:34] LABS: BASO % 0.4 % (0.0-1.0); EOS # 0.1 10^3/uL (0.0-0.5); EOS % 0.8 % (0.0-3.0); HEMATOCRIT 30.5 % (42.0-52.0); HEMOGLOBIN 10.1 g/dl (13.5-17.5); LYMPH # 2.7 10^3/uL (1.5-5.0); LYMPH % 35.3 % (24.0-44.0); MEAN CORPUSCULAR HEMOGLOBIN 31.2 pg (27.0-33.0); MEAN CORPUSCULAR HGB CONC 33.1 g/dl (32.0-36.5); MEAN CORPUSCULAR VOLUME 94.1 fl (80.0-96.0); MONO % 12.5 % (2.0-8.0); NEUTROPHILS # 3.9 10^3/uL (1.5-8.5); NEUTROPHILS % 50.5 % (36.0-66.0); PLATELET COUNT, AUTOMATED 235 10^3/uL (150-450); RED BLOOD COUNT 3.24 10^6/uL (4.30-6.10); WHITE BLOOD COUNT 7.7 10^3/uL (4.0-10.0)
[2023-10-20 15:50] LABS: D-DIMER QUANT 0.8 ug/mL (<0.5); INR 0.84; PARTIAL THROMBOPLASTIN TIME 24.5 SECONDS (24.8-34.2); PROTHROMBIN TIME 11.3 SECONDS (12.5-14.5)
[2023-10-20 16:04] LABS: LIPASE 87 U/L (12-53)
[2023-10-20 16:05] LABS: C REACTIVE PROTEIN QUANTITATIV < 0.40 MG/DL (<1.0)
[2023-10-20 16:07] LABS: ALBUMIN 2.8 G/DL (3.2-5.2); ALKALINE PHOSPHATASE 51 U/L (46-116); ALT/SGPT 29 U/L (7.0-40); AST/SGOT 35 U/L (<34); BILIRUBIN,DIRECT < 0.1 MG/DL (<0.4); BILIRUBIN,TOTAL 0.2 MG/DL (0.3-1.2); BLOOD UREA NITROGEN 8 MG/DL (9-23); CALCIUM LEVEL 8.9 MG/DL (8.5-10.1); CARBON DIOXIDE LEVEL 31 MMOL/L (20-31); CHLORIDE LEVEL 103 MMOL/L (98-107); CK-MB VALUE MASS 1.9 NG/ML (<3.6); CREATININE FOR GFR 0.87 MG/DL (0.70-1.30); GLOMERULAR FILTRATION RATE > 60.0 (>56); GLUCOSE, FASTING 100 MG/DL (60-100); POTASSIUM SERUM 5.5 MMOL/L (3.5-5.1); SODIUM LEVEL 137 MMOL/L (136-145); TOTAL PROTEIN 4.4 G/DL (5.7-8.2)
[2023-10-20 16:08] LABS: RSV AMPLIFICATION NEGATIVE (NEGATIVE); THYROID STIMULATING HORMONE 1.306 uIU/ML (0.55-4.78)
[2023-10-20 16:09] LABS: FREE T4 0.86 NG/DL (0.89-1.76)
[2023-10-20 16:10] LABS: CPK CREATINE PHOSPHOKINASE 188 U/L (46-171); MB/CK RELATIVE INDEX 1.01 (< OR =4)
[2023-10-20] MEDS ORDERED: ISOVUE-370 76% 100ML VIAL As Ordered ONE (16:49)
[2023-10-20 17:14] LABS: CK-MB VALUE MASS < 1.0 NG/ML (<3.6); CPK CREATINE PHOSPHOKINASE 185 U/L (46-171); MB/CK RELATIVE INDEX 0.54 (< OR =4)
[2023-10-20] MEDS: FUROSEMIDE 40MG/4ML VIAL IV ONE (18:07)
[2023-10-20] MEDS ORDERED: ACETAMINOPHEN TAB 650MG DOSE (2X325MG) PO PRN (20:10)
[2023-10-20 20:54] LABS: APPEARANCE, URINE CLEAR (CLEAR); BACTERIA, URINE AUTO NEGATIVE (NEGATIVE); BILIRUBIN, URINE AUTO NEGATIVE (NEGATIVE); BLOOD, URINE BLOOD NEGATIVE (NEGATIVE); COLOR, URINE COLORLESS (YELLOW); GLUCOSE, URINE (UA) AUTO NEGATIVE (NEGATIVE); KETONE, URINE AUTO NEGATIVE (NEGATIVE); LEUKOCYTE ESTERASE, URINE AUTO NEGATIVE (NEGATIVE); NITRITE, URINE AUTO NEGATIVE (NEGATIVE); PROTEIN, URINE AUTO NEGATIVE (NEGATIVE); RBC, URINE AUTO 1 /HPF (0-3); SPECIFIC GRAVITY URINE AUTO 1.009 (1.002-1.035); SQUAMOUS EPITHELIAL CELL UR AU 0 /HPF (0-6); UROBILINOGEN, URINE AUTO 0.2 mg/dL (0.0-2.0); WBC, URINE AUTO 0 /HPF (0-3)
[2023-10-20] MEDS: cloNIDine 0.2 MG TAB PO ONE (20:59)
[2023-10-20] MEDS: INSULIN LISPRO (NovoLOG) PER UNIT SC SCH (21:00)
[2023-10-20 21:26] LABS: CREATININE,RANDOM URINE < 13.0 MG/DL
[2023-10-20 21:30] LABS: TOTAL PROTEIN,RANDOM URINE < 6.0 MG/DL (0.0-14.0)
[2023-10-20 22:04] VITALS: BP 144/90; TEMP 97.7; O2SAT 99
[2023-10-20] MEDS: TAMSULOSIN 0.4 MG CAP PO ONE (23:20)
[2023-10-20] MEDS: PHENAZOPYRIDINE 100 MG TAB PO SCH (23:45)
[2023-10-21 06:25] VITALS: BP 104/59; TEMP 97.7; O2SAT 97
[2023-10-21] MEDS: INSULIN LISPRO (NovoLOG) PER UNIT SC SCH ×2 (07:30→12:23)
[2023-10-21 07:34] LABS: BLOOD UREA NITROGEN 11 MG/DL (9-23); CALCIUM LEVEL 8.8 MG/DL (8.5-10.1); CARBON DIOXIDE LEVEL 31 MMOL/L (20-31); CHLORIDE LEVEL 104 MMOL/L (98-107); CREATININE FOR GFR 0.78 MG/DL (0.70-1.30); GLOMERULAR FILTRATION RATE > 60.0 (>56); GLUCOSE, FASTING 56 MG/DL (60-100); POTASSIUM SERUM 4.4 MMOL/L (3.5-5.1); SODIUM LEVEL 138 MMOL/L (136-145)
[2023-10-21] MEDS ORDERED: PREG100CA PO (08:21)
[2023-10-21] MEDS ORDERED: LANTINJ4 SC (08:21)
[2023-10-21] MEDS ORDERED: INSU100I24 SC (08:21)
[2023-10-21] MEDS ORDERED: HOME MED LIST COMPLETE! XX SCH (08:25)
[2023-10-21] MEDS ORDERED: FUROSEMIDE 40 MG TAB PO SCH (09:00)
[2023-10-21] MEDS: TAMSULOSIN 0.4 MG CAP PO SCH (09:56)
[2023-10-21] MEDS: GABAPENTIN 400MG CAP PO SCH (09:56)
[2023-10-21] MEDS: buPROPion **XL** TABLET 150MG (WELLBUTRIN XL) PO SCH (11:08)
[2023-10-21] MEDS: FINASTERIDE 5MG TAB PO SCH (11:09)
[2023-10-21] MEDS: ATORVASTATIN 20 MG TAB PO SCH (11:09)
[2023-10-21] MEDS: ASPIRIN 81MG CHEW TABLET PO SCH (11:09)
[2023-10-21] MEDS: FOLIC ACID 1MG TAB PO SCH (11:09)
[2023-10-21] MEDS: PANTOPRAZOLE 40MG TAB (PROTONIX) PO SCH (11:09)
[2023-10-21] MEDS: LEVEMIR (INSULIN DETEMIR) 1 UNITS/0.01ML SC SCH (11:10)
[2023-10-21] MEDS ORDERED: LEVEMIR (INSULIN DETEMIR) 1 UNITS/0.01ML SC ONE (11:30)
[2023-10-21] MEDS ORDERED: GABA-284 PO (11:35)
[2023-10-21] MEDS ORDERED: PHEN1TAB73 PO (11:35)
[2023-10-21] MEDS ORDERED: INSULIN LISPRO (NovoLOG) PER UNIT SC SCH (12:00)
[2023-10-21 12:23] VITALS: BP 132/73
[2023-10-21] MEDS: ramipriL 5 MG CAP PO SCH (12:23)
[2023-10-21 12:36] VITALS: BP 108/66; TEMP 100.6; O2SAT 98
[2023-10-21] MEDS: HEPARIN SOD (PORCINE) 5000UNITS/ML 1ML VIAL/SYRINGE SC SCH (13:43)
[2023-10-21] MEDS ORDERED: LANC30MI XX (14:17)
[2023-10-21] MEDS ORDERED: FLAS1KIT MC (15:15)
[2023-10-21] MEDS ORDERED: cloNIDine 0.1MG TABLET PO SCH (21:00)
[2023-10-21] MEDS ORDERED: TAMSULOSIN 0.4 MG CAP PO SCH (21:00)
[2023-10-22] MEDS ORDERED: TRIUMEQ PO SCH (09:00)
== END 2023-10-21 16:00 | disposition home or self-care (01) ==
LOC: M ED 13:42 → M ED INP 19:56 → INTOOBSV 19:56 → ENRESERV 20:32 → M MSPAV 22:05
PROVIDERS: ADMIT Internal Medicine; ATTEND Student in an Organized Health Care Education/Training Program
DX: R60.0 Localized edema (principal); E11.40 Type 2 diabetes mellitus with diabetic neuropathy, unspecified; M79.671 Pain in right foot; M79.672 Pain in left foot; M79.89 Other specified soft tissue disorders; T42.6X5A Adverse effect of other antiepileptic and sedative-hypnotic drugs, initial encounter; B20 Human immunodeficiency virus [HIV] disease; R30.9 Painful micturition, unspecified; I10 Essential (primary) hypertension; F32.A Depression, unspecified; K21.9 Gastro-esophageal reflux disease without esophagitis; N40.0 Benign prostatic hyperplasia without lower urinary tract symptoms; F12.90 Cannabis use, unspecified, uncomplicated; F17.210 Nicotine dependence, cigarettes, uncomplicated; F10.20 Alcohol dependence, uncomplicated; Z88.8 Allergy status to other drugs, medicaments and biological substances; Z91.018 Allergy to other foods; Z79.899 Other long term (current) drug therapy; Z79.82 Long term (current) use of aspirin; Z79.84 Long term (current) use of oral hypoglycemic drugs; Z79.4 Long term (current) use of insulin
CPT/HCPCS: 71045; 71275; 80048; 80076; 81001; 82550; 82553; 82570; 82803; 83690; 83880; 84156; 84439; 84443; 85025; 85379; 85610; 85730; 86140; 87040; 87631; 93005; 93041; 93970; 94760; 96372; 96374; 97161; 97165; 99285; J1815; J1940; Q9967; S0138

== ENCOUNTER → 2023-11-05 | Outpatient (CLI) | payer OTHER ==
[~2023-11-05] MED LIST changes: +INSU100I24 SC; +LIDOCAINE 1% MDV 20ML VIAL As Ordered ONE; +PHEN1TAB73 PO
[2023-11-05 09:52] VITALS: TEMP 98.9
[2023-11-05 10:55] VITALS: BP 178/85; O2SAT 100
== END ==
LOC: M IRPRO 09:46
PROVIDERS: ATTEND Internal Medicine Infectious Disease
DX: E04.1 Nontoxic single thyroid nodule (principal)

== ENCOUNTER 2024-04-21 10:51 | Emergency (ER) | payer OTHER ==
[~2024-04-21] VITALS: Ht 175.3 cm; Wt 56.8 kg
[~2024-04-21 10:51] MED LIST changes: +BUPR-597 PO; -BUPR300T92 PO; -LIDOCAINE 1% MDV 20ML VIAL As Ordered ONE; +RAMI1.258 PO; -RAMI1CAP21 PO; -RAMI1CAP24 PO; +RAMI5CAP60 PO
[2024-04-21] MEDS: NS 1,000 ML IV ONE ×2 (11:40→12:45)
[2024-04-21 11:43] LABS: VENOUS BASE EXCESS -2.7 (-2.0-2.0); VENOUS HCO3 24.1 MMOL/L (23.0-27.0); VENOUS O2 SATURATION 54.9 % (60.0-80.0); VENOUS PARTIAL PRESSURE CO2 49.6 mmHg (38.0-50.0); VENOUS PH 7.305 UNITS (7.330-7.430); VENOUS STANDARD HCO3 21.3 MMOL/L; VENOUS TOTAL CO2 25.7 MMOL/L (24.0-28.0)
[2024-04-21 11:51] LABS: BASO % 0.4 % (0.0-1.0); EOS % 0.6 % (0.0-3.0); HEMATOCRIT 40.4 % (42.0-52.0); HEMOGLOBIN 13.9 g/dl (13.5-17.5); LYMPH # 1.2 10^3/uL (1.5-5.0); LYMPH % 22.2 % (24.0-44.0); MEAN CORPUSCULAR HEMOGLOBIN 30.3 pg (27.0-33.0); MEAN CORPUSCULAR HGB CONC 34.4 g/dl (32.0-36.5); MONO # 0.5 10^3/uL (0.0-0.8); MONO % 8.7 % (2.0-8.0); NEUTROPHILS # 3.5 10^3/uL (1.5-8.5); NEUTROPHILS % 67.7 % (36.0-66.0); PLATELET COUNT, AUTOMATED 238 10^3/uL (150-450); RED BLOOD COUNT 4.59 10^6/uL (4.30-6.10); WHITE BLOOD COUNT 5.2 10^3/uL (4.0-10.0)
[2024-04-21 12:14] LABS: ETHYL ALCOHOL (ETHANOL) < 0.003 % (0.000-0.010); LIPASE 36 U/L (12-53)
[2024-04-21 12:17] LABS: ACETONE/KETONE 0.22 MMOL/L (0.02-0.27)
[2024-04-21 12:43] LABS: ALBUMIN 3.1 G/DL (3.2-5.2); ALKALINE PHOSPHATASE 137 U/L (46-116); ALT/SGPT 63 U/L (7.0-40); AST/SGOT 35 U/L (<34); BILIRUBIN,DIRECT < 0.1 MG/DL (<0.4); BILIRUBIN,TOTAL 0.3 MG/DL (0.3-1.2); BLOOD UREA NITROGEN 14 MG/DL (9-23); CARBON DIOXIDE LEVEL 30 MMOL/L (20-31); CHLORIDE LEVEL 91 MMOL/L (98-107); CREATININE FOR GFR 1.02 MG/DL (0.70-1.30); GLOMERULAR FILTRATION RATE > 60.0 (>56); GLUCOSE, FASTING 924 MG/DL (60-100); POTASSIUM SERUM 4.7 MMOL/L (3.5-5.1); SODIUM LEVEL 123 MMOL/L (136-145); TOTAL PROTEIN 6.8 G/DL (5.7-8.2)
[2024-04-21] MEDS: HumuLIN R (REGULAR) INSULIN (NovoLIN R) **100U/ML** PER UNIT IV ONE ×2 (13:20→15:30)
[2024-04-21 13:49] LABS: OSMOLALITY SERUM 321 MOSM/KG (275-295)
[2024-04-21] MEDS: INSULIN LISPRO (NovoLOG) PER UNIT SC ONE (15:44)
[2024-04-21] MEDS ORDERED: HOME MED LIST COMPLETE! XX SCH (16:35)
[2024-04-21] MEDS ORDERED: INSU100I24 SC (16:50)
[2024-04-21] MEDS ORDERED: LANTINJ4 SC (16:50)
[2024-04-21 18:50] VITALS: BP 155/86; TEMP 97.2; O2SAT 99
== END 2024-04-21 18:51 | disposition home or self-care (01) ==
LOC: M ED 10:51 → EDBD 10:51 → M ED 18:51
DX: E11.65 Type 2 diabetes mellitus with hyperglycemia (principal); J45.909 Unspecified asthma, uncomplicated; I10 Essential (primary) hypertension; E78.5 Hyperlipidemia, unspecified; N40.0 Benign prostatic hyperplasia without lower urinary tract symptoms; F17.200 Nicotine dependence, unspecified, uncomplicated; F10.10 Alcohol abuse, uncomplicated; Z21 Asymptomatic human immunodeficiency virus [HIV] infection status; Z88.8 Allergy status to other drugs, medicaments and biological substances; Z91.018 Allergy to other foods; Z79.52 Long term (current) use of systemic steroids; Z79.82 Long term (current) use of aspirin; Z79.4 Long term (current) use of insulin; Z79.899 Other long term (current) drug therapy
CPT/HCPCS: 71045; 80048; 80076; 82010; 82077; 82803; 83690; 83735; 83930; 85025; 93005; 93041; 96361; 96374; 99285; J1815

== ENCOUNTER 2024-06-26 04:15 | Inpatient (IN) | payer OTHER ==
[2024-06-26] VITALS (58 sets, daily range): BP systolic 81–151; BP diastolic 43–82; TEMP 95.2–99.3; O2SAT 78–100
[~2024-06-26] VITALS: Ht 175.3 cm; Wt 64.0 kg
[2024-06-26] MEDS: NS 1,000 ML IV ONE ×2 (04:40→05:55)
[2024-06-26 05:16] LABS: VENOUS BASE EXCESS -7.4 (-2.0-2.0); VENOUS HCO3 20.7 MMOL/L (23.0-27.0); VENOUS O2 SATURATION 45.1 % (60.0-80.0); VENOUS PARTIAL PRESSURE CO2 51.9 mmHg (38.0-50.0); VENOUS PARTIAL PRESSURE O2 31.2 mmHg (30.0-50.0); VENOUS PH 7.218 UNITS (7.330-7.430); VENOUS STANDARD HCO3 17.5 MMOL/L; VENOUS TOTAL CO2 22.3 MMOL/L (24.0-28.0)
[2024-06-26] MEDS: MIDAZOLAM INJ 2MG/2ML VIAL IV STA (05:41)
[2024-06-26 05:54] LABS: ETHYL ALCOHOL (ETHANOL) < 0.003 % (0.000-0.010)
[2024-06-26 05:55] LABS: CPK CREATINE PHOSPHOKINASE 207 U/L (46-171); HEMATOCRIT 45.4 % (42.0-52.0); HEMOGLOBIN 13.3 g/dl (13.5-17.5); MEAN CORPUSCULAR HEMOGLOBIN 30.8 pg (27.0-33.0); MEAN CORPUSCULAR HGB CONC 29.3 g/dl (32.0-36.5); MEAN CORPUSCULAR VOLUME 105.1 fl (80.0-96.0); PLATELET COUNT, AUTOMATED 247 10^3/uL (150-450); RED BLOOD COUNT 4.32 10^6/uL (4.30-6.10); WHITE BLOOD COUNT 8.5 10^3/uL (4.0-10.0)
[2024-06-26] MEDS: SODIUM BICARBONATE 8.4% INJ 50ML SYRINGE IV STA (06:27)
[2024-06-26 06:30] LABS: ALBUMIN 2.2 G/DL (3.2-5.2); ALKALINE PHOSPHATASE 311 U/L (40-129); ALT/SGPT 133 U/L (7.0-40); AST/SGOT 68 U/L (<34); BILIRUBIN,DIRECT < 0.1 MG/DL (<0.4); BILIRUBIN,TOTAL 0.2 MG/DL (0.3-1.2); BLOOD UREA NITROGEN 135 MG/DL (9-23); CALCIUM LEVEL 9.4 MG/DL (8.5-10.1); CARBON DIOXIDE LEVEL 23 MMOL/L (20-31); CHLORIDE LEVEL 116 MMOL/L (98-107); CK-MB VALUE MASS < 1.0 NG/ML (<3.6); CREATININE FOR GFR 5.41 MG/DL (0.70-1.30); GLOMERULAR FILTRATION RATE 14.1 (>56); MAGNESIUM LEVEL 3.5 MG/DL (1.8-2.4); MB/CK RELATIVE INDEX 0.48 (< OR =4); POTASSIUM SERUM 4.8 MMOL/L (3.5-5.1); SODIUM LEVEL 162 MMOL/L (136-145); THYROID STIMULATING HORMONE 8.714 uIU/ML (0.55-4.78); TOTAL PROTEIN 6.6 G/DL (5.7-8.2)
[2024-06-26 06:47] LABS: ATYPICAL LYMPH 3 % (0-5); LYMPHOCYTES 17 % (16-44); METAMYELOCYTES 1 % (0-0); MONOCYTES 7 % (0-5); NEUTROPHILS 52 % (28-66)
[2024-06-26 06:48] LABS: PLATELET CLUMPS SMALL AMT; PLATELET ESTIMATE NORMAL (NORMAL)
[2024-06-26 06:49] LABS: ANISOCYTOSIS 1+
[2024-06-26 06:50] LABS: MICROCYTOSIS 1+
[2024-06-26] MEDS: CEFEPIME HCL 2 GM in DEXTROSE 5% (D5W) ADV/MINI-BAG 50 ML IV ONE (06:50)
[2024-06-26] MEDS ORDERED: INSULIN IV RATE CHANGE DOCUMENTATION ML/HR XX SCH (07:00)
[2024-06-26] MEDS ORDERED: NOREPINEPHRINE 4MG IN D5 250ML 4 MG in IV 1 EA IV SCH (07:35)
[2024-06-26] MEDS: NS 0.45% 1,000 ML IV SCH ×3 (07:41→17:12)
[2024-06-26] MEDS: HumuLIN R (REGULAR) INSULIN (NovoLIN R) **100U/ML** PER UNIT IV ONE (07:46)
[2024-06-26 07:52] LABS: GLUCOSE, FASTING 1075 MG/DL (60-100)
[2024-06-26 07:54] LABS: ACETONE/KETONE 3.45 MMOL/L (0.02-0.27)
[2024-06-26 07:55] LABS: OSMOLALITY SERUM 458 MOSM/KG (275-295)
[2024-06-26] MEDS: INSULIN REGULAR IN 0.9 % NACL 100 UNIT in IV 1 EA IV SCH ×2 (07:57→13:10)
[2024-06-26 09:08] LABS: HEMOGLOBIN A1c > 14.0 % (4.0-6.0)
[2024-06-26] MEDS: NS 0.45% 1,000 ML IV ONE (09:12)
[2024-06-26 09:40] LABS: VENOUS PH 7.442 UNITS (7.330-7.430); VENOUS SITE UAC
[2024-06-26 09:42] LABS: VENOUS BASE EXCESS 2.4 (-2.0-2.0); VENOUS HCO3 26.7 MMOL/L (23.0-27.0); VENOUS O2 SATURATION 98.9 % (60.0-80.0); VENOUS PARTIAL PRESSURE O2 189.3 mmHg (30.0-50.0); VENOUS STANDARD HCO3 26.7 MMOL/L; VENOUS TOTAL CO2 27.9 MMOL/L (24.0-28.0)
[2024-06-26 10:15] LABS: CALCIUM LEVEL 8.3 MG/DL (8.5-10.1); CREATININE FOR GFR 4.89 MG/DL (0.70-1.30); GLOMERULAR FILTRATION RATE 15.9 (>56); POTASSIUM SERUM 3.4 MMOL/L (3.5-5.1)
[2024-06-26 10:23] LABS: CK-MB VALUE MASS 2.4 NG/ML (<3.6)
[2024-06-26 10:24] LABS: MAGNESIUM LEVEL 3.1 MG/DL (1.8-2.4); PHOSPHORUS LEVEL 4.3 MG/DL (2.5-4.9)
[2024-06-26 10:26] LABS: MB/CK RELATIVE INDEX 0.42 (< OR =4)
[2024-06-26] MEDS: LIDOCAINE 2% 5ML JELLY UROJET TOP ONE (10:52)
[2024-06-26] MEDS: NS 0.45% 1,000 ML IV STA (10:53)
[2024-06-26] MEDS: ALBUTEROL SULFATE 2.5MG/0.5ML INH NEB SOLN NEB SCH (11:11)
[2024-06-26] MEDS: MIDAZOLAM INJ 2MG/2ML VIAL IV ONE ×2 (11:20→13:11)
[2024-06-26] MEDS: NOREPINEPHRINE 4MG IN D5 250ML 4 MG in IV 1 EA IV SCH (11:49)
[2024-06-26] MEDS: VASOPRESSIN IN 0.9 % NACL 20 UNIT in IV 1 EA IV SCH (12:11)
[2024-06-26] MEDS: DOXYCYCLINE HYCLATE 100 MG in DEXTROSE 5% (D5W) MINI-BAG PLU 100 ML IV SCH (12:19)
[2024-06-26] MEDS: HYDROCORTISONE 100MG/2ML VIAL IV ONE (12:19)
[2024-06-26] MEDS ORDERED: VANCOMYCIN/WATER FOR INJ 1,000 MG in IV 1 EA IP ONE (12:40)
[2024-06-26 12:46] LABS: ABG BASE EXCESS 0.6 (-2.0-2.0); ABG HCO3 26.5 MMOL/L (22.0-26.0); ABG O2 SATURATION 95.3 % (95.0-99.0); ABG PARTIAL PRESSURE CO2 47.7 mmHg (35.0-45.0); ABG PARTIAL PRESSURE O2 90.3 mmHg (75.0-100.0); ABG TOTAL CO2 27.9 MMOL/L (22.0-29.0); ABG pH (ARTERIAL) 7.362 UNITS (7.350-7.450)
[2024-06-26 12:49] LABS: CENTRAL VEN BASE EXCESS 2.4
[2024-06-26] MEDS: KCL 20MEQ IN 100ML SWI (KRUN) 20 MEQ in IV 1 EA IV ONE ×2 (12:58→21:52)
[2024-06-26 12:59] LABS: BARBITURATES URINE NEGATIVE (NEGATIVE); METHADONE URINE NEGATIVE (NEGATIVE); OPIATES URINE NEGATIVE (NEGATIVE); PHENCYCLIDINE URINE NEGATIVE (NEGATIVE)
[2024-06-26 13:00] LABS: AMPHETAMINES LEVEL URINE NEGATIVE (NEGATIVE); BENZODIAZEPINES URINE NEGATIVE (NEGATIVE); CANNABINOIDS URINE NEGATIVE (NEGATIVE)
[2024-06-26] MEDS ORDERED: cefTRIAXone SOD 1 GM in DEXTROSE 5% (D5W) ADV/MINI-BAG 50 ML IV SCH (13:00)
[2024-06-26] MEDS: INSULIN IV RATE CHANGE DOCUMENTATION ML/HR XX SCH (13:09)
[2024-06-26 13:12] LABS: COCAINE METABOLITE URINE POSITIVE (NEGATIVE)
[2024-06-26] MEDS ORDERED: VANCOMYCIN INTERMITTENT/PULSE DOSING BY CLINICAL PHARMACIST PER DOSING PROTOCOL XX SCH (13:50)
[2024-06-26] MEDS ORDERED: LANTINJ4 SC (13:52)
[2024-06-26] MEDS ORDERED: HOME MED LIST COMPLETE! XX SCH (13:55)
[2024-06-26] MEDS: PIPERACILLIN/TAZOBACTAM SOD 2.25 GM in DEXTROSE 5% (D5W) ADV/MINI-BAG 50 ML IV SCH (14:09)
[2024-06-26] MEDS: VANCOMYCIN 750 MG/150 ML IV ONE (14:09)
[2024-06-26] MEDS: dexmedeTOMidine 200 MCG in IV 1 EA IV SCH (14:58)
[2024-06-26] MEDS: PANTOPRAZOLE 40MG VIAL IV SCH (15:14)
[2024-06-26 15:37] LABS: VENOUS HCO3 24.5 MMOL/L (23.0-27.0); VENOUS O2 SATURATION 97.4 % (60.0-80.0); VENOUS PARTIAL PRESSURE CO2 49.5 mmHg (38.0-50.0); VENOUS PARTIAL PRESSURE O2 118.1 mmHg (30.0-50.0); VENOUS PH 7.312 UNITS (7.330-7.430); VENOUS STANDARD HCO3 22.8 MMOL/L
[2024-06-26 16:05] LABS: CK-MB VALUE MASS 8.2 NG/ML (<3.6)
[2024-06-26 16:20] LABS: CREATININE FOR GFR 3.47 MG/DL (0.70-1.30); GLOMERULAR FILTRATION RATE 23.6 (>56); MB/CK RELATIVE INDEX 0.38 (< OR =4)
[2024-06-26] MEDS ORDERED: KCL 20MEQ IN 100ML SWI (KRUN) 20 MEQ in IV 1 EA IV SCH (16:35)
[2024-06-26] MEDS ORDERED: KCL 20MEQ IN 100ML SWI (KRUN) 20 MEQ in IV 1 EA IV ONE (17:00)
[2024-06-26] MEDS: KCL 20MEQ IN 100ML SWI (KRUN) 20 MEQ in IV 1 EA IV SCH (17:12)
[2024-06-26] MEDS ORDERED: CALCIUM CHLORIDE 10% 1 GM in D5W 100 ML IV ONE (18:00)
[2024-06-26] MEDS: CALCIUM CHLORIDE 10% 1 GM in D5W 100 ML IV ONE (18:22)
[2024-06-26] MEDS ORDERED: INSULIN REGULAR IN 0.9 % NACL 100 UNIT in IV 1 EA IV SCH (19:00)
[2024-06-26] MEDS: HYDROCORTISONE 100MG/2ML VIAL IV SCH (20:17)
[2024-06-26] MEDS: KCL 20MEQ IN 0.45NS 1000ML 1,000 ML IV SCH (20:27)
[2024-06-26 20:49] LABS: VENOUS BASE EXCESS -1.4 (-2.0-2.0); VENOUS HCO3 21.9 MMOL/L (23.0-27.0); VENOUS O2 SATURATION 98.4 % (60.0-80.0); VENOUS PARTIAL PRESSURE CO2 32.3 mmHg (38.0-50.0); VENOUS PARTIAL PRESSURE O2 145.5 mmHg (30.0-50.0); VENOUS STANDARD HCO3 23.4 MMOL/L; VENOUS TOTAL CO2 22.9 MMOL/L (24.0-28.0)
[2024-06-26] MEDS ORDERED: LEVEMIR (INSULIN DETEMIR) 1 UNITS/0.01ML SC SCH (21:00)
[2024-06-26] MEDS: HEPARIN SOD (PORCINE) 5000UNITS/ML 1ML VIAL/SYRINGE SC SCH (21:06)
[2024-06-26 21:21] LABS: CALCIUM LEVEL 7.7 MG/DL (8.5-10.1); CREATININE FOR GFR 2.44 MG/DL (0.70-1.30); GLOMERULAR FILTRATION RATE 35.4 (>56); MAGNESIUM LEVEL 1.5 MG/DL (1.8-2.4); POTASSIUM SERUM 3.1 MMOL/L (3.5-5.1)
[2024-06-26] MEDS: D5W/0.45% SODIUM CHLORIDE 1,000 ML IV SCH (21:39)
[2024-06-26] MEDS ORDERED: DEXTROSE 50% 50ML SYRINGE As Ordered ONE (22:19)
[2024-06-26] MEDS: DEXTROSE 50% 50ML SYRINGE IV STA (22:25)
[2024-06-26] MEDS: MAG SULF 1GM/100ML (MAG RUN) 1 GM in IV 1 EA IV SCH (22:26)
[2024-06-26] MEDS: LEVEMIR (INSULIN DETEMIR) 1 UNITS/0.01ML SC ONE (22:26)
[2024-06-26] MEDS: POTASSIUM CHLORIDE 10% LIQ 20MEQ/15ML UDC PO ONE (22:26)
[2024-06-27] VITALS (118 sets, daily range): BP systolic 72–175; BP diastolic 44–88; TEMP 96–99.9
[2024-06-27] MEDS ORDERED: MIDAZOLAM INJ 2MG/2ML VIAL As Ordered ONE (00:07)
[2024-06-27] MEDS: MIDAZOLAM INJ 2MG/2ML VIAL IV STA ×2 (00:09→10:45)
[2024-06-27 00:55] LABS: ABG BASE EXCESS -4.1 (-2.0-2.0); ABG HCO3 20.4 MMOL/L (22.0-26.0); ABG O2 SATURATION 84.6 % (95.0-99.0); ABG PARTIAL PRESSURE CO2 35.4 mmHg (35.0-45.0); ABG PARTIAL PRESSURE O2 52.7 mmHg (75.0-100.0); ABG STANDARD HCO3 20.9 MMOL/L. (22.0-26.0); ABG TOTAL CO2 21.5 MMOL/L (22.0-29.0); ABG pH (ARTERIAL) 7.379 UNITS (7.350-7.450)
[2024-06-27 04:25] LABS: HEMATOCRIT 34.2 % (42.0-52.0); HEMOGLOBIN 11.4 g/dl (13.5-17.5); MEAN CORPUSCULAR HEMOGLOBIN 30.5 pg (27.0-33.0); MEAN CORPUSCULAR HGB CONC 33.3 g/dl (32.0-36.5); MEAN CORPUSCULAR VOLUME 91.4 fl (80.0-96.0); RED BLOOD COUNT 3.74 10^6/uL (4.30-6.10); WHITE BLOOD COUNT 4.6 10^3/uL (4.0-10.0)
[2024-06-27 04:42] LABS: VANCOMYCIN RANDOM 7.1 UG/ML
[2024-06-27 04:43] LABS: CALCIUM LEVEL 7.3 MG/DL (8.5-10.1); CREATININE FOR GFR 2.19 MG/DL (0.70-1.30); GLOMERULAR FILTRATION RATE 40.1 (>56); POTASSIUM SERUM 3.5 MMOL/L (3.5-5.1)
[2024-06-27 04:44] LABS: PLATELET COUNT, AUTOMATED 91 10^3/uL (150-450)
[2024-06-27 04:55] LABS: PROCALCITONIN 30.52 ng/ml
[2024-06-27] MEDS: VANCOMYCIN 750 MG/150 ML IV ONE (05:04)
[2024-06-27] MEDS: NS 0.45% 1,000 ML IV ONE (09:02)
[2024-06-27 09:33] LABS: ABG BASE EXCESS -5.8 (-2.0-2.0); ABG PARTIAL PRESSURE CO2 25.8 mmHg (35.0-45.0); ABG STANDARD HCO3 19.4 MMOL/L. (22.0-26.0); ABG TOTAL CO2 17.8 MMOL/L (22.0-29.0); ABG pH (ARTERIAL) 7.436 UNITS (7.350-7.450)
[2024-06-27 09:35] LABS: ABG PARTIAL PRESSURE O2 42.2 mmHg (75.0-100.0)
[2024-06-27] MEDS ORDERED: EPINEPHrine INJ 1 MG/ML 1ML AMP As Ordered ONE (09:54)
[2024-06-27] MEDS ORDERED: ROCURONIUM BROMIDE 50MG/5ML VIAL ONE (10:02)
[2024-06-27] MEDS ORDERED: LIDOCAINE 1% MDV 20ML VIAL As Ordered ONE (10:07)
[2024-06-27] MEDS ORDERED: PHENYLEPHRINE 10MG/ML 1ML VIAL As Ordered ONE (10:09)
[2024-06-27] MEDS: FLUCONAZOLE 200 MG in IV 1 EA IV SCH (10:28)
[2024-06-27] MEDS: propofoL 200 MG/20 ML VIAL IV ONE (10:44)
[2024-06-27] MEDS: PHENYLEPHRINE HCL INJ 50 MG in D5W 495 ML IV SCH (10:45)
[2024-06-27] MEDS: ROCURONIUM BROMIDE 50MG/5ML VIAL IV SCH (10:47)
[2024-06-27] MEDS: CETACAINE SPRAY 5GM MT STA (10:55)
[2024-06-27] MEDS: LR 1,000 ML IV STA (10:55)
[2024-06-27] MEDS: KCL 20MEQ IN 0.45NS 1000ML 1,000 ML IV SCH (11:22)
[2024-06-27] MEDS ORDERED: MEROPENEM INJ 1 GM in IV 1 EA IV SCH (12:15)
[2024-06-27 12:17] LABS: ABG BASE EXCESS -8.7 (-2.0-2.0); ABG HCO3 19.2 MMOL/L (22.0-26.0); ABG O2 SATURATION 80.4 % (95.0-99.0); ABG PARTIAL PRESSURE CO2 49.7 mmHg (35.0-45.0); ABG PARTIAL PRESSURE O2 53.2 mmHg (75.0-100.0); ABG STANDARD HCO3 17.2 MMOL/L. (22.0-26.0); ABG TOTAL CO2 20.7 MMOL/L (22.0-29.0)
[2024-06-27 12:20] LABS: ABG pH (ARTERIAL) 7.205 UNITS (7.350-7.450)
[2024-06-27] MEDS: TRIMETHOPRIM/SULFAMETHOXAZOLE 160 MG in D5W 250 ML IV SCH (13:31)
[2024-06-27] MEDS: MEROPENEM INJ 1 GM in IV 1 EA IV SCH (13:34)
[2024-06-27 14:55] LABS: ABG BASE EXCESS -10.4 (-2.0-2.0); ABG HCO3 17.8 MMOL/L (22.0-26.0); ABG O2 SATURATION 82.4 % (95.0-99.0); ABG PARTIAL PRESSURE CO2 49.2 mmHg (35.0-45.0); ABG PARTIAL PRESSURE O2 57.3 mmHg (75.0-100.0); ABG STANDARD HCO3 15.9 MMOL/L. (22.0-26.0); ABG TOTAL CO2 19.3 MMOL/L (22.0-29.0)
[2024-06-27 14:58] LABS: ABG pH (ARTERIAL) 7.177 UNITS (7.350-7.450)
[2024-06-27] MEDS ORDERED: FENTANYL DRIP LOCK BOX KEY 1 EACH XX PRN (16:30)
[2024-06-27] MEDS ORDERED: CISATRACURIUM 200 MG in NS 480 ML IV SCH (16:30)
[2024-06-27] MEDS: fentaNYL CITRATE/NaCl 1,000 MCG in IV 1 EA IV SCH (17:28)
[2024-06-27] MEDS: CISATRACURIUM 200 MG in NS 480 ML IV SCH (18:00)
[2024-06-27 20:13] LABS: ABG BASE EXCESS -13.6 (-2.0-2.0); ABG HCO3 16.3 MMOL/L (22.0-26.0); ABG PARTIAL PRESSURE CO2 53.4 mmHg (35.0-45.0); ABG TOTAL CO2 17.9 MMOL/L (22.0-29.0)
[2024-06-27] MEDS ORDERED: GLUCAGON INJ 1MG VIAL SC PRN (20:15)
[2024-06-27] MEDS ORDERED: GLUCOSE 4 GM CHEW PO PRN (20:15)
[2024-06-27 20:16] LABS: ABG pH (ARTERIAL) 7.102 UNITS (7.350-7.450)
[2024-06-27 20:21] LABS: HEMATOCRIT 34.8 % (42.0-52.0); HEMOGLOBIN 11.1 g/dl (13.5-17.5); MEAN CORPUSCULAR HEMOGLOBIN 30.6 pg (27.0-33.0); MEAN CORPUSCULAR HGB CONC 31.9 g/dl (32.0-36.5); MEAN CORPUSCULAR VOLUME 95.9 fl (80.0-96.0); RED BLOOD COUNT 3.63 10^6/uL (4.30-6.10); WHITE BLOOD COUNT 5.5 10^3/uL (4.0-10.0)
[2024-06-27] MEDS: LEVEMIR (INSULIN DETEMIR) 1 UNITS/0.01ML SC SCH (20:24)
[2024-06-27 20:25] LABS: PLATELET COUNT, AUTOMATED 31 10^3/uL (150-450)
[2024-06-27] MEDS: VANCOMYCIN HCL 500 MG in DEXTROSE 5% (D5W) MINI-BAG PLU 100 ML IV ONE (20:25)
[2024-06-27] MEDS: DEXTROSE 50% 50ML SYRINGE IV PRN (20:31)
[2024-06-27] MEDS: MIDAZOLAM 100MG/100ML-0.9%NACL 100 MG in IV 1 EA IV SCH (20:38)
[2024-06-27 20:46] LABS: CALCIUM LEVEL 6.4 MG/DL (8.5-10.1); CREATININE FOR GFR 2.5 MG/DL (0.70-1.30); GLOMERULAR FILTRATION RATE 34.4 (>56); POTASSIUM SERUM 4.8 MMOL/L (3.5-5.1)
[2024-06-27 21:26] LABS: ATYPICAL LYMPH 5 % (0-5); LYMPHOCYTES 18 % (16-44); METAMYELOCYTES 4 % (0-0); MONOCYTES 6 % (0-5); NEUTROPHILS 34 % (28-66); PLATELET ESTIMATE MARKED DECREASE (NORMAL)
[2024-06-27 21:27] LABS: ANISOCYTOSIS 1+; BURR CELLS 2+; POIKILOCYTOSIS 2+
[2024-06-27] MEDS: KCL 20MEQ in NS 1000ML 1,000 ML IV SCH (21:27)
[2024-06-27 21:28] LABS: OVALOCYTES 1+; TARGET CELLS 1+
[2024-06-27] MEDS ORDERED: NS 1,000 ML IV ONE (22:00)
[2024-06-27] MEDS: NS 500 ML IV ONE (22:14)
[2024-06-27] MEDS: SODIUM BICARBONATE 8.4% INJ 50ML SYRINGE IV STA (23:54)
[2024-06-28] VITALS (94 sets, daily range): BP systolic 80–150; BP diastolic 49–83; TEMP 94.3–97.5
[2024-06-28 01:06] LABS: ABG BASE EXCESS -13.2 (-2.0-2.0); ABG HCO3 15.3 MMOL/L (22.0-26.0); ABG O2 SATURATION 93.8 % (95.0-99.0); ABG PARTIAL PRESSURE CO2 45.7 mmHg (35.0-45.0); ABG PARTIAL PRESSURE O2 81.2 mmHg (75.0-100.0); ABG STANDARD HCO3 14.1 MMOL/L. (22.0-26.0); ABG TOTAL CO2 16.7 MMOL/L (22.0-29.0)
[2024-06-28 01:07] LABS: ABG pH (ARTERIAL) 7.142 UNITS (7.350-7.450)
[2024-06-28] MEDS: SODIUM BICARBONATE 8.4% INJ 50ML SYRINGE IV STA (02:37)
[2024-06-28] MEDS: NS 1,000 ML IV ONE (02:37)
[2024-06-28 04:57] LABS: HEMATOCRIT 30.8 % (42.0-52.0); HEMOGLOBIN 9.7 g/dl (13.5-17.5); MEAN CORPUSCULAR HEMOGLOBIN 30.2 pg (27.0-33.0); MEAN CORPUSCULAR HGB CONC 31.5 g/dl (32.0-36.5); RED BLOOD COUNT 3.21 10^6/uL (4.30-6.10); WHITE BLOOD COUNT 6.4 10^3/uL (4.0-10.0)
[2024-06-28 04:58] LABS: ABG BASE EXCESS -13.7 (-2.0-2.0); ABG O2 SATURATION 92.8 % (95.0-99.0); ABG PARTIAL PRESSURE CO2 39.4 mmHg (35.0-45.0); ABG PARTIAL PRESSURE O2 76.4 mmHg (75.0-100.0); ABG STANDARD HCO3 13.7 MMOL/L. (22.0-26.0); ABG TOTAL CO2 15.2 MMOL/L (22.0-29.0)
[2024-06-28 05:00] LABS: PLATELET COUNT, AUTOMATED 24 10^3/uL (150-450)
[2024-06-28 05:03] LABS: ABG pH (ARTERIAL) 7.169 UNITS (7.350-7.450)
[2024-06-28 05:55] LABS: ALBUMIN 1.1 G/DL (3.2-5.2); BILIRUBIN,TOTAL 0.4 MG/DL (0.3-1.2); CALCIUM LEVEL 5.8 MG/DL (8.5-10.1); CREATININE FOR GFR 2.45 MG/DL (0.70-1.30); GLOMERULAR FILTRATION RATE 35.2 (>56); MAGNESIUM LEVEL 1.6 MG/DL (1.8-2.4); PHOSPHORUS LEVEL 7.3 MG/DL (2.5-4.9); POTASSIUM SERUM 5.2 MMOL/L (3.5-5.1); TOTAL PROTEIN 3.9 G/DL (5.7-8.2)
[2024-06-28 06:08] LABS: ATYPICAL LYMPH 2 % (0-5); LYMPHOCYTES 15 % (16-44); MONOCYTES 16 % (0-5); NEUTROPHILS 41 % (28-66)
[2024-06-28 06:11] LABS: ANISOCYTOSIS 1+; BURR CELLS 2+; PLATELET ESTIMATE MARKED DECREASE (NORMAL); POIKILOCYTOSIS 2+
[2024-06-28 06:15] LABS: HELMET CELLS 1+
[2024-06-28] MEDS: INSULIN LISPRO (NovoLOG) PER UNIT SC STA (06:25)
[2024-06-28] MEDS: CALCIUM GLUCONATE 1,000 MG in DEXTROSE 5% (D5W) MINI-BAG PLU 100 ML IV SCH (06:25)
[2024-06-28] MEDS: MAG SULF 1GM/100ML (MAG RUN) 1 GM in IV 1 EA IV SCH (08:57)
[2024-06-28] MEDS: SODIUM CHLORIDE 3% 100 ML IV ONE ×3 (09:00→10:41)
[2024-06-28] MEDS ORDERED: SODIUM CHLORIDE 0.9% INJ 10 ML SYR IV PRN (10:35)
[2024-06-28] MEDS: VANCOMYCIN 750MG/150 ML IV BAG IV SCH (10:39)
[2024-06-28 12:21] LABS: ABG BASE EXCESS -14.8 (-2.0-2.0); ABG HCO3 13.4 MMOL/L (22.0-26.0); ABG O2 SATURATION 98.8 % (95.0-99.0); ABG PARTIAL PRESSURE CO2 41.7 mmHg (35.0-45.0); ABG PARTIAL PRESSURE O2 152.5 mmHg (75.0-100.0); ABG STANDARD HCO3 12.8 MMOL/L. (22.0-26.0); ABG TOTAL CO2 14.7 MMOL/L (22.0-29.0); BASO # 0.1 10^3/uL (0.0-0.2); BASO % 1.3 % (0.0-1.0); HEMATOCRIT 28.7 % (42.0-52.0); HEMOGLOBIN 9.2 g/dl (13.5-17.5); MEAN CORPUSCULAR HEMOGLOBIN 30.2 pg (27.0-33.0); MEAN CORPUSCULAR HGB CONC 32.1 g/dl (32.0-36.5); MEAN CORPUSCULAR VOLUME 94.1 fl (80.0-96.0); MONO # 0.1 10^3/uL (0.0-0.8); MONO % 1.7 % (2.0-8.0); NEUTROPHILS # 6.1 10^3/uL (1.5-8.5); NEUTROPHILS % 96.5 % (36.0-66.0); RED BLOOD COUNT 3.05 10^6/uL (4.30-6.10); WHITE BLOOD COUNT 6.3 10^3/uL (4.0-10.0)
[2024-06-28 12:25] LABS: ABG pH (ARTERIAL) 7.125 UNITS (7.350-7.450); PLATELET COUNT, AUTOMATED 17 10^3/uL (150-450)
[2024-06-28 12:31] LABS: INR 1.67; PARTIAL THROMBOPLASTIN TIME 47.5 SECONDS (24.8-34.2); PROTHROMBIN TIME 19.9 SECONDS (12.5-14.5)
[2024-06-28 12:44] LABS: CALCIUM LEVEL 6.3 MG/DL (8.5-10.1); CREATININE FOR GFR 2.49 MG/DL (0.70-1.30); GLOMERULAR FILTRATION RATE 34.6 (>56); POTASSIUM SERUM 5.5 MMOL/L (3.5-5.1)
[2024-06-28] MEDS: TRIMETHOPRIM/SULFAMETHOXAZOLE 160 MG in D5W 250 ML IV SCH (13:32)
[2024-06-28] MEDS: MICAFUNGIN SODIUM 100 MG in DEXTROSE 5% (D5W) MINI-BAG PLU 100 ML IV SCH (14:14)
[2024-06-28] MEDS: SODIUM BICARBONATE 150 MEQ in D5W 1,000 ML IV SCH (14:18)
[2024-06-28 14:20] LABS: ABG HCO3 11.8 MMOL/L (22.0-26.0); ABG O2 SATURATION 98.8 % (95.0-99.0); ABG PARTIAL PRESSURE CO2 31.3 mmHg (35.0-45.0); ABG STANDARD HCO3 12.9 MMOL/L. (22.0-26.0); ABG TOTAL CO2 12.8 MMOL/L (22.0-29.0)
[2024-06-28 14:21] LABS: ABG pH (ARTERIAL) 7.196 UNITS (7.350-7.450)
[2024-06-28 15:11] LABS: ALBUMIN 1.2 G/DL (3.2-5.2); BILIRUBIN,TOTAL 0.3 MG/DL (0.3-1.2); CALCIUM LEVEL 6.1 MG/DL (8.5-10.1); CREATININE FOR GFR 2.57 MG/DL (0.70-1.30); GLOMERULAR FILTRATION RATE 33.3 (>56); POTASSIUM SERUM 5.3 MMOL/L (3.5-5.1); TOTAL PROTEIN 4.2 G/DL (5.7-8.2)
[2024-06-28] MEDS ORDERED: SODIUM CHLORIDE 0.9% 1000 ML CRRT SCH (16:35)
[2024-06-28] MEDS ORDERED: SODIUM CHLORIDE 0.9% INJ 10 ML SYR CRRT PRN ×2 (17:00)
[2024-06-28] MEDS: HEPARIN 1,000UNITS/ML 10ML VIAL (FOR RADIOLOGY & DIALYSIS ONLY) CRRT PRN (17:23)
[2024-06-28] MEDS: HEPARIN 1000 UNIT/ML *20ML* SYRINGE CRRT CRRT ONE (17:31)
[2024-06-28] MEDS: INSULIN LISPRO (NovoLOG) PER UNIT SC SCH (17:41)
[2024-06-28 17:49] LABS: ABG HCO3 12.4 MMOL/L (22.0-26.0); ABG O2 SATURATION 84.7 % (95.0-99.0); ABG TOTAL CO2 13.2 MMOL/L (22.0-29.0); ABG pH (ARTERIAL) 7.279 UNITS (7.350-7.450)
[2024-06-28 17:53] LABS: IONIZED CALCIUM 3.6 MG/DL (4.5-5.3)
[2024-06-28 17:54] LABS: ABG PARTIAL PRESSURE O2 47.7 mmHg (75.0-100.0)
[2024-06-28 17:56] LABS: HEMATOCRIT 26.7 % (42.0-52.0); HEMOGLOBIN 8.8 g/dl (13.5-17.5); MEAN CORPUSCULAR HEMOGLOBIN 30.9 pg (27.0-33.0); MEAN CORPUSCULAR VOLUME 93.7 fl (80.0-96.0); RED BLOOD COUNT 2.85 10^6/uL (4.30-6.10); WHITE BLOOD COUNT 5.5 10^3/uL (4.0-10.0)
[2024-06-28] MEDS: SODIUM CHLORIDE 0.9% INJ 10 ML SYR IV SCH (18:00)
[2024-06-28 18:04] LABS: PLATELET COUNT, AUTOMATED 24 10^3/uL (150-450)
[2024-06-28 18:09] LABS: INR 1.82; PARTIAL THROMBOPLASTIN TIME 51.3 SECONDS (24.8-34.2); PROTHROMBIN TIME 21.3 SECONDS (12.5-14.5)
[2024-06-28 18:23] LABS: CREATININE FOR GFR 2.61 MG/DL (0.70-1.30); GLOMERULAR FILTRATION RATE 32.7 (>56); POTASSIUM SERUM 5.1 MMOL/L (3.5-5.1)
[2024-06-28 18:48] LABS: LYMPHOCYTES 3 % (16-44); METAMYELOCYTES 7 % (0-0); MONOCYTES 7 % (0-5); NEUTROPHILS 79 % (28-66); NUCLEATED RED BLOOD CELL 4 % (0-0)
[2024-06-28 18:49] LABS: ALBUMIN 1.1 G/DL (3.2-5.2); BURR CELLS 3+; CREATININE FOR GFR 2.58 MG/DL (0.70-1.30); GLOMERULAR FILTRATION RATE 33.2 (>56); MAGNESIUM LEVEL 1.9 MG/DL (1.8-2.4); PHOSPHORUS LEVEL 7.3 MG/DL (2.5-4.9); PLATELET ESTIMATE DECREASED (NORMAL); POTASSIUM SERUM 5.2 MMOL/L (3.5-5.1)
[2024-06-28 19:07] LABS: ABG BASE EXCESS -10.8 (-2.0-2.0); ABG HCO3 14.5 MMOL/L (22.0-26.0); ABG O2 SATURATION 92.3 % (95.0-99.0); ABG PARTIAL PRESSURE CO2 30.2 mmHg (35.0-45.0); ABG PARTIAL PRESSURE O2 65.7 mmHg (75.0-100.0); ABG STANDARD HCO3 15.8 MMOL/L. (22.0-26.0); ABG TOTAL CO2 15.4 MMOL/L (22.0-29.0); ABG pH (ARTERIAL) 7.298 UNITS (7.350-7.450)
[2024-06-28] MEDS: PANTOPRAZOLE 40MG VIAL IV SCH (20:15)
[2024-06-28 23:47] LABS: ABG BASE EXCESS -10.7 (-2.0-2.0); ABG HCO3 14.4 MMOL/L (22.0-26.0); ABG PARTIAL PRESSURE CO2 29.9 mmHg (35.0-45.0); ABG STANDARD HCO3 15.9 MMOL/L. (22.0-26.0); ABG TOTAL CO2 15.3 MMOL/L (22.0-29.0); ABG pH (ARTERIAL) 7.301 UNITS (7.350-7.450)
[2024-06-28 23:49] LABS: HEMOGLOBIN 9.7 g/dl (13.5-17.5); MEAN CORPUSCULAR HEMOGLOBIN 30.5 pg (27.0-33.0); MEAN CORPUSCULAR HGB CONC 33.4 g/dl (32.0-36.5); MEAN CORPUSCULAR VOLUME 91.2 fl (80.0-96.0); RED BLOOD COUNT 3.18 10^6/uL (4.30-6.10); WHITE BLOOD COUNT 5.7 10^3/uL (4.0-10.0)
[2024-06-28 23:53] LABS: PLATELET COUNT, AUTOMATED 28 10^3/uL (150-450)
[2024-06-29] VITALS (98 sets, daily range): BP systolic 87–124; BP diastolic 50–81; TEMP 95–97.5; O2SAT 87–89
[2024-06-29] MEDS ORDERED: CALCIUM GLUCONATE 1,000 MG in DEXTROSE 5% (D5W) MINI-BAG PLU 100 ML IV SCH
[2024-06-29 00:02] LABS: CALCIUM LEVEL 6.7 MG/DL (8.5-10.1); CREATININE FOR GFR 1.98 MG/DL (0.70-1.30); MAGNESIUM LEVEL 1.8 MG/DL (1.8-2.4); PHOSPHORUS LEVEL 5.2 MG/DL (2.5-4.9); POTASSIUM SERUM 4.3 MMOL/L (3.5-5.1)
[2024-06-29] MEDS: CALCIUM GLUCONATE 1,000 MG, VIAL MATE ADAPTER 1 EACH in NS 100 ML IV SCH ×2 (00:19→06:10)
[2024-06-29] MEDS: MAG SULF 1GM/100ML (MAG RUN) 1 GM in IV 1 EA IV ONE ×3 (00:51→14:45)
[2024-06-29 04:23] LABS: ABG BASE EXCESS -6.6 (-2.0-2.0); ABG HCO3 17.9 MMOL/L (22.0-26.0); ABG O2 SATURATION 90.6 % (95.0-99.0); ABG PARTIAL PRESSURE O2 58.3 mmHg (75.0-100.0); ABG TOTAL CO2 18.9 MMOL/L (22.0-29.0); ABG pH (ARTERIAL) 7.365 UNITS (7.350-7.450)
[2024-06-29 05:22] LABS: IONIZED CALCIUM 4.3 MG/DL (4.5-5.3)
[2024-06-29 05:28] LABS: HEMATOCRIT 27.2 % (42.0-52.0); HEMOGLOBIN 9.3 g/dl (13.5-17.5); MEAN CORPUSCULAR HEMOGLOBIN 30.4 pg (27.0-33.0); MEAN CORPUSCULAR HGB CONC 34.2 g/dl (32.0-36.5); MEAN CORPUSCULAR VOLUME 88.9 fl (80.0-96.0); RED BLOOD COUNT 3.06 10^6/uL (4.30-6.10); WHITE BLOOD COUNT 4.6 10^3/uL (4.0-10.0)
[2024-06-29 05:31] LABS: PLATELET COUNT, AUTOMATED 15 10^3/uL (150-450)
[2024-06-29 06:01] LABS: CREATININE FOR GFR 1.68 MG/DL (0.70-1.30); GLOMERULAR FILTRATION RATE 54.4 (>56); MAGNESIUM LEVEL 1.8 MG/DL (1.8-2.4); PHOSPHORUS LEVEL 4.4 MG/DL (2.5-4.9); POTASSIUM SERUM 4.3 MMOL/L (3.5-5.1)
[2024-06-29 08:25] LABS: ABG BASE EXCESS -4.9 (-2.0-2.0); ABG HCO3 18.8 MMOL/L (22.0-26.0); ABG O2 SATURATION 86.8 % (95.0-99.0); ABG STANDARD HCO3 20.2 MMOL/L. (22.0-26.0); ABG TOTAL CO2 19.7 MMOL/L (22.0-29.0); ABG pH (ARTERIAL) 7.415 UNITS (7.350-7.450)
[2024-06-29 08:41] LABS: ABG PARTIAL PRESSURE O2 48.6 mmHg (75.0-100.0)
[2024-06-29] MEDS: VANCOMYCIN HCL 500 MG in DEXTROSE 5% (D5W) MINI-BAG PLU 100 ML IV SCH (09:16)
[2024-06-29 10:27] LABS: ABG BASE EXCESS -4.8 (-2.0-2.0); ABG HCO3 19.6 MMOL/L (22.0-26.0); ABG O2 SATURATION 85.7 % (95.0-99.0); ABG PARTIAL PRESSURE CO2 33.4 mmHg (35.0-45.0); ABG STANDARD HCO3 20.3 MMOL/L. (22.0-26.0); ABG TOTAL CO2 20.6 MMOL/L (22.0-29.0); ABG pH (ARTERIAL) 7.386 UNITS (7.350-7.450)
[2024-06-29 12:01] LABS: IONIZED CALCIUM 4.4 MG/DL (4.5-5.3)
[2024-06-29 12:12] LABS: HEMATOCRIT 25.5 % (42.0-52.0); HEMOGLOBIN 8.9 g/dl (13.5-17.5); MEAN CORPUSCULAR HEMOGLOBIN 30.8 pg (27.0-33.0); MEAN CORPUSCULAR HGB CONC 34.9 g/dl (32.0-36.5); MEAN CORPUSCULAR VOLUME 88.2 fl (80.0-96.0); RED BLOOD COUNT 2.89 10^6/uL (4.30-6.10); WHITE BLOOD COUNT 3.3 10^3/uL (4.0-10.0)
[2024-06-29 12:13] LABS: PLATELET COUNT, AUTOMATED 31 10^3/uL (150-450)
[2024-06-29 12:30] LABS: ABG BASE EXCESS -3.6 (-2.0-2.0); ABG HCO3 20.9 MMOL/L (22.0-26.0); ABG O2 SATURATION 85.2 % (95.0-99.0); ABG PARTIAL PRESSURE CO2 35.4 mmHg (35.0-45.0); ABG STANDARD HCO3 21.3 MMOL/L. (22.0-26.0); ABG pH (ARTERIAL) 7.389 UNITS (7.350-7.450)
[2024-06-29 12:32] LABS: ABG PARTIAL PRESSURE O2 47.6 mmHg (75.0-100.0)
[2024-06-29 12:34] LABS: CALCIUM LEVEL 7.5 MG/DL (8.5-10.1); CREATININE FOR GFR 1.58 MG/DL (0.70-1.30); GLOMERULAR FILTRATION RATE 58.4 (>56); MAGNESIUM LEVEL 1.9 MG/DL (1.8-2.4); PHOSPHORUS LEVEL 4.4 MG/DL (2.5-4.9); POTASSIUM SERUM 4.2 MMOL/L (3.5-5.1)
[2024-06-29] MEDS: CALCIUM GLUCONATE 1,000 MG, VIAL MATE ADAPTER 1 EACH in NS 100 ML IV ONE ×2 (12:49→18:36)
[2024-06-29 13:11] LABS: HIV-1 RNA PCR QUANT 2 <20 DETECTED copies/mL (NOT DETECTED); HIV-1 RNA PCR QUANT 3 <1.30 DETECTED (NOT DETECTED)
[2024-06-29] MEDS: HYDROCORTISONE 100MG/2ML VIAL IV SCH (15:44)
[2024-06-29 18:03] LABS: ABG BASE EXCESS -3.1 (-2.0-2.0); ABG HCO3 21.9 MMOL/L (22.0-26.0); ABG O2 SATURATION 93.8 % (95.0-99.0); ABG PARTIAL PRESSURE CO2 38.9 mmHg (35.0-45.0); ABG PARTIAL PRESSURE O2 73.6 mmHg (75.0-100.0); ABG STANDARD HCO3 21.8 MMOL/L. (22.0-26.0); ABG TOTAL CO2 23.1 MMOL/L (22.0-29.0); ABG pH (ARTERIAL) 7.369 UNITS (7.350-7.450)
[2024-06-29 18:09] LABS: IONIZED CALCIUM 4.5 MG/DL (4.5-5.3)
[2024-06-29 18:12] LABS: HEMATOCRIT 25.3 % (42.0-52.0); HEMOGLOBIN 8.7 g/dl (13.5-17.5); MEAN CORPUSCULAR HEMOGLOBIN 29.9 pg (27.0-33.0); MEAN CORPUSCULAR HGB CONC 34.4 g/dl (32.0-36.5); MEAN CORPUSCULAR VOLUME 86.9 fl (80.0-96.0); RED BLOOD COUNT 2.91 10^6/uL (4.30-6.10); WHITE BLOOD COUNT 3.1 10^3/uL (4.0-10.0)
[2024-06-29 18:26] LABS: BLOOD UREA NITROGEN 29 MG/DL (9-23); CALCIUM LEVEL 7.7 MG/DL (8.5-10.1); CARBON DIOXIDE LEVEL 22 MMOL/L (20-31); CHLORIDE LEVEL 102 MMOL/L (98-107); CREATININE FOR GFR 1.45 MG/DL (0.70-1.30); GLOMERULAR FILTRATION RATE > 60.0 (>56); GLUCOSE, FASTING 50 MG/DL (60-100); PHOSPHORUS LEVEL 4.3 MG/DL (2.5-4.9); POTASSIUM SERUM 4.3 MMOL/L (3.5-5.1); SODIUM LEVEL 132 MMOL/L (136-145)
[2024-06-29 18:45] LABS: PLATELET COUNT, AUTOMATED 18 10^3/uL (150-450)
[2024-06-29] MEDS: LEVEMIR (INSULIN DETEMIR) 1 UNITS/0.01ML SC SCH (20:54)
[2024-06-29] MEDS: NOREPINEPHRINE BITARTRATE 16 MG in D5W 484 ML IV SCH (21:22)
[2024-06-29] MEDS: SODIUM CHLORIDE 0.9% INJ 10 ML SYR CRRT PRN ×2 (22:11)
[2024-06-29] MEDS: HEPARIN 1,000UNITS/ML 10ML VIAL (FOR RADIOLOGY & DIALYSIS ONLY) CRRT PRN (22:11)
[2024-06-29 23:28] LABS: ABG BASE EXCESS -4.4 (-2.0-2.0); ABG O2 SATURATION 91.6 % (95.0-99.0); ABG PARTIAL PRESSURE CO2 39.8 mmHg (35.0-45.0); ABG PARTIAL PRESSURE O2 65.7 mmHg (75.0-100.0); ABG STANDARD HCO3 20.7 MMOL/L. (22.0-26.0); ABG TOTAL CO2 22.2 MMOL/L (22.0-29.0); IONIZED CALCIUM 4.4 MG/DL (4.5-5.3)
[2024-06-29 23:30] LABS: HEMATOCRIT 24.8 % (42.0-52.0); HEMOGLOBIN 8.5 g/dl (13.5-17.5); MEAN CORPUSCULAR HGB CONC 34.3 g/dl (32.0-36.5); MEAN CORPUSCULAR VOLUME 87.6 fl (80.0-96.0); RED BLOOD COUNT 2.83 10^6/uL (4.30-6.10); WHITE BLOOD COUNT 2.9 10^3/uL (4.0-10.0)
[2024-06-29 23:37] LABS: PLATELET COUNT, AUTOMATED 9 10^3/uL (150-450)
[2024-06-29 23:54] LABS: BLOOD UREA NITROGEN 28 MG/DL (9-23); CALCIUM LEVEL 7.5 MG/DL (8.5-10.1); CARBON DIOXIDE LEVEL 22 MMOL/L (20-31); CHLORIDE LEVEL 103 MMOL/L (98-107); CREATININE FOR GFR 1.46 MG/DL (0.70-1.30); GLOMERULAR FILTRATION RATE > 60.0 (>56); GLUCOSE, FASTING 54 MG/DL (60-100); MAGNESIUM LEVEL 1.8 MG/DL (1.8-2.4); PHOSPHORUS LEVEL 4.3 MG/DL (2.5-4.9); POTASSIUM SERUM 4.4 MMOL/L (3.5-5.1); SODIUM LEVEL 133 MMOL/L (136-145)
[2024-06-30] VITALS (95 sets, daily range): BP systolic 84–141; BP diastolic 44–85; TEMP 93.6–96.4; O2SAT 85–93
[2024-06-30] MEDS: CALCIUM GLUCONATE 1,000 MG, VIAL MATE ADAPTER 1 EACH in NS 100 ML IV ONE ×3 (00:11→18:48)
[2024-06-30] MEDS: MAG SULF 1GM/100ML (MAG RUN) 1 GM in IV 1 EA IV ONE ×2 (01:14→15:01)
[2024-06-30 05:15] LABS: ABG BASE EXCESS -1.7 (-2.0-2.0); ABG HCO3 24.1 MMOL/L (22.0-26.0); ABG O2 SATURATION 87.5 % (95.0-99.0); ABG PARTIAL PRESSURE CO2 45.3 mmHg (35.0-45.0); ABG PARTIAL PRESSURE O2 55.3 mmHg (75.0-100.0); ABG STANDARD HCO3 22.9 MMOL/L. (22.0-26.0); ABG TOTAL CO2 25.4 MMOL/L (22.0-29.0); ABG pH (ARTERIAL) 7.343 UNITS (7.350-7.450)
[2024-06-30 05:16] LABS: IONIZED CALCIUM 4.8 MG/DL (4.5-5.3)
[2024-06-30 05:21] LABS: HEMATOCRIT 23.6 % (42.0-52.0); HEMOGLOBIN 8.3 g/dl (13.5-17.5); MEAN CORPUSCULAR HEMOGLOBIN 30.9 pg (27.0-33.0); MEAN CORPUSCULAR HGB CONC 35.2 g/dl (32.0-36.5); MEAN CORPUSCULAR VOLUME 87.7 fl (80.0-96.0); RED BLOOD COUNT 2.69 10^6/uL (4.30-6.10); WHITE BLOOD COUNT 2.4 10^3/uL (4.0-10.0)
[2024-06-30 05:22] LABS: PLATELET COUNT, AUTOMATED 22 10^3/uL (150-450)
[2024-06-30 05:48] LABS: BLOOD UREA NITROGEN 24 MG/DL (9-23); CALCIUM LEVEL 7.8 MG/DL (8.5-10.1); CARBON DIOXIDE LEVEL 24 MMOL/L (20-31); CHLORIDE LEVEL 103 MMOL/L (98-107); CREATININE FOR GFR 1.21 MG/DL (0.70-1.30); GLOMERULAR FILTRATION RATE > 60.0 (>56); GLUCOSE, FASTING 46 MG/DL (60-100); PHOSPHORUS LEVEL 4.4 MG/DL (2.5-4.9); POTASSIUM SERUM 4.2 MMOL/L (3.5-5.1); SODIUM LEVEL 134 MMOL/L (136-145)
[2024-06-30] MEDS: DEXTROSE 50% 50ML SYRINGE IV STA (08:52)
[2024-06-30 10:09] LABS: BASOPHILS 0 % (Not Estab.); COMMENTS FOR T-CELL CD4 Note: (.); EOSINOPHILS 0 % (Not Estab.); HCT 28.7 % (37.5-51.0); HGB 9.7 g/dL (13.0-17.7); LYMPHOCYTES 3 % (Not Estab.); LYMPHOCYTES ABSOLUTE 0.2 x10E3/uL (0.7-3.1); MCH 29.9 pg (26.6-33.0); MCHC 33.8 g/dL (31.5-35.7); MCV 89 fL (79-97); MONOCYTES 4 % (Not Estab.); MONOCYTES ABSOLUTE 0.2 x10E3/uL (0.1-0.9); NEUTROPHILS 93 % (Not Estab.); NEUTROPHILS ABSOLUTE 5.8 x10E3/uL (1.4-7.0); PLT 28 x10E3/uL (150-450); RBC 3.24 x10E6/uL (4.14-5.80); RDW 12.4 % (11.6-15.4); WBC 6.2 x10E3/uL (3.4-10.8)
[2024-06-30 12:21] LABS: IONIZED CALCIUM 4.4 MG/DL (4.5-5.3)
[2024-06-30 12:33] LABS: ABG BASE EXCESS -4.1 (-2.0-2.0); ABG HCO3 21.6 MMOL/L (22.0-26.0); ABG O2 SATURATION 89.8 % (95.0-99.0); ABG PARTIAL PRESSURE CO2 42.2 mmHg (35.0-45.0); ABG PARTIAL PRESSURE O2 61.8 mmHg (75.0-100.0); ABG STANDARD HCO3 20.9 MMOL/L. (22.0-26.0); ABG TOTAL CO2 22.9 MMOL/L (22.0-29.0); ABG pH (ARTERIAL) 7.327 UNITS (7.350-7.450)
[2024-06-30 12:36] LABS: HEMATOCRIT 21.5 % (42.0-52.0); HEMOGLOBIN 7.6 g/dl (13.5-17.5); MEAN CORPUSCULAR HEMOGLOBIN 30.9 pg (27.0-33.0); MEAN CORPUSCULAR HGB CONC 35.3 g/dl (32.0-36.5); MEAN CORPUSCULAR VOLUME 87.4 fl (80.0-96.0); RED BLOOD COUNT 2.46 10^6/uL (4.30-6.10); WHITE BLOOD COUNT 3.1 10^3/uL (4.0-10.0)
[2024-06-30 12:47] LABS: BLOOD UREA NITROGEN 22 MG/DL (9-23); CALCIUM LEVEL 7.6 MG/DL (8.5-10.1); CARBON DIOXIDE LEVEL 25 MMOL/L (20-31); CHLORIDE LEVEL 103 MMOL/L (98-107); CREATININE FOR GFR 1.15 MG/DL (0.70-1.30); GLOMERULAR FILTRATION RATE > 60.0 (>56); GLUCOSE, FASTING 98 MG/DL (60-100); MAGNESIUM LEVEL 1.9 MG/DL (1.8-2.4); PHOSPHORUS LEVEL 4.4 MG/DL (2.5-4.9); POTASSIUM SERUM 4.2 MMOL/L (3.5-5.1); SODIUM LEVEL 135 MMOL/L (136-145)
[2024-06-30 12:52] LABS: HEPATITIS B SURFACE ANTIBODY NEGATIVE (POSITIVE); PLATELET COUNT, AUTOMATED 10 10^3/uL (150-450)
[2024-06-30 13:03] LABS: HEPATITIS B SURFACE ANTIGEN NEGATIVE (NEGATIVE)
[2024-06-30 13:24] LABS: HEPATITIS B CORE ANTIBODY IGM NEGATIVE (NEGATIVE)
[2024-06-30 17:45] LABS: ABG BASE EXCESS -4.9 (-2.0-2.0); ABG HCO3 20.7 MMOL/L (22.0-26.0); ABG O2 SATURATION 94.8 % (95.0-99.0); ABG PARTIAL PRESSURE CO2 40.3 mmHg (35.0-45.0); ABG PARTIAL PRESSURE O2 85.6 mmHg (75.0-100.0); ABG STANDARD HCO3 20.3 MMOL/L. (22.0-26.0); ABG TOTAL CO2 21.9 MMOL/L (22.0-29.0); ABG pH (ARTERIAL) 7.328 UNITS (7.350-7.450)
[2024-06-30 17:47] LABS: IONIZED CALCIUM 4.6 MG/DL (4.5-5.3)
[2024-06-30 17:55] LABS: HEMATOCRIT 21.6 % (42.0-52.0); HEMOGLOBIN 7.4 g/dl (13.5-17.5); MEAN CORPUSCULAR HEMOGLOBIN 30.1 pg (27.0-33.0); MEAN CORPUSCULAR HGB CONC 34.3 g/dl (32.0-36.5); MEAN CORPUSCULAR VOLUME 87.8 fl (80.0-96.0); RED BLOOD COUNT 2.46 10^6/uL (4.30-6.10); WHITE BLOOD COUNT 3.5 10^3/uL (4.0-10.0)
[2024-06-30 17:58] LABS: PLATELET COUNT, AUTOMATED 41 10^3/uL (150-450)
[2024-06-30 18:19] LABS: BLOOD UREA NITROGEN 23 MG/DL (9-23); CALCIUM LEVEL 7.9 MG/DL (8.5-10.1); CARBON DIOXIDE LEVEL 25 MMOL/L (20-31); CHLORIDE LEVEL 103 MMOL/L (98-107); CREATININE FOR GFR 1.09 MG/DL (0.70-1.30); GLOMERULAR FILTRATION RATE > 60.0 (>56); GLUCOSE, FASTING 69 MG/DL (60-100); PHOSPHORUS LEVEL 4.6 MG/DL (2.5-4.9); SODIUM LEVEL 133 MMOL/L (136-145)
[2024-06-30 23:24] LABS: ABG BASE EXCESS -2.7 (-2.0-2.0); ABG HCO3 23.2 MMOL/L (22.0-26.0); ABG O2 SATURATION 98.4 % (95.0-99.0); ABG PARTIAL PRESSURE CO2 45.9 mmHg (35.0-45.0); ABG STANDARD HCO3 22.2 MMOL/L. (22.0-26.0); ABG TOTAL CO2 24.6 MMOL/L (22.0-29.0); ABG pH (ARTERIAL) 7.322 UNITS (7.350-7.450)
[2024-07-01] VITALS (53 sets, daily range): BP systolic 89–136; BP diastolic 47–76; TEMP 94.8–97.7
[2024-07-01 00:09] LABS: IONIZED CALCIUM 4.6 MG/DL (4.5-5.3)
[2024-07-01 00:17] LABS: HEMATOCRIT 20.3 % (42.0-52.0); HEMOGLOBIN 7.2 g/dl (13.5-17.5); MEAN CORPUSCULAR HGB CONC 35.5 g/dl (32.0-36.5); MEAN CORPUSCULAR VOLUME 87.5 fl (80.0-96.0); RED BLOOD COUNT 2.32 10^6/uL (4.30-6.10); WHITE BLOOD COUNT 6.2 10^3/uL (4.0-10.0)
[2024-07-01 00:18] LABS: PLATELET COUNT, AUTOMATED 19 10^3/uL (150-450)
[2024-07-01 00:39] LABS: BLOOD UREA NITROGEN 20 MG/DL (9-23); CALCIUM LEVEL 7.9 MG/DL (8.5-10.1); CARBON DIOXIDE LEVEL 23 MMOL/L (20-31); CHLORIDE LEVEL 103 MMOL/L (98-107); CREATININE FOR GFR 1.06 MG/DL (0.70-1.30); GLOMERULAR FILTRATION RATE > 60.0 (>56); GLUCOSE, FASTING 115 MG/DL (60-100); MAGNESIUM LEVEL 1.9 MG/DL (1.8-2.4); PHOSPHORUS LEVEL 4.4 MG/DL (2.5-4.9); SODIUM LEVEL 134 MMOL/L (136-145)
[2024-07-01] MEDS: MAG SULF 1GM/100ML (MAG RUN) 1 GM in IV 1 EA IV ONE (01:02)
[2024-07-01] MEDS: diphenhydrAMINE 50MG/ML VIAL IV STA (01:30)
[2024-07-01] MEDS: CALCIUM GLUCONATE 1,000 MG, VIAL MATE ADAPTER 1 EACH in NS 100 ML IV ONE ×2 (02:18→08:03)
[2024-07-01 05:41] LABS: ABG BASE EXCESS -2.3 (-2.0-2.0); ABG HCO3 23.2 MMOL/L (22.0-26.0); ABG O2 SATURATION 98.8 % (95.0-99.0); ABG PARTIAL PRESSURE O2 148.4 mmHg (75.0-100.0); ABG STANDARD HCO3 22.5 MMOL/L. (22.0-26.0); ABG TOTAL CO2 24.5 MMOL/L (22.0-29.0); ABG pH (ARTERIAL) 7.349 UNITS (7.350-7.450)
[2024-07-01 05:43] LABS: IONIZED CALCIUM 4.5 MG/DL (4.5-5.3)
[2024-07-01 05:49] LABS: MEAN CORPUSCULAR HGB CONC 34.2 g/dl (32.0-36.5); MEAN CORPUSCULAR VOLUME 87.6 fl (80.0-96.0); RED BLOOD COUNT 2.17 10^6/uL (4.30-6.10); WHITE BLOOD COUNT 8.7 10^3/uL (4.0-10.0)
[2024-07-01 05:52] LABS: PLATELET COUNT, AUTOMATED 10 10^3/uL (150-450)
[2024-07-01 05:55] LABS: HEMOGLOBIN 6.5 g/dl (13.5-17.5)
[2024-07-01 06:22] LABS: BLOOD UREA NITROGEN 21 MG/DL (9-23); CALCIUM LEVEL 7.6 MG/DL (8.5-10.1); CARBON DIOXIDE LEVEL 24 MMOL/L (20-31); CHLORIDE LEVEL 104 MMOL/L (98-107); CREATININE FOR GFR 1.15 MG/DL (0.70-1.30); GLOMERULAR FILTRATION RATE > 60.0 (>56); GLUCOSE, FASTING 98 MG/DL (60-100); PHOSPHORUS LEVEL 4.3 MG/DL (2.5-4.9); SODIUM LEVEL 135 MMOL/L (136-145)
[2024-07-01] MEDS ORDERED: HYOSCYAMINE SULFATE 0.125 MG SUBL TABLET PO PRN (15:25)
[2024-07-01] MEDS ORDERED: MORPHINE 10MG/0.5ML ORAL CONCENTRATE SOLUTION U/D SL PRN (15:25)
[2024-07-01] MEDS ORDERED: ATROPINE SULFATE 1% OPHTH SOLN 2ML BTL SL PRN (15:25)
[2024-07-01] MEDS ORDERED: ONDANSETRON 4MG 2ML VIAL IV PRN (15:25)
[2024-07-01] MEDS ORDERED: FLEET ENEMA PR PRN (15:25)
[2024-07-01] MEDS ORDERED: SCOPOLAMINE 1MG TRANSDERMAL PATCH TOP PRN (15:25)
[2024-07-01] MEDS ORDERED: LORazepam 2 MG/ML 1ML VIAL IV PRN (15:25)
[2024-07-01] MEDS: MORPHINE 2 MG/ML 1ML VIAL IV PRN (16:53)
[2024-07-02 16:57] LABS: HEPATITIS B CORE ANTIBODY IGG NON-REACTIVE (NON-REACTIVE)
[2024-07-03 07:43] LABS: CRYTPOCOCCUS SOURCE Serum
== END 2024-07-01 19:34 | disposition expired | DRG 890 ==
LOC: EDBD 04:15 → M ED 04:15 → M ED INP 08:17 → EEVIPCON 08:17 → M ICU 09:52
PROVIDERS: ADMIT Internal Medicine Critical Care Medicine; ATTEND Internal Medicine Critical Care Medicine
PROC: B246ZZZ Ultrasonography of Right and Left Heart (ICD-10-PCS; 2024-06-26)
PROC: 05HM33Z Insertion of Infusion Device into Right Internal Jugular Vein, Percutaneous Approach (ICD-10-PCS; 2024-06-26)
PROC: 0BH17EZ Insertion of Endotracheal Airway into Trachea, Via Natural or Artificial Opening (ICD-10-PCS; principal; 2024-06-27)
PROC: 5A1945Z Respiratory Ventilation, 24-96 Consecutive Hours (ICD-10-PCS; 2024-06-27)
PROC: 30233R1 Transfusion of Nonautologous Platelets into Peripheral Vein, Percutaneous Approach (ICD-10-PCS; 2024-06-27)
PROC: 05HN33Z Insertion of Infusion Device into Left Internal Jugular Vein, Percutaneous Approach (ICD-10-PCS; 2024-06-27)
PROC: 0B9F8ZX Drainage of Right Lower Lung Lobe, Via Natural or Artificial Opening Endoscopic, Diagnostic (ICD-10-PCS; 2024-06-27)
PROC: 0B9J8ZX Drainage of Left Lower Lung Lobe, Via Natural or Artificial Opening Endoscopic, Diagnostic (ICD-10-PCS; 2024-06-27)
PROC: 02HV33Z Insertion of Infusion Device into Superior Vena Cava, Percutaneous Approach (ICD-10-PCS; 2024-06-28)
DX: A41.9 Sepsis, unspecified organism (principal); J96.01 Acute respiratory failure with hypoxia; R65.21 Severe sepsis with septic shock; E43 Unspecified severe protein-calorie malnutrition; G93.41 Metabolic encephalopathy; B20 Human immunodeficiency virus [HIV] disease; J15.212 Pneumonia due to Methicillin resistant Staphylococcus aureus; E11.10 Type 2 diabetes mellitus with ketoacidosis without coma; N17.9 Acute kidney failure, unspecified; E87.0 Hyperosmolality and hypernatremia; K86.0 Alcohol-induced chronic pancreatitis; E11.65 Type 2 diabetes mellitus with hyperglycemia; Z66 Do not resuscitate; I10 Essential (primary) hypertension; F32.A Depression, unspecified; K21.9 Gastro-esophageal reflux disease without esophagitis; E78.5 Hyperlipidemia, unspecified; J45.909 Unspecified asthma, uncomplicated; D64.9 Anemia, unspecified; Z79.82 Long term (current) use of aspirin; Z79.4 Long term (current) use of insulin; Z79.84 Long term (current) use of oral hypoglycemic drugs; Z79.899 Other long term (current) drug therapy; Z88.8 Allergy status to other drugs, medicaments and biological substances; Z91.018 Allergy to other foods